=== PATIENT | male | born 1970 | race Hispanic/Latino ===

== ENCOUNTER 2017-03-04 19:57 | Emergency (ER) | payer BC ==
[~2017-03-04] VITALS: Ht 193 cm; Wt 176.9 kg
[~2017-03-04 19:57] MED LIST: ALBUTEROL SULF8.5 GM; ALBUTEROL SULF8.5 GM INH; AMLODIPINE BESY10 MG PO; AMLODIPINE-BEN1 EAC5 PO; ASPIR 8181 MG PO; ASPIRIN325 MG PO; ATORVASTATIN CA40 MG PO; BACLOFEN10 MG PO; BACTRIM DS TAB1 EACH PO; CARVEDILOL25 MG PO; CLOPIDOGREL75 MG PO; CLOTRIMAZOLE15 GM TOP; COREG3.125 MG PO; CYCLOBENZAPRINE10 MG PO; DICYCLOMINE HCL20 MG PO; DOXYCYCLINE HY100 MG PO; FENOFIBRATE160 MG PO; FIORINAL 50-321 EACH PO; GABAPENTIN300 MG PO; HUMALOG100 UNIT/3 SQ; HYDRALAZINE HCL50 MG PO; HYDROXYZINE HCL25 MG PO; IBUPROFEN400 MG PO; ISOSORBIDE MONO30 MG PO; Insulin Detemir SQ; LEVOFLOXACIN500 MG PO; LEVOTHYROXINE50 MCG PO; LISINOPRIL10 MG PO; MELOXICAM7.5 MG PO; METFORMIN HCL500 MG PO; METOCLOPRAMIDE10 MG PO; NITROSTAT0.4 MG SL; NORCO 10-325 T1 EACH; NOVOLOG MI100 UNITS/ SQ; PANTOPRAZOLE SO40 MG PO; PEPCID20 MG PO; PROAIR HFA INH8.5 GM; TUSSIONEX PENN480 ML PO; TYLENOL WITH C1 EACH PO; ULTRAM 50MG50 MG PO; URSO250 MG PO; ZOFRAN ODT4 MG; ZOLOFT50 MG PO; [UNRECOGNIZED DRUG - REMARK] PO
[2017-03-04] MEDS ORDERED: HYDROCODONE/APAP 10MG-325MG TAB PO ONE (21:15)
[2017-03-04] MEDS ORDERED: NIFEDIPINE 10 MG CAP PO ONE (21:15)
[2017-03-04 21:29] LABS: BILIRUBIN,URINE NEGATIVE (NEGATIVE); CLARITY,URINE CLEAR (CLEAR); COLOR,URINE YELLOW (YELLOW); KETONES,URINE NEGATIVE (NEGATIVE); LEUKOCYTE ESTERASE ,URINE NEGATIVE (NEGATIVE); NITRITE,URINE NEGATIVE (NEGATIVE); URINE UROBILINOGEN 0.2 mg/dL (0.2 - 1)
[2017-03-04 21:30] LABS: PROTEIN,URINE DIPSTICK 2+ (NEGATIVE)
[2017-03-04 21:36] LABS: MUCUS,URINE FEW (RARE); RBC,URINE 0-5 /HPF (0-5); WBC,URINE (MAN) 0-5 /HPF (0-5)
--- NOTE | 2017-03-04 22:24 | Diagnostic Imaging Report ---
Exam: US TESTICULAR DOPPLER [facility], US TESTICULAR Clinical History: \S\SWELLING PAIN L TESTICLE \S\N Technique: Sonographic evaluation of the testicles using grayscale and color Doppler. Findings. Both testes are normal in echogenicity and size without intratesticular mass. The right testes measures 5.0 x 2.7 x 3.5 cm and the left testes measures 4.7 x 3.1 x 4.2 cm. Arterial and venous flow is documented to bilateral testicles. There is asymmetrically increased flow to the left testicle when compared to the right. Small left hydrocele with minimal internal echoes suggesting some degree of complexity. No varicocele. Both epididymides are normal in appearance, the left slightly larger than the right but without increased vascularity visible. Impression: 1. Left orchitis. Associated small minimally complex hydrocele. 2. No evidence of torsion. Signed by: Dr Rosangela Maravilla MD on 03/04/2017 10:21 PM
--- NOTE | 2017-03-04 22:24 | Diagnostic Imaging Report ---
Exam: US TESTICULAR DOPPLER [facility], US TESTICULAR Clinical History: \S\SWELLING PAIN L TESTICLE \S\N Technique: Sonographic evaluation of the testicles using grayscale and color Doppler. Findings. Both testes are normal in echogenicity and size without intratesticular mass. The right testes measures 5.0 x 2.7 x 3.5 cm and the left testes measures 4.7 x 3.1 x 4.2 cm. Arterial and venous flow is documented to bilateral testicles. There is asymmetrically increased flow to the left testicle when compared to the right. Small left hydrocele with minimal internal echoes suggesting some degree of complexity. No varicocele. Both epididymides are normal in appearance, the left slightly larger than the right but without increased vascularity visible. Impression: 1. Left orchitis. Associated small minimally complex hydrocele. 2. No evidence of torsion. Signed by: Dr Rosangela Maravilla MD on 03/04/2017 10:21 PM
== END 2017-03-04 23:29 | disposition home or self-care (01) ==
LOC: ER 19:57
DX: R30.0 Dysuria (principal); N45.2 Orchitis; I10 Essential (primary) hypertension; E11.9 Type 2 diabetes mellitus without complications
CPT/HCPCS: 76870; 81001; 87086; 93976; 99283

== ENCOUNTER 2017-03-06 11:10 | Emergency (ER) | payer BC ==
[~2017-03-06] VITALS: Ht 193 cm; Wt 176.9 kg
== END 2017-03-06 12:28 | disposition home or self-care (01) ==
LOC: ER 11:10
DX: N45.1 Epididymitis (principal); I10 Essential (primary) hypertension; E11.9 Type 2 diabetes mellitus without complications; I51.9 Heart disease, unspecified; N28.9 Disorder of kidney and ureter, unspecified
CPT/HCPCS: 99282

== ENCOUNTER 2017-06-20 11:38 | Emergency (ER) | payer BC ==
[~2017-06-20] VITALS: Ht 195.6 cm; Wt 176.9 kg
--- OUTSIDE RECORDS SUMMARY | 2017-06-20 11:40 | XMS REPORT | Clinical Summary ---
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 ERCP Clinical History: abnormal imaging Impression: Intraoperative images are obtained. The radiologist is not present during the procedure. Images are presented for interpretation at the completion of the procedure. Please refer to the procedure report for more details. Number of images obtained: 2 Fluoroscopic time: Not provided Signed: Vu Longoria MD Report Verified Date/Time: 06/22/2016 19:49:39 Reading Location: [address] Consult Reading Room * Tissue Exam (06/21/2016 6:03 PM) Component Value Ref Range Case Report Surgical Pathology Report Case: [id number] Authorizing Provider: Madison Barnard MD Ordering Provider: Madison Barnard MD Ordering Location: [address] Collected: 06/21/2016 1803 Service Pathologist: Odilia Head, Received: [id number] Specimen: Biopsy, Gastric DIAGNOSIS STOMACH, ENDOSCOPIC BIOPSY: - ANTRAL TYPE GASTRIC MUCOSA WITH MILD CHRONIC INFLAMMATION AND REACTIVE GASTROPATHY - NO DEFINITE HELICOBACTER PYLORI-LIKE ORGANISMS SEEN ON WARTHIN-STARRY STAIN - NO INTESTINAL METAPLASIA, DYSPLASIA OR MALIGNANCY NOTED Signing Pathologist Direct Phone Line: [phone] CPT Code(s) 39983; 86125 CLINICAL HISTORY Abnormal imaging SPECIMEN SOURCE Gastric biopsy GROSS DESCRIPTION The specimen is received in a formalin-filled container labeled with the patient's information and labeled "gastric biopsy" and consists of two round fragments of brady-red soft tissue measuring 0.2 and 0.4 cm, submitted entirely in A1. CG/ew MICROSCOPIC DESCRIPTION PERFORMED SPECIAL STUDIES The following special studies were performed on this case and the interpretation is incorporated in the diagnostic report above: WARTHIN-STARRICARDO Specimen Performing Laboratory Tissue - Biopsy, Gastric [address] [address] * Prothrombin time/INR (06/21/2016 5:13 AM) Component Value Ref Range Protime 14.4 11.7 - 14.7 seconds INR 1.1 <=5.9 Specimen Performing Laboratory Blood - Arm, Left [address] [address] Narrative RECOMMENDED COUMADIN/WARFARIN INR THERAPY RANGES STANDARD DOSE: 2.0 - 3.0 Includes: PROPHYLAXIS for venous thrombosis, systemic embolization; TREATMENT for venous thrombosis and/or pulmonary embolus. HIGH RISK: Target INR is 2.5-3.5 for patients with mechanical heart valves. * Triglycerides (06/20/2016 5:15 AM) Component Value Ref Range Triglycerides 351 mg/dL Specimen Performing Laboratory Blood - Arm, Right [address] [address] Narrative TRIGLYCERIDE REFERENCE RANGE Low Risk<150 Borderline Risk 150-199 High [id number] Very High Risk >=500 after 06/19/2016
--- OUTSIDE RECORDS SUMMARY | 2017-06-20 11:41 | XMS REPORT ---
Author [facility] Address Unknown Phone Unavailable Care Team Providers Care Political Science Professor Name Role Phone NICO WISDOM Unavailable Unavailable HANSCALIXTO JASVIR Unavailable Unavailable GUZMANEFRAÍN BONILLA Unavailable Unavailable SABINE, ARIF Unavailable Unavailable SKEFOS, CHRYSTAN Unavailable Unavailable Problems This patient has no known problems. Allergies, Adverse Reactions, Alerts This patient has no known allergies or adverse reactions. Medications This patient has no known medications. Results Test Description Test Time Test Comments Text Results Atomic Results Result Comments RAD, CHEST, 1 VIEW, NON DEPT 2017-04-21 14:57:00 Reason for exam:->CHEST PAIN FINAL REPORT TECHNIQUE: Frontal chest radiograph dated 04/21/2017. CLINICAL HISTORY: Chest pain COMPARISON STUDY: Chest radiograph dated 04/28/2016 IMPRESSION:Lungs are clear. No pleural effusion or pneumothorax. Cardiomediastinal silhouette is normal in size. No pulmonary edema. No fracture. Degenerative changes are seen in the spine. Signed: Rex Maharaj Verified Date/Time: 04/21/2017 14:57:39 Reading Location: [facility] Radiology Reading Room TINE KINASE (CK), TOTAL AND MB 2017-04-21 11:57:00 CREATINE KINASE TOTAL (BEAKER) (test ctmi=526) 398 U/L 29-200 CREATINE KINASE-MB (BEAKER) (test mhdq=786) 3.9 ng/mL 0.0-6.6 CREATINE KINASE-MB INDEX (BEAKER) (test lobu=671) 1.0 % CK-MB Reference Range:<6.7 Normal6.7-10.0 Borderline>10.0 AbnormalTROPONIN [id number] 11:57:00* Test Item Value Reference Range Comments TROPONIN I (BEAKER) (test mbwt=402) 0.02 ng/mL 0.00-0.03 Troponin I (TnI) levels must be interpreted [...] failure, acidosis, acute neurological disease, and persistent tachyarrhythmia.B-TYPE NATRIURETIC FACTOR (BNP) 11:52:00* Test Item Value Reference Range Comments B-TYPE NATRIURETIC PEPTIDE (BEAKER) (test hgxr=644) 13 pg/mL 0-100 [id number] 11:49:00* Test Item Value Reference Range Comments MAGNESIUM (BEAKER) (test imrq=438) 1.5 mg/dL 1.6-2.6 BASIC METABOLIC [id number] 11:49:00* Test Item Value Reference Range Comments SODIUM (BEAKER) (test cnwl=247) 139 meq/L 136-145 POTASSIUM (BEAKER) (test vssi=575) 3.1 meq/L 3.5-5.1 CHLORIDE (BEAKER) (test msvj=355) 102 meq/L 98-107 CO2 (BEAKER) (test pbyi=073) 26 meq/L 22-29 BLOOD UREA NITROGEN (BEAKER) (test xnev=399) 22 mg/dL 7-21 CREATININE (BEAKER) (test zqpi=551) 1.15 mg/dL 0.57-1.25 GLUCOSE RANDOM (BEAKER) (test achg=194) 255 mg/dL 70-105 CALCIUM (BEAKER) (test pnow=724) 9.2 mg/dL 8.4-10.2 EGFR (BEAKER) (test volg=2045) 68 mL/min/1.73 sq m ESTIMATED GFR IS NOT ACCURATE CREATININE CLEARANCE IN PREDICTING GLOMERULAR FILTRATION RATE. ESTIMATED GFR IS NOT APPLICABLE FOR DIALYSIS PATIENTS. [id number] 11:43:00* Test Item Value Reference Range Comments PROTIME (BEAKER) (test byrw=532) 14.5 seconds 11.7-14.7 INR (BEAKER) (test wpmj=062) 1.1 <=5.9 PARTIAL THROMBOPLASTIN TIME (BEAKER) (test yqqg=143) 24.5 seconds 22.5-36.0 RECOMMENDED COUMADIN/WARFARIN INR THERAPY RANGESSTANDARD DOSE: 2.0 - 3.0 Includes: PROPHYLAXIS for venous thrombosis, systemic embolization; TREATMENT for venous thrombosis and/or pulmonary embolus.HIGH RISK: Target INR is 2.5-3.5 for patients with mechanical heart valves.CBC W/PLT COUNT & AUTO [id number] 11:34:00* Test Item Value Reference Range Comments WHITE BLOOD CELL COUNT (BEAKER) (test vazw=252) 6.5 K/ L 3.5-10.5 RED BLOOD CELL COUNT (BEAKER) (test prix=369) 5.01 M/ L 4.63-6.08 HEMOGLOBIN (BEAKER) (test ydpl=048) 15.5 GM/DL 13.7-17.5 HEMATOCRIT (BEAKER) (test arnf=115) 43.7 % 40.1-51.0 MEAN CORPUSCULAR VOLUME (BEAKER) (test jdem=001) 87.2 fL 79.0-92.2 MEAN CORPUSCULAR HEMOGLOBIN (BEAKER) (test lzja=260) 30.9 pg 25.7-32.2 MEAN CORPUSCULAR HEMOGLOBIN CONC (BEAKER) (test jbdx=507) 35.5 GM/DL 32.3- 36.5 RED CELL DISTRIBUTION WIDTH (BEAKER) (test lemd=718) 12.9 % 11.6-14.4 PLATELET COUNT (BEAKER) (test znxb=016) 157 K/CU MM 150-450 MEAN PLATELET VOLUME (BEAKER) (test csfm=569) 11.9 fL 9.4-12.4 NUCLEATED RED BLOOD CELLS (BEAKER) (test xlwa=984) 0 /100 WBC 0-0 NEUTROPHILS RELATIVE PERCENT (BEAKER) (test ojpj=556) 65 % LYMPHOCYTES RELATIVE PERCENT (BEAKER) (test snqb=629) 24 % MONOCYTES RELATIVE PERCENT (BEAKER) (test yfwc=689) 9 % EOSINOPHILS RELATIVE PERCENT (BEAKER) (test wlpm=336) 1 % BASOPHILS RELATIVE PERCENT (BEAKER) (test vbbz=224) 0 % NEUTROPHILS ABSOLUTE COUNT (BEAKER) (test omkx=737) 4.24 K/ L 1.78-5.38 LYMPHOCYTES ABSOLUTE COUNT (BEAKER) (test sxye=677) 1.56 K/ L 1.32-3.57 MONOCYTES ABSOLUTE COUNT (BEAKER) (test oaye=806) 0.57 K/ L 0.30-0.82 EOSINOPHILS ABSOLUTE COUNT (BEAKER) (test ybdp=359) 0.06 K/ L 0.04-0.54 BASOPHILS ABSOLUTE COUNT (BEAKER) (test ftrq=933) 0.02 K/ L 0.01-0.08 IMMATURE GRANULOCYTES-RELATIVE PERCENT (BEAKER) (test dles=8206) 1 % 0-1 PANCREATIC ELASTASE, [id number] 13:46:00* Test Item Value Reference Range Comments SCAN RESULT (test dhgi=[id number]) POCT-GLUCOSE [id number] 09:25:00* Test Item Value Reference Range Comments POC-GLUCOSE METER (BEAKER) (test yfno=1021) 146 mg/dL 70-[address] [facility] [address] [facility] [address] [id number] 05:58:00* Test Item Value Reference Range Comments MAGNESIUM (BEAKER) (test afhp=667) 1.4 mg/dL 1.6-2.6 BASIC METABOLIC [id number] 05:58:00* Test Item Value Reference Range Comments SODIUM (BEAKER) (test aqup=412) 143 meq/L 136-145 POTASSIUM (BEAKER) (test dajk=361) 3.3 meq/L 3.5-5.1 CHLORIDE (BEAKER) (test mora=048) 112 meq/L 98-107 CO2 (BEAKER) (test atso=023) 21 meq/L 22-29 BLOOD UREA NITROGEN (BEAKER) (test blow=706) 6 mg/dL 7-21 CREATININE (BEAKER) (test azox=855) 0.82 mg/dL 0.57-1.25 GLUCOSE RANDOM (BEAKER) (test qgjw=244) 135 mg/dL 70-105 CALCIUM (BEAKER) (test njzf=386) 8.5 mg/dL 8.4-10.2 EGFR (BEAKER) (test noep=0559) 102 mL/min/1.73 sq m ESTIMATED GFR IS NOT ACCURATE CREATININE CLEARANCE IN PREDICTING GLOMERULAR FILTRATION RATE. ESTIMATED GFR IS NOT APPLICABLE FOR DIALYSIS PATIENTS. POCT-GLUCOSE [id number] 21:22:00* Test Item Value Reference Range Comments POC-GLUCOSE METER (BEAKER) (test kzrq=5555) 219 mg/dL 70-110 TESTED AT [address] [address] POCT-GLUCOSE [id number] 16:32:00* Test Item Value Reference Range Comments POC-GLUCOSE METER (BEAKER) (test vbxt=2734) 184 mg/dL 70-110 TESTED AT [address] [address] POCT-GLUCOSE [id number] 14:08:00* Test Item Value Reference Range Comments POC-GLUCOSE METER (BEAKER) (test sqgw=8663) 168 mg/dL 70-110 TESTED AT [address] [address] BASIC METABOLIC [id number] 08:54:00* Test Item Value Reference Range Comments SODIUM (BEAKER) (test apkj=981) 142 meq/L 136-145 POTASSIUM (BEAKER) (test qkuc=769) 3.2 meq/L 3.5-5.1 CHLORIDE (BEAKER) (test lqab=173) 110 meq/L 98-107 CO2 (BEAKER) (test pnnu=701) 24 meq/L 22-29 BLOOD UREA NITROGEN (BEAKER) (test vgwl=263) 4 mg/dL 7-21 CREATININE (BEAKER) (test ueuu=279) 0.79 mg/dL 0.57-1.25 GLUCOSE RANDOM (BEAKER) (test ehfk=582) 146 mg/dL 70-105 CALCIUM (BEAKER) (test rrvj=801) 9.0 mg/dL 8.4-10.2 EGFR (BEAKER) (test cixw=7978) 106 mL/min/1.73 sq m ESTIMATED GFR IS NOT ACCURATE CREATININE CLEARANCE IN PREDICTING GLOMERULAR FILTRATION RATE. ESTIMATED GFR IS NOT APPLICABLE FOR DIALYSIS PATIENTS. POCT-GLUCOSE [id number] 08:29:00* Test Item Value Reference Range Comments POC-GLUCOSE METER (BEAKER) (test hxlh=6424) 142 mg/dL 70-110 [address]ED AT [address] [address] POCT-GLUCOSE [id number] 21:33:00* Test Item Value Reference Range Comments POC-GLUCOSE METER (BEAKER) (test ubtp=4906) 126 mg/dL 70-110 TESTED AT [address] [address] POCT-GLUCOSE [id number] 17:15:00* Test Item Value Reference Range Comments POC-GLUCOSE METER (BEAKER) (test jogb=0571) 147 mg/dL 70-[address] [facility] [address] [facility] [address] OCCULT BLOOD, [id number] 13:29:00* Test Item Value Reference Range Comments FECAL OCCULT BLOOD (BEAKER) (test lyzh=725) Negative Negative POCT-GLUCOSE [id number] 12:38:00* Test Item Value Reference Range Comments POC-GLUCOSE METER (BEAKER) (test gabu=2023) 173 mg/dL 70-[address] [facility] [address] [facility] [address] BASIC METABOLIC [id number] 11:11:00* Test Item Value Reference Range Comments SODIUM (BEAKER) (test urlr=287) 140 meq/L 136-145 POTASSIUM (BEAKER) (test mumm=608) 3.7 meq/L 3.5-5.1 CHLORIDE (BEAKER) (test hwse=077) 106 meq/L 98-107 CO2 (BEAKER) (test ntwe=704) 24 meq/L 22-29 BLOOD UREA NITROGEN (BEAKER) (test zxfv=676) 4 mg/dL 7-21 CREATININE (BEAKER) (test gvyy=720) 0.78 mg/dL 0.57-1.25 GLUCOSE RANDOM (BEAKER) (test uqbv=870) 178 mg/dL 70-105 CALCIUM (BEAKER) (test noyu=893) 9.0 mg/dL 8.4-10.2 EGFR (BEAKER) (test rrpn=1596) 108 mL/min/1.73 sq m ESTIMATED GFR IS NOT ACCURATE CREATININE CLEARANCE IN PREDICTING GLOMERULAR FILTRATION RATE. ESTIMATED GFR IS NOT APPLICABLE FOR DIALYSIS PATIENTS. CBC W/PLT COUNT & AUTO [id number] 11:03:00* Test Item Value Reference Range Comments WHITE BLOOD CELL COUNT (BEAKER) (test dtck=389) 4.5 K/ L 4.0-10.0 RED BLOOD CELL COUNT (BEAKER) (test hfwk=610) 3.95 M/ L 4.20-5.80 HEMOGLOBIN (BEAKER) (test njbd=487) 13.7 GM/DL 13.0-16.8 HEMATOCRIT (BEAKER) (test xgkb=184) 36.4 % 40.0-50.0 MEAN CORPUSCULAR VOLUME (BEAKER) (test mzth=022) 92.0 fL 82.0-98.0 MEAN CORPUSCULAR HEMOGLOBIN (BEAKER) (test pirw=053) 34.7 pg 27.0-33.0 MEAN CORPUSCULAR HEMOGLOBIN CONC (BEAKER) (test tpmz=394) 37.8 GM/DL 32.0- 36.0 RED CELL DISTRIBUTION WIDTH (BEAKER) (test qgmz=078) 12.2 % 10.3-14.2 PLATELET COUNT (BEAKER) (test qcjo=750) 102 K/CU MM 150-430 MEAN PLATELET VOLUME (BEAKER) (test pymn=839) 8.8 fL 6.5-10.5 NUCLEATED RED BLOOD CELLS (BEAKER) (test vpur=977) 0 /100 WBC 0-0 NEUTROPHILS RELATIVE PERCENT (BEAKER) (test asxf=349) 66 % LYMPHOCYTES RELATIVE PERCENT (BEAKER) (test kket=293) 25 % MONOCYTES RELATIVE PERCENT (BEAKER) (test aviy=644) 7 % EOSINOPHILS RELATIVE PERCENT (BEAKER) (test mmzj=594) 2 % BASOPHILS RELATIVE PERCENT (BEAKER) (test mmsb=202) 0 % NEUTROPHILS ABSOLUTE COUNT (BEAKER) (test qvtw=451) 2.98 K/ L 1.80-8.00 LYMPHOCYTES ABSOLUTE COUNT (BEAKER) (test lsqm=367) 1.12 K/ L 1.48-4.50 MONOCYTES ABSOLUTE COUNT (BEAKER) (test rdng=632) 0.31 K/ L 0.00-1.30 EOSINOPHILS ABSOLUTE COUNT (BEAKER) (test ouwx=551) 0.11 K/ L 0.00-0.50 BASOPHILS ABSOLUTE COUNT (BEAKER) (test nbwe=742) 0.01 K/ L 0.00-0.20 0.00POCT-GLUCOSE [id number] 09:07:00* Test Item Value Reference Range Comments POC-GLUCOSE METER (BEAKER) (test qghr=9865) 149 mg/dL 70-[address] [facility] [address] [facility] [address] POCT-GLUCOSE [id number] 22:09:00* Test Item Value Reference Range Comments POC-GLUCOSE METER (BEAKER) (test kwww=1993) 145 mg/dL 70-110 TESTED AT [place] [id number] POCT-GLUCOSE [id number] 17:19:00* Test Item Value Reference Range Comments POC-GLUCOSE METER (BEAKER) (test jmau=6894) 104 mg/dL 70-110 TESTED AT [place] [address] POCT-GLUCOSE [id number] 12:34:00* Test Item Value Reference Range Comments POC-GLUCOSE METER (BEAKER) (test sgvw=3155) 222 mg/dL 70-110 TESTED AT [place] [address] POCT-GLUCOSE [id number] 09:53:00* Test Item Value Reference Range Comments POC-GLUCOSE METER (BEAKER) (test fkoo=6404) 130 mg/dL 70-110 TESTED AT [place] [address] POCT-GLUCOSE [id number] 20:51:00* Test Item Value Reference Range Comments POC-GLUCOSE METER (BEAKER) (test lonx=3227) 157 mg/dL 70-110 TESTED AT [place] [address] POCT-GLUCOSE [id number] 18:45:00* Test Item Value Reference Range Comments POC-GLUCOSE METER (BEAKER) (test etja=1183) 136 mg/dL 70-110 TESTED AT [place] [address] CLOSTRIDIUM DIFFICILE TOXIN [id number] 16:25:00* Test Item Value Reference Range Comments CLOSTRIDIUM DIFFICILE TOXIN, PCR (BEAKER) (test sxah=3850) Not Detected Not Detected This qualitative real-time polymerase chain reaction assay detects the tcdB gene , encoded on the C.difficile pathogenicity locus (PaLoc). The product of tcdB, toxin B, is a cytotoxin essential for causing C.difficile-associated disease ( CDAD) and is found in virtually all toxigenic C.difficile.This assay is performed for patients suspected of having either community-acquired or nosocomial CDAD. Accordingly, only symptomatic patients should be tested and formed stools will be rejected unless ileus is present (i.e., specified when ordering). Patients may be colonized with toxigenic C.difficile strains not causing active disease; therefore, clinical correlation is needed when deciding how to manage patients with a positive test result.The assay has not been validated as a test of cure as amplifiable nucleic acid may persist after effective treatment; therefore, follow-up testing of a positive result is not recommended.[id number] 12:46:00* Test Item Value Reference Range Comments LIPASE (BEAKER) (test mhob=410) 33 U/L 8-78 [id number] 12:46:00* Test Item Value Reference Range Comments AMYLASE (BEAKER) (test lmke=694) 62 U/L 25-125 HEPATIC FUNCTION [id number] 12:46:00* Test Item Value Reference Range Comments TOTAL PROTEIN (BEAKER) (test huyp=448) 6.2 gm/dL 6.0-8.3 ALBUMIN (BEAKER) (test qybo=3360) 3.3 g/dL 3.5-5.0 BILIRUBIN TOTAL (BEAKER) (test vkjy=190) 0.6 mg/dL 0.2-1.2 BILIRUBIN DIRECT (BEAKER) (test fzxr=364) 0.3 mg/dL 0.1-0.5 ALKALINE PHOSPHATASE (BEAKER) (test stdz=530) 63 U/L 40-150 AST (SGOT) (BEAKER) (test itkh=155) 12 U/L 5-34 ALT (SGPT) (BEAKER) (test wizm=192) 19 U/L 6-55 POCT-GLUCOSE [id number] 11:54:00* Test Item Value Reference Range Comments POC-GLUCOSE METER (BEAKER) (test wjys=2474) 167 mg/dL 70-[address] [facility] [address] [facility] [address] CBC W/PLT COUNT & AUTO [id number] 06:09:00* Test Item Value Reference Range Comments WHITE BLOOD CELL COUNT (BEAKER) (test nius=867) 4.1 K/ L 4.0-10.0 RED BLOOD CELL COUNT (BEAKER) (test mtqy=924) 4.22 M/ L 4.20-5.80 HEMOGLOBIN (BEAKER) (test inhw=126) 13.9 GM/DL 13.0-16.8 HEMATOCRIT (BEAKER) (test hgmm=250) 39.5 % 40.0-50.0 MEAN CORPUSCULAR VOLUME (BEAKER) (test fqgx=856) 93.6 fL 82.0-98.0 MEAN CORPUSCULAR HEMOGLOBIN (BEAKER) (test hkwk=921) 32.9 pg 27.0-33.0 MEAN CORPUSCULAR HEMOGLOBIN CONC (BEAKER) (test mqak=477) 35.2 GM/DL 32.0- 36.0 RED CELL DISTRIBUTION WIDTH (BEAKER) (test ejqx=214) 12.5 % 10.3-14.2 PLATELET COUNT (BEAKER) (test hcdg=518) 95 K/CU MM 150-430 MEAN PLATELET VOLUME (BEAKER) (test zcrp=462) 8.9 fL 6.5-10.5 NUCLEATED RED BLOOD CELLS (BEAKER) (test uexn=790) 0 /100 WBC 0-0 NEUTROPHILS RELATIVE PERCENT (BEAKER) (test alck=074) 53 % LYMPHOCYTES RELATIVE PERCENT (BEAKER) (test ddrg=605) 32 % MONOCYTES RELATIVE PERCENT (BEAKER) (test lhzb=041) 10 % EOSINOPHILS RELATIVE PERCENT (BEAKER) (test cibq=823) 4 % BASOPHILS RELATIVE PERCENT (BEAKER) (test hvez=902) 0 % NEUTROPHILS ABSOLUTE COUNT (BEAKER) (test eilh=493) 2.19 K/ L 1.80-8.00 LYMPHOCYTES ABSOLUTE COUNT (BEAKER) (test yjwk=500) 1.33 K/ L 1.48-4.50 MONOCYTES ABSOLUTE COUNT (BEAKER) (test hyno=065) 0.41 K/ L 0.00-1.30 EOSINOPHILS ABSOLUTE COUNT (BEAKER) (test aumh=692) 0.17 K/ L 0.00-0.50 BASOPHILS ABSOLUTE COUNT (BEAKER) (test xpgi=018) 0.00 K/ L 0.00[facility] [id number] 05:43:00* Test Item Value Reference Range Comments SODIUM (BEAKER) (test cfot=095) 140 meq/L 136-145 POTASSIUM (BEAKER) (test qwjd=511) 3.3 meq/L 3.5-5.1 CHLORIDE (BEAKER) (test ekzs=717) 108 meq/L 98-107 CO2 (BEAKER) (test mijw=480) 23 meq/L 22-29 BLOOD UREA NITROGEN (BEAKER) (test eaey=738) 6 mg/dL 7-21 CREATININE (BEAKER) (test tvil=644) 0.74 mg/dL 0.57-1.25 GLUCOSE RANDOM (BEAKER) (test imhy=206) 119 mg/dL 70-105 CALCIUM (BEAKER) (test foxy=676) 8.7 mg/dL 8.4-10.2 EGFR (BEAKER) (test ifrn=8356) 114 mL/min/1.73 sq m ESTIMATED GFR IS NOT ACCURATE CREATININE CLEARANCE IN PREDICTING GLOMERULAR FILTRATION RATE. ESTIMATED GFR IS NOT APPLICABLE FOR DIALYSIS PATIENTS. POCT-GLUCOSE [id number] 21:25:00* Test Item Value Reference Range Comments POC-GLUCOSE METER (BEAKER) (test jjfy=2386) 147 mg/dL 70-[address] [facility] [address] [facility] [address] POCT-GLUCOSE [id number] 18:26:00* Test Item Value Reference Range Comments POC-GLUCOSE METER (BEAKER) (test ayxs=7404) 193 mg/dL 70-[address] [facility] [address] [facility] [address] [id number] 07:43:00* Test Item Value Reference Range Comments PHOSPHORUS (BEAKER) (test jgfr=110) 3.4 mg/dL 2.3-4.7 [id number] 07:43:00* Test Item Value Reference Range Comments MAGNESIUM (BEAKER) (test ttvm=351) 1.7 mg/dL 1.6-2.6 BASIC METABOLIC [id number] 07:43:00* Test Item Value Reference Range Comments SODIUM (BEAKER) (test xssh=273) 139 meq/L 136-145 POTASSIUM (BEAKER) (test zlyk=957) 3.6 meq/L 3.5-5.1 CHLORIDE (BEAKER) (test lwlw=591) 108 meq/L 98-107 CO2 (BEAKER) (test eihe=891) 23 meq/L 22-29 BLOOD UREA NITROGEN (BEAKER) (test awdu=474) 9 mg/dL 7-21 CREATININE (BEAKER) (test oxdp=785) 0.76 mg/dL 0.57-1.25 GLUCOSE RANDOM (BEAKER) (test hogz=348) 123 mg/dL 70-105 CALCIUM (BEAKER) (test aijt=168) 8.4 mg/dL 8.4-10.2 EGFR (BEAKER) (test giqk=9495) 111 mL/min/1.73 sq m ESTIMATED GFR IS NOT ACCURATE CREATININE CLEARANCE IN PREDICTING GLOMERULAR FILTRATION RATE. ESTIMATED GFR IS NOT APPLICABLE FOR DIALYSIS PATIENTS. [id number] 07:43:00* Test Item Value Reference Range Comments LIPASE (BEAKER) (test jknk=644) 56 U/L 8-78 POCT-GLUCOSE [id number] 07:06:00* Test Item Value Reference Range Comments POC-GLUCOSE METER (BEAKER) (test yhmp=6042) 127 mg/dL 70-110 TESTED AT [address] [address] POCT-GLUCOSE [id number] 21:31:00* Test Item Value Reference Range Comments POC-GLUCOSE METER (BEAKER) (test evmk=0322) 140 mg/dL 70-110 TESTED AT [address] [address] POCT-GLUCOSE [id number] 18:57:00* Test Item Value Reference Range Comments POC-GLUCOSE METER (BEAKER) (test zoha=2587) 139 mg/dL 70-110 TESTED AT [address] [address] POCT-GLUCOSE [id number] 12:25:00* Test Item Value Reference Range Comments POC-GLUCOSE METER (BEAKER) (test dvvi=6795) 138 mg/dL 70-110 TESTED AT [address] [address] POCT-GLUCOSE [id number] 08:48:00* Test Item Value Reference Range Comments POC-GLUCOSE METER (BEAKER) (test uabo=2895) 129 mg/dL 70-110 TESTED AT [address] [address] [id number] 05:24:00* Test Item Value Reference Range Comments MAGNESIUM (BEAKER) (test eijg=951) 1.6 mg/dL 1.6-2.6 BASIC METABOLIC [id number] 05:24:00* Test Item Value Reference Range Comments SODIUM (BEAKER) (test paym=786) 140 meq/L 136-145 POTASSIUM (BEAKER) (test fwrb=649) 3.6 meq/L 3.5-5.1 CHLORIDE (BEAKER) (test xfyq=285) 109 meq/L 98-107 CO2 (BEAKER) (test biqa=312) 24 meq/L 22-29 BLOOD UREA NITROGEN (BEAKER) (test nnju=057) 16 mg/dL 7-21 CREATININE (BEAKER) (test enlf=502) 0.95 mg/dL 0.57-1.25 GLUCOSE RANDOM (BEAKER) (test jqod=467) 134 mg/dL 70-105 CALCIUM (BEAKER) (test kvzg=493) 8.4 mg/dL 8.4-10.2 EGFR (BEAKER) (test vzxv=1852) 86 mL/min/1.73 sq m ESTIMATED GFR IS NOT ACCURATE CREATININE CLEARANCE IN PREDICTING GLOMERULAR FILTRATION RATE. ESTIMATED GFR IS NOT APPLICABLE FOR DIALYSIS PATIENTS. HEPATIC FUNCTION [id number] 05:24:00* Test Item Value Reference Range Comments TOTAL PROTEIN (BEAKER) (test ygzk=788) 5.6 gm/dL 6.0-8.3 ALBUMIN (BEAKER) (test fwhf=6635) 3.1 g/dL 3.5-5.0 BILIRUBIN TOTAL (BEAKER) (test wphk=214) 0.7 mg/dL 0.2-1.2 BILIRUBIN DIRECT (BEAKER) (test ymck=963) 0.3 mg/dL 0.1-0.5 ALKALINE PHOSPHATASE (BEAKER) (test zhhg=718) 53 U/L 40-150 AST (SGOT) (BEAKER) (test adro=923) 15 U/L 5-34 ALT (SGPT) (BEAKER) (test hywd=567) 32 U/L 6-55 [id number] 05:24:00* Test Item Value Reference Range Comments LIPASE (BEAKER) (test fhde=574) 480 U/L 8-78 POCT-GLUCOSE [id number] 22:11:00* Test Item Value Reference Range Comments POC-GLUCOSE METER (BEAKER) (test sszt=2712) 153 mg/dL 70-[address] [facility] [address] [facility] [address] POCT-GLUCOSE [id number] 17:42:00* Test Item Value Reference Range Comments POC-GLUCOSE METER (BEAKER) (test aorv=5456) 154 mg/dL 70-110 TESTED AT [address] [address] POCT-GLUCOSE [id number] 12:09:00* Test Item Value Reference Range Comments POC-GLUCOSE METER (BEAKER) (test ghcn=3973) 175 mg/dL 70-[address] [facility] [address] [facility] [address] CBC W/PLT COUNT & AUTO [id number] 10:11:00* Test Item Value Reference Range Comments WHITE BLOOD CELL COUNT (BEAKER) (test zvqm=557) 10.7 K/ L 4.0-10.0 RED BLOOD CELL COUNT (BEAKER) (test vqlf=881) 5.16 M/ L 4.20-5.80 HEMOGLOBIN (BEAKER) (test fkts=522) 15.9 GM/DL 13.0-16.8 HEMATOCRIT (BEAKER) (test nzoe=549) 47.7 % 40.0-50.0 MEAN CORPUSCULAR VOLUME (BEAKER) (test tlhp=743) 92.5 fL 82.0-98.0 MEAN CORPUSCULAR HEMOGLOBIN (BEAKER) (test slld=017) 30.9 pg 27.0-33.0 MEAN CORPUSCULAR HEMOGLOBIN CONC (BEAKER) (test dfcv=729) 33.4 GM/DL 32.0- 36.0 RED CELL DISTRIBUTION WIDTH (BEAKER) (test pcup=316) 12.7 % 10.3-14.2 PLATELET COUNT (BEAKER) (test vowx=601) 129 K/CU MM 150-430 MEAN PLATELET VOLUME (BEAKER) (test daqp=933) 8.6 fL 6.5-10.5 NUCLEATED RED BLOOD CELLS (BEAKER) (test xxhm=796) 0 /100 WBC 0-0 NEUTROPHILS RELATIVE PERCENT (BEAKER) (test mslc=255) 84 % LYMPHOCYTES RELATIVE PERCENT (BEAKER) (test nsok=597) 11 % MONOCYTES RELATIVE PERCENT (BEAKER) (test dpkl=171) 5 % EOSINOPHILS RELATIVE PERCENT (BEAKER) (test dcbd=965) 0 % BASOPHILS RELATIVE PERCENT (BEAKER) (test mgbc=488) 0 % NEUTROPHILS ABSOLUTE COUNT (BEAKER) (test kgxo=575) 8.93 K/ L 1.80-8.00 LYMPHOCYTES ABSOLUTE COUNT (BEAKER) (test fbbd=103) 1.12 K/ L 1.48-4.50 MONOCYTES ABSOLUTE COUNT (BEAKER) (test wbii=229) 0.58 K/ L 0.00-1.30 EOSINOPHILS ABSOLUTE COUNT (BEAKER) (test mxst=572) 0.04 K/ L 0.00-0.50 BASOPHILS ABSOLUTE COUNT (BEAKER) (test qkpn=117) 0.02 K/ L 0.00-0.20 0.00POCT-GLUCOSE [id number] 08:17:00* Test Item Value Reference Range Comments POC-GLUCOSE METER (BEAKER) (test lxtf=5027) 203 mg/dL 70-[address] [facility] [address] [facility] [address] [id number] 07:11:00* Test Item Value Reference Range Comments LIPASE (BEAKER) (test swfh=168) > U/L 8-78 [id number] 07:02:00* Test Item Value Reference Range Comments MAGNESIUM (BEAKER) (test xbma=080) 1.9 mg/dL 1.6-2.6 BASIC METABOLIC [id number] 07:02:00* Test Item Value Reference Range Comments SODIUM (BEAKER) (test rbkv=488) 138 meq/L 136-145 POTASSIUM (BEAKER) (test goqx=379) 4.3 meq/L 3.5-5.1 CHLORIDE (BEAKER) (test znfi=533) 107 meq/L 98-107 CO2 (BEAKER) (test aeem=810) 20 meq/L 22-29 BLOOD UREA NITROGEN (BEAKER) (test ubnw=597) 12 mg/dL 7-21 CREATININE (BEAKER) (test bhxq=276) 1.01 mg/dL 0.57-1.25 GLUCOSE RANDOM (BEAKER) (test tdql=071) 207 mg/dL 70-105 CALCIUM (BEAKER) (test uoub=666) 9.3 mg/dL 8.4-10.2 EGFR (BEAKER) (test pstt=7724) 80 mL/min/1.73 sq m ESTIMATED GFR IS NOT ACCURATE CREATININE CLEARANCE IN PREDICTING GLOMERULAR FILTRATION RATE. ESTIMATED GFR IS NOT APPLICABLE FOR DIALYSIS PATIENTS. HEPATIC FUNCTION [id number] 07:02:00* Test Item Value Reference Range Comments TOTAL PROTEIN (BEAKER) (test ktho=871) 7.2 gm/dL 6.0-8.3 ALBUMIN (BEAKER) (test uebo=4187) 4.0 g/dL 3.5-5.0 BILIRUBIN TOTAL (BEAKER) (test hzzv=192) 1.3 mg/dL 0.2-1.2 BILIRUBIN DIRECT (BEAKER) (test iupy=739) 0.5 mg/dL 0.1-0.5 ALKALINE PHOSPHATASE (BEAKER) (test wsfo=084) 83 U/L 40-150 AST (SGOT) (BEAKER) (test znhs=603) 43 U/L 5-34 ALT (SGPT) (BEAKER) (test idsj=753) 63 U/L 6-55 POCT-GLUCOSE [id number] 22:05:00* Test Item Value Reference Range Comments POC-GLUCOSE METER (BEAKER) (test uvab=3844) 156 mg/dL 70-[address] [facility] [address] [facility] [address] POCT-GLUCOSE [id number] 22:05:00* Test Item Value Reference Range Comments POC-GLUCOSE METER (BEAKER) (test ebfc=5514) 150 mg/dL 70-110 TESTED AT [address] [address] TISSUE [id number] 17:38:00Surgical Pathology Report Case: [id number] Authorizing Provider: Madison Guzman MD Ordering Provider: Madison Guzman MD Ordering Location: [address] Collected: 1803 Service Pathologist: Odilia Head, Received: 06/22/2016 0747 Specimen: Biopsy, Gastric STOMACH, ENDOSCOPIC BIOPSY: - ANTRAL TYPE GASTRIC MUCOSA WITH MILD CHRONIC INFLAMMATION AND REACTIVE GASTROPATHY - NO DEFINITE HELICOBACTER PYLORI-LIKE ORGANISMS SEEN ON WARTHIN- STARRY STAIN - NO INTESTINAL METAPLASIA, DYSPLASIA OR MALIGNANCY NOTED Signing Pathologist Direct Phone Line: [phone]; [id number] imagingGastric biopsyThe specimen is received in a formalin-filled container labeled with the patient's information and labeled "gastric biopsy" and consists of two round fragments of brady-red soft tissue measuring 0.2 and 0.4 cm, submitted entirely in A1. CG/ewPERFORMEDThe following special studies were performed on this case and the interpretation is incorporated in the diagnostic report above:WARTHIN- STARRYPOCT-GLUCOSE [id number] 17:05:00* Test Item Value Reference Range Comments POC-GLUCOSE METER (BEAKER) (test noni=4111) 218 mg/dL 70-[address] [facility] [address] [facility] [address] POCT-GLUCOSE [id number] 12:56:00* Test Item Value Reference Range Comments POC-GLUCOSE METER (BEAKER) (test xcek=3928) 149 mg/dL 70-[address] [facility] [address] [facility] [address] CBC W/PLT COUNT & AUTO [id number] 09:05:00* Test Item Value Reference Range Comments WHITE BLOOD CELL COUNT (BEAKER) (test bvny=982) 3.6 K/ L 4.0-10.0 RED BLOOD CELL COUNT (BEAKER) (test ahhn=632) 4.29 M/ L 4.20-5.80 HEMOGLOBIN (BEAKER) (test gdms=756) 13.8 GM/DL 13.0-16.8 HEMATOCRIT (BEAKER) (test kjnt=208) 39.6 % 40.0-50.0 MEAN CORPUSCULAR VOLUME (BEAKER) (test dwpi=254) 92.4 fL 82.0-98.0 MEAN CORPUSCULAR HEMOGLOBIN (BEAKER) (test ndez=840) 32.3 pg 27.0-33.0 MEAN CORPUSCULAR HEMOGLOBIN CONC (BEAKER) (test iyri=765) 35.0 GM/DL 32.0- 36.0 RED CELL DISTRIBUTION WIDTH (BEAKER) (test uabm=121) 13.8 % 10.3-14.2 PLATELET COUNT (BEAKER) (test mppo=312) 119 K/CU MM 150-430 MEAN PLATELET VOLUME (BEAKER) (test seda=928) 8.6 fL 6.5-10.5 NUCLEATED RED BLOOD CELLS (BEAKER) (test vgsf=652) 0 /100 WBC 0-0 NEUTROPHILS RELATIVE PERCENT (BEAKER) (test qbmi=037) 48 % LYMPHOCYTES RELATIVE PERCENT (BEAKER) (test pkux=546) 40 % MONOCYTES RELATIVE PERCENT (BEAKER) (test earp=433) 8 % EOSINOPHILS RELATIVE PERCENT (BEAKER) (test bsnr=904) 3 % BASOPHILS RELATIVE PERCENT (BEAKER) (test cavo=500) 1 % NEUTROPHILS ABSOLUTE COUNT (BEAKER) (test qwbh=856) 1.71 K/ L 1.80-8.00 LYMPHOCYTES ABSOLUTE COUNT (BEAKER) (test qvxt=625) 1.45 K/ L 1.48-4.50 MONOCYTES ABSOLUTE COUNT (BEAKER) (test delc=552) 0.30 K/ L 0.00-1.30 EOSINOPHILS ABSOLUTE COUNT (BEAKER) (test ypep=509) 0.10 K/ L 0.00-0.50 BASOPHILS ABSOLUTE COUNT (BEAKER) (test mtyl=802) 0.04 K/ L 0.00-0.20 0.00POCT-GLUCOSE [id number] 07:54:00* Test Item Value Reference Range Comments POC-GLUCOSE METER (BEAKER) (test bgwg=5588) 139 mg/dL 70-[address] [facility] [address] [facility] [address] [id number] 06:50:00* Test Item Value Reference Range Comments MAGNESIUM (BEAKER) (test xdfe=217) 2.0 mg/dL 1.6-2.6 BASIC METABOLIC [id number] 06:50:00* Test Item Value Reference Range Comments SODIUM (BEAKER) (test oidz=865) 139 meq/L 136-145 POTASSIUM (BEAKER) (test qesm=288) 3.6 meq/L 3.5-5.1 CHLORIDE (BEAKER) (test cdge=992) 106 meq/L 98-107 CO2 (BEAKER) (test mzgs=370) 21 meq/L 22-29 BLOOD UREA NITROGEN (BEAKER) (test rtkx=864) 7 mg/dL 7-21 CREATININE (BEAKER) (test xbvx=673) 0.81 mg/dL 0.57-1.25 GLUCOSE RANDOM (BEAKER) (test qwhs=760) 146 mg/dL 70-105 CALCIUM (BEAKER) (test crpm=761) 9.0 mg/dL 8.4-10.2 EGFR (BEAKER) (test prld=9668) 103 mL/min/1.73 sq m ESTIMATED GFR IS NOT ACCURATE CREATININE CLEARANCE IN PREDICTING GLOMERULAR FILTRATION RATE. ESTIMATED GFR IS NOT APPLICABLE FOR DIALYSIS PATIENTS. POCT-GLUCOSE [id number] 21:24:00* Test Item Value Reference Range Comments POC-GLUCOSE METER (BEAKER) (test uvlg=9555) 164 mg/dL 70-110 TESTED AT [address] [address] POCT-GLUCOSE [id number] 18:31:00* Test Item Value Reference Range Comments POC-GLUCOSE METER (BEAKER) (test ezxv=0368) 158 mg/dL 70-110 TESTED AT [address] [address] POCT-GLUCOSE [id number] 13:16:00* Test Item Value Reference Range Comments POC-GLUCOSE METER (BEAKER) (test nljo=5674) 160 mg/dL 70-110 TESTED AT [address] [address] POCT-GLUCOSE [id number] 09:06:00* Test Item Value Reference Range Comments POC-GLUCOSE METER (BEAKER) (test srfc=7683) 150 mg/dL 70-110 TESTED AT [address] [address] CBC W/PLT COUNT & AUTO [id number] 06:13:00* Test Item Value Reference Range Comments WHITE BLOOD CELL COUNT (BEAKER) (test vkbg=714) 3.8 K/ L 4.0-10.0 RED BLOOD CELL COUNT (BEAKER) (test zdif=566) 4.21 M/ L 4.20-5.80 HEMOGLOBIN (BEAKER) (test sadi=897) 13.7 GM/DL 13.0-16.8 HEMATOCRIT (BEAKER) (test xtih=472) 38.9 % 40.0-50.0 MEAN CORPUSCULAR VOLUME (BEAKER) (test zuvt=651) 92.4 fL 82.0-98.0 MEAN CORPUSCULAR HEMOGLOBIN (BEAKER) (test tccm=507) 32.6 pg 27.0-33.0 MEAN CORPUSCULAR HEMOGLOBIN CONC (BEAKER) (test qvaa=188) 35.3 GM/DL 32.0- 36.0 RED CELL DISTRIBUTION WIDTH (BEAKER) (test idxy=780) 12.7 % 10.3-14.2 PLATELET COUNT (BEAKER) (test zucw=024) 122 K/CU MM 150-430 MEAN PLATELET VOLUME (BEAKER) (test dlob=517) 8.6 fL 6.5-10.5 NUCLEATED RED BLOOD CELLS (BEAKER) (test otlm=644) 0 /100 WBC 0-0 NEUTROPHILS RELATIVE PERCENT (BEAKER) (test wddm=757) 47 % LYMPHOCYTES RELATIVE PERCENT (BEAKER) (test ljdx=070) 41 % MONOCYTES RELATIVE PERCENT (BEAKER) (test idpi=682) 8 % EOSINOPHILS RELATIVE PERCENT (BEAKER) (test hruw=612) 4 % BASOPHILS RELATIVE PERCENT (BEAKER) (test wkkq=373) 0 % NEUTROPHILS ABSOLUTE COUNT (BEAKER) (test tnlk=990) 1.78 K/ L 1.80-8.00 LYMPHOCYTES ABSOLUTE COUNT (BEAKER) (test wirj=046) 1.56 K/ L 1.48-4.50 MONOCYTES ABSOLUTE COUNT (BEAKER) (test zwhd=917) 0.30 K/ L 0.00-1.30 EOSINOPHILS ABSOLUTE COUNT (BEAKER) (test btki=863) 0.14 K/ L 0.00-0.50 BASOPHILS ABSOLUTE COUNT (BEAKER) (test rkpc=843) 0.01 K/ L 0.00-0.20 0.00BASI METABOLIC [id number] 06:12:00* Test Item Value Reference Range Comments SODIUM (BEAKER) (test odee=805) 140 meq/L 136-145 POTASSIUM (BEAKER) (test pbrh=222) 3.6 meq/L 3.5-5.1 CHLORIDE (BEAKER) (test ybzi=800) 107 meq/L 98-107 CO2 (BEAKER) (test skrh=678) 23 meq/L 22-29 BLOOD UREA NITROGEN (BEAKER) (test dsoz=654) 5 mg/dL 7-21 CREATININE (BEAKER) (test kbzg=906) 0.84 mg/dL 0.57-1.25 GLUCOSE RANDOM (BEAKER) (test itkd=865) 144 mg/dL 70-105 CALCIUM (BEAKER) (test bolk=624) 8.7 mg/dL 8.4-10.2 EGFR (BEAKER) (test qpnc=5972) 99 mL/min/1.73 sq m ESTIMATED GFR IS NOT ACCURATE CREATININE CLEARANCE IN PREDICTING GLOMERULAR FILTRATION RATE. ESTIMATED GFR IS NOT APPLICABLE FOR DIALYSIS PATIENTS. PROTHROMBIN TIME/[id number] 05:50:00* Test Item Value Reference Range Comments PROTIME (BEAKER) (test mwsb=393) 14.4 seconds 11.7-14.7 INR (BEAKER) (test ijpm=245) 1.1 <=5.9 RECOMMENDED COUMADIN/WARFARIN INR THERAPY RANGESSTANDARD DOSE: 2.0 - 3.0 Includes: PROPHYLAXIS for venous thrombosis, systemic embolization; TREATMENT for venous thrombosis and/or pulmonary embolus.HIGH RISK: Target INR is 2.5-3.5 for patients with mechanical heart valves.POCT-GLUCOSE [id number] 22:08:00 * Test Item Value Reference Range Comments POC-GLUCOSE METER (BEAKER) (test xwfr=0482) 164 mg/dL 70-110 TESTED AT [address] [address] POCT-GLUCOSE [id number] 17:46:00* Test Item Value Reference Range Comments POC-GLUCOSE METER (BEAKER) (test mmtr=7605) 158 mg/dL 70-110 TESTED AT [place] [id number] [facility] [address] POCT-GLUCOSE [id number] 12:03:00* Test Item Value Reference Range Comments POC-GLUCOSE METER (BEAKER) (test vmmp=8125) 231 mg/dL 70-110 TESTED AT [place] [id number] [facility] [address] POCT-GLUCOSE [id number] 09:50:00* Test Item Value Reference Range Comments POC-GLUCOSE METER (BEAKER) (test icrq=3207) 169 mg/dL 70-110 TESTED AT [address] [address] [id number] 07:16:00* Test Item Value Reference Range Comments TRIGLYCERIDES (BEAKER) (test swfa=341) 351 mg/dL TRIGLYCERIDE REFERENCE RANGELow Risk <150Borderline Risk 150-199High Risk 200- 499Very High Risk >=500BASIC METABOLIC [id number] 07:16:00* Test Item Value Reference Range Comments SODIUM (BEAKER) (test cnpg=327) 140 meq/L 136-145 POTASSIUM (BEAKER) (test pwyq=588) 3.6 meq/L 3.5-5.1 CHLORIDE (BEAKER) (test cbsd=512) 107 meq/L 98-107 CO2 (BEAKER) (test ahbm=856) 24 meq/L 22-29 BLOOD UREA NITROGEN (BEAKER) (test kdyg=112) 5 mg/dL 7-21 CREATININE (BEAKER) (test kmlx=767) 0.78 mg/dL 0.57-1.25 GLUCOSE RANDOM (BEAKER) (test vgsf=823) 135 mg/dL 70-105 CALCIUM (BEAKER) (test ixej=663) 8.7 mg/dL 8.4-10.2 EGFR (BEAKER) (test afmj=0546) 108 mL/min/1.73 sq m ESTIMATED GFR IS NOT ACCURATE CREATININE CLEARANCE IN PREDICTING GLOMERULAR FILTRATION RATE. ESTIMATED GFR IS NOT APPLICABLE FOR DIALYSIS PATIENTS. POCT-GLUCOSE [id number] 21:42:00* Test Item Value Reference Range Comments POC-GLUCOSE METER (BEAKER) (test cfla=5469) 189 mg/dL 70-110 TESTED AT [place] [address] POCT-GLUCOSE [id number] 18:31:00* Test Item Value Reference Range Comments POC-GLUCOSE METER (BEAKER) (test sash=9282) 171 mg/dL 70-110 TESTED AT [place] [address] POCT-GLUCOSE [id number] 12:38:00* Test Item Value Reference Range Comments POC-GLUCOSE METER (BEAKER) (test hctk=1802) 229 mg/dL 70-110 TESTED AT [place] [id number] POCT-GLUCOSE [id number] 07:47:00* Test Item Value Reference Range Comments POC-GLUCOSE METER (BEAKER) (test benn=5598) 153 mg/dL 70-110 TESTED AT [place] [address] B-TYPE NATRIURETIC FACTOR (BNP)2016-06-19 06:42:00* Test Item Value Reference Range Comments B-TYPE NATRIURETIC PEPTIDE (BEAKER) (test qlsu=039) 48 pg/mL 0-100 [id number] 06:37:00* Test Item Value Reference Range Comments MAGNESIUM (BEAKER) (test atlk=797) 1.7 mg/dL 1.6-2.6 BASIC METABOLIC [id number] 06:37:00* Test Item Value Reference Range Comments SODIUM (BEAKER) (test fxgi=195) 140 meq/L 136-145 POTASSIUM (BEAKER) (test vjsk=932) 3.4 meq/L 3.5-5.1 CHLORIDE (BEAKER) (test ukwf=122) 107 meq/L 98-107 CO2 (BEAKER) (test xrib=202) 24 meq/L 22-29 BLOOD UREA NITROGEN (BEAKER) (test yajm=368) 6 mg/dL 7-21 CREATININE (BEAKER) (test loor=650) 0.77 mg/dL 0.57-1.25 GLUCOSE RANDOM (BEAKER) (test oepr=165) 138 mg/dL 70-105 CALCIUM (BEAKER) (test omyo=405) 8.6 mg/dL 8.4-10.2 EGFR (BEAKER) (test qvcv=4757) 109 mL/min/1.73 sq m ESTIMATED GFR IS NOT ACCURATE CREATININE CLEARANCE IN PREDICTING GLOMERULAR FILTRATION RATE. ESTIMATED GFR IS NOT APPLICABLE FOR DIALYSIS PATIENTS. POCT-GLUCOSE [id number] 21:18:00* Test Item Value Reference Range Comments POC-GLUCOSE METER (BEAKER) (test yauf=5885) 191 mg/dL 70-110 [address]ED AT [address] [address] POCT-GLUCOSE [id number] 17:13:00* Test Item Value Reference Range Comments POC-GLUCOSE METER (BEAKER) (test qcaq=5485) 141 mg/dL 70-110 TESTED AT [address] [address] POCT-GLUCOSE [id number] 12:20:00* Test Item Value Reference Range Comments POC-GLUCOSE METER (BEAKER) (test djyh=7322) 290 mg/dL 70-110 TESTED AT [address] [address] SEDIMENTATION [id number] 08:28:00* Test Item Value Reference Range Comments SEDIMENTATION RATE, ERYTHROCYTE (BEAKER) (test hakg=833) 14 mm/HR 0-15 POCT-GLUCOSE [id number] 08:04:00* Test Item Value Reference Range Comments POC-GLUCOSE METER (BEAKER) (test dxbv=4813) 165 mg/dL 70-110 TESTED AT [address] [address] BASIC METABOLIC [id number] 04:53:00* Test Item Value Reference Range Comments SODIUM (BEAKER) (test vcor=880) 138 meq/L 136-145 POTASSIUM (BEAKER) (test yhpj=097) 3.5 meq/L 3.5-5.1 CHLORIDE (BEAKER) (test itfx=730) 105 meq/L 98-107 CO2 (BEAKER) (test wgbl=612) 25 meq/L 22-29 BLOOD UREA NITROGEN (BEAKER) (test cugh=271) 9 mg/dL 7-21 CREATININE (BEAKER) (test vvdv=489) 0.92 mg/dL 0.57-1.25 GLUCOSE RANDOM (BEAKER) (test hwaz=065) 134 mg/dL 70-105 CALCIUM (BEAKER) (test whyh=777) 8.5 mg/dL 8.4-10.2 EGFR (BEAKER) (test gqkb=9565) 89 mL/min/1.73 sq m ESTIMATED GFR IS NOT ACCURATE CREATININE CLEARANCE IN PREDICTING GLOMERULAR FILTRATION RATE. ESTIMATED GFR IS NOT APPLICABLE FOR DIALYSIS PATIENTS. POCT-GLUCOSE [id number] 22:43:00* Test Item Value Reference Range Comments POC-GLUCOSE METER (BEAKER) (test rmmd=4563) 160 mg/dL 70-110 [address]ED AT [address] [address] POCT-GLUCOSE [id number] 17:55:00* Test Item Value Reference Range Comments POC-GLUCOSE METER (BEAKER) (test vqgy=4322) 216 mg/dL 70-110 TESTED AT [address] [address] POCT-GLUCOSE [id number] 13:42:00* Test Item Value Reference Range Comments POC-GLUCOSE METER (BEAKER) (test htdr=0184) 148 mg/dL 70-110 TESTED AT [address] [address] POCT-GLUCOSE [id number] 08:01:00* Test Item Value Reference Range Comments POC-GLUCOSE METER (BEAKER) (test ljum=9461) 160 mg/dL 70-110 TESTED AT [address] [address] POCT-GLUCOSE [id number] 07:06:00* Test Item Value Reference Range Comments POC-GLUCOSE METER (BEAKER) (test jgiu=6439) 160 mg/dL 70-[address] [facility] [address] [facility] [address] CREATINE KINASE (CK)2016-06-17 05:13:00* Test Item Value Reference Range Comments CREATINE KINASE TOTAL (BEAKER) (test nphp=660) 90 U/L 29-200 BASIC METABOLIC [id number] 05:12:00* Test Item Value Reference Range Comments SODIUM (BEAKER) (test pcsb=171) 140 meq/L 136-145 POTASSIUM (BEAKER) (test emuh=875) 3.4 meq/L 3.5-5.1 CHLORIDE (BEAKER) (test jdjd=996) 105 meq/L 98-107 CO2 (BEAKER) (test cppu=065) 26 meq/L 22-29 BLOOD UREA NITROGEN (BEAKER) (test umwx=856) 9 mg/dL 7-21 CREATININE (BEAKER) (test gcxp=492) 0.86 mg/dL 0.57-1.25 GLUCOSE RANDOM (BEAKER) (test owuk=815) 127 mg/dL 70-105 CALCIUM (BEAKER) (test ehqi=842) 8.8 mg/dL 8.4-10.2 EGFR (BEAKER) (test qcat=7301) 96 mL/min/1.73 sq m ESTIMATED GFR IS NOT ACCURATE CREATININE CLEARANCE IN PREDICTING GLOMERULAR FILTRATION RATE. ESTIMATED GFR IS NOT APPLICABLE FOR DIALYSIS PATIENTS. CBC W/PLT COUNT & AUTO [id number] 05:07:00* Test Item Value Reference Range Comments WHITE BLOOD CELL COUNT (BEAKER) (test eokh=870) 3.6 K/ L 4.0-10.0 RED BLOOD CELL COUNT (BEAKER) (test vngg=320) 4.44 M/ L 4.20-5.80 HEMOGLOBIN (BEAKER) (test rzdc=039) 13.9 GM/DL 13.0-16.8 HEMATOCRIT (BEAKER) (test dczt=119) 41.5 % 40.0-50.0 MEAN CORPUSCULAR VOLUME (BEAKER) (test xekn=473) 93.3 fL 82.0-98.0 MEAN CORPUSCULAR HEMOGLOBIN (BEAKER) (test eply=114) 31.2 pg 27.0-33.0 MEAN CORPUSCULAR HEMOGLOBIN CONC (BEAKER) (test ucpn=743) 33.4 GM/DL 32.0- 36.0 RED CELL DISTRIBUTION WIDTH (BEAKER) (test tour=831) 12.7 % 10.3-14.2 PLATELET COUNT (BEAKER) (test kdzk=338) 114 K/CU MM 150-430 MEAN PLATELET VOLUME (BEAKER) (test esne=715) 8.9 fL 6.5-10.5 NUCLEATED RED BLOOD CELLS (BEAKER) (test iscv=887) 0 /100 WBC 0-0 NEUTROPHILS RELATIVE PERCENT (BEAKER) (test bery=265) 48 % LYMPHOCYTES RELATIVE PERCENT (BEAKER) (test mvgv=615) 34 % MONOCYTES RELATIVE PERCENT (BEAKER) (test gjye=207) 13 % EOSINOPHILS RELATIVE PERCENT (BEAKER) (test jrei=957) 5 % BASOPHILS RELATIVE PERCENT (BEAKER) (test xepv=740) 1 % NEUTROPHILS ABSOLUTE COUNT (BEAKER) (test azhx=747) 1.74 K/ L 1.80-8.00 LYMPHOCYTES ABSOLUTE COUNT (BEAKER) (test gbrq=695) 1.22 K/ L 1.48-4.50 MONOCYTES ABSOLUTE COUNT (BEAKER) (test hiwb=983) 0.45 K/ L 0.00-1.30 EOSINOPHILS ABSOLUTE COUNT (BEAKER) (test owwf=949) 0.17 K/ L 0.00-0.50 BASOPHILS ABSOLUTE COUNT (BEAKER) (test xqlu=869) 0.02 K/ L 0.00-0.20 0.00POCT-GLUCOSE [id number] 00:20:00* Test Item Value Reference Range Comments POC-GLUCOSE METER (BEAKER) (test bdkc=6319) 154 mg/dL 70-110 TESTED AT [address] [address] POCT-GLUCOSE [id number] 20:49:00* Test Item Value Reference Range Comments POC-GLUCOSE METER (BEAKER) (test cdlz=7187) 243 mg/dL 70-110 TESTED AT [address] [address] POCT-GLUCOSE [id number] 16:38:00* Test Item Value Reference Range Comments POC-GLUCOSE METER (BEAKER) (test xfil=5140) 151 mg/dL 70-110 TESTED AT [address] [address] ANTI-NUCLEAR ANTIBODY (MARIAELENA)2016-06-16 13:39:00* Test Item Value Reference Range Comments ANTI-NUCLEAR ANTIBODY (MARIAELENA) (BEAKER) (test bcdp=937) Negative Negative POCT-GLUCOSE [id number] 12:00:00* Test Item Value Reference Range Comments POC-GLUCOSE METER (BEAKER) (test vzen=3068) 163 mg/dL 70-110 TESTED AT [address] [address] HEMOGLOBIN [id number] 11:16:00* Test Item Value Reference Range Comments HEMOGLOBIN A1C (BEAKER) (test isao=339) 9.5 % 4.3-6.1 POCT-GLUCOSE [id number] 06:06:00* Test Item Value Reference Range Comments POC-GLUCOSE METER (BEAKER) (test bufx=9069) 151 mg/dL 70-110 TESTED AT [address] [address] CBC W/PLT COUNT & AUTO [id number] 06:06:00* Test Item Value Reference Range Comments WHITE BLOOD CELL COUNT (BEAKER) (test awmu=195) 3.1 K/ L 4.0-10.0 RED BLOOD CELL COUNT (BEAKER) (test yprf=456) 4.12 M/ L 4.20-5.80 HEMOGLOBIN (BEAKER) (test ysbl=295) 13.3 GM/DL 13.0-16.8 HEMATOCRIT (BEAKER) (test vwyr=984) 39.2 % 40.0-50.0 MEAN CORPUSCULAR VOLUME (BEAKER) (test ojuq=120) 95.2 fL 82.0-98.0 MEAN CORPUSCULAR HEMOGLOBIN (BEAKER) (test iqkb=353) 32.2 pg 27.0-33.0 MEAN CORPUSCULAR HEMOGLOBIN CONC (BEAKER) (test mose=750) 33.8 GM/DL 32.0- 36.0 RED CELL DISTRIBUTION WIDTH (BEAKER) (test opyz=497) 12.8 % 10.3-14.2 PLATELET COUNT (BEAKER) (test xrlv=832) 106 K/CU MM 150-430 MEAN PLATELET VOLUME (BEAKER) (test nzmm=066) 9.1 fL 6.5-10.5 NUCLEATED RED BLOOD CELLS (BEAKER) (test mgcc=311) 0 /100 WBC 0-0 NEUTROPHILS RELATIVE PERCENT (BEAKER) (test fhlt=802) 43 % LYMPHOCYTES RELATIVE PERCENT (BEAKER) (test byww=597) 39 % MONOCYTES RELATIVE PERCENT (BEAKER) (test jdqj=643) 14 % EOSINOPHILS RELATIVE PERCENT (BEAKER) (test dtqv=810) 4 % BASOPHILS RELATIVE PERCENT (BEAKER) (test ewsx=955) 1 % NEUTROPHILS ABSOLUTE COUNT (BEAKER) (test ukrt=315) 1.31 K/ L 1.80-8.00 LYMPHOCYTES ABSOLUTE COUNT (BEAKER) (test usqx=851) 1.19 K/ L 1.48-4.50 MONOCYTES ABSOLUTE COUNT (BEAKER) (test yrna=418) 0.41 K/ L 0.00-1.30 EOSINOPHILS ABSOLUTE COUNT (BEAKER) (test pwok=725) 0.12 K/ L 0.00-0.50 BASOPHILS ABSOLUTE COUNT (BEAKER) (test rhum=653) 0.02 K/ L 0.00-0.20 0.00CARCINOEMBRYONIC ANTIGEN (CEA)2016-06-16 05:40:00* Test Item Value Reference Range Comments CARCINOEMBRYONIC ANTIGEN (BEAKER) (test bybs=454) 1.5 ng/mL 0.0-5.0 [id number] 05:27:00* Test Item Value Reference Range Comments MAGNESIUM (BEAKER) (test pejh=531) 1.9 mg/dL 1.6-2.6 BASIC METABOLIC [id number] 05:27:00* Test Item Value Reference Range Comments SODIUM (BEAKER) (test gsnn=279) 140 meq/L 136-145 POTASSIUM (BEAKER) (test iiwn=452) 4.6 meq/L 3.5-5.1 CHLORIDE (BEAKER) (test vzjy=736) 106 meq/L 98-107 CO2 (BEAKER) (test qauv=345) 26 meq/L 22-29 BLOOD UREA NITROGEN (BEAKER) (test iimn=209) 16 mg/dL 7-21 CREATININE (BEAKER) (test hked=553) 1.01 mg/dL 0.57-1.25 GLUCOSE RANDOM (BEAKER) (test kazs=185) 148 mg/dL 70-105 CALCIUM (BEAKER) (test ypnq=244) 8.6 mg/dL 8.4-10.2 EGFR (BEAKER) (test lvmy=6865) 80 mL/min/1.73 sq m ESTIMATED GFR IS NOT ACCURATE CREATININE CLEARANCE IN PREDICTING GLOMERULAR FILTRATION RATE. ESTIMATED GFR IS NOT APPLICABLE FOR DIALYSIS PATIENTS. LIPID [id number] 05:27:00* Test Item Value Reference Range Comments TRIGLYCERIDES (BEAKER) (test nwyx=894) 372 mg/dL CHOLESTEROL (BEAKER) (test luho=772) 138 mg/dL HDL CHOLESTEROL (BEAKER) (test yhaj=999) 25 mg/dL LDL CHOLESTEROL CALCULATED (BEAKER) (test srxk=120) 39 mg/dL Triglyceride Reference Range: Low Risk <150 Borderline 150-199 High Risk 200-499 Very High Risk >=500Cholesterol Reference Range: Low Risk <200 Borderline 200-239 High Risk >240HDL Cholesterol Reference Range: Low Risk >=60 High Risk <40LDL Cholesterol Reference Range: Optimal <100 Near Optimal 100-129 Borderline 130-159 High 160-189 Very High >=190 HEPATIC FUNCTION [id number] 05:27:00* Test Item Value Reference Range Comments TOTAL PROTEIN (BEAKER) (test vkbg=682) 6.4 gm/dL 6.0-8.3 ALBUMIN (BEAKER) (test hfrh=7599) 3.6 g/dL 3.5-5.0 BILIRUBIN TOTAL (BEAKER) (test erge=234) 0.6 mg/dL 0.2-1.2 BILIRUBIN DIRECT (BEAKER) (test atal=970) 0.3 mg/dL 0.1-0.5 ALKALINE PHOSPHATASE (BEAKER) (test ipnc=218) 56 U/L 40-150 AST (SGOT) (BEAKER) (test zfaf=461) 24 U/L 5-34 ALT (SGPT) (BEAKER) (test edek=857) 28 U/L 6-55 [id number] 05:27:00* Test Item Value Reference Range Comments AMYLASE (BEAKER) (test mgwv=833) 46 U/L 25-125 [id number] 05:27:00* Test Item Value Reference Range Comments LIPASE (BEAKER) (test lxqb=031) 14 U/L 8-78 KETONE, [id number] 05:10:00* Test Item Value Reference Range Comments KETONES, BLOOD (BEAKER) (test ajjz=4652) 0.3 mmol/L <0.4 POCT-GLUCOSE [id number] 23:58:00* Test Item Value Reference Range Comments POC-GLUCOSE METER (BEAKER) (test ozgx=5004) 153 mg/dL 70-[address] [facility] [address] [facility] [address] POCT-GLUCOSE [id number] 19:53:00* Test Item Value Reference Range Comments POC-GLUCOSE METER (BEAKER) (test cpcn=8683) 167 mg/dL 70-[address] [facility] [address] [facility] [address] URINALYSIS W/ [id number] 15:33:00* Test Item Value Reference Range Comments COLOR (BEAKER) (test imlw=053) Yellow CLARITY (BEAKER) (test cwdn=500) Hazy SPECIFIC GRAVITY UA (BEAKER) (test fzay=320) 1.026 1.001-1.035 PH UA (BEAKER) (test pmud=881) 5.5 5.0-8.0 PROTEIN UA (BEAKER) (test xmrw=637) 200 mg/dL Negative GLUCOSE UA (BEAKER) (test agpl=042) 200 mg/dL Negative KETONES UA (BEAKER) (test yzxs=843) Negative Negative BILIRUBIN UA (BEAKER) (test allb=288) Positive Negative BLOOD UA (BEAKER) (test szyv=607) Negative Negative NITRITE UA (BEAKER) (test nzcx=485) Negative Negative LEUKOCYTE ESTERASE UA (BEAKER) (test huku=870) Negative Negative UROBILINOGEN UA (BEAKER) (test wjcr=453) 2.0 mg/dL 0.2-1.0 RBC UA (BEAKER) (test wpfg=079) 1 /HPF WBC UA (BEAKER) (test nzza=699) 5 /HPF MUCUS (BEAKER) (test cvrl=0716) Moderate SQUAMOUS EPITHELIAL (BEAKER) (test xwoo=583) 1 /HPF HYALINE CASTS (BEAKER) (test lyls=997) 15 /LPF SOURCE(BEAKER) (test znkg=0251) Urine, Voided POCT-GLUCOSE [id number] 13:08:00* Test Item Value Reference Range Comments POC-GLUCOSE METER (BEAKER) (test hkzr=9614) 156 mg/dL 70-[address] [facility] [address] [facility] [address] CBC W/PLT COUNT & AUTO [id number] 06:43:00* Test Item Value Reference Range Comments WHITE BLOOD CELL COUNT (BEAKER) (test tckm=057) 6.4 K/ L 4.0-10.0 RED BLOOD CELL COUNT (BEAKER) (test bgpl=489) 4.33 M/ L 4.20-5.80 HEMOGLOBIN (BEAKER) (test yxqx=032) 14.7 GM/DL 13.0-16.8 HEMATOCRIT (BEAKER) (test klnz=100) 40.8 % 40.0-50.0 MEAN CORPUSCULAR VOLUME (BEAKER) (test uqam=048) 94.4 fL 82.0-98.0 MEAN CORPUSCULAR HEMOGLOBIN (BEAKER) (test sjeb=325) 34.0 pg 27.0-33.0 MEAN CORPUSCULAR HEMOGLOBIN CONC (BEAKER) (test tkcm=620) 36.0 GM/DL 32.0- 36.0 RED CELL DISTRIBUTION WIDTH (BEAKER) (test zvxd=160) 13.0 % 10.3-14.2 PLATELET COUNT (BEAKER) (test ganr=967) 113 K/CU MM 150-430 MEAN PLATELET VOLUME (BEAKER) (test lxzc=497) 9.8 fL 6.5-10.5 NUCLEATED RED BLOOD CELLS (BEAKER) (test enpf=220) 0 /100 WBC 0-0 NEUTROPHILS RELATIVE PERCENT (BEAKER) (test fscr=875) 78 % LYMPHOCYTES RELATIVE PERCENT (BEAKER) (test bazt=091) 13 % MONOCYTES RELATIVE PERCENT (BEAKER) (test hlfn=755) 7 % EOSINOPHILS RELATIVE PERCENT (BEAKER) (test hwef=226) 2 % BASOPHILS RELATIVE PERCENT (BEAKER) (test gmag=563) 0 % NEUTROPHILS ABSOLUTE COUNT (BEAKER) (test vbwf=366) 5.00 K/ L 1.80-8.00 LYMPHOCYTES ABSOLUTE COUNT (BEAKER) (test wddh=012) 0.82 K/ L 1.48-4.50 MONOCYTES ABSOLUTE COUNT (BEAKER) (test pfxl=569) 0.46 K/ L 0.00-1.30 EOSINOPHILS ABSOLUTE COUNT (BEAKER) (test khfe=258) 0.12 K/ L 0.00-0.50 BASOPHILS ABSOLUTE COUNT (BEAKER) (test gmyp=111) 0.02 K/ L 0.00-0.20 [id number] 06:40:00* Test Item Value Reference Range Comments LIPASE (BEAKER) (test zqor=738) 11 U/L 8-78 BASIC METABOLIC [id number] 06:40:00* Test Item Value Reference Range Comments SODIUM (BEAKER) (test mbza=684) 139 meq/L 136-145 POTASSIUM (BEAKER) (test ujlz=037) 3.5 meq/L 3.5-5.1 Specimen slightly hemolyzed CHLORIDE (BEAKER) (test tacp=477) 104 meq/L 98-107 CO2 (BEAKER) (test hfht=057) 21 meq/L 22-29 BLOOD UREA NITROGEN (BEAKER) (test uzer=479) 19 mg/dL 7-21 CREATININE (BEAKER) (test ljwv=291) 1.21 mg/dL 0.57-1.25 Specimen slightly hemolyzed GLUCOSE RANDOM (BEAKER) (test ducv=128) 174 mg/dL 70-105 CALCIUM (BEAKER) (test uakn=858) 8.7 mg/dL 8.4-10.2 EGFR (BEAKER) (test qeob=2144) 65 mL/min/1.73 sq m ESTIMATED GFR IS NOT ACCURATE CREATININE CLEARANCE IN PREDICTING GLOMERULAR FILTRATION RATE. ESTIMATED GFR IS NOT APPLICABLE FOR DIALYSIS PATIENTS. HEPATIC FUNCTION [id number] 06:40:00* Test Item Value Reference Range Comments TOTAL PROTEIN (BEAKER) (test uzjx=783) 6.6 gm/dL 6.0-8.3 Specimen slightly hemolyzed ALBUMIN (BEAKER) (test zbsn=2585) 3.7 g/dL 3.5-5.0 Specimen slightly hemolyzed BILIRUBIN TOTAL (BEAKER) (test qzlo=565) 0.7 mg/dL 0.2-1.2 Specimen slightly hemolyzed BILIRUBIN DIRECT (BEAKER) (test itut=190) 0.2 mg/dL 0.1-0.5 Specimen slightly hemolyzed ALKALINE PHOSPHATASE (BEAKER) (test fpdr=824) 61 U/L 40-150 AST (SGOT) (BEAKER) (test mrpw=585) 17 U/L 5-34 Specimen slightly hemolyzed ALT (SGPT) (BEAKER) (test mlhv=758) 23 U/L 6-55 Specimen slightly hemolyzed POCT-GLUCOSE [id number] 06:03:00* Test Item Value Reference Range Comments POC-GLUCOSE METER (BEAKER) (test lhub=8059) 186 mg/dL 70-[address] [facility] [address] [facility] [address] TROPONIN [id number] 23:26:00* Test Item Value Reference Range Comments TROPONIN I (BEAKER) (test nosg=201) 0.02 ng/mL 0.00-0.03 Effective 02/05/2014: Reference Range ChangeNew: 0.00-0.03 Previous 0.00- 0.15Troponin I (TnI) levels must be interpreted in [...] failure, acidosis, acute neurological disease, and persistent tachyarrhythmia.[id number] 18: 34:00* Test Item Value Reference Range Comments LIPASE (BEAKER) (test kffs=937) 10 U/L 8-78 [id number] 18:34:00* Test Item Value Reference Range Comments AMYLASE (BEAKER) (test kqdr=590) 61 U/L 25-125 BASIC METABOLIC [id number] 18:34:00* Test Item Value Reference Range Comments SODIUM (BEAKER) (test ejhu=577) 141 meq/L 136-145 POTASSIUM (BEAKER) (test cmmd=182) 3.7 meq/L 3.5-5.1 CHLORIDE (BEAKER) (test xhyp=294) 103 meq/L 98-107 CO2 (BEAKER) (test azwv=077) 25 meq/L 22-29 BLOOD UREA NITROGEN (BEAKER) (test dnrp=591) 15 mg/dL 7-21 CREATININE (BEAKER) (test qehx=272) 1.20 mg/dL 0.57-1.25 GLUCOSE RANDOM (BEAKER) (test skag=672) 138 mg/dL 70-105 CALCIUM (BEAKER) (test yofe=492) 9.6 mg/dL 8.4-10.2 EGFR (BEAKER) (test dnrt=7046) 65 mL/min/1.73 sq m ESTIMATED GFR IS NOT ACCURATE CREATININE CLEARANCE IN PREDICTING GLOMERULAR FILTRATION RATE. ESTIMATED GFR IS NOT APPLICABLE FOR DIALYSIS PATIENTS. HEPATIC FUNCTION [id number] 18:34:00* Test Item Value Reference Range Comments TOTAL PROTEIN (BEAKER) (test lagf=456) 7.4 gm/dL 6.0-8.3 ALBUMIN (BEAKER) (test rqoo=0912) 4.2 g/dL 3.5-5.0 BILIRUBIN TOTAL (BEAKER) (test ebbh=560) 0.7 mg/dL 0.2-1.2 BILIRUBIN DIRECT (BEAKER) (test fxpc=807) 0.3 mg/dL 0.1-0.5 ALKALINE PHOSPHATASE (BEAKER) (test naqt=613) 75 U/L 40-150 AST (SGOT) (BEAKER) (test sunl=379) 19 U/L 5-34 ALT (SGPT) (BEAKER) (test wdaa=281) 27 U/L 6-55 CBC W/PLT COUNT & AUTO [id number] 18:22:00* Test Item Value Reference Range Comments WHITE BLOOD CELL COUNT (BEAKER) (test vufm=034) 10.5 K/ L 4.0-10.0 RED BLOOD CELL COUNT (BEAKER) (test tlcu=395) 4.92 M/ L 4.20-5.80 HEMOGLOBIN (BEAKER) (test hbtu=314) 16.0 GM/DL 13.0-16.8 HEMATOCRIT (BEAKER) (test esvs=655) 45.7 % 40.0-50.0 MEAN CORPUSCULAR VOLUME (BEAKER) (test nrgy=776) 93.0 fL 82.0-98.0 MEAN CORPUSCULAR HEMOGLOBIN (BEAKER) (test wlrw=903) 32.5 pg 27.0-33.0 MEAN CORPUSCULAR HEMOGLOBIN CONC (BEAKER) (test jsax=535) 35.0 GM/DL 32.0- 36.0 RED CELL DISTRIBUTION WIDTH (BEAKER) (test madl=762) 12.9 % 10.3-14.2 PLATELET COUNT (BEAKER) (test tlkc=810) 143 K/CU MM 150-430 MEAN PLATELET VOLUME (BEAKER) (test bncq=617) 9.3 fL 6.5-10.5 NUCLEATED RED BLOOD CELLS (BEAKER) (test lguj=295) 0 /100 WBC 0-0 NEUTROPHILS RELATIVE PERCENT (BEAKER) (test nzgn=293) 84 % LYMPHOCYTES RELATIVE PERCENT (BEAKER) (test sjlq=593) 9 % MONOCYTES RELATIVE PERCENT (BEAKER) (test duyw=129) 5 % EOSINOPHILS RELATIVE PERCENT (BEAKER) (test pwup=172) 1 % BASOPHILS RELATIVE PERCENT (BEAKER) (test ecee=136) 0 % NEUTROPHILS ABSOLUTE COUNT (BEAKER) (test lzvp=501) 8.86 K/ L 1.80-8.00 LYMPHOCYTES ABSOLUTE COUNT (BEAKER) (test sqyz=484) 0.97 K/ L 1.48-4.50 MONOCYTES ABSOLUTE COUNT (BEAKER) (test ajzq=779) 0.55 K/ L 0.00-1.30 EOSINOPHILS ABSOLUTE COUNT (BEAKER) (test wxmx=162) 0.15 K/ L 0.00-0.50 BASOPHILS ABSOLUTE COUNT (BEAKER) (test dgts=325) 0.00 K/ L 0.00-0.20 0.00POCT-GLUCOSE [id number] 13:39:00* Test Item Value Reference Range Comments POC-GLUCOSE METER (BEAKER) (test yltd=9130) 143 mg/dL 70-[address] [facility] [address] [facility] [address] POCT-GLUCOSE [id number] 08:01:00* Test Item Value Reference Range Comments POC-GLUCOSE METER (BEAKER) (test jyfd=5335) 168 mg/dL 70-110 TESTED AT [place] [id number] [facility] [address] BASIC METABOLIC [id number] 05:05:00* Test Item Value Reference Range Comments SODIUM (BEAKER) (test yrgz=153) 138 meq/L 136-145 POTASSIUM (BEAKER) (test brmi=482) 3.9 meq/L 3.5-5.1 CHLORIDE (BEAKER) (test bogs=930) 102 meq/L 98-107 CO2 (BEAKER) (test sluc=037) 26 meq/L 22-29 BLOOD UREA NITROGEN (BEAKER) (test wcre=877) 11 mg/dL 7-21 CREATININE (BEAKER) (test falg=506) 0.91 mg/dL 0.57-1.25 GLUCOSE RANDOM (BEAKER) (test fkds=636) 142 mg/dL 70-105 CALCIUM (BEAKER) (test ljfz=458) 8.6 mg/dL 8.4-10.2 EGFR (BEAKER) (test izjt=5284) 90 mL/min/1.73 sq m ESTIMATED GFR IS NOT ACCURATE CREATININE CLEARANCE IN PREDICTING GLOMERULAR FILTRATION RATE. ESTIMATED GFR IS NOT APPLICABLE FOR DIALYSIS PATIENTS. POCT-GLUCOSE [id number] 22:35:00* Test Item Value Reference Range Comments POC-GLUCOSE METER (BEAKER) (test knuy=0356) 132 mg/dL 70-110 TESTED AT [address] [address] POCT-GLUCOSE [id number] 15:02:00* Test Item Value Reference Range Comments POC-GLUCOSE METER (BEINDIA) (test rtwj=8032) 188 mg/dL 70-110 TESTED AT [address] [address] POCT-GLUCOSE [id number] 11:16:00* Test Item Value Reference Range Comments POC-GLUCOSE METER (BEINDIA) (test gkjt=6704) 233 mg/dL 70-110 TESTED AT [address] [address] (MANUAL DIFFERENTIAL)2016-06-03 09:01:00* Test Item Value Reference Range Comments NEUTROPHILS - REL (DIFF) (BEAKER) (test swez=5203) 60 % LYMPHOCYTES - REL (DIFF) (BEAKER) (test sqch=2161) 30 % MONOCYTES - REL (DIFF) (BEAKER) (test nqgk=7922) 7 % EOSINOPHILS - REL (DIFF) (BEAKER) (test tgvj=3763) 3 % NEUTROPHILS - ABS (DIFF) (BEAKER) (test dsid=0121) 3.00 K/ L 1.80-8.00 LYMPHOCYTES - ABS (DIFF) (BEAKER) (test ojkw=9702) 1.50 K/ L 1.48-4.50 MONOCYTES - ABS (DIFF) (BEAKER) (test wonq=0761) 0.35 K/ L 0.00-1.30 EOSINOPHILS - ABS (DIFF) (BEAKER) (test cany=3188) 0.15 K/ L 0.00-0.50 TOTAL COUNTED (BEAKER) (test xtfz=1693) 100 PLT MORPHOLOGY (BEAKER) (test bsal=912) Normal RBC MORPHOLOGY (BEAKER) (test goex=391) Normal ATYPICAL LYMPHS(BEAKER) (test iyfo=0066) Present POCT-GLUCOSE [id number] 08:40:00* Test Item Value Reference Range Comments POC-GLUCOSE METER (BEAKER) (test otvu=8652) 228 mg/dL 70-[address] [facility] [address] [facility] [address] [id number] 05:48:00* Test Item Value Reference Range Comments LIPASE (BEAKER) (test sfxv=785) 19 U/L 8-78 [id number] 05:48:00* Test Item Value Reference Range Comments AMYLASE (BEAKER) (test xbug=995) 52 U/L 25-125 COMPREHENSIVE METABOLIC [id number] 05:48:00* Test Item Value Reference Range Comments TOTAL PROTEIN (BEAKER) (test ezvn=236) 6.4 gm/dL 6.0-8.3 ALBUMIN (BEAKER) (test ahkw=1545) 3.6 g/dL 3.5-5.0 ALKALINE PHOSPHATASE (BEAKER) (test bcxw=906) 86 U/L 40-150 BILIRUBIN TOTAL (BEAKER) (test cftz=363) 0.5 mg/dL 0.2-1.2 SODIUM (BEAKER) (test brvo=444) 140 meq/L 136-145 POTASSIUM (BEAKER) (test yfjy=097) 3.4 meq/L 3.5-5.1 CHLORIDE (BEAKER) (test cmui=515) 104 meq/L 98-107 CO2 (BEAKER) (test cctg=056) 24 meq/L 22-29 BLOOD UREA NITROGEN (BEAKER) (test erpy=224) 16 mg/dL 7-21 CREATININE (BEAKER) (test jnqe=251) 0.94 mg/dL 0.57-1.25 GLUCOSE RANDOM (BEAKER) (test xkfz=903) 231 mg/dL 70-105 CALCIUM (BEAKER) (test nqnv=753) 8.4 mg/dL 8.4-10.2 AST (SGOT) (BEAKER) (test wjmi=702) 14 U/L 5-34 ALT (SGPT) (BEAKER) (test wiua=088) 18 U/L 6-55 EGFR (BEAKER) (test kyyv=7346) 87 mL/min/1.73 sq m ESTIMATED GFR IS NOT ACCURATE CREATININE CLEARANCE IN PREDICTING GLOMERULAR FILTRATION RATE. ESTIMATED GFR IS NOT APPLICABLE FOR DIALYSIS PATIENTS. CBC W/PLT COUNT & AUTO [id number] 05:46:00* Test Item Value Reference Range Comments WHITE BLOOD CELL COUNT (BEAKER) (test hfau=710) 5.0 K/ L 4.0-10.0 RED BLOOD CELL COUNT (BEAKER) (test dwwi=174) 4.39 M/ L 4.20-5.80 HEMOGLOBIN (BEAKER) (test ojig=981) 13.0 GM/DL 13.0-16.8 HEMATOCRIT (BEAKER) (test nujp=720) 40.0 % 40.0-50.0 MEAN CORPUSCULAR VOLUME (BEAKER) (test wwig=050) 91.2 fL 82.0-98.0 MEAN CORPUSCULAR HEMOGLOBIN (BEAKER) (test egmj=777) 29.6 pg 27.0-33.0 MEAN CORPUSCULAR HEMOGLOBIN CONC (BEAKER) (test iiyx=639) 32.4 GM/DL 32.0- 36.0 RED CELL DISTRIBUTION WIDTH (BEAKER) (test kuyy=092) 12.8 % 10.3-14.2 PLATELET COUNT (BEAKER) (test jzij=357) 128 K/CU MM 150-430 MEAN PLATELET VOLUME (BEAKER) (test gcwj=013) 9.6 fL 6.5-10.5 NUCLEATED RED BLOOD CELLS (BEAKER) (test lgrw=983) 0 /100 WBC 0-0 0.00POCT-GLUCOSE [id number] 00:09:00* Test Item Value Reference Range Comments POC-GLUCOSE METER (BEAKER) (test envn=0996) 266 mg/dL 70-[address] [facility] [address] [facility] [address] URINALYSIS W/ [id number] 20:24:00* Test Item Value Reference Range Comments COLOR (BEAKER) (test asmo=354) Light Yellow CLARITY (BEAKER) (test cpcv=872) Clear SPECIFIC GRAVITY UA (BEAKER) (test cwqm=194) 1.027 1.001-1.035 PH UA (BEAKER) (test modc=108) 6.0 5.0-8.0 PROTEIN UA (BEAKER) (test arou=485) 20 mg/dL Negative GLUCOSE UA (BEAKER) (test fugk=751) >1000 mg/dL Negative KETONES UA (BEAKER) (test rsxi=789) Negative Negative BILIRUBIN UA (BEAKER) (test yemv=489) Negative Negative BLOOD UA (BEAKER) (test qopm=939) Negative Negative NITRITE UA (BEAKER) (test aeln=804) Negative Negative LEUKOCYTE ESTERASE UA (BEAKER) (test zabg=879) Negative Negative UROBILINOGEN UA (BEAKER) (test bvfd=177) 0.2 mg/dL 0.2-1.0 RBC UA (BEAKER) (test dbkd=184) < /HPF WBC UA (BEAKER) (test jvsa=026) 1 /HPF SQUAMOUS EPITHELIAL (BEAKER) (test nppx=112) < /HPF SOURCE(BEAKER) (test zrrv=1151) Urine, Clean Catch BASIC METABOLIC [id number] 18:51:00* Test Item Value Reference Range Comments SODIUM (BEAKER) (test oaor=986) 134 meq/L 136-145 POTASSIUM (BEAKER) (test nung=967) 3.4 meq/L 3.5-5.1 Specimen slightly hemolyzed CHLORIDE (BEAKER) (test sinh=245) 98 meq/L 98-107 CO2 (BEAKER) (test glrr=798) 21 meq/L 22-29 BLOOD UREA NITROGEN (BEAKER) (test kzmb=227) 20 mg/dL 7-21 CREATININE (BEAKER) (test dasb=176) 1.25 mg/dL 0.57-1.25 Specimen slightly hemolyzed GLUCOSE RANDOM (BEAKER) (test baky=724) 501 mg/dL 70-105 CALCIUM (BEAKER) (test qjml=389) 9.3 mg/dL 8.4-10.2 EGFR (BEAKER) (test vvaw=6021) 62 mL/min/1.73 sq m ESTIMATED GFR IS NOT ACCURATE CREATININE CLEARANCE IN PREDICTING GLOMERULAR FILTRATION RATE. ESTIMATED GFR IS NOT APPLICABLE FOR DIALYSIS PATIENTS. HEPATIC FUNCTION [id number] 18:49:00* Test Item Value Reference Range Comments TOTAL PROTEIN (BEAKER) (test lgmy=328) 7.4 gm/dL 6.0-8.3 Specimen slightly hemolyzed ALBUMIN (BEAKER) (test sdno=5020) 3.9 g/dL 3.5-5.0 Specimen slightly hemolyzed BILIRUBIN TOTAL (BEAKER) (test djso=986) 0.3 mg/dL 0.2-1.2 Specimen slightly hemolyzed BILIRUBIN DIRECT (BEAKER) (test evsw=369) < mg/dL 0.1-0.5 Specimen slightly hemolyzed ALKALINE PHOSPHATASE (BEAKER) (test tcpa=293) 140 U/L 40-150 AST (SGOT) (BEAKER) (test muyd=427) 14 U/L 5-34 Specimen slightly hemolyzed ALT (SGPT) (BEAKER) (test orkp=962) 19 U/L 6-55 Specimen slightly hemolyzed Specimen markedly [id number] 18:39:00* Test Item Value Reference Range Comments LIPASE (BEAKER) (test siwt=414) 38 U/L 8-78 [id number] 18:39:00* Test Item Value Reference Range Comments AMYLASE (BEAKER) (test abyp=717) 57 U/L 25-125 Specimen slightly hemolyzed CBC W/PLT COUNT & AUTO [id number] 18:20:00* Test Item Value Reference Range Comments WHITE BLOOD CELL COUNT (BEAKER) (test tijq=311) 4.8 K/ L 4.0-10.0 RED BLOOD CELL COUNT (BEAKER) (test afvh=932) 4.19 M/ L 4.20-5.80 HEMOGLOBIN (BEAKER) (test wmdn=360) 14.0 GM/DL 13.0-16.8 HEMATOCRIT (BEAKER) (test etfv=514) 37.8 % 40.0-50.0 MEAN CORPUSCULAR VOLUME (BEAKER) (test exti=447) 90.2 fL 82.0-98.0 MEAN CORPUSCULAR HEMOGLOBIN (BEAKER) (test khif=166) 33.3 pg 27.0-33.0 MEAN CORPUSCULAR HEMOGLOBIN CONC (BEAKER) (test nsgf=798) 36.9 GM/DL 32.0- 36.0 RED CELL DISTRIBUTION WIDTH (BEAKER) (test imok=959) 12.7 % 10.3-14.2 PLATELET COUNT (BEAKER) (test ouau=758) 131 K/CU MM 150-430 MEAN PLATELET VOLUME (BEAKER) (test nebh=818) 9.7 fL 6.5-10.5 NUCLEATED RED BLOOD CELLS (BEAKER) (test nrdq=291) 0 /100 WBC 0-0 NEUTROPHILS RELATIVE PERCENT (BEAKER) (test svva=684) 55 % LYMPHOCYTES RELATIVE PERCENT (BEAKER) (test niic=758) 36 % MONOCYTES RELATIVE PERCENT (BEAKER) (test yjwg=793) 7 % EOSINOPHILS RELATIVE PERCENT (BEAKER) (test nrxy=584) 2 % BASOPHILS RELATIVE PERCENT (BEAKER) (test egoy=212) 1 % NEUTROPHILS ABSOLUTE COUNT (BEAKER) (test baqi=459) 2.65 K/ L 1.80-8.00 LYMPHOCYTES ABSOLUTE COUNT (BEAKER) (test sphi=087) 1.73 K/ L 1.48-4.50 MONOCYTES ABSOLUTE COUNT (BEAKER) (test vhxp=027) 0.33 K/ L 0.00-1.30 EOSINOPHILS ABSOLUTE COUNT (BEAKER) (test bfqj=662) 0.11 K/ L 0.00-0.50 BASOPHILS ABSOLUTE COUNT (BEAKER) (test qldr=857) 0.03 K/ L 0.00-0.20 0.00POCT-GLUCOSE [id number] 18:02:00* Test Item Value Reference Range Comments POC-GLUCOSE METER (BEAKER) (test rsvb=4581) 442 mg/dL 70-110 Notified JENNY RESENDEZ/ TESTED AT [address] [address] HEPATIC FUNCTION [id number] 17:17:00* Test Item Value Reference Range Comments TOTAL PROTEIN (BEAKER) (test csyf=863) 7.8 gm/dL 6.0-8.3 Specimen moderately hemolyzed ALBUMIN (BEAKER) (test ihua=3695) 4.0 g/dL 3.5-5.0 Specimen moderately hemolyzed BILIRUBIN TOTAL (BEAKER) (test yftd=871) 0.4 mg/dL 0.2-1.2 Specimen moderately hemolyzed BILIRUBIN DIRECT (BEAKER) (test yxox=463) < mg/dL 0.1-0.5 Specimen moderately hemolyzed ALKALINE PHOSPHATASE (BEAKER) (test ifov=476) 84 U/L 40-150 AST (SGOT) (BEAKER) (test ecju=763) 25 U/L 5-34 Specimen moderately hemolyzed ALT (SGPT) (BEAKER) (test ffqu=040) 35 U/L 6-55 Specimen moderately hemolyzed Specimen markedly [id number] 17:12:00* Test Item Value Reference Range Comments LIPASE (BEAKER) (test nycw=801) 38 U/L 8-78 [id number] 17:12:00* Test Item Value Reference Range Comments AMYLASE (BEAKER) (test krjm=930) 59 U/L 25-125 Specimen moderately hemolyzed BASIC METABOLIC [id number] 17:12:00* Test Item Value Reference Range Comments SODIUM (BEAKER) (test oeuf=277) 134 meq/L 136-145 POTASSIUM (BEAKER) (test fpdf=483) 3.6 meq/L 3.5-5.1 Specimen moderately hemolyzed CHLORIDE (BEAKER) (test riqm=069) 100 meq/L 98-107 CO2 (BEAKER) (test edkd=189) 16 meq/L 22-29 BLOOD UREA NITROGEN (BEAKER) (test feth=530) 17 mg/dL 7-21 CREATININE (BEAKER) (test cdgv=603) 1.37 mg/dL 0.57-1.25 Specimen moderately hemolyzed GLUCOSE RANDOM (BEAKER) (test iwph=308) 358 mg/dL 70-105 CALCIUM (BEAKER) (test lkoy=684) 9.4 mg/dL 8.4-10.2 EGFR (BEAKER) (test rvig=0497) 56 mL/min/1.73 sq m ESTIMATED GFR IS NOT ACCURATE CREATININE CLEARANCE IN PREDICTING GLOMERULAR FILTRATION RATE. ESTIMATED GFR IS NOT APPLICABLE FOR DIALYSIS PATIENTS. CBC W/PLT COUNT & AUTO [id number] 16:47:00* Test Item Value Reference Range Comments WHITE BLOOD CELL COUNT (BEAKER) (test ybtg=470) 5.9 K/ L 4.0-10.0 RED BLOOD CELL COUNT (BEAKER) (test ptql=142) 4.46 M/ L 4.20-5.80 HEMOGLOBIN (BEAKER) (test etfs=796) 15.0 GM/DL 13.0-16.8 HEMATOCRIT (BEAKER) (test ajav=573) 39.6 % 40.0-50.0 MEAN CORPUSCULAR VOLUME (BEAKER) (test ivtj=902) 88.7 fL 82.0-98.0 MEAN CORPUSCULAR HEMOGLOBIN (BEAKER) (test bgxr=420) 33.7 pg 27.0-33.0 MEAN CORPUSCULAR HEMOGLOBIN CONC (BEAKER) (test jhwo=099) 38.0 GM/DL 32.0- 36.0 RED CELL DISTRIBUTION WIDTH (BEAKER) (test mobm=159) 12.4 % 10.3-14.2 PLATELET COUNT (BEAKER) (test izzm=127) 158 K/CU MM 150-430 MEAN PLATELET VOLUME (BEAKER) (test jwly=223) 9.3 fL 6.5-10.5 NUCLEATED RED BLOOD CELLS (BEAKER) (test uarq=029) 0 /100 WBC 0-0 NEUTROPHILS RELATIVE PERCENT (BEAKER) (test nvrn=445) 59 % LYMPHOCYTES RELATIVE PERCENT (BEAKER) (test bith=381) 30 % MONOCYTES RELATIVE PERCENT (BEAKER) (test iwol=967) 8 % EOSINOPHILS RELATIVE PERCENT (BEAKER) (test ckwg=829) 3 % BASOPHILS RELATIVE PERCENT (BEAKER) (test slsn=400) 1 % NEUTROPHILS ABSOLUTE COUNT (BEAKER) (test vtwa=050) 3.45 K/ L 1.80-8.00 LYMPHOCYTES ABSOLUTE COUNT (BEAKER) (test umlz=038) 1.74 K/ L 1.48-4.50 MONOCYTES ABSOLUTE COUNT (BEAKER) (test wqmh=445) 0.46 K/ L 0.00-1.30 EOSINOPHILS ABSOLUTE COUNT (BEAKER) (test qmwr=613) 0.19 K/ L 0.00-0.50 BASOPHILS ABSOLUTE COUNT (BEAKER) (test nfwx=449) 0.03 K/ L 0.00-0.20 0.00US TESTICULAR [place] [address] Patient Name: DC BARNHART MR #: [id number] : 1970 Age/Sex: 46/M Req #: [id number] Adm Physician: Ordered by: JASVIR BUENO MD Report #: [id number] Location: Room/Bed: Procedure: [id number] US/US TESTICULAR Exam Date: 03/04/17 Exam Time: 2132 REPORT STATUS: Signed Exam: US TESTICULAR DOPPLER LTD, US TESTICULAR Clinical History: S SWELLING PAIN L TESTICLE S N Technique: Sonographic evaluation of the testicles using grayscale and color Doppler. Findings. Both testes are normal in echogenicity and size without intratesticular mass. The right testes measures 5.0 x 2.7 x 3.5 cm and the left testes measures 4.7 x 3.1 x 4.2 cm. Arterial and venous flow is documented to bilateral testicles. There is asymmetrically increased flow to the left testicle when compared to the right. Small left hydrocele with minimal internal echoes suggesting some degree of complexity. No varicocele. Both epididymides are normal in appearance, the left slightly larger than the right but without increased vascularity visible. Impression: 1. Left orchitis. Associated small minimally complex hydrocele. 2. No evidence of torsion. Signed by: Dr Bruce Maravilla MD on 2016 10:21 PM Dictated By: BRUCE MARAVILLA MD 20 Transcribed By: SOSA on 03/04/172220 COPY TO: JASVIR BUENO MD US TESTICULAR DOPPLER LTD [place] [address] Patient Name: DC BARNHART MR #: [id number] : 1970 Age/Sex: 46/M Req #: [id number] Adm Physician: Ordered by: JASVIR BUENO MD Report #: [id number] Location: ER Room/Bed: Procedure: [id number] US/US TESTICULAR DOPPLER LTD Exam Date: 03/04/17 Exam Time: 2132 REPORT STATUS: Signed Exam: US TESTICULAR DOPPLER LTD, US TESTICULAR Clinical History: S SWELLING PAIN L TESTICLE S N Technique: Sonographic evaluation of the testicles using grayscale and color Doppler. Findings. Both testes are normal in echogenicity and size without intratesticular mass. The right testes measures 5.0 x 2.7 x 3.5 cm and the left testes measures 4.7 x 3.1 x 4.2 cm. Arterial and venous flow is documented to bilateral testicles. There is asymmetrically increased flow to the left testicle when compared to the right. Small left hydrocele with minimal internal echoes suggesting some degree of complexity. No varicocele. Both epididymides are normal in appearance, the left slightly larger than the right but without increased vascularity visible. Impression: 1. Left orchitis. Associated small minimally complex hydrocele. 2. No evidence of torsion. Signed by: Dr Bruce Maravilla MD on 03/04/2017 10:21 PM Dictated By: BRUCE MARAVILLA MD 20 Transcribed By: SOSA on 03/04/172220 COPY TO: JASVIR BUENO MD CHEST [facility] (PORTABLE) [place] [id number] Patient Name: DC BARNHART MR #: [id number] : 1970 Age/Sex: 46/M Req #: [id number] Adm Physician: Ordered by: RONI MALONE [employer] Report #: [id number] Location: ER Room/Bed: ___ Procedure: [id number] DX/CHEST SINGLE (PORTABLE) Exam Date: 12/02/16 Exam Time: 1145 REPORT STATUS: Signed PROCEDURE : A single AP view of the chest. COMPARISON: None. INDICATIONS: CHEST PAIN FINDINGS: Lines/tubes: None. Lungs: Limited evaluation of the lungs due to AP portable technique. Lung volumes are low. No focal consolidation. No pulmonary edema. Pleura: There is no pleural effusion or pneumothorax. Heart and mediastinum: The heart and the mediastinum are unremarkable. Bones: No acute bony abnormality. IMPRESSION: No evidence of infection or edema. Dictated by: Satinder Alaniz M.D. on 12/02/2016 at 12:17 Electronically approved by: Satinder Alaniz M.D. on 12/02/2016 at 12:17 Dictated By: SATINDER ALANIZ MD [id number] Transcribed By: NICOLE on 12/02/167 COPY TO: RONI MALONE NP
[2017-06-20] MEDS ORDERED: KETOROLAC TROMETHAMINE 30 MG/ML VIAL IV STA (11:56)
[2017-06-20] MEDS ORDERED: ASPIRIN 81 MG CHEW TAB PO ONE (12:00)
--- NOTE | 2017-06-20 12:43 | Diagnostic Imaging Report ---
PROCEDURE: A single AP view of the chest. COMPARISON: Patients [facility], , CHEST SINGLE (PORTABLE), 12/02/2016, 11:55. INDICATIONS: CHEST PAIN-MID TO RIGHT SIDE. COUGH FINDINGS: Lines/tubes: None. Lungs: The lungs are well inflated and clear. There is no evidence of pneumonia or pulmonary edema. Pleura: There is no pleural effusion or pneumothorax. Heart and mediastinum: The cardiac silhouette is borderline enlarged. Bones: No acute bony abnormality. IMPRESSION: 1. Borderline cardiomegaly. No acute decompensation. Analia Veronica M.D. Dictated by: Analia Veronica M.D. on 06/20/2017 at 12:44 Electronically approved by: Analia Veronica M.D. on 06/20/2017 at 12:44
[2017-06-20] MEDS ORDERED: HYDROCODONE/APAP 10MG-325MG TAB PO STA (14:40)
[2017-06-20 14:41] LABS: BASOPHILS % 0.5 % (0.0-1.0); EOSINOPHILS # (AUTO) 0.1 (0.0-0.4); EOSINOPHILS % 1.9 % (0.0-6.0); HEMATOCRIT 43.2 % (38.2-49.6); HEMOGLOBIN 15.6 g/dL (14.0-18.0); LYMPHOCYTES # (AUTO) 1.5 (1.0-3.2); LYMPHOCYTES % 34.4 % (18.0-39.1); MEAN CORPUSCULAR HEMOGLOBIN 31.3 pg (28-32); MEAN CORPUSCULAR HGB CONC 36.1 g/dL (31-35); MEAN CORPUSCULAR VOLUME 86.7 fL (81-99); MONOCYTES # (AUTO) 0.4 (0.2-0.8); MONOCYTES % 8.7 % (4.4-11.3); NEUTROPHILS # (AUTO) 2.3 (2.1-6.9); PLATELET COUNT 138 x10e3/uL (140-360); RED BLOOD COUNT 4.98 x10e6/uL (4.3-5.7); RED CELL DISTRIBUTION WIDTH 13.2 % (11.7-14.4)
[2017-06-20 14:50] LABS: CLARITY,URINE SL CLOUDY (CLEAR); COLOR,URINE YELLOW (YELLOW)
[2017-06-20 14:51] LABS: BILIRUBIN,URINE NEGATIVE (NEGATIVE); KETONES,URINE NEGATIVE (NEGATIVE); LEUKOCYTE ESTERASE ,URINE NEGATIVE (NEGATIVE); NITRITE,URINE NEGATIVE (NEGATIVE); PROTEIN,URINE DIPSTICK 1+ (NEGATIVE); URINE UROBILINOGEN 1 mg/dL (0.2 - 1)
[2017-06-20 14:54] LABS: INR 1.22; PROTHROMBIN TIME 14.5 seconds (11.9-14.5)
[2017-06-20 14:55] LABS: PARTIAL THROMBOPLASTIN TIME 24.2 seconds (23.8-35.5)
[2017-06-20 14:59] LABS: ALBUMIN 3.6 g/dL (3.5-5.0); ANION GAP 14.8 mmol/L (8-16); CALCIUM 9.4 mg/dL (8.4-10.2); CREATININE, SERUM 1.31 mg/dL (0.72-1.25); POTASSIUM 3.8 mmol/L (3.5-5.1)
[2017-06-20 15:00] LABS: MUCUS,URINE MODERATE (RARE)
[2017-06-20] MEDS ORDERED: MORPHINE SULFATE 2 MG/ML SYR IM STA (15:12)
[2017-06-20 15:19] LABS: CREATINE KINASE MB 2.3 ng/mL (0-5.0); THYROID STIMULATING HORMONE 2.03 uIU/mL (0.350-4.940)
[2017-06-20 16:06] VITALS: BP 123/81
== END 2017-06-20 16:31 | disposition home or self-care (01) ==
LOC: ER 11:38
DX: R07.89 Other chest pain (principal); E66.9 Obesity, unspecified; F32.9 Major depressive disorder, single episode, unspecified; L30.9 Dermatitis, unspecified; Z85.72 Personal history of non-Hodgkin lymphomas
CPT/HCPCS: 36415; 71045; 80053; 81001; 82550; 82553; 83880; 84443; 84484; 85025; 85610; 85730; 93005; 99284; J1885; J2270

== ENCOUNTER 2017-08-22 14:00 | Observation (INO) | payer BC ==
[~2017-08-22] VITALS: Ht 196.8 cm; Wt 177.4 kg
--- OUTSIDE RECORDS SUMMARY | 2017-08-22 14:03 | XMS REPORT | Clinical Summary ---
Author Author CATALINA [facility] Address Unknown Phone Unavailable Care Team Providers Care Records Supervisor Name Role Phone PCP Unavailable Allergies Active Allergy Reactions Severity Noted Date Comments Sulfamethoxazole-Trimetho Itching High 10/16/2012 prim Current Medications Prescription Sig. Disp. Refills Start End Date Status Date clotrimazole-betamethason Apply to affected area 05/27/19 Active e (LOTRISONE) 1-0.05 % daily PRN rash. 16 cream pantoprazole (PROTONIX) Take 40 mg by mouth 12/23/19 Active 40 MG tablet daily. 16 albuterol HFA (VENTOLIN Inhale 2 puffs by mouth 06/12/19 Active HFA) 90 mcg/actuation via inhaler. 15 inhaler levothyroxine (SYNTHROID, TAKE 1 TABLET BY MOUTH 02/24/20 Active LEVOTHROID) 100 MCG DAILY. 16 tablet sertraline (ZOLOFT) 25 MG TAKE 1 TABLET [...] 100 each 0 04/23/19 Active Insulin Pen [place] 4 mm as written, do not 17 x 32 G substitute. Brand medically necessary.. baclofen (LIORESAL) 10 MG Take 10 mg by mouth every Active tablet night as needed. spironolactone Take 25 mg by mouth Active (ALDACTONE) 25 MG tablet daily. valsartan-hydrochlorothia Take 1 tablet by mouth Active zide (DIOVAN-HCT) 320-25 daily. mg per tablet carvedilol (COREG) 25 MG Take 25 mg by mouth 2 Active tablet (two) times daily with breakfast and dinner. ketoconazole (NIZORAL) 2 Apply topically 2 (two) 30 g 0 07/03/19 Active % cream times daily as needed. 18 meloxicam (MOBIC) 15 MG Take 15 mg by mouth daily 05/28/19 Active tablet as needed for Pain . 18 INSULIN LISPRO Inject 80 Units 05/27/19 Active PROTAMIN/LISPRO (HUMALOG subcutaneously 3 (three) 18 MIX 75-25 KWIKPEN SUBQ) times daily before meals . fenofibrate Take 160 mg by mouth 07/05/19 Active (TRIGLIDE,LOFIBRA) 160 MG daily . 18 tablet JARDIANCE 25 mg tablet Take 25 mg by mouth daily 07/05/19 Active . 18 amLODIPine (NORVASC) 10 Take 10 mg by mouth 3 07/30/19 Active MG tablet daily. 18 fexofenadine (JUANA) TAKE 1 TABLET BY MOUTH 08/16/19 Active 180 MG tablet DAILY 15 nitroglycerin (NITROSTAT) PLACE 1 PILL UNDER TONGUE 06/06/19 Active 0.3 MG SL tablet EVERY 5 MINUTES NEEDED 18 IF PAIN PERSISTS GREATER THAN 15 MINS., CALL 911 HYDROcodone-acetaminophen Take 1 tablet by mouth 04/29/19 Active (NORCO 10-325) 10-325 mg every 6 (six) hours as 18 per tablet needed for Pain . cyclobenzaprine Take 1 tablet (10 mg 20 tablet 0 08/18/19 08/28/19 Active (FLEXERIL) 10 MG tablet total) by mouth 2 (two) 18 18 times daily as needed for Muscle spasms for up to 10 days. acetaminophen-codeine Take 1-2 tablets by mouth 20 tablet 0 08/18/19 08/28/19 Active (TYLENOL #3) 300-30 mg every 6 (six) hours as 18 18 per tablet needed for up to 10 days. Max Daily Amount: 8 tablets atorvastatin (LIPITOR) 40 Take 40 mg by mouth daily 07/18/19 08/18/19 Discontin MG tablet . 16 18 ued clopidogrel (PLAVIX) 75 Take 75 mg by mouth daily 12/11/19 08/18/19 Discontin mg tablet . 15 18 ued methocarbamol Take 500 mg by mouth. 07/01/19 Discontin (ROBAXIN-750) 750 MG 18 ued tablet butalbital-acetaminophen- Take 1 tablet by mouth. 01/12/20 08/18/19 Discontin caffeine (FIORICET, 16 18 ued ESGIC) 50-325-40 mg per tablet mometasone (NASONEX) 50 Inhale 2 sprays by mouth 12/29/19 08/18/19 Discontin mcg/actuation nasal spray via inhaler. 16 18 ued HYDROmorphone (DILAUDID) Take 2 mg by mouth every 07/01/19 Discontin 2 MG tablet 6 (six) hours as needed 18 ued for Pain. amLODIPine (NORVASC) 10 Take 1 tablet (10 mg 30 tablet 11 07/01/19 07/02/19 Discontin MG tablet total) by mouth daily. 17 18 ued carvedilol (COREG) 6.25 Take 1 tablet (6.25 mg 60 tablet 07/01/19 07/02/19 Discontin MG tablet total) by mouth 2 (two) 17 18 ued times daily with breakfast and dinner. insulin lispro Inject 0.8 mLs (80 Units 0 07/01/19 07/03/19 Discontin protamin-lispro (HUMALOG total) subcutaneously 3 17 18 ued 75-25) 100 unit/mL (three) times daily (75-25) InPn injection before meals Start at 5 units then increase as you eat better at home. amitriptyline (ELAVIL) 10 Take 1 tablet (10 mg 30 tablet 07/01/19 07/01/19 Discontin MG tablet total) by mouth nightly. 17 18 ued fenofibrate (TRICOR) 48 Take 1 tablet (48 mg 30 tablet 07/01/19 07/02/19 Discontin MG tablet total) by mouth daily. 17 18 ued lisinopril Take 1 tablet (40 mg 30 tablet 07/01/19 07/01/19 Discontin (PRINIVIL,ZESTRIL) 40 MG total) by mouth daily. 17 18 ued tablet ondansetron (ZOFRAN) 4 MG Take 1 tablet (4 mg 30 tablet 3 07/01/19 07/01/19 Discontin tablet total) by mouth 3 (three) 17 18 ued times daily as needed for Nausea. predniSONE (DELTASONE) 20 Take 1 tablet (20 mg 10 tablet 0 08/26/19 08/31/19 MG tablet total) by mouth 2 (two) 17 17 times daily for 5 days. ibuprofen (ADVIL,MOTRIN) Take 1 tablet (600 mg 20 tablet 0 08/25/19 07/01/19 Discontin 600 MG tablet total) by mouth every 6 17 18 ued (six) hours as needed for Pain for up to 20 doses. cloNIDine HCl (CATAPRES) Take 1 tablet (0.2 mg 15 tablet 0 08/25/19 07/01/19 Discontin 0.2 MG tablet total) by mouth 3 (three) 17 18 ued times daily as needed (TAKE IF SYSTOLIC>180 OR IF DIASTOLIC>100) for up to 15 doses. carisoprodol (SOMA) 350 Take 1 tablet (350 mg 15 tablet 0 09/07/19 09/17/19 MG tablet total) by mouth 3 (three) 17 17 times daily for 10 days. Max Daily Amount: 1,050 mg methylPREDNISolone Take the steroid pack as 1 Package 0 09/07/1903/09 Discontin (MEDROL DOSEPACK) 4 mg package instructs. 17 18 ued tablet traMADol (ULTRAM) 50 mg Take 1 tablet (50 mg 20 tablet 0 09/12/19 tablet total) by mouth 2 (two) 17 17 times daily as needed for Pain for up to 10 days. Max Daily Amount: 100 mg acetaminophen-codeine Take 1 tablet by mouth 3 15 tablet 0 10/21/19 07/01/19 Discontin (TYLENOL #3) 300-30 mg (three) times daily as 17 18 ued per tablet needed for Pain. Max Daily Amount: 3 tablets amoxicillin-clavulanate Take 1 tablet by mouth 14 tablet 0 10/21/19 10/28/19 (AUGMENTIN) 875-125 mg every 12 (twelve) hours 17 17 per tablet for 7 days. bacitracin 500 unit/gram Apply topically 2 (two) 120 g 0 10/21/19 Discontin ointment times daily. 17 18 ued metFORMIN (GLUCOPHAGE) Take 1,000 mg by mouth 2 0530/20 Discontin 1000 MG tablet (two) times daily with 18 ued breakfast and dinner. carvedilol (COREG) 6.25 Take 6.25 mg by mouth 2 07/02/19 Discontin MG tablet (two) times daily with 18 ued breakfast and dinner. fenofibrate (TRICOR) 48 Take 48 mg by mouth 08/18/19 Discontin MG tablet daily. 18 ued insulin lispro Inject 0.45 mLs (45 Units 0 07/03/19 08/18/19 Discontin protamin-lispro (HUMALOG total) subcutaneously 3 18 18 ued 75-25) 100 unit/mL (three) times daily (75-25) InPn injection before meals Start at 5 units then increase as you eat better at home. PROTONIX 40 mg tablet 06/29/19 08/18/19 Discontin 18 18 ued spironolactone 06/28/19 08/18/19 Discontin (ALDACTONE) 25 MG tablet 18 18 ued COREG 25 mg tablet 06/25/19 08/18/19 Discontin 18 18 ued lisinopril 06/24/19 08/18/19 Discontin (PRINIVIL,ZESTRIL) 40 MG 18 18 ued tablet levothyroxine (SYNTHROID, 05/26/19 08/18/19 Discontin LEVOTHROID) 100 MCG 18 18 ued tablet lisinopril Take 40 mg by mouth daily 05/26/19 08/18/19 Discontin (PRINIVIL,ZESTRIL) 40 MG . 18 18 ued tablet fenofibrate (TRICOR) 48 05/26/19 08/18/19 Discontin MG tablet 18 18 ued valsartan-hydrochlorothia 05/20/19 08/18/19 Discontin zide (DIOVAN-HCT) 320-25 18 18 ued mg per tablet ZOLOFT 25 mg tablet 07/18/19 08/18/19 Discontin 18 18 ued ketoconazole (NIZORAL) 2 07/03/19 08/18/19 Discontin % cream 18 18 ued cyclobenzaprine Take 10 mg by mouth 3 0 06/21/19 08/18/19 Discontin (FLEXERIL) 10 MG tablet (three) times daily as 18 18 ued needed. Active Problems Problem Noted Date Acute kidney injury (HCC) 07/02/2017 Tinea versicolor 07/02/2017 Acute recurrent pancreatitis 07/01/2017 Acute on chronic pancreatitis (HCC) 06/30/2017 Hyperglycemia 06/29/2017 Intractable abdominal pain 06/02/2016 Pain of left lower extremity 04/13/2016 Unstable angina (HCC) 02/03/2016 Left leg cellulitis 09/10/2015 Morbid obesity (HCC) 12/03/2014 CAD (coronary artery disease)- CAD -- non-occlusive by heart cath - 2006 - 12/03/2014 [facility] - Dr. 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 Hypertriglyceridemia 12/15/2012 HTN (hypertension) 10/18/2012 Diabetes mellitus 10/18/2012 Encounters Date Type Specialty Care Team Description 08/17/2017 Emergency Emergency Medicine Chino Almendarez, Chest pain, unspecified - MD type (Primary Dx);Neck 08/18/2017 pain on left side;Morbid obesity ([facility]);Essential hypertension;Hyperglycemi a 08/17/2017 Orders Only General Internal Medicine 06/29/2017 [facility] General Internal Medicine Arthur Pinzon MD Hyperglycemia (Primary - Encounter Lm Edge MD Dx);Sepsis, due to 07/02/2017 Solo Acharya, unspecified organism MD ([facility]);Acute diarrhea;Acute nonintractable headache, unspecified headache type 06/29/2017 Orders Only General Internal Medicine 04/21/2017 Emergency Emergency Medicine Nico Alegria MD Chest pain, unspecified type (Primary [...] laterality (Primary Dx) 09/06/2016 Emergency Emergency Medicine Nico Alegria MD Acute midline low back pain without sciatica (Primary Dx) 08/24/2016 Emergency Emergency Medicine Panchito Lewis MD Sciatica , left side (Primary Dx);Lumbar radiculopathy;Hypertensio n, uncontrolled after 08/21/2016 Immunizations Name Dates Previously Given Next Due [...] Vital Sign Reading Time Taken Blood Pressure 163/75 08/17/2017 5:55 PM CDT Pulse 70 08/17/2017 5:55 PM CDT Temperature 36.7 C (98 F) 08/17/2017 5:55 PM CDT Respiratory Rate 18 08/17/2017 5:55 PM CDT Oxygen Saturation 96% 08/17/2017 3:40 PM CDT Inhaled Oxygen - - Concentration Weight 174.6 kg (385 lb) 08/17/2017 12:42 PM CDT Height 195.6 cm (6' 5") 08/17/2017 12:42 PM CDT Body Mass Index 45.65 08/17/2017 12:42 PM CDT Plan of Treatment Health Maintenance Due Date Last Done Comments INFLUENZA VACCINE 12/19/2017 Implants Implanted Type Area [employer] Device Expiration Model / Identifier Date Serial / Lot Stent Panc Advanix [id number] Str 3752 Stents-Per N/A: [employer] 12/18/2016 3752 / - [id number] ipheral Pancreas / Implanted: Qty: 1 on 06/22/2016 by [id number] Madison Barnard MD Procedures Procedure Name Priority Date/Time Associated Diagnosis Comments CRITICAL CARE Routine 06/29/2017 Results for this 5:23 PM CDT procedure are in the results section. after 08/21/2016 Results * ED ECG Interpretation (08/17/2017 5:55 PM) Only the most recent of 2 results within the time period is included. Narrative Chino Almendarez MD 08/17/20175:55 PM ECG/EKG Interpretation Date/Time: 08/17/2017 12:37 PM Performed by: CHINO ALMENDAREZ Authorized by: CHINO ALMENDAREZ The ECG was interpreted by ED physician. This ECG was not compared with previous ECG(s).The ECG is interpreted as sinus rhythm. Rate is normal rate. Heart rate is 69 BPM. Conduction: conduction normal. ST segments normal. [place] is left. Clinical Impression: non-specific ECGECG reviewed and does not meet STEMI criteria. Patient tolerance: Patient tolerated the procedure well with no immediate complications * XR chest 1 view portable / bedside (08/17/2017 2:20 PM) Only the most recent of 3 results within the time period is included. Specimen Performing Laboratory GE RIS Narrative FINAL REPORT Two frontal chest images compared to June 29, 2017 Discussion: Heart, lungs, bones, soft tissues unremarkable. No effusion or pneumothorax. Signed: Nico Bernard MD Report Verified Date/Time:08/17/2017 15:21:35 Reading Location: [facility] C013 Consult Reading Room Procedure Note Interface, External Ris In - 08/17/2017 6:18 PM CDT FINAL REPORT Two frontal chest images compared to June 29, 2017 Discussion: Heart, lungs, bones, soft tissues unremarkable. No effusion or pneumothorax. Signed: Nico Bernard MD Report Verified Date/Time: 08/17/2017 15:21:35 Reading Location: [facility] B1 [id number] Consult Reading Room * CBC with platelet count + automated diff (08/17/2017 1:00 PM) Only the most recent of 5 results within the time period is included. Component Value Ref Range WBC 5.6 3.5 - 10.5 K/ L RBC 4.76 4.63 - 6.08 M/ L Hemoglobin 15.5 13.7 - 17.5 GM/DL Hematocrit 44.2 40.1 - 51.0 % MCV 92.9 (H) 79.0 - 92.2 fL MCH 32.6 (H) 25.7 - 32.2 pg MCHC 35.1 32.3 - 36.5 GM/DL RDW 13.4 11.6 - 14.4 % Platelets 160 150 - 450 K/CU MM MPV 11.6 9.4 - 12.4 fL nRBC 0 0 - 0 /100 WBC % Neutros 55 % % Lymphs 32 % % Monos 10 % % Eos 2 % % Baso 1 % # Neutros 3.07 1.78 - 5.38 K/ L # Lymphs 1.78 1.32 - 3.57 K/ L # Monos 0.53 0.30 - 0.82 K/ L # Eos 0.13 0.04 - 0.54 K/ L # Baso 0.03 0.01 - 0.08 K/ L Immature 1 0 - 1 % Granulocytes-Relative Specimen [place] [address] * Troponin I (08/17/2017 1:00 PM) Only the most recent of 3 results within the time period is included. Component Value Ref Range Troponin I 0.01 0.00 - 0.03 ng/mL Specimen [place] [address] Narrative Troponin I (TnI) levels must be [...] CBC with platelet count + automated diff (08/17/2017 1:00 PM) Only the most recent of 5 results within the time period is included. Specimen Performing Laboratory Blood Narrative The following orders were created for panel order CBC with platelet count + automated diff. Procedure Abnormality Status --------- - ------ CBC with platelet count ...[[id number]]AbnormalFinal result Please view results for these tests on the individual orders. * B-type Natriuretic Factor (BNP) (08/17/2017 1:00 PM) Only the most recent of 3 results within the time period is included. Component Value Ref Range BNP 12 0 - 100 pg/mL Specimen Performing Laboratory Blood [address] [address] * Creatine Kinase (CK), Total and MB (08/17/2017 1:00 PM) Only the most recent of 3 results within the time period is included. Component Value Ref Range Total CK 223 (H) 29 - 200 U/L CK-MB 3.0 0.0 - 6.6 ng/mL MB Relative Index 1.3 % Specimen Performing Laboratory Blood [address] [address] Narrative CK-MB Reference Range: <6.7Normal 6.7-10.0Borderline >10.0 Abnormal * Basic Metabolic Panel (08/17/2017 1:00 PM) Only the most recent of 6 results within the time period is included. Component Value Ref Range Sodium 139 136 - 145 meq/L Potassium 4.0Comment: Specimen slightly hemolyzed 3.5 - 5.1 meq/L Chloride 105 98 - 107 meq/L CO2 22 22 - 29 meq/L BUN 22 (H) 7 - 21 mg/dL Creatinine 1.48 (H)Comment: Specimen slightly hemolyzed 0.57 - 1.25 mg/dL Glucose 188 (H) 70 - 105 mg/dL Calcium 9.8 8.4 - 10.2 mg/dL EGFR 51Comment: ESTIMATED GFR IS NOT ACCURATE mL/min/1.73 sq m CREATININE CLEARANCE IN PREDICTING GLOMERULAR FILTRATION RATE. ESTIMATED GFR IS NOT APPLICABLE FOR DIALYSIS PATIENTS. Specimen Performing Laboratory Blood [address] [address] * ECG 12 lead (08/17/2017 12:37 PM) Only the most recent of 3 results within the time period is included. Specimen Performing Laboratory GE MUSE Narrative Ventricular Rate 69 BPM Atrial Rate 69 BPM P-R Interval 186 ms QRS Duration 96 ms Q-T Interval 406 ms QTC Calculation(Bazett) 435 ms P [place] 60 degrees R [place] -42 degrees T [place] 24 degrees Normal sinus rhythm Left axis deviation Poor R wave progression Abnormal ECG When compared with ECG of 29-JUN-2017 14:53, No significant change was found Confirmed by MD Gambino Roberto ([id number]) on 08/18/2017 9:22:27 AM Procedure Note Interface, External Ris In - 08/18/2017 9:22 AM CDT Ventricular Rate 69 BPM Atrial Rate 69 BPM P-R Interval 186 ms QRS Duration 96 ms Q-T Interval 406 ms QTC Calculation(Bazett) 435 ms P [place] 60 degrees R [place] -42 degrees T [place] 24 degrees Normal sinus rhythm Left axis deviation Poor R wave progression Abnormal ECG When compared with ECG of 29-JUN-2017 14:53, No significant change was found Confirmed by MD Gambino Roberto ([id number]) on 08/18/2017 9:22:27 AM * RHYTHM STRIP - SCAN (07/05/2017 8:42 AM) * POC-Glucose meter (07/02/2017 1:40 PM) Only the most recent of 16 results within the time period is included. Component Value Ref Range POC-Glucose Meter 214 (H)Comment: TESTED AT [address] 70 - 110 mg /dL [facility] [id number] Specimen Performing Laboratory Blood [address] [address] * Magnesium (07/02/2017 9:35 AM) Only the most recent of 5 results within the time period is included. Component Value Ref Range Magnesium 2.4Comment: Specimen slightly hemolyzed 1.6 - 2.6 mg/dL Specimen Performing Laboratory Blood - Arm, Left [address] [address] * Blood gas, arterial (07/02/2017 5:37 AM) Component Value Ref Range pH, Arterial 7.39 7.35 - 7.45 pCO2, Arterial 44 35 - 45 mmHg pO2, Arterial 66 (L) 80 - 90 mmHg O2 Sat, Arterial 93.3 (L) 96.0 - 97.0 % HCO3, Arterial 26 21 - 29 mmol/L Base Excess, Arterial 0.8 -2.0 - 3.0 mmol/L Patient Temperature 36.7 C FIO2 21.0 % Specimen Performing Laboratory Blood, Arterial [address] [address] * Blood gas, venous (07/01/2017 6:42 PM) Only the most recent of 2 results within the time period is included. Component Value Ref Range pH, Rahat 7.37 7.32 - 7.42 pCO2, Rahat 51 41 - 51 mmHg pO2, Rahat 17 (L) 25 - 40 mmHg O2 Sat, Rahat 22.3 (L) 40.0 - 70.0 % HCO3, Rahat 29 21 - 29 mmol/L Base Excess, Rahat 2.7 -2.0 - 3.0 mmol/L Patient Temperature 37.0 C Specimen Performing Laboratory Blood [address] [address] * Lactic acid, venous, whole blood (07/01/2017 6:27 PM) Only the most recent of 5 results within the time period is included. Component Value Ref Range Lactate, Venous 2.2Comment: Specimen markedly hemolyzed 0.5 - 2.2 mmol/L Specimen Performing Laboratory Blood [address] [address] Narrative Effective 07/23/2015: Units/Reference Range Change New: 0.5-2.2 mmol/LPrevious: 5-20 mg/dL Specimen markedly lipemic * Ketone, blood (07/01/2017 6:27 PM) Only the most recent of 2 results within the time period is included. Component Value Ref Range Ketones, Blood 0.3 <0.4 mmol/L Specimen Performing Laboratory Blood [address] [address] * Lipase (07/01/2017 4:02 PM) Only the most recent of 3 results within the time period is included. Component Value Ref Range Lipase 35 8 - 78 U/L Specimen Performing Laboratory Blood - Arm, Right [address] [address] * Hepatic function panel (07/01/2017 4:02 PM) Only the most recent of 2 results within the time period is included. Component Value Ref Range Protein, Total 7.6Comment: Specimen markedly hemolyzed 6.0 - 8.3 gm/dL Albumin 3.7Comment: Specimen markedly hemolyzed 3.5 - 5.0 g/dL Total Bilirubin 0.6Comment: Specimen markedly hemolyzed 0.2 - 1.2 mg/dL Bilirubin, Direct 0.1Comment: Specimen markedly hemolyzed 0.1 - 0.5 mg/dL Alkaline Phosphatase 55 40 - 150 U/L AST 47 (H)Comment: Specimen markedly hemolyzed 5 - 34 U/L ALT 32Comment: Specimen markedly hemolyzed 6 - 55 U/L Specimen Performing Laboratory Blood - Arm, [place] [address] Narrative Specimen moderately lipemic * Manual Differential (07/01/2017 4:38 AM) Only the most recent of 2 results within the time period is included. Component Value Ref Range Total Counted WBC Morphology Normal Platelet Morphology Normal RBC Morphology Normal Specimen Performing Laboratory Blood - Arm, [place] [address] * Clostridium difficile GDH Toxin (06/30/2017 9:04 PM) Component Value Ref Range C. Difficle Toxin Negative Negative C. Difficile GDH Antigen NegativeComment: No indication of Clostridium Negative difficile infection and no colonization. Discontinue enteric isolation and therapy. Specimen [place] [address] Narrative Testing performed by [employer] Rapid Cassette Assay.For GDH, published sensitivity of the assay is 98.7% compared to cytotoxicity testing.For Toxin AB, published sensitivity is 87.8% and specificity 99.4% compared to cytotoxicity testing. Verification of kit performance was done by the [facility] Microbiology Lab prior to clinical use. Testing performed by [employer] Rapid Cassette Assay.For GDH, published sensitivity of the assay is 98.7% compared to cytotoxicity testing.For Toxin AB, published sensitivity is 87.8% and specificity 99.4% compared to cytotoxicity testing. Verification of kit performance was done by the [facility] Microbiology Lab prior to clinical use. * STOOL PATH CHARGE (06/30/2017 9:04 PM) Component Value Ref Range Pathogen exam charged Done Specimen [place]forming [place] [address] * Stool culture + Shiga toxin (06/30/2017 9:04 PM) Component Value Ref Range Result No Salmonella, Shigella or Campylobacter isolated Specimen [place]forming [place] [address] Narrative * Phosphorus (06/30/2017 1:04 AM) Only the most recent of 2 results within the time period is included. Component Value Ref Range Phosphorus 2.2 (L)Comment: Specimen markedly hemolyzed 2.3 - 4.7 mg/dL Specimen Performing Laboratory Blood [address] [address] * Hemoglobin A1c (06/30/2017 1:04 AM) Component Value Ref Range Hemoglobin A1C 13.7 (H) 4.3 - 6.1 % Specimen [place] [address] * Lipid panel (06/30/2017 1:04 AM) Component Value Ref Range Triglycerides 5383Comment: Specimen markedly hemolyzed mg/dL Cholesterol 451Comment: Specimen markedly hemolyzed mg/dL HDL 12 mg/dL Specimen [place] [address] Narrative Calculated LDL not valid if triglyceride >400 mg/dL Triglyceride Reference Range: Low Risk <150 [id number] High Risk 200-499 Very High Risk>=500 Cholesterol Reference Range: Low Risk <200 [id number] High Risk>240 HDL Cholesterol Reference Range: Low Risk >=60 High Risk <40 LDL Cholesterol Reference Range: Optimal<100 Near Gsvpyca290-681 [id number] Belz627-854 Very High >=190 Specimen markedly lipemic * CT abdomen/pelvis with IV contrast (06/29/2017 9:46 PM) Specimen Performing Laboratory [employer] Narrative FINAL REPORT CT, ABDOMEN \\T\\ PELVIS, WITH IV CONTRAST INDICATION: "Abd pain, gastroenteritis or colitis suspected pancreatitis" COMPARISON: CT abdomen and pelvis 06/02/2016 TECHNIQUE:Post contrast axially oriented images were obtained from the diaphragms through the pelvis. Coronal and sagittal reformats were provided. DOSE REDUCTION: Dose modulation, iterative reconstruction, and/or weight-based adjustment of the mA/kV was utilized to reduce the radiation dose to as low as reasonably achievable. FINDINGS: Lung bases are grossly clear. No acute abnormality of the solid abdominal viscera. Fatty liver. No acute abnormality of the hollow abdominal viscera. Normal appendix. No focal lytic or destructive bony process. IMPRESSION: No acute abnormality in the abdomen or pelvis. Signed: Sharona Interiano MD Report Verified Date/Time:06/29/2017 21:51:53 Reading Location: [address] Transitional Reading Room Procedure Note Interface, External Ris In - 06/29/2017 9:54 PM CDT FINAL REPORT CT, ABDOMEN \\T\\ PELVIS, WITH IV CONTRAST INDICATION: "Abd pain, gastroenteritis or colitis suspected pancreatitis" COMPARISON: CT abdomen and pelvis 06/02/2016 TECHNIQUE: Post contrast axially oriented images were obtained from the diaphragms through the pelvis. Coronal and sagittal reformats were provided. DOSE REDUCTION: Dose modulation, iterative reconstruction, and/or weight-based adjustment of the mA/kV was utilized to reduce the radiation dose to as low as reasonably achievable. FINDINGS: Lung bases are grossly clear. No acute abnormality of the solid abdominal viscera. Fatty liver. No acute abnormality of the hollow abdominal viscera. Normal appendix. No focal lytic or destructive bony process. IMPRESSION: No acute abnormality in the abdomen or pelvis. Signed: Sharona Interiano MD Report Verified Date/Time: 06/29/2017 21:51:53 Reading Location: [address] Transitional Reading Room * CT brain without IV contrast (06/29/2017 7:34 PM) Specimen Performing Laboratory RIS Narrative FINAL REPORT CT head without contrast 06/29/2017 7:34 PM CLINICAL HISTORY: Headache, acute, norm neuro exam BLOOD SUGAR PROBLEM TECHNIQUE: Axial noncontrast CT images through the head were obtained. This examination was performed according to our departmental dose optimization program, which includes automated exposure control, adjustment of the mA and/or kV according to patient size, and/or use of iterated reconstruction technique. COMPARISON: 06/10/2015 FINDINGS: There is no hemorrhage, extra-axial collection, mass, hydrocephalus, or midline shift. There is no CT evidence for cerebral infarction. The visualized paranasal sinuses and mastoid air cells are well aerated. The skull is intact. IMPRESSION: No intracranial hemorrhage or mass effect. If concern for acute pathology persists, further evaluation with MRI is recommended. Signed: Vernon Juarez MD Report Verified Date/Time:06/29/2017 19:36:58 Reading Location: [facility] Radiology Reading Room Procedure Note Interface, External Ris In - 06/29/2017 7:39 PM CDT FINAL REPORT CT head without contrast 06/29/2017 7:34 PM CLINICAL HISTORY: Headache, acute, norm neuro exam BLOOD SUGAR PROBLEM TECHNIQUE: Axial noncontrast CT images through the head were obtained. This examination was performed according to our departmental dose optimization program, which includes automated exposure control, adjustment of the mA and/or kV according to patient size, and/or use of iterated reconstruction technique. COMPARISON: 06/10/2015 FINDINGS: There is no hemorrhage, extra-axial collection, mass, hydrocephalus, or midline shift. There is no CT evidence for cerebral infarction. The visualized paranasal sinuses and mastoid air cells are well aerated. The skull is intact. IMPRESSION: No intracranial hemorrhage or mass effect. If concern for acute pathology persists, further evaluation with MRI is recommended. Signed: Vernon Juarez MD Report Verified Date/Time: 06/29/2017 19:36:58 Reading Location: [facility] Radiology Reading Room * Critical Care (06/29/2017 5:23 PM) Narrative Arthur Pinzon MD 06/29/20175:23 PM Critical Care Performed by: ARTHUR PINZON Authorized by: ARTHUR PINZON Total critical care time: 50 minutes Critical care was necessary to treat or prevent imminent or life-threatening deterioration of the following conditions: endocrine crisis. Critical care was time spent personally by me on the following activities: discussions with consultants, evaluation of patient's response to treatment, examination of patient, obtaining history from patient or surrogate, ordering and performing treatments and interventions, ordering and review of laboratory studies, ordering and review of radiographic studies, pulse oximetry and re-evaluation of patient's condition. * Blood culture #2 (06/29/2017 4:30 PM) Only the most recent of 2 results within the time period is included. Component Value Ref Range Result No growth in 5 days Specimen Performing Laboratory Blood - Arm, [place] [address] * POC-Lactic Acid, Venous (06/29/2017 3:43 PM) Component Value Ref Range POC-Lactic Acid, Venous 2.4 (H)Comment: TESTED AT [address] 0.9 - 1.7 mmol/L [place] [address] Specimen [place] [address] * Urinalysis w/Microscopic + Reflex to Culture - Cath (06/29/2017 2:54 PM) Component Value Ref Range Color, UA Light Yellow Clarity, UA Clear Specific [place], UA 1.019 1.001 - 1.035 pH, UA 6.0 5.0 - 8.0 Protein, UA 10 mg/dL (A) Negative Glucose, UA >1000 mg/dL (A) Negative Ketones, UA Negative Negative Bilirubin, UA Negative Negative Blood, UA Negative Negative Nitrite, UA Negative Negative Leukocytes, UA Negative Negative Urobilinogen, UA 0.2 0.2 - 1.0 mg/dL RBC, UA 0 /HPF WBC, UA <1 /HPF Squam Epithel, UA <1 /HPF Specimen Source Specimen Performing Laboratory Urine - Urine, [place] [address] * Urine culture (06/29/2017 2:54 PM) Component Value Ref Range Result >100,000 col/mL skin omar Specimen Performing [place] [address] * Comprehensive metabolic panel (06/29/2017 2:54 PM) Component Value Ref Range Protein, Total 12.8 (H)Comment: Specimen markedly hemolyzed 6.0 - 8.3 gm/ dL Albumin 4.0Comment: Specimen markedly hemolyzed 3.5 - 5.0 g/dL Alkaline Phosphatase 102 40 - 150 U/L Total Bilirubin 0.3Comment: Specimen markedly hemolyzed 0.2 - 1.2 mg/dL Sodium 121 (L) 136 - 145 meq/L Potassium 5.5 (H)Comment: Specimen markedly hemolyzed 3.5 - 5.1 meq/L Chloride 93 (L) 98 - 107 meq/L CO2 19 (L) 22 - 29 meq/L BUN 24 (H) 7 - 21 mg/dL Creatinine 1.56 (H)Comment: Specimen markedly hemolyzed 0.57 - 1.25 mg/dL Glucose 728 (HH) 70 - 105 mg/dL Calcium 9.3 8.4 - 10.2 mg/dL AST 47 (H)Comment: Specimen markedly hemolyzed 5 - 34 U/L ALT 28Comment: Specimen markedly hemolyzed 6 - 55 U/L EGFR 48Comment: ESTIMATED GFR IS NOT ACCURATE mL/min/1.73 sq m CREATININE CLEARANCE IN PREDICTING GLOMERULAR FILTRATION RATE. ESTIMATED GFR IS NOT APPLICABLE FOR DIALYSIS PATIENTS. Specimen Performing Laboratory Blood [address] [address] Narrative Specimen markedly lipemic * PT/PTT (04/21/2017 11:23 AM) Component Value Ref Range Protime 14.5 11.7 - 14.7 seconds INR 1.1 <=5.9 PTT 24.5 22.5 - 36.0 seconds Specimen Performing Laboratory Blood [address] [address] Narrative RECOMMENDED COUMADIN/WARFARIN INR THERAPY RANGES STANDARD DOSE: 2.0 - 3.0 Includes: PROPHYLAXIS for venous thrombosis, systemic embolization; TREATMENT for venous thrombosis and/or pulmonary embolus. HIGH RISK: Target INR is 2.5-3.5 for patients with mechanical heart valves. * MR spine lumbar without IV contrast (09/15/2016 2:37 PM) Specimen Performing Laboratory [facility] Narrative FINAL REPORT MRI lumbar spine without [...] MD Report Verified Date/Time:09/15/2016 14:45:18 Reading Location: [address] Neuro Reading Room Procedure Note Interface, [...] Report Verified Date/Time: 09/15/2016 14:45:18 Reading Location: [facility] B1 C013V Neuro Reading Room after 08/21/2016
--- OUTSIDE RECORDS SUMMARY | 2017-08-22 14:04 | XMS REPORT | Continuity of Care Document ---
Author Author [facility] Organization [facility] Address [address] [place] [address] Phone Unavailable Care Team Providers Care Mower Sharpener Name Role Phone NONSTAFF PCP Unavailable Insurance Providers Guarantor Pedro Luis Barnhart Address [address] [place] [address] Email NONE Payer [facility] Policy Number [id number] Subscriber's Name Pedro Luis Barnhart Relationship 18 Self / Same As Patient Group Number [id number] Group Name [facility] Effective Date 16 Advance Directives Directive Response Recorded Date/Time Does the patient have an advance directive? No 10/01/16 9:42am If yes, is advance directive on file with [facility]? No 10/01/16 9:42am If not on file with [facility] will patient provide a copy? No 03/04/17 11:31pm Problems Medical Problem Onset Date Status Abdominal pain Unknown Chest pain Unknown Diabetes Unknown Acute Hyperglycemia Unknown Hypertension Unknown Acute Obesity Unknown Acute Poorly controlled diabetes mellitus Unknown UTI (urinary tract infection) Unknown Unstable angina Unknown Vomiting and diarrhea Unknown Medications Current Home Medications Medication Dose Units Route Directions Days Qty Instructions Start Date Albuterol Sulfate (Proair Hfa Inhaler*) 8.5 Gm Inh Amlodipine Besylate 10 Mg Tablet 10 Mg Oral Daily 30 Tab Atorvastatin Calcium 40 Mg Tablet 40 Mg Oral Daily Baclofen 10 Mg Tablet 10 Mg Oral Bedtime 90 Tab Carvedilol (Coreg) 3.125 Mg Tab 12.5 Mg Oral Every 12 Hours 30 Days 10/03/16 Cetirizine Hcl/Pseudoephedrine ([facility] Allergy Relief-D Tablet) 1 Each Tab.er.12h 150 Mg Oral As Needed Clopidogrel Bisulfate (Clopidogrel) 75 Mg Tablet 75 Mg Oral Daily 30 Tab Clotrimazole 15 Gm Cream..g. 1 % Topically for Rash Fenofibrate 160 Mg Tablet 48 Mg Oral Daily Gabapentin 300 Mg Capsule 600 Mg Oral Bedtime 60 Cap Hydrocodone Bit/Acetaminophen ([place] 10-325 Tablet) 1 Each Tablet Every 6 Hours as needed for Pain Hydroxyzine Hcl 25 Mg Tablet 50 Mg Oral Every 8 Hours as needed for Itching 14 Days 10/03/16 Insulin Detemir 100 Unit/Ml Pen 20 Unit Sub-Q Every 12 Hours 30 Days 10/03/16 Levothyroxine Sodium 50 Mcg Tablet 100 Mcg Oral Daily 30 Tab Lisinopril 10 Mg Tablet 40 Mg Oral Daily 30 Tab Metoclopramide Hcl 10 Mg Tablet 10 Mg Oral Before Meals And At Bedtime 30 Days 10/03/16 Pantoprazole Sodium (Protonix) 40 Mg Tablet.dr 40 Mg Oral Daily Sertraline Hcl (Zoloft) 50 Mg Tablet 25 Mg Oral Daily 30 Tab Ursodiol (Parker) 250 Mg Tablet 250 Mg Oral Every Morning Past Home Medications Medication Directions Ordered Status Acetaminophen With Codeine (Tylenol With Codeine #3 Tablet) 1 Each Tablet, 1 Tab Oral Every 4 Hours Discontinued Acetaminophen With Codeine (Tylenol With Codeine #3 Tablet) 1 Each Tablet, 300 Mg Oral Every 4 Hours as needed for Pain 01/31/16 Discontinued Acetaminophen With Codeine (Tylenol With Codeine #3 Tablet) 1 Each Tablet, 300 Mg Oral Every 4 Hours as needed for Pain 01/31/16 Discontinued Albuterol Sulfate (Albuterol Sulfate Hfa) 8.5 Gm Hfa.aer.ad, 2 Dose Inhalation Every 6 Hours as needed for Shortness Of Breath Discontinued Amlodipine Besylate/Benazepril (Amlodipine-Benazepril 10-40 Mg) 1 Each Capsule , 1 Tab Oral Daily Discontinued Aspirin (Aspir 81) 81 Mg Tablet.dr, 81 Mg Oral Daily Discontinued Butalbital/Aspirin/Caffeine (Fiorinal 50-325-40 Mg Capsule) 1 Each Capsule, 1 Cap Oral Every 4 Hours as needed for Ain Discontinued Carvedilol 25 Mg Tablet, 6.25 Mg Oral Every Morning Discontinued Cyclobenzaprine Hcl 10 Mg Tablet, 10 Mg Oral Three Times A Day as needed for Pain Discontinued Dicyclomine Hcl 20 Mg Tablet, 20 Mg Oral Every 6 Hours Discontinued Doxycycline Hyclate 100 Mg Capsule, 100 Mg Oral Daily Discontinued Famotidine (Pepcid) 20 Mg Tablet, 20 Mg Oral Twice A Day Discontinued Hydralazine Hcl 50 Mg Tablet, 10 Mg Oral Three Times A Day Discontinued Hydrocodone/Chlorphen Polis (Tussionex Pennkinetic Susp) 480 Ml Julia.er.12h, 5 Ml Oral Q12hrs Discontinued Hydroxyzine Hcl 25 Mg Tablet, 25 Mg Oral Twice A Day Discontinued Ibuprofen 400 Mg Tablet, 800 Mg Oral Every 4 Hours Discontinued Insulin Aspart (Novolog Mix 70-30 Vial) 100 Units/Ml Ml, 60 Units Sub-Q Three Times A Day Discontinued Insulin Lispro (Humalog) 100 Unit/1 Ml Insuln.pen, 80 Units Sub-Q Before Meals Discontinued Isosorbide Mononitrate (Isosorbide Mononitrate Er) 30 Mg Tab.er.24h, 30 Mg Oral Daily Discontinued Levofloxacin 500 Mg Tablet, 500 Mg Oral Daily Discontinued Meloxicam 7.5 Mg Tablet, 15 Mg Oral Daily Discontinued Metformin Hcl 500 Mg Tablet, 500 Mg Oral Twice A Day Discontinued Nitroglycerin (Nitrostat) 0.4 Mg Tab.subl, 0.4 Mg Sublingual As Needed Discontinued Ondansetron (Zofran Odt) 4 Mg Tab.rapdis, 4 Mg Every 6 Hours as needed for Nausea And Vomiting Discontinued Sulfamethoxazole/Trimethoprim (Bactrim Ds Tablet) 1 Each Tablet, 1 Each Oral Twice A Day 11/11/15 Discontinued Tramadol Hcl (Ultram 50MG*) 50 Mg Tab, 50 Mg Oral Every 6 Hours as needed for Pain Discontinued Tramadol Hcl (Ultram 50MG*) 50 Mg Tab, 50 Mg Oral Q4-6HRS Discontinued Social History Social History Problem Response Recorded Date/Time Onset Date Status Hx Psychiatric Problems No 10/01/2016 9:42am Not Applicable Not Applicable Hx Eating Disorder No 10/01/2016 9:42am Not Applicable Not Applicable Hx Substance Use Disorder No 10/01/2016 9:42am Not Applicable Not Applicable Hx Depression No 10/01/2016 9:42am Not Applicable Not Applicable Hx Alcohol Use N - social 10/01/2016 9:42am Not Applicable Not Applicable Hx Substance Use Treatment No 10/01/2016 9:42am Not Applicable Not Applicable Hx Physical Abuse No 10/01/2016 9:42am Not Applicable Not Applicable Smoking Status Start Date Stop Date Current some day smoker Hospital Discharge Instructions No hospital discharge instruction information available. Plan of Care Discharge Date 06/20/17 4:31pm Disposition HOME, SELF-CARE Condition at Discharge Stable Instructions/Education Provided Chest Pain - Noncardiac Chest Pain - Chest Wall Forms Provided Work/School Excuse Prescriptions See Medication Section Referrals Fili Bentley MD, AHMAD M MD Address: [address] [place] [id number] Additional Instructions/Education 1. follow up with your doctor and transit authority police officer in 1-2 days without fail 2. return to ed as needed 3. rest no heavy lifting Functional Status No functional status information available. Allergies, Adverse Reactions, Alerts Allergen Type Severity Reaction Status Last Updated Sulfamethoxazole Allergy Unknown Active 01/07/16 Trimethoprim Allergy Unknown Active 01/07/16 Immunizations No immunization information available. Vital Signs Acute Vital Signs Vital Response Date/Time Temperature (Fahrenheit) 98.2 degrees F (97.6 - 99.5) 11/23/2016 12:41am Pulse Pulse Rate (adult) 67 bpm (60 - 90) 06/20/2017 4:06pm Respiratory Rate 18 bpm (12 - 24) 06/20/2017 4:06pm Blood Pressure 123/81 mm Hg 06/20/2017 4:06pm Height 6 ft 5 in 06/20/2017 11:46am Weight 390 lb 06/20/2017 11:46am Body Mass Index 46.2 kg/m^2 06/20/2017 11:46am Results Laboratory Results Test Name Result Units Flags Reference Collection Date/Time Result Date/ Time Comments Bedside Glucose 242 mg/dL H 70-120 10/03/2016 7:58pm 10/03/2016 8:07pm Meter ID: [id number] Hemoglobin A1c Percent 11.3 % H 4.0-7.0 10/03/2016 7:00am 10/03/2016 8: 17am Lactic Acid Level 9.3 MG/DL 4.5-19.8 10/01/2016 7:05am 10/01/2016 7: 40am Magnesium Level 2.7 MG/DL H 1.3-2.1 10/01/2016 7:05am 10/01/2016 7:35am Triglycerides Level 1629 MG/DL H 0-149 10/02/2016 6:35am 10/02/2016 8: 16am DILUTED ON ANALYZER Cholesterol Level 399 MD/DL H 0-199 10/02/2016 6:35am 10/02/2016 8:16am Less than 200 mg/dL Low Risk 201 - 239 mg/dL Borderline Risk 240 mg/dl and greater High Risk HDL Cholesterol 27 MG/DL L 40-60 10/02/2016 6:35am 10/02/2016 8:16am Cholesterol/HDL Ratio 14.8 H 3.9-4.7 10/02/2016 6:35am 10/02/2016 8: 16am Amylase Level 51 U/L 25-125 10/01/2016 1:00am 10/01/2016 2:03am Arterial Blood pH 7.36 7.31-7.41 10/01/2016 8:21am 10/01/2016 8:39am Arterial Blood Partial Pressure CO2 45 mmHg 41-51 10/01/2016 8:21am 8:39am Arterial Blood Partial Pressure O2 69 mmHg L 80-105 10/01/2016 8:21am 8:39am Arterial Blood HCO3 26 mmol/L 23-28 10/01/2016 8:21am 10/01/2016 8: 39am Arterial Blood Base Excess 0.0 mmol/L -2 - 3 10/01/2016 8:21am 2016 8:39am Arterial Blood Oxygen Saturation 93.0 % L 95-98 10/01/2016 8:21am 2016 8:39am ROOM AIR Lipase 16 U/L 8-78 12/02/2016 11:20am 12/02/2016 11:50am White Blood Count 4.24 x10e3/uL L 4.8-10.8 06/20/2017 1:38pm 06/20/2017 2:42pm Red Blood Count 4.98 x10e6/uL 4.3-5.7 06/20/2017 1:38pm 06/20/2017 2: 42pm Hemoglobin 15.6 g/dL 14.0-18.0 06/20/2017 1:38pm 06/20/2017 2:42pm Hematocrit 43.2 % 38.2-49.6 06/20/2017 1:38pm 06/20/2017 2:42pm Mean Corpuscular Volume 86.7 fL 81-99 06/20/2017 1:38pm 06/20/2017 2: 42pm Mean Corpuscular Hemoglobin 31.3 pg 28-32 06/20/2017 1:38pm 06/20/2017 2:42pm Mean Corpuscular Hemoglobin Concent 36.1 g/dL H 31-35 06/20/2017 1:38pm 06/20/2017 2:42pm Red Cell Distribution Width 13.2 % 11.7-14.4 06/20/2017 1:38pm 2017 2:42pm Platelet Count 138 x10e3/uL L 140-360 06/20/2017 1:38pm 06/20/2017 2: 42pm Neutrophils (%) (Auto) 54.0 % 38.7-80.0 06/20/2017 1:38pm 06/20/2017 2: 42pm Lymphocytes (%) (Auto) 34.4 % 18.0-39.1 06/20/2017 1:38pm 06/20/2017 2: 42pm Monocytes (%) (Auto) 8.7 % 4.4-11.3 06/20/2017 1:38pm 06/20/2017 2: 42pm Eosinophils (%) (Auto) 1.9 % 0.0-6.0 06/20/2017 1:38pm 06/20/2017 2: 42pm Basophils (%) (Auto) 0.5 % 0.0-1.0 06/20/2017 1:38pm 06/20/2017 2:42pm IM GRANULOCYTES % 0.5 % 0.0-1.0 06/20/2017 1:38pm 06/20/2017 2:42pm Neutrophils # (Auto) 2.3 2.1-6.9 06/20/2017 1:38pm 06/20/2017 2:42pm Lymphocytes # (Auto) 1.5 1.0-3.2 06/20/2017 1:38pm 06/20/2017 2:42pm Monocytes # (Auto) 0.4 0.2-0.8 06/20/2017 1:38pm 06/20/2017 2:42pm Eosinophils # (Auto) 0.1 0.0-0.4 06/20/2017 1:38pm 06/20/2017 2:42pm Basophils # (Auto) 0.0 0.0-0.1 06/20/2017 1:38pm 06/20/2017 2:42pm Absolute Immature Granulocyte (auto 0.02 x10e3/uL 0-0.1 06/20/2017 1: 38pm 06/20/2017 2:42pm Prothrombin Time 14.5 seconds 11.9-14.5 06/20/2017 1:38pm 06/20/2017 2: 56pm Prothromb Time International Ratio 1.22 06/20/2017 1:38pm 2017 2:56pm Oral Anticoagulant Therapy INR Values: 1. Low Intensity Therapy 1.5 - 2.0 2. Moderate Intensity Therapy 2.0 - 3.0 3. High Intensity Therapy(1) 2.5 - 3.5 4. High Intensity Therapy(2) 3.0 - 4.0 5. Panic Value INR > 5.0 Activated Partial Thromboplast Time 24.2 seconds 23.8-35.5 06/20/2017 1: 38pm 06/20/2017 2:56pm Urine Color YELLOW YELLOW 06/20/2017 1:38pm 06/20/2017 2:51pm Urine Clarity SL CLOUDY H CLEAR 06/20/2017 1:38pm 06/20/2017 2:51pm Urine Specific [place] 1.010 1.010-1.025 06/20/2017 1:38pm 2017 2:51pm Urine pH 5 5 - 7 06/20/2017 1:38pm 06/20/2017 2:51pm Urine Leukocyte Esterase NEGATIVE NEGATIVE 06/20/2017 1:38pm 2017 2:51pm Urine Nitrite NEGATIVE NEGATIVE 06/20/2017 1:38pm 06/20/2017 2:51pm Urine Protein 1+ H NEGATIVE 06/20/2017 1:38pm 06/20/2017 2:51pm Urine Glucose (UA) NEGATIVE NEGATIVE 06/20/2017 1:38pm 06/20/2017 2: 51pm Urine Ketones NEGATIVE NEGATIVE 06/20/2017 1:38pm 06/20/2017 2:51pm Urine Urobilinogen 1 mg/dL 0.2 - 1 06/20/2017 1:38pm 06/20/2017 2:51pm Urine Bilirubin NEGATIVE NEGATIVE 06/20/2017 1:38pm 06/20/2017 2: 51pm Urine Blood TRACE H NEGATIVE 06/20/2017 1:38pm 06/20/2017 2:51pm Urine WBC 6-10 /HPF H 0-5 06/20/2017 1:38pm 06/20/2017 3:00pm Urine RBC 6-10 /HPF H 0-5 06/20/2017 1:38pm 06/20/2017 3:00pm Urine Bacteria NONE /HPF NONE 06/20/2017 1:38pm 06/20/2017 3:00pm Urine Epithelial Cells NONE /LPF NONE 06/20/2017 1:38pm 06/20/2017 3: 00pm Urine Mucus MODERATE H RARE 06/20/2017 1:38pm 06/20/2017 3:00pm Sodium Level 136 mmol/L 136-145 06/20/2017 1:38pm 06/20/2017 3:00pm Potassium Level 3.8 mmol/L 3.5-5.1 06/20/2017 1:38pm 06/20/2017 3:00pm Chloride Level 101 mmol/L 98-107 06/20/2017 1:38pm 06/20/2017 3:00pm Carbon Dioxide Level 24 mmol/L 22-29 06/20/2017 1:38pm 06/20/2017 3: 00pm Anion Gap 14.8 mmol/L 8-16 06/20/2017 1:38pm 06/20/2017 3:00pm Blood Urea Nitrogen 26 mg/dL 7-26 06/20/2017 1:38pm 06/20/2017 3:00pm Creatinine 1.31 mg/dL H 0.72-1.25 06/20/2017 1:38pm 06/20/2017 3:00pm BUN/Creatinine Ratio 20 6-25 06/20/2017 1:38pm 06/20/2017 3:00pm Estimat Glomerular Filtration Rate 59 ML/MIN L 60- 06/20/2017 1:38pm 04/2017 3:00pm Ranges were taken from the National Kidney Disease Education Program and the National [employer] literature. Reference ranges: 60 or greater: Normal 16-59 (for 3 consecutive months): Chronic kidney disease 15 or less: Kidney failure Glucose Level 317 mg/dL H 74-118 06/20/2017 1:38pm 06/20/2017 3:00pm Calcium Level 9.4 mg/dL 8.4-10.2 06/20/2017 1:38pm 06/20/2017 3:00pm Total Bilirubin 0.6 mg/dL 0.2-1.2 06/20/2017 1:38pm 06/20/2017 3:00pm Aspartate Amino Transf (AST/SGOT) 17 IU/L 5-34 06/20/2017 1:38pm 2017 3:00pm Alanine Aminotransferase (ALT/SGPT) 29 IU/L 0-55 06/20/2017 1:38pm 04/2017 3:00pm Total Protein 7.1 g/dL 6.5-8.1 06/20/2017 1:38pm 06/20/2017 3:00pm Albumin 3.6 g/dL 3.5-5.0 06/20/2017 1:38pm 06/20/2017 3:00pm Globulin 3.5 g/dL 2.3-3.5 06/20/2017 1:38pm 06/20/2017 3:00pm Albumin/Globulin Ratio 1.0 0.8-2.0 06/20/2017 1:38pm 06/20/2017 3: 00pm Alkaline Phosphatase 83 IU/L 40-150 06/20/2017 1:38pm 06/20/2017 3: 00pm B-Type Natriuretic Peptide 14.2 pg/mL 0-100 06/20/2017 1:38pm 2017 3:10pm Creatine Kinase 135 IU/L 30-200 06/20/2017 1:38pm 06/20/2017 3:00pm Creatine Kinase MB 2.30 ng/mL 0-5.0 06/20/2017 1:38pm 06/20/2017 3: 21pm Troponin I 0.014 ng/mL 0-0.300 06/20/2017 1:38pm 06/20/2017 3:21pm Thyroid Stimulating Hormone (TSH) 2.030 uIU/mL 0.350-4.940 06/20/2017 1: 38pm 06/20/2017 3:21pm Procedures Procedure Status Date Provider(s) CT of abdomen and pelvis without contrast Active 10/01/16 YINKA POWERS MD Testicular ultrasound Active 03/04/17 JASVIR BUENO MD Dup-scan artl casi abdl/pel/scrot&/RPR orgn lmt Active 03/04/17 JASVIR BUENO MD Encounters Encounter Location Arrival/Admit Date Discharge/Depart Date Attending Provider Departed Emergency Room [facility] 06/20/17 11:38am 06/20 4:31pm VALERIE GAINES MD Departed Emergency Room [facility] 03/06/17 11:10am 03/06 12:28pm EFRAÍN GUZMAN MD Departed Emergency Room [facility] 03/04/17 7:57pm 11:29pm JASVIR BUENO MD Departed Emergency Room [facility] 12/02/16 10:59am 12/02 1:15pm EFRAÍN GUZMAN MD Departed Emergency Room [facility] 11/23/16 12:04am 11/23 1:45am PEDRO LUIS VENCES MD Discharged Inpatient [facility] 10/01/16 5:16am 10/04/16 12:25pm KATHE FRENCH MD
[2017-08-22] MEDS ORDERED: ASPIRIN 81 MG CHEW TAB PO ONE ×3 (14:30→15:09)
[2017-08-22 14:35] LABS: BASOPHILS % 0.3 % (0.0-1.0); EOSINOPHILS # (AUTO) 0.1 (0.0-0.4); EOSINOPHILS % 1.8 % (0.0-6.0); HEMATOCRIT 44.2 % (38.2-49.6); HEMOGLOBIN 15.7 g/dL (14.0-18.0); LYMPHOCYTES # (AUTO) 1.5 (1.0-3.2); LYMPHOCYTES % 21.6 % (18.0-39.1); MEAN CORPUSCULAR HEMOGLOBIN 32.4 pg (28-32); MEAN CORPUSCULAR HGB CONC 35.5 g/dL (31-35); MEAN CORPUSCULAR VOLUME 91.1 fL (81-99); MONOCYTES # (AUTO) 0.8 (0.2-0.8); MONOCYTES % 11.4 % (4.4-11.3); NEUTROPHILS # (AUTO) 4.3 (2.1-6.9); NEUTROPHILS % 64.2 % (38.7-80.0); PLATELET COUNT 151 x10e3/uL (140-360); RED BLOOD COUNT 4.85 x10e6/uL (4.3-5.7); RED CELL DISTRIBUTION WIDTH 13.2 % (11.7-14.4)
[2017-08-22 14:47] LABS: ALANINE AMINOTRANSFERASE 29 IU/L (0-55); ALBUMIN 3.8 g/dL (3.5-5.0); ALBUMIN/GLOBULIN RATIO 1.1 (0.8-2.0); ALKALINE PHOSPHATASE 43 IU/L (40-150); ANION GAP 14.4 mmol/L (8-16); BLOOD UREA NITROGEN 23 mg/dL (7-26); BUN/CREATININE RATIO 14 (6-25); CALCIUM 9.8 mg/dL (8.4-10.2); CARBON DIOXIDE 28 mmol/L (22-29); CHLORIDE 101 mmol/L (98-107); CREATINE KINASE 276 IU/L (30-200); CREATININE, SERUM 1.69 mg/dL (0.72-1.25); EST GLOMERULAR FILTRATION RATE 44 ML/MIN (60-); GLUCOSE 171 mg/dL (74-118); POTASSIUM 4.4 mmol/L (3.5-5.1); SODIUM 139 mmol/L (136-145)
[2017-08-22] MEDS ORDERED: MORPHINE SULFATE 2 MG/ML SYR IV ONE ×2 (15:04→17:15)
[2017-08-22] MEDS ORDERED: NITROGLYCERIN 0.4 MG SUBL SL PRN ×2 (15:15→18:30)
[2017-08-22] MEDS ORDERED: ONDANSETRON HCL INJ 2 MG/ML VIAL IV PRN (18:30)
--- OUTSIDE RECORDS SUMMARY | 2017-08-22 18:37 | XMS REPORT | Clinical Summary ---
Author Author [facility] Address Unknown Phone Unavailable Care Team Providers Care Hand Salter Name Role Phone PCP Unavailable Allergies Active [...] 100 each 0 04/23/19 Active Insulin Pen [place] 4 mm as written, do not 17 [...] by heart cath - 2006 - 12/03/2014 [facility] - Dr. 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 Hypertriglyceridemia 12/15/2012 HTN (hypertension) 10/18/2012 Diabetes mellitus 10/18/2012 Encounters Date Type Specialty Care Team Description 08/17/2017 Emergency Emergency Medicine Chino Almendarez, Chest pain, unspecified - MD type (Primary Dx);Neck 08/18/2017 pain on left side;Morbid obesity ([facility]);Essential hypertension;Hyperglycemi a 08/17/2017 Orders Only General Internal Medicine 06/29/2017 [facility] General Internal Medicine Arthur Pinzon MD Hyperglycemia (Primary - Encounter Lm Edge MD Dx);Sepsis, due to 07/02/2017 Solo Acharya, unspecified organism MD ([facility]);Acute diarrhea;Acute nonintractable headache, unspecified headache type 06/29/2017 [...] INFLUENZA VACCINE 12/19/2017 Implants Implanted Type Area Wood Casket Assembler Device Expiration Model / Identifier Date Serial / Lot Stent Panc Advanix [id number] Str 3752 Stents-Per N/A: [employer] 12/18/2016 3752 / - [id number] ipheral Pancreas / Implanted: Qty: 1 on 06/22/2016 by [id number] Madison Barnard MD Procedures Procedure Name Priority [...] BPM. Conduction: conduction normal. ST segments normal. Hawks is left. Clinical Impression: non-specific ECGECG reviewed [...] MD Report Verified Date/Time:08/17/2017 15:21:35 Reading Location: [facility] C013 Consult Reading Room Procedure Note Interface, External Ris In - 08/17/2017 6:18 PM CDT FINAL REPORT Two frontal chest images compared to June 29, 2017 Discussion: Heart, lungs, bones, soft tissues unremarkable. No effusion or pneumothorax. Signed: Nico Bernard MD Report Verified Date/Time: 08/17/2017 15:21:35 Reading Location: [facility] B1 C013W Consult Reading Room * CBC [...] 1 % Granulocytes-Relative Specimen [place]forming [place] [address] * Troponin I (08/17/2017 1:00 PM) Only the most recent of 3 results within the time period is included. Component Value Ref Range Troponin I 0.01 0.00 - 0.03 ng/mL Specimen Performing [place] [address] Narrative Troponin I (TnI) levels must be [...] --------- - ------ CBC with platelet count ...[[id number]]AbnormalFinal result Please view results for these tests on the individual orders. * B-type Natriuretic Factor (BNP) (08/17/2017 1:00 PM) Only the most recent of 3 results within the time period is included. Component Value Ref Range BNP 12 0 - 100 pg/mL Specimen Performing Laboratory Blood [address] [address] * Creatine Kinase (CK), Total and MB (08/17/2017 1:00 PM) Only the most recent of 3 results within the time period is included. Component Value Ref Range Total CK 223 (H) 29 - 200 U/L CK-MB 3.0 0.0 - 6.6 ng/mL MB Relative Index 1.3 % Specimen Performing Laboratory Blood [address] [address] Narrative CK-MB Reference Range: <6.7Normal 6.7-10.0Borderline >10.0 [...] FOR DIALYSIS PATIENTS. Specimen Performing Laboratory Blood [address] [address] * ECG 12 lead (08/17/2017 12:37 PM) Only the most recent of 3 results within the time period is included. Specimen Performing Laboratory GE [facility]USE Narrative Ventricular Rate 69 BPM Atrial Rate 69 BPM P-R Interval 186 ms QRS Duration 96 ms Q-T Interval 406 ms QTC Calculation(Bazett) 435 ms P Hawks 60 degrees R Hawks -42 degrees T Hawks 24 degrees Normal sinus rhythm Left axis [...] 406 ms QTC Calculation(Bazett) 435 ms P Hawks 60 degrees R Hawks -42 degrees T Hawks 24 degrees Normal sinus rhythm Left axis [...] Range POC-Glucose Meter 214 (H)Comment: TESTED AT [address] 70 - 110 mg /dL [facility] [id number] Specimen Performing Laboratory Blood [address] [address] * Magnesium (07/02/2017 9:35 AM) Only the most recent of 5 results within the time period is included. Component Value Ref Range Magnesium 2.4Comment: Specimen slightly hemolyzed 1.6 - 2.6 mg/dL Specimen Performing Laboratory Blood - Arm, Left [address] [address] * Blood gas, arterial (07/02/2017 5:37 AM) [...] 21.0 % Specimen Performing Laboratory Blood, Arterial [address] [address] * Blood gas, venous (07/01/2017 6:42 PM) [...] Temperature 37.0 C Specimen Performing Laboratory Blood [address] [address] * Lactic acid, venous, whole blood (07/01/2017 6:27 PM) Only the most recent of 5 results within the time period is included. Component Value Ref Range Lactate, Venous 2.2Comment: Specimen markedly hemolyzed 0.5 - 2.2 mmol/L Specimen Performing Laboratory Blood [address] [address] Narrative Effective 07/23/2015: Units/Reference Range Change New: 0.5-2.2 mmol/LPrevious: 5-20 mg/dL Specimen markedly lipemic * Ketone, blood (07/01/2017 6:27 PM) Only the most recent of 2 results within the time period is included. Component Value Ref Range Ketones, Blood 0.3 <0.4 mmol/L Specimen Performing Laboratory Blood [address] [address] * Lipase (07/01/2017 4:02 PM) Only the most recent of 3 results within the time period is included. Component Value Ref Range Lipase 35 8 - 78 U/L Specimen Performing Laboratory Blood - Arm, Right [address] [address] * Hepatic function panel (07/01/2017 4:02 PM) [...] Specimen Performing Laboratory Blood - Arm, [place] [address] Narrative Specimen moderately lipemic * Manual Differential (07/01/2017 4:38 AM) Only the most recent of 2 results within the time period is included. Component Value Ref Range Total Counted WBC Morphology Normal Platelet Morphology Normal RBC Morphology Normal Specimen Performing Laboratory Blood - Arm, [place] [address] * Clostridium difficile GDH Toxin (06/30/2017 9:04 PM) Component Value Ref Range C. Difficle Toxin Negative Negative C. Difficile GDH Antigen NegativeComment: No indication of Clostridium Negative difficile infection and no colonization. Discontinue enteric isolation and therapy. Specimen [place] [address] Narrative Testing performed by Alere Rapid Cassette Assay.For GDH, published sensitivity of the assay is 98.7% compared to cytotoxicity testing.For Toxin AB, published sensitivity is 87.8% and specificity 99.4% compared to cytotoxicity testing. Verification of kit performance was done by the [facility] Microbiology Lab prior to clinical use. Testing performed by Alere Rapid Cassette Assay.For GDH, published sensitivity of the assay is 98.7% compared to cytotoxicity testing.For Toxin AB, published sensitivity is 87.8% and specificity 99.4% compared to cytotoxicity testing. Verification of kit performance was done by the [facility] Microbiology Lab prior to clinical use. * STOOL PATH CHARGE (06/30/2017 9:04 PM) Component Value Ref Range Pathogen exam charged Done Specimen [place]forming [place] [address] * Stool culture + Shiga toxin (06/30/2017 9:04 PM) Component Value Ref Range Result No Salmonella, Shigella or Campylobacter isolated Specimen Performing [place] [address] Narrative * Phosphorus (06/30/2017 1:04 AM) Only the most recent of 2 results within the time period is included. Component Value Ref Range Phosphorus 2.2 (L)Comment: Specimen markedly hemolyzed 2.3 - 4.7 mg/dL Specimen Performing Laboratory Blood [address] [address] * Hemoglobin A1c (06/30/2017 1:04 AM) Component Value Ref Range Hemoglobin A1C 13.7 (H) 4.3 - 6.1 % Specimen Performing [place] [address] * Lipid panel (06/30/2017 1:04 AM) Component Value Ref Range Triglycerides 5383Comment: Specimen markedly hemolyzed mg/dL Cholesterol 451Comment: Specimen markedly hemolyzed mg/dL HDL 12 mg/dL Specimen Performing [place] [address] Narrative Calculated LDL not valid if triglyceride >400 mg/dL Triglyceride Reference Range: Low Risk <150 [id number] High Risk 200-499 Very High Risk>=500 Cholesterol Reference Range: Low Risk <200 [id number] High Risk>240 HDL Cholesterol Reference Range: Low Risk >=60 High Risk <40 LDL Cholesterol Reference Range: Optimal<100 Near Fjamymu777-116 [id number] Aebd135-184 Very High >=190 Specimen markedly lipemic * CT abdomen/pelvis with IV contrast (06/29/2017 9:46 PM) Specimen Performing Laboratory [place] Narrative FINAL REPORT CT, ABDOMEN \\T\\ PELVIS, [...] MD Report Verified Date/Time:06/29/2017 21:51:53 Reading Location: [address] Transitional Reading Room Procedure Note Interface, [...] Report Verified Date/Time: 06/29/2017 21:51:53 Reading Location: [address] Transitional Reading Room * CT brain [...] MD Report Verified Date/Time:06/29/2017 19:36:58 Reading Location: [facility] Radiology Reading Room Procedure Note Interface, External [...] Report Verified Date/Time: 06/29/2017 19:36:58 Reading Location: [facility] Radiology Reading Room * Critical Care (06/29/2017 [...] Specimen Performing Laboratory Blood - Arm, [place] [address] * POC-Lactic Acid, Venous (06/29/2017 3:43 PM) Component Value Ref Range POC-Lactic Acid, Venous 2.4 (H)Comment: TESTED AT [address] 0.9 - 1.7 mmol/L [place] [address] Specimen Performing [place] [address] * Urinalysis w/Microscopic + Reflex to Culture - Cath (06/29/2017 2:54 PM) Component Value Ref Range Color, UA Light Yellow Clarity, UA Clear Specific [place], UA 1.019 1.001 - 1.035 pH, UA [...] Specimen Performing Laboratory Urine - Urine, [place] [address] * Urine culture (06/29/2017 2:54 PM) Component Value Ref Range Result >100,000 col/mL skin omar Specimen Performing [place] [address] * Comprehensive metabolic panel (06/29/2017 2:54 PM) [...] FOR DIALYSIS PATIENTS. Specimen Performing Laboratory Blood [address] [address] Narrative Specimen markedly lipemic * PT/PTT (04/21/2017 11:23 AM) Component Value Ref Range Protime 14.5 11.7 - 14.7 seconds INR 1.1 <=5.9 PTT 24.5 22.5 - 36.0 seconds Specimen Performing Laboratory Blood [address] [address] Narrative RECOMMENDED COUMADIN/WARFARIN INR THERAPY RANGES STANDARD DOSE: 2.0 - 3.0 Includes: PROPHYLAXIS for venous thrombosis, systemic embolization; TREATMENT for venous thrombosis and/or pulmonary embolus. HIGH RISK: Target INR is 2.5-3.5 for patients with mechanical heart valves. * MR spine lumbar without IV contrast (09/15/2016 2:37 PM) Specimen Performing Laboratory [place] Narrative FINAL REPORT MRI lumbar spine without [...] MD Report Verified Date/Time:09/15/2016 14:45:18 Reading Location: [address] Neuro Reading Room Procedure Note Interface, [...] Report Verified Date/Time: 09/15/2016 14:45:18 Reading Location: [facility] B1 C013V Neuro Reading Room after 08/21/2016
--- OUTSIDE RECORDS SUMMARY | 2017-08-22 18:38 | XMS REPORT | Continuity of Care Document ---
Author Author [facility] Organization [facility] Address [address] [place] [address] Phone Unavailable Care Team Providers Care Multimedia Programmer Name Role Phone NONSTAFF PCP Unavailable Insurance Providers Guarantor Pedro Luis Barnhart Address [address] [place] [address] [facility] Policy Number [id number] Subscriber's Name Pedro Luis Barnhart Relationship 18 Self / Same As Patient Group Number [id number] Group Name [facility] Effective Date 16 Advance Directives Directive Response Recorded Date/Time Does the patient have an advance directive? No 10/01/16 9:42am If yes, is advance directive on file with [facility]? No 10/01/16 9:42am If not on file with [facility] will patient provide a copy? No 03/04/17 11:31pm Do you have a Directive to Physician? No 08/22/17 1:58pm Do you have a Medical Power of Fitness Manager? No 08/22/17 1:58pm Do you have an out of hospital Do Not Resuscitate Order? No 08/22/17 1:58pm Do you have any special needs we should be aware of? No 08/22/17 1:58pm Do you have a support person here with you today? No 08/22/17 1:58pm Did patient receive Notice of Privacy Practices? Yes 08/22/17 1:58pm Did patient receive patient rights and responsibilities? Yes 08/22/17 1:58pm Problems Medical Problem Onset Date Status Abdominal [...] Mg Oral Bedtime 60 Cap Hydrocodone Bit/Acetaminophen (Nisula 10-325 Tablet) 1 Each Tablet Every 6 [...] Applicable Smoking Status Start Date Stop Date Never Smoker Hospital Discharge Instructions No hospital discharge instruction information available. Plan of Care Discharge Date 08/22/17 2:21pm Disposition HOME, SELF-CARE Condition at Discharge Stable Forms Provided Work/School Excuse Prescriptions See Medication Section Functional Status No functional status information available. Allergies, Adverse Reactions, Alerts Allergen Type Severity Reaction Status Last Updated Sulfamethoxazole Allergy Unknown Active 01/07/16 Trimethoprim Allergy Unknown Active 01/07/16 Immunizations No immunization information available. Vital Signs Acute Vital Signs Vital Response Date/Time Temperature (Fahrenheit) 98.2 degrees F (97.6 - 99.5) 11/23/2016 12:41am Pulse Pulse Rate (adult) 73 bpm (60 - 90) 08/22/2017 2:26pm Respiratory Rate 16 bpm (12 - 24) 08/22/2017 2:26pm Blood Pressure 118/62 mm Hg 08/22/2017 2:26pm Height 6 ft 5 in 08/22/2017 2:16pm Weight 390 lb 08/22/2017 2:16pm Body Mass Index 46.2 kg/m^2 08/22/2017 2:16pm Results Laboratory Results Test Name Result Units Flags Reference Collection Date/Time Result Date/ Time Comments Lipase 16 U/L 8-78 12/02/2016 11:20am 12/02/2016 [...] CLEAR 06/20/2017 1:38pm 06/20/2017 2:51pm Urine Specific [place] 1.010 1.010-1.025 06/20/2017 1:38pm 2017 2:51pm Urine [...] 06/20/2017 3:21pm Procedures Procedure Status Date Provider(s) Testicular ultrasound Active 03/04/17 JASVIR BUENO MD Dup-scan artl casi abdl/pel/scrot&/RPR orgn lmt Active 03/04/17 JASVIR BUENO MD Encounters Encounter Location Arrival/Admit Date Discharge/Depart Date Attending Provider Registered Emergency Room [facility] 08/22/17 2:00pm NETO MAAT MD Departed Emergency Room [facility] 06/20/17 11:38am 06/20 4:31pm VALERIE GAINES MD Departed Emergency Room [facility] 03/06/17 11:10am 03/06 12:28pm EFRAÍN GUZMAN MD Departed Emergency Room [facility] 03/04/17 7:57pm 11:29pm JASVIR BUENO MD Departed Emergency Room [facility] 12/02/16 10:59am 12/02 1:15pm EFRAÍN GUZMAN MD Departed Emergency Room [facility] 11/23/16 12:04am 11/23 1:45am PEDRO LUIS VENCES MD
[2017-08-22 21:30] VITALS: BP 119/75
[2017-08-22 21:47] VITALS: BP 119/75
[2017-08-22] MEDS: MORPHINE SULFATE 2 MG/ML SYR IV PRN (22:26)
[2017-08-23] VITALS (7 sets, daily range): BP systolic 100–142; BP diastolic 64–75
[2017-08-23 01:27] LABS: CREATINE KINASE 174 IU/L (30-200)
[2017-08-23] MEDS: MORPHINE SULFATE 2 MG/ML SYR IV PRN ×6 (02:04→22:24)
[2017-08-23] MEDS ORDERED: ALBUTEROL SULFATE HFA 8GM INHALATION AEROSOL INH SCH (06:45)
[2017-08-23] MEDS ORDERED: HYDROCODONE/APAP 10MG-325MG TAB PO PRN ×2 (06:45→07:00)
[2017-08-23] MEDS ORDERED: HYDROXYZINE HCL 25 MG TAB PO PRN (06:45)
[2017-08-23] MEDS: SODIUM CHLORIDE 0.9% 1000ML 1,000 ML IV SCH ×2 (07:00→19:30)
--- NOTE | 2017-08-23 07:06 | History and Physical ---
A 47-year-old gentleman comes in with chest pain. HISTORY OF PRESENT ILLNESS: This is Pedro Luis Sandoval with a history of diabetes mellitus, hypertension, hypothyroidism, was in his usual state of health until the day prior to admission. The patient started with chest pain noted as retrosternal and radiating to the neck and also the left axilla. The patient's chest pain was escalating in nature, and then it was addressed. The patient started to have 3/10 intensity and then went all the way to 10. The patient came into the emergency room and was admitted for rule out acute coronary syndrome. PAST MEDICAL HISTORY: Hypertension, history of hyperlipidemia, history of chronic low back pain, history of coronary disease in the past, history of neuropathy, diabetes with neuropathy, history of hypothyroidism, history of reflux esophagitis, and also history of depression and kidney stones. MEDICATIONS 1. ProAir. 2. Amlodipine 10 mg. 3. Atorvastatin 40 mg. 4. Baclofen 10 mg. 5. Carvedilol 3.125 mg. 6. Clopidogrel 75 mg. 7. Clotrimazole 15 g. 8. Fenofibrate 160 mg. 9. Gabapentin 300 mg. 10. Hydrocodone 10 per 325 mg. 11. Hydralazine 25 mg q.8 h. as needed. 12. Levothyroxine 50 mg. 13. Lisinopril 10 mg. 14. 10 mg. 15. Pantoprazole 40 mg. 16. Sertraline 50 mg. 17. Ursodiol 250 mg q.a.m. 18. Levemir 70 units subcutaneous q.12 h. SURGICAL HISTORY: Includes history of recent pancreatic tumor removal, reattachment of the sphincter, resection with reconstruction, bilateral knee arthroscopic surgeries. The patient also has a history of follicular non-Hodgkin's lymphoma, which has done chemotherapy too. FAMILY HISTORY: Father with hypertension and diabetes. SOCIAL HISTORY: Occasional ETOH. No IV drug abuse. The patient is in a high stress job. 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 REVIEW OF SYSTEMS: Positive for chest pain. Positive for some shortness of breath. No nausea, vomiting or diarrhea. No constipation or rectal bleeding. No hematochezia. No hematemesis. No diplopia. No blurry vision. No headaches. PHYSICAL EXAM GENERAL: The patient is alert, alert and oriented times 3. VITAL SIGNS: Temperature is 96.5, pulse 75, respirations 20, blood pressure 119/75. HEENT: Normocephalic and atraumatic. Pupils reactive to light and accommodation. The patient has a bullous neck. CV: S1 and S2 distant. Regular rate and rhythm. ABDOMEN: Nontender and nondistended. LUNGS: Decreased air entry into the lung bases. Otherwise, normal. ABDOMEN: Nontender and nondistended. EXTREMITIES: No clubbing. Trace edema present. LABORATORY VALUES: Initial white count was 6.76 with no left shift. Chemistry: Creatinine was 1.62. EGFR of 44. Creatinine kinase was 276. Troponin was less than 0.01. ASSESSMENT 1. Chest pain: Rule out acute coronary syndrome. 2. Hyperlipidemia. 3. Hypertension. 4. Diabetes mellitus. PLAN: Continue with home medications. Since the creatinine is elevated, we are able to bolus a liter of fluid right now. Suggest cardiac cath with Dr. Gallagher. Further recommendations per clinical course. Will monitor his thyroid too, and also add a lipid panel to his panel. Further recommendations per clinical course. Will continue monitoring the patient. Job#: [id number] FRANKI
[2017-08-23 07:12] LABS: CHOL/HDL RATIO 8.4 (3.9-4.7); CHOLESTEROL 159 MD/DL (0-199); CREATINE KINASE 156 IU/L (30-200); HDL CHOLESTEROL 19 MG/DL (40-60); TRIGLYCERIDES 609 MG/DL (0-149)
[2017-08-23] MEDS ORDERED: SODIUM CHLORIDE 0.9% 1000ML 500 ML IV SCH ×2 (07:15→10:00)
[2017-08-23] MEDS: ASPIRIN 325 MG TAB EC PO SCH (08:30)
[2017-08-23] MEDS: CARVEDILOL 12.5 MG TAB PO SCH ×2 (08:30→20:30)
[2017-08-23] MEDS: ACETYLCYSTEINE 20% INHAL SOLN 30 ML VIAL PO SCH ×2 (08:31→17:38)
[2017-08-23] MEDS: FENOFIBRATE 48 MG TAB PO SCH (08:31)
[2017-08-23] MEDS: PANTOPRAZOLE SOD 40 MG TABEC PO SCH (08:31)
[2017-08-23] MEDS: LISINOPRIL 20 MG TAB PO SCH (08:31)
[2017-08-23] MEDS: CLOPIDOGREL BISULFATE 75 MG TAB PO SCH (08:31)
[2017-08-23] MEDS: SERTRALINE HCL 50 MG TAB PO SCH (08:31)
[2017-08-23] MEDS: AMLODIPINE BESYLATE 10 MG TAB PO SCH (08:31)
[2017-08-23] MEDS: INSULIN DETEMIR 100 UNIT/ML PEN SQ SCH ×2 (08:31→20:31)
[2017-08-23] MEDS ORDERED: FENOFIBRATE 48 MG PO SCH (09:00)
[2017-08-23] MEDS ORDERED: LEVOTHYROXINE SODIUM 50 MCG TAB PO SCH (09:00)
[2017-08-23] MEDS ORDERED: NON-FORMULARY MEDICATION (Atorvastatin Calcium 40 MG) PO SCH (09:00)
[2017-08-23] MEDS ORDERED: CARVEDILOL 3.125 MG TAB PO SCH (09:00)
[2017-08-23] MEDS ORDERED: LISINOPRIL 10 MG TAB PO SCH (09:00)
[2017-08-23] MEDS ORDERED: INSULIN DETEMIR LEVEMIR SQ SCH (09:00)
--- NOTE | 2017-08-23 09:30 | Consultation ---
DATE OF CONSULTATION: August 23, 2017 CARDIOLOGY CONSULTATION REASON FOR CONSULTATION: Chest pain. HPI: This is a morbidly obese 47-year-old male that presented with chest pain. According to the patient, yesterday he started having a sharp tight pressure on the left side of the chest that felt like an elephant was sitting on his chest. He could not breathe on a scale of 10/10 radiating to his left jaw and left axilla. He stated that the pain started increasing that he decided to come into the emergency room for evaluation. He has a history of CAD with cardiac catheterization in 2013 with no intervention. He also has a history of diabetes and hypertension, and follows up with doctors at [facility]. He denied any palpitations, any nausea, vomiting, any diaphoresis, or headache. His troponin was negative times 3. EKG showed normal sinus rhythm with no S/T abnormalities. PAST MEDICAL HISTORY: Hypertension, hyperlipidemia, CAD, lymphoma, cellulitis infection that resulted in necrotizing fasciitis and compartment syndrome on the left leg, history of pancreatitis, obese, hypothyroidism, chronic back pain, GERD kidney stone, pancreatic tumor, and depression. PAST SURGICAL HISTORY: Cardiac catheterization in 2013 with no intervention, hand surgery, tonsillectomy, pancreatic tumor removal, bilateral knee surgery, right elbow reconstructive surgery, status post fasciotomy due to compartment syndrome and necrotizing fasciitis, chemotherapy for lymphoma. FAMILY HISTORY: Positive for hypertension and CAD. SOCIAL HISTORY: He quit smoking and drinking. He lives at home with the . MEDICATION: See med list. ALLERGIES: SEE CHART. REVIEW OF SYSTEMS: Negative except those mentioned above. PHYSICAL EXAMINATION VITALS: Temperature 98, heart rate 79, blood pressure 109/64, respirations 16, oxygen saturation 96% on 2 L nasal cannula. GENERAL: He is awake, alert and morbidly obese. HEENT: Mucous membrane moist. NECK: Supple. LUNGS: Bilateral clear to auscultation. CARDIOVASCULAR: S1 and S2 present. ABDOMEN: Soft. NEUROLOGICAL: Intact. EXTREMITIES: No edema. LABS: Sodium 139, potassium 4.4, chloride 101, CO2 28, BUN 23, creatinine 1.69, glucose 171. White blood cells 6.76, hemoglobin 15.7, hematocrit 44.2, and platelets 151,000. IMPRESSION 1. Chest pain. 2. Coronary artery disease. 3. Obesity. 4. Renal insufficiency. 5. Diabetes. 6. Hypertension. 7. Hypothyroidism. 8. History of chronic back pain. ASSESSMENT AND PLAN: Cardiac enzymes times 3 were negative. Due to his presenting symptoms, medical history and comorbidities, will go ahead and schedule him for cardiac catheterization to rule out any blockage or ischemia. Procedure explained to him and he agreed. Will get an echocardiogram to reassess the LV and valve function. Will continue home medications. Keep him n.p.o. after midnight. Get a consent for cardiac catheterization. Will put him on Mucomyst for renal protection and some IV fluids. Cardiac workup pending clinical course. Thank you for this consultation. DICTATED BY REJI PEREZ NP Job#: [id number] FRANKI CONTRERAS
--- NOTE | 2017-08-23 12:31 | Diagnostic Imaging Report ---
PROCEDURE: A single AP view of the chest. COMPARISON: None. INDICATIONS: CHEST PAIN FINDINGS: Lines/tubes: None. Lungs: Hypoinflated lungs.. There is no evidence of pneumonia or pulmonary edema. Pleura: There is no pleural effusion or pneumothorax. Heart and mediastinum: The heart and the mediastinum are unremarkable. Bones: No acute bony abnormality. IMPRESSION: 1. Hypoinflated lungs, without acute cardiopulmonary disease. Omero Weinberg M.D. Dictated by: Omero Weinberg M.D. on 08/23/2017 at 12:34 Electronically approved by: Omero Weinberg M.D. on 08/23/2017 at 12:34
[2017-08-23 16:12] LABS: CREATINE KINASE MB 1.9 ng/mL (0-5.0)
[2017-08-23] MEDS ORDERED: BACLOFEN 10 MG TAB PO SCH (21:00)
[2017-08-23] MEDS ORDERED: GABAPENTIN 300 MG CAP PO SCH (21:00)
[2017-08-23] MEDS ORDERED: ATORVASTATIN 40 MG TAB PO SCH (21:00)
[2017-08-24] VITALS (11 sets, daily range): BP systolic 112–164; BP diastolic 60–93
[2017-08-24] MEDS ORDERED: LEVOTHYROXINE SODIUM 100 MCG TAB PO SCH (06:00)
[2017-08-24 06:03] LABS: BASOPHILS % 0.7 % (0.0-1.0); EOSINOPHILS # (AUTO) 0.1 (0.0-0.4); EOSINOPHILS % 2.7 % (0.0-6.0); HEMATOCRIT 44.7 % (38.2-49.6); HEMOGLOBIN 14.9 g/dL (14.0-18.0); LYMPHOCYTES # (AUTO) 1.6 (1.0-3.2); MEAN CORPUSCULAR HEMOGLOBIN 31.5 pg (28-32); MEAN CORPUSCULAR HGB CONC 33.3 g/dL (31-35); MEAN CORPUSCULAR VOLUME 94.5 fL (81-99); MONOCYTES # (AUTO) 0.6 (0.2-0.8); MONOCYTES % 14.3 % (4.4-11.3); NEUTROPHILS # (AUTO) 2.1 (2.1-6.9); NEUTROPHILS % 46.4 % (38.7-80.0); PLATELET COUNT 162 x10e3/uL (140-360); RED BLOOD COUNT 4.73 x10e6/uL (4.3-5.7); RED CELL DISTRIBUTION WIDTH 13.2 % (11.7-14.4)
[2017-08-24] MEDS ORDERED: MIDAZOLAM HCL 2 MG/2 ML VIAL ONE (06:26)
[2017-08-24] MEDS ORDERED: LIDOCAINE HCL 2% LOCAL 20 ML VIAL ONE (06:26)
[2017-08-24] MEDS ORDERED: FENTANYL CITRATE/PF 100MCG/2 ML INJ ONE (06:26)
[2017-08-24] MEDS ORDERED: HEPARIN SOD/SOD CHLORIDE 2,000 ML ONE (06:27)
[2017-08-24] MEDS ORDERED: SODIUM CHLORIDE 0.9% 1000ML 1,000 ML ONE (06:27)
[2017-08-24] MEDS ORDERED: IOPAMIDOL 370 MG/ML 200 ML INFUS..BTL INJ ONE (06:27)
[2017-08-24 06:29] LABS: INR 1.21; PROTHROMBIN TIME 14.4 seconds (11.9-14.5)
[2017-08-24 06:38] LABS: ANION GAP 12.1 mmol/L (8-16); BLOOD UREA NITROGEN 26 mg/dL (7-26); BUN/CREATININE RATIO 17 (6-25); CALCIUM 9.4 mg/dL (8.4-10.2); CARBON DIOXIDE 29 mmol/L (22-29); CHLORIDE 106 mmol/L (98-107); CHOL/HDL RATIO 7.4 (3.9-4.7); CHOLESTEROL 170 MD/DL (0-199); EST GLOMERULAR FILTRATION RATE 50 ML/MIN (60-); GLUCOSE 171 mg/dL (74-118); HDL CHOLESTEROL 23 MG/DL (40-60); POTASSIUM 4.1 mmol/L (3.5-5.1); SODIUM 143 mmol/L (136-145); TRIGLYCERIDES 479 MG/DL (0-149)
[2017-08-24] MEDS ORDERED: VERAPAMIL HCL 2.5 MG/ML 2 ML VIAL ONE (07:18)
[2017-08-24] MEDS: MORPHINE SULFATE 2 MG/ML SYR IV PRN ×2 (09:50→15:36)
[2017-08-24] MEDS: SODIUM CHLORIDE 0.9% 1000ML 1,000 ML IV SCH (10:26)
[2017-08-24] MEDS: AMLODIPINE BESYLATE 10 MG TAB PO SCH (10:26)
[2017-08-24] MEDS: LISINOPRIL 20 MG TAB PO SCH (10:26)
[2017-08-24] MEDS: SERTRALINE HCL 50 MG TAB PO SCH (10:26)
[2017-08-24] MEDS: CARVEDILOL 12.5 MG TAB PO SCH (10:26)
[2017-08-24] MEDS: PANTOPRAZOLE SOD 40 MG TABEC PO SCH (10:26)
[2017-08-24] MEDS: CLOPIDOGREL BISULFATE 75 MG TAB PO SCH (10:26)
[2017-08-24] MEDS: ASPIRIN 325 MG TAB EC PO SCH (10:26)
[2017-08-24] MEDS: ACETYLCYSTEINE 20% INHAL SOLN 30 ML VIAL PO SCH ×2 (10:26→16:53)
[2017-08-24] MEDS: FENOFIBRATE 48 MG TAB PO SCH (10:26)
[2017-08-24] MEDS: INSULIN DETEMIR 100 UNIT/ML PEN SQ SCH (10:28)
--- NOTE | 2017-08-24 14:01 | Operative Report ---
DATE OF PROCEDURE: August 24, 2017 PROCEDURES PERFORMED 1. Left heart catheterization. 2. Selective coronary angiogram. 3. Left ventriculogram. INDICATIONS: Unstable angina. DESCRIPTION OF PROCEDURE: After informed consent, patient was brought to the cardiac catheterization laboratory and placed on the table. His right wrist was painted and draped in a sterile fashion. Lidocaine was injected for local anesthesia. The right radial artery was accessed by Seldinger technique, and a 6-Luxembourgish sheath was placed in the right radial artery. The patient was given a radial cocktail prior to the start of procedure. Left main was cannulated using a 5-Luxembourgish [place] catheter. Coronary angiogram was performed and images obtained in multiple views. Right coronary artery was cannulated using the same [place] catheter. Coronary angiogram was performed and images obtained in multiple views. LV-gram was performed using a pigtail catheter. The catheter was exchanged over a Wooly wire. The patient tolerated the procedure without any complications. REPORT LEFT MAIN: Normal caliber with no significant stenosis. LEFT ANTERIOR DESCENDING: Normal caliber with luminal irregularities. First diagonal branch has about a 20% proximal lesion. LEFT CIRCUMFLEX: A nondominant vessel and is normal caliber with luminal irregularities. RIGHT CORONARY ARTERY: Large dominant vessel that is tortuous. Has about 30% mid-lesion. LV-GRAM: Normal LV function. Overall ejection fraction 60%. HEMODYNAMICS: Aortic pressure is 144/75. LV pressure is 144/4. LVEDP is 14. PLAN: Medical management. Job#: [id number] RI
== END 2017-08-24 19:45 | disposition home or self-care (01) ==
LOC: ER 14:00 → ERHOLD 18:34 → IMCU 20:37
PROVIDERS: ADMIT Family Medicine; ATTEND Family Medicine
DX: R07.9 Chest pain, unspecified (principal); I25.10 Atherosclerotic heart disease of native coronary artery without angina pectoris; I10 Essential (primary) hypertension; E03.9 Hypothyroidism, unspecified; E11.42 Type 2 diabetes mellitus with diabetic polyneuropathy; E78.5 Hyperlipidemia, unspecified; G89.29 Other chronic pain; Z83.3 Family history of diabetes mellitus; Z82.49 Family history of ischemic heart disease and other diseases of the circulatory system; E66.9 Obesity, unspecified; N28.9 Disorder of kidney and ureter, unspecified; Z68.42 Body mass index [BMI] 45.0-49.9, adult; E66.01 Morbid (severe) obesity due to excess calories; G47.30 Sleep apnea, unspecified
CPT/HCPCS: 36415 ×3; 71045; 77002; 80048; 80053; 80061 ×2; 82550 ×2; 82553 ×2; 82948 ×2; 83880; 84443; 84484 ×2; 85025 ×2; 85610; 93005 ×2; 93306; 93458; 96372; 99284; C1769; G0378 ×3; J2001; J2250; J2270 ×3; J7030 ×2; Q9967; S0164 ×2; 36140; 93452

== ENCOUNTER 2017-10-30 19:55 | Emergency (ER) | payer BC ==
[~2017-10-30] VITALS: Ht 196.8 cm; Wt 177.4 kg
[2017-10-30] MEDS ORDERED: HYDROCODONE/APAP 10MG-325MG TAB PO STA (20:12)
[2017-10-30] MEDS ORDERED: KETOROLAC TROMETHAMINE 60 MG/2 ML VIAL IM ONE (20:15)
--- NOTE | 2017-10-30 22:07 | Diagnostic Imaging Report ---
Exam: AP view of the chest and right rib series Indication: Fall in bathroom, right rib, right chest and clavicle pain Comparison: AP chest June 20, 2017 Findings: Normal appearance of the chest. No evidence of a fracture. Impression: No acute findings Signed by: Dr. Laura Donahue M.D. on 10/30/2017 10:04 PM
[2017-10-30] MEDS ORDERED: ACETAMINOPHEN/CODEINE 300MG - 30MG TAB PO STA (22:50)
== END 2017-10-30 23:14 | disposition home or self-care (01) ==
LOC: ER 19:55
DX: S20.211A Contusion of right front wall of thorax, initial encounter (principal); W01.0XXA Fall on same level from slipping, tripping and stumbling without subsequent striking against object, initial encounter; Y92.511 Restaurant or cafe as the place of occurrence of the external cause
CPT/HCPCS: 71101; 93005; 99283; J1885

== ENCOUNTER 2017-11-03 03:44 | Emergency (ER) | payer BC ==
[~2017-11-03] VITALS: Ht 196.8 cm; Wt 177.4 kg
[2017-11-03] MEDS ORDERED: ONDANSETRON HCL INJ 2 MG/ML VIAL IV STA (03:48)
[2017-11-03] MEDS ORDERED: PANTOPRAZOLE 40 MG 10ML VIAL IV STA (03:48)
[2017-11-03 03:59] LABS: BASOPHILS % 0.5 % (0.0-1.0); EOSINOPHILS # (AUTO) 0.1 (0.0-0.4); EOSINOPHILS % 1.7 % (0.0-6.0); HEMATOCRIT 48.3 % (38.2-49.6); HEMOGLOBIN 16.8 g/dL (14.0-18.0); LYMPHOCYTES # (AUTO) 1.1 (1.0-3.2); MEAN CORPUSCULAR HEMOGLOBIN 30.9 pg (28-32); MEAN CORPUSCULAR HGB CONC 34.8 g/dL (31-35); MEAN CORPUSCULAR VOLUME 88.8 fL (81-99); MONOCYTES # (AUTO) 0.4 (0.2-0.8); MONOCYTES % 5.6 % (4.4-11.3); NEUTROPHILS # (AUTO) 4.8 (2.1-6.9); NEUTROPHILS % 74.6 % (38.7-80.0); PLATELET COUNT 141 x10e3/uL (140-360); RED BLOOD COUNT 5.44 x10e6/uL (4.3-5.7); RED CELL DISTRIBUTION WIDTH 13.2 % (11.7-14.4)
[2017-11-03] MEDS ORDERED: SODIUM CHLORIDE 0.9% 500ML 500 ML IV ONE (04:00)
[2017-11-03 04:16] LABS: BILIRUBIN,URINE NEGATIVE (NEGATIVE); CLARITY,URINE CLEAR (CLEAR); COLOR,URINE YELLOW (YELLOW); KETONES,URINE NEGATIVE (NEGATIVE); LEUKOCYTE ESTERASE ,URINE NEGATIVE (NEGATIVE); NITRITE,URINE NEGATIVE (NEGATIVE); PROTEIN,URINE DIPSTICK 1+ (NEGATIVE); URINE UROBILINOGEN 0.2 mg/dL (0.2 - 1)
[2017-11-03 04:18] LABS: ALBUMIN 4.1 g/dL (3.5-5.0); CALCIUM 9.7 mg/dL (8.4-10.2); CREATININE, SERUM 1.6 mg/dL (0.72-1.25)
[2017-11-03 04:29] LABS: BACTERIA,URINE RARE /HPF; EPITHELIAL CELLS,URINE RARE /LPF; WBC,URINE (MAN) 0-5 /HPF (0-5)
--- NOTE | 2017-11-03 04:36 | Diagnostic Imaging Report ---
EXAM: ABDOMEN ACUTE SERIES W/PA CXR DATE: 11/03/2017 3:48 AM Time stamp on exam: [id number] hours INDICATION: Vomiting, diarrhea COMPARISON: None FINDINGS: LINES/TUBES: None BOWEL PATTERN: No evidence for obstruction. There is evidence of small bowel wall thickening noted in the left hemiabdomen SOFT TISSUES: No abnormal calcifications. No mass effect. LUNGS: The lungs are clear. BONES: No acute findings. IMPRESSION: 1. Nonobstructed bowel gas pattern. 2. However, there is thickening of the small bowel folds suggestive of enteritis 3. No acute intrathoracic abnormality. Signed by: Dr. Catrachito Wright M.D. on 11/03/2017 4:32 AM
[2017-11-03 04:40] VITALS: BP 134/76
== END 2017-11-03 04:45 | disposition home or self-care (01) ==
LOC: ER 03:44
DX: R11.2 Nausea with vomiting, unspecified (principal); R19.7 Diarrhea, unspecified; I10 Essential (primary) hypertension; E11.9 Type 2 diabetes mellitus without complications; I25.10 Atherosclerotic heart disease of native coronary artery without angina pectoris; E78.5 Hyperlipidemia, unspecified; Z85.72 Personal history of non-Hodgkin lymphomas
CPT/HCPCS: 36415; 74022; 80053; 81001; 82150; 83690; 85025; 99284; J2405; J7040

== ENCOUNTER 2018-02-10 14:00 | Observation (INO) | payer BC ==
[~2018-02-10] VITALS: Ht 170.2 cm; Wt 174.7 kg
--- OUTSIDE RECORDS SUMMARY | 2018-02-10 14:04 | XMS REPORT | Clinical Summary ---
Author Author [facility] Address Unknown Phone Unavailable Care Team Providers Care Icd 9 Coder Name Role Phone Chuck Barker Unavailable Fili Bentley MD PCP Unavailable Allergies Comments Active Allergy Reactions Severity Noted Date Sulfamethoxazole-Trimetho Itching High 10/16/2012 prim Medications End Date Status Medication Sig Dispensed Refills Start Date Active clotrimazole-betamethason Apply to 0 e (LOTRISONE) 1-0.05 % affected area 6 cream daily PRN rash. Active pantoprazole (PROTONIX) Take 40 mg by 0 40 MG tablet mouth daily. 6 Active albuterol HFA (VENTOLIN Inhale 2 0 HFA) 90 mcg/actuation puffs by 5 inhaler mouth via inhaler every 6 (six) hours as needed for Wheezing or Shortness of Breath . Active levothyroxine (SYNTHROID, TAKE 1 TABLET 0 LEVOTHROID) 100 MCG BY MOUTH 6 tablet DAILY. Active ursodiol (ACTIGALL) 250 TAKE 1 TABLET 0 mg tablet BY MOUTH 3 6 TIMES A DAY. Active BD Ultra-Fine [place] Use as 100 each 0 Insulin Pen [place] 4 mm directed. 7 x 32 G Dispense as written, do not substitute. Brand medically necessary.. Active baclofen (LIORESAL) 10 MG Take 10 mg by 0 tablet mouth every night as needed. Active spironolactone Take 25 mg by 0 (ALDACTONE) 25 MG tablet mouth daily. Active valsartan-hydrochlorothia Take 1 tablet 0 zide (DIOVAN-HCT) 320-25 by mouth mg per tablet daily. Active carvedilol (COREG) 25 MG Take 25 mg by 0 tablet mouth 2 (two) times daily with breakfast and dinner. Active ketoconazole (NIZORAL) 2 Apply 30 g 0 % cream topically 2 8 (two) times daily as needed. Active INSULIN LISPRO Inject 80 0 PROTAMIN/LISPRO (HUMALOG Units 8 MIX 75-25 KWIKPEN SUBQ) subcutaneousl y 3 (three) times daily before meals . Active fenofibrate Take 160 mg 0 (TRIGLIDE,LOFIBRA) 160 MG by mouth 8 tablet daily . Active JARDIANCE 25 mg tablet Take 25 mg by 0 mouth daily . 8 Active amLODIPine (NORVASC) 10 Take 10 mg by 3 MG tablet mouth daily. 8 Active nitroglycerin (NITROSTAT) PLACE 1 PILL 0 0.3 MG SL tablet UNDER TONGUE 8 EVERY 5 MINUTES NEEDED IF PAIN PERSISTS GREATER THAN 15 MINS., CALL [address] 0 (AMLACTIN) 12 % cream rectally 8 daily. Active LYRICA 75 mg capsule Take 1-2 0 tablets by 8 mouth every night as needed. Active LIPITOR 40 mg tablet Take 1 tablet 0 by mouth 8 daily. Active acetaminophen-codeine Take 1 tablet 0 (TYLENOL #3) 300-30 mg by mouth 8 per tablet every 4 (four) hours as needed for Pain. Active clopidogrel (PLAVIX) 75 Take 1 tablet 3 mg tablet by mouth 8 daily. Active sertraline (ZOLOFT) 100 Take 1 tablet 0 MG tablet by mouth 8 daily. Active lisinopril Take 1 tablet 0 (PRINIVIL,ZESTRIL) 10 MG by mouth tablet daily. Active testosterone cypionate Inject 1 mL 0 (DEPOTESTOTERONE intramuscular 8 CYPIONATE) 200 mg/mL ly once every injection 2 weeks. Active cetirizine Take 1 tablet 0 HCl/pseudoephedrine by mouth (ZYRTEC-D ORAL) daily. 08/17/2017 Discontinued atorvastatin (LIPITOR) 40 Take 40 mg by 0 MG tablet mouth daily . 6 08/17/2017 Discontinued clopidogrel (PLAVIX) 75 Take 75 mg by 0 mg tablet mouth daily . 5 06/30/2017 Discontinued methocarbamol Take 500 mg 0 (ROBAXIN-750) 750 MG by mouth. tablet 08/17/2017 Discontinued butalbital-acetaminophen- Take 1 tablet 0 caffeine (FIORICET, by mouth. 6 ESGIC) 50-325-40 mg per tablet 08/17/2017 Discontinued mometasone (NASONEX) 50 Inhale 2 0 mcg/actuation nasal spray sprays by 6 mouth via inhaler. 01/31/2018 Discontinued sertraline (ZOLOFT) 25 MG TAKE 1 TABLET 0 tablet BY MOUTH 7 DAILY. 01/31/2018 Discontinued hydrOXYzine (ATARAX) 25 Take 1 tablet 30 tablet 0 MG tablet (25 mg total) 7 by mouth 3 (three) times daily as needed for Anxiety. 06/30/2017 Discontinued HYDROmorphone (DILAUDID) Take 2 mg by 0 2 MG tablet mouth every 6 (six) hours as needed for Pain. 07/01/2017 Discontinued amLODIPine (NORVASC) 10 Take 1 tablet 30 tablet 11 MG tablet (10 mg total) 7 by mouth daily. 07/01/2017 Discontinued carvedilol (COREG) 6.25 Take 1 tablet 60 tablet 11 MG tablet (6.25 mg 7 total) by mouth 2 (two) times daily with breakfast and dinner. 07/02/2017 Discontinued insulin lispro Inject 0.8 0 protamin-lispro (HUMALOG mLs (80 Units 7 75-25) 100 unit/mL total) (75-25) InPn injection subcutaneousl y 3 (three) times daily before meals Start at 5 units then increase as you eat better at home. 06/30/2017 Discontinued amitriptyline (ELAVIL) 10 Take 1 tablet 30 tablet 11 MG tablet (10 mg total) 7 by mouth nightly. 07/01/2017 Discontinued fenofibrate (TRICOR) 48 Take 1 tablet 30 tablet 11 MG tablet (48 mg total) 7 by mouth daily. 06/30/2017 Discontinued lisinopril Take 1 tablet 30 tablet 11 (PRINIVIL,ZESTRIL) 40 MG (40 mg total) 7 tablet by mouth daily. 06/30/2017 Discontinued ondansetron (ZOFRAN) 4 MG Take 1 tablet 30 tablet 3 tablet (4 mg total) 7 by mouth 3 (three) times daily as needed for Nausea. 06/30/2017 Discontinued ibuprofen (ADVIL,MOTRIN) Take 1 tablet 20 tablet 0 600 MG tablet (600 mg 7 total) by mouth every 6 (six) hours as needed for Pain for up to 20 doses. 06/30/2017 Discontinued cloNIDine HCl (CATAPRES) Take 1 tablet 15 tablet 0 0.2 MG tablet (0.2 mg 7 total) by mouth 3 (three) times daily as needed (TAKE IF SYSTOLIC>180 OR IF DIASTOLIC>100 ) for up to 15 doses. 06/30/2017 Discontinued methylPREDNISolone Take the 1 Package 0 (MEDROL DOSEPACK) 4 mg steroid pack 7 tablet as package instructs. 06/30/2017 Discontinued acetaminophen-codeine Take 1 tablet 15 tablet 0 (TYLENOL #3) 300-30 mg by mouth 3 7 per tablet (three) times daily as needed for Pain. Max Daily Amount: 3 tablets 08/17/2017 Discontinued bacitracin 500 unit/gram Apply 120 g 0 ointment topically 2 7 (two) times daily. 08/17/2017 Discontinued metFORMIN (GLUCOPHAGE) Take 1,000 mg 0 1000 MG tablet by mouth 2 (two) times daily with breakfast and dinner. 07/01/2017 Discontinued carvedilol (COREG) 6.25 Take 6.25 mg 0 MG tablet by mouth 2 (two) times daily with breakfast and dinner. 08/17/2017 Discontinued fenofibrate (TRICOR) 48 Take 48 mg by 0 MG tablet mouth daily. 08/17/2017 Discontinued insulin lispro Inject 0.45 0 protamin-lispro (HUMALOG mLs (45 Units 8 75-25) 100 unit/mL total) (75-25) InPn injection subcutaneousl y 3 (three) times daily before meals Start at 5 units then increase as you eat better at home. 08/17/2017 Discontinued PROTONIX 40 mg tablet 0 8 08/17/2017 Discontinued spironolactone 0 (ALDACTONE) 25 MG tablet 8 08/17/2017 Discontinued COREG 25 mg tablet 0 8 08/17/2017 Discontinued lisinopril 0 (PRINIVIL,ZESTRIL) 40 MG 8 tablet 01/31/2018 Discontinued meloxicam (MOBIC) 15 MG Take 15 mg by 0 tablet mouth daily 8 as needed for Pain . 08/17/2017 Discontinued levothyroxine (SYNTHROID, 0 LEVOTHROID) 100 MCG 8 tablet 08/17/2017 Discontinued lisinopril Take 40 mg by 0 (PRINIVIL,ZESTRIL) 40 MG mouth daily . 8 tablet 08/17/2017 Discontinued fenofibrate (TRICOR) 48 0 MG tablet 8 08/17/2017 Discontinued valsartan-hydrochlorothia 0 zide (DIOVAN-HCT) 320-25 8 mg per tablet 08/17/2017 Discontinued ZOLOFT 25 mg tablet 0 8 08/17/2017 Discontinued ketoconazole (NIZORAL) 2 0 % cream 8 01/31/2018 Discontinued fexofenadine (JUANA) TAKE 1 TABLET 0 180 MG tablet BY MOUTH 5 DAILY 08/17/2017 Discontinued cyclobenzaprine Take 10 mg by 0 (FLEXERIL) 10 MG tablet mouth 3 8 (three) times daily as needed. 01/31/2018 Discontinued HYDROcodone-acetaminophen Take 1 tablet 0 (NORCO 10-325) 10-325 mg by mouth 8 per tablet every 6 (six) hours as needed for Pain . 08/27/2017 cyclobenzaprine Take 1 tablet 20 tablet 0 (FLEXERIL) 10 MG tablet (10 mg total) 8 by mouth 2 (two) times daily as needed for Muscle spasms for up to 10 days. 08/27/2017 acetaminophen-codeine Take 1-2 20 tablet 0 (TYLENOL #3) 300-30 mg tablets by 8 per tablet mouth every 6 (six) hours as needed for up to 10 days. Max Daily Amount: 8 tablets 10/23/2017 acetaminophen-codeine Take 1-2 15 tablet 0 (TYLENOL #3) 300-30 mg tablets by 8 per tablet mouth every 6 (six) hours as needed for Pain for up to 10 days. Max Daily Amount: 8 tablets 10/23/2017 cyclobenzaprine Take 1 tablet 20 tablet 0 (FLEXERIL) 10 MG tablet (10 mg total) 8 by mouth 2 (two) times daily as needed for Muscle spasms for up to 10 days. 11/09/2017 acetaminophen-codeine Take 1 tablet 19 tablet 0 (TYLENOL #4) 300-60 mg by mouth 8 per tablet every 6 (six) hours as needed for up to 5 days. Max Daily Amount: 4 tablets 01/31/2018 Discontinued PROTONIX 40 mg tablet Take 1 tablet 0 by mouth 8 daily. Active Problems Problem Noted Date Dehydration, moderate 12/06/2017 Uncontrolled hypertension 12/06/2017 Gastroesophageal reflux disease without esophagitis 12/06/2017 Acute kidney injury 07/02/2017 Tinea versicolor 07/02/2017 Acute recurrent pancreatitis 07/01/2017 Acute on chronic pancreatitis 06/30/2017 Hyperglycemia 06/29/2017 Intractable abdominal pain 06/02/2016 Pain of left lower extremity 04/13/2016 Unstable angina 02/03/2016 Left leg cellulitis 09/10/2015 Morbid obesity 12/03/2014 CAD (coronary artery disease)- CAD -- non-occlusive by heart cath - 2006 - 12/03/2014 [facility] - Dr. 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 [employer] Guide Hypertriglyceridemia 12/15/2012 HTN (hypertension) 10/18/2012 Diabetes mellitus 10/18/2012 Encounters Care Team Description Date Type Specialty Kurt Alegria MD Hyperglycemia (Primary Dx); Hyperglycemia without ketosis; Essential hypertension; Uncontrolled type 1 diabetes mellitus with hyperglycemia (HCC) 01/31/2018 Emergency Emergency Medicine 01/31/2018 Orders Only General Internal Medicine Dangelo Rizvi DO Type 2 diabetes mellitus with hyperglycemia, with long-term current use of insulin (HCC) (Primary Dx); Dehydration, moderate; Gastroesophageal reflux disease without esophagitis; Uncontrolled hypertension 12/06/2017 Emergency Emergency Medicine 12/06/2017 Orders Only General Internal Medicine Sumit Barnard MD Right-sided chest pain (Primary Dx); Hypertriglyceridemia; Chronic kidney disease, unspecified CKD stage; Hyperglycemia; Type 1 diabetes mellitus without complication (HCC); Essential hypertension 11/04/2017 Emergency Emergency Medicine - 11/05/2017 Kurt Alegria MD Acute kidney injury (HCC) (Primary Dx); Heat exhaustion, initial encounter; Hypertension, uncontrolled; Uncontrolled type 2 diabetes mellitus without complication, with long-term current use of insulin (HCC); Coronary artery disease involving [place] heart without angina pectoris, unspecified vessel or lesion type 10/13/2017 Emergency Emergency Medicine 10/13/2017 Orders Only General Internal Medicine Chino Almendarez MD Chest pain, unspecified type (Primary Dx); Neck pain on left side; Morbid obesity (HCC); Essential hypertension; Hyperglycemia 08/17/2017 Emergency Emergency Medicine - 08/18/2017 08/17/2017 Orders Only General Internal Medicine Arthur Pinzon MD Vincent, Toicha Ann, MD Alagugurusamy, Rajkumar, MD Hyperglycemia (Primary Dx); Sepsis, due to unspecified organism (HCC); Acute diarrhea; Acute nonintractable headache, unspecified headache type 06/29/2017 [facility] General Internal Medicine - Encounter 07/02/2017 06/29/2017 Orders Only General Internal Medicine Kurt Alegria MD Chest pain, unspecified type (Primary Dx) 04/21/2017 Emergency Emergency Medicine 04/21/2017 Orders Only General Internal Medicine after 02/09/2017 Immunizations Name Dates Previously Given Next Due Pneumococcal 06/13/2015 Polysaccharide (Pneumovax) Family History Medical History Relation Name Comments Mental illness Brother Unremarkable Daughter Unremarkable Father Unremarkable Mother Relation Name Status Comments Brother Daughter Father Mother Social History Date Tobacco Use Types Packs/Day Years Used Quit: 06/15/2014 Former Smoker 0.5 Smokeless Tobacco: Never Used Alcohol Use Drinks/Week oz/Week Comments No socially Sex Assigned at Date Recorded Not on file Industry Job Start Date Occupation Not on file Not on file Not on file Travel End Travel History Travel Start No recent travel history available. Last Filed Vital Signs Time Taken Vital Sign Reading 01/31/2018 3:40 PM [employer] Blood Pressure 112/69 01/31/2018 3:40 PM [employer] Pulse 70 01/31/2018 11:57 AM [employer] Temperature 36.1 C (97 F) 01/31/2018 11:57 AM [employer] Respiratory Rate 20 01/31/2018 3:40 PM [employer] Oxygen Saturation 97% 07/02/2017 5:38 AM CDT Inhaled Oxygen 21% Concentration 01/31/2018 11:57 AM [employer] Weight 173.7 kg (383 lb) 01/31/2018 11:57 AM [employer] Height 195.6 cm (6' 5") 01/31/2018 11:57 AM [employer] Body Mass Index 45.42 Plan of Treatment Health Maintenance Due Date Last Done Comments INFLUENZA VACCINE 12/19/2017 Implants Device Identifier Shelf Expiration Date Model / Serial / Lot Implanted Type Area Manufactur er 12/18/2016 3752 / / [id number] Stent Panc Advanix [id number] Str 3752 Stents-Per N/A: Pancreas [place] - [id number] ipheral SCI:ENDO Implanted: Qty: 1 on 06/22/2016 by Madison Barnard MD Procedures Comments Procedure Name Priority Date/Time Associated Diagnosis CBC W/PLT COUNT & AUTO STAT 01/31/2018 DIFFERENTIAL 1:05 PM [employer] LIPASE STAT 01/31/2018 1:05 PM [employer] HEPATIC FUNCTION PANEL STAT 01/31/2018 1:05 PM [employer] KETONE, BLOOD STAT 01/31/2018 1:05 PM [employer] PHOSPHORUS STAT 01/31/2018 1:05 PM [employer] MAGNESIUM STAT 01/31/2018 1:05 PM [employer] TROPONIN I STAT 01/31/2018 1:05 PM [employer] CBC W/PLT COUNT & AUTO STAT 01/31/2018 DIFFERENTIAL 1:05 PM [employer] BASIC METABOLIC PANEL (7) STAT 01/31/2018 1:05 PM [employer] ECG 12-LEAD Routine 01/31/2018 1:01 PM [employer] Procedure Note - Interface, External Ris In - 01/31/2018 6:57 PM [employer] Ventricula r Rate 68 BPM Atrial Rate 68 BPM P-R Interval 212 ms QRS Duration 118 ms Q-T Interval 402 ms QTC Calculatio n(Bazett) 427 ms P Beauty 31 degrees R Beauty -13 degrees T Beauty 21 degrees Sinus rhythm with 1st degree A-V block Inferior infarct (cited on or before 8) Cannot rule out Anterior infarct (cited on or before 8) Abnormal ECG When compared with ECG of 12:51, [place] interval has increased QRS duration has increased ECG 12-LEAD STAT 01/31/2018 1:01 PM [employer] POCT-GLUCOSE METER Routine 01/31/2018 12:20 PM [employer] ED ECG INTERPRETATION Routine 12/11/2017 10:24 PM CDT BASIC METABOLIC PANEL (7) STAT 12/06/2017 2:51 PM CDT ECG 12-LEAD Routine 12/06/2017 12:51 PM CDT Procedure Note - Interface, External Ris In - 12/06/2017 6:21 PM CDT Ventricula r Rate 67 BPM Atrial Rate 67 BPM P-R Interval 168 ms QRS Duration 96 ms Q-T Interval 428 ms QTC Calculatio n(Bazett) 452 ms P Beauty 102 degrees R Beauty -29 degrees T Beauty 3 degrees Normal sinus rhythm Inferior infarct , age undetermin ed Cannot rule out Anterior infarct , age undetermin ed Abnormal ECG When compared with ECG of 12:33, Inferior infarct is now Present ECG 12-LEAD STAT 12/06/2017 12:51 PM CDT URINALYSIS W/ MICROSCOPIC STAT 12/06/2017 12:47 PM CDT BLOOD GAS, VENOUS STAT 12/06/2017 12:40 PM CDT KETONE, BLOOD STAT 12/06/2017 12:40 PM CDT CBC W/PLT COUNT & AUTO STAT 12/06/2017 DIFFERENTIAL 12:37 PM CDT CREATINE KINASE (CK), STAT 12/06/2017 TOTAL AND MB 12:37 PM CDT TROPONIN I STAT 12/06/2017 12:37 PM CDT BASIC METABOLIC PANEL (7) STAT 12/06/2017 12:37 PM CDT CBC W/PLT COUNT & AUTO STAT 12/06/2017 DIFFERENTIAL 12:37 PM CDT ED ECG INTERPRETATION Routine 11/04/2017 7:[address] CHEST WITHOUT IV STAT 11/04/2017 CONTRAST 2:07 PM CDT XR CHEST 1 VIEW STAT 11/04/2017 PORTABLE/BEDSIDE 1:24 PM CDT CBC W/PLT COUNT & AUTO STAT 11/04/2017 DIFFERENTIAL 12:57 PM CDT AMYLASE STAT 11/04/2017 12:57 PM CDT LIPASE STAT 11/04/2017 12:57 PM CDT PT/APTT STAT 11/04/2017 12:57 PM CDT CBC W/PLT COUNT & AUTO STAT 11/04/2017 DIFFERENTIAL 12:57 PM CDT TROPONIN I STAT 11/04/2017 12:57 PM CDT MAGNESIUM STAT 11/04/2017 12:57 PM CDT BASIC METABOLIC PANEL (7) STAT 11/04/2017 12:57 PM CDT ECG 12-LEAD Routine 11/04/2017 12:33 PM CDT Procedure Note - Interface, External Ris In - 11/04/2017 7:01 PM CDT Ventricula r Rate 59 BPM Atrial Rate 59 BPM P-R Interval 182 ms QRS Duration 102 ms Q-T Interval 422 ms QTC Calculatio n(Bazett) 417 ms P Beauty 29 degrees R Beauty -22 degrees T Beauty 26 degrees Sinus bradycardi a Otherwise normal ECG When compared with ECG of 8 13:40, No significan t change was found ECG 12-LEAD STAT 11/04/2017 12:33 PM CDT URINALYSIS W/ MICROSCOPIC STAT 10/13/2017 2:22 PM CDT ECG 12-LEAD Routine 10/13/2017 1:40 PM CDT Procedure Note - Interface, External Ris In - 10/13/2017 7:35 PM CDT Ventricula r Rate 79 BPM Atrial Rate 79 BPM P-R Interval 192 ms QRS Duration 108 ms Q-T Interval 394 ms QTC Calculatio n(Bazett) 451 ms P Beauty 37 degrees R Beauty -42 degrees T Beauty 23 degrees Normal sinus rhythm Left axis deviation Pulmonary disease pattern Abnormal ECG When compared with ECG of 8 12:37, No significan t change was found ECG 12-LEAD STAT 10/13/2017 1:40 PM CDT CBC W/PLT COUNT & AUTO STAT 10/13/2017 DIFFERENTIAL 1:16 PM CDT CREATINE KINASE (CK) STAT 10/13/2017 1:16 PM CDT CBC W/PLT COUNT & AUTO STAT 10/13/2017 DIFFERENTIAL 1:16 PM CDT TROPONIN I STAT 10/13/2017 1:16 PM CDT B-TYPE NATRIURETIC FACTOR STAT 10/13/2017 (BNP) 1:16 PM CDT MAGNESIUM STAT 10/13/2017 1:16 PM CDT BASIC METABOLIC PANEL (7) STAT 10/13/2017 1:16 PM CDT XR CHEST 1 VIEW STAT 10/13/2017 PORTABLE/BEDSIDE 1:13 PM CDT ED ECG INTERPRETATION Routine 08/17/2017 5:55 PM CDT XR CHEST 1 VIEW STAT 08/17/2017 PORTABLE/BEDSIDE 2:20 PM CDT CBC W/PLT COUNT & AUTO STAT 08/17/2017 DIFFERENTIAL 1:00 PM CDT B-TYPE NATRIURETIC FACTOR STAT 08/17/2017 (BNP) 1:00 PM CDT CREATINE KINASE (CK), STAT 08/17/2017 TOTAL AND MB 1:00 PM CDT TROPONIN I STAT 08/17/2017 1:00 PM CDT BASIC METABOLIC PANEL (7) STAT 08/17/2017 1:00 PM CDT CBC W/PLT COUNT & AUTO STAT 08/17/2017 DIFFERENTIAL 1:00 PM CDT ECG 12-LEAD Routine 08/17/2017 12:37 PM CDT Procedure Note - Interface, External Ris In - 08/17/2017 7:06 PM CDT Ventricula r Rate 69 BPM Atrial Rate 69 BPM P-R Interval 186 ms QRS Duration 96 ms Q-T Interval 406 ms QTC Calculatio n(Bazett) 435 ms P Beauty 60 degrees R Beauty -42 degrees T Beauty 24 degrees Normal sinus rhythm Left axis deviation Possible Anterior infarct , age undetermin ed Abnormal ECG When compared with ECG of 8 14:53, No significan t change was found ECG 12-LEAD STAT 08/17/2017 12:37 PM CDT RHYTHM STRIP - SCAN 07/05/2017 8:42 AM CDT POCT-GLUCOSE METER Routine 07/02/2017 1:40 PM CDT MAGNESIUM STAT 07/02/2017 9:35 AM CDT BASIC METABOLIC PANEL (7) STAT 07/02/2017 9:35 AM CDT POCT-GLUCOSE METER Routine 07/02/2017 8:42 AM CDT BLOOD GAS, ARTERIAL Routine 07/02/2017 5:37 AM CDT CBC W/PLT COUNT & AUTO Routine 07/02/2017 DIFFERENTIAL 3:52 AM CDT CBC W/PLT COUNT & AUTO Routine 07/02/2017 DIFFERENTIAL 3:52 AM CDT POCT-GLUCOSE METER Routine 07/01/2017 10:00 PM CDT BLOOD GAS, VENOUS Routine 07/01/2017 6:42 PM CDT KETONE, BLOOD Routine 07/01/2017 6:27 PM CDT LACTIC ACID, VENOUS, Routine 07/01/2017 WHOLE BLOOD 6:27 PM CDT POCT-GLUCOSE METER Routine 07/01/2017 5:03 PM CDT LIPASE STAT 07/01/2017 4:02 PM CDT HEPATIC FUNCTION PANEL STAT 07/01/2017 4:02 PM CDT MAGNESIUM STAT 07/01/2017 4:02 PM CDT BASIC METABOLIC PANEL (7) STAT 07/01/2017 4:02 PM CDT POCT-GLUCOSE METER Routine 07/01/2017 2:01 PM CDT POCT-GLUCOSE METER Routine 07/01/2017 7:55 AM CDT (MANUAL DIFFERENTIAL) Routine 07/01/2017 4:38 AM CDT CBC W/PLT COUNT & AUTO Routine 07/01/2017 DIFFERENTIAL 4:38 AM CDT CBC W/PLT COUNT & AUTO Routine 07/01/2017 DIFFERENTIAL 4:38 AM CDT LACTIC ACID, VENOUS, STAT 07/01/2017 WHOLE BLOOD 4:38 AM CDT POCT-GLUCOSE METER Routine 06/30/2017 9:43 PM CDT STOOL PATH CHARGE Routine 06/30/2017 9:04 PM CDT STOOL CULTURE + SHIGA Routine 06/30/2017 TOXIN 9:04 PM CDT C. DIFFICILE GDH TOXIN Routine 06/30/2017 9:04 PM CDT POCT-GLUCOSE METER Routine 06/30/2017 5:27 PM CDT POCT-GLUCOSE METER Routine 06/30/2017 1:38 PM CDT POCT-GLUCOSE METER Routine 06/30/2017 12:18 PM CDT POCT-GLUCOSE METER Routine 06/30/2017 9:25 AM CDT POCT-GLUCOSE METER Routine 06/30/2017 7:21 AM CDT LIPID PANEL Routine 06/30/2017 1:04 AM CDT LIPASE Routine 06/30/2017 1:04 AM CDT PHOSPHORUS Routine 06/30/2017 1:04 AM CDT MAGNESIUM Routine 06/30/2017 1:04 AM CDT HEMOGLOBIN A1C AP Routine 06/30/2017 1:04 AM CDT HEPATIC FUNCTION PANEL Routine 06/30/2017 1:04 AM CDT BASIC METABOLIC PANEL (7) Routine 06/30/2017 1:04 AM CDT LACTIC ACID, VENOUS, STAT 06/30/2017 WHOLE BLOOD 1:04 AM CDT POCT-GLUCOSE METER Routine 06/29/2017 11:[address] ABDOMEN/PELVIS WITH IV STAT 06/29/2017 CONTRAST 9:46 PM CDT LACTIC ACID, VENOUS, STAT 06/29/2017 WHOLE BLOOD 9:[address] BRAIN WITHOUT IV STAT 06/29/2017 CONTRAST 7:34 PM CDT PHOSPHORUS Routine 06/29/2017 6:35 PM CDT MAGNESIUM Routine 06/29/2017 6:35 PM CDT BASIC METABOLIC PANEL (7) Routine 06/29/2017 6:35 PM CDT LACTIC ACID, VENOUS, STAT 06/29/2017 WHOLE BLOOD 6:35 PM CDT POCT-GLUCOSE METER Routine 06/29/2017 6:08 PM CDT ED ECG INTERPRETATION Routine 06/29/2017 5:23 PM CDT CRITICAL CARE Routine 06/29/2017 5:23 PM CDT POCT-GLUCOSE METER Routine 06/29/2017 4:53 PM CDT BLOOD CULTURE STAT 06/29/2017 4:30 PM CDT BLOOD CULTURE STAT 06/29/2017 4:30 PM CDT XR CHEST 1 VIEW STAT 06/29/2017 PORTABLE/BEDSIDE 4:16 PM CDT POCT-LACTIC ACID, VENOUS Routine 06/29/2017 3:43 PM CDT B-TYPE NATRIURETIC FACTOR STAT 06/29/2017 (BNP) 3:28 PM CDT BLOOD GAS, VENOUS STAT 06/29/2017 3:28 PM CDT (MANUAL DIFFERENTIAL) STAT 06/29/2017 2:54 PM CDT CBC W/PLT COUNT & AUTO STAT 06/29/2017 DIFFERENTIAL 2:54 PM CDT LIPASE STAT 06/29/2017 2:54 PM CDT CREATINE KINASE (CK), STAT 06/29/2017 TOTAL AND MB 2:54 PM CDT TROPONIN I STAT 06/29/2017 2:54 PM CDT URINALYSIS W/ REFLEX STAT 06/29/2017 URINE CULTURE 2:54 PM CDT KETONE, BLOOD STAT 06/29/2017 2:54 PM CDT CBC W/PLT COUNT & AUTO STAT 06/29/2017 DIFFERENTIAL 2:54 PM CDT COMPREHENSIVE METABOLIC STAT 06/29/2017 PANEL 2:54 PM CDT URINE CULTURE STAT 06/29/2017 2:54 PM CDT ECG 12-LEAD Routine 06/29/2017 2:53 PM CDT Procedure Note - Interface, External Ris In - 06/29/2017 4:37 PM CDT Ventricula r Rate 92 BPM Atrial Rate 92 BPM P-R Interval 190 ms QRS Duration 110 ms Q-T Interval 378 ms QTC Calculatio n(Bazett) 467 ms P Beauty 38 degrees R Beauty -35 degrees T Beauty 39 degrees Normal sinus rhythm Left axis deviation Abnormal ECG When compared with ECG of 8 11:00, Incomplete right bundle branch block is no longer Present ECG 12-LEAD Routine 06/29/2017 2:53 PM CDT POCT-GLUCOSE METER Routine 06/29/2017 2:50 PM CDT XR CHEST 1 VIEW STAT 04/21/2017 PORTABLE/BEDSIDE 2:15 PM [employer] CBC W/PLT COUNT & AUTO STAT 04/21/2017 DIFFERENTIAL 11:23 AM [employer] TROPONIN I STAT 04/21/2017 11:23 AM [employer] B-TYPE NATRIURETIC FACTOR STAT 04/21/2017 (BNP) 11:23 AM [employer] PT/APTT STAT 04/21/2017 11:23 AM [employer] CBC W/PLT COUNT & AUTO STAT 04/21/2017 DIFFERENTIAL 11:23 AM [employer] CREATINE KINASE (CK), STAT 04/21/2017 TOTAL AND MB 11:23 AM [employer] MAGNESIUM STAT 04/21/2017 11:23 AM [employer] BASIC METABOLIC PANEL (7) STAT 04/21/2017 11:23 AM [employer] ECG 12-LEAD Routine 04/21/2017 11:00 AM [employer] Procedure Note - Interface, External Ris In - 04/21/2017 7:01 PM [employer] Ventricula r Rate 102 BPM Atrial Rate 102 BPM P-R Interval 178 ms QRS Duration 114 ms Q-T Interval 374 ms QTC Calculatio n(Bazett) 487 ms P Beauty 37 degrees R Beauty -42 degrees T Beauty 40 degrees Sinus tachycardi a Left axis deviation Incomplete right bundle branch block Minimal voltage criteria for LVH, may be normal variant Cannot rule out Anterior infarct , age undetermin ed Abnormal ECG When compared with ECG of 7 20:00, QRS axis Shifted left ECG 12-LEAD STAT 04/21/2017 11:00 AM [employer] 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 WBC 5.4 3.5 - 10.5 K/L [facility] RBC 5.07 4.63 - 6.08 M/L [facility] Hemoglobin 16.4 13.7 - 17.5 GM/DL [facility] Hematocrit 45.3 40.1 - 51.0 % [facility] MCV 89.3 79.0 - 92.2 fL [facility] MCH 32.3 (H) 25.7 - 32.2 pg [facility] MCHC 36.2 32.3 - 36.5 GM/DL [facility] RDW 13.5 11.6 - 14.4 % [facility] Platelets 153 150 - 450 K/CU MM [facility] MPV 12.0 9.4 - 12.4 fL [facility] nRBC 0 0 - 0 /100 WBC [facility] % Neutros 60 % [facility] % Lymphs 30 % [facility] % Monos 7 % [facility] % Eos 2 % [facility] % Baso 1 % [facility] # Neutros 3.25 1.78 - 5.38 K/L [facility] # Lymphs 1.60 1.32 - 3.57 K/L [facility] # Monos 0.38 0.30 - 0.82 K/L [facility] # Eos 0.11 0.04 - 0.54 K/L [facility] # Baso 0.03 0.01 - 0.08 K/L [facility] Immature 1 0 - 1 % [facility] Granulocytes-Relative [facility] Specimen Blood - Arm, Left Performing Organization Address City/[facility] Phone Number [address] * Troponin I (01/31/2018 1:05 PM [employer] MACHINE KNOTTER) Only the most recent of 7 results within the time period is included. Troponin I <0.01 0.00 - 0.03 ng/mL [facility] Specimen Blood - Arm, Left Performing Organization Address City/[facility] [place] [address] [phone] * Phosphorus (01/31/2018 1:05 PM [employer] MACHINE KNOTTER) Only the most recent of 3 results within the time period is included. Phosphorus 2.3Comment: Specimen markedly 2.3 - 4.7 mg/dL [facility] hemolyzed [facility] Specimen Blood - Arm, Left Performing Organization Address City/State/[facility] Phone Number [address] * Magnesium (01/31/2018 1:05 PM [employer]YING MACHINE KNOTTER) Only the most recent of 8 results within the time period is included. Magnesium 3.5 (H)Comment: Specimen 1.6 - 2.6 mg/dL [facility] Specimen Blood - Arm, Left Performing Organization Address [facility] Phone Number [address] * Lipase (01/31/2018 1:05 PM [employer]YING MACHINE KNOTTER) Only the most recent of 5 results within the time period is included. Lipase 46 8 - 78 U/L [facility] Specimen Blood - Arm, Left Performing Organization Address [facility] Phone Number [address] * Ketones, blood (01/31/2018 1:05 PM [employer] MACHINE KNOTTER) Only the most recent of 4 results within the time period is included. Ketones, Blood 0.2 <0.4 mmol/L [facility] Specimen Blood - Arm, Left Performing Organization Address [facility] Phone Number [address] * Hepatic function panel (01/31/2018 1:05 PM [employer]YING MACHINE KNOTTER) Only the most recent of 3 results within the time period is included. Protein, Total 9.0 (H)Comment: Specimen 6.0 - 8.3 gm/dL [facility] Albumin 4.0Comment: Specimen markedly 3.5 - 5.0 g/dL [facility] Total Bilirubin 0.5Comment: Specimen markedly 0.2 - 1.2 mg/dL [facility] hemolyzed [facility] Bilirubin, Direct <0.1 (L)Comment: Specimen 0.1 - 0.5 mg/dL [facility] markedly hemolyzed [facility] Alkaline Phosphatase 96 40 - 150 U/L [facility] AST 38 (H)Comment: Specimen 5 - 34 U/L [facility] markedly hemolyzed [facility] ALT 25Comment: Specimen markedly 6 - 55 U/L [facility] Specimen Blood - Arm, Left Narrative Performed At Specimen markedly lipemic [facility] Performing Organization Address [facility] Phone Number [facility] [address] [place] [address] [facility] * Basic Metabolic Panel (01/31/2018 1:05 PM [employer]YING MACHINE KNOTTER) Only the most recent of 11 results within the time period is included. Sodium 131 (L) 136 - 145 meq/L [facility] Potassium 4.0Comment: Specimen markedly 3.5 - 5.1 meq/L [facility] Chloride 101 98 - 107 meq/L [facility] CO2 14 (L) 22 - 29 meq/L [facility] BUN 19 7 - 21 mg/dL [facility] Creatinine 1.21Comment: Specimen markedly 0.57 - 1.25 mg/dL [facility] Glucose 299 (H) 70 - 105 mg/dL [facility] Calcium 9.7 8.4 - 10.2 mg/dL [facility] EGFR 64Comment: ESTIMATED GFR IS mL/min/1.73 sq m [facility] NOT ACCURATE CREATININE [facility] CLEARANCE IN PREDICTING GLOMERULAR FILTRATION RATE. ESTIMATED GFR IS NOT APPLICABLE FOR DIALYSIS PATIENTS. Specimen Blood - Arm, Left Performing Organization Address [facility] Phone Number [facility] [address] [place] [address] [phone] [place] [address] * ECG 12 lead (01/31/2018 1:01 PM W[employer]YING MACHINE KNOTTER) Only the most recent of 7 results within the time period is included. Narrative Performed At Ventricular Rate 68 BPM [facility] Atrial Rate 68 BPM P-R Interval 212 ms QRS Duration 118 ms Q-T Interval 402 ms QTC Calculation(Bazett) 427 ms P Beauty 31 degrees R Beauty -13 degrees T Beauty 21 degrees Sinus rhythm with 1st degree A-V block Inferior infarct (cited on or before 06-DEC-2017) Poor R wave progression Cannot rule out Anterior infarct (cited on or before 06-DEC-2017) Abnormal ECG When compared with ECG of 06-DEC-2017 12:51, [place] interval has increased QRS duration has increased Confirmed by Kati SMITH BASANT ([id number]) on 02/01/2018 10:40:10 AM Procedure Note Interface, External Ris In - 02/01/2018 10:40 AM [employer]YING MACHINE KNOTTER Ventricular Rate 68 BPM Atrial Rate 68 BPM P-R Interval 212 ms QRS Duration 118 ms Q-T Interval 402 ms QTC Calculation(Bazett) 427 ms P Beauty 31 degrees R Beauty -13 degrees T Beauty 21 degrees Sinus rhythm with 1st degree A-V block Inferior infarct (cited on or before 06-DEC-2017) Poor R wave progression Cannot rule out Anterior infarct (cited on or before 06-DEC-2017) Abnormal ECG When compared with ECG of 06-DEC-2017 12:51, [place] interval has increased QRS duration has increased Confirmed by Kati SMITH BASANT ([id number]) on 02/01/2018 10:40:10 AM Performing Organization Address City/State/Zipcode Phone Number [facility] * POC-Glucose meter (01/31/2018 12:20 PM W[employer] TYING MACHINE KNOTTER) Only the most recent of 17 results within the time period is included. POC-Glucose Meter 287 (H)Comment: TESTED AT 70 - 110 mg/dL [facility] [address] [facility] [id number] Specimen Blood Performing Organization Address City/[facility]/Zipcode Phone Number [facility] [address] [place] [address] [phone] * ED ECG Interpretation (12/11/2017 10:24 PM CDT) Only the most recent of 4 results within the time period is included. Narrative Performed At Dangelo Rizvi DO 12/11/2017 10:24 PM ECG/EKG Interpretation Date/Time: 12/06/2017 12:53 PM Performed by: DANGELO RIZVI Authorized by: DANGELO RIZVI The ECG was interpreted by ED physician. This ECG was not compared with previous ECG(s).The ECG is interpreted as sinus rhythm. Rate is normal rate. Heart rate is 67 BPM. Conduction: conduction normal. Abnormal conduction noted: non-specific intraventricular conduction delay. ST segments abnormal. T waves abnormal. Beauty is normal. Other findings: no other findings. Right sided lead use: right-sided leads not used. Left sided lead use: Posterior leads were not used. Clinical Impression: abnormal ECGECG reviewed and does not meet STEMI criteria. * Urinalysis w/Microscopic (12/06/2017 12:47 PM CDT) Only the most recent of 2 results within the time period is included. Color, UA Light Yellow [facility] Clarity, UA Clear [facility] Specific [place], UA 1.015 1.001 - 1.035 [facility] pH, UA 5.5 5.0 - 8.0 [facility] Protein, UA 20 mg/dL (A) Negative [facility] Glucose, UA >1000 mg/dL (A) Negative [facility] Ketones, UA Negative Negative [facility] Bilirubin, UA Negative Negative [facility] Blood, UA Negative Negative [facility] Nitrite, UA Negative Negative [facility] Leukocytes, UA Negative Negative [facility] Urobilinogen, UA 0.2 0.2 - 1.0 mg/dL [facility] RBC, UA <1 /HPF [facility] WBC, UA <1 /HPF [facility] Mucus Rare [facility] Squam Epithel, UA <1 /HPF [facility] Specimen Source Urine, Voided [facility] Specimen Urine - Urine, Voided Performing Organization Address City/[facility]/Zipcode Phone Number [facility] [address] [place] [address] [phone] [place] [address] * Blood gas, venous (12/06/2017 12:40 PM CDT) Only the most recent of 3 results within the time period is included. pH, Rahat 7.41 7.32 - 7.42 [facility] pCO2, Rahat 44 41 - 51 mmHg [facility] pO2, Rahat 33 25 - 40 mmHg [facility] O2 Sat, Rahat 67.3 40.0 - 70.0 % [facility] HCO3, Rahat 27 21 - 29 mmol/L [facility] Base Excess, Rahat 1.6 -2.0 - 3.0 mmol/L [facility] Patient Temperature 36.0 C [facility] FIO2 21.0 % [facility] Specimen Blood - Arm, Left Performing Organization Address [facility] Phone Number [facility] [address] [place] [address] [phone] [place] [address] * Creatine Kinase (CK), Total and MB (not available at [facility] [place]) (12/06/2017 12:37 PM CDT) Only the most recent of 4 results within the time period is included. Total CK 188 29 - 200 U/L [facility] CK-MB 3.1 0.0 - 6.6 ng/mL [facility] MB Relative Index 1.6 % [facility] Specimen Blood - Arm, Left Narrative Performed At CK-MB Reference Range: [facility] <6.7Normal [facility] 6.7-10.0Borderline >10.0 Abnormal Performing Organization Address City/[facility] Phone Number [facility] [address] [place] [address] [facility] * CT chest without contrast (11/04/2017 2:07 PM CDT) Narrative Performed At FINAL REPORT [facility] DOSE REDUCTION: The examination was performed according to departmental dose-optimization program which includes automated exposure control, adjustment of the mA and/or kV according to patient size and/or use of iterative reconstruction technique. TECHNIQUE: CT of the chest without intravenous contrast. COMPARISON: CT of the chest, 02/04/2016, CT of the chest, 12/16/2009 Discussion: Lungs are clear without suspicious nodule or mass. No pleural effusions or consolidation. Heart is borderline prominent in size. Noncontrast appearance of the aorta and great vessels is unremarkable. Coronary artery calcifications are seen. No pericardial effusion. No significant mediastinal or hilar lymphadenopathy. There is bilateral gynecomastia. In the upper abdomen an exophytic cystic structure arising from the spleen is again noted. No acute skeletal abnormality. IMPRESSION: 1. No acute CT abnormality in the chest. Signed: Miguel Fleming MD Report Verified Date/Time:11/04/2017 14:32:02 Reading Location: [facility] Radiology Reading Room Procedure Note Interface, External Ris In - 11/04/2017 2:34 PM CDT FINAL REPORT DOSE REDUCTION: The examination was performed according to departmental dose-optimization program which includes automated exposure control, adjustment of the mA and/or kV according to patient size and/or use of iterative reconstruction technique. TECHNIQUE: CT of the chest without intravenous contrast. COMPARISON: CT of the chest, 02/04/2016, CT of the chest, 12/16/2009 Discussion: Lungs are clear without suspicious nodule or mass. No pleural effusions or consolidation. Heart is borderline prominent in size. Noncontrast appearance of the aorta and great vessels is unremarkable. Coronary artery calcifications are seen. No pericardial effusion. No significant mediastinal or hilar lymphadenopathy. There is bilateral gynecomastia. In the upper abdomen an exophytic cystic structure arising from the spleen is again noted. No acute skeletal abnormality. IMPRESSION: 1. No acute CT abnormality in the chest. Signed: Miguel Fleming MD Report Verified Date/Time: 11/04/2017 14:32:02 Reading Location: [facility] Radiology Reading Room Performing Organization Address City/[facility] Phone Number [facility] * XR chest 1 view portable / bedside (11/04/2017 1:24 PM CDT) Only the most recent of 5 results within the time period is included. Narrative Performed At FINAL REPORT [facility] TECHNIQUE: Frontal chest radiographs dated 11/04/2017. CLINICAL HISTORY: Chest pain COMPARISON STUDY: Chest radiograph dated 10/13/2017 IMPRESSION: Lungs are clear. No pleural effusion or pneumothorax. Cardiomediastinal silhouette is normal in size. No pulmonary edema. No fracture. Degenerative changes are seen in the spine. Signed: Rex Fontenot MD Report Verified Date/Time:11/04/2017 14:18:53 Reading Location: [facility] Radiology Reading Room Procedure Note Interface, External Ris In - 11/04/2017 2:21 PM CDT FINAL REPORT TECHNIQUE: Frontal chest radiographs dated 11/04/2017. CLINICAL HISTORY: Chest pain COMPARISON STUDY: Chest radiograph dated 10/13/2017 IMPRESSION: Lungs are clear. No pleural effusion or pneumothorax. Cardiomediastinal silhouette is normal in size. No pulmonary edema. No fracture. Degenerative changes are seen in the spine. Signed: Rex Fontenot MD Report Verified Date/Time: 11/04/2017 14:18:53 Reading Location: [facility] Radiology Reading Room Performing Organization Address City/State/Zipcode Phone Number [facility] * PT/PTT (11/04/2017 12:57 PM CDT) Only the most recent of 2 results within the time period is included. Protime 15.9 (H) 11.7 - 14.7 seconds [facility] INR 1.3 <=5.9 [facility] PTT 28.7 22.5 - 36.0 seconds [facility] Specimen Blood - Arm, Right Narrative Performed At RECOMMENDED COUMADIN/WARFARIN INR THERAPY RANGES [facility] STANDARD DOSE: 2.0 - 3.0 Includes: PROPHYLAXIS for venous thrombosis, [facility] systemic embolization; TREATMENT for venous thrombosis and/or pulmonary embolus. HIGH RISK: Target INR is 2.5-3.5 for patients with mechanical heart valves. Performing Organization Address City/[facility] Phone Number [address] * Amylase (11/04/2017 12:57 PM CDT) Amylase 41 25 - 125 U/L [facility] Specimen Blood - Arm, Right Performing Organization Address [facility] Phone Number [address] * B-type Natriuretic Factor (BNP) (10/13/2017 1:16 PM CDT) Only the most recent of 4 results within the time period is included. BNP 27 0 - 100 pg/mL [facility] Specimen Blood Performing Organization Address [facility] Phone Number [address] * Cardiac Enzymes - CPK (10/13/2017 1:16 PM CDT) Total CK 148 29 - 200 U/L [facility] Specimen Blood Performing Organization Address [facility] [place] [address] [phone] [place] [address] * RHYTHM STRIP - SCAN (07/05/2017 8:42 AM CDT) Narrative Performed At * Blood gas, arterial (07/02/2017 5:37 AM CDT) pH, Arterial 7.39 7.35 - 7.45 [facility] pCO2, Arterial 44 35 - 45 mmHg [facility] pO2, Arterial 66 (L) 80 - 90 mmHg [facility] O2 Sat, Arterial 93.3 (L) 96.0 - 97.0 % [facility] HCO3, Arterial 26 21 - 29 mmol/L [facility] Base Excess, Arterial 0.8 -2.0 - 3.0 mmol/L [facility] Patient Temperature 36.7 C [facility] FIO2 21.0 % [facility] Specimen Blood, Arterial Performing Organization Address City/[facility] Phone Number [address] [facility] * Lactic acid, venous, whole blood (07/01/2017 6:27 PM CDT) Only the most recent of 5 results within the time period is included. Lactate, Venous 2.2Comment: Specimen markedly 0.5 - 2.2 mmol/L [facility] hemolyzed [facility] Specimen Blood Narrative Performed At Effective 07/23/2015: Units/Reference Range Change [facility] New: 0.5-2.2 mmol/LPrevious: 5-20 mg/dL [facility] Specimen markedly lipemic Performing Organization Address City/[facility] Phone Number [facility] [address] [place] [address] [facility] * Manual Differential (07/01/2017 4:38 AM CDT) Only the most recent of 2 results within the time period is included. Total Counted [facility] WBC Morphology Normal [facility] Platelet Morphology Normal [facility] RBC Morphology Normal [facility] Specimen Blood - Arm, Left Performing Organization Address City/[facility] Phone Number [facility] [address] [place] [address] [facility] * Clostridium difficile [facility] Toxin (06/30/2017 9:04 PM CDT) C. Difficle Toxin Negative Negative [facility] C. Difficile [facility] Antigen NegativeComment: No indication Negative [facility] of Clostridium difficile [facility] infection and no colonization. Discontinue enteric isolation and therapy. Specimen Stool - Stool Narrative Performed At Testing performed by [employer] Rapid Cassette Assay.For GDH, published [facility] sensitivity of the assay is 98.7% compared to cytotoxicity testing.For Toxin [facility] AB, published sensitivity is 87.8% and specificity 99.4% compared to cytotoxicity testing. Verification of kit performance was done by the [facility] Microbiology Lab prior to clinical use. Testing performed by [employer] Rapid Cassette Assay.For [facility], published sensitivity of the assay is 98.7% compared to cytotoxicity testing.For Toxin AB, published sensitivity is 87.8% and specificity 99.4% compared to cytotoxicity testing. Verification of kit performance was done by the [facility] Microbiology Lab prior to clinical use. Performing Organization Address City/[facility]/Zipcode Phone Number [address] * STOOL PATH CHARGE (06/30/2017 9:04 PM CDT) Pathogen exam charged Done [facility] Specimen Stool - Stool Performing Organization Address City/[facility] Phone Number [address] * Stool culture + Shiga toxin (06/30/2017 9:04 PM CDT) Result No Salmonella, Shigella or [facility] Campylobacter isolated [facility] Specimen Stool - Stool Narrative Performed At [facility] Performing Organization Address City/[facility]/Zipcode Phone Number [address] * Hemoglobin A1c (06/30/2017 1:04 AM CDT) Hemoglobin A1C 13.7 (H) 4.3 - 6.1 % [facility] Specimen Blood Performing Organization Address City/[facility] Phone Number [facility] [address] [place], [place] [phone] [facility] * Lipid panel (06/30/2017 1:04 AM CDT) Triglycerides 5,383Comment: Specimen mg/dL [facility] markedly hemolyzed [facility] Cholesterol 451Comment: Specimen markedly mg/dL [facility] hemolyzed [facility] HDL 12 mg/dL [facility] Specimen Blood Narrative Performed At Calculated LDL not valid if triglyceride >400 mg/dL [facility] Triglyceride Reference Range: [facility] Low Risk <150 [id number] High Risk 200-499 Very High Risk>=500 Cholesterol Reference Range: Low Risk <200 [id number] High Risk>240 HDL Cholesterol Reference Range: Low Risk >=60 High Risk <40 LDL Cholesterol Reference Range: Optimal<100 Near [id number] Very High >=190 Specimen markedly lipemic Performing Organization Address City/State/Zipcode Phone Number [facility] [address] [place] [address] [facility] * CT abdomen/pelvis with IV contrast (06/29/2017 9:46 PM CDT) Narrative Performed At FINAL REPORT Whole Optics CT, ABDOMEN \\T\\ PELVIS, WITH IV CONTRAST [...] MD Report Verified Date/Time:06/29/2017 21:51:53 Reading Location: [address] Reading Room Procedure Note Interface, External Ris [...] Report Verified Date/Time: 06/29/2017 21:51:53 Reading Location: [address] Transitional Reading Room Performing Organization Address City/State/Zipcode Phone Number [facility] * CT brain without IV contrast (06/29/2017 7:34 PM CDT) Narrative Performed At FINAL REPORT [employer] CT head without contrast 06/29/2017 7:34 PM [...] MD Report Verified Date/Time:06/29/2017 19:36:58 Reading Location: [facility] Radiology Reading Room Procedure Note Interface, External [...] Report Verified Date/Time: 06/29/2017 19:36:58 Reading Location: [facility] Radiology Reading Room Performing Organization Address City/[facility]/Zipcode Phone Number [facility] * CRITICAL CARE (06/29/2017 5:23 PM CDT) Narrative Performed At Arthur Pinzon MD 06/29/20175:23 PM Critical Care [...] condition. * Blood culture #2 (06/29/2017 4:30 PM CDT) Only the most recent of 2 results within the time period is included. Result No growth in [address] [facility] Specimen Blood - Arm, Left Performing Organization Address City/State/[facility] Phone Number [facility] [address] [place], [place] [phone] [facility] * POC-Lactic Acid, Venous (06/29/2017 3:43 PM CDT) POC-Lactic Acid, Venous 2.4 (H)Comment: TESTED AT 0.9 - 1.7 mmol/L [facility] [address] [place] [id number] Specimen Blood Performing Organization Address [facility] Phone Number [facility] [address] [place] [address] [facility] * Urinalysis w/Microscopic + Reflex to Culture - Cath (06/29/2017 2:54 PM CDT) Color, UA Light Yellow [facility] Clarity, UA Clear [facility] Specific [place], UA 1.019 1.001 - 1.035 [facility] pH, UA 6.0 5.0 - 8.0 [facility] Protein, UA 10 mg/dL (A) Negative [facility] Glucose, UA >1000 mg/dL (A) Negative [facility] Ketones, UA Negative Negative [facility] Bilirubin, UA Negative Negative [facility] Blood, UA Negative Negative [facility] Nitrite, UA Negative Negative [facility] Leukocytes, UA Negative Negative [facility] Urobilinogen, UA 0.2 0.2 - 1.0 mg/dL [facility] RBC, UA 0 /HPF [facility] WBC, UA <1 /HPF [facility] Squam Epithel, UA <1 /HPF [facility] Specimen Source [facility] Specimen Urine - Urine, Voided Performing Organization Address City/State/Zipcode Phone Number [facility] [address] [place], [place] [phone] [facility] * Urine culture (06/29/2017 2:54 PM CDT) Result >100,000 col/mL skin omar [facility] Specimen Urine Performing Organization Address City/[facility]/Zipcode Phone Number [facility] [address] [place] [address] [facility] * Comprehensive metabolic panel (06/29/2017 2:54 PM CDT) Protein, Total 12.8 (H)Comment: Specimen 6.0 - 8.3 gm/dL [facility] Albumin 4.0Comment: Specimen markedly 3.5 - 5.0 g/dL [facility] Alkaline Phosphatase 102 40 - 150 U/L [facility] Total Bilirubin 0.3Comment: Specimen markedly 0.2 - 1.2 mg/dL [facility] Sodium 121 (L) 136 - 145 meq/L [facility] Potassium 5.5 (H)Comment: Specimen 3.5 - 5.1 meq/L [facility] markedly hemolyzed [facility] Chloride 93 (L) 98 - 107 meq/L [facility] CO2 19 (L) 22 - 29 meq/L [facility] BUN 24 (H) 7 - 21 mg/dL [facility] Creatinine 1.56 (H)Comment: Specimen 0.57 - 1.25 mg/dL [facility] markedly hemolyzed [facility] Glucose 728 (HH) 70 - 105 mg/dL [facility] Calcium 9.3 8.4 - 10.2 mg/dL [facility] AST 47 (H)Comment: Specimen 5 - 34 U/L [facility] markedly hemolyzed [facility] ALT 28Comment: Specimen markedly 6 - 55 U/L [facility] hemolyzed [facility] EGFR 48Comment: ESTIMATED GFR IS mL/min/1.73 sq m [facility] NOT ACCURATE CREATININE [facility] CLEARANCE IN PREDICTING GLOMERULAR FILTRATION RATE. ESTIMATED GFR IS NOT APPLICABLE FOR DIALYSIS PATIENTS. Specimen Blood Narrative Performed At Specimen markedly lipemic [facility] Performing Organization Address City/State/Zipcode Phone Number [facility] [address] [place], [place] [phone] [facility] after 02/09/2017 Insurance Payer Benefit Subscriber ID Type Phone Address Plan / Group [employer]UE [employer]OSS/[employer] BCBS HMO xxxxxxxxxxxx HMO/POS [phone] [address] [place] [address] [employer] OTHER-COMMERCIAL GENERIC xxxxxxxxxxxxx COMMERCIAL Advance Directives For more information, please contact: [facility] [address] [place] [address] Date Inactivated Comments Code Status Date Activated 07/02/2017 4:32 PM Full Code 06/29/2017 4:03 PM This code status was determined by: Patient 06/30/2016 3:02 PM Full Code 06/15/2016 1:26 AM This code status was determined by: Patient 06/04/2016 4:08 PM Full Code 06/03/2016 2:07 AM This code status was determined by: Patient 04/23/2016 8:07 PM Full Code 04/13/2016 4:57 AM This code status was determined by: Patient 02/04/2016 8:12 PM Full Code 02/03/2016 10:11 AM This code status was determined by: Patient
--- OUTSIDE RECORDS SUMMARY | 2018-02-10 14:04 | XMS REPORT | Continuity of Care Document ---
Author Author [facility] Interface Address Unknown Phone Unavailable Problems Problem Status Onset Date Classification Date Reported Comments Source Discharge Diagnosis: Acute left-sided low back pain 08/19/2016 08/22/2016 [facility] BACK PAIN Active 08/19/2016 [facility] RECURRENT PANCREATITIS R/O BILIARY STONE Active 05/19/2016 [facility] R10.33 - PERIUMBILICAL PAIN Active 05/14/2016 [facility] Medications Medication Details Route Status Patient Instructions Ordering Provider Order Date Source Cyclobenzaprine hydrochloride 10 MG Oral Tablet [Flexeril] 10 mg=1 tab, PO, TID, PRN for spasm, # 18 tab, 0 Refill(s) No Longer Active 08/20/2016 [facility] Diazepam 2 MG Oral Tablet [Valium] 1-2 tab, PO, BID, PRN Pain, # 18 tab, 0 Refill(s) No Longer Active 08/20/2016 [facility] Ketorolac 60 mg, 2 mL, Route: IM, Drug form: INJ, ONCE, Dosing Weight 168.182, kg, Priority: STAT, Start date: 08/19/16 20:30:00 CDT, Stop date: 08/19/16 20:30:00 CDTNotes: (Same as:Toradol) IV bolus must be given >15 seconds. Give IM administration slowly and deeply into the muscle. Not for use > 4 days MEDICATION WASTE Product Size: 60 mg Product Wasted: ___ mg Inactive 08/20/2016 [facility] Morphine 4 mg, 1 mL, Route: IM, Drug form: INJ, ONCE, Dosing Weight 168.182, kg, Priority: STAT, Start date: 08/19/16 20:30:00 CDT, Stop date: 08/19/16 20:30:00 CDTNotes: (Same as:MORPhine Sulfate) Inactive 08/20/2016 [facility] Allergies, Adverse Reactions, Alerts Substance Category Reaction Severity Reaction type Status Date Reported Comments Source Bactrim Assertion Itching Drug allergy Active [facility] Immunizations Immunization Date Given Site Status Last Updated Comments Source Results Order Name Results Value Reference Range Date Interpretation Comments Source Abdomen wo contrast MRI Abdomen wo contrast MRI EXAM: MR ABDOMEN WITHOUT CONTRAST DATE: 05/22/2016 10:51 AM HAZ TECH INDICATION: Recurrent pancreatitis r/o biliary stone ADDITIONAL INFORMATION: None. COMPARISON: None. TECHNIQUE: Multiplanar, multisequence acquisition of the abdomen without intravenous contrast, per MRCP protocol. IV contrast: None. Enteric contrast: None. FINDINGS: Exam is limited by patient respiratory motion. Lines, tubes and hardware: None. Lower thorax: Clear. Hepatobiliary: Liver: Normal. Gallbladder and cystic duct: Normal. Intrahepatic bile ducts: Normal. Extrahepatic bile duct: Normal. No filling defects. Pancreatic duct: Normal caliber. Portal vein: Normal. Pancreas: A 1 x 1.4 x 1.7 cm cystic lesion is seen in the pancreatic head. MRCP images are limited by patient respiratory motion. No definite connection with the duodenum or main pancreatic duct is seen. Spleen: A 2.3 x 2 x 1.9 cm T2 hyperintense lesion is seen along the splenic capsule (series 501 image 34). Adrenals: Normal. Kidneys and ureters: Subcentimeter T2 hyperintense cysts are scattered in both kidneys. No hydronephrosis. Gastrointestinal tract: Normal caliber. Peritoneum, mesentery and retroperitoneum: Normal. No free air, ascites or loculated fluid. Lymph nodes: Normal. Vasculature: The aorta and IVC are normal in caliber. Bones: A 1.6 cm T2 hyperintense lesion in the L3 vertebral body likely represents a hemangioma. Multilevel degenerative changes with disc space narrowing are seen in the lower thoracic spine. A remote compression deformity of the superior endplate at L2 is seen with minimal height loss. Soft tissues: Normal. IMPRESSION: 1. No intra or extrahepatic biliary ductal dilatation. No common bile duct filling defects. 2. A 1.7 cm cystic lesion in the pancreatic head. MRCP is limited by patient respiratory motion. Differential considerations include duodenal diverticulum, pancreatic cyst, or sidebranch IPMN. Follow-up MRCP in one year is recommended. 3. A 2.3 cm lesion along the splenic capsule. Further evaluation with contrast enhanced CT of the abdomen is recommended. 05/22/2016 - - This report was dictated by a [employer] Operator/Fellow. I have personally reviewed the images as well as the Resident's interpretation and agree with the findings. Read by: Kristy Mcintyre Resident: Kristy Mcintyre Dictated Date/time: 05/24/16 09:26 Electronically Signed by: Mikhail Dong MD 05/24/16 09:35 FINAL REPORT [facility] Vital Signs Vital Sign Value Date Comments Source Systolic (mm Hg) 169 08/20/2016 [facility] Diastolic (mm Hg) 104 08/20/2016 [facility] Heart Rate 91 08/20/2016 [facility] Respitory Rate 16 08/20/2016 [facility] Heart Rate 92 08/20/2016 [facility] Temperature Oral (F) 98.3 F 08/20/2016 [facility] Respitory Rate 18 08/20/2016 [facility] Weight 168.182 08/20/2016 [facility] BMI Calculated 46.34 08/20/2016 [facility] Systolic (mm Hg) 179 08/20/2016 [facility] Diastolic (mm Hg) 108 08/20/2016 [facility] Height 190.5 cm 08/20/2016 [facility] Encounters Location Location Details Encounter Type Encounter Number Reason For Visit Attending Provider ADM Date DC Date Status Source [facility] Emergency [id number] Douglas Weathers 08/20/2016 08/20/2016 [facility] Procedures Procedure Code Date Perfomer Comments Source
[2018-02-10] MEDS ORDERED: NITROGLYCERIN 0.4 MG SUBL SL ONE (14:45)
[2018-02-10] MEDS ORDERED: ASPIRIN 81 MG CHEW TAB PO ONE ×2 (14:47→15:45)
--- NOTE | 2018-02-10 15:39 | Diagnostic Imaging Report ---
EXAM: CXR 2 VIEW - HOPD, PA and lateral DATE: 02/10/2018 Time stamp on exam: 3:08 PM INDICATION: Chest pain with shortness of breath COMPARISON: 01/29/2016 FINDINGS: LINES/TUBES: None LUNGS: Mild pulmonary vascular congestion. PLEURA: No effusions or pneumothorax. HEART AND MEDIASTINUM: Normal size and contour. Tortuous thoracic aorta. BONES AND SOFT TISSUES: Degenerative spurring of the spine. IMPRESSION: Mild pulmonary vascular congestion. Signed by: Dr. Vik Veronica DO on 02/10/2018 3:36 PM
[2018-02-10] MEDS ORDERED: SODIUM CHLORIDE FLUSH 10 ML SYR INJ PRN (15:45)
[2018-02-10] MEDS ORDERED: MORPHINE SULFATE 2 MG/ML SYR IV STA (15:59)
--- OUTSIDE RECORDS SUMMARY | 2018-02-10 16:05 | XMS REPORT | Clinical Summary ---
Author Author [facility] Address Unknown Phone Unavailable Care Team Providers Care Pin Sorter And Bagger Name Role Phone Chuck Barker Unavailable Fili [...] Use as 100 each 0 Insulin Pen [place] 4 mm directed. 7 x 32 G [...] by heart cath - 2006 - 12/03/2014 [facility] - Dr. 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 Budget Manager Hypertriglyceridemia 12/15/2012 HTN (hypertension) 10/18/2012 Diabetes [...] of insulin (HCC); Coronary artery disease involving shoalwater heart without angina pectoris, unspecified vessel or lesion type 10/13/2017 Emergency Emergency Medicine 10/13/2017 Orders Only General Internal Medicine Chnio Almendarez MD Chest pain, unspecified type (Primary Dx); Neck pain on left side; Morbid obesity (HCC); Essential hypertension; Hyperglycemia 08/17/2017 Emergency Emergency Medicine - 08/18/2017 08/17/2017 Orders Only General Internal Medicine Arthur Pinzon MD Vincent, Toicha Ann, MD Alagugurusamy, Rajkumar, MD Hyperglycemia (Primary Dx); Sepsis, due to unspecified organism (HCC); Acute diarrhea; Acute nonintractable headache, unspecified headache type 06/29/2017 [facility] General Internal Medicine - Encounter 07/02/2017 06/29/2017 [...] Taken Vital Sign Reading 01/31/2018 3:40 PM BLISTER RUST ERADICATOR Blood Pressure 112/69 01/31/2018 3:40 PM BLISTER RUST ERADICATOR Pulse 70 01/31/2018 11:57 AM BLISTER RUST ERADICATOR Temperature 36.1 C (97 F) 01/31/2018 11:57 AM BLISTER RUST ERADICATOR Respiratory Rate 20 01/31/2018 3:40 PM BLISTER RUST ERADICATOR Oxygen Saturation 97% 07/02/2017 5:38 AM CDT Inhaled Oxygen 21% Concentration 01/31/2018 11:57 AM BLISTER RUST ERADICATOR Weight 173.7 kg (383 lb) 01/31/2018 11:57 AM BLISTER RUST ERADICATOR Height 195.6 cm (6' 5") 01/31/2018 11:57 AM BLISTER RUST ERADICATOR Body Mass Index 45.42 Plan of Treatment Health Maintenance Due Date Last Done Comments INFLUENZA VACCINE 12/19/2017 Implants Device Identifier Shelf Expiration Date Model / Serial / Lot Implanted Type Area Manufactur er 12/18/2016 3752 / / [id number] Stent Panc Advanix [id number] Str 3752 Stents-Per N/A: Pancreas [place] - [id number] ipheral SCI:ENDO Implanted: Qty: 1 on 06/22/2016 by Madison Barnard MD Procedures Comments Procedure Name Priority Date/Time Associated Diagnosis CBC W/PLT COUNT & AUTO STAT 01/31/2018 DIFFERENTIAL 1:05 PM BLISTER RUST ERADICATOR LIPASE STAT 01/31/2018 1:05 PM BLISTER RUST ERADICATOR HEPATIC FUNCTION PANEL STAT 01/31/2018 1:05 PM BLISTER RUST ERADICATOR KETONE, BLOOD STAT 01/31/2018 1:05 PM BLISTER RUST ERADICATOR PHOSPHORUS STAT 01/31/2018 1:05 PM BLISTER RUST ERADICATOR MAGNESIUM STAT 01/31/2018 1:05 PM BLISTER RUST ERADICATOR TROPONIN I STAT 01/31/2018 1:05 PM BLISTER RUST ERADICATOR CBC W/PLT COUNT & AUTO STAT 01/31/2018 DIFFERENTIAL 1:05 PM BLISTER RUST ERADICATOR BASIC METABOLIC PANEL (7) STAT 01/31/2018 1:05 PM BLISTER RUST ERADICATOR ECG 12-LEAD Routine 01/31/2018 1:01 PM BLISTER RUST ERADICATOR Procedure Note - Interface, External Ris In - 01/31/2018 6:57 PM BLISTER RUST ERADICATOR Ventricula r Rate 68 BPM Atrial Rate 68 BPM P-R Interval 212 ms QRS Duration 118 ms Q-T Interval 402 ms QTC Calculatio n(Bazett) 427 ms P Erie 31 degrees R Erie -13 degrees T Erie 21 degrees Sinus rhythm with 1st degree A-V block Inferior infarct (cited on or before 8) Cannot rule out Anterior infarct (cited on or before 8) Abnormal ECG When compared with ECG of 12:51, TN interval has increased QRS duration has increased ECG 12-LEAD STAT 01/31/2018 1:01 PM BLISTER RUST ERADICATOR POCT-GLUCOSE METER Routine 01/31/2018 12:20 PM BLISTER RUST ERADICATOR ED ECG INTERPRETATION Routine 12/11/2017 10:24 PM CDT BASIC METABOLIC PANEL (7) STAT 12/06/2017 2:51 PM CDT ECG 12-LEAD Routine 12/06/2017 12:51 PM CDT Procedure Note - Interface, External Ris In - 12/06/2017 6:21 PM CDT Ventricula r Rate 67 BPM Atrial Rate 67 BPM P-R Interval 168 ms QRS Duration 96 ms Q-T Interval 428 ms QTC Calculatio n(Bazett) 452 ms P Erie 102 degrees R Erie -29 degrees T Erie 3 degrees Normal sinus rhythm Inferior infarct [...] ms QTC Calculatio n(Bazett) 417 ms P Erie 29 degrees R Erie -22 degrees T [place] 26 degrees Sinus bradycardi a Otherwise normal [...] ms QTC Calculatio n(Bazett) 451 ms P Erie 37 degrees R Erie -42 degrees T Erie 23 degrees Normal sinus rhythm Left axis [...] ms QTC Calculatio n(Bazett) 435 ms P Erie 60 degrees R Erie -42 degrees T Erie 24 degrees Normal sinus rhythm Left axis [...] ms QTC Calculatio n(Bazett) 467 ms P Erie 38 degrees R Erie -35 degrees T Erie 39 degrees Normal sinus rhythm Left axis deviation Abnormal ECG When compared with ECG of 8 11:00, Incomplete right bundle branch block is no longer Present ECG 12-LEAD Routine 06/29/2017 2:53 PM CDT POCT-GLUCOSE METER Routine 06/29/2017 2:50 PM CDT XR CHEST 1 VIEW STAT 04/21/2017 PORTABLE/BEDSIDE 2:15 PM BLISTER RUST ERADICATOR CBC W/PLT COUNT & AUTO STAT 04/21/2017 DIFFERENTIAL 11:23 AM BLISTER RUST ERADICATOR TROPONIN I STAT 04/21/2017 11:23 AM BLISTER RUST ERADICATOR B-TYPE NATRIURETIC FACTOR STAT 04/21/2017 (BNP) 11:23 AM BLISTER RUST ERADICATOR PT/APTT STAT 04/21/2017 11:23 AM BLISTER RUST ERADICATOR CBC W/PLT COUNT & AUTO STAT 04/21/2017 DIFFERENTIAL 11:23 AM BLISTER RUST ERADICATOR CREATINE KINASE (CK), STAT 04/21/2017 TOTAL AND MB 11:23 AM BLISTER RUST ERADICATOR MAGNESIUM STAT 04/21/2017 11:23 AM BLISTER RUST ERADICATOR BASIC METABOLIC PANEL (7) STAT 04/21/2017 11:23 AM BLISTER RUST ERADICATOR ECG 12-LEAD Routine 04/21/2017 11:00 AM BLISTER RUST ERADICATOR Procedure Note - Interface, External Ris In - 04/21/2017 7:01 PM BLISTER RUST ERADICATOR Ventricula r Rate 102 BPM Atrial Rate 102 BPM P-R Interval 178 ms QRS Duration 114 ms Q-T Interval 374 ms QTC Calculatio n(Bazett) 487 ms P Erie 37 degrees R Erie -42 degrees T Erie 40 degrees Sinus tachycardi a Left axis deviation Incomplete right bundle branch block Minimal voltage criteria for LVH, may be normal variant Cannot rule out Anterior infarct , age undetermin ed Abnormal ECG When compared with ECG of 7 20:00, QRS axis Shifted left ECG 12-LEAD STAT 04/21/2017 11:00 AM BLISTER RUST ERADICATOR after 02/09/2017 Results * CBC with platelet count + automated diff (01/31/2018 1:05 PM BLISTER RUST ERADICATOR) Only the most recent of 9 results within the time period is included. WBC 5.4 3.5 - 10.5 K/L [facility] RBC 5.07 4.63 - 6.08 M/L [facility] Hemoglobin 16.4 13.7 - 17.5 GM/DL [facility] Hematocrit 45.3 40.1 - 51.0 % [facility] MCV 89.3 79.0 - 92.2 fL [facility] MCH 32.3 (H) 25.7 - 32.2 pg [facility] MCHC 36.2 32.3 - 36.5 GM/DL [facility] RDW 13.5 11.6 - 14.4 % [facility] Platelets 153 150 - 450 K/CU MM [facility] MPV 12.0 9.4 - 12.4 fL [facility] nRBC 0 0 - 0 /100 WBC [facility] % Neutros 60 % [facility] % Lymphs 30 % [facility] % Monos 7 % [facility] % Eos 2 % [facility] % Baso 1 % [facility] # Neutros 3.25 1.78 - 5.38 K/L [facility] # Lymphs 1.60 1.32 - 3.57 K/L [facility] # Monos 0.38 0.30 - 0.82 K/L [facility] # Eos 0.11 0.04 - 0.54 K/L [facility] # Baso 0.03 0.01 - 0.08 K/L [facility] Immature 1 0 - 1 % [facility] Granulocytes-Relative [facility] Specimen Blood - Arm, Left Performing Organization Address City/[facility] Facility[facility] Phone Number [address] * Troponin I (01/31/2018 1:05 PM BLISTER RUST ERADICATOR) Only the most recent of 7 results within the time period is included. Troponin I <0.01 0.00 - 0.03 ng/mL [facility] Specimen Blood - Arm, Left Performing Organization Address City/[facility] [place] [address] [phone] * Phosphorus (01/31/2018 1:05 PM BLISTER RUST ERADICATOR) Only the most recent of 3 results within the time period is included. Phosphorus 2.3Comment: Specimen markedly 2.3 - 4.7 mg/dL [facility] hemolyzed [facility] Specimen Blood - Arm, Left Performing Organization Address City/State/[facility] Phone Number [address] * Magnesium (01/31/2018 1:05 PM BLISTER RUST ERADICATOR) Only the most recent of 8 results within the time period is included. Magnesium 3.5 (H)Comment: Specimen 1.6 - 2.6 mg/dL [facility] Specimen Blood - Arm, Left Performing Organization Address [facility] Phone Number [address] * Lipase (01/31/2018 1:05 PM BLISTER RUST ERADICATOR) Only the most recent of 5 results within the time period is included. Lipase 46 8 - 78 U/L [facility] Specimen Blood - Arm, Left Performing Organization Address [facility] Phone Number [address] * Ketones, blood (01/31/2018 1:05 PM BLISTER RUST ERADICATOR) Only the most recent of 4 results within the time period is included. Ketones, Blood 0.2 <0.4 mmol/L [facility] Specimen Blood - Arm, Left Performing Organization Address [facility] Phone Number [address] * Hepatic function panel (01/31/2018 1:05 PM BLISTER RUST ERADICATOR) Only the most recent of 3 results within the time period is included. Protein, Total 9.0 (H)Comment: Specimen 6.0 - 8.3 gm/dL [facility] Albumin 4.0Comment: Specimen markedly 3.5 - 5.0 g/dL [facility] Total Bilirubin 0.5Comment: Specimen markedly 0.2 - 1.2 mg/dL [facility] hemolyzed [facility] Bilirubin, Direct <0.1 (L)Comment: Specimen 0.1 - 0.5 mg/dL [facility] markedly hemolyzed [facility] Alkaline Phosphatase 96 40 - 150 U/L [facility] AST 38 (H)Comment: Specimen 5 - 34 U/L [facility] markedly hemolyzed [facility] ALT 25Comment: Specimen markedly 6 - 55 U/L [facility] Specimen Blood - Arm, Left Narrative Performed At Specimen markedly lipemic [facility] Performing Organization Address [facility] Facilitycout Phone Number [facility] [address] [place] [address] [facility] * Basic Metabolic Panel (01/31/2018 1:05 PM BLISTER RUST ERADICATOR) Only the most recent of 11 results within the time period is included. Sodium 131 (L) 136 - 145 meq/L [facility] Potassium 4.0Comment: Specimen markedly 3.5 - 5.1 meq/L [facility] Chloride 101 98 - 107 meq/L [facility] CO2 14 (L) 22 - 29 meq/L [facility] BUN 19 7 - 21 mg/dL [facility] Creatinine 1.21Comment: Specimen markedly 0.57 - 1.25 mg/dL [facility] Glucose 299 (H) 70 - 105 mg/dL [facility] Calcium 9.7 8.4 - 10.2 mg/dL [facility] EGFR 64Comment: ESTIMATED GFR IS mL/min/1.73 sq m [facility] NOT ACCURATE CREATININE [facility] CLEARANCE IN PREDICTING GLOMERULAR FILTRATION RATE. ESTIMATED GFR IS NOT APPLICABLE FOR DIALYSIS PATIENTS. Specimen Blood - Arm, Left Performing Organization Address [facility] Facilitycode Phone Number [facility] [address] [place] [address] [phone] [place] [address] * ECG 12 lead (01/31/2018 1:01 PM BLISTER RUST ERADICATOR) Only the most recent of 7 results within the time period is included. Narrative Performed At Ventricular Rate 68 BPM [facility] Atrial Rate 68 BPM P-R Interval 212 ms QRS Duration 118 ms Q-T Interval 402 ms QTC Calculation(Bazett) 427 ms P Erie 31 degrees R Erie -13 degrees T Erie 21 degrees Sinus rhythm with 1st degree A-V block Inferior infarct (cited on or before 06-DEC-2017) Poor R wave progression Cannot rule out Anterior infarct (cited on or before 06-DEC-2017) Abnormal ECG When compared with ECG of 06-DEC-2017 12:51, TN interval has increased QRS duration has increased Confirmed by Kati SMITH BASANT ([id number]) on 02/01/2018 10:40:10 AM Procedure Note Interface, External Ris In - 02/01/2018 10:40 AM BLISTER RUST ERADICATOR Ventricular Rate 68 BPM Atrial Rate 68 BPM P-R Interval 212 ms QRS Duration 118 ms Q-T Interval 402 ms QTC Calculation(Bazett) 427 ms P Erie 31 degrees R Erie -13 degrees T [place] 21 degrees Sinus rhythm with 1st degree A-V block Inferior infarct (cited on or before 06-DEC-2017) Poor R wave progression Cannot rule out Anterior infarct (cited on or before 06-DEC-2017) Abnormal ECG When compared with ECG of 06-DEC-2017 12:51, TN interval has increased QRS duration has increased Confirmed by Kati SMITH BASANT ([id number]) on 02/01/2018 10:40:10 AM Performing Organization Address City/State/Zipcode Phone Number GE MUSE * POC-Glucose meter (01/31/2018 12:20 PM BLISTER RUST ERADICATOR) Only the most recent of 17 results within the time period is included. POC-Glucose Meter 287 (H)Comment: TESTED AT 70 - 110 mg/dL [facility] [address] [facility] [address] Specimen Blood Performing Organization Address City/[facility]/Zipcode Phone Number [facility] [address] [place] [address] [phone] [address] * ED ECG Interpretation (12/11/2017 10:24 [...] delay. ST segments abnormal. T waves abnormal. Erie is normal. Other findings: no other findings. Right sided lead use: right-sided leads not used. Left sided lead use: Posterior leads were not used. Clinical Impression: abnormal ECGECG reviewed and does not meet STEMI criteria. * Urinalysis w/Microscopic (12/06/2017 12:47 PM CDT) Only the most recent of 2 results within the time period is included. Color, UA Light Yellow [facility] Clarity, UA Clear [facility] Specific [place], UA 1.015 1.001 - 1.035 [facility] pH, UA 5.5 5.0 - 8.0 [facility] Protein, UA 20 mg/dL (A) Negative [facility] Glucose, UA >1000 mg/dL (A) Negative [facility] Ketones, UA Negative Negative [facility] Bilirubin, UA Negative Negative [facility] Blood, UA Negative Negative [facility] Nitrite, UA Negative Negative [facility] Leukocytes, UA Negative Negative [facility] Urobilinogen, UA 0.2 0.2 - 1.0 mg/dL [facility] RBC, UA <1 /HPF [facility] WBC, UA <1 /HPF [facility] Mucus Rare [facility] Squam Epithel, UA <1 /HPF [facility] Specimen Source Urine, Voided [facility] Specimen Urine - Urine, Voided Performing Organization Address City/[facility]/Zipcode Phone Number [facility] [address] [place] [address] [phone] [place] [address] * Blood gas, venous (12/06/2017 12:40 PM CDT) Only the most recent of 3 results within the time period is included. pH, Rahat 7.41 7.32 - 7.42 [facility] pCO2, Rahat 44 41 - 51 mmHg [facility] pO2, Rahat 33 25 - 40 mmHg [facility] O2 Sat, Rahat 67.3 40.0 - 70.0 % [facility] HCO3, Rahat 27 21 - 29 mmol/L [facility] Base Excess, Rahat 1.6 -2.0 - 3.0 mmol/L [facility] Patient Temperature 36.0 C [facility] FIO2 21.0 % [facility] Specimen Blood - Arm, Left Performing Organization Address [facility] Facilitycout Phone Number [facility] [address] [place] [address] [phone] [place] [address] * Creatine Kinase (CK), Total and MB (not available at [facility]) (12/06/2017 12:37 PM CDT) Only the most recent of 4 results within the time period is included. Total CK 188 29 - 200 U/L [facility] CK-MB 3.1 0.0 - 6.6 ng/mL [facility] MB Relative Index 1.6 % [facility] Specimen Blood - Arm, Left Narrative Performed At CK-MB Reference Range: [facility] <6.7Normal [facility] 6.7-10.0Borderline >10.0 Abnormal Performing Organization Address City/[facility] Facilitycode Phone Number [facility] [address] [place] [address] [facility] * CT chest without contrast (11/04/2017 [...] MD Report Verified Date/Time:11/04/2017 14:32:02 Reading Location: [facility] Radiology Reading Room Procedure Note Interface, External [...] Report Verified Date/Time: 11/04/2017 14:32:02 Reading Location: [facility] Radiology Reading Room Performing Organization Address City/[facility] Facility[facility] Phone Number [facility] * XR [...] MD Report Verified Date/Time:11/04/2017 14:18:53 Reading Location: [facility] Radiology Reading Room Procedure Note Interface, External [...] Report Verified Date/Time: 11/04/2017 14:18:53 Reading Location: [facility] Radiology Reading Room Performing Organization Address City/State/Zipcode Phone Number [facility] * PT/PTT (11/04/2017 12:57 PM CDT) Only the most recent of 2 results within the time period is included. Protime 15.9 (H) 11.7 - 14.7 seconds [facility] INR 1.3 <=5.9 [facility] PTT 28.7 22.5 - 36.0 seconds [facility] Specimen Blood - Arm, Right Narrative Performed At RECOMMENDED COUMADIN/WARFARIN INR THERAPY RANGES [facility] STANDARD DOSE: 2.0 - 3.0 Includes: PROPHYLAXIS for venous thrombosis, [facility] systemic embolization; TREATMENT for venous thrombosis and/or pulmonary embolus. HIGH RISK: Target INR is 2.5-3.5 for patients with mechanical heart valves. Performing Organization Address City/[facility] Facility[facility] Phone Number [address] * Amylase (11/04/2017 12:57 PM CDT) Amylase 41 25 - 125 U/L [facility] Specimen Blood - Arm, Right Performing Organization Address [facility] Phone Number [address] * B-type Natriuretic Factor (BNP) (10/13/2017 1:16 PM CDT) Only the most recent of 4 results within the time period is included. BNP 27 0 - 100 pg/mL [facility] Specimen Blood Performing Organization Address [facility] Phone Number [address] * Cardiac Enzymes - CPK (10/13/2017 1:16 PM CDT) Total CK 148 29 - 200 U/L [facility] Specimen Blood Performing Organization Address [facility] [place] [address] [phone] [place] [address] * RHYTHM STRIP - SCAN (07/05/2017 8:42 AM CDT) Narrative Performed At * Blood gas, arterial (07/02/2017 5:37 AM CDT) pH, Arterial 7.39 7.35 - 7.45 [facility] pCO2, Arterial 44 35 - 45 mmHg [facility] pO2, Arterial 66 (L) 80 - 90 mmHg [facility] O2 Sat, Arterial 93.3 (L) 96.0 - 97.0 % [facility] HCO3, Arterial 26 21 - 29 mmol/L [facility] Base Excess, Arterial 0.8 -2.0 - 3.0 mmol/L [facility] Patient Temperature 36.7 C [facility] FIO2 21.0 % [facility] Specimen Blood, Arterial Performing Organization Address City/[facility] Facility[facility] Phone Number [address] [address] [facility] * Lactic acid, venous, whole blood (07/01/2017 6:27 PM CDT) Only the most recent of 5 results within the time period is included. Lactate, Venous 2.2Comment: Specimen markedly 0.5 - 2.2 mmol/L [facility] hemolyzed [facility] Specimen Blood Narrative Performed At Effective 07/23/2015: Units/Reference Range Change [facility] New: 0.5-2.2 mmol/LPrevious: 5-20 mg/dL [facility] Specimen markedly lipemic Performing Organization Address City/[facility] Facility[facility] Phone Number [facility] [address] [place] [address] [facility] * Manual Differential (07/01/2017 4:38 AM CDT) Only the most recent of 2 results within the time period is included. Total Counted [facility] WBC Morphology Normal [facility] Platelet Morphology Normal [facility] RBC Morphology Normal [facility] Specimen Blood - Arm, Left Performing Organization Address City/[facility] Phone Number [facility] [address] [place] [address] [facility] * Clostridium difficile [facility] Toxin (06/30/2017 9:04 PM CDT) C. Difficle Toxin Negative Negative [facility] C. Difficile [facility] Antigen NegativeComment: No indication Negative [facility] of Clostridium difficile [facility] infection and no colonization. Discontinue enteric isolation and therapy. Specimen Stool - Stool Narrative Performed At Testing performed by [employer] Rapid Cassette Assay.For [facility], published [facility] sensitivity of the assay is 98.7% compared to cytotoxicity testing.For Toxin [facility] AB, published sensitivity is 87.8% and specificity [...] HOSPITAL Microbiology Lab prior to clinical use. Performing Organization Address City/[facility]/Zipcode Phone Number [address] * STOOL PATH CHARGE (06/30/2017 9:04 PM CDT) Pathogen exam charged Done [facility] Specimen Stool - Stool Performing Organization Address City/[facility] Phone Number [address] * Stool culture + Shiga toxin (06/30/2017 9:04 PM CDT) Result No Salmonella, Shigella or [facility] Campylobacter isolated [facility] Specimen Stool - Stool Narrative Performed At [facility] Performing Organization Address City/[facility]/Zipcode Phone Number [address] * Hemoglobin A1c (06/30/2017 1:04 AM CDT) Hemoglobin A1C 13.7 (H) 4.3 - 6.1 % [facility] Specimen Blood Performing Organization Address City/[facility] Phone Number [facility] [facility] [address] [place], [place] [id number] [facility] * Lipid panel (06/30/2017 1:04 AM CDT) Triglycerides 5,383Comment: Specimen mg/dL [facility] markedly hemolyzed [facility] Cholesterol 451Comment: Specimen markedly mg/dL [facility] hemolyzed [facility] HDL 12 mg/dL [facility] Specimen Blood Narrative Performed At Calculated LDL not valid if triglyceride >400 mg/dL [facility] Triglyceride Reference Range: [facility] Low Risk <150 [id number] High Risk 200-499 Very High Risk>=500 Cholesterol Reference Range: Low Risk <200 [id number] High Risk>240 HDL Cholesterol Reference Range: Low Risk >=60 High Risk <40 LDL Cholesterol Reference Range: Optimal<100 Near [id number] Very High >=190 Specimen markedly lipemic Performing Organization Address City/State/Zipcode Phone Number [facility] [address] [place] [address] [facility] * CT abdomen/pelvis with IV contrast (06/29/2017 9:46 PM CDT) Narrative Performed At FINAL REPORT [facility] CT, ABDOMEN \\T\\ PELVIS, WITH IV CONTRAST [...] MD Report Verified Date/Time:06/29/2017 21:51:53 Reading Location: [address] Reading Room Procedure Note Interface, External [...] Report Verified Date/Time: 06/29/2017 21:51:53 Reading Location: [address] Transitional Reading Room Performing Organization Address City/State/Zipcode Phone Number [facility] * CT brain without IV contrast (06/29/2017 7:34 PM CDT) Narrative Performed At FINAL REPORT [facility] CT head without contrast 06/29/2017 7:34 PM [...] MD Report Verified Date/Time:06/29/2017 19:36:58 Reading Location: [facility] Radiology Reading Room Procedure Note Interface, External [...] Report Verified Date/Time: 06/29/2017 19:36:58 Reading Location: [facility] Radiology Reading Room Performing Organization Address City/[facility]/Zipcode Phone Number [facility] * CRITICAL CARE [...] Result No growth in 5 days [facility] Specimen Blood - Arm, Left Performing Organization Address City/State/[facility] Phone Number [facility] [address] [place], [place] [phone] [facility] * POC-Lactic Acid, Venous (06/29/2017 3:43 PM CDT) POC-Lactic Acid, Venous 2.4 (H)Comment: TESTED AT 0.9 - 1.7 mmol/L [facility] [address] [place] [id number] Specimen Blood Performing Organization Address [facility] Phone Number [facility] [address] [place] [address] [facility] * Urinalysis w/Microscopic + Reflex to Culture - Cath (06/29/2017 2:54 PM CDT) Color, UA Light Yellow [facility] Clarity, UA Clear [facility] Specific [place], UA 1.019 1.001 - 1.035 [facility] pH, UA 6.0 5.0 - 8.0 [facility] Protein, UA 10 mg/dL (A) Negative [facility] Glucose, UA >1000 mg/dL (A) Negative [facility] Ketones, UA Negative Negative [facility] Bilirubin, UA Negative Negative [facility] Blood, UA Negative Negative [facility] Nitrite, UA Negative Negative [facility] Leukocytes, UA Negative Negative [facility] Urobilinogen, UA 0.2 0.2 - 1.0 mg/dL [facility] RBC, UA 0 /HPF [facility] WBC, UA <1 /HPF [facility] Squam Epithel, UA <1 /HPF [facility] Specimen Source [facility] Specimen Urine - Urine, Voided Performing Organization Address City/State/Zipcode Phone Number [facility] [address] [place], [place] [phone] [facility] * Urine culture (06/29/2017 2:54 PM CDT) Result >100,000 col/mL skin omar [facility] Specimen Urine Performing Organization Address City/[facility]/Zipcode Phone Number [facility] [address] [place] [address] [facility] * Comprehensive metabolic panel (06/29/2017 2:54 PM CDT) Protein, Total 12.8 (H)Comment: Specimen 6.0 - 8.3 gm/dL [facility] Albumin 4.0Comment: Specimen markedly 3.5 - 5.0 g/dL [facility] Alkaline Phosphatase 102 40 - 150 U/L [facility] Total Bilirubin 0.3Comment: Specimen markedly 0.2 - 1.2 mg/dL [facility] Sodium 121 (L) 136 - 145 meq/L [facility] Potassium 5.5 (H)Comment: Specimen 3.5 - 5.1 meq/L [facility] markedly hemolyzed [facility] Chloride 93 (L) 98 - 107 meq/L [facility] CO2 19 (L) 22 - 29 meq/L [facility] BUN 24 (H) 7 - 21 mg/dL [facility] Creatinine 1.56 (H)Comment: Specimen 0.57 - 1.25 mg/dL [facility] markedly hemolyzed [facility] Glucose 728 (HH) 70 - 105 mg/dL [facility] Calcium 9.3 8.4 - 10.2 mg/dL [facility] AST 47 (H)Comment: Specimen 5 - 34 U/L [facility] markedly hemolyzed [facility] ALT 28Comment: Specimen markedly 6 - 55 U/L [facility] hemolyzed [facility] EGFR 48Comment: ESTIMATED GFR IS mL/min/1.73 sq m [facility] NOT ACCURATE CREATININE [facility] CLEARANCE IN PREDICTING GLOMERULAR FILTRATION RATE. ESTIMATED GFR IS NOT APPLICABLE FOR DIALYSIS PATIENTS. Specimen Blood Narrative Performed At Specimen markedly lipemic [facility] Performing Organization Address City/State/Zipcode Phone Number [facility] [address] [place], [place] [phone] [facility] after 02/09/2017 Insurance Payer Benefit Subscriber ID Type Phone Address Plan / Group [employer] HMO xxxxxxxxxxxx HMO/POS [phone] [address] [place] [address] TIALS OTHER-COMMERCIAL GENERIC xxxxxxxxxxxxx COMMERCIAL Advance Directives For more information, please contact: [facility] [address] [place] [address] Date Inactivated Comments Code Status [...]
[2018-02-10] MEDS: MORPHINE SULFATE 2 MG/ML SYR IV PRN ×3 (17:02→23:00)
[2018-02-10 17:52] VITALS: BP 126/83
[2018-02-10 18:05] VITALS: BP 126/83
[2018-02-10 18:21] LABS: INR 0.99
[2018-02-10 18:37] LABS: CREATINE KINASE MB 3.2 ng/mL (0-5.0)
[2018-02-10 19:50] VITALS: BP 107/64
[2018-02-10 20:00] VITALS: BP 107/64
[2018-02-10] MEDS ORDERED: ALBUTEROL SULFATE HFA 8GM INHALATION AEROSOL INH PRN (21:15)
[2018-02-10] MEDS ORDERED: HYDROCODONE/APAP 10MG-325MG TAB PO PRN (21:15)
[2018-02-10] MEDS ORDERED: [UNRECOGNIZED DRUG - REMARK] PO PRN (21:15)
[2018-02-10] MEDS ORDERED: ATORVASTATIN 40 MG TAB PO SCH (22:00)
[2018-02-10] MEDS ORDERED: DEXTROSE 50% SYRINGE 50 ML IV PRN (22:00)
[2018-02-10] MEDS ORDERED: NON-FORMULARY MEDICATION (Atorvastatin Calcium 40 MG) PO SCH (22:00)
[2018-02-11 00:45] VITALS: BP 125/79
[2018-02-11] MEDS: MORPHINE SULFATE 2 MG/ML SYR IV PRN ×2 (02:23→05:43)
[2018-02-11 05:30] VITALS: BP 136/80
[2018-02-11 05:57] LABS: CREATINE KINASE MB 2.5 ng/mL (0-5.0)
[2018-02-11] MEDS ORDERED: LEVOTHYROXINE SODIUM 100 MCG TAB PO SCH (06:00)
[2018-02-11 06:12] LABS: CHOL/HDL RATIO 9.4 (3.9-4.7); CHOLESTEROL 254 MD/DL (0-199); HDL CHOLESTEROL 27 MG/DL (40-60)
[2018-02-11 06:13] LABS: TRIGLYCERIDES 1098 MG/DL (0-149)
[2018-02-11] MEDS ORDERED: TYLENOL # 31 EA PO (07:05)
[2018-02-11] MEDS ORDERED: INSULIN LISPRO 100 UNIT/1 ML 3ML VIAL SQ SCH (07:30)
[2018-02-11 08:07] VITALS: BP 122/58
[2018-02-11] MEDS: INSULIN LISPRO 100 UNIT/1 ML 3ML VIAL SQ SCH ×3 (09:00→16:50)
[2018-02-11] MEDS ORDERED: LEVEMIR 20 UNIT SQ SCH (09:00)
[2018-02-11] MEDS ORDERED: PANTOPRAZOLE SOD 40 MG TABEC PO SCH (09:00)
[2018-02-11] MEDS ORDERED: FENOFIBRATE 48 MG TAB PO SCH (09:00)
[2018-02-11] MEDS: METOCLOPRAMIDE HCL 10 MG TAB PO SCH ×3 (09:00→17:16)
[2018-02-11] MEDS ORDERED: FENOFIBRATE 48 MG PO SCH (09:00)
[2018-02-11] MEDS ORDERED: LEVOTHYROXINE SODIUM 50 MCG TAB PO SCH (09:00)
[2018-02-11] MEDS ORDERED: SERTRALINE HCL 50 MG TAB PO SCH (09:00)
[2018-02-11] MEDS: ACETAMINOPHEN/CODEINE 300MG - 30MG TAB PO PRN ×2 (09:00→17:30)
[2018-02-11] MEDS: CARVEDILOL 3.125 MG TAB PO SCH ×2 (09:00→17:16)
[2018-02-11] MEDS ORDERED: CLOPIDOGREL BISULFATE 75 MG TAB PO SCH (09:00)
[2018-02-11] MEDS ORDERED: INSULIN DETEMIR 100 UNIT/ML PEN SQ SCH (09:00)
[2018-02-11 12:09] VITALS: BP 135/71
[2018-02-11 16:27] VITALS: BP 131/88
--- NOTE | 2018-02-11 17:42 | Diagnostic Imaging Report ---
EXAMINATION: CT of the chest with contrast, PE protocol. TECHNIQUE: Spiral CT images of the chest were performed from the lung apices through the level of the adrenal glands after the IV administration of 150 cc of Isovue 370. Thin section reconstructions were obtained with special concentration on the pulmonary arteries. Coronal and sagittal reformatted images were performed. COMPARISON: <none> CLINICAL HISTORY:Chest pain, hypertension DISCUSSION: Limited exam due to suboptimal contrast bolus timing. Lungs: No filling defects are identified in the main, right or left pulmonary arteries to their first order branches. Segmental and subsegmental branches cannot be evaluated. Linear opacity in the left upper lobe (3, image 45), likely representing subsegmental atelectasis or scarring. No consolidation, nodules or masses. Airways are clear, without endobronchial lesions. Pleura: <There is no evidence of pleural effusion or pneumothorax.> Heart and mediastinum: Thyroid is unremarkable. Heart size is normal. No pericardial effusion. Extensive atherosclerotic calcification of the coronary arteries. Aorta is nonaneurysmal. Main pulmonary artery is enlarged, measuring 3.8 cm. Lymph nodes: No mediastinal, hilar or axillary adenopathy. Abdomen: The visualized portions of the abdomen show unremarkable pancreas, left kidney and adrenal glands. Diffuse hepatic steatosis. 2.4 cm partially exophytic hypodense lesion in the posterior spleen (series 2, image 108), which may represent a cyst or less likely a hemangioma. Bones and soft tissues: No aggressive lytic lesions. Degenerative disc changes in the thoracic spine. IMPRESSION: 1. Exam is limited by suboptimal contrast bolus timing. Segmental and subsegmental branches cannot be evaluated. 2. No filling defects identified in the main, right or left pulmonary arteries to the first order branches. 3. No consolidation, nodules or masses. 4. Main pulmonary artery is enlarged, suggesting pulmonary hypertension. 5. Diffuse hepatic steatosis. Signed by: Dr. Omero Weinberg M.D. on 02/11/2018 5:39 PM
[2018-02-11] MEDS ORDERED: SODIUM CHLORIDE 0.9% 100 ML 200 ML ONE (20:14)
[2018-02-11] MEDS ORDERED: IOPAMIDOL 370 MG/ML 200 ML INFUS..BTL INJ ONE (20:14)
[2018-02-11] MEDS ORDERED: BACLOFEN 10 MG TAB PO SCH (21:00)
[2018-02-11] MEDS ORDERED: GABAPENTIN 300 MG CAP PO SCH (21:00)
== END 2018-02-11 19:30 | disposition home or self-care (01) ==
LOC: FSED 14:00 → ERHOLD 15:44 → IMCU 17:36
PROVIDERS: ADMIT Internal Medicine; ATTEND Internal Medicine
DX: R07.89 Other chest pain (principal); E11.65 Type 2 diabetes mellitus with hyperglycemia; E66.01 Morbid (severe) obesity due to excess calories; D69.6 Thrombocytopenia, unspecified; I10 Essential (primary) hypertension; Z87.442 Personal history of urinary calculi; Z87.891 Personal history of nicotine dependence; Z68.44 Body mass index [BMI] 60.0-69.9, adult
CPT/HCPCS: 36415 ×2; 71046; 71275; 80053; 80061; 82550 ×2; 82553 ×2; 82948 ×2; 83880; 84484 ×2; 85610; 85730; 93306; 96376; 99284; G0378 ×2; J2270 ×2; Q9967; S0164; 96374

== ENCOUNTER 2018-12-07 00:12 | Inpatient (IN) | payer BC ==
[2018-12-07] VITALS (7 sets, daily range): BP systolic 159–179; BP diastolic 90–106
[~2018-12-07] VITALS: Ht 195.6 cm; Wt 166.2 kg
[~2018-12-07 00:12] MED LIST changes: +TYLENOL # 31 EA PO
--- OUTSIDE RECORDS SUMMARY | 2018-12-07 00:16 | XMS REPORT | Continuity of Care Document ---
Author Author [place] Address Unknown Phone Unavailable Care Team Providers Care Director [facility] Name Role Phone [email or web address] Information Exchange Unavailable Unavailable Problems Problem Status Onset Date Classification Date Reported Comments Source Abdominal pain Active Problem 02/12/2018 [facility] Chest pain Active Problem 02/12/2018 [facility] Diabetes mellitus Active Problem 02/12/2018 [facility] Hyperglycemia Active Problem 02/12/2018 [facility] Hypertension Active Problem 02/12/2018 [facility] Obesity Active Problem 02/12/2018 [facility] Poorly controlled diabetes mellitus Active Problem 02/12/2018 [facility] Thrombocytopenia Active Problem 02/12/2018 [facility] Urinary tract infection Active Problem 02/12/2018 [facility] Unstable angina pectoris Active Problem 02/12/2018 [facility] Vomiting and diarrhea Active Problem 02/12/2018 [facility] Medications Medication Details Route Status Patient Instructions Ordering Provider Order Date Source Hydrocodone Bit/Acetaminophen (Kersey 10-325 Tablet) 1 Each Tablet, Every 6 Hours as needed for Pain Active 02/11/2018 [facility] Carvedilol (Coreg) 3.125 Mg Tab Every 12 Hours Active [place] 10/03/2016 [facility] Hydroxyzine Hcl 25 Mg Tablet Every 8 Hours as needed for Itching Active [place] 10/03/2016 [facility] Insulin Detemir 100 Unit/Ml Pen Every 12 Hours Active [place] 10/03/2016 [facility] Metoclopramide Hcl 10 Mg Tablet Before Meals And At Bedtime Active [place] 10/03/2016 [facility] Carvedilol 25 Mg Tablet, 6.25 Mg Oral Every Morning Active 10/03/2016 [facility] Insulin Lispro (Humalog) 100 Unit/1 Ml Insuln.pen, 80 Units Sub-Q Before Meals Active 10/03/2016 [facility] Acetaminophen With Codeine (Tylenol With Codeine #3 Tablet) 1 Each Tablet, 1 Tab Oral Every 4 Hours Active 10/01/2016 [facility] Albuterol Sulfate (Albuterol Sulfate Hfa) 8.5 Gm Hfa.aer.ad, 2 Dose Inhalation Every 6 Hours as needed for Shortness Of Breath Active 10/01/2016 [facility] Amlodipine Besylate/Benazepril (Amlodipine-Benazepril 10-40 Mg) 1 Each Capsule, 1 Tab Oral Daily Active 10/01/2016 [facility] Aspirin (Aspir 81) 81 Mg Tablet.dr, 81 Mg Oral Daily Active 10/01/2016 [facility] Butalbital/Aspirin/Caffeine (Fiorinal 50-325-40 Mg Capsule) 1 Each Capsule, 1 Cap Oral Every 4 Hours as needed for Ain Active 10/01/2016 [facility] Cyclobenzaprine Hcl 10 Mg Tablet, 10 Mg Oral Three Times A Day as needed for Pain Active 10/01/2016 [facility] Famotidine (Pepcid) 20 Mg Tablet, 20 Mg Oral Twice A Day Active 10/01/2016 [facility] Hydralazine Hcl 50 Mg Tablet, 10 Mg Oral Three Times A Day Active 10/01/2016 [facility] Hydroxyzine Hcl 25 Mg Tablet, 25 Mg Oral Twice A Day Active 10/01/2016 [facility] Insulin Aspart (Novolog Mix 70-30 Vial) 100 Units/Ml Ml, 60 Units Sub-Q Three Times A Day Active 10/01/2016 [facility] Isosorbide Mononitrate (Isosorbide Mononitrate Er) 30 Mg Tab.er.24h, 30 Mg Oral Daily Active 10/01/2016 [facility] Meloxicam 7.5 Mg Tablet, 15 Mg Oral Daily Active 10/01/2016 [facility] Metformin Hcl 500 Mg Tablet, 500 Mg Oral Twice A Day Active 10/01/2016 [facility] Ondansetron (Zofran Odt) 4 Mg Tab.rapdis, 4 Mg Every 6 Hours as needed for Nausea And Vomiting Active 10/01/2016 [facility] Tramadol Hcl (Ultram 50MG*) 50 Mg Tab, 50 Mg Oral Every 6 Hours as needed for Pain Active 10/01/2016 [facility] Acetaminophen With Codeine (Tylenol With Codeine #3 Tablet) 1 Each Tablet, 300 Mg Oral Every 4 Hours as needed for Pain Active Obi-Ofodile 01/31/2016 [facility] Ibuprofen 400 Mg Tablet, 800 Mg Oral Every 4 Hours Active 01/14/2016 [facility] Dicyclomine Hcl 20 Mg Tablet, 20 Mg Oral Every 6 Hours Active 01/07/2016 [facility] Doxycycline Hyclate 100 Mg Capsule, 100 Mg Oral Daily Active 01/07/2016 [facility] Hydrocodone/Chlorphen Polis (Tussionex Pennkinetic Susp) 480 Ml Julia.er.12h, 5 Ml Oral Q12hrs Active 01/07/2016 [facility] Levofloxacin 500 Mg Tablet, 500 Mg Oral Daily Active 01/07/2016 [facility] Tramadol Hcl (Ultram 50MG*) 50 Mg Tab, 50 Mg Oral Q4-6HRS Active 01/07/2016 [facility] Sulfamethoxazole/Trimethoprim (Bactrim Ds Tablet) 1 Each Tablet, 1 Each Oral Twice A Day Active [place] 11/11/2015 [facility] Nitroglycerin (Nitrostat) 0.4 Mg Tab.subl, 0.4 Mg Sublingual As Needed Active 11/07/2015 [facility] Acetaminophen/Codeine Phosphate (Tylenol # 3*) 1 Ea Tab Every 6 Hours as needed for Pain Active [facility] Albuterol Sulfate (Proair Hfa Inhaler*) 8.5 Gm Inh Active [facility] Amlodipine Besylate 10 Mg Tablet Daily Active [facility] Atorvastatin Calcium 40 Mg Tablet Daily Active [facility] Baclofen 10 Mg Tablet Bedtime Active [facility] Cetirizine Hcl/Pseudoephedrine (Cvs Allergy Relief-D Tablet) 1 Each Tab.er.12h As Needed Active [facility] Clopidogrel Bisulfate (Clopidogrel) 75 Mg Tablet Daily Active [facility] Clotrimazole 15 Gm Cream..g. for Rash Active [facility] Fenofibrate 160 Mg Tablet Daily Active [facility] Gabapentin 300 Mg Capsule Bedtime Active [facility] Levothyroxine Sodium 50 Mcg Tablet Daily Active [facility] Lisinopril 10 Mg Tablet Daily Active [facility] Pantoprazole Sodium (Protonix) 40 Mg Tablet.dr Daily Active [facility] Sertraline Hcl (Zoloft) 50 Mg Tablet Daily Active [facility] Ursodiol (Parker) 250 Mg Tablet Every Morning Active [facility] Allergies, Adverse Reactions, Alerts Substance Category Reaction Severity Reaction type Status Date Reported Comments Source Sulfamethoxazole Unknown Allergy to Substance Active 01/07/2016 [facility] Trimethoprim Unknown Allergy to Substance Active 01/07/2016 [facility] Hydrocodone PALPITATIONS, TACHYCARDIA Unknown Propensity to adverse reactions Active 10/30/2017 [facility] Immunizations No Data Provided for This Section Results Order Name Results Value Reference Range Date Interpretation Comments Source Capillary blood glucose measurement by glucometer (mass/volume) 253 70 - 120 02/11/2018 [facility] Serum or plasma triglyceride measurement (mass/volume) 1098 0 - 149 02/11/2018 [facility] Serum or plasma cholesterol measurement (mass/volume) 254 0 - 199 02/11/2018 [facility] Serum or plasma cholesterol in HDL measurement (mass/volume) 27 40 - 60 02/11/2018 [facility] Serum or plasma total cholesterol/cholesterol in HDL mass ratio 9.4 3.9 - 4.7 02/11/2018 [facility] Serum or plasma creatine kinase measurement (enzymatic activity/volume) 147 30 - 200 02/11/2018 [facility] Serum or plasma creatine kinase MB measurement (mass/volume) 2.50 0 - 5.0 02/11/2018 [facility] Troponin I measurement by highly sensitive enzyme immunoassay 0.019 0 - 0.300 02/11/2018 [facility] Prothrombin time (PT) in platelet poor plasma by coagulation assay 14.0 11.9 - 14.5 02/10/2018 [facility] INR in Platelet poor plasma by Coagulation assay 0.99 02/10/2018 [facility] Activated partial thromboplastin time (aPTT) in platelet poor plasma bycoagulation assay 25.0 23.8 - 35.5 02/10/2018 [facility] Urine color determination YELLOW YELLOW 11/03/2017 [facility] Urine clarity CLEAR CLEAR 11/03/2017 [facility] Specific gravity of Urine by Test strip 1.025 1.010 - 1.025 11/03/2017 [facility] Urine pH measurement by automated test strip 5 5 - 7 11/03/2017 [facility] Urine leukocyte esterase detection by dipstick NEGATIVE NEGATIVE 11/03/2017 [facility] Urine nitrite detection NEGATIVE NEGATIVE 11/03/2017 [facility] Urine protein measurement by test strip (mass/volume) 1+ NEGATIVE 11/03/2017 [facility] Urine glucose detection 3+ NEGATIVE 11/03/2017 [facility] Urine ketones detection by automated test strip NEGATIVE NEGATIVE 11/03/2017 [facility] Urine urobilinogen measurement by test strip (mass/volume) 0.2 0.2 - 1 11/03/2017 [facility] Urine total bilirubin measurement (mass/volume) NEGATIVE NEGATIVE 11/03/2017 [facility] Urine erythrocytes detection NEGATIVE NEGATIVE 11/03/2017 [facility] Automated urine sediment leukocyte count by microscopy (number/high power field) 0-5 0 - 5 11/03/2017 [facility] Erythrocytes detection in urine sediment by light microscopy NONE 0 - 5 11/03/2017 [facility] Bacteria detection in urine sediment by light microscopy RARE NONE 11/03/2017 [facility] Epithelial cells detection in urine sediment by light microscopy RARE NONE 11/03/2017 [facility] Blood leukocytes automated count (number/volume) 6.46 4.8 - 10.8 11/03/2017 [facility] Blood erythrocytes automated count (number/volume) 5.44 4.3 - 5.7 11/03/2017 [facility] Blood hemoglobin measurement (moles/volume) 16.8 14.0 - 18.0 11/03/2017 [facility] Automated blood hematocrit (volume fraction) 48.3 38.2 - 49.6 11/03/2017 [facility] Automated erythrocyte mean corpuscular volume 88.8 81 - 99 11/03/2017 [facility] Automated erythrocyte mean corpuscular hemoglobin (mass per erythrocyte) 30.9 28 - 32 11/03/2017 [facility] Automated erythrocyte mean corpuscular hemoglobin concentration measurement (mass/volume) 34.8 31 - 35 11/03/2017 [facility] RDW BldCo-Rto 13.2 11.7 - 14.4 11/03/2017 [facility] Automated blood platelet count (count/volume) 141 140 - 360 11/03/2017 [facility] Automated blood segmented neutrophil count as percentage of total leukocytes 74.6 38.7 - 80.0 11/03/2017 [facility] Automated blood lymphocyte count as percentage ot total leukocytes 17.0 18.0 - 39.1 11/03/2017 [facility] Automated blood monocyte count as percentage of total leukocytes 5.6 4.4 - 11.3 11/03/2017 [facility] Automated blood eosinophil count as percentage of total leukocytes 1.7 0.0 - 6.0 11/03/2017 [facility] Automated blood basophil count as percentage of total leukocytes 0.5 0.0 - 1.0 11/03/2017 [facility] IM GRANULOCYTES % 0.6 0.0 - 1.0 11/03/2017 [facility] Automated blood neutrophil count 4.8 2.1 - 6.9 11/03/2017 [facility] Blood lymphocytes count (number/volume) 1.1 1.0 - 3.2 11/03/2017 [facility] Blood monocytes automated count (number/volume) 0.4 0.2 - 0.8 11/03/2017 [facility] Automated blood eosinophil count 0.1 0.0 - 0.4 11/03/2017 [facility] Automated blood basophil count (count/volume) 0.0 0.0 - 0.1 11/03/2017 [facility] Absolute Immature Granulocyte (auto 0.04 0 - 0.1 11/03/2017 [facility] Serum or plasma sodium measurement (moles/volume) 141 136 - 145 11/03/2017 [facility] Serum or plasma potassium measurement (moles/volume) 4.0 3.5 - 5.1 11/03/2017 [facility] Serum or plasma chloride measurement (moles/volume) 104 98 - 107 11/03/2017 [facility] Serum or plasma carbon dioxide, total measurement (moles/volume) 21 22 - 29 11/03/2017 [facility] Serum or plasma anion gap 20.0 8 - 16 11/03/2017 [facility] Serum or plasma urea nitrogen measurement (mass/volume) 25 7 - 26 11/03/2017 [facility] Serum or plasma creatinine measurement (mass/volume) 1.60 0.72 - 1.25 11/03/2017 [facility] Serum or plasma urea nitrogen/creatinine mass ratio 16 6 - 25 11/03/2017 [facility] Estimated glomerular filtration rate (GFR) determination 47 60 11/03/2017 [facility] Glucose measurement 145 74 - 118 11/03/2017 [facility] Serum or plasma calcium measurement (mass/volume) 9.7 8.4 - 10.2 11/03/2017 [facility] Serum or plasma total bilirubin measurement (mass/volume) 0.5 0.2 - 1.2 11/03/2017 [facility] Aspartate Amino Transf (AST/SGOT) 26 5 - 34 11/03/2017 [facility] Serum or plasma alanine aminotransferase measurement (enzymatic activity/volume) 38 0 - 55 11/03/2017 [facility] Serum or plasma protein measurement (mass/volume) 8.1 6.5 - 8.1 11/03/2017 [facility] Serum or plasma albumin measurement (mass/volume) 4.1 3.5 - 5.0 11/03/2017 [facility] Plasma globulin measurement (mass/volume) 4.0 2.3 - 3.5 11/03/2017 [facility] Serum or plasma albumin/globulin mass ratio 1.0 0.8 - 2.0 11/03/2017 [facility] Serum or plasma alkaline phosphatase measurement (enzymatic activity/volume) 80 40 - 150 11/03/2017 [facility] Serum or plasma amylase measurement (enzymatic activity/volume) 102 25 - 125 11/03/2017 [facility] Serum or plasma lipase measurement (enzymatic activity/volume) 39 8 - 78 11/03/2017 [facility] Serum or plasma thyrotropin measurement by detection limit <=0.005 miu/l (units/volume) 2.346 0.350 - 4.940 08/23/2017 [facility] BNP Bld-mCnc 18.8 0 - 100 08/22/2017 [facility] Mucus detection in urine sediment by light microscopy MODERATE RARE 06/20/2017 [facility] Pathology Reports No Data Provided for This Section Diagnostic Reports No Data Provided for This Section Consultation Notes No Data Provided for This Section Discharge Summaries No Data Provided for This Section History and Physicals No Data Provided for This Section Vital Signs No Data Provided for This Section Encounters Location Location Details Encounter Type Encounter Number Reason For Visit Attending Provider ADM Date DC Date Status Source Departed Emergency Room [id number] VALERIE GAINES MD 06/20/2017 06/20/2017 [facility] Discharged Inpatient (obs) [id number] MINOO WALSH MD 08/22/2017 08/24/2017 [facility] Departed Emergency Room [id number] YINKA POWERS MD 10/30/2017 10/30/2017 [facility] Departed Emergency Room [id number] DC VENCES MD 11/03/2017 11/03/2017 [facility] Admitted Inpatient (obs) [id number] KAREN MCGOWAN MD 02/10/2018 [facility] Procedures Procedure Code Date Perfomer Comments Source CT angiography of chest [id number] 02/11/2018 [facility] L HRT ARTERY/VENTRICLE ANGIO [id number] 08/22/2017 [facility] Assessment and Plan No Data Provided for This Section Plan of Care Plan of Care Date Source Discharge Date 02/11/18 7:30pm Disposition HOME, SELF-CARE Instructions/Education Provided Chest Pain - Noncardiac Chest Pain - Chest Wall Diabetes and Diet Prescriptions See Medication Section Additional Instructions/Education Follow-up with Dr. Bentley (primary care provider) in 1 week. 02/11/2018 [facility] Social History Social History Date Source Social History Problem Response Recorded Date/Time Onset Date Status Hx Psychiatric Problems No 08/22/2017 8:30pm Not Applicable Not Applicable Hx Eating Disorder No 08/22/2017 8:30pm Not Applicable Not Applicable Hx Substance Use Disorder No 08/22/2017 8:30pm Not Applicable Not Applicable Hx Depression No 08/22/2017 8:30pm Not Applicable Not Applicable Hx Alcohol Use N - social 08/22/2017 8:30pm Not Applicable Not Applicable Hx Substance Use Treatment No 08/22/2017 8:30pm Not Applicable Not Applicable Hx Physical Abuse No 08/22/2017 8:30pm Not Applicable Not Applicable 02/11/2018 [facility] Family History No Data Provided for This Section Advance Directives Order Name Results Value Date Source Advance Directives Advance Directives Directive Response Recorded Date/Time Does the patient have an advance directive? No 02/10/18 5:25pm If yes, is advance directive on file with [facility]? No 08/22/17 8:30pm If not on file with [facility] will patient provide a copy? No 02/10/18 3:02pm Do you have a Directive to Physician? No 02/10/18 3:02pm Do you have a Medical Power of Chief Executive Officer? No 02/10/18 3:02pm Do you have an out of hospital Do Not Resuscitate Order? No 02/10/18 3:02pm Do you have any special needs we should be aware of? No 02/10/18 3:02pm Do you have a support person here with you today? No 02/10/18 3:02pm Did patient receive Notice of Privacy Practices? Yes 02/10/18 3:02pm Did patient receive patient rights and responsibilities? Yes 02/10/18 3:02pm 02/11/2018 [facility] Functional Status No Data Provided for This Section
--- OUTSIDE RECORDS SUMMARY | 2018-12-07 00:16 | XMS REPORT | Clinical Summary ---
Author Author [facility] Address Unknown Phone Unavailable Care Team Providers Care Refrigeration Technician Name Role Phone Chuck Barker 31 Unavailable Fili Bentley MD PCP Unavailable Allergies Comments Active Allergy Reactions Severity Noted Date Sulfamethoxazole-Trimetho Itching High 10/16/2012 prim Hydrocodone-Acetaminophen 02/19/2018 Medications End Date Status Medication Sig Dispensed Refills Start Date Active clotrimazole-betamethason Apply to 0 e (LOTRISONE) 1-0.05 % affected area 6 cream daily PRN rash. Active ursodiol (ACTIGALL) 250 TAKE 1 TABLET 0 mg tablet BY MOUTH 3 6 TIMES A DAY. Active INSULIN LISPRO Inject 80 0 PROTAMIN/LISPRO (HUMALOG Units 8 MIX 75-25 KWIKPEN SUBQ) subcutaneousl y 3 (three) times daily before meals . Active ammonium lactate Apply 0 (AMLACTIN) 12 % cream topically 8 daily . Active LYRICA 75 mg capsule Take 1-2 0 tablets by 8 mouth every night as needed. Active testosterone cypionate Inject 1 mL 0 (DEPOTESTOTERONE intramuscular 8 CYPIONATE) 200 mg/mL ly once every injection 2 weeks. 02/24/2019 Active albuterol HFA (VENTOLIN Inhale 2 0 HFA) 90 mcg/actuation puffs by 8 inhaler mouth via inhaler every 6 (six) hours as needed for Wheezing or Shortness of Breath. 02/24/2019 Active amLODIPine (NORVASC) 10 Take 1 tablet 3 MG tablet (10 mg total) 8 by mouth daily. 02/24/2019 Active clopidogrel (PLAVIX) 75 Take 1 tablet 3 mg tablet (75 mg total) 8 by mouth daily. 02/24/2019 Active fenofibrate Take 1 tablet 0 (TRIGLIDE,LOFIBRA) 160 MG (160 mg 8 tablet total) by mouth daily. 02/24/2019 Active JARDIANCE 25 mg tablet Take 1 tablet 0 (25 mg total) 8 by mouth daily. 02/24/2019 Active levothyroxine (SYNTHROID, Take 1 tablet 0 LEVOTHROID) 100 MCG (100 mcg 8 tablet total) by mouth Every morning on an empty stomach TAKE 1 TABLET BY MOUTH DAILY. 02/24/2019 Active LIPITOR 40 mg tablet Take 1 tablet 0 (40 mg total) 8 by mouth daily. 02/24/2019 Active pantoprazole (PROTONIX) Take 1 tablet 0 40 MG tablet (40 mg total) 8 by mouth daily. 02/24/2019 Active spironolactone Take 1 tablet 0 (ALDACTONE) 25 MG tablet (25 mg total) 8 by mouth daily. 02/24/2019 Active sertraline (ZOLOFT) 100 Take 1 tablet 0 MG tablet (100 mg 8 total) by mouth daily. 02/24/2019 Active valsartan-hydrochlorothia Take 1 tablet 0 zide (DIOVAN-HCT) 320-25 by mouth 8 mg per tablet daily. Active carvedilol (COREG) 25 MG Take 25 mg by 0 tablet mouth 2 (two) times daily with breakfast and dinner. 10/04/2019 Active pantoprazole (PROTONIX) Take 1 tablet 20 tablet 0 20 MG tablet (20 mg total) 9 by mouth daily. 02/24/2018 Discontinued pantoprazole (PROTONIX) Take 40 mg by 0 40 MG tablet mouth daily. 6 02/24/2018 Discontinued albuterol HFA (VENTOLIN Inhale 2 0 HFA) 90 mcg/actuation puffs by 5 inhaler mouth via inhaler every 6 (six) hours as needed for Wheezing or Shortness of Breath . 02/24/2018 Discontinued levothyroxine (SYNTHROID, TAKE 1 TABLET 0 LEVOTHROID) 100 MCG BY MOUTH 6 tablet DAILY. 01/31/2018 Discontinued sertraline (ZOLOFT) 25 MG TAKE 1 TABLET 0 tablet BY MOUTH 7 DAILY. 01/31/2018 Discontinued hydrOXYzine (ATARAX) 25 Take 1 tablet 30 tablet 0 MG tablet (25 mg total) 7 by mouth 3 (three) times daily as needed for Anxiety. 02/21/2018 Discontinued BD Ultra-Fine Samina Use as 100 each 0 Insulin Pen [place] 4 mm directed. 7 x 32 G Dispense as written, do not substitute. Brand medically necessary.. 02/24/2018 Discontinued baclofen (LIORESAL) 10 MG Take 10 mg by 0 tablet mouth every night as needed. 02/24/2018 Discontinued spironolactone Take 25 mg by 0 (ALDACTONE) 25 MG tablet mouth daily. 02/24/2018 Discontinued valsartan-hydrochlorothia Take 1 tablet 0 zide (DIOVAN-HCT) 320-25 by mouth mg per tablet daily. 02/24/2018 Discontinued carvedilol (COREG) 25 MG Take 25 mg by 0 tablet mouth 2 (two) times daily with breakfast and dinner. 02/21/2018 Discontinued ketoconazole (NIZORAL) 2 Apply 30 g 0 % cream topically 2 8 (two) times daily as needed. 01/31/2018 Discontinued meloxicam (MOBIC) 15 MG Take 15 mg by 0 tablet mouth daily 8 as needed for Pain . 02/24/2018 Discontinued fenofibrate Take 160 mg 0 (TRIGLIDE,LOFIBRA) 160 MG by mouth 8 tablet daily . 02/24/2018 Discontinued JARDIANCE 25 mg tablet Take 25 mg by 0 mouth daily . 8 02/24/2018 Discontinued amLODIPine (NORVASC) 10 Take 10 mg by 3 MG tablet mouth daily. 8 01/31/2018 Discontinued fexofenadine (JUANA) TAKE 1 TABLET 0 180 MG tablet BY MOUTH 5 DAILY 06/04/2018 Discontinued nitroglycerin (NITROSTAT) PLACE 1 PILL 0 0.3 MG SL tablet UNDER TONGUE 8 EVERY 5 MINUTES NEEDED IF PAIN PERSISTS GREATER THAN 15 MINS., CALL 911 01/31/2018 Discontinued HYDROcodone-acetaminophen Take 1 tablet 0 (NORCO 10-325) 10-325 mg by mouth 8 per tablet every 6 (six) hours as needed for Pain . 02/24/2018 Discontinued LIPITOR 40 mg tablet Take 1 tablet 0 by mouth 8 daily. 02/20/2018 Discontinued acetaminophen-codeine Take 1 tablet 0 (TYLENOL #3) 300-30 mg by mouth 8 per tablet every 4 (four) hours as needed for Pain. 02/24/2018 Discontinued clopidogrel (PLAVIX) 75 Take 1 tablet 3 mg tablet by mouth 8 daily. 02/24/2018 Discontinued sertraline (ZOLOFT) 100 Take 1 tablet 0 MG tablet by mouth 8 daily. 01/31/2018 Discontinued PROTONIX 40 mg tablet Take 1 tablet 0 by mouth 8 daily. 02/21/2018 Discontinued lisinopril Take 1 tablet 0 (PRINIVIL,ZESTRIL) 10 MG by mouth tablet daily. 02/21/2018 Discontinued cetirizine Take 1 tablet 0 HCl/pseudoephedrine by mouth (ZYRTEC-D ORAL) daily. 02/24/2018 Discontinued ciprofloxacin HCl (CIPRO) Take 1 tablet 14 tablet 0 500 MG tablet (500 mg 8 total) by mouth 2 (two) times daily for 7 days. 02/24/2018 Discontinued metroNIDAZOLE (FLAGYL) Take 1 tablet 14 tablet 0 500 MG tablet (500 mg 8 total) by mouth 2 (two) times daily for 7 days. 02/24/2018 Discontinued ondansetron (ZOFRAN) 4 MG Take 1 tablet 12 tablet 0 tablet (4 mg total) 8 by mouth 3 (three) times daily as needed for Nausea for up to 7 days. 02/24/2018 Discontinued acetaminophen-codeine Take 1 tablet 20 tablet 0 (TYLENOL #3) 300-30 mg by mouth 8 per tablet every 6 (six) hours as needed for up to 10 days. Max Daily Amount: 4 tablets 02/25/2018 Discontinued acetaminophen-codeine Take 1 tablet 30 tablet 0 (TYLENOL #4) 300-60 mg by mouth 8 per tablet every 6 (six) hours as needed for Pain for up to 10 days. Max Daily Amount: 4 tablets 02/24/2018 Discontinued carvedilol (COREG) 25 MG Take 1 tablet 0 tablet (25 mg total) 8 by mouth 2 (two) times daily with breakfast and dinner Hold for SBP <100 or DBP <50 or HR <50.. 03/03/2018 ondansetron (ZOFRAN) 4 MG Take 1 tablet 14 tablet 0 tablet (4 mg total) 8 by mouth 3 (three) times daily as needed (before meals if nauseated) for up to 7 days. 03/04/2018 ondansetron (ZOFRAN) 4 MG Take 1 tablet 30 tablet 0 tablet (4 mg total) 8 by mouth 3 (three) times daily before meals for 7 days. 03/07/2018 acetaminophen-codeine Take 1 tablet 30 tablet 0 (TYLENOL #4) 300-60 mg by mouth 8 per tablet every 6 (six) hours as needed for Pain for up to 10 days. Max Daily Amount: 4 tablets 04/01/2018 traMADol (ULTRAM) 50 mg Take 1 tablet 20 tablet 0 tablet (50 mg total) 9 by mouth every 8 (eight) hours as needed for Pain for up to 10 days. Max Daily Amount: 150 mg 03/24/2018 ondansetron (ZOFRAN-ODT) Take 1 tablet 4 tablet 0 4 MG disintegrating (4 mg total) 9 tablet by mouth every 8 (eight) hours as needed for up to 2 days. 06/11/2018 mINOCYCLine Take 1 14 capsule 0 (MINOCIN,DYNACIN) 100 MG capsule (100 9 capsule mg total) by mouth 2 (two) times daily for 7 days. 06/11/2018 HYDROmorphone (DILAUDID) Take 1 tablet 28 tablet 0 4 MG tablet (4 mg total) 9 by mouth every 6 (six) hours as needed for Pain for up to 7 days. Max Daily Amount: 16 mg Active Problems Problem Noted Date Leg pain, anterior, left 06/02/2018 Traumatic leg injury, left, initial encounter 06/02/2018 CKD stage 2 due to type 2 diabetes mellitus 02/24/2018 Colitis 02/23/2018 Mild dehydration 02/22/2018 Type 2 diabetes mellitus with hyperlipidemia 02/22/2018 Hypertensive urgency 02/22/2018 Hypothyroid 02/22/2018 Intractable cyclical vomiting with nausea 02/21/2018 Right upper quadrant abdominal pain 02/21/2018 Dehydration, moderate 12/06/2017 Uncontrolled hypertension 12/06/2017 Gastroesophageal reflux disease without esophagitis 12/06/2017 Tinea versicolor 07/02/2017 Acute recurrent pancreatitis 07/01/2017 Acute on chronic pancreatitis 06/30/2017 Hyperglycemia 06/29/2017 Intractable abdominal pain 06/02/2016 Pain of left lower extremity 04/13/2016 Unstable angina 02/03/2016 Left leg cellulitis 09/10/2015 Morbid obesity 12/03/2014 CAD (coronary artery disease)- CAD -- non-occlusive by heart cath - 2006 - 12/03/2014 [facility] - Dr. 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 Hypertriglyceridemia 12/15/2012 HTN (hypertension) 10/18/2012 Diabetes mellitus 10/18/2012 Encounters Care Team Description Date Type Specialty Dameon Gautam MD Acute superficial gastritis without hemorrhage (Primary Dx) 10/04/2018 Emergency Emergency Medicine 10/03/2018 Orders Only General Internal Medicine Finn Mackey MD Atypical chest pain (Primary Dx); Right-sided chest wall pain 08/30/2018 Emergency Emergency Medicine 08/30/2018 Orders Only General Internal Medicine 08/30/2018 Travel Dameon Gautam MD Gonzalez, Adriana, MD Ali, Joni Harper MD Leg pain, anterior, left (Primary Dx) 06/02/2018 [facility] General Internal Medicine - Encounter 06/04/2018 06/02/2018 Travel 06/01/2018 Travel Kashif Matamoros MD RUQ abdominal pain (Primary Dx); Nausea; Vomiting and diarrhea; Hypokalemia 03/22/2018 Emergency Emergency Medicine 03/22/2018 Orders Only General Internal Medicine 03/22/2018 Travel Keven Cherry MD [place], MD Marlene Guidry Tuyen V., MD Intractable cyclical vomiting with nausea (Primary Dx); Malignant hypertension; Hx of diabetes mellitus; Pancreatic cyst 02/21/2018 Hospital Cardiology - Encounter 02/25/2018 Chino Almendarez MD Colitis (Primary Dx); Non-intractable vomiting with nausea, unspecified vomiting type; Diarrhea, unspecified type; Hyperglycemia; Epigastric pain; Hypertensive urgency 02/19/2018 Emergency Emergency Medicine - 02/20/2018 02/19/2018 Travel Kurt Alegria Jr., MD Hyperglycemia (Primary Dx); Hyperglycemia without ketosis; Essential hypertension; Uncontrolled type 1 diabetes mellitus with hyperglycemia (HCC) 01/31/2018 Emergency Emergency Medicine 01/31/2018 Orders Only General Internal Medicine Julia Rizvi, Type 2 diabetes mellitus with hyperglycemia, with long-term current use of insulin (HCC) (Primary Dx); Dehydration, moderate; Gastroesophageal reflux disease without esophagitis; Uncontrolled hypertension 12/06/2017 Emergency Emergency Medicine 12/06/2017 Orders Only General Internal Medicine after 12/06/2017 Immunizations Name Dates Previously Given Next Due Influenza Four-QIV Non-PF 02/23/2018 5+ YR Pneumococcal 06/13/2015 Polysaccharide (Pneumovax) Tdap 06/02/2018 Family History Medical History Relation Name Comments [...] Vital Signs Time Taken Vital Sign Reading 10/04/2018 5:00 AM CDT Blood Pressure 172/100 10/04/2018 5:00 AM CDT Pulse 84 10/04/2018 5:00 AM CDT Temperature 37.1 C (98.7 F) 10/04/2018 5:00 AM CDT Respiratory Rate 18 10/04/2018 5:00 AM CDT Oxygen Saturation 98% 06/04/2018 3:21 AM CDT Inhaled Oxygen 21% Concentration 10/04/2018 12:02 AM CDT Weight 176.4 kg (389 lb) 10/04/2018 12:02 AM CDT Height 195.6 cm (6' 5") 10/04/2018 12:02 AM CDT Body Mass Index 46.13 Plan of Treatment Health Maintenance Due Date Last Done Comments HEMOGLOBIN A1C 09/29/2017 06/30/2017, 06/16/2016, 04/14/2016, Additional history exists Implants Device Identifier Shelf Expiration Date Model / Serial / Lot Implanted Type Area Manufactur er 12/18/2016 3752 / / [id number] Stent Panc Advanix 5fx5cm Str 3752 Stents-Per N/A: Pancreas [place] - [id number] ipheral SCI:ENDO Implanted: Qty: 1 on 06/22/2016 by Madison Barnard MD Procedures Comments Procedure Name Priority Date/Time Associated Diagnosis REPORT OF PROCEDURE - 10/09/2018 ENDOSCOPY SCAN 11:40 AM CDT ED ECG INTERPRETATION Routine 10/04/2018 4:47 AM CDT CBC W/PLT COUNT & AUTO STAT 10/04/2018 DIFFERENTIAL 3:03 AM CDT CBC W/PLT COUNT & AUTO STAT 10/04/2018 DIFFERENTIAL 3:03 AM CDT LIPASE STAT 10/04/2018 3:03 AM CDT AMYLASE STAT 10/04/2018 3:03 AM CDT HEPATIC FUNCTION PANEL STAT 10/04/2018 3:03 AM CDT BASIC METABOLIC PANEL (7) STAT 10/04/2018 3:03 AM CDT ECG 12-LEAD STAT 10/03/2018 11:55 PM CDT REPORT OF PROCEDURE - 08/31/2018 ENDOSCOPY SCAN 10:22 AM CDT CBC W/PLT COUNT & AUTO STAT 08/30/2018 DIFFERENTIAL 3:52 PM CDT LIPASE STAT 08/30/2018 3:52 PM CDT MAGNESIUM STAT 08/30/2018 3:52 PM CDT PT/APTT STAT 08/30/2018 3:52 PM CDT TROPONIN I STAT 08/30/2018 3:52 PM CDT COMPREHENSIVE METABOLIC STAT 08/30/2018 PANEL 3:52 PM CDT CBC W/PLT COUNT & AUTO STAT 08/30/2018 DIFFERENTIAL 3:52 PM CDT XR CHEST 1 VIEW STAT 08/30/2018 PORTABLE/BEDSIDE 3:45 PM CDT ECG 12-LEAD Routine 08/30/2018 2:51 PM CDT Procedure Note - Interface, External Ris In - 08/30/2018 7:51 PM CDT Ventricula r Rate 94 BPM Atrial Rate 94 BPM P-R Interval 192 ms QRS Duration 108 ms Q-T Interval 374 ms QTC Calculatio n(Bazett) 467 ms P [place] 44 degrees R [place] -33 degrees T [place] 49 degrees Normal sinus rhythm Possible Left atrial enlargemen t Left axis deviation Incomplete right bundle branch block Inferior infarct (cited on or before 8) Cannot rule out Anterior infarct , age undetermin ed Abnormal ECG When compared with ECG of 9 15:26, No significan t change was found ECG 12-LEAD STAT 08/30/2018 2:51 PM CDT HEPARIN ANTIBODY AP Routine 06/04/2018 3:18 PM CDT CBC W/PLT COUNT & AUTO Routine 06/04/2018 DIFFERENTIAL 1:25 PM CDT CBC W/PLT COUNT & AUTO Routine 06/04/2018 DIFFERENTIAL 1:25 PM CDT POCT-GLUCOSE METER Routine 06/04/2018 12:15 PM CDT POCT-GLUCOSE METER Routine 06/04/2018 8:28 AM CDT BASIC METABOLIC PANEL (7) Routine 06/04/2018 6:07 AM CDT PERIPHERAL VASCULAR 06/03/2018 REPORT - SCAN 9:11 PM CDT POCT-GLUCOSE METER Routine 06/03/2018 8:57 PM CDT POCT-GLUCOSE METER Routine 06/03/2018 6:08 PM CDT POCT-GLUCOSE METER Routine 06/03/2018 11:32 AM CDT BASIC METABOLIC PANEL (7) Routine 06/03/2018 7:22 AM CDT MR LOWER EXTREMITY Routine 06/03/2018 WITHOUT IV CONTRAST LEFT 6:50 AM CDT POCT-GLUCOSE METER Routine 06/02/2018 9:13 PM CDT POCT-GLUCOSE METER Routine 06/02/2018 6:15 PM CDT URINALYSIS W/ REFLEX Routine 06/02/2018 URINE CULTURE 2:49 PM CDT POCT-GLUCOSE METER Routine 06/02/2018 12:56 PM CDT VENOUS DOPPLER LEG, LEFT Routine 06/02/2018 12:17 PM CDT BLOOD CULTURE STAT 06/02/2018 5:13 AM CDT CBC W/PLT COUNT & AUTO STAT 06/02/2018 DIFFERENTIAL 4:14 AM CDT CREATINE KINASE (CK) STAT 06/02/2018 4:14 AM CDT CBC W/PLT COUNT & AUTO STAT 06/02/2018 DIFFERENTIAL 4:14 AM CDT BASIC METABOLIC PANEL (7) STAT 06/02/2018 4:14 AM CDT BLOOD CULTURE STAT 06/02/2018 4:13 AM CDT XR LEG/TIBIA & FIBULA STAT 06/02/2018 LEFT 2 VIEWS 1:10 AM CDT REPORT OF PROCEDURE - 05/19/2018 ENDOSCOPY SCAN 3:50 PM [employer] CT ABDOMEN/PELVIS WITH IV STAT 03/22/2018 CONTRAST 4:45 PM HARNESS AND BAG INSPECTOR ECG 12-LEAD Routine 03/22/2018 3:26 PM HARNESS AND BAG INSPECTOR Procedure Note - Interface, External Ris In - 03/22/2018 9:48 PM HARNESS AND BAG INSPECTOR Ventricula r Rate 83 BPM Atrial Rate 83 BPM P-R Interval 196 ms QRS Duration 104 ms Q-T Interval 414 ms QTC Calculatio n(Bazett) 486 ms P [place] 30 degrees R [place] -35 degrees T [place] 8 degrees Normal sinus rhythm Possible Left atrial enlargemen t Left axis deviation Inferior infarct (cited on or before 8) Abnormal ECG When compared with ECG of 8 13:01, Minimal criteria for Anterior infarct are no longer Present QT has lengthened ECG 12-LEAD STAT 03/22/2018 3:26 PM HARNESS AND BAG INSPECTOR CBC W/PLT COUNT & AUTO STAT 03/22/2018 DIFFERENTIAL 3:21 PM HARNESS AND BAG INSPECTOR TROPONIN I STAT 03/22/2018 3:21 PM HARNESS AND BAG INSPECTOR HEPATIC FUNCTION PANEL STAT 03/22/2018 3:21 PM HARNESS AND BAG INSPECTOR BASIC METABOLIC PANEL (7) STAT 03/22/2018 3:21 PM HARNESS AND BAG INSPECTOR LIPASE STAT 03/22/2018 3:21 PM HARNESS AND BAG INSPECTOR CBC W/PLT COUNT & AUTO STAT 03/22/2018 DIFFERENTIAL 3:21 PM HARNESS AND BAG INSPECTOR ED ECG INTERPRETATION Routine 03/22/2018 2:48 PM HARN[employer] AND BAG INSPECTOR RHYTHM STRIP - SCAN 03/03/2018 2:20 PM H[employer] AND BAG INSPECTOR POCT-GLUCOSE METER Routine 02/25/2018 9:52 AM H[employer] AND BAG INSPECTOR POCT-GLUCOSE METER Routine 02/24/2018 9:05 PM HARNESS AND BAG INSPECTOR POCT-GLUCOSE METER Routine 02/24/2018 5:44 PM HARNESS AND BAG INSPECTOR POCT-GLUCOSE METER Routine 02/24/2018 12:30 PM HARNESS AND BAG INSPECTOR PANCREATIC ELASTASE, Routine 02/24/2018 FECAL 11:16 AM HARNESS AND BAG INSPECTOR C. DIFFICILE GDH TOXIN Routine 02/24/2018 11:16 AM HARNESS AND BAG INSPECTOR STOOL PATH CHARGE Routine 02/24/2018 11:00 AM HARN[employer] AND BAG INSPECTOR STOOL CULTURE + SHIGA Routine 02/24/2018 TOXIN 11:00 AM HARN[employer] AND BAG INSPECTOR POCT-GLUCOSE METER Routine 02/24/2018 9:25 AM HARNESS AND BAG INSPECTOR TISSUE TRANSGLUTAMINASE Routine 02/24/2018 ABS,IGG AND IGA 6:40 AM H[employer] AND [employer]AG INSPECTOR POCT-GLUCOSE METER Routine 02/23/2018 7:24 PM HARN[employer] AND BAG INSPECTOR POCT-GLUCOSE METER Routine 02/23/2018 11:54 AM [employer] AND BAG INSPECTOR POCT-GLUCOSE METER Routine 02/23/2018 7:56 AM HARN[employer] AND BAG INSPECTOR T4, FREE Routine 02/23/2018 6:00 AM HARN[employer] AND BAG INSPECTOR TSH/FREE T4 IF INDICATED Routine 02/23/2018 6:00 AM HARNESS AND BAG INSPECTOR MAGNESIUM Routine 02/23/2018 6:00 AM HARNESS AND BAG INSPECTOR BASIC METABOLIC PANEL (7) Routine 02/23/2018 6:00 AM HARN[employer] AND BAG INSPECTOR POCT-GLUCOSE METER Routine 02/22/2018 11:15 PM [employer] AND BAG INSPECTOR POCT-GLUCOSE METER Routine 02/22/2018 5:55 PM H[employer] AND BAG INSPECTOR C-REACTIVE PROTEIN Routine 02/22/2018 3:34 PM HARN[employer] AND BAG INSPECTOR OVA AND PARASITE Routine 02/22/2018 EXAMINATION 2:45 PM [employer] BAG INSPECTOR POCT-GLUCOSE METER Routine 02/22/2018 12:22 PM HARNESS AND BAG INSPECTOR NM HEPATOBILIARY (HIDA) OLYA 02/22/2018 SCAN 9:52 AM HARNESS AND BAG INSPECTOR URINALYSIS W/ MICROSCOPIC STAT 02/22/2018 5:46 AM HARN[employer] AND BAG INSPECTOR CBC W/PLT COUNT & AUTO Routine 02/22/2018 DIFFERENTIAL 4:56 AM HARN[employer] AND BAG INSPECTOR LIPASE Routine 02/22/2018 4:56 AM HARN[employer] AND BAG INSPECTOR AMYLASE Routine 02/22/2018 4:56 AM HARN[employer] AND BAG INSPECTOR CBC W/PLT COUNT & AUTO Routine 02/22/2018 DIFFERENTIAL 4:56 AM HARN[employer] AND BAG INSPECTOR MAGNESIUM Routine 02/22/2018 4:56 AM HARN[employer] AND BAG INSPECTOR HEPATIC FUNCTION PANEL Routine 02/22/2018 4:56 AM HARN[employer] AND BAG INSPECTOR BASIC METABOLIC PANEL (7) Routine 02/22/2018 4:56 AM HARN[employer] AND BAG INSPECTOR BLOOD CULTURE STAT 02/22/2018 4:56 AM HARNESS AND BAG INSPECTOR POCT-GLUCOSE METER Routine 02/22/2018 1:33 AM HARN[employer] AND BAG INSPECTOR GAMMA GLUTAMYL STAT 02/22/2018 TRANSFERASE (GGT) 12:24 AM HARNESS AND BAG INSPECTOR KETONE, BLOOD STAT 02/22/2018 12:24 AM HARNESS AND BAG INSPECTOR US ABDOMEN LIMITED STAT 02/21/2018 8:58 PM HARNESS AND BAG INSPECTOR BLOOD CULTURE STAT 02/21/2018 7:41 PM HARN[employer] AND [employer]AG INSPECTOR BASIC METABOLIC PANEL (7) STAT 02/21/2018 7:40 PM HARNESS AND BAG INSPECTOR XR CHEST 1 VIEW STAT 02/21/2018 PORTABLE/BEDSIDE 6:43 PM H[employer] AND BAG INSPECTOR POCT-LACTIC ACID, VENOUS Routine 02/21/2018 6:31 PM HARN[employer] AND BAG INSPECTOR CBC W/PLT COUNT & AUTO STAT 02/21/2018 DIFFERENTIAL 6:30 PM HARN[employer] AND BAG INSPECTOR CBC W/PLT COUNT & AUTO STAT 02/21/2018 DIFFERENTIAL 6:30 PM HARN[employer] AND BAG INSPECTOR BLOOD CULTURE STAT 02/21/2018 6:29 PM H[employer] AND BAG INSPECTOR ALKALINE PHOSPHATASE STAT 02/21/2018 6:25 PM HARN[employer] AND BAG INSPECTOR BILIRUBIN, ADULT TOTAL STAT 02/21/2018 6:25 PM HARN[employer] AND BAG INSPECTOR LIPASE STAT 02/21/2018 6:25 PM HARN[employer] AND BAG INSPECTOR AST (SGOT) STAT 02/21/2018 6:25 PM HARN[employer] AND BAG INSPECTOR ALT (SGPT) STAT 02/21/2018 6:25 PM HARN[employer] AND BAG INSPECTOR POCT-GLUCOSE METER Routine 02/20/2018 12:16 AM [employer] CT ABDOMEN/PELVIS WITH IV STAT 02/20/2018 CONTRAST 12:06 AM H[employer] AND BAG INSPECTOR CBC W/PLT COUNT & AUTO STAT 02/19/2018 DIFFERENTIAL 10:29 PM [employer] BAG INSPECTOR CBC W/PLT COUNT & AUTO STAT 02/19/2018 DIFFERENTIAL 10:29 PM [employer]AG INSPECTOR KETONE, BLOOD STAT 02/19/2018 9:40 PM H[employer] AND BAG INSPECTOR LIPASE STAT 02/19/2018 9:40 PM H[employer] BAG INSPECTOR HEPATIC FUNCTION PANEL STAT 02/19/2018 9:40 PM [employer]AG INSPECTOR BASIC METABOLIC PANEL (7) STAT 02/19/2018 9:40 PM [employer] BAG INSPECTOR CBC W/PLT COUNT & AUTO STAT 01/31/2018 DIFFERENTIAL 1:05 PM [employer]AG INSPECTOR LIPASE STAT 01/31/2018 1:05 PM [employer]AG INSPECTOR HEPATIC FUNCTION PANEL STAT 01/31/2018 1:05 PM [employer] AND BAG INSPECTOR KETONE, BLOOD STAT 01/31/2018 1:05 PM HARN[employer] AND BAG INSPECTOR PHOSPHORUS STAT 01/31/2018 1:05 PM HARN[employer] AND BAG INSPECTOR MAGNESIUM STAT 01/31/2018 1:05 PM HARN[employer] AND BAG INSPECTOR TROPONIN I STAT 01/31/2018 1:05 PM HARN[employer] AND BAG INSPECTOR CBC W/PLT COUNT & AUTO STAT 01/31/2018 DIFFERENTIAL 1:05 PM [employer] BAG INSPECTOR BASIC METABOLIC PANEL (7) STAT 01/31/2018 1:05 PM H[employer] AND BAG INSPECTOR ECG 12-LEAD Routine 01/31/2018 1:01 PM [employer]AG INSPECTOR Procedure Note - Interface, External Ris In - 01/31/2018 6:57 PM H[employer] BAG INSPECTOR Ventricula r Rate 68 BPM Atrial Rate 68 BPM P-R Interval 212 ms QRS Duration 118 ms Q-T Interval 402 ms QTC Calculatio n(Bazett) 427 ms P [place] 31 degrees R [place] -13 degrees T [place] 21 degrees Sinus rhythm with 1st degree A-V block Inferior infarct (cited on or before 8) Cannot rule out Anterior infarct (cited on or before 8) Abnormal ECG When compared with ECG of 12:51, [place] interval has increased QRS duration has increased ECG 12-LEAD STAT 01/31/2018 1:01 PM [employer] INSPECTOR POCT-GLUCOSE METER Routine 01/31/2018 12:20 PM HARN[employer] BAG INSPECTOR ED ECG INTERPRETATION Routine 12/11/2017 10:24 PM CDT BASIC METABOLIC PANEL (7) STAT 12/06/2017 2:51 PM CDT ECG 12-LEAD Routine 12/06/2017 12:51 PM CDT Procedure Note - Interface, External Ris In - 12/06/2017 6:21 PM CDT Ventricula r Rate 67 BPM Atrial Rate 67 BPM P-R Interval 168 ms QRS Duration 96 ms Q-T Interval 428 ms QTC Calculatio n(Bazett) 452 ms P [place] 102 degrees R [place] -29 degrees T [place] 3 degrees Normal sinus rhythm Inferior infarct , age undetermin ed Cannot rule out Anterior infarct , age undetermin ed Abnormal ECG When compared with ECG of 8 12:33, Inferior infarct is now Present ECG [...] AUTO STAT 12/06/2017 DIFFERENTIAL 12:37 PM CDT after 12/06/2017 Results * EKG-SCANNED (10/09/2018 11:40 AM CDT) Only the most recent of 3 results within the time period is included. Narrative Performed At * ECG/EKG Interpretation (10/04/2018 4:47 AM CDT) Only the most recent of 3 results within the time period is included. Narrative Performed At Dameon Gautam MD 10/04/20184:48 AM ECG/EKG Interpretation Date/Time: 10/04/2018 4:47 AM Performed by: Dameon Gautam MD Authorized by: Dameon Gautam MD The ECG was interpreted by ED physician. This ECG was not compared with previous ECG(s).The ECG is interpreted as sinus rhythm. Rate is normal rate. [place] is normal. Clinical Impression: non-specific ECGECG reviewed and does not meet STEMI criteria. Patient tolerance: Patient tolerated the procedure well with no immediate complications * CBC with platelet count + automated diff (10/04/2018 3:03 AM CDT) Only the most recent of 10 results within the time period is included. WBC 3.8 3.5 - 10.5 K/L [facility] RBC 5.26 4.63 - 6.08 M/L [facility] Hemoglobin 16.2 13.7 - 17.5 GM/DL [facility] Hematocrit 48.0 40.1 - 51.0 % [facility] MCV 91.3 79.0 - 92.2 fL [facility] MCH 30.8 25.7 - 32.2 pg [facility] MCHC 33.8 32.3 - 36.5 GM/DL [facility] RDW 13.7 11.6 - 14.4 % [facility] Platelets 95 (L) 150 - 450 K/CU MM [facility] MPV 11.0 9.4 - 12.4 fL [facility] nRBC 0 0 - 0 /100 WBC [facility] [facility] % Neutros 49 % [facility] % Lymphs 36 % [facility] % Monos 11 % [facility] % Eos 3 % [facility] % Baso 0 % [facility] # Neutros 1.87 1.78 - 5.38 K/L [facility] # Lymphs 1.39 1.32 - 3.57 K/L [facility] # Monos 0.41 0.30 - 0.82 K/L [facility] # Eos 0.13 0.04 - 0.54 K/L [facility] # Baso 0.01 0.01 - 0.08 K/L [facility] Immature 1 0 - 1 % [facility] Granulocytes-Relative [facility] Specimen Blood Performing Organization Address City/State/Zipcode Phone Number [facility] [address] [place] [address] [facility]ENTER * Lipase (10/04/2018 3:03 AM CDT) Only the most recent of 7 results within the time period is included. Lipase 38 8 - 78 U/L [facility] Specimen Blood Performing Organization Address City/[facility]/Zipcode Phone Number [address] [address] [facility] * Amylase (10/04/2018 3:03 AM CDT) Only the most recent of 2 results within the time period is included. Amylase 71 25 - 125 U/L [facility] Specimen Blood Performing Organization Address City/[facility] Phone Number [address] [address] [facility] * Hepatic function panel (10/04/2018 3:03 AM CDT) Only the most recent of 5 results within the time period is included. Protein, Total 6.8 6.0 - 8.3 gm/dL [facility] Albumin 3.7 3.5 - 5.0 g/dL [facility] Total Bilirubin 0.4 0.2 - 1.2 mg/dL [facility] Bilirubin, Direct 0.2 0.1 - 0.5 mg/dL [facility] Alkaline Phosphatase 78 40 - 150 U/L [facility] AST 14 5 - 34 U/L [facility] ALT 21 6 - 55 U/L [facility] Specimen Blood Performing Organization Address City/[facility] Phone Number [address] [address] [facility] * Basic Metabolic Panel (10/04/2018 3:03 AM CDT) Only the most recent of 12 results within the time period is included. Sodium 135 (L) 136 - 145 meq/L [facility] Potassium 3.7 3.5 - 5.1 meq/L [facility] Chloride 106 98 - 107 meq/L [facility] CO2 19 (L) 22 - 29 meq/L [facility] BUN 21 7 - 21 mg/dL [facility] Creatinine 1.21 0.57 - 1.25 mg/dL [facility] Glucose 249 (H) 70 - 105 mg/dL [facility] Calcium 8.9 8.4 - 10.2 mg/dL [facility] EGFR 64Comment: ESTIMATED GFR IS mL/min/1.[address] [facility] NOT ACCURATE CREATININE [facility] CLEARANCE IN PREDICTING GLOMERULAR FILTRATION RATE. ESTIMATED GFR IS NOT APPLICABLE FOR DIALYSIS PATIENTS. Specimen Blood Performing Organization Address City/State/Zipcode Phone Number [facility] [address] [place] [address] [facility] * ECG 12 lead (10/03/2018 11:55 PM CDT) Only the most recent of 5 results within the time period is included. Specimen Narrative Performed At Ventricular Rate 87 BPM GE MUSE Atrial Rate 87 BPM P-R Interval 202 ms QRS Duration 112 ms Q-T Interval 380 ms QTC Calculation(Bazett) 457 ms P [place] 17 degrees R [place] -23 degrees T [place] 21 degrees Normal sinus rhythm Possible Left atrial enlargement Left ventricular hypertrophy Cannot rule out Inferior infarct (cited on or before 06-DEC-2017) Abnormal ECG When compared with ECG of 30-AUG-2018 14:51, No significant change was found Confirmed by MD Dozier Mahboob ([id number]) on 10/04/2018 4:31:25 PM Procedure Note Interface, External Ris In - 10/04/2018 4:31 PM CDT Ventricular Rate 87 BPM Atrial Rate 87 BPM P-R Interval 202 ms QRS Duration 112 ms Q-T Interval 380 ms QTC Calculation(Bazett) 457 ms P [place] 17 degrees R [place] -23 degrees T [place] 21 degrees Normal sinus rhythm Possible Left atrial enlargement Left ventricular hypertrophy Cannot rule out Inferior infarct (cited on or before 06-DEC-2017) Abnormal ECG When compared with ECG of 30-AUG-2018 14:51, No significant change was found Confirmed by MD Dozier Mahboob ([id number]) on 10/04/2018 4:31:25 PM Performing Organization Address [facility] Phone Number GE MUSE * PT/aPTT (08/30/2018 3:52 PM CDT) Protime 14.5 (H) 11.9 - 14.2 seconds [facility] INR 1.2 <=5.9 [facility] PTT 26.2 22.5 - 36.0 seconds [facility] Specimen Blood Narrative Performed At Effective 08/16/2018: PT Reference Range Change [facility] New: 11.9-14.2Previous: 11.7-14.7 [facility] RECOMMENDED COUMADIN/WARFARIN INR THERAPY RANGES STANDARD DOSE: 2.0-3.0Includes: PROPHYLAXIS for venous thrombosis, systemic embolization; TREATMENT for venous thrombosis and/or pulmonary embolus. HIGH RISK: Target INR is 2.5-3.5 for patients wiht mechanical heart valves. Performing Organization Address [facility] Phone Number [place] [phone] [place] [address] * Troponin I (08/30/2018 3:52 PM CDT) Only the most recent of 4 results within the time period is included. Troponin I 0.03 0.00 - 0.03 ng/mL [facility] Specimen Blood Narrative Performed At Troponin I (TnI) levels must be interpreted in the context of the presenting [facility] symptoms and the clinical findings. Elevated TnI levels indicate myocardial [facility] damage, but are not specific for ischemic heart disease. Elevated TnI levels are seen in patients with other cardiac conditions (including myocarditis and congestive heart failure), and slight TnI elevations occur in patients with other conditions, including sepsis, renal failure, acidosis, acute neurological disease, and persistent tachyarrhythmia. Performing Organization Address [facility] [place] [address] [facility] * Magnesium (08/30/2018 3:52 PM CDT) Only the most recent of 4 results within the time period is included. Magnesium 2.2Comment: Specimen slightly 1.6 - 2.6 mg/dL [facility] Specimen Blood Performing Organization Address City/State/Zipcode Phone Number [facility] [address] [place] [address] [facility] * Comprehensive metabolic panel (08/30/2018 3:52 PM CDT) Protein, Total 7.6Comment: Specimen slightly 6.0 - 8.3 gm/dL [facility] Albumin 4.0Comment: Specimen slightly 3.5 - 5.0 g/dL [facility] Alkaline Phosphatase 76 40 - 150 U/L [facility] Total Bilirubin 0.6Comment: Specimen slightly 0.2 - 1.2 mg/dL [facility] Sodium 139 136 - 145 meq/L [facility] Potassium 3.5Comment: Specimen slightly 3.5 - 5.1 meq/L [facility] Chloride 105 98 - 107 meq/L [facility] CO2 24 22 - 29 meq/L [facility] BUN 26 (H) 7 - 21 mg/dL [facility] Creatinine 1.57 (H)Comment: Specimen 0.57 - 1.25 mg/dL [facility] Glucose 167 (H) 70 - 105 mg/dL [facility] Calcium 9.7 8.4 - 10.2 mg/dL [facility] AST 27Comment: Specimen slightly 5 - 34 U/L [facility] ALT 32Comment: Specimen slightly 6 - 55 U/L [facility] EGFR 47Comment: ESTIMATED GFR IS mL/min/1.[address] [facility] NOT ACCURATE CREATININE [facility] CLEARANCE IN PREDICTING GLOMERULAR FILTRATION RATE. ESTIMATED GFR IS NOT APPLICABLE FOR DIALYSIS PATIENTS. Specimen Blood Narrative Performed At Specimen slightly lipemic [facility] Performing Organization Address City/State/Zipcode Phone Number [facility] [address] [place] [address] MEDICAL CENTER * XR chest 1 view portable / bedside (08/30/2018 3:45 PM CDT) Only the most recent of 2 results within the time period is included. Specimen Narrative Performed At FINAL REPORT [employer] Chest, AP view, two images. History: Chest pain. Comparison: 02/21/2018. Discussion:The cardiomediastinal silhouette and pulmonary vasculature are within normal limits. The lungs are clear without evidence of consolidation or effusion.There are no acute osseous abnormalities. The soft tissues are unremarkable. IMPRESSION: No acute cardiopulmonary abnormality. Signed: Maryann Andrews MD Report Verified Date/Time:08/30/2018 16:00:00 Reading Location: [facility] Reading Room Procedure Note Interface, External Ris In - 08/30/2018 4:02 PM CDT FINAL REPORT Chest, AP view, two images. History: Chest pain. Comparison: 02/21/2018. Discussion: The cardiomediastinal silhouette and pulmonary vasculature are within normal limits. The lungs are clear without evidence of consolidation or effusion. There are no acute osseous abnormalities. The soft tissues are unremarkable. IMPRESSION: No acute cardiopulmonary abnormality. Signed: Maryann Andrews MD Report Verified Date/Time: 08/30/2018 16:00:00 Reading Location: [facility] Mammo Reading Room Performing Organization Address City/State/Zipcode Phone Number [employer] * Heparin antibody (06/04/2018 3:18 PM CDT) Heparin Ab Negative Negative [facility] Heparin Antibody Optical 0.078 <0.400 [facility] 4T Total Score 2 [facility] Specimen Blood Narrative Performed At Probability of HIT based on scoring system: [facility] 6-8=High probability; 4-5=intermediate probability; 0-3=low probability [facility] Performing Organization Address City/[facility] Phone Number [facility] [address] [place] [address] [facility] * POC-Glucose meter (06/04/2018 12:15 PM CDT) Only the most recent of 22 results within the time period is included. POC-Glucose Meter 101Comment: TESTED AT [facility] 70 - 110 mg/dL [address] Specimen Blood Performing Organization Address [facility] Phone Number [facility] [address] [place] [address] [facility] * PERIPHERAL VASCULAR REPORT - SCAN (06/03/2018 9:11 PM CDT) Narrative Performed At * MR lower extremity without IV contrast left side (06/03/2018 6:50 AM CDT) Specimen Narrative Performed At FINAL REPORT [facility] Indication: traumatic injury TECHNIQUE: Multiplanar multisequence MRI examination of the left tibia and fibula was performed without intravenous contrast. COMPARISON: Radiographs from 06/02/2018 FINDINGS: There is no fracture or traumatic malalignment. There is mild heterogeneous marrow signal. There is no fluid collection or hematoma. There is a wound or ulcer in the anterolateral aspect of the left lower leg. There is subcutaneous edema anteriorly suggestive of nonspecific cellulitis. The tendons and muscles are intact. There is no evidence of fasciitis, myositis or osteomyelitis. There is no muscle atrophy. IMPRESSION: 1. Nonspecific subcutaneous edema with wound or ulcer in the anterolateral aspect of the left lower leg. No fluid collection or hematoma. Signed: Chuckie Nelson MD Report Verified Date/Time:06/03/2018 08:29:15 Reading Location: [facility] B1 C013X Ortho Consult Reading Room Procedure Note Interface, External Ris In - 06/03/2018 8:31 AM CDT FINAL REPORT Indication: traumatic injury TECHNIQUE: Multiplanar multisequence MRI examination of the left tibia and fibula was performed without intravenous contrast. COMPARISON: Radiographs from 06/02/2018 FINDINGS: There is no fracture or traumatic malalignment. There is mild heterogeneous marrow signal. There is no fluid collection or hematoma. There is a wound or ulcer in the anterolateral aspect of the left lower leg. There is subcutaneous edema anteriorly suggestive of nonspecific cellulitis. The tendons and muscles are intact. There is no evidence of fasciitis, myositis or osteomyelitis. There is no muscle atrophy. IMPRESSION: 1. Nonspecific subcutaneous edema with wound or ulcer in the anterolateral aspect of the left lower leg. No fluid collection or hematoma. Signed: Chuckie Nelson MD Report Verified Date/Time: 06/03/2018 08:29:15 Reading Location: [facility] C013X Ortho Consult Reading Room Performing Organization Address City/State/Zipcode Phone Number [facility] * Urinalysis w/Microscopic + Reflex to Culture (06/02/2018 2:49 PM CDT) Color, UA Light Yellow [facility] Clarity, UA Clear [facility] Specific [place], UA 1.019 1.001 - 1.035 [facility] pH, UA 5.5 5.0 - 8.0 [facility] Protein, UA 50 mg/dL (A) Negative [facility] Glucose, UA >1000 mg/dL (A) Negative [facility] Ketones, UA Negative Negative [facility] Bilirubin, UA Negative Negative [facility] Blood, UA Negative Negative [facility] Nitrite, UA Negative Negative [facility] Leukocytes, UA Negative Negative [facility] Urobilinogen, UA 0.2 0.2 - 1.0 mg/dL [facility] RBC, UA 0 /HPF [facility] WBC, UA 1 /HPF [facility] Specimen Source [facility] Specimen Urine Performing Organization Address City/State/Zipcode Phone Number [facility] [address] [place] [address] [facility] * Venous doppler leg, left (06/02/2018 12:17 PM CDT) Ejection Fraction [facility] Specimen Impressions Performed At Right Impression [facility] Not ordered. [facility] Left Impression 1. There is no deep venous obstruction in the common femoral, profunda femoral, femoral, popliteal, posterior tibial or peroneal veins. 2. There is no superficial venous obstruction in the great saphenous vein. Conclusions Summary Venous duplex imaging and compression of the left lower extremity were performed. The veins were adequately visualized. The left venous system was patent and compressible with no evidence of thrombus. The venous Doppler waveforms were phasic with respiration. *Study compared to 04/13/2018. No change Signature Velocities are measured in cm/s ; Diameters are measured in cm Narrative Performed At [facility] - Lower Extremities DVT Study [facility] Demographics [facility] Patient Name DC BARNHART Date of Study 06/02/2018 YOHANNES [id number] Age 47 Visit Number [id number] GenderMale Accession Number [id number] Date of 1970 Wing Kruse Room Number [address] SonographPercy Interiano.InterpretingYandy Starks RVT, DANIEL Physician Procedure Type of Study: Veins: Lower Extremities DVT Study, VENOUS DOPPLER LEG, LEFT. Indications for Study:Evaluate for DVT. Patient Status:Routine. Study Location:Vascular Lab. Technical Quality:Technically Difficult. Risk Factors History of Disease + +----+ + !Diagnosis!Date!Comments ! + +----+ + !History/Risk !!Hypetension, diabetes, hyperlipidemia, CAD, recurrent! !Factors: !!left leg cellulitis since 2008, Lymphoma, smoker and ! ! !!morbid obesity. ! + +----+ + Procedure Note Interface, External Ris In - 06/02/2018 11:03 PM CDT [facility] - Lower Extremities DVT Study Demographics Patient Name DC BARNHART Date of Study 06/02/2018 YOHANNES Age 47 Visit Number [id number] Gender Male Accession Number [id number] Date of 1970 Referring Angela Kruse Room Number 7427 Physician Jeremiah NP [employer]iller Horacio Interiano. Interpreting Yandy Starks RVT, ARDMS Physician MD Procedure Type of Study: Veins: Lower Extremities DVT Study, VENOUS DOPPLER LEG, LEFT. Indications for Study:Evaluate for DVT. Patient Status:Routine. Study Location:Vascular Lab. Technical Quality:Technically Difficult. Risk Factors History of Disease + +----+ + !Diagnosis !Date!Comments ! + +----+ + !History/Risk ! !Hypetension, diabetes, hyperlipidemia, CAD, recurrent! !Factors: ! !left leg cellulitis since 2008, Lymphoma, smoker and ! ! ! !morbid obesity. ! + +----+ + Impressions Right Impression Not ordered. Left Impression 1. There is no deep venous obstruction in the common femoral, profunda femoral, femoral, popliteal, posterior tibial or peroneal veins. 2. There is no superficial venous obstruction in the great saphenous vein. Conclusions Summary Venous duplex imaging and compression of the left lower extremity were performed. The veins were adequately visualized. The left venous system was patent and compressible with no evidence of thrombus. The venous Doppler waveforms were phasic with respiration. *Study compared to 04/13/2018. No change Signature Velocities are measured in cm/s ; Diameters are measured in cm Performing Organization Address City/[facility] Phone Number [facility] * Blood Culture - Routine (Right Venipuncture) (06/02/2018 5:13 AM CDT) Only the most recent of 5 results within the time period is included. Result No growth in 5 days [facility] Specimen Blood Performing Organization Address [facility] [place] [address] [facility] * Creatine Kinase (CK) (06/02/2018 4:14 AM CDT) Total CK 302 (H) 29 - 200 U/L [facility] Specimen Blood Performing Organization Address [facility] [place] [address] [phone] [place] [address] * XR leg / tibia and fibula 2 views left (06/02/2018 1:10 AM CDT) Specimen Narrative Performed At FINAL REPORT RIS CLINICAL HISTORY: LEG PAIN FALL TECHNIQUE: AP and lateral views of the left tibia and fibula COMPARISON: Plain radiograph the left tibia and fibula dated 04/09/2011. IMPRESSION: The tibia and fibula are intact without evidence of fracture or dislocation. Vascular calcifications. No significant soft tissue abnormality. No ankle joint effusion. Osteopenia. No radiopaque foreign body. Signed: Marco Antonio Chavira MD Report Verified Date/Time:06/02/2018 01:32:15 Reading Location: [address] Transitional Reading Room Procedure Note Interface, External Ris In - 06/02/2018 1:34 AM CDT FINAL REPORT CLINICAL HISTORY: LEG PAIN FALL TECHNIQUE: AP and lateral views of the left tibia and fibula COMPARISON: Plain radiograph the left tibia and fibula dated 04/09/2011. IMPRESSION: The tibia and fibula are intact without evidence of fracture or dislocation. Vascular calcifications. No significant soft tissue abnormality. No ankle joint effusion. Osteopenia. No radiopaque foreign body. Signed: Marco Antonio Chavira MD Report Verified Date/Time: 06/02/2018 01:32:15 Reading Location: [facility] C013T Transitional Reading Room Performing Organization Address City/State/Zipcode Phone Number [employer] * CT abdomen/pelvis with IV contrast (03/22/2018 4:45 PM [employer]) Only the most recent of 2 results within the time period is included. Specimen Narrative Performed At FINAL REPORT [employer] TECHNIQUE: CT of the abdomen and pelvis WITH intravenous contrast and WITHOUT oral contrast. Dose modulation, iterative reconstruction, and/or weight-based adjustment of the mA/kV was utilized to reduce the radiation dose to as low as reasonably achievable. INDICATION: 47-year-old man with abdominal pain. COMPARISON: Abdomen and pelvis CT 02/19/2018. FINDINGS: LOWER THORAX: Unremarkable. HEPATOBILIARY: No focal hepatic lesions. Gallbladder is unremarkable. No biliary ductal dilatation. SPLEEN: No splenomegaly. Unchanged benign 4 x 1.9 cm cystic structure along the medial aspect of the spleen. PANCREAS: No focal masses or ductal dilatation. ADRENALS: No adrenal nodules. KIDNEYS/URETERS: No hydronephrosis, stones, or solid mass lesions. PELVIC ORGANS/BLADDER: The bladder is underdistended, limiting its evaluation. Prostate and seminal vesicles are grossly unremarkable. PERITONEUM/RETROPERITONEUM: No free air or fluid. LYMPH NODES: No lymphadenopathy. VESSELS: Unchanged perigastric/perisplenic collateral vessels. GI TRACT: No distention or wall thickening. Normal appendix. BONES AND SOFT TISSUES: Degenerative changes of the visualized spine. Soft tissues are unremarkable. IMPRESSION: No acute abnormalities in the abdomen or pelvis. Signed: Jasmyn Marquis MD Report Verified Date/Time:03/22/2018 17:05:44 Reading Location: [facility] B1 C013Y CT Body Reading Room Procedure Note Interface, External Ris In - 03/22/2018 5:07 PM [employer] FINAL REPORT TECHNIQUE: CT of the abdomen and pelvis WITH intravenous contrast and WITHOUT oral contrast. Dose modulation, iterative reconstruction, and/or weight-based adjustment of the mA/kV was utilized to reduce the radiation dose to as low as reasonably achievable. INDICATION: 47-year-old man with abdominal pain. COMPARISON: Abdomen and pelvis CT 02/19/2018. FINDINGS: LOWER THORAX: Unremarkable. HEPATOBILIARY: No focal hepatic lesions. Gallbladder is unremarkable. No biliary ductal dilatation. SPLEEN: No splenomegaly. Unchanged benign 4 x 1.9 cm cystic structure along the medial aspect of the spleen. PANCREAS: No focal masses or ductal dilatation. ADRENALS: No adrenal nodules. KIDNEYS/URETERS: No hydronephrosis, stones, or solid mass lesions. PELVIC ORGANS/BLADDER: The bladder is underdistended, limiting its evaluation. Prostate and seminal vesicles are grossly unremarkable. PERITONEUM/RETROPERITONEUM: No free air or fluid. LYMPH NODES: No lymphadenopathy. VESSELS: Unchanged perigastric/perisplenic collateral vessels. GI TRACT: No distention or wall thickening. Normal appendix. BONES AND SOFT TISSUES: Degenerative changes of the visualized spine. Soft tissues are unremarkable. IMPRESSION: No acute abnormalities in the abdomen or pelvis. Signed: Jasmyn Marquis MD Report Verified Date/Time: 03/22/2018 17:05:44 Reading Location: [address] Body Reading Room Performing Organization Address City/State/Zipcode Phone Number [facility] * RHYTHM STRIP - SCAN (03/03/2018 2:20 PM [employer]) Narrative Performed At * Clostridium difficile [facility] Toxin (02/24/2018 11:16 AM [employer]) C. Difficle Toxin Negative Negative [facility] C. Difficile [facility] Antigen NegativeComment: No indication Negative [facility] of Clostridium difficile [facility] infection and no colonization. Discontinue enteric isolation and therapy. Specimen Stool Narrative Performed At Testing performed by Proteopure Rapid Cassette Assay.For [facility], published [facility] sensitivity of the assay is 98.7% compared to cytotoxicity testing.For Toxin [facility] AB, published sensitivity is 87.8% and specificity 99.4% compared to cytotoxicity testing. Verification of kit performance was done by the [facility] Microbiology Lab prior to clinical use. Performing Organization Address City/[facility]/Zipcode Phone Number [facility] [address] [place] [address] [facility] * Pancreatic elastase, fecal (02/24/2018 11:16 AM [employer]) Pancreatic Elastase >500 mcg/g [facility] Comment: INCORPORATED Adult and Pediatric Reference Ranges for Pancreatic Elastase-1: Normal:>200 mcg/g Moderate Pancreatic Insufficiency: 100-200 mcg/g Severe Pancreatic Insufficiency: <100 mcg/g Elastase-1 (E-1) assay results are expressed in mcg/g, which represent mcg E1/g feces. It is not necessary to interrupt enzyme substitution therapy. Specimen Stool Narrative Performed At Performing Lab [facility] [place] [address] [place] [id number] Jd Jeter MD, PhD, ELIU Performing Organization Address [facility] Phone Number [facility] [place], [address] [place], [place] [facility] [address] * STOOL PATH CHARGE (02/24/2018 11:00 AM HARNESS AND BAG INSPECTOR) Pathogen exam charged Done [facility] Specimen Stool Performing Organization Address City/[facility] Phone Number [address] [address] [facility] * Stool culture + Shiga toxin (02/24/2018 11:00 AM HARNESS AND BAG INSPECTOR) Result No Salmonella, Shigella or [facility] Campylobacter isolated [facility] Specimen Stool Narrative Performed At Unable to test for Shiga Toxin 1 due to insufficient growth of specimen. [facility] Unable to test for Shiga Toxin 2 due to insufficient growth of specimen. [facility] Resubmit new specimen if clinically indicated. Insufficient growth in GN broth02/25/20183:01 PMDavid Villanueva Performing Organization Address City/[facility]/Zipcode Phone Number [address] * Tissue Transglutaminase Abs,IgG and IgA (02/24/2018 6:40 AM HARNESS AND BAG INSPECTOR) (tTG) Ab, IgG 1 U/mL [facility] Comment: INCORPORATED <6 No Antibody Detected > OR=6 Antibody Detected (tTG) Ab, IgA <1 U/mL [facility] Comment: INCORPORATED <4 No Antibody Detected > OR=4 Antibody Detected Specimen Blood Narrative Performed At Performing Lab [facility] [place] [facility] [address] [address] Jd Jeter MD, PhD, ELIU Performing Organization Address City/[facility] Phone Number [facility], [address] [place] [address] [email or web address] [address] * TSH/Free T4 If Indicated (02/23/2018 6:00 AM HARNESS AND BAG INSPECTOR) TSH 6.66 (H) 0.35 - 4.94 uIU/mL [facility] Specimen Blood Performing Organization Address City/[facility] Phone Number [address] * T4, free (02/23/2018 6:00 AM HARNESS AND BAG INSPECTOR) Free T4 0.78 0.70 - 1.48 ng/dL [facility] Specimen Blood Performing Organization Address City/[facility] Phone Number [address] * C-Reactive Protein (02/22/2018 3:34 PM HARNESS AND BAG INSPECTOR) CRP 0.47 0.00 - 0.50 mg/dL [facility] Specimen Blood Performing Organization Address [facility] Phone Number [address] * Ova and Parasite Examination (02/22/2018 2:45 PM HARNESS AND BAG INSPECTOR) O&P Concentrate Smear No ova or parasites seen No ova or parasites seen [facility] O&P Trichrome Smear No ova or parasites seen No ova or parasites seen [facility] Specimen Stool Narrative Performed At Performing Organization Address City/State/Zipcode Phone Number [facility] [address] [place] [address] [facility] * NM hepatobiliary (HIDA) scan (02/22/2018 9:52 AM HARNESS AND BAG INSPECTOR) Specimen Narrative Performed At FINAL REPORT [facility] [employer] PROCEDURE: HEPATOBILIARY SCAN CPT CODE: [id number] INDICATION: Right upper quadrant pain cholecystitis suspected, equivocal ultrasound PROTOCOL: 5.3 mCi of Tc-99m mebrofenin was injected intravenously. Images of the upper abdomen were obtained for approximately 60 minutes after tracer injection. FINDINGS:Initial tracer uptake into the liver is physiological. Subsequent tracer clearance from the liver proceeds normally. There is good visualization of the extrahepatic biliary duct and the gallbladder, and the tracer appears appropriately in the small bowel. IMPRESSION:Normal hepatobiliary scan. Signed: Mendel Colunga MD Report Verified Date/Time:02/22/2018 11:28:21 Reading Location: [address] [employer] Reading Room Procedure Note Interface, External Ris In - 02/22/2018 11:30 AM HARNESS AND BAG INSPECTOR FINAL REPORT PROCEDURE: HEPATOBILIARY SCAN CPT CODE: [id number] INDICATION: Right upper quadrant pain cholecystitis suspected, equivocal ultrasound PROTOCOL: 5.3 mCi of Tc-99m mebrofenin was injected intravenously. Images of the upper abdomen were obtained for approximately 60 minutes after tracer injection. FINDINGS: Initial tracer uptake into the liver is physiological. Subsequent tracer clearance from the liver proceeds normally. There is good visualization of the extrahepatic biliary duct and the gallbladder, and the tracer appears appropriately in the small bowel. IMPRESSION: Normal hepatobiliary scan. Signed: Mendel Colunga MD Report Verified Date/Time: 02/22/2018 11:28:21 Reading Location: [address] [employer] Reading Room Performing Organization Address City/State/Zipcode Phone Number [employer] * Urinalysis w/Microscopic (02/22/2018 5:46 AM HARNESS AND BAG INSPECTOR) Only the most recent of 2 results within the time period is included. Color, UA Yellow [facility] Clarity, UA Clear [facility] Specific [place], UA 1.020 1.001 - 1.035 [facility] pH, UA 6.0 5.0 - 8.0 [facility] Protein, UA 300 mg/dL (A) Negative [facility] Glucose, UA 1000 mg/dL (A) Negative [facility] Ketones, UA Negative Negative [facility] Bilirubin, UA Negative Negative [facility] Blood, UA Negative Negative [facility] Nitrite, UA Negative Negative [facility] Leukocytes, UA Negative Negative [facility] Urobilinogen, UA 0.2 0.2 - 1.0 mg/dL [facility] RBC, UA 2 /HPF [facility] WBC, UA 1 /HPF [facility] Bacteria, UA Few [facility] Mucus Occasional [facility] Specimen Source Urine, Voided [facility] Specimen Urine Performing Organization Address City/[facility] Phone Number [facility] [address] [place] [address] [facility] * Gamma Glutamyl Transferase (GGT) (02/22/2018 12:24 AM HARNESS AND BAG INSPECTOR) GGT 23 9 - 64 U/L [facility] Specimen Blood Performing Organization Address City/[facility] Phone Number [facility] [address] [place] [address] [facility] * Ketone, blood (02/22/2018 12:24 AM HARNESS AND BAG INSPECTOR) Only the most recent of 4 results within the time period is included. Ketones, Blood 0.1 <0.4 mmol/L [facility] Specimen Blood Performing Organization Address City/State/Zipcode Phone Number [facility] [address] [place] [address] [facility] * US abdomen limited (02/21/2018 8:58 PM HARNESS AND BAG INSPECTOR) Specimen Narrative Performed At FINAL REPORT [employer] Right Upper Quadrant Ultrasound Clinical Diagnosis: Abdominal pain Comparison: Multiple prior exams Technique: Multiple transaxial and longitudinal images were obtained through the right upper quadrant with real time ultrasonography. Five mHz transducer was utilized.48 images were submitted for interpretation. Report: Liver: The liver measures 18.8 cm in the right midaxillary line. There are no focal masses.The echogenicity is increased. Gallbladder: The gallbladder was not visualized on this exam. Biliary tree: The filipe hepatis was not adequately seen. Portal vein: The portal vein was not adequately visualized. Ascites: Negative Pleural Effusion: Negative Right kidney: The right kidney measures 11.9 cm. in length without evidence of hydronephrosis. Aorta and IVC: Midline abdominal structures and not well visualized. Not adequately visualized secondary to overlying bowel gas and the patient's body habitus. Impression: Hepatomegaly with fatty infiltration. Inadequate visualization of the midline abdominal structures and filipe hepatis secondary to overlying bowel gas increased echogenicity through the liver and the patient's body habitus Signed: Liana Jauregui MD Report Verified Date/Time:02/21/2018 21:23:48 Reading Location: [facility] C0[facility] Consult Reading Room Procedure Note Interface, External Ris In - 02/21/2018 9:25 PM HARNESS AND BAG INSPECTOR FINAL REPORT Right Upper Quadrant Ultrasound Clinical Diagnosis: Abdominal pain Comparison: Multiple prior exams Technique: Multiple transaxial and longitudinal images were obtained through the right upper quadrant with real time ultrasonography. Five mHz transducer was utilized. 48 images were submitted for interpretation. Report: Liver: The liver measures 18.8 cm in the right midaxillary line. There are no focal masses. The echogenicity is increased. Gallbladder: The gallbladder was not visualized on this exam. Biliary tree: The filipe hepatis was not adequately seen. Portal vein: The portal vein was not adequately visualized. Ascites: Negative Pleural Effusion: Negative Right kidney: The right kidney measures 11.9 cm. in length without evidence of hydronephrosis. Aorta and IVC: Midline abdominal structures and not well visualized. Not adequately visualized secondary to overlying bowel gas and the patient's body habitus. Impression: Hepatomegaly with fatty infiltration. Inadequate visualization of the midline abdominal structures and filipe hepatis secondary to overlying bowel gas increased echogenicity through the liver and the patient's body habitus Signed: Liana Jauregui MD Report Verified Date/Time: 02/21/2018 21:23:48 Reading Location: [facility] C013 Consult Reading Room Performing Organization Address City/[facility] Phone Number [facility] * POC-Lactic Acid, Venous (02/21/2018 6:31 PM HARNESS AND BAG INSPECTOR) POC-Lactic Acid, Venous 1.4Comment: TESTED AT [facility] 0.9 - 1.7 mmol/L [address] Specimen Blood Performing Organization Address [facility] Phone Number [address] * ALT (SGPT) (02/21/2018 6:25 PM HARNESS AND BAG INSPECTOR) ALT 34Comment: Specimen slightly 6 - 55 U/L [facility] Specimen Blood Performing Organization Address [facility] Phone Number [address] * AST (SGOT) (02/21/2018 6:25 PM HARNESS AND BAG INSPECTOR) AST 24Comment: Specimen slightly 5 - 34 U/L [facility] Specimen Blood Performing Organization Address [facility] Phone Number [address] * Alkaline phosphatase (02/21/2018 6:25 PM HARNESS AND BAG INSPECTOR) Alkaline Phosphatase 79 40 - 150 U/L [facility] Specimen Blood Performing Organization Address City/[facility] Phone Number [id number] [place] [address] * Bilirubin, adult total (02/21/2018 6:25 PM HARNESS AND BAG INSPECTOR) Total Bilirubin 0.5Comment: Specimen slightly 0.2 - 1.2 mg/dL [facility] Specimen Blood Performing Organization Address City/[facility] Phone Number [address] * Phosphorus (01/31/2018 1:05 PM HARNESS AND BAG INSPECTOR) Phosphorus 2.3Comment: Specimen markedly 2.3 - 4.7 mg/dL [facility] Specimen Blood Performing Organization Address [facility] Phone Number [address] * Blood gas, venous (12/06/2017 12:40 PM CDT) pH, Rahat 7.41 7.32 - 7.42 [facility] pCO2, Rahat 44 41 - 51 mmHg [facility] pO2, Rahat 33 25 - 40 mmHg [facility] O2 Sat, Rahat 67.3 40.0 - 70.0 % [facility] HCO3, Rahat 27 21 - 29 mmol/L [facility] Base Excess, Rahat 1.6 -2.0 - 3.0 mmol/L [facility] Patient Temperature 36.0 C [facility] FIO2 21.0 % [facility] Specimen Blood Performing Organization Address City/[facility] Phone Number [address] [address] [phone] * Creatine Kinase (CK), Total and MB (not available at [facility] [place]) (12/06/2017 12:37 PM CDT) Total CK 188 29 - 200 U/L [facility] CK-MB 3.1 0.0 - 6.6 ng/mL [facility] MB Relative Index 1.6 % [facility] Specimen Blood Narrative Performed At CK-MB Reference Range: [facility] <6.7Normal [facility] 6.7-10.0Borderline >10.0 Abnormal Performing Organization Address City/State/Zipcode Phone Number [facility] [address] [place] [address] [facility] after 12/06/2017 Insurance Payer Benefit Subscriber ID Type Phone Address Plan / Group [employer] HMO xxxxxxxxxxxx HMO/POS [phone] [address] [place] [address] TIALS OTHER-COMMERCIAL GENERIC xxxxxxxxxxxxx COMMERCIAL Advance Directives For more information, please contact: [facility] [address] [place], [place] [id number] Date Inactivated Comments Code Status Date Activated 03/22/2018 2:45 PM Full Code 02/21/2018 9:07 PM This code status was determined by: Patient 07/02/2017 4:32 PM Full Code 06/29/2017 4:03 [...]
--- OUTSIDE RECORDS SUMMARY | 2018-12-07 00:19 | XMS REPORT ---
Author Author [facility] Address Unknown Phone Unavailable Care Team Providers Care Clay Pigeon Setter Name Role Phone PARMINDER PEDRO Unavailable Unavailable WHITNEY ALCANTARA Unavailable Unavailable WHITNEY PINZON Unavailable Unavailable TORRES BETTS Unavailable Unavailable LUZMARIA ROOT Unavailable Unavailable Katina MCGOWAN Unavailable Unavailable KULDIP WISDOM Unavailable Unavailable VANDANA GUTHRIE Unavailable Unavailable GUZMANWON BONILLA Unavailable Unavailable Shekhar VENCES Unavailable Unavailable Katina POWERS Unavailable Unavailable Dereck WALSH Unavailable Unavailable EDER, Lg PADILLA Unavailable Unavailable XIMENA, Buddy TAY Unavailable Unavailable GUZMAN, Aubree TUE Unavailable Unavailable SABINE, ARIF Unavailable Unavailable SKEFOSRUTH CHRYSTAN Unavailable Unavailable Problems This patient has no known problems. Allergies, Adverse Reactions, Alerts This patient has no known allergies or adverse reactions. Medications This patient has no known medications. Results Test Description Test Time Test Comments Text Results Atomic Results Result Comments LIPASE 2018-10-04 04:09:00 LIPASE (BEAKER) (test eaxl=049) 38 U/L 8-78 [id number] 04:09:00* Test Item Value Reference Range Comments AMYLASE (BEAKER) (test vflx=928) 71 U/L 25-125 BASIC METABOLIC [id number] 04:09:00* Test Item Value Reference Range Comments SODIUM (BEAKER) (test iyda=195) 135 meq/L 136-145 POTASSIUM (BEAKER) (test kvtl=777) 3.7 meq/L 3.5-5.1 CHLORIDE (BEAKER) (test owqg=425) 106 meq/L 98-107 CO2 (BEAKER) (test cncb=120) 19 meq/L 22-29 BLOOD UREA NITROGEN (BEAKER) (test amav=072) 21 mg/dL 7-21 CREATININE (BEAKER) (test kjgb=259) 1.21 mg/dL 0.57-1.25 GLUCOSE RANDOM (BEAKER) (test vssn=473) 249 mg/dL 70-105 CALCIUM (BEAKER) (test gwfv=549) 8.9 mg/dL 8.4-10.2 EGFR (BEAKER) (test ydlc=2887) 64 mL/min/1.73 sq m ESTIMATED GFR IS NOT ACCURATE CREATININE CLEARANCE IN PREDICTING GLOMERULAR FILTRATION RATE. ESTIMATED GFR IS NOT APPLICABLE FOR DIALYSIS PATIENTS. HEPATIC FUNCTION [id number] 04:09:00* Test Item Value Reference Range Comments TOTAL PROTEIN (BEAKER) (test tmhk=739) 6.8 gm/dL 6.0-8.3 ALBUMIN (BEAKER) (test daag=1099) 3.7 g/dL 3.5-5.0 BILIRUBIN TOTAL (BEAKER) (test kdxk=888) 0.4 mg/dL 0.2-1.2 BILIRUBIN DIRECT (BEAKER) (test ypmb=305) 0.2 mg/dL 0.1-0.5 ALKALINE PHOSPHATASE (BEAKER) (test osne=015) 78 U/L 40-150 AST (SGOT) (BEAKER) (test zdhw=852) 14 U/L 5-34 ALT (SGPT) (BEAKER) (test ahft=354) 21 U/L 6-55 CBC W/PLT COUNT & AUTO [id number] 03:13:00* Test Item Value Reference Range Comments WHITE BLOOD CELL COUNT (BEAKER) (test uciu=427) 3.8 K/ L 3.5-10.5 RED BLOOD CELL COUNT (BEAKER) (test wecc=107) 5.26 M/ L 4.63-6.08 HEMOGLOBIN (BEAKER) (test jfwe=746) 16.2 GM/DL 13.7-17.5 HEMATOCRIT (BEAKER) (test ckjx=845) 48.0 % 40.1-51.0 MEAN CORPUSCULAR VOLUME (BEAKER) (test scmq=750) 91.3 fL 79.0-92.2 MEAN CORPUSCULAR HEMOGLOBIN (BEAKER) (test bmtc=561) 30.8 pg 25.7-32.2 MEAN CORPUSCULAR HEMOGLOBIN CONC (BEAKER) (test dkao=902) 33.8 GM/DL 32.3-36.5 RED CELL DISTRIBUTION WIDTH (BEAKER) (test retz=200) 13.7 % 11.6-14.4 PLATELET COUNT (BEAKER) (test qrac=628) 95 K/CU MM 150-450 MEAN PLATELET VOLUME (BEAKER) (test jfgf=619) 11.0 fL 9.4-12.4 NUCLEATED RED BLOOD CELLS (BEAKER) (test xzbz=355) 0 /100 WBC 0-0 NEUTROPHILS RELATIVE PERCENT (BEAKER) (test mpnc=448) 49 % LYMPHOCYTES RELATIVE PERCENT (BEAKER) (test pmhp=028) 36 % MONOCYTES RELATIVE PERCENT (BEAKER) (test ninx=552) 11 % EOSINOPHILS RELATIVE PERCENT (BEAKER) (test mvzc=902) 3 % BASOPHILS RELATIVE PERCENT (BEAKER) (test kgeq=551) 0 % NEUTROPHILS ABSOLUTE COUNT (BEAKER) (test brxq=467) 1.87 K/ L 1.78-5.38 LYMPHOCYTES ABSOLUTE COUNT (BEAKER) (test xwrb=169) 1.39 K/ L 1.32-3.57 MONOCYTES ABSOLUTE COUNT (BEAKER) (test qmxw=403) 0.41 K/ L 0.30-0.82 EOSINOPHILS ABSOLUTE COUNT (BEAKER) (test kuwf=572) 0.13 K/ L 0.04-0.54 BASOPHILS ABSOLUTE COUNT (BEAKER) (test cjhi=729) 0.01 K/ L 0.01-0.08 IMMATURE GRANULOCYTES-RELATIVE PERCENT (BEAKER) (test lkmq=8174) 1 % 0-1 [id number] 17:09:00* Test Item Value Reference Range Comments LIPASE (BEAKER) (test aylg=741) 25 U/L 8-78 TROPONIN [id number] 16:30:00* Test Item Value Reference Range Comments TROPONIN I (BEAKER) (test etxj=947) 0.03 ng/mL 0.00-0.03 Troponin I (TnI) levels must be interpreted in the context of the presenting sym ptoms and the clinical findings. Elevated TnI levels indicate myocardial damage, but are not specific for ischemic heart disease. Elevated TnI levels are seen in patients with other cardiac conditions (including myocarditis and congestive h eart failure), and slight TnI elevations occur in patients with other conditions , including sepsis, renal failure, acidosis, acute neurological disease, and per sistent tachyarrhythmia.[id number] 16:23:00* Test Item Value Reference Range Comments MAGNESIUM (BEAKER) (test cudg=539) 2.2 mg/dL 1.6-2.6 Specimen slightly hemolyzed COMPREHENSIVE METABOLIC [id number] 16:23:00* Test Item Value Reference Range Comments TOTAL PROTEIN (BEAKER) (test rnsy=280) 7.6 gm/dL 6.0-8.3 Specimen slightly hemolyzed ALBUMIN (BEAKER) (test dhqg=8936) 4.0 g/dL 3.5-5.0 Specimen slightly hemolyzed ALKALINE PHOSPHATASE (BEAKER) (test ebjt=197) 76 U/L 40-150 BILIRUBIN TOTAL (BEAKER) (test bndv=693) 0.6 mg/dL 0.2-1.2 Specimen slightly hemolyzed SODIUM (BEAKER) (test knjf=789) 139 meq/L 136-145 POTASSIUM (BEAKER) (test tqqe=426) 3.5 meq/L 3.5-5.1 Specimen slightly hemolyzed CHLORIDE (BEAKER) (test chmn=132) 105 meq/L 98-107 CO2 (BEAKER) (test twyf=582) 24 meq/L 22-29 BLOOD UREA NITROGEN (BEAKER) (test ktgx=452) 26 mg/dL 7-21 CREATININE (BEAKER) (test luag=153) 1.57 mg/dL 0.57-1.25 Specimen slightly hemolyzed GLUCOSE RANDOM (BEAKER) (test zsda=820) 167 mg/dL 70-105 CALCIUM (BEAKER) (test ppfy=672) 9.7 mg/dL 8.4-10.2 AST (SGOT) (BEAKER) (test guvs=041) 27 U/L 5-34 Specimen slightly hemolyzed ALT (SGPT) (BEAKER) (test tlbx=622) 32 U/L 6-55 Specimen slightly hemolyzed EGFR (BEAKER) (test tlof=2664) 47 mL/min/1.73 sq m ESTIMATED GFR IS NOT ACCURATE CREATININE CLEARANCE IN PREDICTING GLOMERULAR FILTRATION RATE. ESTIMATED GFR IS NOT APPLICABLE FOR DIALYSIS PATIENTS. Specimen slightly lipemicPT/[id number] 16:12:00* Test Item Value Reference Range Comments PROTIME (BEAKER) (test ugeu=551) 14.5 seconds 11.9-14.2 INR (BEAKER) (test taum=654) 1.2 <=5.9 PARTIAL THROMBOPLASTIN TIME (BEAKER) (test kslv=207) 26.2 seconds 22.5-36.0 Effective 08/16/2018: PT Reference Range ChangeNew: 11.9-14.2 Previous: 11.7-14. 7RECOMMENDED COUMADIN/WARFARIN INR THERAPY RANGESSTANDARD DOSE: 2.0-3.0 Include s: PROPHYLAXIS for venous thrombosis, systemic embolization; TREATMENT for venou s thrombosis and/or pulmonary embolus.HIGH RISK: Target INR is 2.5-3.5 for patie nts wiht mechanical heart valves.CBC W/PLT COUNT & AUTO [id number] 16:04:00* Test Item Value Reference Range Comments WHITE BLOOD CELL COUNT (BEAKER) (test cjlf=876) 5.7 K/ L 3.5-10.5 RED BLOOD CELL COUNT (BEAKER) (test vyvp=900) 5.53 M/ L 4.63-6.08 HEMOGLOBIN (BEAKER) (test uooh=484) 16.8 GM/DL 13.7-17.5 HEMATOCRIT (BEAKER) (test amtz=580) 48.7 % 40.1-51.0 MEAN CORPUSCULAR VOLUME (BEAKER) (test yrqt=364) 88.1 fL 79.0-92.2 MEAN CORPUSCULAR HEMOGLOBIN (BEAKER) (test oupo=539) 30.4 pg 25.7-32.2 MEAN CORPUSCULAR HEMOGLOBIN CONC (BEAKER) (test dxyn=704) 34.5 GM/DL 32.3-36.5 RED CELL DISTRIBUTION WIDTH (BEAKER) (test gasc=885) 14.2 % 11.6-14.4 PLATELET COUNT (BEAKER) (test mlbf=283) 124 K/CU MM 150-450 MEAN PLATELET VOLUME (BEAKER) (test acho=235) 11.8 fL 9.4-12.4 NUCLEATED RED BLOOD CELLS (BEAKER) (test exry=726) 0 /100 WBC 0-0 NEUTROPHILS RELATIVE PERCENT (BEAKER) (test rlvy=640) 65 % LYMPHOCYTES RELATIVE PERCENT (BEAKER) (test fikc=158) 23 % MONOCYTES RELATIVE PERCENT (BEAKER) (test ghrm=569) 10 % EOSINOPHILS RELATIVE PERCENT (BEAKER) (test nrjg=430) 2 % BASOPHILS RELATIVE PERCENT (BEAKER) (test ztam=187) 1 % NEUTROPHILS ABSOLUTE COUNT (BEAKER) (test iooz=646) 3.71 K/ L 1.78-5.38 LYMPHOCYTES ABSOLUTE COUNT (BEAKER) (test jrzq=004) 1.29 K/ L 1.32-3.57 MONOCYTES ABSOLUTE COUNT (BEAKER) (test gqxg=352) 0.55 K/ L 0.30-0.82 EOSINOPHILS ABSOLUTE COUNT (BEAKER) (test eicq=344) 0.10 K/ L 0.04-0.54 BASOPHILS ABSOLUTE COUNT (BEAKER) (test faqd=727) 0.03 K/ L 0.01-0.08 IMMATURE GRANULOCYTES-RELATIVE PERCENT (BEAKER) (test sqvq=8108) 1 % 0-1 RAD, CHEST, 1 VIEW, NON [id number] 16:00:00Reason for exam:->chest painShould this be performed at the bedside?->YesFINAL REPORT Chest, AP view, two images. History: Chest pain. Comparison: 02/21/2018. Discussion: The cardiomediastinal silhouette and pulmonary vasculature are within normal limits. The lungs are clear without evidence of consolidation or effusion. There are no acute osseous abnormalities. The soft tissues are unremarkable. IMPRESSION: No acute cardiopulmonary abnormality. Signed: Maryann Andrews MDReport Verified Date/Time: 08/30/2018 16:00:00 Re ading Location: [facility] Mammo Reading Room D [id number] 12:01:00* Test Item Value Reference Range Comments CULTURE (BEAKER) (test umuy=6050) No growth in 5 days BLOOD [id number] 12:01:00* Test Item Value Reference Range Comments CULTURE (BEAKER) (test fhrh=5634) No growth in 5 days HEPARIN [id number] 13:27:00* Test Item Value Reference Range Comments HEPARIN ANTIBODY (BEAKER) (test nlnp=161) Negative Negative HEPARIN ANTIBODY OD (BEAKER) (test ieny=8186) 0.078 <0.400 4T TOTAL SCORE (BEAKER) (test dlfb=2729) 2 Probability of HIT based on scoring system: 6-8=High probability; 4-5=intermedi ate probability; 0-3=low probabilityCBC W/PLT COUNT & AUTO DIFFERENTIAL 2018-06-04 13:49:00* Test Item Value Reference Range Comments WHITE BLOOD CELL COUNT (BEAKER) (test yavh=547) 3.7 K/ L 3.5-10.5 RED BLOOD CELL COUNT (BEAKER) (test zvaa=741) 4.76 M/ L 4.63-6.08 HEMOGLOBIN (BEAKER) (test znxk=047) 14.2 GM/DL 13.7-17.5 HEMATOCRIT (BEAKER) (test fshc=778) 43.4 % 40.1-51.0 MEAN CORPUSCULAR VOLUME (BEAKER) (test ezgo=881) 91.2 fL 79.0-92.2 MEAN CORPUSCULAR HEMOGLOBIN (BEAKER) (test vllu=778) 29.8 pg 25.7-32.2 MEAN CORPUSCULAR HEMOGLOBIN CONC (BEAKER) (test lsfv=239) 32.7 GM/DL 32.3-36.5 RED CELL DISTRIBUTION WIDTH (BEAKER) (test thbj=327) 15.3 % 11.6-14.4 PLATELET COUNT (BEAKER) (test ozui=217) 93 K/CU MM 150-450 MEAN PLATELET VOLUME (BEAKER) (test walc=311) 11.5 fL 9.4-12.4 NUCLEATED RED BLOOD CELLS (BEAKER) (test vdlo=535) 0 /100 WBC 0-0 NEUTROPHILS RELATIVE PERCENT (BEAKER) (test ymhb=505) 51 % LYMPHOCYTES RELATIVE PERCENT (BEAKER) (test gqyc=564) 30 % MONOCYTES RELATIVE PERCENT (BEAKER) (test sadr=418) 15 % EOSINOPHILS RELATIVE PERCENT (BEAKER) (test hfag=799) 4 % BASOPHILS RELATIVE PERCENT (BEAKER) (test gwpj=697) 1 % NEUTROPHILS ABSOLUTE COUNT (BEAKER) (test kbcl=319) 1.88 K/ L 1.78-5.38 LYMPHOCYTES ABSOLUTE COUNT (BEAKER) (test hoju=796) 1.11 K/ L 1.32-3.57 MONOCYTES ABSOLUTE COUNT (BEAKER) (test fmvb=931) 0.54 K/ L 0.30-0.82 EOSINOPHILS ABSOLUTE COUNT (BEAKER) (test adns=504) 0.14 K/ L 0.04-0.54 BASOPHILS ABSOLUTE COUNT (BEAKER) (test pfwk=940) 0.02 K/ L 0.01-0.08 IMMATURE GRANULOCYTES-RELATIVE PERCENT (BEAKER) (test wfkw=5229) 1 % 0-1 POCT-GLUCOSE [id number] 12:45:00* Test Item Value Reference Range Comments POC-GLUCOSE METER (BEAKER) (test yvtn=9984) 101 mg/dL 70-110 TESTED AT [address] [address] POCT-GLUCOSE [id number] 09:16:00* Test Item Value Reference Range Comments POC-GLUCOSE METER (BEAKER) (test ujdf=2594) 106 mg/dL 70-110 TESTED AT [address] [address] BASIC METABOLIC [id number] 06:49:00* Test Item Value Reference Range Comments SODIUM (BEAKER) (test mfgy=361) 137 meq/L 136-145 POTASSIUM (BEAKER) (test qiou=849) 3.7 meq/L 3.5-5.1 CHLORIDE (BEAKER) (test ybbh=801) 103 meq/L 98-107 CO2 (BEAKER) (test xcgb=033) 25 meq/L 22-29 BLOOD UREA NITROGEN (BEAKER) (test odfc=997) 16 mg/dL 7-21 CREATININE (BEAKER) (test wswn=948) 1.16 mg/dL 0.57-1.25 GLUCOSE RANDOM (BEAKER) (test cwfv=719) 134 mg/dL 70-105 CALCIUM (BEAKER) (test zxps=175) 8.7 mg/dL 8.4-10.2 EGFR (BEAKER) (test lrzb=3268) 67 mL/min/1.73 sq m ESTIMATED GFR IS NOT ACCURATE CREATININE CLEARANCE IN PREDICTING GLOMERULAR FILTRATION RATE. ESTIMATED GFR IS NOT APPLICABLE FOR DIALYSIS PATIENTS. POCT-GLUCOSE [id number] 21:07:00* Test Item Value Reference Range Comments POC-GLUCOSE METER (BEAKER) (test ciha=6669) 174 mg/dL 70-110 TESTED AT [address] [address] POCT-GLUCOSE [id number] 18:18:00* Test Item Value Reference Range Comments POC-GLUCOSE METER (BEAKER) (test yxhb=8088) 167 mg/dL 70-110 TESTED AT [facility] [address] [facility] [address] POCT-GLUCOSE [id number] 12:34:00* Test Item Value Reference Range Comments POC-GLUCOSE METER (BEAKER) (test ipyw=3782) 129 mg/dL 70-110 TESTED AT [facility] [address] [address] MR, EXTREMITY, LOWER, WITHOUT CONTRAST, [id number] 08:29:00Reason for exam:- >traumatic injuryFINAL REPORT Indication: traumatic injury TECHNIQUE: Multiplanar multisequence [...] or osteomyelitis. There is no muscle atrophy. IMPRESSION:1. Nonspecific subcutaneous edema with wound or ulcer in the anterolateral aspect of the left lower leg. No fluid collection or hematoma. Signed: Chuckie Nelson MDRort Verified Date/Time: 06/03/2018 08:29:15 Reading Location: [facility] C013X Ortho Consult Reading Room C METABOLIC [id number] 07:51:00* Test Item Value Reference Range Comments SODIUM (BEAKER) (test isut=963) 138 meq/L 136-145 POTASSIUM (BEAKER) (test xnxb=545) 4.5 meq/L 3.5-5.1 Specimen slightly hemolyzed CHLORIDE (BEAKER) (test zenv=834) 104 meq/L 98-107 CO2 (BEAKER) (test fynq=216) 26 meq/L 22-29 BLOOD UREA NITROGEN (BEAKER) (test pfrq=832) 20 mg/dL 7-21 CREATININE (BEAKER) (test lwsi=530) 1.39 mg/dL 0.57-1.25 Specimen slightly hemolyzed GLUCOSE RANDOM (BEAKER) (test htec=634) 124 mg/dL 70-105 CALCIUM (BEAKER) (test vmgc=967) 9.3 mg/dL 8.4-10.2 EGFR (BEAKER) (test lnlq=0369) 55 mL/min/1.73 sq m ESTIMATED GFR IS NOT ACCURATE CREATININE CLEARANCE IN PREDICTING GLOMERULAR FILTRATION RATE. ESTIMATED GFR IS NOT APPLICABLE FOR DIALYSIS PATIENTS. POCT-GLUCOSE [id number] 21:19:00* Test Item Value Reference Range Comments POC-GLUCOSE METER (BEAKER) (test oxzy=0915) 120 mg/dL 70-110 TESTED AT [facility] [address] [address] POCT-GLUCOSE [id number] 18:25:00* Test Item Value Reference Range Comments POC-GLUCOSE METER (BEAKER) (test rsva=7759) 180 mg/dL 70-110 TESTED AT [address] [address] URINALYSIS W/ REFLEX URINE [id number] 15:52:00* Test Item Value Reference Range Comments COLOR (BEAKER) (test tagg=513) Light Yellow CLARITY (BEAKER) (test gpyg=367) Clear SPECIFIC GRAVITY UA (BEAKER) (test tayg=353) 1.019 1.001-1.035 PH UA (BEAKER) (test kqqc=769) 5.5 5.0-8.0 PROTEIN UA (BEAKER) (test mkew=833) 50 mg/dL Negative GLUCOSE UA (BEAKER) (test hzeg=892) >1000 mg/dL Negative KETONES UA (BEAKER) (test urix=551) Negative Negative BILIRUBIN UA (BEAKER) (test zisy=229) Negative Negative BLOOD UA (BEAKER) (test nwmh=703) Negative Negative NITRITE UA (BEAKER) (test ehgn=843) Negative Negative LEUKOCYTE ESTERASE UA (BEAKER) (test dayf=789) Negative Negative UROBILINOGEN UA (BEAKER) (test obou=802) 0.2 mg/dL 0.2-1.0 RBC UA (BEAKER) (test kzbu=224) 0 /HPF WBC UA (BEAKER) (test okef=908) 1 /HPF SOURCE(BEAKER) (test udwj=1739) POCT-GLUCOSE [id number] 13:09:00* Test Item Value Reference Range Comments POC-GLUCOSE METER (BEAKER) (test eose=5244) 131 mg/dL 70-110 TESTED AT [facility] [address] [address] BASIC METABOLIC [id number] 04:53:00* Test Item Value Reference Range Comments SODIUM (BEAKER) (test jfsw=423) 139 meq/L 136-145 POTASSIUM (BEAKER) (test nlcv=734) 3.4 meq/L 3.5-5.1 Specimen slightly hemolyzed CHLORIDE (BEAKER) (test ordd=206) 103 meq/L 98-107 CO2 (BEAKER) (test vnie=870) 22 meq/L 22-29 BLOOD UREA NITROGEN (BEAKER) (test ocup=115) 31 mg/dL 7-21 CREATININE (BEAKER) (test iuyp=284) 1.49 mg/dL 0.57-1.25 Specimen slightly hemolyzed GLUCOSE RANDOM (BEAKER) (test rfoo=566) 111 mg/dL 70-105 CALCIUM (BEAKER) (test tqgj=627) 9.6 mg/dL 8.4-10.2 EGFR (BEAKER) (test fbfo=5263) 51 mL/min/1.73 sq m ESTIMATED GFR IS NOT ACCURATE CREATININE CLEARANCE IN PREDICTING GLOMERULAR FILTRATION RATE. ESTIMATED GFR IS NOT APPLICABLE FOR DIALYSIS PATIENTS. CREATINE KINASE (CK)2018-06-02 04:53:00* Test Item Value Reference Range Comments CREATINE KINASE TOTAL (BEAKER) (test hcej=729) 302 U/L 29-200 CBC W/PLT COUNT & AUTO [id number] 04:31:00* Test Item Value Reference Range Comments WHITE BLOOD CELL COUNT (BEAKER) (test sdcj=872) 6.2 K/ L 3.5-10.5 RED BLOOD CELL COUNT (BEAKER) (test wydg=880) 5.36 M/ L 4.63-6.08 HEMOGLOBIN (BEAKER) (test jpxr=459) 16.0 GM/DL 13.7-17.5 HEMATOCRIT (BEAKER) (test zogd=421) 48.4 % 40.1-51.0 MEAN CORPUSCULAR VOLUME (BEAKER) (test qexr=177) 90.3 fL 79.0-92.2 MEAN CORPUSCULAR HEMOGLOBIN (BEAKER) (test dqvv=756) 29.9 pg 25.7-32.2 MEAN CORPUSCULAR HEMOGLOBIN CONC (BEAKER) (test cjsm=745) 33.1 GM/DL 32.3-36.5 RED CELL DISTRIBUTION WIDTH (BEAKER) (test iznt=397) 15.1 % 11.6-14.4 PLATELET COUNT (BEAKER) (test zfhm=161) 125 K/CU MM 150-450 MEAN PLATELET VOLUME (BEAKER) (test yxty=297) 11.4 fL 9.4-12.4 NUCLEATED RED BLOOD CELLS (BEAKER) (test xmgw=175) 0 /100 WBC 0-0 NEUTROPHILS RELATIVE PERCENT (BEAKER) (test sezc=846) 59 % LYMPHOCYTES RELATIVE PERCENT (BEAKER) (test vjkn=178) 27 % MONOCYTES RELATIVE PERCENT (BEAKER) (test qmxd=129) 11 % EOSINOPHILS RELATIVE PERCENT (BEAKER) (test sivi=267) 3 % BASOPHILS RELATIVE PERCENT (BEAKER) (test rjyb=945) 1 % NEUTROPHILS ABSOLUTE COUNT (BEAKER) (test apzd=896) 3.64 K/ L 1.78-5.38 LYMPHOCYTES ABSOLUTE COUNT (BEAKER) (test fejy=322) 1.64 K/ L 1.32-3.57 MONOCYTES ABSOLUTE COUNT (BEAKER) (test gijt=567) 0.67 K/ L 0.30-0.82 EOSINOPHILS ABSOLUTE COUNT (BEAKER) (test bohg=387) 0.17 K/ L 0.04-0.54 BASOPHILS ABSOLUTE COUNT (BEAKER) (test rkrm=031) 0.03 K/ L 0.01-0.08 IMMATURE GRANULOCYTES-RELATIVE PERCENT (BEAKER) (test zdgq=9947) 1 % 0-1 RAD, LEG, [id number] 01:32:00Reason for exam:->LEG PAINReason for exam:-> FALLFINAL REPORT CLINICAL HISTORY: LEG PAINFALL TECHNIQUE: AP and lateral views of the left tibia and fibula COMPARISON: Plain radiograph the left tibia and fibula dated 04/09/2011. IMPRESSION: The tibia and fibula are intact without evidence of fracture or dislocation. Vascular calcifications. No significant soft tissue abnormality. No ankle joint effusion. Osteopenia. No radiopaque foreign body. Signed: Rosa Maria Chavira MDReport Verified Date/Time: 06/02/2018 01:32:15 Reading Location: [facility] C013T Transitional Reading Room , [id number] 17:05:00FINAL REPORT TECHNIQUE: CT of the abdomen and pelvis WITH intravenous contrast and WITHOUT oral contrast. Dose modulation, iterative reconstruction, and/or weight- based adjustment of the mA/kV was utilized to reduce the radiation dose to as low as reasonably achievable. INDICATION: 47-year-old man with abdominal pain. COMPARISON: Abdomen and pelvis CT 02/19/2018. FINDINGS: LOWER THORAX: Unremarkable. HEPATOBILIARY: No focal hepatic lesions. Gallbladder is unremarkable. No biliary ductal dilatation.SPLEEN: No splenomegaly. Unchanged benign 4 x 1.9 cm cystic structure along the medial aspect of the spleen.PANCRE : No focal masses or ductal dilatation. ADRENALS: No adrenal nodules.KIDNEYS/U RETERS: No hydronephrosis, stones, or solid mass lesions.PELVIC ORGANS/BLADDER: The bladder is underdistended, limiting its evaluation. Prostate and seminal ves icles are grossly unremarkable. PERITONEUM/RETROPERITONEUM: No free air or fluid .LYMPH NODES: No lymphadenopathy.VESSELS: Unchanged perigastric/perisplenic [place] ateral vessels. GI TRACT: No distention or wall thickening. Normal appendix. BON ES AND SOFT TISSUES: Degenerative changes of the visualized spine. Soft tissues are unremarkable. IMPRESSION:No acute abnormalities in the abdomen or pelvis. S igned: Jasmyn Marquis MDReport Verified Date/Time: 03/22/2018 17:05:44 Reading Location: [facility] B1 C013Y CT Body Reading Room ONIN [id number] 15:53:00* Test Item Value Reference Range Comments TROPONIN I (BEAKER) (test qagx=445) 0.01 ng/mL 0.00-0.03 Troponin I (TnI) levels must be interpreted in the context of the presenting sym ptoms and the clinical findings. Elevated TnI levels indicate myocardial damage, but are not specific for ischemic heart disease. Elevated TnI levels are seen in patients with other cardiac conditions (including myocarditis and congestive h eart failure), and slight TnI elevations occur in patients with other conditions , including sepsis, renal failure, acidosis, acute neurological disease, and per sistent tachyarrhythmia.[id number] 15:47:00* Test Item Value Reference Range Comments LIPASE (BEAKER) (test ygqy=066) 20 U/L 8-78 BASIC METABOLIC [id number] 15:47:00* Test Item Value Reference Range Comments SODIUM (BEAKER) (test nsqc=363) 137 meq/L 136-145 POTASSIUM (BEAKER) (test svfj=695) 3.4 meq/L 3.5-5.1 CHLORIDE (BEAKER) (test rmqb=630) 107 meq/L 98-107 CO2 (BEAKER) (test uwut=215) 22 meq/L 22-29 BLOOD UREA NITROGEN (BEAKER) (test lykf=177) 14 mg/dL 7-21 CREATININE (BEAKER) (test wpsw=894) 0.97 mg/dL 0.57-1.25 GLUCOSE RANDOM (BEAKER) (test mcdk=309) 86 mg/dL 70-105 CALCIUM (BEAKER) (test gmfc=493) 9.0 mg/dL 8.4-10.2 EGFR (BEAKER) (test jasv=9227) 83 mL/min/1.73 sq m ESTIMATED GFR IS NOT ACCURATE CREATININE CLEARANCE IN PREDICTING GLOMERULAR FILTRATION RATE. ESTIMATED GFR IS NOT APPLICABLE FOR DIALYSIS PATIENTS. HEPATIC FUNCTION [id number] 15:47:00* Test Item Value Reference Range Comments TOTAL PROTEIN (BEAKER) (test kknc=536) 7.0 gm/dL 6.0-8.3 ALBUMIN (BEAKER) (test liez=3668) 3.8 g/dL 3.5-5.0 BILIRUBIN TOTAL (BEAKER) (test qokg=042) 0.6 mg/dL 0.2-1.2 BILIRUBIN DIRECT (BEAKER) (test eunn=687) 0.2 mg/dL 0.1-0.5 ALKALINE PHOSPHATASE (BEAKER) (test rdck=547) 57 U/L 40-150 AST (SGOT) (BEAKER) (test ugut=003) 21 U/L 5-34 ALT (SGPT) (BEAKER) (test olpa=536) 26 U/L 6-55 CBC W/PLT COUNT & AUTO [id number] 15:30:00* Test Item Value Reference Range Comments WHITE BLOOD CELL COUNT (BEAKER) (test tdnu=159) 5.9 K/ L 3.5-10.5 RED BLOOD CELL COUNT (BEAKER) (test ftwl=542) 5.63 M/ L 4.63-6.08 HEMOGLOBIN (BEAKER) (test nkdk=530) 16.9 GM/DL 13.7-17.5 HEMATOCRIT (BEAKER) (test vpfd=955) 49.8 % 40.1-51.0 MEAN CORPUSCULAR VOLUME (BEAKER) (test kkxl=660) 88.5 fL 79.0-92.2 MEAN CORPUSCULAR HEMOGLOBIN (BEAKER) (test rvzo=774) 30.0 pg 25.7-32.2 MEAN CORPUSCULAR HEMOGLOBIN CONC (BEAKER) (test zxqt=128) 33.9 GM/DL 32.3-36.5 RED CELL DISTRIBUTION WIDTH (BEAKER) (test vcxv=017) 13.3 % 11.6-14.4 PLATELET COUNT (BEAKER) (test wvdp=937) 123 K/CU MM 150-450 MEAN PLATELET VOLUME (BEAKER) (test qgam=660) 11.5 fL 9.4-12.4 NUCLEATED RED BLOOD CELLS (BEAKER) (test jkhv=285) 0 /100 WBC 0-0 NEUTROPHILS RELATIVE PERCENT (BEAKER) (test fnth=751) 67 % LYMPHOCYTES RELATIVE PERCENT (BEAKER) (test biwt=096) 22 % MONOCYTES RELATIVE PERCENT (BEAKER) (test xybq=511) 8 % EOSINOPHILS RELATIVE PERCENT (BEAKER) (test glzh=722) 2 % BASOPHILS RELATIVE PERCENT (BEAKER) (test mdvo=846) 0 % NEUTROPHILS ABSOLUTE COUNT (BEAKER) (test kicx=455) 3.96 K/ L 1.78-5.38 LYMPHOCYTES ABSOLUTE COUNT (BEAKER) (test ozhr=917) 1.31 K/ L 1.32-3.57 MONOCYTES ABSOLUTE COUNT (BEAKER) (test weqk=385) 0.45 K/ L 0.30-0.82 EOSINOPHILS ABSOLUTE COUNT (BEAKER) (test alwa=853) 0.12 K/ L 0.04-0.54 BASOPHILS ABSOLUTE COUNT (BEAKER) (test twli=724) 0.02 K/ L 0.01-0.08 IMMATURE GRANULOCYTES-RELATIVE PERCENT (BEAKER) (test dxmj=1515) 0 % 0-1 OVA AND PARASITE [id number] 07:53:00* Test Item Value Reference Range Comments CONCENTRATE SMEAR - O\\T\\P (BEAKER) (test rfuz=917) No ova or parasites seen No ova or parasites seen TRICHROME SMEAR - O\\T\\P (BEAKER) (test izlz=863) No ova or parasites seen No ova or parasites seen BLOOD [id number] 10:00:00* Test Item Value Reference Range Comments CULTURE (BEAKER) (test zrvy=7004) No growth in 5 days BLOOD [id number] 05:01:00* Test Item Value Reference Range Comments CULTURE (BEAKER) (test dvxh=1754) No growth in 5 days BLOOD [id number] 23:01:00* Test Item Value Reference Range Comments CULTURE (BEAKER) (test rwuw=3444) No growth in 5 days STOOL CULTURE + SHIGA [id number] 17:27:00* Test Item Value Reference Range Comments CULTURE (BEAKER) (test jzsk=6648) No Salmonella, Shigella or Campylobacter isolated Unable to test for Shiga Toxin 1 due to insufficient growth of specimen.Unable t o test for Shiga Toxin 2 due to insufficient growth of specimen.[facility] if clinically indicated.Insufficient growth in GN broth02/25/20183:01 Sabiha Pugh PATH [id number] 19:19:00* Test Item Value Reference Range Comments PATHOGEN EXAM CHARGED (BEAKER) (test pyuk=6226) Done POCT-GLUCOSE [id number] 09:53:00* Test Item Value Reference Range Comments POC-GLUCOSE METER (BEAKER) (test wcpy=8651) 138 mg/dL 70-110 TESTED AT [facility] [address] [address] POCT-GLUCOSE [id number] 21:06:00* Test Item Value Reference Range Comments POC-GLUCOSE METER (BEAKER) (test cqkp=9840) 155 mg/dL 70-110 TESTED AT [facility] [address] [address] POCT-GLUCOSE [id number] 18:03:00* Test Item Value Reference Range Comments POC-GLUCOSE METER (BEAKER) (test hdkk=7933) 158 mg/dL 70-110 TESTED AT [address] [address] C. DIFFICILE GDH [id number] 16:26:00* Test Item Value Reference Range Comments CDT TOXIN (test qekz=[id number]) Negative Negative CDT GDH ANTIGEN (test fyun=[id number]) Negative Negative No indication of Clostridium difficile infection and no colonization. Discontinue enteric isolation and therapy. Testing performed by [employer] Rapid Cassette Assay. For GDH, published sensitivity of the assay is 98.7% compared to cytotoxicity testing. For Toxin AB, published sensitivity is 87.8% and specificity 99.4% compared to cytotoxicity testing.Ve rification of kit performance was done by the [facility] Microbiology Lab prior to cl inical use.POCT-GLUCOSE [id number] 13:00:00* Test Item Value Reference Range Comments POC-GLUCOSE METER (BEAKER) (test wbwx=3193) 197 mg/dL 70-110 TESTED AT [address] [address] POCT-GLUCOSE [id number] 09:45:00* Test Item Value Reference Range Comments POC-GLUCOSE METER (BEAKER) (test zxrh=3700) 298 mg/dL 70-110 TESTED AT [address] [address] POCT-GLUCOSE [id number] 19:26:00* Test Item Value Reference Range Comments POC-GLUCOSE METER (BEAKER) (test ktrj=0902) 176 mg/dL 70-110 TESTED AT [address] [address] POCT-GLUCOSE [id number] 12:06:00* Test Item Value Reference Range Comments POC-GLUCOSE METER (BEAKER) (test nccv=4783) 183 mg/dL 70-110 TESTED AT [address] [address] POCT-GLUCOSE [id number] 08:02:00* Test Item Value Reference Range Comments POC-GLUCOSE METER (BEAKER) (test gzqf=8314) 202 mg/dL 70-110 TESTED AT [address] [address] T4, [id number] 07:51:00* Test Item Value Reference Range Comments FREE T4 (BEAKER) (test cpdg=979) 0.78 ng/dL 0.70-1.48 TSH/FREE T4 IF [id number] 07:02:00* Test Item Value Reference Range Comments THYROID STIMULATING HORMONE (BEAKER) (test pkyk=372) 6.66 uIU/mL 0.35-4.94 [id number] 06:59:00* Test Item Value Reference Range Comments MAGNESIUM (BEAKER) (test nevh=849) 2.1 mg/dL 1.6-2.6 BASIC METABOLIC [id number] 06:59:00* Test Item Value Reference Range Comments SODIUM (BEAKER) (test yppx=631) 136 meq/L 136-145 POTASSIUM (BEAKER) (test yvvp=283) 4.0 meq/L 3.5-5.1 CHLORIDE (BEAKER) (test yqlh=487) 106 meq/L 98-107 CO2 (BEAKER) (test oyyf=831) 24 meq/L 22-29 BLOOD UREA NITROGEN (BEAKER) (test vtll=077) 13 mg/dL 7-21 CREATININE (BEAKER) (test crgp=252) 0.96 mg/dL 0.57-1.25 GLUCOSE RANDOM (BEAKER) (test vvwu=708) 202 mg/dL 70-105 CALCIUM (BEAKER) (test tsma=892) 8.6 mg/dL 8.4-10.2 EGFR (BEAKER) (test esgo=6141) 84 mL/min/1.73 sq m ESTIMATED GFR IS NOT ACCURATE CREATININE CLEARANCE IN PREDICTING GLOMERULAR FILTRATION RATE. ESTIMATED GFR IS NOT APPLICABLE FOR DIALYSIS PATIENTS. POCT-GLUCOSE [id number] 23:38:00* Test Item Value Reference Range Comments POC-GLUCOSE METER (BEAKER) (test uoya=5342) 205 mg/dL 70-110 TESTED AT [facility] [address] [address] POCT-GLUCOSE [id number] 17:57:00* Test Item Value Reference Range Comments POC-GLUCOSE METER (BEAKER) (test dvoa=7754) 185 mg/dL 70-110 TESTED AT [place] [id number] [facility] [address] C-REACTIVE [id number] 16:30:00* Test Item Value Reference Range Comments C-REACTIVE PROTEIN (BEAKER) (test ylij=238) 0.47 mg/dL 0.00-0.50 POCT-GLUCOSE [id number] 12:23:00* Test Item Value Reference Range Comments POC-GLUCOSE METER (BEAKER) (test zmgx=4206) 167 mg/dL 70-110 TESTED AT [facility] [address] [address] HEPATOBILIARY [id number] 11:28:00FINAL REPORT PROCEDURE: HEPATOBILIARY SCAN CPT CODE: 86731 INDICATION: Right upper quadrant pain cholecystitis suspected, equivocal ultrasound PROTOCOL: 5.3 mCi of Tc-99m mebrofenin was injected intravenously. Images of the upper abdomen were obtained for approximately 60 minutes after tracer injection. FINDINGS: Initial tracer uptake into the liver is physiological. Subsequent tracer clearance from the liver proceeds normally. There is good visualization of the extrahepatic biliary duct and the gal lbladder, and the tracer appears appropriately in the small bowel. IMPRESSION: Normal hepatobiliary scan. Signed: Archie Colungaort Verified Date/Thierno e: 02/22/2018 11:28:21 Reading Location: [address] ALYSIS W/ [id number] 10:47:00* Test Item Value Reference Range Comments COLOR (BEAKER) (test ceni=314) Yellow CLARITY (BEAKER) (test enco=906) Clear SPECIFIC GRAVITY UA (BEAKER) (test xojp=711) 1.020 1.001-1.035 PH UA (BEAKER) (test ixsj=915) 6.0 5.0-8.0 PROTEIN UA (BEAKER) (test bxkn=199) 300 mg/dL Negative GLUCOSE UA (BEAKER) (test dtlv=122) 1000 mg/dL Negative KETONES UA (BEAKER) (test gdjy=987) Negative Negative BILIRUBIN UA (BEAKER) (test xwkd=493) Negative Negative BLOOD UA (BEAKER) (test wquc=349) Negative Negative NITRITE UA (BEAKER) (test davr=879) Negative Negative LEUKOCYTE ESTERASE UA (BEAKER) (test asjj=043) Negative Negative UROBILINOGEN UA (BEAKER) (test xwkf=838) 0.2 mg/dL 0.2-1.0 RBC UA (BEAKER) (test fsag=615) 2 /HPF WBC UA (BEAKER) (test gyjg=254) 1 /HPF BACTERIA (BEAKER) (test pvyi=589) Few MUCUS (BEAKER) (test tzdt=9169) Occasional SOURCE(BEAKER) (test apbk=2653) Urine, Voided [id number] 06:25:00* Test Item Value Reference Range Comments MAGNESIUM (BEAKER) (test upxv=916) 1.8 mg/dL 1.6-2.6 Specimen slightly hemolyzed BASIC METABOLIC [id number] 06:25:00* Test Item Value Reference Range Comments SODIUM (BEAKER) (test wngl=227) 137 meq/L 136-145 POTASSIUM (BEAKER) (test uozu=210) 3.4 meq/L 3.5-5.1 Specimen slightly hemolyzed CHLORIDE (BEAKER) (test muwm=650) 107 meq/L 98-107 CO2 (BEAKER) (test ggbs=078) 21 meq/L 22-29 BLOOD UREA NITROGEN (BEAKER) (test jfke=676) 15 mg/dL 7-21 CREATININE (BEAKER) (test hkac=272) 0.86 mg/dL 0.57-1.25 Specimen slightly hemolyzed GLUCOSE RANDOM (BEAKER) (test pmab=643) 177 mg/dL 70-105 CALCIUM (BEAKER) (test xqdk=565) 8.6 mg/dL 8.4-10.2 EGFR (BEAKER) (test mkiv=9005) 95 mL/min/1.73 sq m ESTIMATED GFR IS NOT ACCURATE CREATININE CLEARANCE IN PREDICTING GLOMERULAR FILTRATION RATE. ESTIMATED GFR IS NOT APPLICABLE FOR DIALYSIS PATIENTS. HEPATIC FUNCTION [id number] 06:25:00* Test Item Value Reference Range Comments TOTAL PROTEIN (BEAKER) (test unlu=414) 6.5 gm/dL 6.0-8.3 Specimen slightly hemolyzed ALBUMIN (BEAKER) (test nckn=7439) 3.5 g/dL 3.5-5.0 Specimen slightly hemolyzed BILIRUBIN TOTAL (BEAKER) (test vfyr=236) 0.6 mg/dL 0.2-1.2 Specimen slightly hemolyzed BILIRUBIN DIRECT (BEAKER) (test ichn=546) 0.2 mg/dL 0.1-0.5 Specimen slightly hemolyzed ALKALINE PHOSPHATASE (BEAKER) (test viay=211) 61 U/L 40-150 AST (SGOT) (BEAKER) (test egee=252) 22 U/L 5-34 Specimen slightly hemolyzed ALT (SGPT) (BEAKER) (test rusn=365) 28 U/L 6-55 Specimen slightly hemolyzed [id number] 06:25:00* Test Item Value Reference Range Comments AMYLASE (BEAKER) (test ppuv=166) 64 U/L 25-125 Specimen slightly hemolyzed [id number] 06:25:00* Test Item Value Reference Range Comments LIPASE (BEAKER) (test xfov=816) 10 U/L 8-78 CBC W/PLT COUNT & AUTO [id number] 05:29:00* Test Item Value Reference Range Comments WHITE BLOOD CELL COUNT (BEAKER) (test jjhz=099) 4.7 K/ L 3.5-10.5 RED BLOOD CELL COUNT (BEAKER) (test yzov=756) 5.31 M/ L 4.63-6.08 HEMOGLOBIN (BEAKER) (test mhys=496) 15.9 GM/DL 13.7-17.5 HEMATOCRIT (BEAKER) (test osea=643) 47.9 % 40.1-51.0 MEAN CORPUSCULAR VOLUME (BEAKER) (test ozbo=282) 90.2 fL 79.0-92.2 MEAN CORPUSCULAR HEMOGLOBIN (BEAKER) (test poyy=664) 29.9 pg 25.7-32.2 MEAN CORPUSCULAR HEMOGLOBIN CONC (BEAKER) (test ttvf=496) 33.2 GM/DL 32.3-36.5 RED CELL DISTRIBUTION WIDTH (BEAKER) (test ehhr=691) 14.2 % 11.6-14.4 PLATELET COUNT (BEAKER) (test jaxk=357) 129 K/CU MM 150-450 MEAN PLATELET VOLUME (BEAKER) (test vkjc=626) 11.3 fL 9.4-12.4 NUCLEATED RED BLOOD CELLS (BEAKER) (test dfrf=284) 0 /100 WBC 0-0 NEUTROPHILS RELATIVE PERCENT (BEAKER) (test vnwt=427) 60 % LYMPHOCYTES RELATIVE PERCENT (BEAKER) (test lzys=877) 27 % MONOCYTES RELATIVE PERCENT (BEAKER) (test xnww=309) 9 % EOSINOPHILS RELATIVE PERCENT (BEAKER) (test lbka=776) 3 % BASOPHILS RELATIVE PERCENT (BEAKER) (test hfjw=054) 1 % NEUTROPHILS ABSOLUTE COUNT (BEAKER) (test pdka=530) 2.82 K/ L 1.78-5.38 LYMPHOCYTES ABSOLUTE COUNT (BEAKER) (test slbt=617) 1.28 K/ L 1.32-3.57 MONOCYTES ABSOLUTE COUNT (BEAKER) (test elgw=623) 0.44 K/ L 0.30-0.82 EOSINOPHILS ABSOLUTE COUNT (BEAKER) (test jwpu=682) 0.14 K/ L 0.04-0.54 BASOPHILS ABSOLUTE COUNT (BEAKER) (test ntyx=121) 0.03 K/ L 0.01-0.08 IMMATURE GRANULOCYTES-RELATIVE PERCENT (BEAKER) (test nbpq=9869) 1 % 0-1 POCT-GLUCOSE [id number] 01:35:00* Test Item Value Reference Range Comments POC-GLUCOSE METER (BEAKER) (test lqlq=7329) 154 mg/dL 70-110 TESTED AT [facility] [address] [address] GAMMA GLUTAMYL TRANSFERASE (GGT)2018-02-22 00:59:00* Test Item Value Reference Range Comments GAMMA GLUTAMYL TRANSFERASE (BEAKER) (test ltxl=443) 23 U/L 9-64 KETONE, [id number] 00:42:00* Test Item Value Reference Range Comments KETONES, BLOOD (BEAKER) (test qcon=7280) 0.1 mmol/L <0.4 U/S, ABDOMINAL, [id number] 21:23:00Abdomen limited area? Add comment if clarification is needed.->Right upper quadrantReason for exam:->ABDOMINAL PAIN FINAL REPORT Right Upper Quadrant Ultrasound Clinical Di agnosis: Abdominal pain Comparison: Multiple prior exams Technique: Multiple tra nsaxial and longitudinal images were obtained through the right upper quadrant w [facility] real time ultrasonography. Five mHz transducer was utilized. 48 images wer e submitted for interpretation. Report:Liver: The liver measures 18.8 cm in the right midaxillary line. There are no focal masses. The echogenicity is increas ed.Gallbladder: The gallbladder was not visualized on this exam.Biliary tree: Th e filipe hepatis was not adequately seen.Portal vein: The portal vein was not kem quately visualized. Ascites: NegativePleural Effusion: NegativeRight kidney: The right kidney measures 11.9 cm. in length without evidence of hydronephrosis.Aor ta and IVC: Midline abdominal structures and not well visualized. Not adequatel y visualized secondary to overlying bowel gas and the patient's body habitus. Im pression:Hepatomegaly with fatty infiltration.Inadequate visualization of the mi dline abdominal structures and filipe hepatis secondary to overlying bowel gas in creased echogenicity through the liver and the patient's body habitus Signed: Liana Carlos MDReport Verified Date/Time: 02/21/2018 21:23:48 Reading Location: [place] [address] [id number] Consult Reading Room C METABOLIC [id number] 20:12:00* Test Item Value Reference Range Comments SODIUM (BEAKER) (test suhf=334) 138 meq/L 136-145 POTASSIUM (BEAKER) (test qydp=331) 3.7 meq/L 3.5-5.1 Specimen slightly hemolyzed CHLORIDE (BEAKER) (test ktmk=002) 107 meq/L 98-107 CO2 (BEAKER) (test jpjt=608) 22 meq/L 22-29 BLOOD UREA NITROGEN (BEAKER) (test mkay=125) 18 mg/dL 7-21 CREATININE (BEAKER) (test cflu=778) 1.11 mg/dL 0.57-1.25 Specimen slightly hemolyzed GLUCOSE RANDOM (BEAKER) (test uypi=655) 189 mg/dL 70-105 CALCIUM (BEAKER) (test tyxd=577) 9.3 mg/dL 8.4-10.2 EGFR (BEAKER) (test wxzu=6834) 71 mL/min/1.73 sq m ESTIMATED GFR IS NOT ACCURATE CREATININE CLEARANCE IN PREDICTING GLOMERULAR FILTRATION RATE. ESTIMATED GFR IS NOT APPLICABLE FOR DIALYSIS PATIENTS. ALKALINE [id number] 18:52:00* Test Item Value Reference Range Comments ALKALINE PHOSPHATASE (BEAKER) (test hisr=151) 79 U/L 40-150 [id number] 18:52:00* Test Item Value Reference Range Comments LIPASE (BEAKER) (test ulcp=837) 18 U/L 8-78 ALT (SGPT)2018-02-21 18:52:00* Test Item Value Reference Range Comments ALT (SGPT) (BEAKER) (test nesr=964) 34 U/L 6-55 Specimen slightly hemolyzed AST (SGOT)2018-02-21 18:52:00* Test Item Value Reference Range Comments AST (SGOT) (BEAKER) (test hzhw=682) 24 U/L 5-34 Specimen slightly hemolyzed BILIRUBIN, ADULT [id number] 18:52:00* Test Item Value Reference Range Comments BILIRUBIN TOTAL (BEAKER) (test jkxu=883) 0.5 mg/dL 0.2-1.2 Specimen slightly hemolyzed RAD, CHEST, 1 VIEW, NON [id number] 18:48:00Reason for exam:->CHEST PAINShould this be performed at the bedside?->YesFINAL REPORT Chest x-ray Clinical History: CHEST PAIN Comparison: November 04, 2017 Views: One AP lordotic Chest x-ray:The cardiac and mediastinal silhouettes are prominent. There is no evidence of a pneumothorax. There is no evidence of a pleural effusion. There is no evidence of overt cardiac failure. The visible regional skeleton is intact. There is no evidence of a focal parenchymal opacity. Impression: No active cardiopulmonary disease and no interval change Signed: Liana Jauregui Verified Date/Time: 02/21/2018 18:48:31 Reading Location: [facility] C013W Consult Reading Room W/PLT COUNT & AUTO DIFFERENTIAL 2018-02-21 18:39:00* Test Item Value Reference Range Comments WHITE BLOOD CELL COUNT (BEAKER) (test ymwu=265) 5.4 K/ L 3.5-10.5 RED BLOOD CELL COUNT (BEAKER) (test gafl=643) 5.44 M/ L 4.63-6.08 HEMOGLOBIN (BEAKER) (test umtl=667) 16.3 GM/DL 13.7-17.5 HEMATOCRIT (BEAKER) (test baqs=260) 49.2 % 40.1-51.0 MEAN CORPUSCULAR VOLUME (BEAKER) (test erww=063) 90.4 fL 79.0-92.2 MEAN CORPUSCULAR HEMOGLOBIN (BEAKER) (test uonw=064) 30.0 pg 25.7-32.2 MEAN CORPUSCULAR HEMOGLOBIN CONC (BEAKER) (test khex=442) 33.1 GM/DL 32.3-36.5 RED CELL DISTRIBUTION WIDTH (BEAKER) (test ctzg=699) 14.0 % 11.6-14.4 PLATELET COUNT (BEAKER) (test aysp=176) 139 K/CU MM 150-450 MEAN PLATELET VOLUME (BEAKER) (test wdsa=344) 11.2 fL 9.4-12.4 NUCLEATED RED BLOOD CELLS (BEAKER) (test bxuz=497) 0 /100 WBC 0-0 NEUTROPHILS RELATIVE PERCENT (BEAKER) (test kkwo=794) 61 % LYMPHOCYTES RELATIVE PERCENT (BEAKER) (test koiq=885) 27 % MONOCYTES RELATIVE PERCENT (BEAKER) (test vssu=561) 8 % EOSINOPHILS RELATIVE PERCENT (BEAKER) (test liyb=472) 3 % BASOPHILS RELATIVE PERCENT (BEAKER) (test dmmy=021) 1 % NEUTROPHILS ABSOLUTE COUNT (BEAKER) (test egxq=473) 3.26 K/ L 1.78-5.38 LYMPHOCYTES ABSOLUTE COUNT (BEAKER) (test ldyw=014) 1.44 K/ L 1.32-3.57 MONOCYTES ABSOLUTE COUNT (BEAKER) (test wzeg=070) 0.45 K/ L 0.30-0.82 EOSINOPHILS ABSOLUTE COUNT (BEAKER) (test aywa=368) 0.14 K/ L 0.04-0.54 BASOPHILS ABSOLUTE COUNT (BEAKER) (test whgj=698) 0.04 K/ L 0.01-0.08 IMMATURE GRANULOCYTES-RELATIVE PERCENT (BEAKER) (test ohfu=3966) 1 % 0-1 POCT-LACTIC ACID, [id number] 18:34:00* Test Item Value Reference Range Comments POC-LACTIC ACID, VENOUS (BEAKER) (test jgre=5670) 1.4 mmol/L 0.9-1.7 TESTED AT [address] [address] POCT-GLUCOSE [id number] 04:18:00* Test Item Value Reference Range Comments POC-GLUCOSE METER (BEAKER) (test oxzh=9472) 254 mg/dL 70-110 TESTED AT [address] [address] [address], [id number] 01:04:00Reason for exam:->abdominal painFINAL REPORT EXAMINATION: CT SCAN OF THE ABDOMEN AND PELVIS CLINICAL HISTORY:Acute severe abdominal pain. Elevated lipase COMPARISON EXAM: Chest CT 11/04/2017, abdominal CT 06/29/2017 TECHNIQUE: Following the administration of IV contrast, axial tomographic images were acquired through the abdomen and pelvis. The exam was performed according to our departmental dose optimization program which includes automated exposure control, adjustment of the mA and/or kV according to patient's size and/or use of iterative reconstructive technique. FINDINGS: The heart is borderline enlarged. No evidence of a pericardial or pleural effusion. Minimal atelectasis or scarring is noted at the lung bases. The liver demonstrates relatively homogeneous contrast-enhancement. The gallblad lisa and bile ducts are decompressed. The head of the pancreas is mildly heterog eneous, similar to previous. No definite evidence of new peripancreatic inflamma tion or organized fluid collection/pseudocyst. The pancreatic duct is decompress ed. The spleen is enlarged as before measuring 14 cm. There is a small stable 2. 5 cm exophytic cystic focus which extends off the dorsal aspect of the spleen. A s before, there are also multiple varices in the left upper abdomen which are mo st conspicuous along the splenic hilum and near the stomach. 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 The adrenal glands are normal in size and shape. No evidence of renal obstructi on, nephrolithiasis or perinephric edema. The ureters and bladder are decompress ed. The stomach is grossly unremarkable. The loops of small bowel are normal in caliber. There are no findings to suggest acute appendicitis. Segments of the c olon demonstrate mild wall thickening but are relatively decompressed. No signif icant mesenteric inflammatory changes along the colon. There is mild dilatation of the infrarenal abdominal aorta measuring 2.9 cm, stable. No evidence of aorti c rupture, dissection or penetrating ulcer. Scattered calcific atherosclerotic p laques are noted involving the aorta, renal, mesenteric and iliac arteries. Alth ough contrast is noted within the portal venous system, via splenic vein is not well-visualized and may be chronically thrombosed as detailed above. Contrast al so opacifies the mesenteric arteries, superior mesenteric vein, iliac arteries a nd visualized femoral arteries. Evaluation of the IVC, iliac veins and visualize d femoral veins is limited by the early timing of the contrast bolus. No signifi cant prostate enlargement. The bladder is decompressed. No evidence of intra-abd ominal or pelvic free fluid. There are numerous small nonspecific inguinal, mese nteric and retroperitoneal-periaortic lymph nodes without evidence of pathologic enlargement. Several chronic mild wedge compression deformities are again noted in the lower thoracic spine. No evidence of an acute osseous abnormality. IMPRE SSION: Mild heterogeneity of the pancreatic head of uncertain etiology or signi ficance. Correlation with patient's pancreatic function studies recommended. 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 Imaging surveilla nce recommended every 3 years. Stable splenomegaly, left upper quadrant varices and small splenic exophytic cystic splenic nodule. Mild colonic wall thickening. Incomplete distention favored. An early-mild colitis cannot be excluded. Results discussed with Dr. Lewis. Signed: Titus Goss MDReport Verified Date/Time: 04/23/2017 01:04:07 Reading Location: [address] Reading Room E lectronically signed by: TITUS GOSS M.D. on 02/20/2018 01:04 AM HEPATIC FUNCTION [id number] 23:01:00* Test Item Value Reference Range Comments TOTAL PROTEIN (BEAKER) (test ovpm=975) 8.3 gm/dL 6.0-8.3 Specimen moderately hemolyzed ALBUMIN (BEAKER) (test unvc=4447) 4.0 g/dL 3.5-5.0 Specimen moderately hemolyzed BILIRUBIN TOTAL (BEAKER) (test scve=723) 0.4 mg/dL 0.2-1.2 Specimen moderately hemolyzed BILIRUBIN DIRECT (BEAKER) (test gohx=578) < mg/dL 0.1-0.5 Specimen moderately hemolyzed ALKALINE PHOSPHATASE (BEAKER) (test xvzo=920) 94 U/L 40-150 AST (SGOT) (BEAKER) (test pvgt=600) 28 U/L 5-34 Specimen moderately hemolyzed ALT (SGPT) (BEAKER) (test glny=146) 29 U/L 6-55 Specimen moderately hemolyzed Specimen markedly [id number] 22:58:00* Test Item Value Reference Range Comments LIPASE (BEAKER) (test ndgy=996) 38 U/L 8-78 BASIC METABOLIC [id number] 22:58:00* Test Item Value Reference Range Comments SODIUM (BEAKER) (test rfna=969) 133 meq/L 136-145 POTASSIUM (BEAKER) (test iueb=280) 3.8 meq/L 3.5-5.1 Specimen moderately hemolyzed CHLORIDE (BEAKER) (test mtzb=391) 103 meq/L 98-107 CO2 (BEAKER) (test qxnv=955) 15 meq/L 22-29 BLOOD UREA NITROGEN (BEAKER) (test xvtc=376) 21 mg/dL 7-21 CREATININE (BEAKER) (test mqoo=524) 1.19 mg/dL 0.57-1.25 Specimen moderately hemolyzed GLUCOSE RANDOM (BEAKER) (test hmqm=721) 336 mg/dL 70-105 CALCIUM (BEAKER) (test snal=447) 9.5 mg/dL 8.4-10.2 EGFR (BEAKER) (test zekj=4320) 66 mL/min/1.73 sq m ESTIMATED GFR IS NOT ACCURATE CREATININE CLEARANCE IN PREDICTING GLOMERULAR FILTRATION RATE. ESTIMATED GFR IS NOT APPLICABLE FOR DIALYSIS PATIENTS. CBC W/PLT COUNT & AUTO [id number] 22:57:00* Test Item Value Reference Range Comments WHITE BLOOD CELL COUNT (BEAKER) (test ejdj=862) 5.0 K/ L 3.5-10.5 RED BLOOD CELL COUNT (BEAKER) (test wvwe=340) 5.07 M/ L 4.63-6.08 HEMOGLOBIN (BEAKER) (test wmqf=491) 15.4 GM/DL 13.7-17.5 HEMATOCRIT (BEAKER) (test rqrx=234) 46.2 % 40.1-51.0 MEAN CORPUSCULAR VOLUME (BEAKER) (test zqwh=866) 91.1 fL 79.0-92.2 MEAN CORPUSCULAR HEMOGLOBIN (BEAKER) (test xpmq=569) 30.4 pg 25.7-32.2 MEAN CORPUSCULAR HEMOGLOBIN CONC (BEAKER) (test oeeu=571) 33.3 GM/DL 32.3-36.5 RED CELL DISTRIBUTION WIDTH (BEAKER) (test tgic=869) 14.0 % 11.6-14.4 PLATELET COUNT (BEAKER) (test hlfc=109) 131 K/CU MM 150-450 MEAN PLATELET VOLUME (BEAKER) (test odnt=471) 11.7 fL 9.4-12.4 NUCLEATED RED BLOOD CELLS (BEAKER) (test ybab=065) 0 /100 WBC 0-0 NEUTROPHILS RELATIVE PERCENT (BEAKER) (test kyko=862) 57 % LYMPHOCYTES RELATIVE PERCENT (BEAKER) (test qbqc=133) 29 % MONOCYTES RELATIVE PERCENT (BEAKER) (test ohbj=870) 10 % EOSINOPHILS RELATIVE PERCENT (BEAKER) (test yxab=921) 2 % BASOPHILS RELATIVE PERCENT (BEAKER) (test dcvj=151) 1 % NEUTROPHILS ABSOLUTE COUNT (BEAKER) (test hjzk=017) 2.85 K/ L 1.78-5.38 LYMPHOCYTES ABSOLUTE COUNT (BEAKER) (test zpmv=281) 1.44 K/ L 1.32-3.57 MONOCYTES ABSOLUTE COUNT (BEAKER) (test tsrn=316) 0.50 K/ L 0.30-0.82 EOSINOPHILS ABSOLUTE COUNT (BEAKER) (test yjrf=031) 0.11 K/ L 0.04-0.54 BASOPHILS ABSOLUTE COUNT (BEAKER) (test izkd=936) 0.03 K/ L 0.01-0.08 IMMATURE GRANULOCYTES-RELATIVE PERCENT (BEAKER) (test ecem=2475) 1 % 0-1 KETONE, [id number] 22:14:00* Test Item Value Reference Range Comments KETONES, BLOOD (BEAKER) (test ewgv=7885) 0.1 mmol/L <0.4 CTA [id number] 17:31:00 [place] [address] Patient Name: DC BARNHART MR #: [id number] : 1970 Age/Sex: 47/M Req #: [id number] [facility] Physician: KAREN MCGOWAN MD Ordered by: KAREN MCGOWAN MD Report #: [id number] Location: [facility] Room/Bed: [place] [address] Procedure: [id number] CT /CTA CHEST Exam Date: 02/11/18 Exam Time: 1430 REPORT STATUS: Signed EXAMINATION: CT of the chest with contrast, PE protocol. TECHNIQUE: Spiral CT images of t he chest were performed from the lung apices through the level of the adrenal glands after the IV administration of 150 cc of Isovue 370. Thin section brooke nstructions were obtained with special concentration on the pulmonary arteries . Coronal and sagittal reformatted images were performed. COMPARISON: < none> CLINICAL HISTORY:Chest pain, hypertension DISCUSSION: Limited exam due to suboptimal contrast bolus timing. Lungs: No filling defects are identified in the main, right or left pulmonary arteries to their first order branches. Segmental and subsegmental branches cannot be evaluated. Linear opacity in the left upper lobe (3, image 45), likely representing subsegmental atelectasis or scarring. No consolidation, nodules or masses. Airways are clear, without endobronchial lesions. Pleura: <There is no evidence of pleural effusion or pneumothorax.> Heart and mediastinum: Thyroid is unremarkable. Heart size is normal. No pericardial effusion. Extensive atherosclerotic calcification of the coronary arteries. Aorta is nonaneurysmal. Main pulmonary artery is enlarged, measuring 3.8 cm. Lymph nodes: No mediastinal, hilar or axillary adenopathy. Abdomen: The visualized portions of the abdomen show unremarkable pancreas, left kidney and adrenal glands. Diffuse hepatic steatosis. 2.4 cm partially exophytic hypodense lesion in the posterior spleen (series 2, image 108), which may represent a cyst or less likely a hemangioma. Bones and soft tissues: No aggressive lytic lesions. Degenerative disc changes in the thoracic spine. IMPRESSION: 1. Exam is limited by suboptimal contrast bolus timing. Se gmental and subsegmental branches cannot be evaluated. 2. No filling defe cts identified in the main, right or left pulmonary arteries to the first orde r branches. 3. No consolidation, nodules or masses. 4. Main pulmona ry artery is enlarged, suggesting pulmonary hypertension. 5. Diffuse hepati c steatosis. Signed by: Dr. Omero Woodall M.D. on 02/11/2018 5:39 PM Dictated By: OMERO WOODALL MD 38 Transcribed By: SOSA on 02/11/181738 COPY TO: KAREN MCGOWAN MD CTA [id number] 17:31:00 [place] [address] Patient Name: DC BARNHART MR #: [id number] : 1970 Age/Sex: 47/M Req #: [id number] Adm Physician: KAREN MCGOWAN MD Ordered by: KAREN MCGOWAN MD Report #: [id number] Location: [facility] Room/Bed: [place] [address] Procedure: [id number] CT /CTA CHEST Exam Date: 02/11/18 Exam Time: 1233 REPORT STATUS: Signed EXAMINATION: CT of the chest with contrast, PE protocol. TECHNIQUE: Spiral CT images of t chest were performed from the lung apices through the level of the adrenal glands after the IV administration of 150 cc of Isovue 370. Thin section brooke nstructions were obtained with special concentration on the pulmonary arteries . Coronal and sagittal reformatted images were performed. COMPARISON: < none> CLINICAL HISTORY:Chest pain, hypertension DISCUSSION: Limited exam due to suboptimal contrast bolus timing. Lungs: No filling defects are identified in the main, right or left pulmonary arteries to their first order branches. Segmental and subsegmental branches cannot be evaluated. Linear opacity in the left upper lobe (3, image 45), likely representing subsegmental atelectasis or scarring. No consolidation, nodules or masses. Airways are clear, without endobronchial lesions. Pleura: <There is no evidence of pleural effusion or pneumothorax.> Heart and mediastinum: Thyroid is unremarkable. Heart size is normal. No pericardial effusion. Extensive atherosclerotic calcification of the coronary arteries. Aorta is nonaneurysmal. Main pulmonary artery is enlarged, measuring 3.8 cm. Lymph nodes: No mediastinal, hilar or axillary adenopathy. Abdomen: The visualized portions of the abdomen show unremarkable pancreas, left kidney and adrenal glands. Diffuse hepatic steatosis. 2.4 cm partially exophytic hypodense lesion in the posterior spleen (series 2, image 108), which may represent a cyst or less likely a hemangioma. Bones and soft tissues: No aggressive lytic lesions. Degenerative disc changes in the thoracic spine. IMPRESSION: 1. Exam is limited by suboptimal contrast bolus timing. Se gmental and subsegmental branches cannot be evaluated. 2. No filling defe cts identified in the main, right or left pulmonary arteries to the first orde r branches. 3. No consolidation, nodules or masses. 4. Main pulmona ry artery is enlarged, suggesting pulmonary hypertension. 5. Diffuse hepati c steatosis. Signed by: Dr. Omero Woodall M.D. on 02/11/2018 5:39 PM Dictated By: OMERO WOODALL MD 38 Transcribed By: SOSA on 02/11/181738 COPY TO: KAREN MCGOWAN MD CXR 2 VIEW - [id number] 15:33:00 [place] [address] Patient Name: DC BARNHART MR #: [id number] : 1970 Age/Sex: 47/M Req #: [id number] Adm Physician: Ordered by: NAKIA ALEJANDRO MD Report #: [id number] Location: [facility] Room/Bed: Procedure: [id number] HO PD/CXR 2 VIEW - HOPD Exam Date: 02/10/18 Exam Time: 1516 REPORT STATUS: Signed EXAM: CXR 2 VIEW - HOPD, PA and lateral DATE: 02/10/2018 Time stamp on exam: 3:08 PM INDICATION: Chest pain with shortness of breath COMPARISON: 01/29/2016 FINDINGS: LINES/TUBES: None LUNGS: Mild pulmonary vascular congestion. PLEURA: No effusions or pneumothorax. HEART AND MEDIASTINUM: Normal size and contour. Tortuous thoracic aorta. BONES AND SOFT TISSUES: Degenerative spurring of the spine. IMPRESSION: Mild pulmonary vascular congestion. Signed by: Dr. Adrienne Huston DO on 02/10/2018 3:36 PM Dictated By: ADRIENNE HUSTON DO 1536 COPY TO: DALY ALEJANDRO MD HEPATIC FUNCTION [id number] 15:12:00* Test Item Value Reference Range Comments TOTAL PROTEIN (BEAKER) (test vrmr=455) 9.0 gm/dL 6.0-8.3 Specimen markedly hemolyzed ALBUMIN (BEAKER) (test odiz=9156) 4.0 g/dL 3.5-5.0 Specimen markedly hemolyzed BILIRUBIN TOTAL (BEAKER) (test ejqb=848) 0.5 mg/dL 0.2-1.2 Specimen markedly hemolyzed BILIRUBIN DIRECT (BEAKER) (test atqc=873) < mg/dL 0.1-0.5 Specimen markedly hemolyzed ALKALINE PHOSPHATASE (BEAKER) (test zjqr=890) 96 U/L 40-150 AST (SGOT) (BEAKER) (test nslq=546) 38 U/L 5-34 Specimen markedly hemolyzed ALT (SGPT) (BEAKER) (test obpe=807) 25 U/L 6-55 Specimen markedly hemolyzed Specimen markedly [id number] 15:07:00* Test Item Value Reference Range Comments LIPASE (BEAKER) (test izhe=696) 46 U/L 8-78 TROPONIN [id number] 13:43:00* Test Item Value Reference Range Comments TROPONIN I (BEAKER) (test yafc=142) < ng/mL 0.00-0.03 [id number] 13:38:00* Test Item Value Reference Range Comments MAGNESIUM (BEAKER) (test vvet=422) 3.5 mg/dL 1.6-2.6 Specimen markedly hemolyzed [id number] 13:38:00* Test Item Value Reference Range Comments PHOSPHORUS (BEAKER) (test vepi=259) 2.3 mg/dL 2.3-4.7 Specimen markedly hemolyzed BASIC METABOLIC [id number] 13:38:00* Test Item Value Reference Range Comments SODIUM (BEAKER) (test bfci=892) 131 meq/L 136-145 POTASSIUM (BEAKER) (test ehww=308) 4.0 meq/L 3.5-5.1 Specimen markedly hemolyzed CHLORIDE (BEAKER) (test vozv=552) 101 meq/L 98-107 CO2 (BEAKER) (test iiry=702) 14 meq/L 22-29 BLOOD UREA NITROGEN (BEAKER) (test pwmb=679) 19 mg/dL 7-21 CREATININE (BEAKER) (test ozpa=663) 1.21 mg/dL 0.57-1.25 Specimen markedly hemolyzed GLUCOSE RANDOM (BEAKER) (test tvfk=569) 299 mg/dL 70-105 CALCIUM (BEAKER) (test tpzv=117) 9.7 mg/dL 8.4-10.2 EGFR (BEAKER) (test uthz=7233) 64 mL/min/1.73 sq m ESTIMATED GFR IS NOT ACCURATE CREATININE CLEARANCE IN PREDICTING GLOMERULAR FILTRATION RATE. ESTIMATED GFR IS NOT APPLICABLE FOR DIALYSIS PATIENTS. CBC W/PLT COUNT & AUTO [id number] 13:23:00* Test Item Value Reference Range Comments WHITE BLOOD CELL COUNT (BEAKER) (test aocf=465) 5.4 K/ L 3.5-10.5 RED BLOOD CELL COUNT (BEAKER) (test icek=200) 5.07 M/ L 4.63-6.08 HEMOGLOBIN (BEAKER) (test yook=295) 16.4 GM/DL 13.7-17.5 HEMATOCRIT (BEAKER) (test flrf=548) 45.3 % 40.1-51.0 MEAN CORPUSCULAR VOLUME (BEAKER) (test zete=143) 89.3 fL 79.0-92.2 MEAN CORPUSCULAR HEMOGLOBIN (BEAKER) (test wbtp=036) 32.3 pg 25.7-32.2 MEAN CORPUSCULAR HEMOGLOBIN CONC (BEAKER) (test cyfz=871) 36.2 GM/DL 32.3-36.5 RED CELL DISTRIBUTION WIDTH (BEAKER) (test ymyb=247) 13.5 % 11.6-14.4 PLATELET COUNT (BEAKER) (test egnl=645) 153 K/CU MM 150-450 MEAN PLATELET VOLUME (BEAKER) (test niit=292) 12.0 fL 9.4-12.4 NUCLEATED RED BLOOD CELLS (BEAKER) (test ajeg=170) 0 /100 WBC 0-0 NEUTROPHILS RELATIVE PERCENT (BEAKER) (test sxrq=454) 60 % LYMPHOCYTES RELATIVE PERCENT (BEAKER) (test sepm=208) 30 % MONOCYTES RELATIVE PERCENT (BEAKER) (test btms=284) 7 % EOSINOPHILS RELATIVE PERCENT (BEAKER) (test ibui=976) 2 % BASOPHILS RELATIVE PERCENT (BEAKER) (test idhm=225) 1 % NEUTROPHILS ABSOLUTE COUNT (BEAKER) (test thti=327) 3.25 K/ L 1.78-5.38 LYMPHOCYTES ABSOLUTE COUNT (BEAKER) (test jrcs=834) 1.60 K/ L 1.32-3.57 MONOCYTES ABSOLUTE COUNT (BEAKER) (test pzdr=522) 0.38 K/ L 0.30-0.82 EOSINOPHILS ABSOLUTE COUNT (BEAKER) (test snwb=235) 0.11 K/ L 0.04-0.54 BASOPHILS ABSOLUTE COUNT (BEAKER) (test cqyy=712) 0.03 K/ L 0.01-0.08 IMMATURE GRANULOCYTES-RELATIVE PERCENT (BEAKER) (test vmta=1659) 1 % 0-1 KETONE, [id number] 13:22:00* Test Item Value Reference Range Comments KETONES, BLOOD (BEAKER) (test hsek=3722) 0.2 mmol/L <0.4 POCT-GLUCOSE [id number] 12:22:00* Test Item Value Reference Range Comments POC-GLUCOSE METER (BEAKER) (test alfx=6036) 287 mg/dL 70-110 TESTED AT [facility] [address] [address] BASIC METABOLIC [id number] 15:14:00* Test Item Value Reference Range Comments SODIUM (BEAKER) (test ctjg=069) 130 meq/L 136-145 POTASSIUM (BEAKER) (test iokn=183) 3.8 meq/L 3.5-5.1 Specimen moderately hemolyzed CHLORIDE (BEAKER) (test eprd=901) 98 meq/L 98-107 CO2 (BEAKER) (test wvyx=064) 16 meq/L 22-29 BLOOD UREA NITROGEN (BEAKER) (test npzj=058) 24 mg/dL 7-21 CREATININE (BEAKER) (test dgua=947) 1.26 mg/dL 0.57-1.25 Specimen moderately hemolyzed GLUCOSE RANDOM (BEAKER) (test tlto=466) 247 mg/dL 70-105 CALCIUM (BEAKER) (test rrny=381) 9.0 mg/dL 8.4-10.2 EGFR (BEAKER) (test gwub=3138) 61 mL/min/1.73 sq m ESTIMATED GFR IS NOT ACCURATE CREATININE CLEARANCE IN PREDICTING GLOMERULAR FILTRATION RATE. ESTIMATED GFR IS NOT APPLICABLE FOR DIALYSIS PATIENTS. URINALYSIS W/ [id number] 13:35:00* Test Item Value Reference Range Comments COLOR (BEAKER) (test ryex=049) Light Yellow CLARITY (BEAKER) (test vrdd=968) Clear SPECIFIC GRAVITY UA (BEAKER) (test ofbf=058) 1.015 1.001-1.035 PH UA (BEAKER) (test ivcz=731) 5.5 5.0-8.0 PROTEIN UA (BEAKER) (test bcew=099) 20 mg/dL Negative GLUCOSE UA (BEAKER) (test dqbp=130) >1000 mg/dL Negative KETONES UA (BEAKER) (test zwhk=901) Negative Negative BILIRUBIN UA (BEAKER) (test kfzf=919) Negative Negative BLOOD UA (BEAKER) (test umcs=027) Negative Negative NITRITE UA (BEAKER) (test qxyd=022) Negative Negative LEUKOCYTE ESTERASE UA (BEAKER) (test dmhv=277) Negative Negative UROBILINOGEN UA (BEAKER) (test zhbq=583) 0.2 mg/dL 0.2-1.0 RBC UA (BEAKER) (test yiiw=269) < /HPF WBC UA (BEAKER) (test oeeh=709) < /HPF MUCUS (BEAKER) (test mxgh=6653) Rare SQUAMOUS EPITHELIAL (BEAKER) (test dtpn=839) < /HPF SOURCE(BEAKER) (test wune=4349) Urine, Voided CREATINE KINASE (CK), TOTAL AND [id number] 13:18:00* Test Item Value Reference Range Comments CREATINE KINASE TOTAL (BEAKER) (test lfmn=183) 188 U/L 29-200 CREATINE KINASE-MB (BEAKER) (test wbwm=832) 3.1 ng/mL 0.0-6.6 CREATINE KINASE-MB INDEX (BEAKER) (test jjrb=222) 1.6 % CK-MB Reference Range:<6.7 Normal6.7-10.0 Borderline>10.0 Abnormal TROPONIN [id number] 13:18:00* Test Item Value Reference Range Comments TROPONIN I (BEAKER) (test xffr=841) < ng/mL 0.00-0.03 Troponin I (TnI) levels must be interpreted in the context of the presenting sym ptoms and the clinical findings. Elevated TnI levels indicate myocardial damage, but are not specific for ischemic heart disease. Elevated TnI levels are seen in patients with other cardiac conditions (including myocarditis and congestive h eart failure), and slight TnI elevations occur in patients with other conditions , including sepsis, renal failure, acidosis, acute neurological disease, and per sistent tachyarrhythmia.KETONE, [id number] 13:15:00* Test Item Value Reference Range Comments KETONES, BLOOD (BEAKER) (test jmjp=2160) 0.2 mmol/L <0.4 BASIC METABOLIC [id number] 13:11:00* Test Item Value Reference Range Comments SODIUM (BEAKER) (test vqol=037) 127 meq/L 136-145 POTASSIUM (BEAKER) (test rulh=622) 3.8 meq/L 3.5-5.1 Specimen moderately hemolyzed CHLORIDE (BEAKER) (test hfba=262) 94 meq/L 98-107 CO2 (BEAKER) (test tooc=807) 16 meq/L 22-29 BLOOD UREA NITROGEN (BEAKER) (test udmk=988) 25 mg/dL 7-21 CREATININE (BEAKER) (test rrdk=586) 1.40 mg/dL 0.57-1.25 Specimen moderately hemolyzed GLUCOSE RANDOM (BEAKER) (test lvrd=033) 320 mg/dL 70-105 CALCIUM (BEAKER) (test lvvz=652) 9.3 mg/dL 8.4-10.2 EGFR (BEAKER) (test levu=0286) 54 mL/min/1.73 sq m ESTIMATED GFR IS NOT ACCURATE CREATININE CLEARANCE IN PREDICTING GLOMERULAR FILTRATION RATE. ESTIMATED GFR IS NOT APPLICABLE FOR DIALYSIS PATIENTS. BLOOD GAS, [id number] 12:57:00* Test Item Value Reference Range Comments PH VENOUS (BEAKER) (test bcmg=326) 7.41 7.32-7.42 PCO2 VENOUS (BEAKER) (test hmgi=860) 44 mmHg 41-51 PO2 VENOUS (BEAKER) (test rofw=607) 33 mmHg 25-40 O2 SATURATION VENOUS (BEAKER) (test erof=063) 67.3 % 40.0-70.0 HCO3 VENOUS (BEAKER) (test drfs=739) 27 mmol/L 21-29 BASE EXCESS VENOUS (BEAKER) (test kfem=109) 1.6 mmol/L -2.0-3.0 PATIENT TEMPERATURE (BEAKER) (test bwsb=7690) 36.0 C FIO2 (BEAKER) (test ukex=6608) 21.0 % CBC W/PLT COUNT & AUTO [id number] 12:49:00* Test Item Value Reference Range Comments WHITE BLOOD CELL COUNT (BEAKER) (test yzvp=494) 5.6 K/ L 3.5-10.5 RED BLOOD CELL COUNT (BEAKER) (test yqql=554) 4.99 M/ L 4.63-6.08 HEMOGLOBIN (BEAKER) (test fvhs=080) 15.6 GM/DL 13.7-17.5 HEMATOCRIT (BEAKER) (test qxda=220) 44.4 % 40.1-51.0 MEAN CORPUSCULAR VOLUME (BEAKER) (test jkas=384) 89.0 fL 79.0-92.2 MEAN CORPUSCULAR HEMOGLOBIN (BEAKER) (test wzsh=739) 31.3 pg 25.7-32.2 MEAN CORPUSCULAR HEMOGLOBIN CONC (BEAKER) (test rzaj=640) 35.1 GM/DL 32.3-36.5 RED CELL DISTRIBUTION WIDTH (BEAKER) (test ndlg=759) 13.7 % 11.6-14.4 PLATELET COUNT (BEAKER) (test wcxe=038) 113 K/CU MM 150-450 MEAN PLATELET VOLUME (BEAKER) (test olpm=078) 12.2 fL 9.4-12.4 NUCLEATED RED BLOOD CELLS (BEAKER) (test jszo=314) 0 /100 WBC 0-0 NEUTROPHILS RELATIVE PERCENT (BEAKER) (test rbme=801) 58 % LYMPHOCYTES RELATIVE PERCENT (BEAKER) (test kmcd=663) 32 % MONOCYTES RELATIVE PERCENT (BEAKER) (test oeic=106) 7 % EOSINOPHILS RELATIVE PERCENT (BEAKER) (test kmsy=100) 2 % BASOPHILS RELATIVE PERCENT (BEAKER) (test zyxd=564) 1 % NEUTROPHILS ABSOLUTE COUNT (BEAKER) (test krue=182) 3.25 K/ L 1.78-5.38 LYMPHOCYTES ABSOLUTE COUNT (BEAKER) (test umby=785) 1.81 K/ L 1.32-3.57 MONOCYTES ABSOLUTE COUNT (BEAKER) (test lsrw=878) 0.40 K/ L 0.30-0.82 EOSINOPHILS ABSOLUTE COUNT (BEAKER) (test uxgm=093) 0.11 K/ L 0.04-0.54 BASOPHILS ABSOLUTE COUNT (BEAKER) (test mcwh=711) 0.03 K/ L 0.01-0.08 IMMATURE GRANULOCYTES-RELATIVE PERCENT (BEAKER) (test nhkb=9683) 1 % 0-1 CT, CHEST, WITHOUT [id number] 14:32:00Reason for exam:->CHEST PAINWhat is the patient's sedation requirement?->No SedationFINAL REPORT DOSE REDUCTION: The examination was performed [...] and great vessels is unremarkable. Coronary artery joe cifications are seen. No pericardial effusion. No significant mediastinal or hil ar lymphadenopathy. There is bilateral gynecomastia. In the upper abdomen an exo phytic cystic structure arising from the spleen is again noted. No acute skeleta l abnormality. IMPRESSION: 1. No acute CT abnormality in the chest. Signed: Miguel Sahniort Verified Date/Time: 11/04/2017 14:32:02 Reading Location: [facility] Radiology Reading Room Electronically signed by: MIGUEL SAHNI M.D. on 02:32 PM RAD, CHEST, 1 VIEW, NON [id number] 14:18:00Reason for exam:->CHEST PAINShould this be performed at the bedside?->YesFINAL REPORT TECHNIQUE: Frontal chest radiographs dated 11/04/2017. CLINICAL HISTORY: Chest pain COMPARISON STUDY: Chest radiograph dated 10/13/2017 IMPRESSION: Lungs are clear. No pleural effusion or pneumothorax. Car diomediastinal silhouette is normal in size. No pulmonary edema. No fracture. De generative changes are seen in the spine. Signed: Rex Fontenot Ve rified Date/Time: 11/04/2017 14:18:53 Reading Location: [facility] Radiology Reading Room P M TROPONIN [id number] 13:35:00* Test Item Value Reference Range Comments TROPONIN I (EDGAR) (test kjmm=070) 0.01 ng/mL 0.00-0.03 Troponin I (TnI) levels must be interpreted in the context of the presenting sym ptoms and the clinical findings. Elevated TnI levels indicate myocardial damage, but are not specific for ischemic heart disease. Elevated TnI levels are seen in patients with other cardiac conditions (including myocarditis and congestive h eart failure), and slight TnI elevations occur in patients with other conditions , including sepsis, renal failure, acidosis, acute neurological disease, and per sistent tachyarrhythmia.[id number] 13:29:00* Test Item Value Reference Range Comments AMYLASE (EDGAR) (test eqep=431) 41 U/L 25-125 BASIC METABOLIC [id number] 13:29:00* Test Item Value Reference Range Comments SODIUM (BEAKER) (test hdai=689) 134 meq/L 136-145 POTASSIUM (BEAKER) (test gipq=971) 3.7 meq/L 3.5-5.1 CHLORIDE (BEAKER) (test bwal=515) 102 meq/L 98-107 CO2 (BEAKER) (test puyi=142) 24 meq/L 22-29 BLOOD UREA NITROGEN (BEAKER) (test giht=027) 25 mg/dL 7-21 CREATININE (BEAKER) (test pkmn=878) 1.68 mg/dL 0.57-1.25 GLUCOSE RANDOM (BEAKER) (test fwou=207) 298 mg/dL 70-105 CALCIUM (BEAKER) (test wdjy=770) 9.1 mg/dL 8.4-10.2 EGFR (BEAKER) (test kydb=5399) 44 mL/min/1.73 sq m ESTIMATED GFR IS NOT ACCURATE CREATININE CLEARANCE IN PREDICTING GLOMERULAR FILTRATION RATE. ESTIMATED GFR IS NOT APPLICABLE FOR DIALYSIS PATIENTS. [id number] 13:29:00* Test Item Value Reference Range Comments MAGNESIUM (BEAKER) (test vmlc=891) 2.0 mg/dL 1.6-2.6 [id number] 13:29:00* Test Item Value Reference Range Comments LIPASE (BEAKER) (test hdvc=923) 14 U/L 8-78 PT/[id number] 13:24:00* Test Item Value Reference Range Comments PROTIME (BEAKER) (test sgou=462) 15.9 seconds 11.7-14.7 INR (BEAKER) (test lygy=018) 1.3 <=5.9 PARTIAL THROMBOPLASTIN TIME (BEAKER) (test exab=035) 28.7 seconds 22.5-36.0 RECOMMENDED COUMADIN/WARFARIN INR THERAPY RANGESSTANDARD DOSE: 2.0 - 3.0 Inclu josé: PROPHYLAXIS for venous thrombosis, systemic embolization; TREATMENT for angelika ous thrombosis and/or pulmonary embolus.HIGH RISK: Target INR is 2.5-3.5 for pat ients with mechanical heart valves.CBC W/PLT COUNT & AUTO [id number] 13:07:00* Test Item Value Reference Range Comments WHITE BLOOD CELL COUNT (BEAKER) (test uzeo=452) 6.0 K/ L 3.5-10.5 RED BLOOD CELL COUNT (BEAKER) (test erzv=157) 4.65 M/ L 4.63-6.08 HEMOGLOBIN (BEAKER) (test pxjg=466) 14.2 GM/DL 13.7-17.5 HEMATOCRIT (BEAKER) (test ezpn=760) 42.6 % 40.1-51.0 MEAN CORPUSCULAR VOLUME (BEAKER) (test ovdg=908) 91.6 fL 79.0-92.2 MEAN CORPUSCULAR HEMOGLOBIN (BEAKER) (test rjam=137) 30.5 pg 25.7-32.2 MEAN CORPUSCULAR HEMOGLOBIN CONC (BEAKER) (test rznb=413) 33.3 GM/DL 32.3-36.5 RED CELL DISTRIBUTION WIDTH (BEAKER) (test nzvy=877) 13.8 % 11.6-14.4 PLATELET COUNT (BEAKER) (test yiex=880) 115 K/CU MM 150-450 MEAN PLATELET VOLUME (BEAKER) (test bpgq=301) 12.0 fL 9.4-12.4 NUCLEATED RED BLOOD CELLS (BEAKER) (test lrzw=803) 0 /100 WBC 0-0 NEUTROPHILS RELATIVE PERCENT (BEAKER) (test lkmm=251) 68 % LYMPHOCYTES RELATIVE PERCENT (BEAKER) (test unfa=773) 19 % MONOCYTES RELATIVE PERCENT (BEAKER) (test xjli=247) 10 % EOSINOPHILS RELATIVE PERCENT (BEAKER) (test fvkv=837) 2 % BASOPHILS RELATIVE PERCENT (BEAKER) (test tcbv=582) 0 % NEUTROPHILS ABSOLUTE COUNT (BEAKER) (test dzbf=687) 4.04 K/ L 1.78-5.38 LYMPHOCYTES ABSOLUTE COUNT (BEAKER) (test cuee=131) 1.10 K/ L 1.32-3.57 MONOCYTES ABSOLUTE COUNT (BEAKER) (test bmdm=027) 0.62 K/ L 0.30-0.82 EOSINOPHILS ABSOLUTE COUNT (BEAKER) (test pksg=919) 0.14 K/ L 0.04-0.54 BASOPHILS ABSOLUTE COUNT (BEAKER) (test ochm=869) 0.01 K/ L 0.01-0.08 IMMATURE GRANULOCYTES-RELATIVE PERCENT (BEAKER) (test jeds=8932) 1 % 0-1 ABDOMEN ACUTE SERIES W/PA [id number] 04:30:00 [place] [address] Patient Name: DC BARNHART MR #: [id number] : 1970 Age/Sex: 47/M Req #: [id number] Adm Physician: Ordered by: DC VENCES MD Report #: [id number] Location: ER Room/Bed: Procedure: [id number] DX/ABDOMEN ACUTE SERIES W/PA CXR Exam Date: 11/03/17 Exam Time: 0405 REPORT STATUS: Signed EXAM: ABDOMEN ACUTE SERIES W/PA CXR DATE: 11/03/2017 3:48 AM Time stamp on exam: 0359 hours INDICATION: Vomiting, diarrhea C OMPARISON: None FINDINGS: LINES/TUBES: None BOWEL PATTERN: No james dence for obstruction. There is evidence of small bowel wall thickening noted in the left hemiabdomen SOFT TISSUES: No abnormal calcifications. No mass e ffect. LUNGS: The lungs are clear. BONES: No acute findings. IMPR ESSION: 1. Nonobstructed bowel gas pattern. 2. However, there is thickenin g of the small bowel folds suggestive of enteritis 3. No acute intrathoraci c abnormality. Signed by: Dr. Catrachito Wright M.D. on 11/03/2017 4:32 AM Dictated By: CATRACHITO RUIZ MD 1 Transcribed By: SOSA on 11/03/17431 REVENUE LIAISON Y TO: DC VENCES MD [facility] W/[id number] 21:59:00 [place] [address] Patient Name: DC BARNHART MR #: [id number] : 1970 Age/Sex: 47/M Req #: [id number] Adm Physician: Ordered by: YINKA POWERS MD Report #: [id number] Location: ER Room/Bed: Procedure: [id number] DX/RIBS UNILAT W/CXR Exam Charanjit e: 10/30/17 Exam Time: 2131 REPORT STATUS: Sign ed Exam: AP view of the chest and right rib series Indication: Fall in bath room, right rib, right chest and clavicle pain Comparison: AP chest June 20 Findings: Normal appearance of the chest. No evidence of a fracture. Impression: No acute findings Signed by: Dr. Vu Donahue M.D. on 10/30/2017 10:04 PM Dictated By: VU DONAHUE MD Electronically Sig jose angel By: VU DONAHUE MD on 10/30/172203 Transcribed By: SOSA on 10/30/17 204 COPY TO: YINKA POWERS MD URINALYSIS W/ [id number] 14:51:00* Test Item Value Reference Range Comments COLOR (BEAKER) (test bauz=415) Yellow CLARITY (BEAKER) (test hhxh=291) Clear SPECIFIC GRAVITY UA (BEAKER) (test rcze=480) 1.029 1.001-1.035 PH UA (BEAKER) (test leig=960) 5.5 5.0-8.0 PROTEIN UA (BEAKER) (test detx=700) 100 mg/dL Negative GLUCOSE UA (BEAKER) (test khmo=015) >1000 mg/dL Negative KETONES UA (BEAKER) (test bvvs=878) Negative Negative BILIRUBIN UA (BEAKER) (test gbgw=410) Negative Negative BLOOD UA (BEAKER) (test bmwa=642) Negative Negative NITRITE UA (BEAKER) (test tvcp=364) Negative Negative LEUKOCYTE ESTERASE UA (BEAKER) (test zvca=535) Negative Negative UROBILINOGEN UA (BEAKER) (test diyw=300) 0.2 mg/dL 0.2-1.0 RBC UA (BEAKER) (test qncu=629) < /HPF WBC UA (BEAKER) (test rwky=706) 3 /HPF MUCUS (BEAKER) (test yfcm=9916) Rare SQUAMOUS EPITHELIAL (BEAKER) (test sybp=263) 1 /HPF SOURCE(BEAKER) (test swly=2234) Urine, Clean Catch TROPONIN [id number] 14:01:00* Test Item Value Reference Range Comments TROPONIN I (BEAKER) (test ihbo=969) < ng/mL 0.00-0.03 Troponin I (TnI) levels must be interpreted in the context of the presenting sym ptoms and the clinical findings. Elevated TnI levels indicate myocardial damage, but are not specific for ischemic heart disease. Elevated TnI levels are seen in patients with other cardiac conditions (including myocarditis and congestive h eart failure), and slight TnI elevations occur in patients with other conditions , including sepsis, renal failure, acidosis, acute neurological disease, and per sistent tachyarrhythmia.B-TYPE NATRIURETIC FACTOR (BNP)2017-10-13 14:01:00* Test Item Value Reference Range Comments B-TYPE NATRIURETIC PEPTIDE (BEAKER) (test jemy=958) 27 pg/mL 0-100 [id number] 13:55:00* Test Item Value Reference Range Comments MAGNESIUM (BEAKER) (test vyvr=692) 2.4 mg/dL 1.6-2.6 Specimen slightly hemolyzed BASIC METABOLIC [id number] 13:55:00* Test Item Value Reference Range Comments SODIUM (BEAKER) (test vujh=721) 137 meq/L 136-145 POTASSIUM (BEAKER) (test jzbp=145) 3.9 meq/L 3.5-5.1 Specimen slightly hemolyzed CHLORIDE (BEAKER) (test fcau=602) 101 meq/L 98-107 CO2 (BEAKER) (test iofx=930) 23 meq/L 22-29 BLOOD UREA NITROGEN (BEAKER) (test tnic=872) 24 mg/dL 7-21 CREATININE (BEAKER) (test kzap=454) 1.61 mg/dL 0.57-1.25 Specimen slightly hemolyzed GLUCOSE RANDOM (BEAKER) (test fhdw=713) 223 mg/dL 70-105 CALCIUM (BEAKER) (test ofuf=007) 10.1 mg/dL 8.4-10.2 EGFR (BEAKER) (test eiqx=9809) 46 mL/min/1.73 sq m ESTIMATED GFR IS NOT ACCURATE CREATININE CLEARANCE IN PREDICTING GLOMERULAR FILTRATION RATE. ESTIMATED GFR IS NOT APPLICABLE FOR DIALYSIS PATIENTS. CREATINE KINASE (CK)2017-10-13 13:55:00* Test Item Value Reference Range Comments CREATINE KINASE TOTAL (BEAKER) (test umwy=092) 148 U/L 29-200 RAD, CHEST, 1 VIEW, NON [id number] 13:38:00Reason for exam:->chest painFINAL REPORT TECHNIQUE: Frontal chest radiograph dated . CLINICAL HISTORY: Chest pain COMPARISON STUDY: Chest radiograph dated 08/17/2017 FINDINGS: Lungs are clear. No pleural effusion or pneumothorax. Cardi omediastinal silhouette is normal in size. No pulmonary edema. Bones are osteope ellyn. Degenerative changes are seen in the spine. IMPRESSION: Clear lungs. Signed : Rex Fontenoteport Verified Date/Time: 10/13/2017 13:38:47 Reading L ocation: [facility] Radiology Reading Room W/PLT COUNT & AUTO [id number] 13:37:00* Test Item Value Reference Range Comments WHITE BLOOD CELL COUNT (BEAKER) (test qiwb=533) 5.1 K/ L 3.5-10.5 RED BLOOD CELL COUNT (BEAKER) (test tvuc=463) 5.38 M/ L 4.63-6.08 HEMOGLOBIN (BEAKER) (test plhx=984) 16.6 GM/DL 13.7-17.5 HEMATOCRIT (BEAKER) (test syfg=312) 48.1 % 40.1-51.0 MEAN CORPUSCULAR VOLUME (BEAKER) (test nlds=013) 89.4 fL 79.0-92.2 MEAN CORPUSCULAR HEMOGLOBIN (BEAKER) (test sumv=147) 30.9 pg 25.7-32.2 MEAN CORPUSCULAR HEMOGLOBIN CONC (BEAKER) (test kmws=991) 34.5 GM/DL 32.3-36.5 RED CELL DISTRIBUTION WIDTH (BEAKER) (test hkfd=757) 12.8 % 11.6-14.4 PLATELET COUNT (BEAKER) (test yeww=380) 132 K/CU MM 150-450 MEAN PLATELET VOLUME (BEAKER) (test qmvc=067) 12.0 fL 9.4-12.4 NUCLEATED RED BLOOD CELLS (BEAKER) (test qjuh=350) 0 /100 WBC 0-0 NEUTROPHILS RELATIVE PERCENT (BEAKER) (test xoai=903) 63 % LYMPHOCYTES RELATIVE PERCENT (BEAKER) (test sync=723) 25 % MONOCYTES RELATIVE PERCENT (BEAKER) (test ontq=027) 9 % EOSINOPHILS RELATIVE PERCENT (BEAKER) (test dbeq=997) 2 % BASOPHILS RELATIVE PERCENT (BEAKER) (test kpuu=530) 0 % NEUTROPHILS ABSOLUTE COUNT (BEAKER) (test bvta=434) 3.25 K/ L 1.78-5.38 LYMPHOCYTES ABSOLUTE COUNT (BEAKER) (test bwbg=734) 1.27 K/ L 1.32-3.57 MONOCYTES ABSOLUTE COUNT (BEAKER) (test pgkc=033) 0.46 K/ L 0.30-0.82 EOSINOPHILS ABSOLUTE COUNT (BEAKER) (test rjof=161) 0.09 K/ L 0.04-0.54 BASOPHILS ABSOLUTE COUNT (BEAKER) (test orku=634) 0.02 K/ L 0.01-0.08 IMMATURE GRANULOCYTES-RELATIVE PERCENT (BEAKER) (test ecvb=2551) 1 % 0-1 RAD, CHEST, 1 VIEW, NON [id number] 15:21:00Reason for exam:->sobShould this be performed at the bedside?->NoFINAL REPORT Two frontal chest images compared to June 29, 2017 Discussion: Heart, lungs, bones, soft tissues unremarkable. No effusion or pneumothorax. Signed: Nico Bernard Verified Date/Time: 08/17/2017 15:21:35 Reading Location: [facility] [id number] Consult Reading Room TINE KINASE (CK), TOTAL AND [id number] 13:38:00* Test Item Value Reference Range Comments CREATINE KINASE TOTAL (BEAKER) (test oiaw=347) 223 U/L 29-200 CREATINE KINASE-MB (BEAKER) (test edwk=580) 3.0 ng/mL 0.0-6.6 CREATINE KINASE-MB INDEX (BEAKER) (test izhi=021) 1.3 % CK-MB Reference Range:<6.7 Normal6.7-10.0 Borderline>10.0 Abnormal TROPONIN [id number] 13:38:00* Test Item Value Reference Range Comments TROPONIN I (BEAKER) (test mrzq=037) 0.01 ng/mL 0.00-0.03 Troponin I (TnI) levels must be interpreted in the context of the presenting sym ptoms and the clinical findings. Elevated TnI levels indicate myocardial damage, but are not specific for ischemic heart disease. Elevated TnI levels are seen in patients with other cardiac conditions (including myocarditis and congestive h eart failure), and slight TnI elevations occur in patients with other conditions , including sepsis, renal failure, acidosis, acute neurological disease, and per sistent tachyarrhythmia.B-TYPE NATRIURETIC FACTOR (BNP)2017-08-17 13:34:00* Test Item Value Reference Range Comments B-TYPE NATRIURETIC PEPTIDE (BEAKER) (test zsjr=223) 12 pg/mL 0-100 BASIC METABOLIC [id number] 13:31:00* Test Item Value Reference Range Comments SODIUM (BEAKER) (test zwnj=288) 139 meq/L 136-145 POTASSIUM (BEAKER) (test kidx=347) 4.0 meq/L 3.5-5.1 Specimen slightly hemolyzed CHLORIDE (BEAKER) (test eyqy=207) 105 meq/L 98-107 CO2 (BEAKER) (test jovy=146) 22 meq/L 22-29 BLOOD UREA NITROGEN (BEAKER) (test pdyi=222) 22 mg/dL 7-21 CREATININE (BEAKER) (test eoea=945) 1.48 mg/dL 0.57-1.25 Specimen slightly hemolyzed GLUCOSE RANDOM (BEAKER) (test hfmy=424) 188 mg/dL 70-105 CALCIUM (BEAKER) (test usor=725) 9.8 mg/dL 8.4-10.2 EGFR (BEAKER) (test vlen=5325) 51 mL/min/1.73 sq m ESTIMATED GFR IS NOT ACCURATE CREATININE CLEARANCE IN PREDICTING GLOMERULAR FILTRATION RATE. ESTIMATED GFR IS NOT APPLICABLE FOR DIALYSIS PATIENTS. CBC W/PLT COUNT & AUTO [id number] 13:10:00* Test Item Value Reference Range Comments WHITE BLOOD CELL COUNT (BEAKER) (test sopy=295) 5.6 K/ L 3.5-10.5 RED BLOOD CELL COUNT (BEAKER) (test iqvt=321) 4.76 M/ L 4.63-6.08 HEMOGLOBIN (BEAKER) (test jlzv=606) 15.5 GM/DL 13.7-17.5 HEMATOCRIT (BEAKER) (test nbzo=258) 44.2 % 40.1-51.0 MEAN CORPUSCULAR VOLUME (BEAKER) (test xrkq=611) 92.9 fL 79.0-92.2 MEAN CORPUSCULAR HEMOGLOBIN (BEAKER) (test hfkn=250) 32.6 pg 25.7-32.2 MEAN CORPUSCULAR HEMOGLOBIN CONC (BEAKER) (test munz=428) 35.1 GM/DL 32.3-36.5 RED CELL DISTRIBUTION WIDTH (BEAKER) (test wzyz=279) 13.4 % 11.6-14.4 PLATELET COUNT (BEAKER) (test mvpi=859) 160 K/CU MM 150-450 MEAN PLATELET VOLUME (BEAKER) (test uxfq=216) 11.6 fL 9.4-12.4 NUCLEATED RED BLOOD CELLS (BEAKER) (test lepr=908) 0 /100 WBC 0-0 NEUTROPHILS RELATIVE PERCENT (BEAKER) (test xvog=396) 55 % LYMPHOCYTES RELATIVE PERCENT (BEAKER) (test kwcj=558) 32 % MONOCYTES RELATIVE PERCENT (BEAKER) (test ckai=403) 10 % EOSINOPHILS RELATIVE PERCENT (BEAKER) (test yihi=008) 2 % BASOPHILS RELATIVE PERCENT (BEAKER) (test zjcx=310) 1 % NEUTROPHILS ABSOLUTE COUNT (BEAKER) (test hpek=070) 3.07 K/ L 1.78-5.38 LYMPHOCYTES ABSOLUTE COUNT (BEAKER) (test kwrf=642) 1.78 K/ L 1.32-3.57 MONOCYTES ABSOLUTE COUNT (BEAKER) (test jzvn=265) 0.53 K/ L 0.30-0.82 EOSINOPHILS ABSOLUTE COUNT (BEAKER) (test mpvc=789) 0.13 K/ L 0.04-0.54 BASOPHILS ABSOLUTE COUNT (BEAKER) (test zshb=385) 0.03 K/ L 0.01-0.08 IMMATURE GRANULOCYTES-RELATIVE PERCENT (BEAKER) (test mkwt=3395) 1 % 0-1 BLOOD [id number] 00:00:00* Test Item Value Reference Range Comments CULTURE (BEAKER) (test ooad=8348) No growth in 5 days BLOOD [id number] 00:00:00* Test Item Value Reference Range Comments CULTURE (BEAKER) (test qejl=1523) No growth in 5 days STOOL CULTURE + SHIGA [id number] 09:52:00* Test Item Value Reference Range Comments CULTURE (BEAKER) (test ffqp=7576) No Salmonella, Shigella or Campylobacter isolated POCT-GLUCOSE [id number] 13:41:00* Test Item Value Reference Range Comments POC-GLUCOSE METER (BEAKER) (test yzxv=3604) 214 mg/dL 70-110 TESTED AT [facility] [address] [address] [id number] 10:17:00* Test Item Value Reference Range Comments MAGNESIUM (BEAKER) (test vcnl=621) 2.4 mg/dL 1.6-2.6 Specimen slightly hemolyzed BASIC METABOLIC [id number] 10:17:00* Test Item Value Reference Range Comments SODIUM (BEAKER) (test aypb=671) 128 meq/L 136-145 POTASSIUM (BEAKER) (test rtel=053) 3.8 meq/L 3.5-5.1 Specimen slightly hemolyzed CHLORIDE (BEAKER) (test zgvt=669) 95 meq/L 98-107 CO2 (BEAKER) (test ftkr=876) 17 meq/L 22-29 BLOOD UREA NITROGEN (BEAKER) (test cmzq=192) 13 mg/dL 7-21 CREATININE (BEAKER) (test bmlg=804) 0.99 mg/dL 0.57-1.25 Specimen slightly hemolyzed GLUCOSE RANDOM (BEAKER) (test itmq=517) 327 mg/dL 70-105 CALCIUM (BEAKER) (test lmjw=563) 8.9 mg/dL 8.4-10.2 EGFR (BEAKER) (test rvmc=3032) 81 mL/min/1.73 sq m ESTIMATED GFR IS NOT ACCURATE CREATININE CLEARANCE IN PREDICTING GLOMERULAR FILTRATION RATE. ESTIMATED GFR IS NOT APPLICABLE FOR DIALYSIS PATIENTS. Specimen slightly ictericSTOOL PATH [id number] 09:35:00* Test Item Value Reference Range Comments PATHOGEN EXAM CHARGED (BEAKER) (test pqna=2601) Done POCT-GLUCOSE [id number] 08:53:00* Test Item Value Reference Range Comments POC-GLUCOSE METER (BEAKER) (test ebuz=1336) 210 mg/dL 70-110 TESTED AT [facility] [address] [address] BLOOD GAS, [id number] 06:11:00* Test Item Value Reference Range Comments PH ARTERIAL (BEAKER) (test qtod=616) 7.39 7.35-7.45 PCO2 ARTERIAL (BEAKER) (test edyb=075) 44 mmHg 35-45 PO2 ARTERIAL (BEAKER) (test bjex=579) 66 mmHg 80-90 O2 SATURATION ARTERIAL (BEAKER) (test jfft=466) 93.3 % 96.0-97.0 HCO3 ARTERIAL (BEAKER) (test ndow=551) 26 mmol/L 21-29 BASE EXCESS ARTERIAL (BEAKER) (test jrav=186) 0.8 mmol/L -2.0-3.0 PATIENT TEMPERATURE (BEAKER) (test svxz=5421) 36.7 C FIO2 (BEAKER) (test cysy=9375) 21.0 % CBC W/PLT COUNT & AUTO [id number] 06:07:00* Test Item Value Reference Range Comments WHITE BLOOD CELL COUNT (BEAKER) (test zgsb=562) 3.6 K/ L 3.5-10.5 RED BLOOD CELL COUNT (BEAKER) (test mexb=341) 4.47 M/ L 4.63-6.08 HEMOGLOBIN (BEAKER) (test lbyy=258) 15.1 GM/DL 13.7-17.5 HEMATOCRIT (BEAKER) (test mjsn=209) 39.4 % 40.1-51.0 MEAN CORPUSCULAR VOLUME (BEAKER) (test vfls=705) 88.1 fL 79.0-92.2 MEAN CORPUSCULAR HEMOGLOBIN (BEAKER) (test jqog=718) 33.8 pg 25.7-32.2 MEAN CORPUSCULAR HEMOGLOBIN CONC (BEAKER) (test vzfz=589) 38.3 GM/DL 32.3-36.5 RED CELL DISTRIBUTION WIDTH (BEAKER) (test scwc=733) 14.1 % 11.6-14.4 PLATELET COUNT (BEAKER) (test xqhd=415) 195 K/CU MM 150-450 MEAN PLATELET VOLUME (BEAKER) (test drow=172) 13.7 fL 9.4-12.4 NUCLEATED RED BLOOD CELLS (BEAKER) (test pkry=304) 0 /100 WBC 0-0 NEUTROPHILS RELATIVE PERCENT (BEAKER) (test czti=906) 50 % LYMPHOCYTES RELATIVE PERCENT (BEAKER) (test kfba=131) 37 % MONOCYTES RELATIVE PERCENT (BEAKER) (test fyeu=095) 9 % EOSINOPHILS RELATIVE PERCENT (BEAKER) (test lyvl=021) 4 % BASOPHILS RELATIVE PERCENT (BEAKER) (test zlth=403) 1 % NEUTROPHILS ABSOLUTE COUNT (BEAKER) (test fjlk=089) 1.80 K/ L 1.78-5.38 LYMPHOCYTES ABSOLUTE COUNT (BEAKER) (test xmrv=552) 1.34 K/ L 1.32-3.57 MONOCYTES ABSOLUTE COUNT (BEAKER) (test asgq=126) 0.31 K/ L 0.30-0.82 EOSINOPHILS ABSOLUTE COUNT (BEAKER) (test gonq=016) 0.13 K/ L 0.04-0.54 BASOPHILS ABSOLUTE COUNT (BEAKER) (test ufal=496) 0.02 K/ L 0.01-0.08 IMMATURE GRANULOCYTES-RELATIVE PERCENT (BEAKER) (test cidv=1505) 1 % 0-1 POCT-GLUCOSE [id number] 22:14:00* Test Item Value Reference Range Comments POC-GLUCOSE METER (BEAKER) (test figh=4612) 243 mg/dL 70-110 TESTED AT [facility] [address] [address] LACTIC ACID, VENOUS, WHOLE [id number] 18:54:00* Test Item Value Reference Range Comments LACTATE BLOOD VENOUS (2) (BEAKER) (test jedv=1862) 2.2 mmol/L 0.5-2.2 Specimen markedly hemolyzed Effective 07/23/2015: Units/Reference Range ChangeNew: 0.5-2.2 mmol/L Previous: 5 -20 mg/dLSpecimen markedly lipemicBLOOD GAS, [id number] 18:51:00* Test Item Value Reference Range Comments PH VENOUS (BEAKER) (test ubpi=857) 7.37 7.32-7.42 PCO2 VENOUS (BEAKER) (test goxf=923) 51 mmHg 41-51 PO2 VENOUS (BEAKER) (test enxl=504) 17 mmHg 25-40 O2 SATURATION VENOUS (BEAKER) (test pnur=651) 22.3 % 40.0-70.0 HCO3 VENOUS (BEAKER) (test yvur=116) 29 mmol/L 21-29 BASE EXCESS VENOUS (BEAKER) (test awkh=626) 2.7 mmol/L -2.0-3.0 PATIENT TEMPERATURE (BEAKER) (test klcv=4864) 37.0 C KETONE, [id number] 18:42:00* Test Item Value Reference Range Comments KETONES, BLOOD (BEAKER) (test etkg=5850) 0.3 mmol/L <0.4 BASIC METABOLIC [id number] 17:31:00* Test Item Value Reference Range Comments SODIUM (BEAKER) (test mjhd=027) 129 meq/L 136-145 POTASSIUM (BEAKER) (test atqi=705) 4.6 meq/L 3.5-5.1 Specimen markedly hemolyzed CHLORIDE (BEAKER) (test plhd=222) 98 meq/L 98-107 CO2 (BEAKER) (test mbjn=450) 9 meq/L 22-29 BLOOD UREA NITROGEN (BEAKER) (test qvha=853) 11 mg/dL 7-21 CREATININE (BEAKER) (test qtgh=187) 0.96 mg/dL 0.57-1.25 Specimen markedly hemolyzed GLUCOSE RANDOM (BEAKER) (test tfwg=419) 250 mg/dL 70-105 CALCIUM (BEAKER) (test atjr=444) 8.9 mg/dL 8.4-10.2 EGFR (BEAKER) (test chsf=6937) 84 mL/min/1.73 sq m ESTIMATED GFR IS NOT ACCURATE CREATININE CLEARANCE IN PREDICTING GLOMERULAR FILTRATION RATE. ESTIMATED GFR IS NOT APPLICABLE FOR DIALYSIS PATIENTS. 5th sample drawn for this patient today.[id number] 17:20:00* Test Item Value Reference Range Comments MAGNESIUM (BEAKER) (test oyzm=058) 2.8 mg/dL 1.6-2.6 Specimen markedly hemolyzed HEPATIC FUNCTION [id number] 17:20:00* Test Item Value Reference Range Comments TOTAL PROTEIN (BEAKER) (test rfgi=012) 7.6 gm/dL 6.0-8.3 Specimen markedly hemolyzed ALBUMIN (BEAKER) (test bzvg=0967) 3.7 g/dL 3.5-5.0 Specimen markedly hemolyzed BILIRUBIN TOTAL (BEAKER) (test oaxy=150) 0.6 mg/dL 0.2-1.2 Specimen markedly hemolyzed BILIRUBIN DIRECT (BEAKER) (test xvhb=695) 0.1 mg/dL 0.1-0.5 Specimen markedly hemolyzed ALKALINE PHOSPHATASE (BEAKER) (test ewpb=822) 55 U/L 40-150 AST (SGOT) (BEAKER) (test wded=569) 47 U/L 5-34 Specimen markedly hemolyzed ALT (SGPT) (BEAKER) (test xruq=519) 32 U/L 6-55 Specimen markedly hemolyzed Specimen moderately [id number] 17:20:00* Test Item Value Reference Range Comments LIPASE (BEAKER) (test uapq=833) 35 U/L 8-78 POCT-GLUCOSE [id number] 17:14:00* Test Item Value Reference Range Comments POC-GLUCOSE METER (BEAKER) (test lwbe=5289) 224 mg/dL 70-110 TESTED AT [facility] [address] [address] POCT-GLUCOSE [id number] 14:03:00* Test Item Value Reference Range Comments POC-GLUCOSE METER (BEAKER) (test rvpx=6563) 227 mg/dL 70-110 TESTED AT [facility] [address] [address] URINE [id number] 11:05:00* Test Item Value Reference Range Comments CULTURE (BEAKER) (test dckg=1752) >100,000 col/mL skin omar CBC W/PLT COUNT & AUTO [id number] 10:22:00* Test Item Value Reference Range Comments WHITE BLOOD CELL COUNT (BEAKER) (test aarr=774) 3.5 K/ L 3.5-10.5 RED BLOOD CELL COUNT (BEAKER) (test stfd=615) 4.27 M/ L 4.63-6.08 HEMOGLOBIN (BEAKER) (test kvfa=605) 15.0 GM/DL 13.7-17.5 HEMATOCRIT (BEAKER) (test wfpo=365) 38.3 % 40.1-51.0 MEAN CORPUSCULAR VOLUME (BEAKER) (test imap=723) 89.7 fL 79.0-92.2 MEAN CORPUSCULAR HEMOGLOBIN (BEAKER) (test odhq=123) 35.1 pg 25.7-32.2 MEAN CORPUSCULAR HEMOGLOBIN CONC (BEAKER) (test zgbz=110) 39.2 GM/DL 32.3-36.5 RED CELL DISTRIBUTION WIDTH (BEAKER) (test hdqw=247) 13.3 % 11.6-14.4 PLATELET COUNT (BEAKER) (test krce=193) 124 K/CU MM 150-450 MEAN PLATELET VOLUME (BEAKER) (test rmjn=821) 12.4 fL 9.4-12.4 NUCLEATED RED BLOOD CELLS (BEAKER) (test menc=425) 0 /100 WBC 0-0 NEUTROPHILS RELATIVE PERCENT (BEAKER) (test ocdk=154) 51 % LYMPHOCYTES RELATIVE PERCENT (BEAKER) (test uhiq=718) 37 % MONOCYTES RELATIVE PERCENT (BEAKER) (test ygbs=876) 8 % EOSINOPHILS RELATIVE PERCENT (BEAKER) (test toti=145) 4 % BASOPHILS RELATIVE PERCENT (BEAKER) (test iilp=719) 1 % NEUTROPHILS ABSOLUTE COUNT (BEAKER) (test xupt=089) 1.76 K/ L 1.78-5.38 LYMPHOCYTES ABSOLUTE COUNT (BEAKER) (test xpxc=340) 1.29 K/ L 1.32-3.57 MONOCYTES ABSOLUTE COUNT (BEAKER) (test iwaz=227) 0.26 K/ L 0.30-0.82 EOSINOPHILS ABSOLUTE COUNT (BEAKER) (test jwuf=450) 0.14 K/ L 0.04-0.54 BASOPHILS ABSOLUTE COUNT (BEAKER) (test pfmz=947) 0.02 K/ L 0.01-0.08 IMMATURE GRANULOCYTES-RELATIVE PERCENT (BEAKER) (test nngm=4739) 0 % 0-1 (MANUAL DIFFERENTIAL)2017-07-01 10:22:00* Test Item Value Reference Range Comments TOTAL COUNTED (BEAKER) (test dajv=9052) WBC MORPHOLOGY (BEAKER) (test zusi=613) Normal PLT MORPHOLOGY (BEAKER) (test oemb=410) Normal RBC MORPHOLOGY (BEAKER) (test sieb=830) Normal POCT-GLUCOSE [id number] 08:09:00* Test Item Value Reference Range Comments POC-GLUCOSE METER (BEAKER) (test cudr=3910) 249 mg/dL 70-110 TESTED AT [address] [address] LACTIC ACID, VENOUS, WHOLE [id number] 06:03:00* Test Item Value Reference Range Comments LACTATE BLOOD VENOUS (2) (BEAKER) (test pwnk=9482) 1.5 mmol/L 0.5-2.2 Specimen moderately hemolyzed Effective 07/23/2015: Units/Reference Range ChangeNew: 0.5-2.2 mmol/L Previous: 5 -20 mg/dLSpecimen slightly ictericSpecimen markedly lipemicC. DIFFICILE GDH [id number] 00:40:00* Test Item Value Reference Range Comments CDT TOXIN (test njzj=[id number]) Negative Negative CDT GDH ANTIGEN (test rdzf=[id number]) Negative Negative No indication of Clostridium difficile infection and no colonization. Discontinue enteric isolation and therapy. Testing performed by [employer] Rapid Cassette Assay. For GDH, published sensitivity of the assay is 98.7% compared to cytotoxicity testing. For Toxin AB, published sensitivity is 87.8% and specificity 99.4% compared to cytotoxicity testing.Ve rification of kit performance was done by the [facility] Microbiology Lab prior to cl inical use.Testing performed by [employer] Rapid Cassette Assay. For GDH, published sensitivity of the assay is 98.7% compared to cytotoxicity testing. For Toxin A B, published sensitivity is 87.8% and specificity 99.4% compared to cytotoxicity testing.Verification of kit performance was done by the [facility] Microbiology Lab prior to clinical use.POCT-GLUCOSE [id number] 22:02:00* Test Item Value Reference Range Comments POC-GLUCOSE METER (BEAKER) (test pagb=7213) 298 mg/dL 70-110 TESTED AT [address] [address] HEMOGLOBIN [id number] 17:59:00* Test Item Value Reference Range Comments HEMOGLOBIN A1C (BEAKER) (test etbq=281) 13.7 % 4.3-6.1 POCT-GLUCOSE [id number] 17:37:00* Test Item Value Reference Range Comments POC-GLUCOSE METER (BEAKER) (test hadd=6387) 258 mg/dL 70-110 TESTED AT [address] [address] POCT-GLUCOSE [id number] 13:39:00* Test Item Value Reference Range Comments POC-GLUCOSE METER (BEAKER) (test qynz=2890) 247 mg/dL 70-110 TESTED AT [address] [address] LIPID [id number] 13:27:00* Test Item Value Reference Range Comments TRIGLYCERIDES (BEAKER) (test ydyf=208) 5383 mg/dL Specimen markedly hemolyzed CHOLESTEROL (BEAKER) (test xmas=709) 451 mg/dL Specimen markedly hemolyzed HDL CHOLESTEROL (BEAKER) (test zopb=495) 12 mg/dL Calculated LDL not valid if triglyceride >400 mg/dLTriglyceride Reference Range: Low Risk <150 Borderline 150-199 High Risk 200-499 Very High Risk >=500Cholesterol Reference Range: Low Risk <200 Borderline 200-239 High Risk >240HDL Cholesterol Reference Range: Low Risk >=60 High Risk <40LDL Cholesterol Reference Range: Optimal <100 Near Optimal 100-129 Borderline 130-159 High 160-189 Very High >=190 Specimen markedly lipemicPOCT-GLUCOSE [id number] 12:26:00* Test Item Value Reference Range Comments POC-GLUCOSE METER (BEAKER) (test njvs=6219) 266 mg/dL 70-110 TESTED AT [address] [address] POCT-GLUCOSE [id number] 09:26:00* Test Item Value Reference Range Comments POC-GLUCOSE METER (BEAKER) (test xzav=8719) 290 mg/dL 70-110 TESTED AT [address] [place] [address] POCT-GLUCOSE [id number] 08:13:00* Test Item Value Reference Range Comments POC-GLUCOSE METER (BEAKER) (test ppbc=6340) 285 mg/dL 70-110 TESTED AT [facility] [address] [address] BASIC METABOLIC [id number] 03:41:00* Test Item Value Reference Range Comments SODIUM (BEAKER) (test xxnm=961) 128 meq/L 136-145 POTASSIUM (BEAKER) (test elyv=109) 4.2 meq/L 3.5-5.1 Specimen markedly hemolyzed CHLORIDE (BEAKER) (test fsfi=723) 98 meq/L 98-107 CO2 (BEAKER) (test pduk=322) < meq/L 22-29 BLOOD UREA NITROGEN (BEAKER) (test rzju=878) 20 mg/dL 7-21 CREATININE (BEAKER) (test ampe=724) 1.08 mg/dL 0.57-1.25 Specimen markedly hemolyzed GLUCOSE RANDOM (BEAKER) (test uvvr=116) 295 mg/dL 70-105 CALCIUM (BEAKER) (test gkte=783) 8.7 mg/dL 8.4-10.2 EGFR (BEAKER) (test wefc=8873) 74 mL/min/1.73 sq m ESTIMATED GFR IS NOT ACCURATE CREATININE CLEARANCE IN PREDICTING GLOMERULAR FILTRATION RATE. ESTIMATED GFR IS NOT APPLICABLE FOR DIALYSIS PATIENTS. HEPATIC FUNCTION [id number] 03:38:00* Test Item Value Reference Range Comments TOTAL PROTEIN (BEAKER) (test vkwo=755) 11.6 gm/dL 6.0-8.3 Specimen markedly hemolyzed ALBUMIN (BEAKER) (test ivjt=0676) 3.7 g/dL 3.5-5.0 Specimen markedly hemolyzed BILIRUBIN TOTAL (BEAKER) (test iylu=740) 0.4 mg/dL 0.2-1.2 Specimen markedly hemolyzed BILIRUBIN DIRECT (BEAKER) (test yzek=746) < mg/dL 0.1-0.5 Specimen markedly hemolyzed ALKALINE PHOSPHATASE (BEAKER) (test qpwh=725) 70 U/L 40-150 AST (SGOT) (BEAKER) (test wkef=631) 37 U/L 5-34 Specimen markedly hemolyzed ALT (SGPT) (BEAKER) (test tzwv=873) 20 U/L 6-55 Specimen markedly hemolyzed Specimen markedly lipemicLACTIC ACID, VENOUS, WHOLE [id number] 02:33:00* Test Item Value Reference Range Comments LACTATE BLOOD VENOUS (2) (BEAKER) (test wsny=8107) 1.2 mmol/L 0.5-2.2 Specimen slightly hemolyzed Effective 07/23/2015: Units/Reference Range ChangeNew: 0.5-2.2 mmol/L Previous: 5 -20 mg/dLSpecimen markedly [id number] 01:37:00* Test Item Value Reference Range Comments MAGNESIUM (BEAKER) (test qxbn=212) 4.4 mg/dL 1.6-2.6 Specimen markedly hemolyzed [id number] 01:37:00* Test Item Value Reference Range Comments PHOSPHORUS (BEAKER) (test inue=220) 2.2 mg/dL 2.3-4.7 Specimen markedly hemolyzed [id number] 01:37:00* Test Item Value Reference Range Comments LIPASE (BEAKER) (test gvch=306) 73 U/L 8-78 POCT-GLUCOSE [id number] 23:27:00* Test Item Value Reference Range Comments POC-GLUCOSE METER (BEAKER) (test ssvz=1979) 329 mg/dL 70-110 Notified JENNY RESENDEZ/TESTED AT [facility] [address] [address] LACTIC ACID, VENOUS, WHOLE [id number] 22:03:00* Test Item Value Reference Range Comments LACTATE BLOOD VENOUS (2) (BEAKER) (test alcd=6607) 1.5 mmol/L 0.5-2.2 Specimen slightly hemolyzed Effective 07/23/2015: Units/Reference Range ChangeNew: 0.5-2.2 mmol/L Previous: 5 -20 mg/dLSpecimen markedly lipemicCT, [id number] 21:51:00FINAL REPORT CT, ABDOMEN \\T\\ PELVIS, WITH IV CONTRAST INDICATION: "Abd pain, gastroenteritis or colitis suspectedpancreatitis" COMPARISON: CT abdomen and pelvis 06/02/2016 TECHNIQUE: [...] No acute abnormality of the solid abdominal viscera.Fatty liver. No acute abnormality of the hollow abdominal viscera.Normal appendix. No focal lytic or destructive bony process. IMPRESSION:No acute abnormality in the abdomen or pel vis. Signed: Sharona Interianoeport Verified Date/Time: 06/29/2017 21:51:53 R eading Location: [address] Transitional Reading Room Electronically sign ed by: SHARONA INTERIANO MD on 06/29/2017 09:[address], BRAIN, WITHOUT CONTRAST 2017-06-29 19:36:00Reason for exam:->BLOOD SUGAR PROBLEMWhat is the patient's sedation requirement?->No SedationFINAL REPORT CT head without contrast 06/29/2017 7:34 PM CLINICAL HISTORY: Headache, acute, norm neuro examBLOOD SUGAR PROBLEM TECHNIQUE: Axial noncontrast CT images [...] further evaluation with MRI is recommended. Signed: Donnell Juarez Verified Date/Time: 06/29/2017 19:36:58 Reading Location: [facility] Radiology Reading Room [id number] 19:35:00* Test Item Value Reference Range Comments MAGNESIUM (BEAKER) (test aaaw=849) 5.7 mg/dL 1.6-2.6 Specimen markedly hemolyzed BASIC METABOLIC [id number] 19:34:00* Test Item Value Reference Range Comments SODIUM (BEAKER) (test rrdu=263) 129 meq/L 136-145 POTASSIUM (BEAKER) (test suoy=345) 4.3 meq/L 3.5-5.1 Specimen markedly hemolyzed CHLORIDE (BEAKER) (test yvqv=580) 95 meq/L 98-107 CO2 (BEAKER) (test qmtt=350) < meq/L 22-29 BLOOD UREA NITROGEN (BEAKER) (test ralx=242) 21 mg/dL 7-21 CREATININE (BEAKER) (test kjeh=044) 1.12 mg/dL 0.57-1.25 Specimen markedly hemolyzed GLUCOSE RANDOM (BEAKER) (test rssy=002) 381 mg/dL 70-105 CALCIUM (BEAKER) (test vjut=348) 9.6 mg/dL 8.4-10.2 EGFR (BEAKER) (test mjjn=5875) 71 mL/min/1.73 sq m ESTIMATED GFR IS NOT ACCURATE CREATININE CLEARANCE IN PREDICTING GLOMERULAR FILTRATION RATE. ESTIMATED GFR IS NOT APPLICABLE FOR DIALYSIS PATIENTS. [id number] 19:33:00* Test Item Value Reference Range Comments PHOSPHORUS (BEAKER) (test sqjw=367) < mg/dL 2.3-4.7 Specimen markedly hemolyzed LACTIC ACID, VENOUS, WHOLE [id number] 19:30:00* Test Item Value Reference Range Comments LACTATE BLOOD VENOUS (2) (BEAKER) (test ryjn=0395) 2.6 mmol/L 0.5-2.2 Specimen slightly hemolyzed Effective 07/23/2015: Units/Reference Range ChangeNew: 0.5-2.2 mmol/L Previous: 5 -20 mg/dLSpecimen markedly lipemicPOCT-GLUCOSE [id number] 18:10:00* Test Item Value Reference Range Comments POC-GLUCOSE METER (BEAKER) (test dobz=6231) 439 mg/dL 70-110 TESTED AT [facility] [address] [address] [id number] 18:03:00* Test Item Value Reference Range Comments LIPASE (BEAKER) (test ghvi=598) > U/L 8-78 CREATINE KINASE (CK), TOTAL AND [id number] 17:42:00* Test Item Value Reference Range Comments CREATINE KINASE TOTAL (BEAKER) (test edwc=165) 140 U/L 29-200 CREATINE KINASE-MB (BEAKER) (test akkb=148) 2.2 ng/mL 0.0-6.6 CREATINE KINASE-MB INDEX (BEAKER) (test llcr=362) 1.6 % CK-MB Reference Range:<6.7 Normal6.7-10.0 Borderline>10.0 Abnormal TROPONIN [id number] 17:36:00* Test Item Value Reference Range Comments TROPONIN I (BEAKER) (test tmtm=059) 0.02 ng/mL 0.00-0.03 Troponin I (TnI) levels must be interpreted in the context of the presenting sym ptoms and the clinical findings. Elevated TnI levels indicate myocardial damage, but are not specific for ischemic heart disease. Elevated TnI levels are seen in patients with other cardiac conditions (including myocarditis and congestive h eart failure), and slight TnI elevations occur in patients with other conditions , including sepsis, renal failure, acidosis, acute neurological disease, and per sistent tachyarrhythmia.POCT-GLUCOSE [id number] 16:55:00* Test Item Value Reference Range Comments POC-GLUCOSE METER (BEAKER) (test ulsa=7704) > mg/dL 70-110 OUTSIDE MEASURING RANGETESTED AT [facility] [address] [address] CBC W/PLT COUNT & AUTO [id number] 16:52:00* Test Item Value Reference Range Comments WHITE BLOOD CELL COUNT (BEAKER) (test dldi=176) 4.8 K/ L 3.5-10.5 RED BLOOD CELL COUNT (BEAKER) (test soey=763) 4.29 M/ L 4.63-6.08 HEMOGLOBIN (BEAKER) (test odph=977) 13.8 GM/DL 13.7-17.5 HEMATOCRIT (BEAKER) (test wmey=020) 40.5 % 40.1-51.0 MEAN CORPUSCULAR VOLUME (BEAKER) (test yhkh=721) 94.4 fL 79.0-92.2 MEAN CORPUSCULAR HEMOGLOBIN (BEAKER) (test pavy=783) 32.2 pg 25.7-32.2 MEAN CORPUSCULAR HEMOGLOBIN CONC (BEAKER) (test qsws=973) 34.1 GM/DL 32.3-36.5 RED CELL DISTRIBUTION WIDTH (BEAKER) (test meil=165) 13.6 % 11.6-14.4 PLATELET COUNT (BEAKER) (test cxjk=659) 146 K/CU MM 150-450 MEAN PLATELET VOLUME (BEAKER) (test dfzt=279) 12.1 fL 9.4-12.4 NUCLEATED RED BLOOD CELLS (BEAKER) (test sijw=700) 1 /100 WBC 0-0 IMMATURE GRANULOCYTES-RELATIVE PERCENT (BEAKER) (test jafe=7749) 1 % 0-1 Washed RBC was done due to lipemia (High MCHC).(MANUAL DIFFERENTIAL)2017-06-29 16:52:00* Test Item Value Reference Range Comments NEUTROPHILS - REL (DIFF) (BEAKER) (test inqn=4061) 56 % LYMPHOCYTES - REL (DIFF) (BEAKER) (test hubk=8822) 31 % MONOCYTES - REL (DIFF) (BEAKER) (test glkn=8321) 6 % EOSINOPHILS - REL (DIFF) (BEAKER) (test gogp=3830) 2 % BASOPHILS - REL (DIFF) (BEAKER) (test meph=7956) 3 % PROMYELOCYTES-REL (DIFF) (BEAKER) (test qoaf=893) 1 % 0-0 ATYPICAL LYMPHOCYTE - REL (DIFF) (BEAKER) (test mzlk=931) 1 % 0-0 NEUTROPHILS - ABS (DIFF) (BEAKER) (test ixis=5805) 2.69 K/ L 1.80-8.00 LYMPHOCYTES - ABS (DIFF) (BEAKER) (test whus=3588) 1.49 K/ L 1.48-4.50 MONOCYTES - ABS (DIFF) (BEAKER) (test etrw=8380) 0.29 K/ L 0.00-1.30 EOSINOPHILS - ABS (DIFF) (BEAKER) (test ugop=5766) 0.10 K/ L 0.00-0.50 BASOPHILS - ABS (DIFF) (BEAKER) (test nsrc=8727) 0.14 K/ L 0.00-0.20 PROMYELOCYTES - ABS (DIFF) (BEAKER) (test nmwm=589) 0.05 K/ L 0.00-0.00 ATYPICAL LYMPHOCYTES - ABS (DIFF) (BEAKER) (test ydss=061) 0.05 K/ L 0.00-0.00 TOTAL COUNTED (BEAKER) (test cfyl=4168) 100 WBC MORPHOLOGY (BEAKER) (test klrz=867) Normal PLT MORPHOLOGY (BEAKER) (test riiy=299) Normal SPHEROCYTES (BEAKER) (test mhkt=064) 1+ few COMPREHENSIVE METABOLIC [id number] 16:41:00* Test Item Value Reference Range Comments TOTAL PROTEIN (BEAKER) (test nsgt=999) 12.8 gm/dL 6.0-8.3 Specimen markedly hemolyzed ALBUMIN (BEAKER) (test tjdg=8078) 4.0 g/dL 3.5-5.0 Specimen markedly hemolyzed ALKALINE PHOSPHATASE (BEAKER) (test sqme=618) 102 U/L 40-150 BILIRUBIN TOTAL (BEAKER) (test wast=395) 0.3 mg/dL 0.2-1.2 Specimen markedly hemolyzed SODIUM (BEAKER) (test bpgr=131) 121 meq/L 136-145 POTASSIUM (BEAKER) (test wpts=364) 5.5 meq/L 3.5-5.1 Specimen markedly hemolyzed CHLORIDE (BEAKER) (test nwte=425) 93 meq/L 98-107 CO2 (BEAKER) (test kmus=791) 19 meq/L 22-29 BLOOD UREA NITROGEN (BEAKER) (test twsr=706) 24 mg/dL 7-21 CREATININE (BEAKER) (test ouiy=916) 1.56 mg/dL 0.57-1.25 Specimen markedly hemolyzed GLUCOSE RANDOM (BEAKER) (test rtwv=709) 728 mg/dL 70-105 CALCIUM (BEAKER) (test rjjx=579) 9.3 mg/dL 8.4-10.2 AST (SGOT) (BEAKER) (test awsl=706) 47 U/L 5-34 Specimen markedly hemolyzed ALT (SGPT) (BEAKER) (test eqvk=940) 28 U/L 6-55 Specimen markedly hemolyzed EGFR (BEAKER) (test ieck=4488) 48 mL/min/1.73 sq m ESTIMATED GFR IS NOT ACCURATE CREATININE CLEARANCE IN PREDICTING GLOMERULAR FILTRATION RATE. ESTIMATED GFR IS NOT APPLICABLE FOR DIALYSIS PATIENTS. Specimen markedly lipemicRAD, CHEST, 1 VIEW, NON [id number] 16:35:00Reason for exam:->FEVERReason for exam:->EMESISReason for exam:->DIARRHEAShould this be performed at the bedside?->YesFINAL REPORT Comparison: 04/21/2017 TECHNIQUE: Single view of the chest FINDINGS: Lung volumes are low, grossly clear. Cardiac silhouette is within normal limits. Aortic calcifications are seen. No acute skeletal abnormality. Signed: Miguel Sahni MDReport Verified Date/Time: 06/29/2017 16:35:46 Reading Location: [facility] Reading Room B-TYPE NATRIURETIC FACTOR (BNP)2017-06-29 16:32:00* Test Item Value Reference Range Comments B-TYPE NATRIURETIC PEPTIDE (BEAKER) (test dfxb=233) < pg/mL 0-100 POCT-LACTIC ACID, [id number] 15:48:00* Test Item Value Reference Range Comments POC-LACTIC ACID, VENOUS (BEAKER) (test vlog=6950) 2.4 mmol/L 0.9-1.7 TESTED AT [facility] [address] [address] BLOOD GAS, [id number] 15:43:00* Test Item Value Reference Range Comments PH VENOUS (BEAKER) (test cyom=879) 7.38 7.32-7.42 PCO2 VENOUS (BEAKER) (test eyec=811) 46 mmHg 41-51 PO2 VENOUS (BEAKER) (test xtju=300) 34 mmHg 25-40 O2 SATURATION VENOUS (BEAKER) (test rnwq=219) 63.2 % 40.0-70.0 HCO3 VENOUS (BEAKER) (test wxmf=556) 26 mmol/L 21-29 BASE EXCESS VENOUS (BEAKER) (test esbl=306) 0.8 mmol/L -2.0-3.0 PATIENT TEMPERATURE (BEAKER) (test saev=2742) 37.0 C FIO2 (BEAKER) (test unsl=3825) 21.0 % URINALYSIS W/ REFLEX URINE [id number] 15:28:00* Test Item Value Reference Range Comments COLOR (BEAKER) (test vaqy=515) Light Yellow CLARITY (BEAKER) (test ltuq=330) Clear SPECIFIC GRAVITY UA (BEAKER) (test ilxo=383) 1.019 1.001-1.035 PH UA (BEAKER) (test yoat=093) 6.0 5.0-8.0 PROTEIN UA (BEAKER) (test skml=911) 10 mg/dL Negative GLUCOSE UA (BEAKER) (test rrlv=358) >1000 mg/dL Negative KETONES UA (BEAKER) (test frzx=086) Negative Negative BILIRUBIN UA (BEAKER) (test iybb=341) Negative Negative BLOOD UA (BEAKER) (test kccx=492) Negative Negative NITRITE UA (BEAKER) (test lfji=895) Negative Negative LEUKOCYTE ESTERASE UA (BEAKER) (test bifc=603) Negative Negative UROBILINOGEN UA (BEAKER) (test adqh=633) 0.2 mg/dL 0.2-1.0 RBC UA (BEAKER) (test wycw=436) 0 /HPF WBC UA (BEAKER) (test xwdv=908) < /HPF SQUAMOUS EPITHELIAL (BEAKER) (test lplc=577) < /HPF SOURCE(BEAKER) (test pcrn=2876) KETONE, [id number] 15:16:00* Test Item Value Reference Range Comments KETONES, BLOOD (BEAKER) (test khut=3471) 0.1 mmol/L <0.4 POCT-GLUCOSE [id number] 14:56:00* Test Item Value Reference Range Comments POC-GLUCOSE METER (BEAKER) (test ddtu=6098) > mg/dL 70-110 OUTSIDE MEASURING RANGETESTED AT [facility] [address] [address] RAD, CHEST, 1 VIEW, NON [id number] 14:57:00Reason for exam:->CHEST PAINFINAL REPORT TECHNIQUE: Frontal chest radiograph dated . CLINICAL HISTORY: Chest pain COMPARISON STUDY: Chest radiograph dated IMPRESSION:Lungs are clear. No pleural effusion or pneumothorax. Cardiom ediastinal silhouette is normal in size. No pulmonary edema. No fracture. Degene rative changes are seen in the spine. Signed: Rex Fontenot [facility] ed Date/Time: 04/21/2017 14:57:39 Reading Location: [facility] Radiology Reading Room TINE KINASE (CK), TOTAL AND [id number] 11:57:00* Test Item Value Reference Range Comments CREATINE KINASE TOTAL (BEAKER) (test fcag=381) 398 U/L 29-200 CREATINE KINASE-MB (BEAKER) (test euwd=865) 3.9 ng/mL 0.0-6.6 CREATINE KINASE-MB INDEX (BEAKER) (test wktj=648) 1.0 % CK-MB Reference Range:<6.7 Normal6.7-10.0 Borderline>10.0 Abnormal TROPONIN [id number] 11:57:00* Test Item Value Reference Range Comments TROPONIN I (BEAKER) (test hgrw=886) 0.02 ng/mL 0.00-0.03 Troponin I (TnI) levels must be interpreted in the context of the presenting sym ptoms and the clinical findings. Elevated TnI levels indicate myocardial damage, but are not specific for ischemic heart disease. Elevated TnI levels are seen in patients with other cardiac conditions (including myocarditis and congestive h eart failure), and slight TnI elevations occur in patients with other conditions , including sepsis, renal failure, acidosis, acute neurological disease, and per sistent tachyarrhythmia.B-TYPE NATRIURETIC FACTOR (BNP)2017-04-21 11:52:00* Test Item Value Reference Range Comments B-TYPE NATRIURETIC PEPTIDE (BEAKER) (test wjqz=309) 13 pg/mL 0-100 [id number] 11:49:00* Test Item Value Reference Range Comments MAGNESIUM (BEAKER) (test ryhf=101) 1.5 mg/dL 1.6-2.6 BASIC METABOLIC [id number] 11:49:00* Test Item Value Reference Range Comments SODIUM (BEAKER) (test fudo=702) 139 meq/L 136-145 POTASSIUM (BEAKER) (test cwzq=462) 3.1 meq/L 3.5-5.1 CHLORIDE (BEAKER) (test fkgd=840) 102 meq/L 98-107 CO2 (BEAKER) (test jnba=050) 26 meq/L 22-29 BLOOD UREA NITROGEN (BEAKER) (test frcl=778) 22 mg/dL 7-21 CREATININE (BEAKER) (test fzxb=945) 1.15 mg/dL 0.57-1.25 GLUCOSE RANDOM (BEAKER) (test ikbu=361) 255 mg/dL 70-105 CALCIUM (BEAKER) (test tmqs=129) 9.2 mg/dL 8.4-10.2 EGFR (BEAKER) (test akcj=2649) 68 mL/min/1.73 sq m ESTIMATED GFR IS NOT ACCURATE CREATININE CLEARANCE IN PREDICTING GLOMERULAR FILTRATION RATE. ESTIMATED GFR IS NOT APPLICABLE FOR DIALYSIS PATIENTS. PT/[id number] 11:43:00* Test Item Value Reference Range Comments PROTIME (BEAKER) (test uvdc=555) 14.5 seconds 11.7-14.7 INR (BEAKER) (test ziqd=533) 1.1 <=5.9 PARTIAL THROMBOPLASTIN TIME (BEAKER) (test ywda=123) 24.5 seconds 22.5-36.0 RECOMMENDED COUMADIN/WARFARIN INR THERAPY RANGESSTANDARD DOSE: 2.0 - 3.0 Inclu josé: PROPHYLAXIS for venous thrombosis, systemic embolization; TREATMENT for angelika ous thrombosis and/or pulmonary embolus.HIGH RISK: Target INR is 2.5-3.5 for pat ients with mechanical heart valves.CBC W/PLT COUNT & AUTO [id number] 11:34:00* Test Item Value Reference Range Comments WHITE BLOOD CELL COUNT (BEAKER) (test heti=288) 6.5 K/ L 3.5-10.5 RED BLOOD CELL COUNT (BEAKER) (test ynei=379) 5.01 M/ L 4.63-6.08 HEMOGLOBIN (BEAKER) (test iaxg=852) 15.5 GM/DL 13.7-17.5 HEMATOCRIT (BEAKER) (test tglj=883) 43.7 % 40.1-51.0 MEAN CORPUSCULAR VOLUME (BEAKER) (test tpwj=713) 87.2 fL 79.0-92.2 MEAN CORPUSCULAR HEMOGLOBIN (BEAKER) (test ezfe=181) 30.9 pg 25.7-32.2 MEAN CORPUSCULAR HEMOGLOBIN CONC (BEAKER) (test elrn=127) 35.5 GM/DL 32.3-36.5 RED CELL DISTRIBUTION WIDTH (BEAKER) (test gwnn=558) 12.9 % 11.6-14.4 PLATELET COUNT (BEAKER) (test frzv=761) 157 K/CU MM 150-450 MEAN PLATELET VOLUME (BEAKER) (test hbcs=548) 11.9 fL 9.4-12.4 NUCLEATED RED BLOOD CELLS (BEAKER) (test dbgn=722) 0 /100 WBC 0-0 NEUTROPHILS RELATIVE PERCENT (BEAKER) (test fzvq=879) 65 % LYMPHOCYTES RELATIVE PERCENT (BEAKER) (test mext=344) 24 % MONOCYTES RELATIVE PERCENT (BEAKER) (test vtfb=652) 9 % EOSINOPHILS RELATIVE PERCENT (BEAKER) (test ybiy=319) 1 % BASOPHILS RELATIVE PERCENT (BEAKER) (test ebfl=786) 0 % NEUTROPHILS ABSOLUTE COUNT (BEAKER) (test lllr=607) 4.24 K/ L 1.78-5.38 LYMPHOCYTES ABSOLUTE COUNT (BEAKER) (test ggbn=432) 1.56 K/ L 1.32-3.57 MONOCYTES ABSOLUTE COUNT (BEAKER) (test oqto=563) 0.57 K/ L 0.30-0.82 EOSINOPHILS ABSOLUTE COUNT (BEAKER) (test vhvl=421) 0.06 K/ L 0.04-0.54 BASOPHILS ABSOLUTE COUNT (BEAKER) (test ugbb=628) 0.02 K/ L 0.01-0.08 IMMATURE GRANULOCYTES-RELATIVE PERCENT (BEAKER) (test aixc=0796) 1 % 0-1 PANCREATIC ELASTASE, [id number] 13:46:00* Test Item Value Reference Range Comments SCAN RESULT (test jkxe=[id number]) POCT-GLUCOSE [id number] 09:25:00* Test Item Value Reference Range Comments POC-GLUCOSE METER (BEAKER) (test qikl=9145) 146 mg/dL 70-110 TESTED AT [facility] [address] [address] [id number] 05:58:00* Test Item Value Reference Range Comments MAGNESIUM (BEAKER) (test mutn=804) 1.4 mg/dL 1.6-2.6 BASIC METABOLIC [id number] 05:58:00* Test Item Value Reference Range Comments SODIUM (BEAKER) (test drnp=635) 143 meq/L 136-145 POTASSIUM (BEAKER) (test rbgj=630) 3.3 meq/L 3.5-5.1 CHLORIDE (BEAKER) (test zjen=075) 112 meq/L 98-107 CO2 (BEAKER) (test vysv=332) 21 meq/L 22-29 BLOOD UREA NITROGEN (BEAKER) (test nolg=848) 6 mg/dL 7-21 CREATININE (BEAKER) (test ufam=820) 0.82 mg/dL 0.57-1.25 GLUCOSE RANDOM (BEAKER) (test gpjk=391) 135 mg/dL 70-105 CALCIUM (BEAKER) (test dhnb=721) 8.5 mg/dL 8.4-10.2 EGFR (BEAKER) (test yerb=4307) 102 mL/min/1.73 sq m ESTIMATED GFR IS NOT ACCURATE CREATININE CLEARANCE IN PREDICTING GLOMERULAR FILTRATION RATE. ESTIMATED GFR IS NOT APPLICABLE FOR DIALYSIS PATIENTS. POCT-GLUCOSE [id number] 21:22:00* Test Item Value Reference Range Comments POC-GLUCOSE METER (BEAKER) (test rbeo=9691) 219 mg/dL 70-110 TESTED AT [place] [id number] POCT-GLUCOSE [id number] 16:32:00* Test Item Value Reference Range Comments POC-GLUCOSE METER (BEAKER) (test ufgx=8742) 184 mg/dL 70-110 TESTED AT [address] [address] POCT-GLUCOSE [id number] 14:08:00* Test Item Value Reference Range Comments POC-GLUCOSE METER (BEAKER) (test zlqr=1597) 168 mg/dL 70-110 TESTED AT [address] [address] BASIC METABOLIC [id number] 08:54:00* Test Item Value Reference Range Comments SODIUM (BEAKER) (test ylcj=236) 142 meq/L 136-145 POTASSIUM (BEAKER) (test grlh=598) 3.2 meq/L 3.5-5.1 CHLORIDE (BEAKER) (test vyog=299) 110 meq/L 98-107 CO2 (BEAKER) (test xdso=457) 24 meq/L 22-29 BLOOD UREA NITROGEN (BEAKER) (test pyxh=478) 4 mg/dL 7-21 CREATININE (BEAKER) (test gfkf=171) 0.79 mg/dL 0.57-1.25 GLUCOSE RANDOM (BEAKER) (test gwzj=778) 146 mg/dL 70-105 CALCIUM (BEAKER) (test tiru=643) 9.0 mg/dL 8.4-10.2 EGFR (BEAKER) (test ourz=8702) 106 mL/min/1.73 sq m ESTIMATED GFR IS NOT ACCURATE CREATININE CLEARANCE IN PREDICTING GLOMERULAR FILTRATION RATE. ESTIMATED GFR IS NOT APPLICABLE FOR DIALYSIS PATIENTS. POCT-GLUCOSE [id number] 08:29:00* Test Item Value Reference Range Comments POC-GLUCOSE METER (BEAKER) (test ejbq=5199) 142 mg/dL 70-110 TESTED AT [place] [id number] POCT-GLUCOSE [id number] 21:33:00* Test Item Value Reference Range Comments POC-GLUCOSE METER (BEAKER) (test idyn=3370) 126 mg/dL 70-110 TESTED AT [address] [address] POCT-GLUCOSE [id number] 17:15:00* Test Item Value Reference Range Comments POC-GLUCOSE METER (BEAKER) (test zvgm=0370) 147 mg/dL 70-110 TESTED AT [address] [address] OCCULT BLOOD, [id number] 13:29:00* Test Item Value Reference Range Comments FECAL OCCULT BLOOD (BEAKER) (test gtfu=620) Negative Negative POCT-GLUCOSE [id number] 12:38:00* Test Item Value Reference Range Comments POC-GLUCOSE METER (BEAKER) (test sgdx=2198) 173 mg/dL 70-110 TESTED AT [address] [address] BASIC METABOLIC [id number] 11:11:00* Test Item Value Reference Range Comments SODIUM (BEAKER) (test wynp=643) 140 meq/L 136-145 POTASSIUM (BEAKER) (test celu=386) 3.7 meq/L 3.5-5.1 CHLORIDE (BEAKER) (test weih=516) 106 meq/L 98-107 CO2 (BEAKER) (test qfde=163) 24 meq/L 22-29 BLOOD UREA NITROGEN (BEAKER) (test wcye=390) 4 mg/dL 7-21 CREATININE (BEAKER) (test zpxj=090) 0.78 mg/dL 0.57-1.25 GLUCOSE RANDOM (BEAKER) (test oikn=466) 178 mg/dL 70-105 CALCIUM (BEAKER) (test duqr=860) 9.0 mg/dL 8.4-10.2 EGFR (BEAKER) (test bkaa=7623) 108 mL/min/1.73 sq m ESTIMATED GFR IS NOT ACCURATE CREATININE CLEARANCE IN PREDICTING GLOMERULAR FILTRATION RATE. ESTIMATED GFR IS NOT APPLICABLE FOR DIALYSIS PATIENTS. CBC W/PLT COUNT & AUTO [id number] 11:03:00* Test Item Value Reference Range Comments WHITE BLOOD CELL COUNT (BEAKER) (test aaoc=459) 4.5 K/ L 4.0-10.0 RED BLOOD CELL COUNT (BEAKER) (test cxxv=300) 3.95 M/ L 4.20-5.80 HEMOGLOBIN (BEAKER) (test kgxx=281) 13.7 GM/DL 13.0-16.8 HEMATOCRIT (BEAKER) (test niid=582) 36.4 % 40.0-50.0 MEAN CORPUSCULAR VOLUME (BEAKER) (test oipa=814) 92.0 fL 82.0-98.0 MEAN CORPUSCULAR HEMOGLOBIN (BEAKER) (test bntc=175) 34.7 pg 27.0-33.0 MEAN CORPUSCULAR HEMOGLOBIN CONC (BEAKER) (test wutb=221) 37.8 GM/DL 32.0-36.0 RED CELL DISTRIBUTION WIDTH (BEAKER) (test kjqa=557) 12.2 % 10.3-14.2 PLATELET COUNT (BEAKER) (test qjly=503) 102 K/CU MM 150-430 MEAN PLATELET VOLUME (BEAKER) (test zoed=324) 8.8 fL 6.5-10.5 NUCLEATED RED BLOOD CELLS (BEAKER) (test zixf=285) 0 /100 WBC 0-0 NEUTROPHILS RELATIVE PERCENT (BEAKER) (test vvls=170) 66 % LYMPHOCYTES RELATIVE PERCENT (BEAKER) (test sety=500) 25 % MONOCYTES RELATIVE PERCENT (BEAKER) (test tadq=089) 7 % EOSINOPHILS RELATIVE PERCENT (BEAKER) (test efvf=468) 2 % BASOPHILS RELATIVE PERCENT (BEAKER) (test zwqd=299) 0 % NEUTROPHILS ABSOLUTE COUNT (BEAKER) (test axfa=446) 2.98 K/ L 1.80-8.00 LYMPHOCYTES ABSOLUTE COUNT (BEAKER) (test gwlk=741) 1.12 K/ L 1.48-4.50 MONOCYTES ABSOLUTE COUNT (BEAKER) (test wgvm=737) 0.31 K/ L 0.00-1.30 EOSINOPHILS ABSOLUTE COUNT (BEAKER) (test vrhj=600) 0.11 K/ L 0.00-0.50 BASOPHILS ABSOLUTE COUNT (BEAKER) (test nvgo=426) 0.01 K/ L 0.00-0.20 0.00POCT-GLUCOSE [id number] 09:07:00* Test Item Value Reference Range Comments POC-GLUCOSE METER (BEAKER) (test inyq=6012) 149 mg/dL 70-110 TESTED AT [address] [address] POCT-GLUCOSE [id number] 22:09:00* Test Item Value Reference Range Comments POC-GLUCOSE METER (BEAKER) (test sglj=9382) 145 mg/dL 70-110 TESTED AT [address] [address] POCT-GLUCOSE [id number] 17:19:00* Test Item Value Reference Range Comments POC-GLUCOSE METER (BEAKER) (test quob=5145) 104 mg/dL 70-110 TESTED AT [address] [address] POCT-GLUCOSE [id number] 12:34:00* Test Item Value Reference Range Comments POC-GLUCOSE METER (BEAKER) (test nwlq=4355) 222 mg/dL 70-110 TESTED AT [address] [address] POCT-GLUCOSE [id number] 09:53:00* Test Item Value Reference Range Comments POC-GLUCOSE METER (BEAKER) (test rdbh=9871) 130 mg/dL 70-110 TESTED AT [address] [address] POCT-GLUCOSE [id number] 20:51:00* Test Item Value Reference Range Comments POC-GLUCOSE METER (BEAKER) (test twhy=0850) 157 mg/dL 70-110 TESTED AT [address] [address] POCT-GLUCOSE [id number] 18:45:00* Test Item Value Reference Range Comments POC-GLUCOSE METER (BEAKER) (test wzdo=3165) 136 mg/dL 70-110 TESTED AT [address] [place] [address] CLOSTRIDIUM DIFFICILE TOXIN [id number] 16:25:00* Test Item Value Reference Range Comments CLOSTRIDIUM DIFFICILE TOXIN, PCR (BEAKER) (test yesa=0738) Not Detected Not Detected This qualitative real-time polymerase chain reaction assay detects the tcdB gene , encoded on the C.difficile pathogenicity locus (PaLoc). The product of tcdB, toxin B, is a cytotoxin essential for causing C.difficile-associated disease (CD AD) and is found in virtually all toxigenic C.difficile.This assay is performed for patients suspected of having either community-acquired or nosocomial CDAD. Accordingly, only symptomatic patients should be tested and formed stools will b e rejected unless ileus is present (i.e., specified when ordering). Patients ma y be colonized with toxigenic C.difficile strains not causing active disease; th erefore, clinical correlation is needed when deciding how to manage patients wit h a positive test result.The assay has not been validated as a test of cure as a mplifiable nucleic acid may persist after effective treatment; therefore, follow -up testing of a positive result is not recommended.[id number] 12:46:00* Test Item Value Reference Range Comments LIPASE (BEAKER) (test owrb=145) 33 U/L 8-78 [id number] 12:46:00* Test Item Value Reference Range Comments AMYLASE (BEAKER) (test qzxm=519) 62 U/L 25-125 HEPATIC FUNCTION [id number] 12:46:00* Test Item Value Reference Range Comments TOTAL PROTEIN (BEAKER) (test cbxd=009) 6.2 gm/dL 6.0-8.3 ALBUMIN (BEAKER) (test tqsv=1232) 3.3 g/dL 3.5-5.0 BILIRUBIN TOTAL (BEAKER) (test ehzr=687) 0.6 mg/dL 0.2-1.2 BILIRUBIN DIRECT (BEAKER) (test xxae=430) 0.3 mg/dL 0.1-0.5 ALKALINE PHOSPHATASE (BEAKER) (test sshw=438) 63 U/L 40-150 AST (SGOT) (BEAKER) (test venj=042) 12 U/L 5-34 ALT (SGPT) (BEAKER) (test vtbj=223) 19 U/L 6-55 POCT-GLUCOSE [id number] 11:54:00* Test Item Value Reference Range Comments POC-GLUCOSE METER (BEAKER) (test axya=3569) 167 mg/dL 70-110 TESTED AT [facility] [address] [facility] [address] CBC W/PLT COUNT & AUTO [id number] 06:09:00* Test Item Value Reference Range Comments WHITE BLOOD CELL COUNT (BEAKER) (test pkvv=988) 4.1 K/ L 4.0-10.0 RED BLOOD CELL COUNT (BEAKER) (test icsm=477) 4.22 M/ L 4.20-5.80 HEMOGLOBIN (BEAKER) (test olch=540) 13.9 GM/DL 13.0-16.8 HEMATOCRIT (BEAKER) (test yyov=350) 39.5 % 40.0-50.0 MEAN CORPUSCULAR VOLUME (BEAKER) (test vozv=461) 93.6 fL 82.0-98.0 MEAN CORPUSCULAR HEMOGLOBIN (BEAKER) (test kmzm=307) 32.9 pg 27.0-33.0 MEAN CORPUSCULAR HEMOGLOBIN CONC (BEAKER) (test nhor=851) 35.2 GM/DL 32.0-36.0 RED CELL DISTRIBUTION WIDTH (BEAKER) (test tnjq=183) 12.5 % 10.3-14.2 PLATELET COUNT (BEAKER) (test mcqx=428) 95 K/CU MM 150-430 MEAN PLATELET VOLUME (BEAKER) (test lhye=367) 8.9 fL 6.5-10.5 NUCLEATED RED BLOOD CELLS (BEAKER) (test yzug=423) 0 /100 WBC 0-0 NEUTROPHILS RELATIVE PERCENT (BEAKER) (test gxxe=883) 53 % LYMPHOCYTES RELATIVE PERCENT (BEAKER) (test xqqs=513) 32 % MONOCYTES RELATIVE PERCENT (BEAKER) (test pavn=333) 10 % EOSINOPHILS RELATIVE PERCENT (BEAKER) (test dqod=710) 4 % BASOPHILS RELATIVE PERCENT (BEAKER) (test zngv=274) 0 % NEUTROPHILS ABSOLUTE COUNT (BEAKER) (test rbgj=913) 2.19 K/ L 1.80-8.00 LYMPHOCYTES ABSOLUTE COUNT (BEAKER) (test zxsm=880) 1.33 K/ L 1.48-4.50 MONOCYTES ABSOLUTE COUNT (BEAKER) (test tldw=780) 0.41 K/ L 0.00-1.30 EOSINOPHILS ABSOLUTE COUNT (BEAKER) (test lcin=805) 0.17 K/ L 0.00-0.50 BASOPHILS ABSOLUTE COUNT (BEAKER) (test fdgs=350) 0.00 K/ L 0.00-0.20 0.00BASIC METABOLIC [id number] 05:43:00* Test Item Value Reference Range Comments SODIUM (BEAKER) (test pknh=913) 140 meq/L 136-145 POTASSIUM (BEAKER) (test ujmx=292) 3.3 meq/L 3.5-5.1 CHLORIDE (BEAKER) (test vlqf=761) 108 meq/L 98-107 CO2 (BEAKER) (test nxzs=238) 23 meq/L 22-29 BLOOD UREA NITROGEN (BEAKER) (test fafh=782) 6 mg/dL 7-21 CREATININE (BEAKER) (test xdnm=645) 0.74 mg/dL 0.57-1.25 GLUCOSE RANDOM (BEAKER) (test gfkr=237) 119 mg/dL 70-105 CALCIUM (BEAKER) (test hbom=854) 8.7 mg/dL 8.4-10.2 EGFR (BEAKER) (test nmvc=9671) 114 mL/min/1.73 sq m ESTIMATED GFR IS NOT ACCURATE CREATININE CLEARANCE IN PREDICTING GLOMERULAR FILTRATION RATE. ESTIMATED GFR IS NOT APPLICABLE FOR DIALYSIS PATIENTS. POCT-GLUCOSE [id number] 21:25:00* Test Item Value Reference Range Comments POC-GLUCOSE METER (BEAKER) (test uiph=4450) 147 mg/dL 70-110 TESTED AT [facility] [address] [facility] [address] POCT-GLUCOSE [id number] 18:26:00* Test Item Value Reference Range Comments POC-GLUCOSE METER (BEAKER) (test pzar=2681) 193 mg/dL 70-110 TESTED AT [place] [id number] [facility] [address] [id number] 07:43:00* Test Item Value Reference Range Comments PHOSPHORUS (BEAKER) (test crgr=024) 3.4 mg/dL 2.3-4.7 [id number] 07:43:00* Test Item Value Reference Range Comments MAGNESIUM (BEAKER) (test cxgi=084) 1.7 mg/dL 1.6-2.6 BASIC METABOLIC [id number] 07:43:00* Test Item Value Reference Range Comments SODIUM (BEAKER) (test vius=329) 139 meq/L 136-145 POTASSIUM (BEAKER) (test bznb=244) 3.6 meq/L 3.5-5.1 CHLORIDE (BEAKER) (test zmpn=043) 108 meq/L 98-107 CO2 (BEAKER) (test bfjt=549) 23 meq/L 22-29 BLOOD UREA NITROGEN (BEAKER) (test lopt=461) 9 mg/dL 7-21 CREATININE (BEAKER) (test qkek=015) 0.76 mg/dL 0.57-1.25 GLUCOSE RANDOM (BEAKER) (test hiqc=607) 123 mg/dL 70-105 CALCIUM (BEAKER) (test vdnv=123) 8.4 mg/dL 8.4-10.2 EGFR (BEAKER) (test jngm=2978) 111 mL/min/1.73 sq m ESTIMATED GFR IS NOT ACCURATE CREATININE CLEARANCE IN PREDICTING GLOMERULAR FILTRATION RATE. ESTIMATED GFR IS NOT APPLICABLE FOR DIALYSIS PATIENTS. [id number] 07:43:00* Test Item Value Reference Range Comments LIPASE (BEAKER) (test kiye=241) 56 U/L 8-78 POCT-GLUCOSE [id number] 07:06:00* Test Item Value Reference Range Comments POC-GLUCOSE METER (BEAKER) (test xpkh=4085) 127 mg/dL 70-110 TESTED AT [address] [address] POCT-GLUCOSE [id number] 21:31:00* Test Item Value Reference Range Comments POC-GLUCOSE METER (BEAKER) (test akuw=7865) 140 mg/dL 70-110 TESTED AT [place] [id number] [facility] [address] POCT-GLUCOSE [id number] 18:57:00* Test Item Value Reference Range Comments POC-GLUCOSE METER (BEAKER) (test bwzf=4250) 139 mg/dL 70-110 TESTED AT [address] [address] POCT-GLUCOSE [id number] 12:25:00* Test Item Value Reference Range Comments POC-GLUCOSE METER (BEAKER) (test ejhx=1079) 138 mg/dL 70-110 TESTED AT [facility] [address] [facility] [address] POCT-GLUCOSE [id number] 08:48:00* Test Item Value Reference Range Comments POC-GLUCOSE METER (BEAKER) (test wars=0253) 129 mg/dL 70-110 TESTED AT [facility] [address] [facility] [address] [id number] 05:24:00* Test Item Value Reference Range Comments MAGNESIUM (BEAKER) (test ekdd=011) 1.6 mg/dL 1.6-2.6 BASIC METABOLIC [id number] 05:24:00* Test Item Value Reference Range Comments SODIUM (BEAKER) (test zthh=038) 140 meq/L 136-145 POTASSIUM (BEAKER) (test ldzp=922) 3.6 meq/L 3.5-5.1 CHLORIDE (BEAKER) (test eruy=922) 109 meq/L 98-107 CO2 (BEAKER) (test ejbe=058) 24 meq/L 22-29 BLOOD UREA NITROGEN (BEAKER) (test zmio=326) 16 mg/dL 7-21 CREATININE (BEAKER) (test axad=409) 0.95 mg/dL 0.57-1.25 GLUCOSE RANDOM (BEAKER) (test ltrq=170) 134 mg/dL 70-105 CALCIUM (BEAKER) (test uclj=453) 8.4 mg/dL 8.4-10.2 EGFR (BEAKER) (test axys=2958) 86 mL/min/1.73 sq m ESTIMATED GFR IS NOT ACCURATE CREATININE CLEARANCE IN PREDICTING GLOMERULAR FILTRATION RATE. ESTIMATED GFR IS NOT APPLICABLE FOR DIALYSIS PATIENTS. HEPATIC FUNCTION [id number] 05:24:00* Test Item Value Reference Range Comments TOTAL PROTEIN (BEAKER) (test hyeg=890) 5.6 gm/dL 6.0-8.3 ALBUMIN (BEAKER) (test oqkb=2053) 3.1 g/dL 3.5-5.0 BILIRUBIN TOTAL (BEAKER) (test ntrr=340) 0.7 mg/dL 0.2-1.2 BILIRUBIN DIRECT (BEAKER) (test vboi=173) 0.3 mg/dL 0.1-0.5 ALKALINE PHOSPHATASE (BEAKER) (test ivbb=855) 53 U/L 40-150 AST (SGOT) (BEAKER) (test zogt=461) 15 U/L 5-34 ALT (SGPT) (BEAKER) (test nawo=081) 32 U/L 6-55 [id number] 05:24:00* Test Item Value Reference Range Comments LIPASE (BEAKER) (test osqh=281) 480 U/L 8-78 POCT-GLUCOSE [id number] 22:11:00* Test Item Value Reference Range Comments POC-GLUCOSE METER (BEAKER) (test ztod=7103) 153 mg/dL 70-110 TESTED AT [address] [address] POCT-GLUCOSE [id number] 17:42:00* Test Item Value Reference Range Comments POC-GLUCOSE METER (BEAKER) (test rdri=8571) 154 mg/dL 70-110 TESTED AT [address] [address] POCT-GLUCOSE [id number] 12:09:00* Test Item Value Reference Range Comments POC-GLUCOSE METER (BEAKER) (test aqlu=8813) 175 mg/dL 70-110 TESTED AT [address] [address] CBC W/PLT COUNT & AUTO [id number] 10:11:00* Test Item Value Reference Range Comments WHITE BLOOD CELL COUNT (BEAKER) (test kvtm=163) 10.7 K/ L 4.0-10.0 RED BLOOD CELL COUNT (BEAKER) (test vzzy=693) 5.16 M/ L 4.20-5.80 HEMOGLOBIN (BEAKER) (test gmwm=686) 15.9 GM/DL 13.0-16.8 HEMATOCRIT (BEAKER) (test eass=197) 47.7 % 40.0-50.0 MEAN CORPUSCULAR VOLUME (BEAKER) (test prls=045) 92.5 fL 82.0-98.0 MEAN CORPUSCULAR HEMOGLOBIN (BEAKER) (test mopc=004) 30.9 pg 27.0-33.0 MEAN CORPUSCULAR HEMOGLOBIN CONC (BEAKER) (test rdtb=549) 33.4 GM/DL 32.0-36.0 RED CELL DISTRIBUTION WIDTH (BEAKER) (test yobw=848) 12.7 % 10.3-14.2 PLATELET COUNT (BEAKER) (test hcuj=765) 129 K/CU MM 150-430 MEAN PLATELET VOLUME (BEAKER) (test tamo=033) 8.6 fL 6.5-10.5 NUCLEATED RED BLOOD CELLS (BEAKER) (test uqmy=182) 0 /100 WBC 0-0 NEUTROPHILS RELATIVE PERCENT (BEAKER) (test jowy=288) 84 % LYMPHOCYTES RELATIVE PERCENT (BEAKER) (test dkco=610) 11 % MONOCYTES RELATIVE PERCENT (BEAKER) (test hysn=533) 5 % EOSINOPHILS RELATIVE PERCENT (BEAKER) (test jbkb=355) 0 % BASOPHILS RELATIVE PERCENT (BEAKER) (test cipy=927) 0 % NEUTROPHILS ABSOLUTE COUNT (BEAKER) (test ztgd=433) 8.93 K/ L 1.80-8.00 LYMPHOCYTES ABSOLUTE COUNT (BEAKER) (test tefb=247) 1.12 K/ L 1.48-4.50 MONOCYTES ABSOLUTE COUNT (BEAKER) (test amvv=544) 0.58 K/ L 0.00-1.30 EOSINOPHILS ABSOLUTE COUNT (BEAKER) (test euik=949) 0.04 K/ L 0.00-0.50 BASOPHILS ABSOLUTE COUNT (BEAKER) (test fjce=220) 0.02 K/ L 0.00-0.20 0.00POCT-GLUCOSE [id number] 08:17:00* Test Item Value Reference Range Comments POC-GLUCOSE METER (BEAKER) (test maah=1376) 203 mg/dL 70-110 TESTED AT [facility] [address] [facility] [address] [id number] 07:11:00* Test Item Value Reference Range Comments LIPASE (BEAKER) (test clwj=268) > U/L 8-78 [id number] 07:02:00* Test Item Value Reference Range Comments MAGNESIUM (BEAKER) (test nkfi=061) 1.9 mg/dL 1.6-2.6 BASIC METABOLIC [id number] 07:02:00* Test Item Value Reference Range Comments SODIUM (BEAKER) (test bkus=031) 138 meq/L 136-145 POTASSIUM (BEAKER) (test tmkt=642) 4.3 meq/L 3.5-5.1 CHLORIDE (BEAKER) (test ulpk=228) 107 meq/L 98-107 CO2 (BEAKER) (test vehh=725) 20 meq/L 22-29 BLOOD UREA NITROGEN (BEAKER) (test pmrk=705) 12 mg/dL 7-21 CREATININE (BEAKER) (test hxgo=216) 1.01 mg/dL 0.57-1.25 GLUCOSE RANDOM (BEAKER) (test rqhy=852) 207 mg/dL 70-105 CALCIUM (BEAKER) (test ovaq=903) 9.3 mg/dL 8.4-10.2 EGFR (BEAKER) (test vdfq=8042) 80 mL/min/1.73 sq m ESTIMATED GFR IS NOT ACCURATE CREATININE CLEARANCE IN PREDICTING GLOMERULAR FILTRATION RATE. ESTIMATED GFR IS NOT APPLICABLE FOR DIALYSIS PATIENTS. HEPATIC FUNCTION [id number] 07:02:00* Test Item Value Reference Range Comments TOTAL PROTEIN (BEAKER) (test ckow=450) 7.2 gm/dL 6.0-8.3 ALBUMIN (BEAKER) (test pqqh=8541) 4.0 g/dL 3.5-5.0 BILIRUBIN TOTAL (BEAKER) (test lnry=959) 1.3 mg/dL 0.2-1.2 BILIRUBIN DIRECT (BEAKER) (test yamo=530) 0.5 mg/dL 0.1-0.5 ALKALINE PHOSPHATASE (BEAKER) (test osaz=650) 83 U/L 40-150 AST (SGOT) (BEAKER) (test wljo=568) 43 U/L 5-34 ALT (SGPT) (BEAKER) (test tjst=169) 63 U/L 6-55 POCT-GLUCOSE [id number] 22:05:00* Test Item Value Reference Range Comments POC-GLUCOSE METER (BEAKER) (test jdca=8324) 156 mg/dL 70-110 TESTED AT [facility] [address] [facility] [address] POCT-GLUCOSE [id number] 22:05:00* Test Item Value Reference Range Comments POC-GLUCOSE METER (BEAKER) (test wacl=7741) 150 mg/dL 70-110 TESTED AT [facility] [address] [facility] [address] TISSUE [id number] 17:38:00Surgical Pathology Report Case: [id number] Authorizing Provider: Madison Guzman MD Ordering Provider: Madison Guzman MD Ordering Location: [address] Collected: 06/21/2016 1803 Service Pathologist: Odilia Head, Received: 06/22/2016 0103 Specimen: Bio psy, Gastric STOMACH, ENDOSCOPIC BIOPSY: - 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 CG/ewPERFORMEDThe following special studies were perfor med on this case and the interpretation is incorporated in the diagnostic report above:[id number] 17:05:00* Test Item Value Reference Range Comments POC-GLUCOSE METER (BEAKER) (test hduw=2368) 218 mg/dL 70-110 TESTED AT [facility] [address] [facility] [address] POCT-GLUCOSE [id number] 12:56:00* Test Item Value Reference Range Comments POC-GLUCOSE METER (BEAKER) (test evbx=6955) 149 mg/dL 70-110 TESTED AT [place] [id number] [facility] [address] CBC W/PLT COUNT & AUTO [id number] 09:05:00* Test Item Value Reference Range Comments WHITE BLOOD CELL COUNT (BEAKER) (test xmaw=598) 3.6 K/ L 4.0-10.0 RED BLOOD CELL COUNT (BEAKER) (test dehx=557) 4.29 M/ L 4.20-5.80 HEMOGLOBIN (BEAKER) (test bnac=518) 13.8 GM/DL 13.0-16.8 HEMATOCRIT (BEAKER) (test jxbn=685) 39.6 % 40.0-50.0 MEAN CORPUSCULAR VOLUME (BEAKER) (test yksp=375) 92.4 fL 82.0-98.0 MEAN CORPUSCULAR HEMOGLOBIN (BEAKER) (test dgyx=882) 32.3 pg 27.0-33.0 MEAN CORPUSCULAR HEMOGLOBIN CONC (BEAKER) (test jvln=860) 35.0 GM/DL 32.0-36.0 RED CELL DISTRIBUTION WIDTH (BEAKER) (test psan=268) 13.8 % 10.3-14.2 PLATELET COUNT (BEAKER) (test ldsy=399) 119 K/CU MM 150-430 MEAN PLATELET VOLUME (BEAKER) (test lcis=758) 8.6 fL 6.5-10.5 NUCLEATED RED BLOOD CELLS (BEAKER) (test fbse=003) 0 /100 WBC 0-0 NEUTROPHILS RELATIVE PERCENT (BEAKER) (test dgzb=968) 48 % LYMPHOCYTES RELATIVE PERCENT (BEAKER) (test brkt=655) 40 % MONOCYTES RELATIVE PERCENT (BEAKER) (test jotm=870) 8 % EOSINOPHILS RELATIVE PERCENT (BEAKER) (test wddx=190) 3 % BASOPHILS RELATIVE PERCENT (BEAKER) (test flku=542) 1 % NEUTROPHILS ABSOLUTE COUNT (BEAKER) (test flse=791) 1.71 K/ L 1.80-8.00 LYMPHOCYTES ABSOLUTE COUNT (BEAKER) (test atra=253) 1.45 K/ L 1.48-4.50 MONOCYTES ABSOLUTE COUNT (BEAKER) (test deoj=760) 0.30 K/ L 0.00-1.30 EOSINOPHILS ABSOLUTE COUNT (BEAKER) (test ezfo=933) 0.10 K/ L 0.00-0.50 BASOPHILS ABSOLUTE COUNT (BEAKER) (test ynjz=052) 0.04 K/ L 0.00-0.20 0.00POCT-GLUCOSE [id number] 07:54:00* Test Item Value Reference Range Comments POC-GLUCOSE METER (BEAKER) (test gdap=2700) 139 mg/dL 70-110 TESTED AT [facility] [address] [facility] [address] [id number] 06:50:00* Test Item Value Reference Range Comments MAGNESIUM (BEAKER) (test ktfw=480) 2.0 mg/dL 1.6-2.6 BASIC METABOLIC [id number] 06:50:00* Test Item Value Reference Range Comments SODIUM (BEAKER) (test ajtb=648) 139 meq/L 136-145 POTASSIUM (BEAKER) (test ykcu=548) 3.6 meq/L 3.5-5.1 CHLORIDE (BEAKER) (test cvvw=228) 106 meq/L 98-107 CO2 (BEAKER) (test cbzm=820) 21 meq/L 22-29 BLOOD UREA NITROGEN (BEAKER) (test mxxh=531) 7 mg/dL 7-21 CREATININE (BEAKER) (test dcwp=691) 0.81 mg/dL 0.57-1.25 GLUCOSE RANDOM (BEAKER) (test zjyz=027) 146 mg/dL 70-105 CALCIUM (BEAKER) (test umax=771) 9.0 mg/dL 8.4-10.2 EGFR (BEAKER) (test gntw=5001) 103 mL/min/1.73 sq m ESTIMATED GFR IS NOT ACCURATE CREATININE CLEARANCE IN PREDICTING GLOMERULAR FILTRATION RATE. ESTIMATED GFR IS NOT APPLICABLE FOR DIALYSIS PATIENTS. POCT-GLUCOSE [id number] 21:24:00* Test Item Value Reference Range Comments POC-GLUCOSE METER (BEAKER) (test ahrp=6928) 164 mg/dL 70-110 TESTED AT [address] [address] POCT-GLUCOSE [id number] 18:31:00* Test Item Value Reference Range Comments POC-GLUCOSE METER (BEAKER) (test vcpo=9547) 158 mg/dL 70-110 TESTED AT [address] [address] POCT-GLUCOSE [id number] 13:16:00* Test Item Value Reference Range Comments POC-GLUCOSE METER (BEAKER) (test tghd=4785) 160 mg/dL 70-110 TESTED AT [address] [address] POCT-GLUCOSE [id number] 09:06:00* Test Item Value Reference Range Comments POC-GLUCOSE METER (BEAKER) (test nrlt=2958) 150 mg/dL 70-110 TESTED AT [address] [place] [address] CBC W/PLT COUNT & AUTO [id number] 06:13:00* Test Item Value Reference Range Comments WHITE BLOOD CELL COUNT (BEAKER) (test oece=818) 3.8 K/ L 4.0-10.0 RED BLOOD CELL COUNT (BEAKER) (test qhxt=016) 4.21 M/ L 4.20-5.80 HEMOGLOBIN (BEAKER) (test ptld=280) 13.7 GM/DL 13.0-16.8 HEMATOCRIT (BEAKER) (test vqrt=773) 38.9 % 40.0-50.0 MEAN CORPUSCULAR VOLUME (BEAKER) (test dbzv=187) 92.4 fL 82.0-98.0 MEAN CORPUSCULAR HEMOGLOBIN (BEAKER) (test pjrv=596) 32.6 pg 27.0-33.0 MEAN CORPUSCULAR HEMOGLOBIN CONC (BEAKER) (test iuza=960) 35.3 GM/DL 32.0-36.0 RED CELL DISTRIBUTION WIDTH (BEAKER) (test umcn=127) 12.7 % 10.3-14.2 PLATELET COUNT (BEAKER) (test hlgj=504) 122 K/CU MM 150-430 MEAN PLATELET VOLUME (BEAKER) (test klbw=326) 8.6 fL 6.5-10.5 NUCLEATED RED BLOOD CELLS (BEAKER) (test drgi=255) 0 /100 WBC 0-0 NEUTROPHILS RELATIVE PERCENT (BEAKER) (test zfgh=715) 47 % LYMPHOCYTES RELATIVE PERCENT (BEAKER) (test rypo=942) 41 % MONOCYTES RELATIVE PERCENT (BEAKER) (test mhbq=250) 8 % EOSINOPHILS RELATIVE PERCENT (BEAKER) (test hnai=438) 4 % BASOPHILS RELATIVE PERCENT (BEAKER) (test ytpk=452) 0 % NEUTROPHILS ABSOLUTE COUNT (BEAKER) (test urth=181) 1.78 K/ L 1.80-8.00 LYMPHOCYTES ABSOLUTE COUNT (BEAKER) (test rvmd=690) 1.56 K/ L 1.48-4.50 MONOCYTES ABSOLUTE COUNT (BEAKER) (test krcf=154) 0.30 K/ L 0.00-1.30 EOSINOPHILS ABSOLUTE COUNT (BEAKER) (test zugz=648) 0.14 K/ L 0.00-0.50 BASOPHILS ABSOLUTE COUNT (BEAKER) (test gtdz=293) 0.01 K/ L 0.00-0.20 0.00BASIC METABOLIC [id number] 06:12:00* Test Item Value Reference Range Comments SODIUM (BEAKER) (test adfw=556) 140 meq/L 136-145 POTASSIUM (BEAKER) (test kggp=541) 3.6 meq/L 3.5-5.1 CHLORIDE (BEAKER) (test nuqo=120) 107 meq/L 98-107 CO2 (BEAKER) (test sutc=476) 23 meq/L 22-29 BLOOD UREA NITROGEN (BEAKER) (test rcls=280) 5 mg/dL 7-21 CREATININE (BEAKER) (test kogu=364) 0.84 mg/dL 0.57-1.25 GLUCOSE RANDOM (BEAKER) (test ctyy=273) 144 mg/dL 70-105 CALCIUM (BEAKER) (test bcgy=263) 8.7 mg/dL 8.4-10.2 EGFR (BEAKER) (test yavc=1545) 99 mL/min/1.73 sq m ESTIMATED GFR IS NOT ACCURATE CREATININE CLEARANCE IN PREDICTING GLOMERULAR FILTRATION RATE. ESTIMATED GFR IS NOT APPLICABLE FOR DIALYSIS PATIENTS. PROTHROMBIN [id number] 05:50:00* Test Item Value Reference Range Comments PROTIME (BEAKER) (test qsyx=198) 14.4 seconds 11.7-14.7 INR (BEAKER) (test fhqf=595) 1.1 <=5.9 RECOMMENDED COUMADIN/WARFARIN INR THERAPY RANGESSTANDARD DOSE: 2.0 - 3.0 Inclu josé: PROPHYLAXIS for venous thrombosis, systemic embolization; TREATMENT for angelika ous thrombosis and/or pulmonary embolus.HIGH RISK: Target INR is 2.5-3.5 for pat ients with mechanical heart valves.POCT-GLUCOSE [id number] 22:08:00* Test Item Value Reference Range Comments POC-GLUCOSE METER (BEAKER) (test died=7836) 164 mg/dL 70-110 TESTED AT [facility] [address] [facility] [address] POCT-GLUCOSE [id number] 17:46:00* Test Item Value Reference Range Comments POC-GLUCOSE METER (BEAKER) (test mxgt=3372) 158 mg/dL 70-110 TESTED AT [address] [address] POCT-GLUCOSE [id number] 12:03:00* Test Item Value Reference Range Comments POC-GLUCOSE METER (BEAKER) (test ihty=9181) 231 mg/dL 70-110 TESTED AT [address] [address] POCT-GLUCOSE [id number] 09:50:00* Test Item Value Reference Range Comments POC-GLUCOSE METER (BEAKER) (test gjop=4384) 169 mg/dL 70-110 TESTED AT [address] [address] [id number] 07:16:00* Test Item Value Reference Range Comments TRIGLYCERIDES (BEAKER) (test buzf=907) 351 mg/dL TRIGLYCERIDE REFERENCE RANGELow Risk <150Borderline Risk 150-199High Risk 200- 499Very High Risk >=500BASIC METABOLIC [id number] 07:16:00* Test Item Value Reference Range Comments SODIUM (BEAKER) (test mnew=900) 140 meq/L 136-145 POTASSIUM (BEAKER) (test jlie=996) 3.6 meq/L 3.5-5.1 CHLORIDE (BEAKER) (test izix=217) 107 meq/L 98-107 CO2 (BEAKER) (test ffyh=249) 24 meq/L 22-29 BLOOD UREA NITROGEN (BEAKER) (test zoro=014) 5 mg/dL 7-21 CREATININE (BEAKER) (test suys=132) 0.78 mg/dL 0.57-1.25 GLUCOSE RANDOM (BEAKER) (test xhaz=331) 135 mg/dL 70-105 CALCIUM (BEAKER) (test anrk=614) 8.7 mg/dL 8.4-10.2 EGFR (BEAKER) (test ivzr=3619) 108 mL/min/1.73 sq m ESTIMATED GFR IS NOT ACCURATE CREATININE CLEARANCE IN PREDICTING GLOMERULAR FILTRATION RATE. ESTIMATED GFR IS NOT APPLICABLE FOR DIALYSIS PATIENTS. POCT-GLUCOSE [id number] 21:42:00* Test Item Value Reference Range Comments POC-GLUCOSE METER (BEAKER) (test lxpb=3448) 189 mg/dL 70-110 TESTED AT [address] [address] POCT-GLUCOSE [id number] 18:31:00* Test Item Value Reference Range Comments POC-GLUCOSE METER (BEAKER) (test ncbl=4233) 171 mg/dL 70-110 TESTED AT [facility] [address] [facility] [address] POCT-GLUCOSE [id number] 12:38:00* Test Item Value Reference Range Comments POC-GLUCOSE METER (BEAKER) (test lgyf=3074) 229 mg/dL 70-110 TESTED AT [facility] [address] [facility] [address] POCT-GLUCOSE [id number] 07:47:00* Test Item Value Reference Range Comments POC-GLUCOSE METER (BEAKER) (test mnwm=1986) 153 mg/dL 70-110 TESTED AT [facility] [address] [facility] [address] B-TYPE NATRIURETIC FACTOR (BNP)2016-06-19 06:42:00* Test Item Value Reference Range Comments B-TYPE NATRIURETIC PEPTIDE (BEAKER) (test sowq=476) 48 pg/mL 0-100 [id number] 06:37:00* Test Item Value Reference Range Comments MAGNESIUM (BEAKER) (test vzoo=442) 1.7 mg/dL 1.6-2.6 BASIC METABOLIC [id number] 06:37:00* Test Item Value Reference Range Comments SODIUM (BEAKER) (test ggxy=402) 140 meq/L 136-145 POTASSIUM (BEAKER) (test adkm=434) 3.4 meq/L 3.5-5.1 CHLORIDE (BEAKER) (test bqqj=951) 107 meq/L 98-107 CO2 (BEAKER) (test ikir=896) 24 meq/L 22-29 BLOOD UREA NITROGEN (BEAKER) (test oskh=255) 6 mg/dL 7-21 CREATININE (BEAKER) (test mqjy=335) 0.77 mg/dL 0.57-1.25 GLUCOSE RANDOM (BEAKER) (test apiw=134) 138 mg/dL 70-105 CALCIUM (BEAKER) (test frjg=424) 8.6 mg/dL 8.4-10.2 EGFR (BEAKER) (test uunt=4104) 109 mL/min/1.73 sq m ESTIMATED GFR IS NOT ACCURATE CREATININE CLEARANCE IN PREDICTING GLOMERULAR FILTRATION RATE. ESTIMATED GFR IS NOT APPLICABLE FOR DIALYSIS PATIENTS. POCT-GLUCOSE [id number] 21:18:00* Test Item Value Reference Range Comments POC-GLUCOSE METER (BEAKER) (test onoq=9092) 191 mg/dL 70-110 TESTED AT [place] [id number] [facility] [address] POCT-GLUCOSE [id number] 17:13:00* Test Item Value Reference Range Comments POC-GLUCOSE METER (BEAKER) (test zhir=5825) 141 mg/dL 70-110 TESTED AT [address] [address] POCT-GLUCOSE [id number] 12:20:00* Test Item Value Reference Range Comments POC-GLUCOSE METER (BEAKER) (test yrqo=9791) 290 mg/dL 70-110 TESTED AT [address] [address] SEDIMENTATION [id number] 08:28:00* Test Item Value Reference Range Comments SEDIMENTATION RATE, ERYTHROCYTE (BEAKER) (test vxbd=582) 14 mm/HR 0-15 POCT-GLUCOSE [id number] 08:04:00* Test Item Value Reference Range Comments POC-GLUCOSE METER (BEAKER) (test vxva=1424) 165 mg/dL 70-110 TESTED AT [address] [address] BASIC METABOLIC [id number] 04:53:00* Test Item Value Reference Range Comments SODIUM (BEAKER) (test ckfp=088) 138 meq/L 136-145 POTASSIUM (BEAKER) (test ricu=769) 3.5 meq/L 3.5-5.1 CHLORIDE (BEAKER) (test vxvk=973) 105 meq/L 98-107 CO2 (BEAKER) (test ayix=688) 25 meq/L 22-29 BLOOD UREA NITROGEN (BEAKER) (test hmda=270) 9 mg/dL 7-21 CREATININE (BEAKER) (test yvgv=885) 0.92 mg/dL 0.57-1.25 GLUCOSE RANDOM (BEAKER) (test yzkh=344) 134 mg/dL 70-105 CALCIUM (BEAKER) (test gpji=580) 8.5 mg/dL 8.4-10.2 EGFR (BEAKER) (test flwz=3020) 89 mL/min/1.73 sq m ESTIMATED GFR IS NOT ACCURATE CREATININE CLEARANCE IN PREDICTING GLOMERULAR FILTRATION RATE. ESTIMATED GFR IS NOT APPLICABLE FOR DIALYSIS PATIENTS. POCT-GLUCOSE [id number] 22:43:00* Test Item Value Reference Range Comments POC-GLUCOSE METER (BEAKER) (test hqyn=1921) 160 mg/dL 70-110 TESTED AT [address] [address] POCT-GLUCOSE [id number] 17:55:00* Test Item Value Reference Range Comments POC-GLUCOSE METER (BEAKER) (test siry=9208) 216 mg/dL 70-110 TESTED AT [address] [address] POCT-GLUCOSE [id number] 13:42:00* Test Item Value Reference Range Comments POC-GLUCOSE METER (BEAKER) (test xdss=4129) 148 mg/dL 70-110 TESTED AT [address] [address] POCT-GLUCOSE [id number] 08:01:00* Test Item Value Reference Range Comments POC-GLUCOSE METER (BEAKER) (test maru=0048) 160 mg/dL 70-110 TESTED AT [address] [address] POCT-GLUCOSE [id number] 07:06:00* Test Item Value Reference Range Comments POC-GLUCOSE METER (BEAKER) (test gkmk=9361) 160 mg/dL 70-110 TESTED AT [address] [address] CREATINE KINASE (CK)2016-06-17 05:13:00* Test Item Value Reference Range Comments CREATINE KINASE TOTAL (BEAKER) (test avvp=455) 90 U/L 29-200 BASIC METABOLIC [id number] 05:12:00* Test Item Value Reference Range Comments SODIUM (BEAKER) (test haoe=034) 140 meq/L 136-145 POTASSIUM (BEAKER) (test rnfr=617) 3.4 meq/L 3.5-5.1 CHLORIDE (BEAKER) (test jbhv=823) 105 meq/L 98-107 CO2 (BEAKER) (test aciu=807) 26 meq/L 22-29 BLOOD UREA NITROGEN (BEAKER) (test etee=753) 9 mg/dL 7-21 CREATININE (BEAKER) (test zbaw=208) 0.86 mg/dL 0.57-1.25 GLUCOSE RANDOM (BEAKER) (test czkb=451) 127 mg/dL 70-105 CALCIUM (BEAKER) (test phjq=349) 8.8 mg/dL 8.4-10.2 EGFR (BEAKER) (test mqpp=3227) 96 mL/min/1.73 sq m ESTIMATED GFR IS NOT ACCURATE CREATININE CLEARANCE IN PREDICTING GLOMERULAR FILTRATION RATE. ESTIMATED GFR IS NOT APPLICABLE FOR DIALYSIS PATIENTS. CBC W/PLT COUNT & AUTO [id number] 05:07:00* Test Item Value Reference Range Comments WHITE BLOOD CELL COUNT (BEAKER) (test cbba=051) 3.6 K/ L 4.0-10.0 RED BLOOD CELL COUNT (BEAKER) (test djgv=608) 4.44 M/ L 4.20-5.80 HEMOGLOBIN (BEAKER) (test rjcv=835) 13.9 GM/DL 13.0-16.8 HEMATOCRIT (BEAKER) (test eqwu=512) 41.5 % 40.0-50.0 MEAN CORPUSCULAR VOLUME (BEAKER) (test nato=878) 93.3 fL 82.0-98.0 MEAN CORPUSCULAR HEMOGLOBIN (BEAKER) (test llqe=008) 31.2 pg 27.0-33.0 MEAN CORPUSCULAR HEMOGLOBIN CONC (BEAKER) (test ntpi=167) 33.4 GM/DL 32.0-36.0 RED CELL DISTRIBUTION WIDTH (BEAKER) (test kzwp=287) 12.7 % 10.3-14.2 PLATELET COUNT (BEAKER) (test knvc=142) 114 K/CU MM 150-430 MEAN PLATELET VOLUME (BEAKER) (test izlz=864) 8.9 fL 6.5-10.5 NUCLEATED RED BLOOD CELLS (BEAKER) (test fclf=196) 0 /100 WBC 0-0 NEUTROPHILS RELATIVE PERCENT (BEAKER) (test xtth=771) 48 % LYMPHOCYTES RELATIVE PERCENT (BEAKER) (test pakh=413) 34 % MONOCYTES RELATIVE PERCENT (BEAKER) (test eurq=920) 13 % EOSINOPHILS RELATIVE PERCENT (BEAKER) (test nzax=363) 5 % BASOPHILS RELATIVE PERCENT (BEAKER) (test fsov=708) 1 % NEUTROPHILS ABSOLUTE COUNT (BEAKER) (test ddfu=840) 1.74 K/ L 1.80-8.00 LYMPHOCYTES ABSOLUTE COUNT (BEAKER) (test spar=872) 1.22 K/ L 1.48-4.50 MONOCYTES ABSOLUTE COUNT (BEAKER) (test xxae=517) 0.45 K/ L 0.00-1.30 EOSINOPHILS ABSOLUTE COUNT (BEAKER) (test nudx=507) 0.17 K/ L 0.00-0.50 BASOPHILS ABSOLUTE COUNT (BEAKER) (test tzgc=915) 0.02 K/ L 0.00-0.20 0.00POCT-GLUCOSE [id number] 00:20:00* Test Item Value Reference Range Comments POC-GLUCOSE METER (BEAKER) (test hxgv=4088) 154 mg/dL 70-110 TESTED AT [place] [id number] POCT-GLUCOSE [id number] 20:49:00* Test Item Value Reference Range Comments POC-GLUCOSE METER (BEAKER) (test djtj=5148) 243 mg/dL 70-110 TESTED AT [place] [address]30 POCT-GLUCOSE [id number] 16:38:00* Test Item Value Reference Range Comments POC-GLUCOSE METER (BEAKER) (test axfz=9023) 151 mg/dL 70-110 TESTED AT [place] [address] ANTI-NUCLEAR ANTIBODY (MARIAELENA)2016-06-16 13:39:00* Test Item Value Reference Range Comments ANTI-NUCLEAR ANTIBODY (MARIAELENA) (BEAKER) (test fpon=083) Negative Negative POCT-GLUCOSE [id number] 12:00:00* Test Item Value Reference Range Comments POC-GLUCOSE METER (BEAKER) (test zzsf=1090) 163 mg/dL 70-110 TESTED AT [place] [address] HEMOGLOBIN [id number] 11:16:00* Test Item Value Reference Range Comments HEMOGLOBIN A1C (BEAKER) (test udor=770) 9.5 % 4.3-6.1 POCT-GLUCOSE [id number] 06:06:00* Test Item Value Reference Range Comments POC-GLUCOSE METER (BEAKER) (test mkyf=8549) 151 mg/dL 70-110 TESTED AT [place] [address] CBC W/PLT COUNT & AUTO [id number] 06:06:00* Test Item Value Reference Range Comments WHITE BLOOD CELL COUNT (BEAKER) (test nine=632) 3.1 K/ L 4.0-10.0 RED BLOOD CELL COUNT (BEAKER) (test vdap=576) 4.12 M/ L 4.20-5.80 HEMOGLOBIN (BEAKER) (test gvyk=775) 13.3 GM/DL 13.0-16.8 HEMATOCRIT (BEAKER) (test szgg=261) 39.2 % 40.0-50.0 MEAN CORPUSCULAR VOLUME (BEAKER) (test rcfe=341) 95.2 fL 82.0-98.0 MEAN CORPUSCULAR HEMOGLOBIN (BEAKER) (test qeil=759) 32.2 pg 27.0-33.0 MEAN CORPUSCULAR HEMOGLOBIN CONC (BEAKER) (test lvwu=823) 33.8 GM/DL 32.0-36.0 RED CELL DISTRIBUTION WIDTH (BEAKER) (test ejtb=785) 12.8 % 10.3-14.2 PLATELET COUNT (BEAKER) (test upln=662) 106 K/CU MM 150-430 MEAN PLATELET VOLUME (BEAKER) (test ottw=677) 9.1 fL 6.5-10.5 NUCLEATED RED BLOOD CELLS (BEAKER) (test seba=870) 0 /100 WBC 0-0 NEUTROPHILS RELATIVE PERCENT (BEAKER) (test dyma=696) 43 % LYMPHOCYTES RELATIVE PERCENT (BEAKER) (test rlph=468) 39 % MONOCYTES RELATIVE PERCENT (BEAKER) (test wviz=118) 14 % EOSINOPHILS RELATIVE PERCENT (BEAKER) (test kyfr=075) 4 % BASOPHILS RELATIVE PERCENT (BEAKER) (test jldp=682) 1 % NEUTROPHILS ABSOLUTE COUNT (BEAKER) (test dyfs=280) 1.31 K/ L 1.80-8.00 LYMPHOCYTES ABSOLUTE COUNT (BEAKER) (test vpjl=339) 1.19 K/ L 1.48-4.50 MONOCYTES ABSOLUTE COUNT (BEAKER) (test lcmo=425) 0.41 K/ L 0.00-1.30 EOSINOPHILS ABSOLUTE COUNT (BEAKER) (test lqdy=159) 0.12 K/ L 0.00-0.50 BASOPHILS ABSOLUTE COUNT (BEAKER) (test kkzj=425) 0.02 K/ L 0.00-0.20 0.00CARCINOEMBRYONIC ANTIGEN (CEA)2016-06-16 05:40:00* Test Item Value Reference Range Comments CARCINOEMBRYONIC ANTIGEN (BEAKER) (test awfd=255) 1.5 ng/mL 0.0-5.0 [id number] 05:27:00* Test Item Value Reference Range Comments MAGNESIUM (BEAKER) (test edkb=475) 1.9 mg/dL 1.6-2.6 BASIC METABOLIC [id number] 05:27:00* Test Item Value Reference Range Comments SODIUM (BEAKER) (test fdli=987) 140 meq/L 136-145 POTASSIUM (BEAKER) (test gfzo=646) 4.6 meq/L 3.5-5.1 CHLORIDE (BEAKER) (test ezis=606) 106 meq/L 98-107 CO2 (BEAKER) (test fnpf=251) 26 meq/L 22-29 BLOOD UREA NITROGEN (BEAKER) (test kymb=608) 16 mg/dL 7-21 CREATININE (BEAKER) (test rxjr=574) 1.01 mg/dL 0.57-1.25 GLUCOSE RANDOM (BEAKER) (test kfvh=102) 148 mg/dL 70-105 CALCIUM (BEAKER) (test xipx=583) 8.6 mg/dL 8.4-10.2 EGFR (BEAKER) (test tyvf=2693) 80 mL/min/1.73 sq m ESTIMATED GFR IS NOT ACCURATE CREATININE CLEARANCE IN PREDICTING GLOMERULAR FILTRATION RATE. ESTIMATED GFR IS NOT APPLICABLE FOR DIALYSIS PATIENTS. LIPID [id number] 05:27:00* Test Item Value Reference Range Comments TRIGLYCERIDES (BEAKER) (test qdmr=510) 372 mg/dL CHOLESTEROL (BEAKER) (test zadk=605) 138 mg/dL HDL CHOLESTEROL (BEAKER) (test vnge=763) 25 mg/dL LDL CHOLESTEROL CALCULATED (BEAKER) (test mtst=124) 39 mg/dL Triglyceride Reference Range: Low Risk <150 Borderline 150-199 High Risk 200-499 Very High Risk >=500Cholesterol Reference Range: Low Risk <200 Borderline 200-239 High Risk >240HDL Cholesterol Reference Range: Low Risk >=60 High Risk <40LDL Cholesterol Reference Range: Optimal <100 Near Optimal 100-129 Borderline 130-159 High 160-189 Very High >=190 HEPATIC FUNCTION [id number] 05:27:00* Test Item Value Reference Range Comments TOTAL PROTEIN (BEAKER) (test vbnf=570) 6.4 gm/dL 6.0-8.3 ALBUMIN (BEAKER) (test uugs=8064) 3.6 g/dL 3.5-5.0 BILIRUBIN TOTAL (BEAKER) (test rkno=919) 0.6 mg/dL 0.2-1.2 BILIRUBIN DIRECT (BEAKER) (test vcmp=379) 0.3 mg/dL 0.1-0.5 ALKALINE PHOSPHATASE (BEAKER) (test wexa=272) 56 U/L 40-150 AST (SGOT) (BEAKER) (test oxsb=074) 24 U/L 5-34 ALT (SGPT) (BEAKER) (test ovxl=862) 28 U/L 6-55 [id number] 05:27:00* Test Item Value Reference Range Comments AMYLASE (BEAKER) (test hsdf=332) 46 U/L 25-125 [id number] 05:27:00* Test Item Value Reference Range Comments LIPASE (BEAKER) (test vgfa=613) 14 U/L 8-78 KETONE, [id number] 05:10:00* Test Item Value Reference Range Comments KETONES, BLOOD (BEAKER) (test nsuw=5585) 0.3 mmol/L <0.4 POCT-GLUCOSE [id number] 23:58:00* Test Item Value Reference Range Comments POC-GLUCOSE METER (BEAKER) (test oyro=5825) 153 mg/dL 70-110 TESTED AT [address] [address] POCT-GLUCOSE [id number] 19:53:00* Test Item Value Reference Range Comments POC-GLUCOSE METER (BEAKER) (test sxnp=8356) 167 mg/dL 70-110 TESTED AT [address] [address] URINALYSIS W/ [id number] 15:33:00* Test Item Value Reference Range Comments COLOR (BEAKER) (test xkxz=011) Yellow CLARITY (BEAKER) (test esqw=704) Hazy SPECIFIC GRAVITY UA (BEAKER) (test szeq=427) 1.026 1.001-1.035 PH UA (BEAKER) (test bdry=942) 5.5 5.0-8.0 PROTEIN UA (BEAKER) (test dwrk=791) 200 mg/dL Negative GLUCOSE UA (BEAKER) (test kpqf=300) 200 mg/dL Negative KETONES UA (BEAKER) (test iflq=568) Negative Negative BILIRUBIN UA (BEAKER) (test uwkh=788) Positive Negative BLOOD UA (BEAKER) (test zynv=675) Negative Negative NITRITE UA (BEAKER) (test zwej=711) Negative Negative LEUKOCYTE ESTERASE UA (BEAKER) (test efte=439) Negative Negative UROBILINOGEN UA (BEAKER) (test nygk=733) 2.0 mg/dL 0.2-1.0 RBC UA (BEAKER) (test dnys=995) 1 /HPF WBC UA (BEAKER) (test jowl=445) 5 /HPF MUCUS (BEAKER) (test qfcn=6041) Moderate SQUAMOUS EPITHELIAL (BEAKER) (test paml=781) 1 /HPF HYALINE CASTS (BEAKER) (test nuai=291) 15 /LPF SOURCE(BEAKER) (test iogy=9750) Urine, Voided POCT-GLUCOSE [id number] 13:08:00* Test Item Value Reference Range Comments POC-GLUCOSE METER (BEAKER) (test elef=0043) 156 mg/dL 70-110 TESTED AT [facility] [address] [facility] [address] CBC W/PLT COUNT & AUTO [id number] 06:43:00* Test Item Value Reference Range Comments WHITE BLOOD CELL COUNT (BEAKER) (test heca=642) 6.4 K/ L 4.0-10.0 RED BLOOD CELL COUNT (BEAKER) (test yfhc=475) 4.33 M/ L 4.20-5.80 HEMOGLOBIN (BEAKER) (test szzu=287) 14.7 GM/DL 13.0-16.8 HEMATOCRIT (BEAKER) (test ebnd=671) 40.8 % 40.0-50.0 MEAN CORPUSCULAR VOLUME (BEAKER) (test azbl=086) 94.4 fL 82.0-98.0 MEAN CORPUSCULAR HEMOGLOBIN (BEAKER) (test pxip=001) 34.0 pg 27.0-33.0 MEAN CORPUSCULAR HEMOGLOBIN CONC (BEAKER) (test dduw=115) 36.0 GM/DL 32.0-36.0 RED CELL DISTRIBUTION WIDTH (BEAKER) (test wrqa=704) 13.0 % 10.3-14.2 PLATELET COUNT (BEAKER) (test stvv=753) 113 K/CU MM 150-430 MEAN PLATELET VOLUME (BEAKER) (test krof=530) 9.8 fL 6.5-10.5 NUCLEATED RED BLOOD CELLS (BEAKER) (test kcsd=734) 0 /100 WBC 0-0 NEUTROPHILS RELATIVE PERCENT (BEAKER) (test dxcq=480) 78 % LYMPHOCYTES RELATIVE PERCENT (BEAKER) (test jdjp=385) 13 % MONOCYTES RELATIVE PERCENT (BEAKER) (test hhcd=626) 7 % EOSINOPHILS RELATIVE PERCENT (BEAKER) (test bsvr=694) 2 % BASOPHILS RELATIVE PERCENT (BEAKER) (test oqoj=418) 0 % NEUTROPHILS ABSOLUTE COUNT (BEAKER) (test mzlj=305) 5.00 K/ L 1.80-8.00 LYMPHOCYTES ABSOLUTE COUNT (BEAKER) (test lfnd=657) 0.82 K/ L 1.48-4.50 MONOCYTES ABSOLUTE COUNT (BEAKER) (test fiko=802) 0.46 K/ L 0.00-1.30 EOSINOPHILS ABSOLUTE COUNT (BEAKER) (test gify=331) 0.12 K/ L 0.00-0.50 BASOPHILS ABSOLUTE COUNT (BEAKER) (test aruq=519) 0.02 K/ L 0.00-0.20 [id number] 06:40:00* Test Item Value Reference Range Comments LIPASE (BEAKER) (test rbnf=453) 11 U/L 8-78 BASIC METABOLIC [id number] 06:40:00* Test Item Value Reference Range Comments SODIUM (BEAKER) (test xwpv=261) 139 meq/L 136-145 POTASSIUM (BEAKER) (test kpzk=814) 3.5 meq/L 3.5-5.1 Specimen slightly hemolyzed CHLORIDE (BEAKER) (test igte=547) 104 meq/L 98-107 CO2 (BEAKER) (test lotj=398) 21 meq/L 22-29 BLOOD UREA NITROGEN (BEAKER) (test poqb=472) 19 mg/dL 7-21 CREATININE (BEAKER) (test lkiw=001) 1.21 mg/dL 0.57-1.25 Specimen slightly hemolyzed GLUCOSE RANDOM (BEAKER) (test quws=885) 174 mg/dL 70-105 CALCIUM (BEAKER) (test wmjh=090) 8.7 mg/dL 8.4-10.2 EGFR (BEAKER) (test sobd=5745) 65 mL/min/1.73 sq m ESTIMATED GFR IS NOT ACCURATE CREATININE CLEARANCE IN PREDICTING GLOMERULAR FILTRATION RATE. ESTIMATED GFR IS NOT APPLICABLE FOR DIALYSIS PATIENTS. HEPATIC FUNCTION [id number] 06:40:00* Test Item Value Reference Range Comments TOTAL PROTEIN (BEAKER) (test moro=757) 6.6 gm/dL 6.0-8.3 Specimen slightly hemolyzed ALBUMIN (BEAKER) (test ebdp=9025) 3.7 g/dL 3.5-5.0 Specimen slightly hemolyzed BILIRUBIN TOTAL (BEAKER) (test cbst=434) 0.7 mg/dL 0.2-1.2 Specimen slightly hemolyzed BILIRUBIN DIRECT (BEAKER) (test stqo=345) 0.2 mg/dL 0.1-0.5 Specimen slightly hemolyzed ALKALINE PHOSPHATASE (BEAKER) (test uicy=208) 61 U/L 40-150 AST (SGOT) (BEAKER) (test wuoh=766) 17 U/L 5-34 Specimen slightly hemolyzed ALT (SGPT) (BEAKER) (test scdx=217) 23 U/L 6-55 Specimen slightly hemolyzed POCT-GLUCOSE [id number] 06:03:00* Test Item Value Reference Range Comments POC-GLUCOSE METER (BEAKER) (test rgrh=2576) 186 mg/dL 70-110 TESTED AT [facility] [address] [address] TROPONIN [id number] 23:26:00* Test Item Value Reference Range Comments TROPONIN I (BEAKER) (test uurf=599) 0.02 ng/mL 0.00-0.03 Effective 02/05/2014: Reference Range ChangeNew: 0.00-0.03 Previous 0.00-0.15T roponin I (TnI) levels must be interpreted in the context of the presenting symp toms and the clinical findings. Elevated TnI levels indicate myocardial damage, but are not specific for ischemic heart disease. Elevated TnI levels are seen in patients with other cardiac conditions (including myocarditis and congestive he art failure), and slight TnI elevations occur in patients with other conditions, including sepsis, renal failure, acidosis, acute neurological disease, and pers istent tachyarrhythmia.[id number] 18:34:00* Test Item Value Reference Range Comments LIPASE (BEAKER) (test myxm=859) 10 U/L 8-78 [id number] 18:34:00* Test Item Value Reference Range Comments AMYLASE (BEAKER) (test bupy=876) 61 U/L 25-125 BASIC METABOLIC [id number] 18:34:00* Test Item Value Reference Range Comments SODIUM (BEAKER) (test xytf=569) 141 meq/L 136-145 POTASSIUM (BEAKER) (test ppek=555) 3.7 meq/L 3.5-5.1 CHLORIDE (BEAKER) (test cxmo=521) 103 meq/L 98-107 CO2 (BEAKER) (test xjsa=931) 25 meq/L 22-29 BLOOD UREA NITROGEN (BEAKER) (test uyfn=310) 15 mg/dL 7-21 CREATININE (BEAKER) (test gxcf=653) 1.20 mg/dL 0.57-1.25 GLUCOSE RANDOM (BEAKER) (test ccin=273) 138 mg/dL 70-105 CALCIUM (BEAKER) (test fuha=304) 9.6 mg/dL 8.4-10.2 EGFR (BEAKER) (test amdv=1882) 65 mL/min/1.73 sq m ESTIMATED GFR IS NOT ACCURATE CREATININE CLEARANCE IN PREDICTING GLOMERULAR FILTRATION RATE. ESTIMATED GFR IS NOT APPLICABLE FOR DIALYSIS PATIENTS. HEPATIC FUNCTION [id number] 18:34:00* Test Item Value Reference Range Comments TOTAL PROTEIN (BEAKER) (test xnei=549) 7.4 gm/dL 6.0-8.3 ALBUMIN (BEAKER) (test vowm=0290) 4.2 g/dL 3.5-5.0 BILIRUBIN TOTAL (BEAKER) (test arep=134) 0.7 mg/dL 0.2-1.2 BILIRUBIN DIRECT (BEAKER) (test qbqu=601) 0.3 mg/dL 0.1-0.5 ALKALINE PHOSPHATASE (BEAKER) (test fbwr=834) 75 U/L 40-150 AST (SGOT) (BEAKER) (test mbfp=523) 19 U/L 5-34 ALT (SGPT) (BEAKER) (test atzg=309) 27 U/L 6-55 CBC W/PLT COUNT & AUTO [id number] 18:22:00* Test Item Value Reference Range Comments WHITE BLOOD CELL COUNT (BEAKER) (test cdfv=655) 10.5 K/ L 4.0-10.0 RED BLOOD CELL COUNT (BEAKER) (test qldq=328) 4.92 M/ L 4.20-5.80 HEMOGLOBIN (BEAKER) (test fhpd=274) 16.0 GM/DL 13.0-16.8 HEMATOCRIT (BEAKER) (test qilb=314) 45.7 % 40.0-50.0 MEAN CORPUSCULAR VOLUME (BEAKER) (test ncbx=606) 93.0 fL 82.0-98.0 MEAN CORPUSCULAR HEMOGLOBIN (BEAKER) (test bysg=205) 32.5 pg 27.0-33.0 MEAN CORPUSCULAR HEMOGLOBIN CONC (BEAKER) (test dqwe=103) 35.0 GM/DL 32.0-36.0 RED CELL DISTRIBUTION WIDTH (BEAKER) (test wcvy=024) 12.9 % 10.3-14.2 PLATELET COUNT (BEAKER) (test pgdz=380) 143 K/CU MM 150-430 MEAN PLATELET VOLUME (BEAKER) (test skzd=864) 9.3 fL 6.5-10.5 NUCLEATED RED BLOOD CELLS (BEAKER) (test yube=634) 0 /100 WBC 0-0 NEUTROPHILS RELATIVE PERCENT (BEAKER) (test zkvg=402) 84 % LYMPHOCYTES RELATIVE PERCENT (BEAKER) (test vezc=648) 9 % MONOCYTES RELATIVE PERCENT (BEAKER) (test dypv=907) 5 % EOSINOPHILS RELATIVE PERCENT (BEAKER) (test imnc=605) 1 % BASOPHILS RELATIVE PERCENT (BEAKER) (test kqtq=203) 0 % NEUTROPHILS ABSOLUTE COUNT (BEAKER) (test ilag=346) 8.86 K/ L 1.80-8.00 LYMPHOCYTES ABSOLUTE COUNT (BEAKER) (test royt=895) 0.97 K/ L 1.48-4.50 MONOCYTES ABSOLUTE COUNT (BEAKER) (test fmhk=383) 0.55 K/ L 0.00-1.30 EOSINOPHILS ABSOLUTE COUNT (BEAKER) (test xylp=584) 0.15 K/ L 0.00-0.50 BASOPHILS ABSOLUTE COUNT (BEAKER) (test ogjo=195) 0.00 K/ L 0.00-0.20 0.00POCT-GLUCOSE [id number] 13:39:00* Test Item Value Reference Range Comments POC-GLUCOSE METER (BEAKER) (test kqun=8435) 143 mg/dL 70-110 TESTED AT [address] [address] POCT-GLUCOSE [id number] 08:01:00* Test Item Value Reference Range Comments POC-GLUCOSE METER (BEAKER) (test pggj=5682) 168 mg/dL 70-110 TESTED AT [address] [address] BASIC METABOLIC [id number] 05:05:00* Test Item Value Reference Range Comments SODIUM (BEAKER) (test gjsv=151) 138 meq/L 136-145 POTASSIUM (BEAKER) (test ksld=359) 3.9 meq/L 3.5-5.1 CHLORIDE (BEAKER) (test tkxp=765) 102 meq/L 98-107 CO2 (BEAKER) (test wzed=365) 26 meq/L 22-29 BLOOD UREA NITROGEN (BEAKER) (test pamj=469) 11 mg/dL 7-21 CREATININE (BEAKER) (test kiri=265) 0.91 mg/dL 0.57-1.25 GLUCOSE RANDOM (BEAKER) (test dwgm=221) 142 mg/dL 70-105 CALCIUM (BEAKER) (test ksnu=916) 8.6 mg/dL 8.4-10.2 EGFR (BEAKER) (test dthk=7084) 90 mL/min/1.73 sq m ESTIMATED GFR IS NOT ACCURATE CREATININE CLEARANCE IN PREDICTING GLOMERULAR FILTRATION RATE. ESTIMATED GFR IS NOT APPLICABLE FOR DIALYSIS PATIENTS. POCT-GLUCOSE [id number] 22:35:00* Test Item Value Reference Range Comments POC-GLUCOSE METER (BEAKER) (test gnrx=1417) 132 mg/dL 70-110 TESTED AT [address] [address] POCT-GLUCOSE [id number] 15:02:00* Test Item Value Reference Range Comments POC-GLUCOSE METER (BEAKER) (test yyza=8818) 188 mg/dL 70-110 TESTED AT [address] [address] POCT-GLUCOSE [id number] 11:16:00* Test Item Value Reference Range Comments POC-GLUCOSE METER (BEAKER) (test dqdc=6233) 233 mg/dL 70-110 TESTED AT [address] [address] (MANUAL DIFFERENTIAL)2016-06-03 09:01:00* Test Item Value Reference Range Comments NEUTROPHILS - REL (DIFF) (BEAKER) (test lujy=3726) 60 % LYMPHOCYTES - REL (DIFF) (BEAKER) (test aini=2038) 30 % MONOCYTES - REL (DIFF) (BEAKER) (test gynk=1328) 7 % EOSINOPHILS - REL (DIFF) (BEAKER) (test fzjk=9324) 3 % NEUTROPHILS - ABS (DIFF) (BEAKER) (test gcqc=7056) 3.00 K/ L 1.80-8.00 LYMPHOCYTES - ABS (DIFF) (BEAKER) (test ptqf=7269) 1.50 K/ L 1.48-4.50 MONOCYTES - ABS (DIFF) (BEAKER) (test vxuq=1077) 0.35 K/ L 0.00-1.30 EOSINOPHILS - ABS (DIFF) (BEAKER) (test sfvg=0299) 0.15 K/ L 0.00-0.50 TOTAL COUNTED (BEAKER) (test cpti=8251) 100 PLT MORPHOLOGY (BEAKER) (test wich=131) Normal RBC MORPHOLOGY (BEAKER) (test owsw=529) Normal ATYPICAL LYMPHS(BEAKER) (test klgy=2287) Present POCT-GLUCOSE [id number] 08:40:00* Test Item Value Reference Range Comments POC-GLUCOSE METER (BEAKER) (test vglb=6611) 228 mg/dL 70-110 TESTED AT [facility] [address] [address] [id number] 05:48:00* Test Item Value Reference Range Comments LIPASE (BEAKER) (test nyua=907) 19 U/L 8-78 [id number] 05:48:00* Test Item Value Reference Range Comments AMYLASE (BEAKER) (test zoqs=127) 52 U/L 25-125 COMPREHENSIVE METABOLIC [id number] 05:48:00* Test Item Value Reference Range Comments TOTAL PROTEIN (BEAKER) (test xycp=155) 6.4 gm/dL 6.0-8.3 ALBUMIN (BEAKER) (test vlhh=8899) 3.6 g/dL 3.5-5.0 ALKALINE PHOSPHATASE (BEAKER) (test outs=221) 86 U/L 40-150 BILIRUBIN TOTAL (BEAKER) (test aqjb=804) 0.5 mg/dL 0.2-1.2 SODIUM (BEAKER) (test kavm=447) 140 meq/L 136-145 POTASSIUM (BEAKER) (test mxix=119) 3.4 meq/L 3.5-5.1 CHLORIDE (BEAKER) (test cvgw=918) 104 meq/L 98-107 CO2 (BEAKER) (test wxfo=178) 24 meq/L 22-29 BLOOD UREA NITROGEN (BEAKER) (test koyi=649) 16 mg/dL 7-21 CREATININE (BEAKER) (test pdpn=355) 0.94 mg/dL 0.57-1.25 GLUCOSE RANDOM (BEAKER) (test amuk=720) 231 mg/dL 70-105 CALCIUM (BEAKER) (test sgbi=066) 8.4 mg/dL 8.4-10.2 AST (SGOT) (BEAKER) (test xavm=431) 14 U/L 5-34 ALT (SGPT) (BEAKER) (test eljt=900) 18 U/L 6-55 EGFR (BEAKER) (test mqtj=3808) 87 mL/min/1.73 sq m ESTIMATED GFR IS NOT ACCURATE CREATININE CLEARANCE IN PREDICTING GLOMERULAR FILTRATION RATE. ESTIMATED GFR IS NOT APPLICABLE FOR DIALYSIS PATIENTS. CBC W/PLT COUNT & AUTO [id number] 05:46:00* Test Item Value Reference Range Comments WHITE BLOOD CELL COUNT (BEAKER) (test nann=324) 5.0 K/ L 4.0-10.0 RED BLOOD CELL COUNT (BEAKER) (test kbew=439) 4.39 M/ L 4.20-5.80 HEMOGLOBIN (BEAKER) (test hrap=963) 13.0 GM/DL 13.0-16.8 HEMATOCRIT (BEAKER) (test ichc=626) 40.0 % 40.0-50.0 MEAN CORPUSCULAR VOLUME (BEAKER) (test ihow=253) 91.2 fL 82.0-98.0 MEAN CORPUSCULAR HEMOGLOBIN (BEAKER) (test umvp=247) 29.6 pg 27.0-33.0 MEAN CORPUSCULAR HEMOGLOBIN CONC (BEAKER) (test mhil=050) 32.4 GM/DL 32.0-36.0 RED CELL DISTRIBUTION WIDTH (BEAKER) (test dksy=080) 12.8 % 10.3-14.2 PLATELET COUNT (BEAKER) (test lriw=068) 128 K/CU MM 150-430 MEAN PLATELET VOLUME (BEAKER) (test uvvm=298) 9.6 fL 6.5-10.5 NUCLEATED RED BLOOD CELLS (BEAKER) (test fsqu=144) 0 /100 WBC 0-0 0.00POCT-GLUCOSE [id number] 00:09:00* Test Item Value Reference Range Comments POC-GLUCOSE METER (BEAKER) (test hvfc=0083) 266 mg/dL 70-110 TESTED AT [facility] [address] [address] URINALYSIS W/ [id number] 20:24:00* Test Item Value Reference Range Comments COLOR (BEAKER) (test xxmy=365) Light Yellow CLARITY (BEAKER) (test vchu=902) Clear SPECIFIC GRAVITY UA (BEAKER) (test qrjc=418) 1.027 1.001-1.035 PH UA (BEAKER) (test dbdj=228) 6.0 5.0-8.0 PROTEIN UA (BEAKER) (test boxw=381) 20 mg/dL Negative GLUCOSE UA (BEAKER) (test jolo=113) >1000 mg/dL Negative KETONES UA (BEAKER) (test xdxm=080) Negative Negative BILIRUBIN UA (BEAKER) (test juua=840) Negative Negative BLOOD UA (BEAKER) (test njms=042) Negative Negative NITRITE UA (BEAKER) (test kvta=677) Negative Negative LEUKOCYTE ESTERASE UA (BEAKER) (test ivxd=892) Negative Negative UROBILINOGEN UA (BEAKER) (test uxdi=292) 0.2 mg/dL 0.2-1.0 RBC UA (BEAKER) (test gggc=443) < /HPF WBC UA (BEAKER) (test jbbr=372) 1 /HPF SQUAMOUS EPITHELIAL (BEAKER) (test kama=563) < /HPF SOURCE(BEAKER) (test rapy=2152) Urine, Clean Catch BASIC METABOLIC [id number] 18:51:00* Test Item Value Reference Range Comments SODIUM (BEAKER) (test izka=865) 134 meq/L 136-145 POTASSIUM (BEAKER) (test kfib=912) 3.4 meq/L 3.5-5.1 Specimen slightly hemolyzed CHLORIDE (BEAKER) (test cyej=568) 98 meq/L 98-107 CO2 (BEAKER) (test qsnf=841) 21 meq/L 22-29 BLOOD UREA NITROGEN (BEAKER) (test cxhk=138) 20 mg/dL 7-21 CREATININE (BEAKER) (test ngjr=718) 1.25 mg/dL 0.57-1.25 Specimen slightly hemolyzed GLUCOSE RANDOM (BEAKER) (test tllx=134) 501 mg/dL 70-105 CALCIUM (BEAKER) (test jqyw=815) 9.3 mg/dL 8.4-10.2 EGFR (BEAKER) (test fdih=2966) 62 mL/min/1.73 sq m ESTIMATED GFR IS NOT ACCURATE CREATININE CLEARANCE IN PREDICTING GLOMERULAR FILTRATION RATE. ESTIMATED GFR IS NOT APPLICABLE FOR DIALYSIS PATIENTS. HEPATIC FUNCTION [id number] 18:49:00* Test Item Value Reference Range Comments TOTAL PROTEIN (BEAKER) (test etla=816) 7.4 gm/dL 6.0-8.3 Specimen slightly hemolyzed ALBUMIN (BEAKER) (test coif=5262) 3.9 g/dL 3.5-5.0 Specimen slightly hemolyzed BILIRUBIN TOTAL (BEAKER) (test stch=164) 0.3 mg/dL 0.2-1.2 Specimen slightly hemolyzed BILIRUBIN DIRECT (BEAKER) (test gijj=577) < mg/dL 0.1-0.5 Specimen slightly hemolyzed ALKALINE PHOSPHATASE (BEAKER) (test ffwh=679) 140 U/L 40-150 AST (SGOT) (BEAKER) (test iezn=468) 14 U/L 5-34 Specimen slightly hemolyzed ALT (SGPT) (BEAKER) (test ylyu=648) 19 U/L 6-55 Specimen slightly hemolyzed Specimen markedly [id number] 18:39:00* Test Item Value Reference Range Comments LIPASE (BEAKER) (test dwhn=986) 38 U/L 8-78 [id number] 18:39:00* Test Item Value Reference Range Comments AMYLASE (BEAKER) (test zkco=822) 57 U/L 25-125 Specimen slightly hemolyzed CBC W/PLT COUNT & AUTO [id number] 18:20:00* Test Item Value Reference Range Comments WHITE BLOOD CELL COUNT (BEAKER) (test jghp=928) 4.8 K/ L 4.0-10.0 RED BLOOD CELL COUNT (BEAKER) (test pado=264) 4.19 M/ L 4.20-5.80 HEMOGLOBIN (BEAKER) (test hawk=618) 14.0 GM/DL 13.0-16.8 HEMATOCRIT (BEAKER) (test ccfy=423) 37.8 % 40.0-50.0 MEAN CORPUSCULAR VOLUME (BEAKER) (test exrj=372) 90.2 fL 82.0-98.0 MEAN CORPUSCULAR HEMOGLOBIN (BEAKER) (test axok=411) 33.3 pg 27.0-33.0 MEAN CORPUSCULAR HEMOGLOBIN CONC (BEAKER) (test wrlz=931) 36.9 GM/DL 32.0-36.0 RED CELL DISTRIBUTION WIDTH (BEAKER) (test mbux=907) 12.7 % 10.3-14.2 PLATELET COUNT (BEAKER) (test jbpm=736) 131 K/CU MM 150-430 MEAN PLATELET VOLUME (BEAKER) (test srbf=789) 9.7 fL 6.5-10.5 NUCLEATED RED BLOOD CELLS (BEAKER) (test brlk=526) 0 /100 WBC 0-0 NEUTROPHILS RELATIVE PERCENT (BEAKER) (test txer=858) 55 % LYMPHOCYTES RELATIVE PERCENT (BEAKER) (test vrjg=612) 36 % MONOCYTES RELATIVE PERCENT (BEAKER) (test mbdo=375) 7 % EOSINOPHILS RELATIVE PERCENT (BEAKER) (test vyye=145) 2 % BASOPHILS RELATIVE PERCENT (BEAKER) (test rrhq=443) 1 % NEUTROPHILS ABSOLUTE COUNT (BEAKER) (test gjkn=685) 2.65 K/ L 1.80-8.00 LYMPHOCYTES ABSOLUTE COUNT (BEAKER) (test mkrp=015) 1.73 K/ L 1.48-4.50 MONOCYTES ABSOLUTE COUNT (BEAKER) (test ysog=370) 0.33 K/ L 0.00-1.30 EOSINOPHILS ABSOLUTE COUNT (BEAKER) (test yece=348) 0.11 K/ L 0.00-0.50 BASOPHILS ABSOLUTE COUNT (BEAKER) (test bcqb=413) 0.03 K/ L 0.00-0.20 0.00POCT-GLUCOSE [id number] 18:02:00* Test Item Value Reference Range Comments POC-GLUCOSE METER (BEAKER) (test rdxb=3985) 442 mg/dL 70-110 Notified JENNY RESENDEZ/TESTED AT [facility] [place] [address] [id number] HEPATIC FUNCTION [id number] 17:17:00* Test Item Value Reference Range Comments TOTAL PROTEIN (BEAKER) (test bmum=454) 7.8 gm/dL 6.0-8.3 Specimen moderately hemolyzed ALBUMIN (BEAKER) (test edfy=8427) 4.0 g/dL 3.5-5.0 Specimen moderately hemolyzed BILIRUBIN TOTAL (BEAKER) (test svax=195) 0.4 mg/dL 0.2-1.2 Specimen moderately hemolyzed BILIRUBIN DIRECT (BEAKER) (test ibjq=648) < mg/dL 0.1-0.5 Specimen moderately hemolyzed ALKALINE PHOSPHATASE (BEAKER) (test zfiu=439) 84 U/L 40-150 AST (SGOT) (BEAKER) (test xomw=665) 25 U/L 5-34 Specimen moderately hemolyzed ALT (SGPT) (BEAKER) (test bzdi=376) 35 U/L 6-55 Specimen moderately hemolyzed Specimen markedly [id number] 17:12:00* Test Item Value Reference Range Comments LIPASE (BEAKER) (test efqa=371) 38 U/L 8-78 [id number] 17:12:00* Test Item Value Reference Range Comments AMYLASE (BEAKER) (test gybm=208) 59 U/L 25-125 Specimen moderately hemolyzed BASIC METABOLIC [id number] 17:12:00* Test Item Value Reference Range Comments SODIUM (BEAKER) (test eftg=513) 134 meq/L 136-145 POTASSIUM (BEAKER) (test jntz=827) 3.6 meq/L 3.5-5.1 Specimen moderately hemolyzed CHLORIDE (BEAKER) (test wqcv=624) 100 meq/L 98-107 CO2 (BEAKER) (test sdah=868) 16 meq/L 22-29 BLOOD UREA NITROGEN (BEAKER) (test jghg=130) 17 mg/dL 7-21 CREATININE (BEAKER) (test jaie=462) 1.37 mg/dL 0.57-1.25 Specimen moderately hemolyzed GLUCOSE RANDOM (BEAKER) (test mftm=142) 358 mg/dL 70-105 CALCIUM (BEAKER) (test svyx=576) 9.4 mg/dL 8.4-10.2 EGFR (BEAKER) (test vugs=5262) 56 mL/min/1.73 sq m ESTIMATED GFR IS NOT ACCURATE CREATININE CLEARANCE IN PREDICTING GLOMERULAR FILTRATION RATE. ESTIMATED GFR IS NOT APPLICABLE FOR DIALYSIS PATIENTS. CBC W/PLT COUNT & AUTO [id number] 16:47:00* Test Item Value Reference Range Comments WHITE BLOOD CELL COUNT (BEAKER) (test sxkc=263) 5.9 K/ L 4.0-10.0 RED BLOOD CELL COUNT (BEAKER) (test qlrr=002) 4.46 M/ L 4.20-5.80 HEMOGLOBIN (BEAKER) (test kvii=224) 15.0 GM/DL 13.0-16.8 HEMATOCRIT (BEAKER) (test zttg=957) 39.6 % 40.0-50.0 MEAN CORPUSCULAR VOLUME (BEAKER) (test dktk=005) 88.7 fL 82.0-98.0 MEAN CORPUSCULAR HEMOGLOBIN (BEAKER) (test kcrx=024) 33.7 pg 27.0-33.0 MEAN CORPUSCULAR HEMOGLOBIN CONC (BEAKER) (test wffn=162) 38.0 GM/DL 32.0-36.0 RED CELL DISTRIBUTION WIDTH (BEAKER) (test pcii=846) 12.4 % 10.3-14.2 PLATELET COUNT (BEAKER) (test rfeo=949) 158 K/CU MM 150-430 MEAN PLATELET VOLUME (BEAKER) (test mibt=365) 9.3 fL 6.5-10.5 NUCLEATED RED BLOOD CELLS (BEAKER) (test fnei=246) 0 /100 WBC 0-0 NEUTROPHILS RELATIVE PERCENT (BEAKER) (test epuz=274) 59 % LYMPHOCYTES RELATIVE PERCENT (BEAKER) (test zktn=015) 30 % MONOCYTES RELATIVE PERCENT (BEAKER) (test pacs=603) 8 % EOSINOPHILS RELATIVE PERCENT (BEAKER) (test dhvs=068) 3 % BASOPHILS RELATIVE PERCENT (BEAKER) (test bdjc=755) 1 % NEUTROPHILS ABSOLUTE COUNT (BEAKER) (test frgg=797) 3.45 K/ L 1.80-8.00 LYMPHOCYTES ABSOLUTE COUNT (BEAKER) (test mmvb=576) 1.74 K/ L 1.48-4.50 MONOCYTES ABSOLUTE COUNT (BEAKER) (test poxz=292) 0.46 K/ L 0.00-1.30 EOSINOPHILS ABSOLUTE COUNT (BEAKER) (test cbfn=668) 0.19 K/ L 0.00-0.50 BASOPHILS ABSOLUTE COUNT (BEAKER) (test qbmg=713) 0.03 K/ L 0.00-0.20 0.00CHEST SINGLE (PORTABLE) [place] [address] Patient Name: DC BARNHART MR #: [id number] : 1970 Age/Sex: 47/M Req #: [id number] Adm Physician: MINOO WALSH MD Ordered by: TITUS MATA MD Report #: [id number] Location: [facility] Room/Bed: [place] [address] Procedure: 97 DX/CHEST SINGLE (PORTABLE) Exam Date: 08/22/17 Ex am Time: 1510 REPORT STATUS: Signed PROCEDURE: A single AP view of th e chest. COMPARISON: None. INDICATIONS: CHEST PAIN FINDI NGS: Lines/tubes: None. Lungs: Hypoinflated lungs.. There is no evidenc e of pneumonia or pulmonary edema. Pleura: There is no pleural effusio n or pneumothorax. Heart and mediastinum: The heart and the mediastinum a re unremarkable. Bones: No acute bony abnormality. IMPRESSION: 1. Hypoinflated lungs, without acute cardiopulmonary disease. Sagar Woodall M.D. Dictated by: Omero Woodall M.D. on 08/23/2017 at 12 :34 Electronically approved by: Omero Woodall M.D. on 08/23/2017 at 12:34 Dictated By: OMERO WOODALL MD 1234 Transcribed By: NICOLE on 08/23/17 1234 COPY TO: TITUS MATA MD CHEST SINGLE (PORTABLE) [place] [address] Patient Name: DC BARNHART MR #: [id number] : 1970 Age/Sex: 46/M Req #: [id number] Adm Physician: Ordered by: RONI MALONE LICENSED MASSAGE THERAPIST Report #: [id number] Location: ER Room/Bed: Procedure: [id number] DX/CHEST SINGLE (PORTABLE) Exam Date: 06/20/17 Exam Time: 1215 REPORT STAT US: Signed PROCEDURE: A single AP view of the chest. COMPARISON: [facility] [employer] [facility], DX, CHEST SINGLE (PORTABLE), 12/02/2016, 11:55. IND ICATIONS: CHEST PAIN-MID TO RIGHT SIDE. COUGH FINDINGS: Lines/tube s: None. Lungs: The lungs are well inflated and clear. There is no evide nce of pneumonia or pulmonary edema. Pleura: There is no pleural effus ion or pneumothorax. Heart and mediastinum: The cardiac silhouette is bor derline enlarged. Bones: No acute bony abnormality. IMPRESSION: 1. Borderline cardiomegaly. No acute decompensation. Analia Roche M.D. Dictated by: Analia Roche M.D. on 06/20/2017 at 12:44 Electronically approved by: Analia Roche M.D. on 06/20/2017 at 12:44 Dictated By: EVELYN ROCHE MD, MD 1244 Transcribed By: NICOLE on 06/20/17 1 244 COPY TO: RONI MALONE LICENSED MASSAGE THERAPIST TESTICULAR [place] [address] Patient Name: DC BARNHART MR #: [id number] : 1970 Age/Sex: 46/M Req #: [id number] Adm Physician: Ordered by: JASVIR BUENO MD Report #: [id number] Location: ER Room/Bed: Procedure: [id number] US/US TESTICULAR Exam Date: 03/04/17 Exam Time: 2132 REPORT STATUS: Signed Exam: US TESTICULAR DOPPLER LTD, US TESTICULAR Clinical History: S SWELLING PAIN L TESTICLE S N Technique: Sonographic evaluation of the testicles using grayscale and color Doppler. Findings. Both testes are normal in echogenicity and size without intratesticular mass. The ri ght testes measures 5.0 x 2.7 x 3.5 cm and the left testes measures 4.7 x 3.1 x 4.2 cm. Arterial and venous flow is documented to bilateral testicles. Th ere is asymmetrically increased flow to the left testicle when compared to the right. Small left hydrocele with minimal internal echoes suggesting some d egree of complexity. No varicocele. Both epididymides are normal in appe arance, the left slightly larger than the right but without increased vascular ity visible. Impression: 1. Left orchitis. Associated small minimally co mplex hydrocele. 2. No evidence of torsion. Signed by: Dr Bruce anthony MD on 03/04/2017 10:21 PM Dictated By: BRUCE BLACKMON MD Electronica lly Signed By: BRUCE BLACKMON MD on 03/04/172220 Transcribed By: SOSA on 05/05/162220 COPY TO: JASVIR BUENO MD US TESTICULAR DOPPLER LTD [place] [address] Patient Name: DC BARNHART MR #: [id number] : 1970 Age/Sex: 46/M Req #: [id number] Adm Physician: Ordered by: JASVIR BUENO MD Report #: [id number] Location: ER Room/Bed: Procedure: [id number] US/US TESTICULAR DOPPLER LTD Exam Date: 03/04/17 Exam Time: 2132 ST ATUS: Signed Exam: US TESTICULAR DOPPLER LTD, US TESTICULAR Clinical History: S SWELLING PAIN L TESTICLE S N Technique: Sonographic e valuation of the testicles using grayscale and color Doppler. Findings. Both testes are normal in echogenicity and size without intratesticular mass. The right testes measures 5.0 x 2.7 x 3.5 cm and the left testes measures 4.7 x 3.1 x 4.2 cm. Arterial and venous flow is documented to bilateral t esticles. There is asymmetrically increased flow to the left testicle when com pared to the right. Small left hydrocele with minimal internal echoes sugge sting some degree of complexity. No varicocele. Both epididymides are no rmal in appearance, the left slightly larger than the right but without increa sed vascularity visible. Impression: 1. Left orchitis. Associated small minimally complex hydrocele. 2. No evidence of torsion. Signed by: Dr Bruce Blackmon MD on 03/04/2017 10:21 PM Dictated By: BRUCE BLACKMON MD 20 Transcribed By: SOSA on 03/04/172220 COPY TO: JASVIR BUENO MD CHEST SINGLE (PORTABLE) [place] [address] Patient Name: DC BARNHART MR #: [id number] : 1970 Age/Sex: 46/M Req #: [id number] Adm Physician: Ordered by: RONI MALONE LICENSED MASSAGE THERAPIST Report #: [id number] Location: ER Room/Bed: Procedure: [id number] DX/CHEST SINGLE (PORTABLE) Exam Date: 12/02/16 Exam Time: 1145 REPORT STAT US: Signed PROCEDURE: A single AP view of the chest. COMPARISON: None . INDICATIONS: CHEST PAIN FINDINGS: Lines/tubes: None. Lungs: Limited evaluation of the lungs due to AP portable technique. Lung volumes are low. No focal consolidation. No pulmonary edema. Pleura: Th ere is no pleural effusion or pneumothorax. Heart and mediastinum: The he art and the mediastinum are unremarkable. Bones: No acute bony abnormalit y. IMPRESSION: No evidence of infection or edema. Dictated by : Satinder Chilel M.D. on 12/02/2016 at 12:17 Electronically approved by: Satinder Chilel M.D. on 12/02/2016 at 12:17 Dictated By: SATINDER CHILEL MD 16 Transcribed By: NICOLE on 12/02/161216 COPY TO: RONI MALONE NP
[2018-12-07] MEDS ORDERED: SODIUM CHLORIDE 0.9% 1000ML 1,000 ML IV STA (00:28)
[2018-12-07] MEDS ORDERED: ONDANSETRON HCL INJ 2MG/ML 2ML 2 MG/ML VIAL IV STA (00:30)
[2018-12-07] MEDS ORDERED: MORPHINE SULFATE INJ 4 MG/ML INJ 1ML IV PRN (01:00)
[2018-12-07 01:29] LABS: BASOPHILS % 0.6 % (0.0-1.0); EOSINOPHILS # (AUTO) 0.1 (0.0-0.4); EOSINOPHILS % 2.4 % (0.0-6.0); HEMATOCRIT 43.7 % (38.2-49.6); HEMOGLOBIN 19.9 g/dL (14.0-18.0); LYMPHOCYTES # (AUTO) 1.6 (1.0-3.2); LYMPHOCYTES % 32.5 % (18.0-39.1); MEAN CORPUSCULAR HEMOGLOBIN 39.6 pg (28-32); MEAN CORPUSCULAR HGB CONC 45.5 g/dL (31-35); MEAN CORPUSCULAR VOLUME 87.1 fL (81-99); MONOCYTES # (AUTO) 0.3 (0.2-0.8); MONOCYTES % 6.7 % (4.4-11.3); NEUTROPHILS # (AUTO) 2.8 (2.1-6.9); PLATELET COUNT 219 x10e3/uL (140-360); RED BLOOD COUNT 5.02 x10e6/uL (4.3-5.7); RED CELL DISTRIBUTION WIDTH 13.4 % (11.7-14.4)
[2018-12-07 01:48] LABS: BILIRUBIN,URINE NEGATIVE (NEGATIVE); CLARITY,URINE CLEAR (CLEAR); COLOR,URINE YELLOW (YELLOW); KETONES,URINE NEGATIVE (NEGATIVE); LEUKOCYTE ESTERASE ,URINE NEGATIVE (NEGATIVE); NITRITE,URINE NEGATIVE (NEGATIVE); PROTEIN,URINE DIPSTICK 2+ (NEGATIVE); URINE UROBILINOGEN 0.2 mg/dL (0.2 - 1)
[2018-12-07 02:05] LABS: ALBUMIN 4.1 g/dL (3.5-5.0); ALBUMIN/GLOBULIN RATIO 0.3 (0.8-2.0); CALCIUM 11.1 mg/dL (8.4-10.2); POTASSIUM 3.4 mmol/L (3.5-5.1)
[2018-12-07 02:13] LABS: ANION GAP 9.4 mmol/L (8-16)
[2018-12-07 02:14] LABS: CREATININE, SERUM 1.3 mg/dL (0.72-1.25)
[2018-12-07 02:18] LABS: BACTERIA,URINE FEW /HPF; EPITHELIAL CELLS,URINE FEW /LPF
[2018-12-07] MEDS ORDERED: SODIUM CHLORIDE 0.9% 50ML 50 ML ONE (03:18)
[2018-12-07] MEDS ORDERED: IOPAMIDOL 370 MG/ML 200 ML INFUS..BTL INJ ONE (03:18)
--- NOTE | 2018-12-07 03:36 | Diagnostic Imaging Report ---
EXAMINATION: CT of the abdomen and pelvis with contrast. TECHNIQUE: Spiral CT images of the abdomen and pelvis were performed from the lung bases to the lesser trochanters after the intravenous administration of 100 cc of Isovue 370 and the oral administration of water. Coronal and sagittal reformatted images were obtained. COMPARISON: None. CLINICAL HISTORY:High blood pressure, vomiting and abdominal pain, elevated blood sugar DISCUSSION: ABDOMEN/PELVIS: LOWER THORAX:Unremarkable. HEPATOBILIARY: No focal hepatic lesions. No intra or extrahepatic biliary ductal dilation. GALLBLADDER: No radio-opaque stones or sludge. No wall thickening. SPLEEN: No splenomegaly. Stable partially exophytic 2.1 x 1.7 cm fluid density lesion in the posterior aspect of the spleen (series 2, image 20), likely representing a cyst or lymphangioma PANCREAS: No focal masses or ductal dilatation. ADRENALS: No adrenal nodules. KIDNEYS/URETERS: No hydronephrosis, stones, or solid mass lesions. PELVIC ORGANS/BLADDER: Bladder is grossly unremarkable. Prostate is unremarkable. PERITONEUM/RETROPERITONEUM: No free air or fluid. LYMPH NODES: No intra-abdominal, retroperitoneal, pelvic or inguinal lymphadenopathy. VESSELS: The celiac trunk,superior and inferior mesenteric and bilateral renal arteries are patent The portal, superior mesenteric and splenic veins are patent. GI TRACT: No bowel dilation or evidence of obstruction. No pericolonic inflammatory changes. Appendix is identified and normal in caliber. BONES AND SOFT TISSUE: No aggressive lytic lesions. Degenerative disc changes in the thoracic and lumbosacral spine, predominantly at L5-S1. No soft tissue abnormalities. IMPRESSION: 1. No acute abdominopelvic abnormalities. Signed by: Dr. Omero Weinberg M.D. on 12/07/2018 3:33 AM
--- OUTSIDE RECORDS SUMMARY | 2018-12-07 03:51 | XMS REPORT | Clinical Summary ---
Author Author CATALINA [facility] Address Unknown Phone Unavailable Care Team Providers Care Service Greeter Name Role Phone Chuck Barker 31 Unavailable [...] Use as 100 each 0 Insulin Pen [place] 4 mm directed. 7 x 32 G [...] by heart cath - 2006 - 12/03/2014 [facility] - Dr. 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 Gold Burnisher Hypertriglyceridemia 12/15/2012 HTN (hypertension) 10/18/2012 Diabetes mellitus [...] Leg pain, anterior, left (Primary Dx) 06/02/2018 [facility] General Internal Medicine - Encounter 06/04/2018 [...] Area Manufactur er 12/18/2016 [id number] / / [id number] Stent Panc Advanix 5fx5cm Str 3752 Stents-Per N/A: Pancreas [place] - [id number] ipheral SCI:ENDO Implanted: Qty: 1 on 06/22/2016 [...] ms QTC Calculatio n(Bazett) 467 ms P [place] 44 degrees R [place] -33 degrees T [place] 49 degrees Normal sinus rhythm Possible Left [...] PROCEDURE - 05/19/2018 ENDOSCOPY SCAN 3:50 PM MORTGAGE LOAN UNDERWRITER CT ABDOMEN/PELVIS WITH IV STAT 03/22/2018 CONTRAST 4:45 PM MORTGAGE LOAN UNDERWRITER ECG 12-LEAD Routine 03/22/2018 3:26 PM MORTGAGE LOAN UNDERWRITER Procedure Note - Interface, External Ris In - 03/22/2018 9:48 PM MORTGAGE LOAN UNDERWRITER Ventricula r Rate 83 BPM Atrial Rate 83 BPM P-R Interval 196 ms QRS Duration 104 ms Q-T Interval 414 ms QTC Calculatio n(Bazett) 486 ms [place] 30 degrees R [place] -35 degrees [place] 8 degrees Normal sinus rhythm Possible Left atrial enlargemen t Left axis deviation Inferior infarct (cited on or before 8) Abnormal ECG When compared with ECG of 8 13:01, Minimal criteria for Anterior infarct are no longer Present QT has lengthened ECG 12-LEAD STAT 03/22/2018 3:26 PM MORTGAGE LOAN UNDERWRITER CBC W/PLT COUNT & AUTO STAT 03/22/2018 DIFFERENTIAL 3:21 PM MORTGAGE LOAN UNDERWRITER TROPONIN I STAT 03/22/2018 3:21 PM MORTGAGE LOAN UNDERWRITER HEPATIC FUNCTION PANEL STAT 03/22/2018 3:21 PM MORTGAGE LOAN UNDERWRITER BASIC METABOLIC PANEL (7) STAT 03/22/2018 3:21 PM MORTGAGE LOAN UNDERWRITER LIPASE STAT 03/22/2018 3:21 PM MORTGAGE LOAN UNDERWRITER CBC W/PLT COUNT & AUTO STAT 03/22/2018 DIFFERENTIAL 3:21 PM MORTGAGE LOAN UNDERWRITER ED ECG INTERPRETATION Routine 03/22/2018 2:48 PM MORTGAGE LOAN UNDERWRITER RHYTHM STRIP - SCAN 03/03/2018 2:20 PM MORTGAGE LOAN UNDERWRITER POCT-GLUCOSE METER Routine 02/25/2018 9:52 AM MORTGAGE LOAN UNDERWRITER POCT-GLUCOSE METER Routine 02/24/2018 9:05 PM MORTGAGE LOAN UNDERWRITER POCT-GLUCOSE METER Routine 02/24/2018 5:44 PM MORTGAGE LOAN UNDERWRITER POCT-GLUCOSE METER Routine 02/24/2018 12:30 PM MORTGAGE LOAN UNDERWRITER PANCREATIC ELASTASE, Routine 02/24/2018 FECAL 11:16 AM MORTGAGE LOAN UNDERWRITER C. DIFFICILE GDH TOXIN Routine 02/24/2018 11:16 AM MORTGAGE LOAN UNDERWRITER STOOL PATH CHARGE Routine 02/24/2018 11:00 AM MORTGAGE LOAN UNDERWRITER STOOL CULTURE + SHIGA Routine 02/24/2018 TOXIN 11:00 AM MORTGAGE LOAN UNDERWRITER POCT-GLUCOSE METER Routine 02/24/2018 9:25 AM MORTGAGE LOAN UNDERWRITER TISSUE TRANSGLUTAMINASE Routine 02/24/2018 ABS,IGG AND IGA 6:40 AM MORTGAGE LOAN UNDERWRITER POCT-GLUCOSE METER Routine 02/23/2018 7:24 PM MORTGAGE LOAN UNDERWRITER POCT-GLUCOSE METER Routine 02/23/2018 11:54 AM MORTGAGE LOAN UNDERWRITER POCT-GLUCOSE METER Routine 02/23/2018 7:56 AM MORTGAGE LOAN UNDERWRITER T4, FREE Routine 02/23/2018 6:00 AM MORTGAGE LOAN UNDERWRITER TSH/FREE T4 IF INDICATED Routine 02/23/2018 6:00 AM MORTGAGE LOAN UNDERWRITER MAGNESIUM Routine 02/23/2018 6:00 AM MORTGAGE LOAN UNDERWRITER BASIC METABOLIC PANEL (7) Routine 02/23/2018 6:00 AM MORTGAGE LOAN UNDERWRITER POCT-GLUCOSE METER Routine 02/22/2018 11:15 PM MORTGAGE LOAN UNDERWRITER POCT-GLUCOSE METER Routine 02/22/2018 5:55 PM MORTGAGE LOAN UNDERWRITER C-REACTIVE PROTEIN Routine 02/22/2018 3:34 PM MORTGAGE LOAN UNDERWRITER OVA AND PARASITE Routine 02/22/2018 EXAMINATION 2:45 PM MORTGAGE LOAN UNDERWRITER POCT-GLUCOSE METER Routine 02/22/2018 12:22 PM MORTGAGE LOAN UNDERWRITER NM HEPATOBILIARY (HIDA) OLYA 02/22/2018 SCAN 9:52 AM MORTGAGE LOAN UNDERWRITER URINALYSIS W/ MICROSCOPIC STAT 02/22/2018 5:46 AM MORTGAGE LOAN UNDERWRITER CBC W/PLT COUNT & AUTO Routine 02/22/2018 DIFFERENTIAL 4:56 AM MORTGAGE LOAN UNDERWRITER LIPASE Routine 02/22/2018 4:56 AM MORTGAGE LOAN UNDERWRITER AMYLASE Routine 02/22/2018 4:56 AM MORTGAGE LOAN UNDERWRITER CBC W/PLT COUNT & AUTO Routine 02/22/2018 DIFFERENTIAL 4:56 AM MORTGAGE LOAN UNDERWRITER MAGNESIUM Routine 02/22/2018 4:56 AM MORTGAGE LOAN UNDERWRITER HEPATIC FUNCTION PANEL Routine 02/22/2018 4:56 AM MORTGAGE LOAN UNDERWRITER BASIC METABOLIC PANEL (7) Routine 02/22/2018 4:56 AM MORTGAGE LOAN UNDERWRITER BLOOD CULTURE STAT 02/22/2018 4:56 AM MORTGAGE LOAN UNDERWRITER POCT-GLUCOSE METER Routine 02/22/2018 1:33 AM MORTGAGE LOAN UNDERWRITER GAMMA GLUTAMYL STAT 02/22/2018 TRANSFERASE (GGT) 12:24 AM MORTGAGE LOAN UNDERWRITER KETONE, BLOOD STAT 02/22/2018 12:24 AM MORTGAGE LOAN UNDERWRITER US ABDOMEN LIMITED STAT 02/21/2018 8:58 PM MORTGAGE LOAN UNDERWRITER BLOOD CULTURE STAT 02/21/2018 7:41 PM MORTGAGE LOAN UNDERWRITER BASIC METABOLIC PANEL (7) STAT 02/21/2018 7:40 PM MORTGAGE LOAN UNDERWRITER XR CHEST 1 VIEW STAT 02/21/2018 PORTABLE/BEDSIDE 6:43 PM MORTGAGE LOAN UNDERWRITER POCT-LACTIC ACID, VENOUS Routine 02/21/2018 6:31 PM MORTGAGE LOAN UNDERWRITER CBC W/PLT COUNT & AUTO STAT 02/21/2018 DIFFERENTIAL 6:30 PM MORTGAGE LOAN UNDERWRITER CBC W/PLT COUNT & AUTO STAT 02/21/2018 DIFFERENTIAL 6:30 PM MORTGAGE LOAN UNDERWRITER BLOOD CULTURE STAT 02/21/2018 6:29 PM MORTGAGE LOAN UNDERWRITER ALKALINE PHOSPHATASE STAT 02/21/2018 6:25 PM MORTGAGE LOAN UNDERWRITER BILIRUBIN, ADULT TOTAL STAT 02/21/2018 6:25 PM MORTGAGE LOAN UNDERWRITER LIPASE STAT 02/21/2018 6:25 PM MORTGAGE LOAN UNDERWRITER AST (SGOT) STAT 02/21/2018 6:25 PM MORTGAGE LOAN UNDERWRITER ALT (SGPT) STAT 02/21/2018 6:25 PM MORTGAGE LOAN UNDERWRITER POCT-GLUCOSE METER Routine 02/20/2018 12:16 AM MORTGAGE LOAN UNDERWRITER CT ABDOMEN/PELVIS WITH IV STAT 02/20/2018 CONTRAST 12:06 AM MORTGAGE LOAN UNDERWRITER CBC W/PLT COUNT & AUTO STAT 02/19/2018 DIFFERENTIAL 10:29 PM MORTGAGE LOAN UNDERWRITER CBC W/PLT COUNT & AUTO STAT 02/19/2018 DIFFERENTIAL 10:29 PM MORTGAGE LOAN UNDERWRITER KETONE, BLOOD STAT 02/19/2018 9:40 PM MORTGAGE LOAN UNDERWRITER LIPASE STAT 02/19/2018 9:40 PM MORTGAGE LOAN UNDERWRITER HEPATIC FUNCTION PANEL STAT 02/19/2018 9:40 PM MORTGAGE LOAN UNDERWRITER BASIC METABOLIC PANEL (7) STAT 02/19/2018 9:40 PM MORTGAGE LOAN UNDERWRITER CBC W/PLT COUNT & AUTO STAT 01/31/2018 DIFFERENTIAL 1:05 PM MORTGAGE LOAN UNDERWRITER LIPASE STAT 01/31/2018 1:05 PM MORTGAGE LOAN UNDERWRITER HEPATIC FUNCTION PANEL STAT 01/31/2018 1:05 PM MORTGAGE LOAN UNDERWRITER KETONE, BLOOD STAT 01/31/2018 1:05 PM MORTGAGE LOAN UNDERWRITER PHOSPHORUS STAT 01/31/2018 1:05 PM MORTGAGE LOAN UNDERWRITER MAGNESIUM STAT 01/31/2018 1:05 PM MORTGAGE LOAN UNDERWRITER TROPONIN I STAT 01/31/2018 1:05 PM MORTGAGE LOAN UNDERWRITER CBC W/PLT COUNT & AUTO STAT 01/31/2018 DIFFERENTIAL 1:05 PM MORTGAGE LOAN UNDERWRITER BASIC METABOLIC PANEL (7) STAT 01/31/2018 1:05 PM MORTGAGE LOAN UNDERWRITER ECG 12-LEAD Routine 01/31/2018 1:01 PM MORTGAGE LOAN UNDERWRITER Procedure Note - Interface, External Ris In - 01/31/2018 6:57 PM MORTGAGE LOAN UNDERWRITER Ventricula r Rate 68 BPM Atrial Rate 68 BPM P-R Interval 212 ms QRS Duration 118 ms Q-T Interval 402 ms QTC Calculatio n(Bazett) 427 ms [place] 31 degrees R [place] -13 degrees T [place] 21 degrees Sinus rhythm with 1st degree A-V block Inferior infarct (cited on or before 8) Cannot rule out Anterior infarct (cited on or before 8) Abnormal ECG When compared with ECG of 12:51, [place] interval has increased QRS duration has increased ECG 12-LEAD STAT 01/31/2018 1:01 PM MORTGAGE LOAN UNDERWRITER POCT-GLUCOSE METER Routine 01/31/2018 12:20 PM MORTGAGE LOAN UNDERWRITER ED ECG INTERPRETATION Routine 12/11/2017 10:24 PM CDT BASIC METABOLIC PANEL (7) STAT 12/06/2017 2:51 PM CDT ECG 12-LEAD Routine 12/06/2017 12:51 PM CDT Procedure Note - Interface, External Ris In - 12/06/2017 6:21 PM CDT Ventricula r Rate 67 BPM Atrial Rate 67 BPM P-R Interval 168 ms QRS Duration 96 ms Q-T Interval 428 ms QTC Calculatio n(Bazett) 452 ms [place] 102 degrees [place] -29 degrees [place] 3 degrees Normal sinus rhythm Inferior infarct [...] as sinus rhythm. Rate is normal rate. [place] is normal. Clinical Impression: non-specific ECGECG reviewed [...] HOSPITAL Immature 1 0 - 1 % [facility] Granulocytes-Relative [facility] Specimen Blood Performing Organization Address City/State/Zipcode Phone Number [facility] [address] [place] [address] [facility] * Lipase (10/04/2018 3:03 AM CDT) Only the most recent of 7 results within the time period is included. Lipase 38 8 - 78 U/L [facility] Specimen Blood Performing Organization Address City/[facility]/Zipcode Phone Number [address] [address] [facility] * Amylase (10/04/2018 3:03 AM CDT) Only the most recent of 2 results within the time period is included. Amylase 71 25 - 125 U/L [facility] Specimen Blood Performing Organization Address City/[facility] Phone Number [address] [address] [facility] * Hepatic function panel (10/04/2018 3:03 [...] [facility] Specimen Blood Performing Organization Address City/[facility] Phone Number [address] [address] [facility] * Basic Metabolic Panel (10/04/2018 3:03 [...] 64Comment: ESTIMATED GFR IS mL/min/1.73 sq m [facility] NOT ACCURATE CREATININE [facility] CLEARANCE IN PREDICTING GLOMERULAR FILTRATION RATE. ESTIMATED GFR IS NOT APPLICABLE FOR DIALYSIS PATIENTS. Specimen Blood Performing Organization Address City/State/Zipcode Phone Number [facility] [address] [place] [address] [facility] * ECG 12 lead (10/03/2018 11:55 PM CDT) Only the most recent of 5 results within the time period is included. Specimen Narrative Performed At Ventricular Rate 87 BPM GE MUSE Atrial Rate 87 BPM P-R Interval 202 ms QRS Duration 112 ms Q-T Interval 380 ms QTC Calculation(Bazett) 457 ms [place] 17 degrees R [place] -23 degrees T [place] 21 degrees Normal sinus rhythm Possible Left [...] 380 ms QTC Calculation(Bazett) 457 ms [place] 17 degrees R [place] -23 degrees [place] 21 degrees Normal sinus rhythm Possible Left atrial enlargement Left ventricular hypertrophy Cannot rule out Inferior infarct (cited on or before 06-DEC-2017) Abnormal ECG When compared with ECG of 30-AUG-2018 14:51, No significant change was found Confirmed by MD Dozier Mahboob ([id number]) on 10/04/2018 4:31:25 PM Performing Organization Address [facility] Phone Number GE M[facility] * PT/aPTT (08/30/2018 3:52 PM CDT) Protime 14.5 (H) 11.9 - 14.2 seconds [facility] INR 1.2 <=5.9 [facility] PTT 26.2 22.5 - 36.0 seconds [facility] Specimen Blood Narrative Performed At Effective 08/16/2018: PT Reference Range Change [facility] New: 11.9-14.2Previous: 11.7-14.7 [facility] RECOMMENDED COUMADIN/WARFARIN INR THERAPY RANGES STANDARD DOSE: 2.0-3.0Includes: PROPHYLAXIS for venous thrombosis, systemic embolization; TREATMENT for venous thrombosis and/or pulmonary embolus. HIGH RISK: Target INR is 2.5-3.5 for patients wiht mechanical heart valves. Performing Organization Address [facility] Phone Number [place] [phone] [place] [address] * Troponin I (08/30/2018 3:52 PM CDT) Only the most recent of 4 results within the time period is included. Troponin I 0.03 0.00 - 0.03 ng/mL [facility] Specimen Blood Narrative Performed At Troponin I (TnI) levels must be interpreted in the context of the presenting [facility] symptoms and the clinical findings. Elevated TnI levels indicate myocardial [facility] damage, but are not specific for ischemic heart disease. Elevated TnI levels are seen in patients with other cardiac conditions (including myocarditis and congestive heart failure), and slight TnI elevations occur in patients with other conditions, including sepsis, renal failure, acidosis, acute neurological disease, and persistent tachyarrhythmia. Performing Organization Address [facility] [place] [address] [facility] * Magnesium (08/30/2018 3:52 PM CDT) Only the most recent of 4 results within the time period is included. Magnesium 2.2Comment: Specimen slightly 1.6 - 2.6 mg/dL [facility] Specimen Blood Performing Organization Address City/State/Zipcode Phone Number [facility] [address] [place] [address] [facility] * Comprehensive metabolic panel (08/30/2018 3:52 PM CDT) Protein, Total 7.6Comment: Specimen slightly 6.0 - 8.3 gm/dL [facility] Albumin 4.0Comment: Specimen slightly 3.5 - 5.0 g/dL [facility] Alkaline Phosphatase 76 40 - 150 U/L [facility] Total Bilirubin 0.6Comment: Specimen slightly 0.2 - 1.2 mg/dL [facility] Sodium 139 136 - 145 meq/L [facility] Potassium 3.5Comment: Specimen slightly 3.5 - 5.1 meq/L [facility] Chloride 105 98 - 107 meq/L [facility] CO2 24 22 - 29 meq/L [facility] BUN 26 (H) 7 - 21 mg/dL [facility] Creatinine 1.57 (H)Comment: Specimen 0.57 - 1.25 mg/dL [facility] Glucose 167 (H) 70 - 105 mg/dL [facility] Calcium 9.7 8.4 - 10.2 mg/dL [facility] AST 27Comment: Specimen slightly 5 - 34 U/L [facility] ALT 32Comment: Specimen slightly 6 - 55 U/L [facility] EGFR 47Comment: ESTIMATED GFR IS mL/min/1.73 sq m [facility] NOT ACCURATE CREATININE [facility] CLEARANCE IN PREDICTING GLOMERULAR FILTRATION RATE. ESTIMATED GFR IS NOT APPLICABLE FOR DIALYSIS PATIENTS. Specimen Blood Narrative Performed At Specimen slightly lipemic [facility] Performing Organization Address City/State/Zipcode Phone Number [facility] [address] [place] [address] MEDICAL CENTER * XR chest 1 view portable / bedside (08/30/2018 3:45 PM CDT) Only the most recent of 2 results within the time period is included. Specimen Narrative Performed At FINAL REPORT [employer] Chest, AP view, two images. History: Chest pain. Comparison: 02/21/2018. Discussion:The cardiomediastinal silhouette and pulmonary vasculature are within normal limits. The lungs are clear without evidence of consolidation or effusion.There are no acute osseous abnormalities. The soft tissues are unremarkable. IMPRESSION: No acute cardiopulmonary abnormality. Signed: Maryann Andrews MD Report Verified Date/Time:08/30/2018 16:00:00 Reading Location: [facility] Reading Room Procedure Note Interface, External Ris [...] Report Verified Date/Time: 08/30/2018 16:00:00 Reading Location: [facility] Mammo Reading Room Performing Organization Address City/State/Zipcode Phone Number [employer] * Heparin antibody (06/04/2018 3:18 PM CDT) Heparin Ab Negative Negative [facility] Heparin Antibody Optical 0.078 <0.400 [facility] 4T Total Score 2 [facility] Specimen Blood Narrative Performed At Probability of HIT based on scoring system: [facility] 6-8=High probability; 4-5=intermediate probability; 0-3=low probability [facility] Performing Organization Address City/[facility] Phone Number [facility] [address] [place] [address] [facility] * POC-Glucose meter (06/04/2018 12:15 PM CDT) Only the most recent of 22 results within the time period is included. POC-Glucose Meter 101Comment: TESTED AT [facility] 70 - 110 mg/dL [address] Specimen Blood Performing Organization Address [facility] Phone Number [facility] [address] [place] [address] [facility] * PERIPHERAL VASCULAR REPORT - SCAN (06/03/2018 9:11 PM CDT) Narrative Performed At * MR lower extremity without IV contrast left side (06/03/2018 6:50 AM CDT) Specimen Narrative Performed At FINAL REPORT [facility] Indication: traumatic injury TECHNIQUE: Multiplanar multisequence MRI [...] MD Report Verified Date/Time:06/03/2018 08:29:15 Reading Location: [facility] B1 C013X Ortho Consult Reading Room Procedure [...] Report Verified Date/Time: 06/03/2018 08:29:15 Reading Location: [facility] C013X Ortho Consult Reading Room Performing Organization Address City/State/Zipcode Phone Number [facility] * Urinalysis w/Microscopic + Reflex to Culture (06/02/2018 2:49 PM CDT) Color, UA Light Yellow [facility] Clarity, UA Clear [facility] Specific [place], UA 1.019 1.001 - 1.035 [facility] [...] Urine Performing Organization Address City/State/Zipcode Phone Number [facility] [address] [place] [address] [facility] * Venous doppler leg, left (06/02/2018 12:17 PM CDT) Ejection Fraction [facility] Specimen Impressions Performed At Right Impression [facility] Not ordered. [facility] Left Impression 1. There is [...] PV LAB - Lower Extremities DVT Study [facility] Demographics [facility] Patient Name DC BARNHART Date of Study 06/02/2018 YOHANNES [id number] Age 47 Visit Number [id number] GenderMale Accession Number [id number] Date of 1970 Wing Kruse Room Number [address] SonographPercy Interiano.InterpretingYandy Starks RVT, DANIEL [...] Extremities DVT Study Demographics Patient Name DC BARNAHRT Date of Study 06/02/2018 YOHANNES Age 47 Visit Number [id number] Gender Male Accession Number [id number] Date of 1970 Referring Angela Kruse Room Number 5214 Physician Jeremiah NP Bronzer Hroacio Interiano. Interpreting Yandy Starks RVT, ARDMS Physician [...] are measured in cm Performing Organization Address City/[facility] Phone Number [facility]CKESS[facility] * Blood Culture - Routine (Right Venipuncture) (06/02/2018 5:13 AM CDT) Only the most recent of 5 results within the time period is included. Result No growth in 5 days [facility] Specimen Blood Performing Organization Address [facility] [place] [address] [facility] * Creatine Kinase (CK) (06/02/2018 4:14 AM CDT) Total CK 302 (H) 29 - 200 U/L [facility] Specimen Blood Performing Organization Address [facility] [place] [address] [phone] [place] [address] * XR leg / tibia and fibula [...] MD Report Verified Date/Time:06/02/2018 01:32:15 Reading Location: [address] Transitional Reading Room Procedure Note Interface, [...] Report Verified Date/Time: 06/02/2018 01:32:15 Reading Location: [facility] C013T Transitional Reading Room Performing Organization Address City/State/Zipcode Phone Number [employer] * CT abdomen/pelvis with IV contrast (03/22/2018 4:45 PM MORTGAGE LOAN UNDERWRITER) Only the most recent of 2 results within the time period is included. Specimen Narrative Performed At FINAL REPORT [employer] TECHNIQUE: CT of the abdomen and pelvis [...] MD Report Verified Date/Time:03/22/2018 17:05:44 Reading Location: [facility] B1 C013Y CT Body Reading Room Procedure Note Interface, External Ris In - 03/22/2018 5:07 PM MORTGAGE LOAN UNDERWRITER FINAL REPORT TECHNIQUE: CT of the abdomen [...] Report Verified Date/Time: 03/22/2018 17:05:44 Reading Location: [address] Body Reading Room Performing Organization Address City/State/Zipcode Phone Number [facility] * RHYTHM STRIP - SCAN (03/03/2018 2:20 PM MORTGAGE LOAN UNDERWRITER) Narrative Performed At * Clostridium difficile [facility]DH Toxin (02/24/2018 11:16 AM MORTGAGE LOAN UNDERWRITER) C. Difficle Toxin Negative Negative [facility] C. Difficile GDH Antigen NegativeComment: No indication Negative [facility] of Clostridium difficile [facility] infection and no colonization. Discontinue enteric isolation and therapy. Specimen Stool Narrative Performed At Testing performed by [employer] Rapid Cassette Assay.For GDH, published [facility] sensitivity of the assay is 98.7% compared to cytotoxicity testing.For Toxin [facility] AB, published sensitivity is 87.8% and specificity 99.4% compared to cytotoxicity testing. Verification of kit performance was done by the [facility] Microbiology Lab prior to clinical use. Performing Organization Address City/[facility]/Zipcode Phone Number [facility] [address] [place] [address] [facility] * Pancreatic elastase, fecal (02/24/2018 11:16 AM MORTGAGE LOAN UNDERWRITER) Pancreatic Elastase >500 mcg/g [facility] Comment: INCORPORATED Adult and Pediatric Reference Ranges for Pancreatic Elastase-1: Normal:>200 mcg/g Moderate Pancreatic Insufficiency: 100-200 mcg/g Severe Pancreatic Insufficiency: <100 mcg/g Elastase-1 (E-1) assay results are expressed in mcg/g, which represent mcg E1/g feces. It is not necessary to interrupt enzyme substitution therapy. Specimen Stool Narrative Performed At Performing Lab [facility] [employer] [employer] [address] [place] [address] Jd Jeter MD, PhD, ELIU Performing Organization Address [facility] Phone Number [facility] [employer], [address] [place], [place] [facility] [phone] * STOOL PATH CHARGE (02/24/2018 11:00 AM MORTGAGE LOAN UNDERWRITER) Pathogen exam charged Done [facility] Specimen Stool Performing Organization Address City/[facility] Phone Number [address] [address] [facility] * Stool culture + Shiga toxin (02/24/2018 11:00 AM MORTGAGE LOAN UNDERWRITER) Result No Salmonella, Shigella or [facility] Campylobacter isolated [facility] Specimen Stool Narrative Performed At Unable to test for Shiga Toxin 1 due to insufficient growth of specimen. [facility] Unable to test for Shiga Toxin 2 due to insufficient growth of specimen. [facility] Resubmit new specimen if clinically indicated. Insufficient growth in GN broth02/25/20183:01 PMDavid Villanueva Performing Organization Address City/[facility]/Zipcode Phone Number [address] * Tissue Transglutaminase Abs,IgG and IgA (02/24/2018 6:40 AM MORTGAGE LOAN UNDERWRITER) (tTG) Ab, IgG 1 U/mL [facility] Comment: INCORPORATED <6 No Antibody Detected > OR=6 Antibody Detected (tTG) Ab, IgA <1 U/mL [facility] Comment: INCORPORATED <4 No Antibody Detected > OR=4 Antibody Detected Specimen Blood Narrative Performed At Performing Lab [facility] [address] [address] Jd Jeter MD, PhD, ELIU Performing Organization Address City/[facility] Phone Number [facility], [address] [place] [address] [facility] [address] * TSH/Free T4 If Indicated (02/23/2018 6:00 AM MORTGAGE LOAN UNDERWRITER) TSH 6.66 (H) 0.35 - 4.94 uIU/mL [facility] Specimen Blood Performing Organization Address City/[facility] Phone Number [address] * T4, free (02/23/2018 6:00 AM MORTGAGE LOAN UNDERWRITER) Free T4 0.78 0.70 - 1.48 ng/dL [facility] Specimen Blood Performing Organization Address City/[facility] Phone Number [address] * C-Reactive Protein (02/22/2018 3:34 PM MORTGAGE LOAN UNDERWRITER) CRP 0.47 0.00 - 0.50 mg/dL [facility] Specimen Blood Performing Organization Address [facility] Phone Number [address] * Ova and Parasite Examination (02/22/2018 2:45 PM MORTGAGE LOAN UNDERWRITER) O&P Concentrate Smear No ova or parasites seen No ova or parasites seen [facility] O&P Trichrome Smear No ova or parasites seen No ova or parasites seen [facility] Specimen Stool Narrative Performed At Performing Organization Address City/State/Zipcode Phone Number [facility] [address] [place] [address] [facility] * NM hepatobiliary (HIDA) scan (02/22/2018 9:52 AM MORTGAGE LOAN UNDERWRITER) Specimen Narrative Performed At FINAL REPORT [facility] [employer] PROCEDURE: HEPATOBILIARY SCAN CPT CODE: 45820 INDICATION: Right upper quadrant pain cholecystitis suspected, [...] MD Report Verified Date/Time:02/22/2018 11:28:21 Reading Location: [address] iPrint Reading Room Procedure Note Interface, External Ris In - 02/22/2018 11:30 AM MORTGAGE LOAN UNDERWRITER FINAL REPORT PROCEDURE: HEPATOBILIARY SCAN CPT CODE: 80592 INDICATION: Right upper quadrant pain cholecystitis suspected, [...] Report Verified Date/Time: 02/22/2018 11:28:21 Reading Location: [address] iPrint Reading Room Performing Organization Address City/State/Zipcode Phone Number [employer] * Urinalysis w/Microscopic (02/22/2018 5:46 AM MORTGAGE LOAN UNDERWRITER) Only the most recent of 2 results within the time period is included. Color, UA Yellow [facility] Clarity, UA Clear [facility] Specific [place], UA 1.020 1.001 - 1.035 [facility] Specimen Urine Performing Organization Address City/[facility] Phone Number [facility] [address] [place] [address] [facility] * Gamma Glutamyl Transferase (GGT) (02/22/2018 12:24 AM MORTGAGE LOAN UNDERWRITER) GGT 23 9 - 64 U/L [facility] Specimen Blood Performing Organization Address City/[facility] Phone Number [facility] [address] [place] [address] [facility] * Ketone, blood (02/22/2018 12:24 AM MORTGAGE LOAN UNDERWRITER) Only the most recent of 4 results within the time period is included. Ketones, Blood 0.1 <0.4 mmol/L [facility] Specimen Blood Performing Organization Address City/State/Zipcode Phone Number [facility] [address] [place] [address] MEDICAL [facility]ENTER * US abdomen limited (02/21/2018 8:58 PM MORTGAGE LOAN UNDERWRITER) Specimen Narrative Performed At FINAL REPORT [employer] Right Upper Quadrant Ultrasound Clinical Diagnosis: Abdominal [...] MD Report Verified Date/Time:02/21/2018 21:23:48 Reading Location: [facility] C0[facility] Consult Reading Room Procedure Note Interface, External Ris In - 02/21/2018 9:25 PM MORTGAGE LOAN UNDERWRITER FINAL REPORT Right Upper Quadrant Ultrasound Clinical [...] Report Verified Date/Time: 02/21/2018 21:23:48 Reading Location: [facility] C013 Consult Reading Room Performing Organization Address City/[facility] Phone Number [facility] * POC-Lactic Acid, Venous (02/21/2018 6:31 PM MORTGAGE LOAN UNDERWRITER) POC-Lactic Acid, Venous 1.4Comment: TESTED AT [facility] 0.9 - 1.7 mmol/L [address] Specimen Blood Performing Organization Address [facility] Phone Number [address] * ALT (SGPT) (02/21/2018 6:25 PM MORTGAGE LOAN UNDERWRITER) ALT 34Comment: Specimen slightly 6 - 55 U/L [facility] Specimen Blood Performing Organization Address [facility] Phone Number [address] * AST (SGOT) (02/21/2018 6:25 PM MORTGAGE LOAN UNDERWRITER) AST 24Comment: Specimen slightly 5 - 34 U/L [facility] Specimen Blood Performing Organization Address [facility] Phone Number [address] * Alkaline phosphatase (02/21/2018 6:25 PM MORTGAGE LOAN UNDERWRITER) Alkaline Phosphatase 79 40 - 150 U/L [facility] Specimen Blood Performing Organization Address City/[facility] Phone Number [id number] [place] [address] * Bilirubin, adult total (02/21/2018 6:25 PM MORTGAGE LOAN UNDERWRITER) Total Bilirubin 0.5Comment: Specimen slightly 0.2 - 1.2 mg/dL [facility] Specimen Blood Performing Organization Address City/[facility] Phone Number [address] * Phosphorus (01/31/2018 1:05 PM MORTGAGE LOAN UNDERWRITER) Phosphorus 2.3Comment: Specimen markedly 2.3 - 4.7 mg/dL [facility] Specimen Blood Performing Organization Address [facility] Phone Number [address] * Blood gas, venous (12/06/2017 12:40 [...] [facility] Specimen Blood Performing Organization Address City/[facility] Phone Number [address] [address] [phone] * Creatine Kinase (CK), Total and MB (not available at [facility] and [place]) (12/06/2017 12:37 PM CDT) Total CK 188 29 - 200 U/L [facility] CK-MB 3.1 0.0 - 6.6 ng/mL [facility] MB Relative Index 1.6 % [facility] Specimen Blood Narrative Performed At CK-MB Reference Range: [facility] <6.7Normal [facility] 6.7-10.0Borderline >10.0 Abnormal Performing Organization Address City/State/Zipcode Phone Number [facility] [address] [place] [address] [facility] after 12/06/2017 Insurance Payer Benefit Subscriber ID Type Phone Address Plan / Group BLUE CROSS/BLUE SHIELD BCBS HMO xxxxxxxxxxxx HMO/POS [phone] [address] [place] [address] TIALS OTHER-COMMERCIAL GENERIC xxxxxxxxxxxxx COMMERCIAL Advance Directives For more information, please contact: [facility] [address] [place], [place] [id number] Date Inactivated Comments Code Status Date Activated [...]
--- OUTSIDE RECORDS SUMMARY | 2018-12-07 03:52 | XMS REPORT | Continuity of Care Document ---
Author Author [place] Address Unknown Phone Unavailable Care Team Providers Care Biomedical Technician Name Role Phone [employer] Unavailable Unavailable Problems Problem Status Onset Date Classification Date Reported Comments Source Abdominal pain Active Problem 02/12/2018 [facility] Chest pain Active Problem 02/12/2018 [facility] Diabetes mellitus Active Problem 02/12/2018 [facility] Hyperglycemia Active Problem 02/12/2018 [facility] Hypertension Active Problem 02/12/2018 [facility] Obesity Active Problem 02/12/2018 [facility] Poorly controlled diabetes mellitus Active Problem 02/12/2018 [facility] Thrombocytopenia Active Problem 02/12/2018 [facility] Urinary tract infection Active Problem 02/12/2018 [facility] Unstable angina pectoris Active Problem 02/12/2018 [facility] Vomiting and diarrhea Active Problem 02/12/2018 [facility] Medications Medication Details Route Status Patient Instructions Ordering Provider Order Date Source Hydrocodone Bit/Acetaminophen ([place] 10-325 Tablet) 1 Each Tablet, Every 6 Hours as needed for Pain Active 02/11/2018 [facility] Carvedilol (Coreg) 3.125 Mg Tab Every 12 Hours Active [place] 10/03/2016 [facility] Hydroxyzine Hcl 25 Mg Tablet Every 8 Hours as needed for Itching Active [place] 10/03/2016 [facility] Insulin Detemir 100 Unit/Ml Pen Every 12 Hours Active [place] 10/03/2016 [facility] Metoclopramide Hcl 10 Mg Tablet Before Meals And At Bedtime Active [place] 10/03/2016 [facility] Carvedilol 25 Mg Tablet, 6.25 Mg Oral Every Morning Active 10/03/2016 [facility] Insulin Lispro (Humalog) 100 Unit/1 Ml Insuln.pen, 80 Units Sub-Q Before Meals Active 10/03/2016 [facility] Acetaminophen With Codeine (Tylenol With Codeine #3 Tablet) 1 Each Tablet, 1 Tab Oral Every 4 Hours Active 10/01/2016 [facility] Albuterol Sulfate (Albuterol Sulfate Hfa) 8.5 Gm Hfa.aer.ad, 2 Dose Inhalation Every 6 Hours as needed for Shortness Of Breath Active 10/01/2016 [facility] Amlodipine Besylate/Benazepril (Amlodipine-Benazepril 10-40 Mg) 1 Each Capsule, 1 Tab Oral Daily Active 10/01/2016 [facility] Aspirin (Aspir 81) 81 Mg Tablet.dr, 81 Mg Oral Daily Active 10/01/2016 [facility] Butalbital/Aspirin/Caffeine (Fiorinal 50-325-40 Mg Capsule) 1 Each Capsule, 1 Cap Oral Every 4 Hours as needed for Ain Active 10/01/2016 [facility] Cyclobenzaprine Hcl 10 Mg Tablet, 10 Mg Oral Three Times A Day as needed for Pain Active 10/01/2016 [facility] Famotidine (Pepcid) 20 Mg Tablet, 20 Mg Oral Twice A Day Active 10/01/2016 [facility] Hydralazine Hcl 50 Mg Tablet, 10 Mg Oral Three Times A Day Active 10/01/2016 [facility] Hydroxyzine Hcl 25 Mg Tablet, 25 Mg Oral Twice A Day Active 10/01/2016 [facility] Insulin Aspart (Novolog Mix 70-30 Vial) 100 Units/Ml Ml, 60 Units Sub-Q Three Times A Day Active 10/01/2016 [facility] Isosorbide Mononitrate (Isosorbide Mononitrate Er) 30 Mg Tab.er.24h, 30 Mg Oral Daily Active 10/01/2016 [facility] Meloxicam 7.5 Mg Tablet, 15 Mg Oral Daily Active 10/01/2016 [facility] Metformin Hcl 500 Mg Tablet, 500 Mg Oral Twice A Day Active 10/01/2016 [facility] Ondansetron (Zofran Odt) 4 Mg Tab.rapdis, 4 Mg Every 6 Hours as needed for Nausea And Vomiting Active 10/01/2016 [facility] Tramadol Hcl (Ultram 50MG*) 50 Mg Tab, 50 Mg Oral Every 6 Hours as needed for Pain Active 10/01/2016 [facility] Acetaminophen With Codeine (Tylenol With Codeine #3 Tablet) 1 Each Tablet, 300 Mg Oral Every 4 Hours as needed for Pain Active [facility] 01/31/2016 [facility] Ibuprofen 400 Mg Tablet, 800 Mg Oral Every 4 Hours Active 01/14/2016 [facility] Dicyclomine Hcl 20 Mg Tablet, 20 Mg Oral Every 6 Hours Active 01/07/2016 [facility] Doxycycline Hyclate 100 Mg Capsule, 100 Mg Oral Daily Active 01/07/2016 [facility] Hydrocodone/Chlorphen Polis (Tussionex Pennkinetic Susp) 480 Ml Julia.er.12h, 5 Ml Oral Q12hrs Active 01/07/2016 [facility] Levofloxacin 500 Mg Tablet, 500 Mg Oral Daily Active 01/07/2016 [facility] Tramadol Hcl (Ultram 50MG*) 50 Mg Tab, 50 Mg Oral Q4-6HRS Active 01/07/2016 [facility] Sulfamethoxazole/Trimethoprim (Bactrim Ds Tablet) 1 Each Tablet, 1 Each Oral Twice A Day Active [place] 11/11/2015 [facility] Nitroglycerin (Nitrostat) 0.4 Mg Tab.subl, 0.4 Mg Sublingual As Needed Active 11/07/2015 [facility] Acetaminophen/Codeine Phosphate (Tylenol # 3*) 1 Ea Tab Every 6 Hours as needed for Pain Active [facility] Albuterol Sulfate (Proair Hfa Inhaler*) 8.5 Gm Inh Active [facility] Amlodipine Besylate 10 Mg Tablet Daily Active [facility] Atorvastatin Calcium 40 Mg Tablet Daily Active [facility] Baclofen 10 Mg Tablet Bedtime Active [facility] Cetirizine Hcl/Pseudoephedrine ([facility] Allergy Relief-D Tablet) 1 Each Tab.er.12h As Needed Active [facility] Clopidogrel Bisulfate (Clopidogrel) 75 Mg Tablet Daily Active [facility] Clotrimazole 15 Gm Cream..g. for Rash Active [facility] Fenofibrate 160 Mg Tablet Daily Active [facility] Gabapentin 300 Mg Capsule Bedtime Active [facility] Levothyroxine Sodium 50 Mcg Tablet Daily Active [facility] Lisinopril 10 Mg Tablet Daily Active [facility] Pantoprazole Sodium (Protonix) 40 Mg Tablet.dr Daily Active [facility] Sertraline Hcl (Zoloft) 50 Mg Tablet Daily Active [facility] Ursodiol (Parker) 250 Mg Tablet Every Morning Active [facility] Allergies, Adverse Reactions, Alerts Substance Category Reaction Severity Reaction type Status Date Reported Comments Source Sulfamethoxazole Unknown Allergy to Substance Active 01/07/2016 [facility] Trimethoprim Unknown Allergy to Substance Active 01/07/2016 [facility] Hydrocodone PALPITATIONS, TACHYCARDIA Unknown Propensity to adverse reactions Active 10/30/2017 [facility] Immunizations No Data Provided for This Section Results Order Name Results Value Reference Range Date Interpretation Comments Source Capillary blood glucose measurement by glucometer (mass/volume) 253 70 - 120 02/11/2018 [facility] Serum or plasma triglyceride measurement (mass/volume) 1098 0 - 149 02/11/2018 [facility] Serum or plasma cholesterol measurement (mass/volume) 254 0 - 199 02/11/2018 [facility] Serum or plasma cholesterol in HDL measurement (mass/volume) 27 40 - 60 02/11/2018 [facility] Serum or plasma total cholesterol/cholesterol in HDL mass ratio 9.4 3.9 - 4.7 02/11/2018 [facility] Serum or plasma creatine kinase measurement (enzymatic activity/volume) 147 30 - 200 02/11/2018 [facility] Serum or plasma creatine kinase MB measurement (mass/volume) 2.50 0 - 5.0 02/11/2018 [facility] Troponin I measurement by highly sensitive enzyme immunoassay 0.019 0 - 0.300 02/11/2018 [facility] Prothrombin time (PT) in platelet poor plasma by coagulation assay 14.0 11.9 - 14.5 02/10/2018 [facility] INR in Platelet poor plasma by Coagulation assay 0.99 02/10/2018 [facility] Activated partial thromboplastin time (aPTT) in platelet poor plasma bycoagulation assay 25.0 23.8 - 35.5 02/10/2018 [facility] Urine color determination YELLOW YELLOW 11/03/2017 [facility] Urine clarity CLEAR CLEAR 11/03/2017 [facility] Specific gravity of Urine by Test strip 1.025 1.010 - 1.025 11/03/2017 [facility] Urine pH measurement by automated test strip 5 5 - 7 11/03/2017 [facility] Urine leukocyte esterase detection by dipstick NEGATIVE NEGATIVE 11/03/2017 [facility] Urine nitrite detection NEGATIVE NEGATIVE 11/03/2017 [facility] Urine protein measurement by test strip (mass/volume) 1+ NEGATIVE 11/03/2017 [facility] Urine glucose detection 3+ NEGATIVE 11/03/2017 [facility] Urine ketones detection by automated test strip NEGATIVE NEGATIVE 11/03/2017 [facility] Urine urobilinogen measurement by test strip (mass/volume) 0.2 0.2 - 1 11/03/2017 [facility] Urine total bilirubin measurement (mass/volume) NEGATIVE NEGATIVE 11/03/2017 [facility] Urine erythrocytes detection NEGATIVE NEGATIVE 11/03/2017 [facility] Automated urine sediment leukocyte count by microscopy (number/high power field) 0-5 0 - 5 11/03/2017 [facility] Erythrocytes detection in urine sediment by light microscopy NONE 0 - 5 11/03/2017 [facility] Bacteria detection in urine sediment by light microscopy RARE NONE 11/03/2017 [facility] Epithelial cells detection in urine sediment by light microscopy RARE NONE 11/03/2017 [facility] Blood leukocytes automated count (number/volume) 6.46 4.8 - 10.8 11/03/2017 [facility] Blood erythrocytes automated count (number/volume) 5.44 4.3 - 5.7 11/03/2017 [facility] Blood hemoglobin measurement (moles/volume) 16.8 14.0 - 18.0 11/03/2017 [facility] Automated blood hematocrit (volume fraction) 48.3 38.2 - 49.6 11/03/2017 [facility] Automated erythrocyte mean corpuscular volume 88.8 81 - 99 11/03/2017 [facility] Automated erythrocyte mean corpuscular hemoglobin (mass per erythrocyte) 30.9 28 - 32 11/03/2017 [facility] Automated erythrocyte mean corpuscular hemoglobin concentration measurement (mass/volume) 34.8 31 - 35 11/03/2017 [facility] RDW BldCo-Rto 13.2 11.7 - 14.4 11/03/2017 [facility] Automated blood platelet count (count/volume) 141 140 - 360 11/03/2017 [facility] Automated blood segmented neutrophil count as percentage of total leukocytes 74.6 38.7 - 80.0 11/03/2017 [facility] Automated blood lymphocyte count as percentage ot total leukocytes 17.0 18.0 - 39.1 11/03/2017 [facility] Automated blood monocyte count as percentage of total leukocytes 5.6 4.4 - 11.3 11/03/2017 [facility] Automated blood eosinophil count as percentage of total leukocytes 1.7 0.0 - 6.0 11/03/2017 [facility] Automated blood basophil count as percentage of total leukocytes 0.5 0.0 - 1.0 11/03/2017 [facility] IM GRANULOCYTES % 0.6 0.0 - 1.0 11/03/2017 [facility] Automated blood neutrophil count 4.8 2.1 - 6.9 11/03/2017 [facility] Blood lymphocytes count (number/volume) 1.1 1.0 - 3.2 11/03/2017 [facility] Blood monocytes automated count (number/volume) 0.4 0.2 - 0.8 11/03/2017 [facility] Automated blood eosinophil count 0.1 0.0 - 0.4 11/03/2017 [facility] Automated blood basophil count (count/volume) 0.0 0.0 - 0.1 11/03/2017 [facility] Absolute Immature Granulocyte (auto 0.04 0 - 0.1 11/03/2017 [facility] Serum or plasma sodium measurement (moles/volume) 141 136 - 145 11/03/2017 [facility] Serum or plasma potassium measurement (moles/volume) 4.0 3.5 - 5.1 11/03/2017 [facility] Serum or plasma chloride measurement (moles/volume) 104 98 - 107 11/03/2017 [facility] Serum or plasma carbon dioxide, total measurement (moles/volume) 21 22 - 29 11/03/2017 [facility] Serum or plasma anion gap 20.0 8 - 16 11/03/2017 [facility] Serum or plasma urea nitrogen measurement (mass/volume) 25 7 - 26 11/03/2017 [facility] Serum or plasma creatinine measurement (mass/volume) 1.60 0.72 - 1.25 11/03/2017 [facility] Serum or plasma urea nitrogen/creatinine mass ratio 16 6 - 25 11/03/2017 [facility] Estimated glomerular filtration rate (GFR) determination 47 60 11/03/2017 [facility] Glucose measurement 145 74 - 118 11/03/2017 [facility] Serum or plasma calcium measurement (mass/volume) 9.7 8.4 - 10.2 11/03/2017 [facility] Serum or plasma total bilirubin measurement (mass/volume) 0.5 0.2 - 1.2 11/03/2017 [facility] Aspartate Amino Transf (AST/SGOT) 26 5 - 34 11/03/2017 [facility] Serum or plasma alanine aminotransferase measurement (enzymatic activity/volume) 38 0 - 55 11/03/2017 [facility] Serum or plasma protein measurement (mass/volume) 8.1 6.5 - 8.1 11/03/2017 [facility] Serum or plasma albumin measurement (mass/volume) 4.1 3.5 - 5.0 11/03/2017 [facility] Plasma globulin measurement (mass/volume) 4.0 2.3 - 3.5 11/03/2017 [facility] Serum or plasma albumin/globulin mass ratio 1.0 0.8 - 2.0 11/03/2017 [facility] Serum or plasma alkaline phosphatase measurement (enzymatic activity/volume) 80 40 - 150 11/03/2017 [facility] Serum or plasma amylase measurement (enzymatic activity/volume) 102 25 - 125 11/03/2017 [facility] Serum or plasma lipase measurement (enzymatic activity/volume) 39 8 - 78 11/03/2017 [facility] Serum or plasma thyrotropin measurement by detection limit <=0.005 miu/l (units/volume) 2.346 0.350 - 4.940 08/23/2017 [facility] BNP Bld-mCnc 18.8 0 - 100 08/22/2017 [facility] Mucus detection in urine sediment by light microscopy MODERATE RARE 06/20/2017 [facility] Pathology Reports No Data Provided for This [...] DC Date Status Source Departed Emergency Room [id number] VALERIE GAINES MD 06/20/2017 06/20/2017 [facility] Discharged Inpatient (obs) [id number] MINOO WALSH MD 08/22/2017 08/24/2017 [facility] Departed Emergency Room [id number] YINKA POWERS MD 10/30/2017 10/30/2017 [facility] Departed Emergency Room [id number] DC VENCES MD 11/03/2017 11/03/2017 [facility] Admitted Inpatient (obs) [id number] KAREN MCGOWAN MD 02/10/2018 [facility] Procedures Procedure Code Date Perfomer Comments Source CT angiography of chest [id number] 02/11/2018 [facility] L HRT ARTERY/VENTRICLE ANGIO [id number] 08/22/2017 [facility] Assessment and Plan No Data Provided for This Section Plan of Care Plan of Care Date Source Discharge Date 02/11/18 7:30pm Disposition HOME, SELF-CARE Instructions/Education Provided Chest Pain - Noncardiac Chest Pain - Chest Wall Diabetes and Diet Prescriptions See Medication Section Additional Instructions/Education Follow-up with Dr. Bentley (primary care provider) in 1 week. 02/11/2018 [facility] Social History Social History Date Source Social [...] 08/22/2017 8:30pm Not Applicable Not Applicable 02/11/2018 [facility] Family History No Data Provided for This Section Advance Directives Order Name Results Value Date Source Advance Directives Advance Directives Directive Response Recorded Date/Time Does the patient have an advance directive? No 02/10/18 5:25pm If yes, is advance directive on file with [facility]? No 08/22/17 8:30pm If not on file with [facility] will patient provide a copy? No 02/10/18 3:02pm Do you have a Directive to Physician? No 02/10/18 3:02pm Do you have a Medical Power of Valet Manager? No 02/10/18 3:02pm Do you have an [...] rights and responsibilities? Yes 02/10/18 3:02pm 02/11/2018 [facility] Functional Status No Data Provided for This Section
[2018-12-07] MEDS ORDERED: DEXTROSE 50% SYRINGE 50 ML IV PRN (05:00)
--- NOTE | 2018-12-07 05:00 | NUR ---
Patient arrived from ER via stretcher. He is awake, alertx3, and able to make needs known. POC discussed. Patient c/o abdominal pain. Will review EMAR. IVF started to right AC IV as ordered. Bed in lowest position, locked and call amaya within reach.
[2018-12-07] MEDS: SODIUM CHLORIDE 0.9% 1000ML 1,000 ML IV SCH ×3 (05:17→19:41)
[2018-12-07] MEDS: MORPHINE SULFATE INJ 4 MG/ML INJ 1ML IV PRN ×3 (05:18→13:24)
[2018-12-07] MEDS: ONDANSETRON HCL INJ 2MG/ML 2ML 2 MG/ML VIAL IV PRN ×4 (05:18→22:55)
--- NOTE | 2018-12-07 07:07 | NUR ---
Walking rounds done and report given. Call amaya within reach.
--- NOTE | 2018-12-07 07:22 | NUR ---
Rcvd patient in report this am. Patient is asleep in bed at this time. no s/s of distress noted
[2018-12-07] MEDS: INSULIN REGULAR, HUMAN 100 UNIT/1 ML 3ML VIAL SQ SCH ×2 (08:33→11:41)
--- NOTE | 2018-12-07 09:04 | NUR ---
Blood pressure rechecked and noted at 179/98
[2018-12-07] MEDS ORDERED: CLONIDINE HCL 0.1 MG TAB PO ONE (11:40)
--- NOTE | 2018-12-07 15:19 | NUR ---
Patient is AAOx3. Patient lung moreno clear to auscultation. Bowel sounds present x4. No edema noted. patient c/o chronic back pain. PRN pain meds given. IV fluids infusing. No s/s of distress noted
[2018-12-07] MEDS: CARVEDILOL 12.5 MG TAB PO SCH ×2 (15:57→22:06)
[2018-12-07] MEDS: PANTOPRAZOLE SOD 40 MG TABEC PO SCH (15:58)
[2018-12-07] MEDS: AMLODIPINE BESYLATE 10 MG TAB PO SCH (15:58)
[2018-12-07] MEDS: CLOPIDOGREL BISULFATE 75 MG TAB PO SCH (15:58)
[2018-12-07 16:27] LABS: BASOPHILS % 0.5 % (0.0-1.0); EOSINOPHILS # (AUTO) 0.1 (0.0-0.4); EOSINOPHILS % 2.7 % (0.0-6.0); HEMATOCRIT 42.4 % (38.2-49.6); HEMOGLOBIN 17.2 g/dL (14.0-18.0); LYMPHOCYTES # (AUTO) 1.5 (1.0-3.2); LYMPHOCYTES % 36.7 % (18.0-39.1); MEAN CORPUSCULAR HEMOGLOBIN 35.8 pg (28-32); MEAN CORPUSCULAR HGB CONC 40.6 g/dL (31-35); MEAN CORPUSCULAR VOLUME 88.3 fL (81-99); MONOCYTES # (AUTO) 0.3 (0.2-0.8); NEUTROPHILS # (AUTO) 2.1 (2.1-6.9); NEUTROPHILS % 51.9 % (38.7-80.0); PLATELET COUNT 154 x10e3/uL (140-360); RED CELL DISTRIBUTION WIDTH 13.3 % (11.7-14.4)
[2018-12-07] MEDS: METOCLOPRAMIDE HCL 10 MG TAB PO SCH ×2 (16:35→22:06)
[2018-12-07] MEDS: HYDROMORPHONE 1MG/1ML INJ IV PRN ×2 (16:35→22:55)
[2018-12-07] MEDS: INSULIN LISPRO 100 UNIT/1 ML 3ML VIAL SQ SCH ×2 (16:35→22:06)
[2018-12-07 16:49] LABS: BLOOD UREA NITROGEN 12 mg/dL (7-26); BUN/CREATININE RATIO 12 (6-25); CALCIUM 9.3 mg/dL (8.4-10.2); CARBON DIOXIDE 38 mmol/L (22-29); CHLORIDE 95 mmol/L (98-107); CREATININE, SERUM 1.04 mg/dL (0.72-1.25); EST GLOMERULAR FILTRATION RATE > 60 ML/MIN (60-); GLUCOSE 197 mg/dL (74-118); POTASSIUM 3.3 mmol/L (3.5-5.1); SODIUM 130 mmol/L (136-145)
[2018-12-07 16:58] LABS: ANION GAP 0.3 mmol/L (8-16)
[2018-12-07] MEDS: PANCRELIPASE 6000 ER CAPSULE PO SCH (17:56)
[2018-12-07 18:46] LABS: EOSINOPHILS % (MANUAL) 2 % (0-7); LYMPHOCYTES % (MANUAL) 23 % (19-48); MONOCYTES % (MANUAL) 5 % (3.4-9.0); NEUTROPHILS % (MANUAL) 56 % (40-74); PLATELET ESTIMATE ADEQUATE; PLATELET MORPHOLOGY COMMENT FEW GIANT; RBC MORPHOLOGY COMMENT NORMAL
--- NOTE | 2018-12-07 19:12 | NUR ---
received report. pt aaox3, resting in bed with eyes closed. resp even and unlabored. stable condition. no needs voiced at this time. no distress observed. bed locked and in lowest position, call light within easy reach. will continue to monitor.
[2018-12-07 19:20] LABS: CHOL/HDL RATIO 25.7 (3.9-4.7); CHOLESTEROL 539 MD/DL (0-199); HDL CHOLESTEROL 21 MG/DL (40-60); LIPASE 57 U/L (8-78)
[2018-12-07 19:33] LABS: TRIGLYCERIDES 4721 MG/DL (0-149)
[2018-12-07] MEDS ORDERED: CARVEDILOL 3.125 MG TAB PO SCH (21:00)
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
--- NOTE | 2018-12-07 22:05 | NUR ---
consent for EGD signed by patient and placed to chart. pt denies further questions or explanations in regards to EGD planned for 12/08/18. updated patient on POC, updated patient on NPO status, agrees with plan. bed locked and in lowest position, call light within easy reach. will continue to monitor.
[2018-12-07] MEDS: BACLOFEN 10 MG TAB PO SCH (22:06)
[2018-12-07] MEDS: GABAPENTIN 300 MG CAP PO SCH (22:06)
[2018-12-08] VITALS (8 sets, daily range): BP systolic 146–183; BP diastolic 78–107
--- NOTE | 2018-12-08 00:36 | Consultation ---
DATE OF CONSULTATION: 12/07/2018 HISTORY OF PRESENT ILLNESS: This is a 48-year-old, who has a history of diabetes and apparently, history of pancreatitis in the past along with a pancreatic cyst, who presented to the hospital because of abdominal pain along with some nausea and vomiting. He denies any bleeding along this problem. His workup revealed that his CBC was okay, but his chemistry showed a BUN of 31 and creatinine of 1.3. His liver enzymes appear to be normal. His lipase is normal too. He did have a CAT scan of abdomen and pelvis on admission, which essentially was normal. PAST MEDICAL PROBLEMS: Significant for history of diabetes. The patient has a history of pancreatitis as mentioned before. MEDICATIONS: He is on Reglan, Protonix, Plavix, Norvasc, Coreg, Creon, Neurontin, Lioresal, Humalog, Synthroid, and Zoloft. ALLERGIES: NONE. SOCIAL HISTORY: Quit drinking long time ago according to him. FAMILY HISTORY: Noncontributory. REVIEW OF SYSTEMS: Denies any chest pain. No shortness of breath. Denies any dysphagia or odynophagia. Denies any dysuria, hematuria, or any kind of syncopal episode. PHYSICAL EXAMINATION: GENERAL: Awake and alert, appears to be stable, not in any acute distress at this point. VITAL SIGNS: Afebrile currently with stable vital signs. HEAD, EYES, EARS, NOSE, AND THROAT: Normocephalic and atraumatic. Sclera is anicteric. NECK: Supple. HEART: Exam is regular. ABDOMEN: Soft. There is significant tenderness in the epigastric area. There is no rebound or mass. EXTREMITIES: No cyanosis. No clubbing. LABORATORY DATA: As of earlier this morning or last night; BUN 31 and creatinine 1.3. AST of 3, ALT of 30, bilirubin 1.6. WBC 4.12 and hemoglobin 17.2. CAT scan as mentioned before. IMPRESSION: Abdominal pain, nausea and vomiting. Patient supposedly has history of chronic pancreatitis, which he states has required surgery in the past. History of diabetes. RECOMMENDATION: Continue current care at this point. We will proceed with EGD probably tomorrow. Follow labs and clinically. Wale Hameed MD DHAubree/SHALOM Mak: 12/07/2018 16:46:27 /[id number] cc: MD Fili Nunez MD
--- NOTE | 2018-12-08 02:30 | NUR ---
pt remains in stable condition. resting with eyes closed. resp even and unlabored. no distress observed. bed locked and in lowest position, call light within easy reach.
[2018-12-08] MEDS: SODIUM CHLORIDE 0.9% 1000ML 1,000 ML IV SCH ×3 (03:41→17:44)
[2018-12-08] MEDS: LEVOTHYROXINE SODIUM 100 MCG TAB PO SCH (06:00)
[2018-12-08 06:01] LABS: BASOPHILS % 0.5 % (0.0-1.0); EOSINOPHILS # (AUTO) 0.1 (0.0-0.4); HEMOGLOBIN 15.4 g/dL (14.0-18.0); LYMPHOCYTES # (AUTO) 1.1 (1.0-3.2); LYMPHOCYTES % 27.6 % (18.0-39.1); MEAN CORPUSCULAR HEMOGLOBIN 32.3 pg (28-32); MEAN CORPUSCULAR HGB CONC 36.7 g/dL (31-35); MEAN CORPUSCULAR VOLUME 88.1 fL (81-99); MONOCYTES # (AUTO) 0.3 (0.2-0.8); MONOCYTES % 7.8 % (4.4-11.3); NEUTROPHILS # (AUTO) 2.4 (2.1-6.9); NEUTROPHILS % 60.3 % (38.7-80.0); PLATELET COUNT 127 x10e3/uL (140-360); RED BLOOD COUNT 4.77 x10e6/uL (4.3-5.7); RED CELL DISTRIBUTION WIDTH 13.8 % (11.7-14.4)
[2018-12-08 06:24] LABS: ANION GAP 19.7 mmol/L (8-16); BLOOD UREA NITROGEN 6 mg/dL (7-26); BUN/CREATININE RATIO 7 (6-25); CALCIUM 8.5 mg/dL (8.4-10.2); CARBON DIOXIDE 18 mmol/L (22-29); CHLORIDE 99 mmol/L (98-107); EST GLOMERULAR FILTRATION RATE > 60 ML/MIN (60-); GLUCOSE 222 mg/dL (74-118); POTASSIUM 3.7 mmol/L (3.5-5.1); SODIUM 133 mmol/L (136-145)
[2018-12-08 06:53] LABS: PLATELET ESTIMATE SLIGHTLY DECREASED
[2018-12-08 06:54] LABS: PLATELET MORPHOLOGY COMMENT NORMAL
--- NOTE | 2018-12-08 07:00 | NUR ---
BEDSIDE SHIFT REPORT RECEIVED FROM NIGHT RN. PT DENIES NEEDS AT THIS TIME.
[2018-12-08] MEDS: INSULIN LISPRO 100 UNIT/1 ML 3ML VIAL SQ SCH ×4 (07:30→21:00)
[2018-12-08] MEDS: PANTOPRAZOLE SOD 40 MG TABEC PO SCH (07:30)
[2018-12-08] MEDS: METOCLOPRAMIDE HCL 10 MG TAB PO SCH ×4 (07:30→21:00)
[2018-12-08] MEDS: PANCRELIPASE 6000 ER CAPSULE PO SCH ×3 (08:00→17:05)
[2018-12-08] MEDS: SERTRALINE HCL 50 MG TAB PO SCH (08:21)
[2018-12-08] MEDS: CARVEDILOL 12.5 MG TAB PO SCH ×2 (08:24→21:00)
[2018-12-08] MEDS: AMLODIPINE BESYLATE 10 MG TAB PO SCH (08:30)
[2018-12-08] MEDS ORDERED: LEVOTHYROXINE SODIUM 50 MCG TAB PO SCH (09:00)
--- NOTE | 2018-12-08 13:06 | NUR ---
PT OFF THE UNIT TO ENDO.
[2018-12-08] MEDS ORDERED: INSULIN REGULAR, HUMAN 100 UNIT/1 ML 3ML VIAL ONE (13:20)
[2018-12-08] MEDS ORDERED: BENZOCAINE/TETRACAINE/BUTAMBEN AERO SPRAY 56 GM CAN ONE (13:22)
--- NOTE | 2018-12-08 13:48 | NUR ---
PATIENT RECIEVED 10 UNITS REGULAR INSULIN IV PUSH @ 1321.PER DR.S KEMP WRITTEN ORDER.
[2018-12-08] MEDS ORDERED: GLYCOPYRROLATE INJ 1MG/ 5 ML SYR ONE (14:16)
[2018-12-08] MEDS ORDERED: LABETALOL HCL 5 MG/ML 20ML VIAL ONE (14:16)
[2018-12-08] MEDS ORDERED: PROPOFOL IV EMULSION 10 MG/ML 20 ML VIAL ONE (14:16)
[2018-12-08] MEDS ORDERED: LISINOPRIL 10 MG TAB PO SCH (14:45)
[2018-12-08] MEDS ORDERED: MIDAZOLAM HCL 2 MG/2 ML VIAL ONE (15:11)
[2018-12-08] MEDS ORDERED: KETAMINE HCL INJ 50 MG/ML 10 ML VIAL ONE (15:11)
[2018-12-08] MEDS: LISINOPRIL 20 MG TAB PO SCH (17:05)
[2018-12-08] MEDS: ENOXAPARIN SOD INJ 40 MG/0.4 ML SYR SC SCH (17:09)
[2018-12-08] MEDS: ONDANSETRON HCL INJ 2MG/ML 2ML 2 MG/ML VIAL IV PRN ×2 (17:24→23:54)
--- NOTE | 2018-12-08 19:04 | Progress Note ---
DATE: CHIEF COMPLAINT: Nausea, vomiting, and abdominal pain. CONSULTING PHYSICIAN: Wale Hameed MD SUBJECTIVE: The patient is seen resting in bed status post EGD this morning. He complains of constant abdominal pain, but denies nausea and vomiting today. No fever, no chills, shortness of breath or chest pain. OBJECTIVE: VITAL SIGNS: Temperature is 97.2, pulse is 67, respirations 16, blood pressure 157/99, and pulse is 100 on 2 liters of oxygen. GENERAL: No acute distress. HEENT: Normocephalic and atraumatic. LUNGS: Clear to auscultation. CARDIOVASCULAR: Normal sinus rhythm, rate and rhythm. ABDOMEN: Soft and obese, mild tenderness on right upper quadrant and mid epigastric area. Active bowel sounds. NEUROLOGIC: Alert, awake, and oriented x3. MUSCULOSKELETAL: Active ROM. SKIN: Grossly intact. LABORATORY DATA: WBC is 3.95, hemoglobin is 15.4, hematocrit 42.0, and platelets 127. Sodium 133, potassium 3.7, carbon dioxide 18, creatinine 0.9, triglycerides as of yesterday was 4721, cholesterol 539, HDL 21, HDL cholesterol ratio 25.7, and lipase is 57. ASSESSMENT AND PLAN: 1. Abdominal pain with nausea and vomiting. He underwent EGD this morning. We will await on results. GI has been consulted and recommended ADA diet post EGD. 2. Acute kidney injury now improved with IV fluid hydration. We will continue to monitor. 3. Chronic pancreatitis. Likely current abdominal pain is due to pancreatitis. 4. Uncontrolled diabetes. We will continue with insulin before meals and at bedtime for now. 5. Hypertension. We will continue his home medication and add clonidine p.o. as needed. 6. Chronic pain. We will continue with Dilaudid and morphine for pain as needed. 7. Hypothyroidism. Resume levothyroxine. 8. History of lymphoma in remission. 9. Deep vein thrombosis prophylaxis with Lovenox daily. Further recommendations to follow. Dictated by CHANEL Strickland Shaniceching Alexandre Montero MD MY/MODL /[id number] The patient was seen and examined, discussed with Dr. Hameed, will try po challenge to see whether pancreatitis is the cause. Updated family at the beside in details. Agree with the findings and plan as documented per CHANEL Mccartney. MTDD
--- NOTE | 2018-12-08 20:00 | NUR ---
ROUNDS DONE, PATIENT RESTING ON THE SIDE OF THE BED, NO DISTRESS NOTED, CALL LIGHT REMAIN IN REACH. FAMILY AT THE BEDSIDE.
[2018-12-08] MEDS: BACLOFEN 10 MG TAB PO SCH (21:00)
[2018-12-08] MEDS: GABAPENTIN 300 MG CAP PO SCH (21:00)
[2018-12-08] MEDS: HYDROMORPHONE 1MG/1ML INJ IV PRN (23:54)
[2018-12-09] VITALS (10 sets, daily range): BP systolic 112–169; BP diastolic 63–96
[2018-12-09] MEDS: SODIUM CHLORIDE 0.9% 1000ML 1,000 ML IV SCH ×2 (00:35→11:04)
[2018-12-09 05:44] LABS: BASOPHILS % 0.4 % (0.0-1.0); EOSINOPHILS # (AUTO) 0.1 (0.0-0.4); EOSINOPHILS % 1.9 % (0.0-6.0); HEMATOCRIT 44.2 % (38.2-49.6); HEMOGLOBIN 15.8 g/dL (14.0-18.0); LYMPHOCYTES # (AUTO) 1.1 (1.0-3.2); LYMPHOCYTES % 24.1 % (18.0-39.1); MEAN CORPUSCULAR HEMOGLOBIN 32.3 pg (28-32); MEAN CORPUSCULAR HGB CONC 35.7 g/dL (31-35); MEAN CORPUSCULAR VOLUME 90.4 fL (81-99); MONOCYTES # (AUTO) 0.4 (0.2-0.8); PLATELET COUNT 122 x10e3/uL (140-360); RED BLOOD COUNT 4.89 x10e6/uL (4.3-5.7); RED CELL DISTRIBUTION WIDTH 14.3 % (11.7-14.4)
[2018-12-09] MEDS: LEVOTHYROXINE SODIUM 100 MCG TAB PO SCH (05:51)
[2018-12-09] MEDS: HYDROMORPHONE 1MG/1ML INJ IV PRN ×4 (05:54→21:17)
[2018-12-09] MEDS: ONDANSETRON HCL INJ 2MG/ML 2ML 2 MG/ML VIAL IV PRN ×4 (05:54→21:18)
[2018-12-09 05:58] LABS: ANION GAP 21.5 mmol/L (8-16); BLOOD UREA NITROGEN 10 mg/dL (7-26); BUN/CREATININE RATIO 11 (6-25); CARBON DIOXIDE 15 mmol/L (22-29); CHLORIDE 101 mmol/L (98-107); CREATININE, SERUM 0.93 mg/dL (0.72-1.25); EST GLOMERULAR FILTRATION RATE > 60 ML/MIN (60-); GLUCOSE 247 mg/dL (74-118); POTASSIUM 3.5 mmol/L (3.5-5.1); SODIUM 134 mmol/L (136-145)
[2018-12-09] MEDS: METOCLOPRAMIDE HCL 10 MG TAB PO SCH ×4 (07:52→20:50)
[2018-12-09] MEDS: PANTOPRAZOLE SOD 40 MG TABEC PO SCH (07:52)
[2018-12-09] MEDS: PANCRELIPASE 6000 ER CAPSULE PO SCH ×3 (07:56→16:01)
[2018-12-09] MEDS: INSULIN LISPRO 100 UNIT/1 ML 3ML VIAL SQ SCH ×4 (08:03→20:50)
[2018-12-09] MEDS: CARVEDILOL 12.5 MG TAB PO SCH ×2 (08:04→20:49)
[2018-12-09] MEDS: SERTRALINE HCL 50 MG TAB PO SCH (08:04)
[2018-12-09] MEDS: CLOPIDOGREL BISULFATE 75 MG TAB PO SCH (08:04)
[2018-12-09] MEDS: AMLODIPINE BESYLATE 10 MG TAB PO SCH (08:04)
[2018-12-09] MEDS: LISINOPRIL 20 MG TAB PO SCH (08:04)
[2018-12-09] MEDS: DEXTROSE 5%/0.9% SOD CHL 1,000 ML IV SCH ×2 (12:58→20:49)
--- NOTE | 2018-12-09 16:44 | Progress Note ---
DATE: 12/09/2018 CHIEF COMPLAINT: Abdominal pain. CONSULTING PHYSICIAN: Wale Hameed MD with GI. SUBJECTIVE: The patient complaining of abdominal pain, had severe pain after eating dinner and this morning breakfast. Denies nausea or vomiting. No fever, chills, diarrhea, melena reported. He was kept n.p.o. as he has failed p.o. Denies any chest pain or shortness of breath. OBJECTIVE: VITAL SIGNS: Temperature 96.1, pulse is 64, respirations 18, blood pressure 169/96, and O2 is 96%. GENERAL: In bed, in no acute distress. HEENT: Normocephalic and atraumatic. LUNGS: Clear to auscultation. CARDIOVASCULAR: Normal rate and rhythm. EXTREMITIES: No edema noted in the lower extremities. ABDOMEN: Soft and obese. Right upper quadrant pain with palpation. NEUROLOGICAL: Alert, awake, and oriented x3. MUSCULOSKELETAL: Active range of motion. SKIN: Dry and intact. No rash noted. LABORATORY DATA: WBC 4.65, hemoglobin 15.8, hematocrit is 44.2, and platelet is 122. Sodium is 134, CO2 of 15, BUN is 10, creatinine is 0.93. ASSESSMENT AND PLAN: 1. Abdominal pain, severe due to [id number]-stcabax pancreatitis. We will stop diet and keep n.p.o. with IV fluid for hydration. GI has been consulted. Appreciate input. 2. Acute kidney injury, now resolved with IV fluid hydration. 3. Uncontrolled diabetes. Accu-Chek before meals and at bedtime with sliding scale as needed. 4. Hypertension. We will continue home medication and treat as needed with IV hydralazine. 5. Hypothyroidism. Resume home levothyroxine. 6. Chronic pain. Continue with Dilaudid IV p.r.n. 7. Morbid obesity. Discussed lifestyle modification. 8. History of lymphoma in remission. 9. Deep vein thrombosis prophylaxis. Lovenox daily. 10. Further recommendations to follow. Dictated by CHANEL Strickland Shaniceching Alexandre Montero MD MY/MODL /[id number] The patient was seen and examined, discussed with Dr. Hameed, consider NJ tube feed on Tuesday if no improvement. Agree with the findings and plan as documented by CHANEL Mccartney. BEN
[2018-12-09] MEDS: ENOXAPARIN SOD INJ 40 MG/0.4 ML SYR SC SCH (17:10)
[2018-12-09] MEDS: GABAPENTIN 300 MG CAP PO SCH (20:49)
[2018-12-09] MEDS: BACLOFEN 10 MG TAB PO SCH (20:49)
--- NOTE | 2018-12-09 21:12 | NUR ---
Face to Face report given to Jose G ALVARADO. Patient is aware we are transferring him to room 209.
[2018-12-10] VITALS (8 sets, daily range): BP systolic 142–174; BP diastolic 86–108
[2018-12-10] MEDS: HYDROMORPHONE 1MG/1ML INJ IV PRN ×5 (01:45→19:30)
[2018-12-10] MEDS: CLONIDINE HCL 0.1 MG TAB PO PRN (06:15)
[2018-12-10] MEDS: LEVOTHYROXINE SODIUM 100 MCG TAB PO SCH (06:15)
[2018-12-10] MEDS: ONDANSETRON HCL INJ 2MG/ML 2ML 2 MG/ML VIAL IV PRN ×2 (06:21→17:12)
[2018-12-10] MEDS: DEXTROSE 5%/0.9% SOD CHL 1,000 ML IV SCH (06:21)
--- NOTE | 2018-12-10 07:38 | NUR ---
Report received from Chantell Hicks RN. Patient is awake and alert, no complaints.
[2018-12-10] MEDS: PANTOPRAZOLE SOD 40 MG TABEC PO SCH (08:07)
[2018-12-10] MEDS: METOCLOPRAMIDE HCL 10 MG TAB PO SCH ×4 (08:07→20:32)
[2018-12-10] MEDS: PANCRELIPASE 6000 ER CAPSULE PO SCH ×3 (08:07→16:56)
[2018-12-10] MEDS: CLOPIDOGREL BISULFATE 75 MG TAB PO SCH (08:08)
[2018-12-10] MEDS: CARVEDILOL 12.5 MG TAB PO SCH ×2 (08:08→20:31)
[2018-12-10] MEDS: AMLODIPINE BESYLATE 10 MG TAB PO SCH (08:08)
[2018-12-10] MEDS: SERTRALINE HCL 50 MG TAB PO SCH (08:08)
[2018-12-10] MEDS: LISINOPRIL 20 MG TAB PO SCH (08:08)
[2018-12-10] MEDS: INSULIN LISPRO 100 UNIT/1 ML 3ML VIAL SQ SCH ×4 (08:11→20:27)
--- NOTE | 2018-12-10 11:30 | NUR ---
Patient is having pain in the abdomen and is getting Dilaudid 0.5mg IV Q4hr. The pain is 8/10 and the meds do not hold for 4 hours.
[2018-12-10] MEDS: LACTATED RINGER'S 1,000 ML IV SCH ×2 (12:57→20:31)
--- NOTE | 2018-12-10 13:50 | NUR ---
The patient is not complaining of any discomfort and is continuing IV antibiotic, Zosyn, and will determine when he is going to be discharged tomorrow. Addendum: 12/10/18 at 1358 by Kane Raymundo RN This is a note written in error
--- NOTE | 2018-12-10 14:06 | NUR ---
Pain med has been increased to Q3 hours. The patient has received 2 doses so far this shift.
--- NOTE | 2018-12-10 15:40 | NUR ---
Visit made by the Spiritual Care Department Pastoral Visitor, Denilson Baca. PV provided pastoral presence, hospitality, and supportive listening. Pastoral Visitor informed pt/family of the scope of [facility] and availability. KADEEM POWELL Apprentice Cook Spiritual Care Department O: [phone] Pager: [phone] ([phone] number calling from)
--- NOTE | 2018-12-10 16:40 | Progress Note ---
DATE: 12/10/2018 CHIEF COMPLAINT: Severe abdominal pain. CONSULTING PHYSICIAN: Dr. Yoseph Echevarria with GI. SUBJECTIVE: The patient is seen, sitting in recliner chair with family at bedside. He reports constant abdominal pain. He is n.p.o., on IV fluid hydration. Dilaudid increased to every 3 hours as the pain is still severe. We will continue to keep the patient n.p.o. with IV fluid hydration and if the pain does not resolve, anticipate NJ tube placement for feeding. He denies any chest pain, shortness of breath, nausea, vomiting, fever, or chills. OBJECTIVE: VITAL SIGNS: Temperature 96.5, pulse is 59, blood pressure is 159/88, and pulse ox is 94% percent on room air. GENERAL: No acute distress. HEENT: Normocephalic and atraumatic. LUNGS: Clear to auscultation. CARDIOVASCULAR: Normal rate and rhythm. No murmurs. EXTREMITIES: Active ROM. No edema noted. ABDOMEN: Soft and obese. Diffuse abdominal pain, more prominent on the right upper quadrant. NEUROLOGIC: Alert, awake, and oriented x3. MUSCULOSKELETAL: No weakness. No dizziness. Active ROM. SKIN: Dry and intact. No rash or gross abnormality noted. LABORATORY DATA: None drawn today. ASSESSMENT AND PLAN: 1. Severe abdominal pain, likely due to pancreatitis. Lipase has remained normal as this is a chronic pancreatitis. Continue to keep him n.p.o. with IV fluid hydration. Increase frequency of Dilaudid to every 3 hours. If pain continues to worsen, we will insert nasojejunal tube to start tube feeding. GI on the case. Appreciate input. 2. Acute kidney injury, now resolved on IV fluid hydration. 3. Diabetes type 2. Continue sliding scale insulin as needed. 4. Hypertension. We will continue home medication and hydralazine IV p.r.n. 5. Chronic pain. Continue Dilaudid. 6. Hypothyroidism. Resume levothyroxine. 7. History of lymphoma in remission. 8. Morbid obesity. Lifestyle modification discussed. 9. Deep vein thrombosis prophylaxis, Lovenox. Dictated by CHANEL Strickland Rose Montero MD MY/MODL /[id number] Seen and examined, updated at the beside, discussed with Dr. Hameed. Agree with the findings and plan as documented by CHANEL Mccartney. BEN
[2018-12-10] MEDS: ENOXAPARIN SOD INJ 40 MG/0.4 ML SYR SC SCH (16:56)
--- NOTE | 2018-12-10 17:38 | NUR ---
The patient has complained of pain in the abdomen today and has rec'd Dilaudid 3 times with Zofran today. He has been cooperative and stated that the pain is under control.
[2018-12-10] MEDS: BACLOFEN 10 MG TAB PO SCH (20:31)
[2018-12-10] MEDS: GABAPENTIN 300 MG CAP PO SCH (20:31)
[2018-12-11] VITALS (8 sets, daily range): BP systolic 130–166; BP diastolic 80–100
[2018-12-11] MEDS: HYDROMORPHONE 1MG/1ML INJ IV PRN ×7 (04:01→23:30)
[2018-12-11] MEDS: ONDANSETRON HCL INJ 2MG/ML 2ML 2 MG/ML VIAL IV PRN ×5 (04:01→21:24)
[2018-12-11 05:42] LABS: BASOPHILS % 0.3 % (0.0-1.0); EOSINOPHILS # (AUTO) 0.1 (0.0-0.4); HEMOGLOBIN 15.6 g/dL (14.0-18.0); LYMPHOCYTES % 26.5 % (18.0-39.1); MEAN CORPUSCULAR HEMOGLOBIN 31.1 pg (28-32); MEAN CORPUSCULAR HGB CONC 34.7 g/dL (31-35); MEAN CORPUSCULAR VOLUME 89.6 fL (81-99); MONOCYTES # (AUTO) 0.4 (0.2-0.8); MONOCYTES % 10.4 % (4.4-11.3); NEUTROPHILS # (AUTO) 2.2 (2.1-6.9); PLATELET COUNT 109 x10e3/uL (140-360); RED BLOOD COUNT 5.02 x10e6/uL (4.3-5.7)
[2018-12-11 06:00] LABS: ANION GAP 13.3 mmol/L (8-16); BLOOD UREA NITROGEN 13 mg/dL (7-26); BUN/CREATININE RATIO 10 (6-25); CARBON DIOXIDE 24 mmol/L (22-29); CHLORIDE 102 mmol/L (98-107); CREATININE, SERUM 1.25 mg/dL (0.72-1.25); EST GLOMERULAR FILTRATION RATE > 60 ML/MIN (60-); GLUCOSE 199 mg/dL (74-118); POTASSIUM 3.3 mmol/L (3.5-5.1); SODIUM 136 mmol/L (136-145)
[2018-12-11] MEDS: LEVOTHYROXINE SODIUM 100 MCG TAB PO SCH (06:00)
[2018-12-11] MEDS: LACTATED RINGER'S 1,000 ML IV SCH ×3 (06:26→19:54)
[2018-12-11 07:08] LABS: PLATELET ESTIMATE SLIGHTLY DECREASED; PLATELET MORPHOLOGY COMMENT NORMAL
--- NOTE | 2018-12-11 07:35 | NUR ---
Patient endorsed to next shift for continuity of care.
[2018-12-11] MEDS: INSULIN LISPRO 100 UNIT/1 ML 3ML VIAL SQ SCH ×4 (08:00→21:00)
[2018-12-11] MEDS: METOCLOPRAMIDE HCL 10 MG TAB PO SCH ×4 (09:45→19:55)
[2018-12-11] MEDS: LISINOPRIL 20 MG TAB PO SCH (10:00)
[2018-12-11] MEDS: PANTOPRAZOLE SOD 40 MG TABEC PO SCH (10:00)
[2018-12-11] MEDS: SERTRALINE HCL 50 MG TAB PO SCH (10:00)
[2018-12-11] MEDS: AMLODIPINE BESYLATE 10 MG TAB PO SCH (10:00)
[2018-12-11] MEDS: PANCRELIPASE 6000 ER CAPSULE PO SCH ×3 (10:00→17:10)
[2018-12-11] MEDS: CLOPIDOGREL BISULFATE 75 MG TAB PO SCH (10:00)
[2018-12-11] MEDS: CARVEDILOL 12.5 MG TAB PO SCH ×2 (10:00→19:55)
--- NOTE | 2018-12-11 14:30 | NUR ---
Per Dr. Hameed, place order for NJ tube placement.
[2018-12-11] MEDS ORDERED: POTASSIUM CHLORIDE 10MEQ/100ML 100 ML IV ONE (14:45)
--- NOTE | 2018-12-11 17:08 | Progress Note ---
DATE: 12/11/2018 CONSULTING PHYSICIAN: Dr. Yoseph Echevarria with GI. CHIEF COMPLAINT: Abdominal pain. SUBJECTIVE: The patient is still complaining of abdominal pain, rating it 7/10. He remains n.p.o. with IV fluid hydration and Dilaudid for pain. He denies any chest pain, nausea, vomiting, fever, chills, or diarrhea. OBJECTIVE: VITAL SIGNS: Temperature 97.3, pulse is 58, respirations 12, blood pressure is 152/81, pulse ox is 94% on room air. GENERAL: No acute distress. HEENT: Normocephalic, atraumatic. LUNGS: Clear to auscultation. CARDIOVASCULAR: Normal rate and rhythm. No murmurs. EXTREMITIES: Active ROM. No edema. ABDOMEN: Soft with active bowel sounds. Severe right upper quadrant pain, radiating to the mid abdomen. NEUROLOGIC: Alert, awake, oriented x3. MUSCULOSKELETAL: Active ROM. SKIN: Dry and intact. LABORATORY DATA: Reviewed. ASSESSMENT AND PLAN: 1. Severe abdominal pain, due to pancreatitis. Keep n.p.o. with IV fluid hydration. We will start on NJ feeding per GI. 2. Acute kidney injury, now resolved. 3. Hypokalemia, replaced. 4. Diabetes type 2. Continue sliding scale as needed. 5. Hypertension. We will continue home medication and hydralazine as needed. 6. Chronic pain. Continue with Dilaudid. 7. Hypothyroidism. Resume levothyroxine. 8. History of lymphoma, in remission. 9. Morbid obesity. Lifestyle modification discussed. 10. Deep vein thrombosis prophylaxis, is on Lovenox. Dictated by CHANEL Strickland Rose Montero MD MY/MODL /[id number] Seen and examined, discussed with Dr. Hameed. Agree with the findings and plan as documented by CHANEL Mccartney. MTDD
[2018-12-11] MEDS: ENOXAPARIN SOD INJ 40 MG/0.4 ML SYR SC SCH (17:10)
[2018-12-11] MEDS ORDERED: IOPAMIDOL 300 MG/ML 15ML VIAL IT ONE (17:49)
[2018-12-11] MEDS ORDERED: DIATRIZOATE MEGL/DIATRIZOA SOD 30 ML BTL PO ONE (17:49)
--- NOTE | 2018-12-11 18:20 | NUR ---
Patient is back to the floor s/p Dub-lex tube placement.
[2018-12-11] MEDS: BACLOFEN 10 MG TAB PO SCH (19:55)
[2018-12-11] MEDS: GABAPENTIN 300 MG CAP PO SCH (19:55)
[2018-12-12] VITALS (8 sets, daily range): BP systolic 135–184; BP diastolic 71–101
[2018-12-12] MEDS: HYDROMORPHONE 1MG/1ML INJ IV PRN ×8 (02:54→23:45)
[2018-12-12] MEDS: ONDANSETRON HCL INJ 2MG/ML 2ML 2 MG/ML VIAL IV PRN ×4 (02:54→22:44)
[2018-12-12] MEDS: LEVOTHYROXINE SODIUM 100 MCG TAB PO SCH (05:54)
[2018-12-12] MEDS: LACTATED RINGER'S 1,000 ML IV SCH ×3 (05:54→22:44)
[2018-12-12] MEDS: INSULIN LISPRO 100 UNIT/1 ML 3ML VIAL SQ SCH ×4 (08:00→20:46)
[2018-12-12] MEDS: METOCLOPRAMIDE HCL 10 MG TAB PO SCH ×4 (09:00→20:45)
[2018-12-12] MEDS: PANCRELIPASE 6000 ER CAPSULE PO SCH ×3 (09:00→18:01)
[2018-12-12] MEDS: CARVEDILOL 12.5 MG TAB PO SCH ×2 (09:00→20:45)
[2018-12-12] MEDS: PANTOPRAZOLE SOD 40 MG TABEC PO SCH (09:00)
[2018-12-12] MEDS: SERTRALINE HCL 50 MG TAB PO SCH (09:10)
[2018-12-12] MEDS: LISINOPRIL 20 MG TAB PO SCH (09:10)
[2018-12-12] MEDS: CLOPIDOGREL BISULFATE 75 MG TAB PO SCH (09:10)
[2018-12-12] MEDS: AMLODIPINE BESYLATE 10 MG TAB PO SCH (09:10)
--- NOTE | 2018-12-12 09:27 | Diagnostic Imaging Report ---
PROCEDURE: Enteric (nasojejunal) feeding tube placement Procedural Personnel Attending physician(s): Cristian Mckenna MD Fellow physician(s): None Resident physician(s): None Advanced practice provider(s): None Pre-procedure diagnosis: Hyponatremia, abdominal pain Post-procedure diagnosis: Same Indication: Nutritional support Additional clinical history: None Complications: No immediate complications. IMPRESSION: Image guided placement of 12Fr nasojejunal feeding tube. Plan: Tube position is beyond the ligament of Treitz. Tube is ready for immediate use. PROCEDURE SUMMARY: - Enteric (nasojejunal) feeding tube placement under fluoroscopic guidance - Additional procedure(s): None PROCEDURE DETAILS: Pre-procedure Consent: Informed consent for the procedure including risks, benefits and alternatives was obtained and time-out was performed prior to the procedure. Preparation: The site was prepared and draped using maximal sterile barrier technique including cutaneous antisepsis. Anesthesia/sedation Level of anesthesia/sedation: No sedation Enteric tube placement Under fluoroscopic guidance, a 5Fr catheter and 0.035 inch wire were passed through the nose, into the stomach, and then into the jejunum. The catheter was removed over the wire and a 12Fr feeding tube advanced over the wire to the jejunum. Contrast injection confirms intraluminal position of the tip in the jejunum. The tube was secured and capped. Contrast Contrast agent: Gastrografin Contrast volume (mL): 5 Radiation Dose Fluoroscopy time (minutes): 6.1 Reference air kerma (mGy): 210 Additional Details Additional description of procedure: None Equipment details: None Specimens removed: None Estimated blood loss (mL): Less than 10 Attestation Signer name: Cristian Mckenna MD I attest that I was present for the entire procedure. I reviewed the stored images and agree with the report as written. Signed by: Cristian Mckenna MD on 12/12/2018 9:23 AM
--- NOTE | 2018-12-12 10:57 | NUR ---
Dubhoff tube flushed with 10cc of water with no complications, continuous tube feed diet was started at 20mL per hour per Dr. Barraza's orders. Will continue to monitor patient.
--- NOTE | 2018-12-12 15:40 | NUR ---
Nutrition Intervention Note RD Recommendation(s) for Physician: -Rec changing continuous EN formula to Vital AF 1.2, advance as tolerated to goal rate of 75mL/hr (2160kcal, 135g protein, 1460mL water) -Water flushes per MD -Check labs, gastric tolerance and weight daily Plan of Care: RD following, monitoring for tolerance and adequacy, TF rec Nutrition reason for involvement: New TF RD Assessment 12/12 48yo M, who was admitted for pancreatitis. EN was initiated with Glucerna 1.2 @20mL/hr through newly placed nasojejunal feeding tube. Pt was getting Dilaudid for pain q 3hr. Currently NPO with only EN. Visited pt in the room. Pt reported of some abdominal discomfort with nausea. No vomiting episode reported. The last time pt had alcohol was about a month ago. Pt has received prior diet education for pancreatitis. Pt has attempted to lose weight with lifestyle changes. Reported UBW ~370lb. Rec changing current TF order to Vital AF 1.2. With feeding into jejunum, I rec a lower osmolality formula for better tolerance and absorption when the rate increased. Vital AF 1.2 has osmolality of 425mOsm/kg H2O instead of 720mOsm/kg H2O for Glucerna. Will continue to monitor and follow. Principal Problems/Diagnoses: Severe abdominal pain, due to pancreatitis PMH: 1. Diabetes. 2. Hypertension. 3. Chronic pancreatitis. 4. Lymphoma. 5. Hypothyroidism. I/O: +1450mL/ -1300mL IVF: 125mL/hr GI: abdomen soft, round, tender Skin: no pressure wound noted Labs: (12/12) POC glucose 160 -170+ Meds: lactated ringer, insulin, dilaudid, lisinopril, plavix, creon, protonix, reglan, zofran Ht: 77in Wt: 380lb BMI: 45.1kg/m2 IBW: 208lb +/- 10% Malnutrition Evaluation (12/12/2018) The patient does not meet criteria for a specified degree of malnutrition at this time. Will re-evaluate at follow-up as appropriate. Nutrition Prescription (Diet Order): Glucerna 1.2 @20mL/hr Estimated Nutritional Needs: Calories: 2090 2375kcal(22-25kcal/kg/d) Weight used: IBW Protein: 143 237g(1.5-2.5g/kg/d) Weight used: IBW Diet Adequacy: Unable to determine TF was just initiated. Tolerance: Tolerance pending Diet Education Needs Assessment: Diet education indicated, but patient declined. Pt with chronic pancreatitis and has received prior diet education. Nutrition Care Level: moderate (TF) Nutrition Diagnosis: Inadequate oral intake related to chronic pancreatitis as evidenced by pt requiring EN as main source of nutrition. Goal: Patient will meet 75-100% of estimated needs by follow up Progress: Progressing Interventions: Composition, Rate, Route, IVF, Prescription medications Monitoring/Evaluation: Total energy intake, Total protein intake, Formula/Solution, IVF, Prescription medication, Weight change Signed: Genie Brasher MS, RD, LD
--- NOTE | 2018-12-12 17:06 | Progress Note ---
DATE: 12/12/2018 CONSULTING PHYSICIAN: Dr. Wale Hameed with GI. CHIEF COMPLAINT: Abdominal pain. SUBJECTIVE: Seen the patient walking in the room. NG tube in place. IV feedings started, pain controlled with Dilaudid, he denies any chest pain, shortness of breath, chills, fever, nausea, or vomiting. He reports abdominal pain is still consistent, but no spasm. OBJECTIVE: VITAL SIGNS: Temperature 96.1, pulse is 59, blood pressure is 135/83, pulse ox is 93% on room air. GENERAL: No acute distress. HEENT: Atraumatic and normocephalic. LUNGS: Clear to auscultation. CARDIOVASCULAR: Rate and rhythm normal. EXTREMITIES: Active ROM. No edema. Moves all extremities. ABDOMEN: Soft with active bowel sounds. Right upper quadrant pain. NEUROLOGIC: Alert, awake, oriented x3. MUSCULOSKELETAL: Active ROM. SKIN: Dry and intact. No rash noted. LABORATORY DATA: Reviewed. ASSESSMENT: 1. Abdominal pain due to pancreatitis. NG feeding started, continue with IV fluid hydration. We will continue with pain management as needed with Dilaudid. Further recommendation per GI. 2. Acute kidney injury, now resolved with IV fluid hydration. 3. Hypokalemia, replaced. 4. Diabetes type 2. We will continue Accu-Cheks q.6h. and treating with sliding scale. 5. Hypertension, stable. Continue home medications. 6. Chronic pain. Continue Dilaudid. 7. Hypothyroidism, on levothyroxine. 8. History of lymphoma, in remission. 9. Morbid obesity. Lifestyle modification. 10. Deep vein thrombosis prophylaxis, on Lovenox. PLAN: Continue NG feeding, IV fluid hydration, pain management. Dictated by CHANEL Strickland Rose Montero MD MY/MODL /[id number]
[2018-12-12] MEDS: ENOXAPARIN SOD INJ 40 MG/0.4 ML SYR SC SCH (18:01)
--- NOTE | 2018-12-12 19:45 | NUR ---
Dr. Hameed seen pt with orders, increased tube feeds to 40 ml/hr
[2018-12-12] MEDS: BACLOFEN 10 MG TAB PO SCH (20:45)
[2018-12-12] MEDS: GABAPENTIN 300 MG CAP PO SCH (20:45)
[2018-12-13] VITALS (8 sets, daily range): BP systolic 141–158; BP diastolic 74–99
[2018-12-13] MEDS: ONDANSETRON HCL INJ 2MG/ML 2ML 2 MG/ML VIAL IV PRN ×3 (03:35→17:26)
[2018-12-13] MEDS: HYDROMORPHONE 1MG/1ML INJ IV PRN ×6 (03:35→21:22)
[2018-12-13] MEDS: LACTATED RINGER'S 1,000 ML IV SCH ×3 (06:16→22:57)
[2018-12-13] MEDS: LEVOTHYROXINE SODIUM 100 MCG TAB PO SCH (06:16)
[2018-12-13] MEDS: AMLODIPINE BESYLATE 10 MG TAB PO SCH (08:30)
[2018-12-13] MEDS: METOCLOPRAMIDE HCL 10 MG TAB PO SCH ×4 (08:30→21:48)
[2018-12-13] MEDS: INSULIN LISPRO 100 UNIT/1 ML 3ML VIAL SQ SCH ×4 (08:30→21:48)
[2018-12-13] MEDS: CLOPIDOGREL BISULFATE 75 MG TAB PO SCH (08:30)
[2018-12-13] MEDS: SERTRALINE HCL 50 MG TAB PO SCH (08:30)
[2018-12-13] MEDS: PANTOPRAZOLE SOD 40 MG TABEC PO SCH (08:30)
[2018-12-13] MEDS: PANCRELIPASE 6000 ER CAPSULE PO SCH ×3 (08:30→17:00)
[2018-12-13] MEDS: CARVEDILOL 12.5 MG TAB PO SCH ×2 (08:30→21:48)
[2018-12-13] MEDS: LISINOPRIL 20 MG TAB PO SCH (08:30)
[2018-12-13] MEDS: ENOXAPARIN SOD INJ 40 MG/0.4 ML SYR SC SCH (17:00)
--- NOTE | 2018-12-13 17:18 | Progress Note ---
DATE: 12/13/2018 CONSULTING PHYSICIAN: Wale Hameed, GI specialist. CHIEF COMPLAINT: Abdominal pain. SUBJECTIVE: The patient is in bed with no acute distress. NJ tube in place with feeding at 40 mL/h. He reports abdominal pain is improving, rating at 5/10. He had an episode of nausea this morning, improved with Zofran. Had a bowel movement. No other complaints. OBJECTIVE: VITAL SIGNS: Temperature 95.9, pulse is 66, heart rate is 19, blood pressure 147/93, and pulse ox is 97%. GENERAL: No acute distress. Obese. HEENT: Normocephalic and atraumatic. PERRLA. LUNGS: Clear to auscultation. NECK: Supple. Midline. CARDIOVASCULAR: Heart rate and rhythm normal. EXTREMITIES: Active ROM. No edema. ABDOMEN: Soft with active bowel sounds. Mild tenderness in the right upper quadrant. NEUROLOGIC: Alert, awake, and oriented x3. SKIN: Dry and intact. No rash. LABORATORY DATA: Reviewed. ASSESSMENT AND PLAN: 1. Abdominal pain due to pancreatitis, NJ feeding increased to 40 mL/h. We will continue pain management with Dilaudid as needed. Further recommendations per GI. 2. Hypokalemia, replaced. 3. Acute kidney injury, improved. 4. Diabetes type 2. Continue with sliding scale insulin. 5. Hypertension, stable. Continue home medications. 6. Hypothyroidism. Continue home medications. 7. Chronic pain. Continue Dilaudid as needed. 8. History of lymphoma in remission. 9. Morbid obesity. Lifestyle modification discussed. 10. Deep vein thrombosis prophylaxis. He is on Lovenox. PLAN: Plan is to continue an NJ feeding increased to 40 mL/h per GI. Continue IV fluid hydration and pain management as needed. Further recommendations per GI. Dictated by CHANEL Strickland Rose Montero MD MY/MODL /[id number]
--- NOTE | 2018-12-13 19:00 | NUR ---
rounded with productivity engineer nurse, patient aware of change and in no distress. call amaya within reach and bed in lowest position.
[2018-12-13] MEDS: BACLOFEN 10 MG TAB PO SCH (21:48)
[2018-12-13] MEDS: GABAPENTIN 300 MG CAP PO SCH (21:48)
[2018-12-14] VITALS (8 sets, daily range): BP systolic 122–173; BP diastolic 53–95
[2018-12-14] MEDS: ONDANSETRON HCL INJ 2MG/ML 2ML 2 MG/ML VIAL IV PRN ×4 (00:28→20:14)
[2018-12-14] MEDS: HYDROMORPHONE 1MG/1ML INJ IV PRN ×6 (00:28→20:14)
[2018-12-14] MEDS: LACTATED RINGER'S 1,000 ML IV SCH ×3 (06:28→23:49)
[2018-12-14] MEDS: LEVOTHYROXINE SODIUM 100 MCG TAB PO SCH (06:29)
[2018-12-14] MEDS: PANTOPRAZOLE SOD 40 MG TABEC PO SCH (07:30)
[2018-12-14] MEDS: INSULIN LISPRO 100 UNIT/1 ML 3ML VIAL SQ SCH ×4 (07:30→21:00)
[2018-12-14] MEDS: PANCRELIPASE 6000 ER CAPSULE PO SCH ×3 (07:30→17:10)
[2018-12-14] MEDS: METOCLOPRAMIDE HCL 10 MG TAB PO SCH ×4 (07:30→21:48)
[2018-12-14] MEDS: AMLODIPINE BESYLATE 10 MG TAB PO SCH (09:00)
[2018-12-14] MEDS: SERTRALINE HCL 50 MG TAB PO SCH (09:00)
[2018-12-14] MEDS: CARVEDILOL 12.5 MG TAB PO SCH ×2 (09:00→21:47)
[2018-12-14] MEDS: CLOPIDOGREL BISULFATE 75 MG TAB PO SCH (09:00)
[2018-12-14] MEDS: LISINOPRIL 20 MG TAB PO SCH (09:00)
--- NOTE | 2018-12-14 16:41 | NUR ---
Nutrition Follow-up Note RD Recommendation(s) for Physician: -If unable to tolerate Glucerna 1.2, rec changing continuous EN formula to Vital AF 1.2, advance as tolerated to goal rate of 75mL/hr (2160kcal, 135g protein, 1460mL water) -Water flushes per MD -Check labs, tolerance and weight daily Plan of Care: RD following, monitoring for tolerance and adequacy, TF rec Nutrition reason for involvement: Follow up RD Assessment 12/14 - Pt was discussed during AM rounds. TF has been advanced to 40mL/hr. However, pt had a vomiting episode with the feeding. Still receiving Dilaudid for pain. TF has been on hold. Communicated TF rec with JENNY Oates. Will continue to monitor and follow. 12/12 48yo M, who was admitted for pancreatitis. EN was initiated with Glucerna 1.2 @20mL/hr through newly placed nasojejunal feeding tube. Pt was getting Dilaudid for pain q 3hr. Currently NPO with only EN. Visited pt in the room. Pt reported of some abdominal discomfort with nausea. No vomiting episode reported. The last time pt had alcohol was about a month ago. Pt has received prior diet education for pancreatitis. Pt has attempted to lose weight with lifestyle changes. Reported UBW ~370lb. Rec changing current TF order to Vital AF 1.2. With feeding into jejunum, I rec a lower osmolality formula for better tolerance and absorption when the rate increased. Vital AF 1.2 has osmolality of 425mOsm/kg H2O instead of 720mOsm/kg H2O for Glucerna. Will continue to monitor and follow. Principal Problems/Diagnoses: Severe abdominal pain, due to pancreatitis PMH: 1. Diabetes. 2. Hypertension. 3. Chronic pancreatitis. 4. Lymphoma. 5. Hypothyroidism. I/O: no intake recorded/ - 1800mL GI: abdomen soft, round, large, +BM Skin: no pressure wound noted Labs: No labs for 12/14 (12/12) POC glucose 160 -170+ Meds: dilaudid, lactated ringer, creon, insulin, reglan, lisinopril, plavix, zofran, protonix, synthroid Ht: 77in Wt: 380lb BMI: 45.1kg/m2 IBW: 208lb +/- 10% Malnutrition Evaluation (12/12/2018) The patient does not meet criteria for a specified degree of malnutrition at this time. Will re-evaluate at follow-up as appropriate. Nutrition Prescription (Diet Order): Glucerna 1.2 @20mL/hr Estimated Nutritional Needs: Calories: 2090 2375kcal (22-25kcal/kg/d) Weight used: IBW Protein: 143 237g (1.5-2.5g/kg/d) Weight used: IBW Diet Adequacy: Not meeting protein and calorie needs Tolerance: Not tolerating per RN Diet Education Needs Assessment: Diet education indicated, but patient declined. Pt with chronic pancreatitis and has received prior diet education. Nutrition Care Level: moderate (TF) Nutrition Diagnosis: Inadequate oral intake related to chronic pancreatitis as evidenced by pt requiring EN as main source of nutrition. Goal: Patient will meet 75-100% of estimated needs by follow up Progress: Not progressing Interventions: Composition, Rate, Route, IVF, Prescription medications Monitoring/Evaluation: Total energy intake, Total protein intake, Formula/Solution, IVF, Prescription medication, Weight change Signed: Genie Brasher MS, RD, LD
--- NOTE | 2018-12-14 17:04 | Progress Note ---
DATE: 12/14/2018 CONSULTING PHYSICIAN: Wale Hameed MD, GI. CHIEF COMPLAINT: Abdominal pain. SUBJECTIVE: The patient complaining of lower abdomen cramping and diarrhea, most likely due to NJ tube feeding; rate decreased to 20 mL/h. Reports right upper quadrant pain has improved, at 5/10. He denies any nausea, vomiting, chest pain, shortness of breath, fever, or chills. He reports using less pain medication overnight; and is eager to have the NG tube feeding stopped. OBJECTIVE: VITAL SIGNS: Temperature is 97.4, pulse is 62, respirations 20, blood pressure 151/95, and pulse ox is 98% on room air. GENERAL: No acute distress. No respiratory distress. HEENT: Atraumatic and normocephalic. PERRLA. NECK: Supple and midline. LUNGS: Clear to auscultation. CARDIOVASCULAR: Heart rate and rhythm normal. EXTREMITIES: Active ROM. No edema. ABDOMEN: Soft with active bowel sounds, complaining of lower abdomen cramping. NEUROLOGIC: Alert, awake, and oriented x3. SKIN: Dry and intact. LABORATORY: Reviewed. ASSESSMENT AND PLAN: 1. Abdominal pain due to pancreatitis. NG tube feeding decreased to 20 mL/h. We will continue with IV fluid hydration and pain management as needed. Anticipate NJ feeding stop tomorrow and try clear liquids per GI. 2. Hypokalemia, has replaced. 3. Acute kidney injury, has resolved with IV fluids. 4. Diabetes type 2. Continue sliding scale insulin as needed. 5. Hypertension. Continue home medication and p.r.n. medications. 6. Hypothyroidism. Continue levothyroxine. 7. Chronic pain. Continue Dilaudid as needed. 8. History of lymphoma in remission. 9. Morbid obesity. Lifestyle modification discussed. 10. Deep vein thrombosis prophylaxis. He is on Lovenox. PLAN: Plan is to continue IV fluid hydration. Decrease NG feeding to 20 mL/h. Pain management with Dilaudid as needed. Further recommendation per GI. Dictated by CHANEL Strickland Shaniceching Alexandre Montero MD MY/MODL /[id number] BEN
[2018-12-14] MEDS: ENOXAPARIN SOD INJ 40 MG/0.4 ML SYR SC SCH (17:10)
--- NOTE | 2018-12-14 18:55 | NUR ---
rounded with hourly shift manager nurse, patient aware of change and in no distress. call amaya within reach and bed in lowest position.
[2018-12-14] MEDS: BACLOFEN 10 MG TAB PO SCH (21:47)
[2018-12-14] MEDS: GABAPENTIN 300 MG CAP PO SCH (21:48)
[2018-12-15] VITALS: BP 133/74
[2018-12-15] MEDS: ONDANSETRON HCL INJ 2MG/ML 2ML 2 MG/ML VIAL IV PRN ×3 (02:11→12:15)
[2018-12-15] MEDS: HYDROMORPHONE 1MG/1ML INJ IV PRN ×2 (02:11→06:36)
[2018-12-15 04:00] VITALS: BP 145/83
[2018-12-15 05:21] LABS: BASOPHILS % 0.5 % (0.0-1.0); EOSINOPHILS # (AUTO) 0.1 (0.0-0.4); EOSINOPHILS % 2.4 % (0.0-6.0); HEMATOCRIT 46.1 % (38.2-49.6); HEMOGLOBIN 15.8 g/dL (14.0-18.0); LYMPHOCYTES # (AUTO) 1.2 (1.0-3.2); LYMPHOCYTES % 28.6 % (18.0-39.1); MEAN CORPUSCULAR HEMOGLOBIN 30.5 pg (28-32); MEAN CORPUSCULAR HGB CONC 34.3 g/dL (31-35); MONOCYTES # (AUTO) 0.5 (0.2-0.8); MONOCYTES % 10.6 % (4.4-11.3); NEUTROPHILS # (AUTO) 2.4 (2.1-6.9); NEUTROPHILS % 57.2 % (38.7-80.0); PLATELET COUNT 105 x10e3/uL (140-360); RED BLOOD COUNT 5.18 x10e6/uL (4.3-5.7); RED CELL DISTRIBUTION WIDTH 13.2 % (11.7-14.4)
[2018-12-15 05:38] LABS: ALANINE AMINOTRANSFERASE 33 IU/L (0-55); ALBUMIN 3.1 g/dL (3.5-5.0); ALKALINE PHOSPHATASE 71 IU/L (40-150); ANION GAP 11.2 mmol/L (8-16); BILIRUBIN,DIRECT 0.4 mg/dL (0.0-0.5); BLOOD UREA NITROGEN 10 mg/dL (7-26); BUN/CREATININE RATIO 11 (6-25); CALCIUM 9.3 mg/dL (8.4-10.2); CARBON DIOXIDE 27 mmol/L (22-29); CHLORIDE 99 mmol/L (98-107); CHOL/HDL RATIO 12.1 (3.9-4.7); CHOLESTEROL 241 MD/DL (0-199); CREATININE, SERUM 0.95 mg/dL (0.72-1.25); EST GLOMERULAR FILTRATION RATE > 60 ML/MIN (60-); GLUCOSE 189 mg/dL (74-118); HDL CHOLESTEROL 20 MG/DL (40-60); LIPASE 14 U/L (8-78); POTASSIUM 3.2 mmol/L (3.5-5.1); SODIUM 134 mmol/L (136-145); TRIGLYCERIDES 605 MG/DL (0-149)
[2018-12-15] MEDS: LEVOTHYROXINE SODIUM 100 MCG TAB PO SCH (05:53)
[2018-12-15 06:56] LABS: PLATELET ESTIMATE MODERATELY DECREASED
[2018-12-15 06:57] LABS: PLATELET MORPHOLOGY COMMENT FEW LARGE; RBC MORPHOLOGY COMMENT NORMAL
[2018-12-15] MEDS: INSULIN LISPRO 100 UNIT/1 ML 3ML VIAL SQ SCH ×3 (07:30→16:30)
[2018-12-15 08:48] VITALS: BP 183/103
[2018-12-15] MEDS: LACTATED RINGER'S 1,000 ML IV SCH ×2 (10:12→12:03)
[2018-12-15] MEDS: PANTOPRAZOLE SOD 40 MG TABEC PO SCH (10:13)
[2018-12-15] MEDS: AMLODIPINE BESYLATE 10 MG TAB PO SCH (10:13)
[2018-12-15] MEDS: METOCLOPRAMIDE HCL 10 MG TAB PO SCH ×3 (10:13→16:41)
[2018-12-15] MEDS: CARVEDILOL 12.5 MG TAB PO SCH (10:13)
[2018-12-15] MEDS: CLOPIDOGREL BISULFATE 75 MG TAB PO SCH (10:13)
[2018-12-15] MEDS: PANCRELIPASE 6000 ER CAPSULE PO SCH ×3 (10:13→16:41)
[2018-12-15] MEDS: SERTRALINE HCL 50 MG TAB PO SCH (10:13)
[2018-12-15] MEDS: LISINOPRIL 20 MG TAB PO SCH (10:13)
--- NOTE | 2018-12-15 10:30 | NUR ---
Spoke to Dr. Montero regarding discharge plan. He states that pt was just started on CLD. will advance if pt tolerates and hoping pt will be able to discharge soon.
[2018-12-15 12:00] VITALS: BP 168/120
[2018-12-15] MEDS: POTASSIUM CHLORIDE 20 MEQ TAB CR PO SCH ×2 (12:02→14:00)
[2018-12-15] MEDS: CLONIDINE HCL 0.1 MG TAB PO PRN (12:27)
[2018-12-15] MEDS ORDERED: HYDROMORPHONE 1MG/1ML INJ IV ONE (12:30)
[2018-12-15] MEDS ORDERED: HYDROMORPHONE HCL 2 MG TAB PO PRN (15:45)
[2018-12-15 16:11] VITALS: BP 128/80
[2018-12-15] MEDS: ENOXAPARIN SOD INJ 40 MG/0.4 ML SYR SC SCH (16:41)
[2018-12-15 17:07] VITALS: BP 128/80
== END 2018-12-15 20:00 | disposition home or self-care (01) | DRG 439 ==
LOC: ER 00:12 → ERHOLD 03:48 → IMCU 04:49 → OBSVTOIN 12-09 13:12 → MED/SURG2 12-09 21:37
PROVIDERS: ADMIT Internal Medicine; ATTEND Internal Medicine
PROC: 0DB78ZX Excision of Stomach, Pylorus, Via Natural or Artificial Opening Endoscopic, Diagnostic (ICD-10-PCS; 2018-12-08)
PROC: 0DB38ZX Excision of Lower Esophagus, Via Natural or Artificial Opening Endoscopic, Diagnostic (ICD-10-PCS; principal; 2018-12-08 14:30)
PROC: 0DHA7UZ Insertion of Feeding Device into Jejunum, Via Natural or Artificial Opening (ICD-10-PCS; 2018-12-12)
DX: K85.90 Acute pancreatitis without necrosis or infection, unspecified (principal); N17.9 Acute kidney failure, unspecified; Z68.42 Body mass index [BMI] 45.0-49.9, adult; E87.6 Hypokalemia; E11.9 Type 2 diabetes mellitus without complications
CPT/HCPCS: 36415; 43239; 49441; 74177; 74470; 80048; 80053; 80061; 80076; 81001; 82948; 83690; 85025; 88305; 88312; 94660; 96372; 99284; G0378; J1170; J1650; J1817; J2250; J2270; J2405; J3480; J7030; J7042; J7121; Q9967

== ENCOUNTER 2019-01-04 18:56 | Inpatient (IN) | payer BC ==
[~2019-01-04] VITALS: Ht 195.6 cm; Wt 162.5 kg
[2019-01-04] MEDS ORDERED: ONDANSETRON HCL INJ 2MG/ML 2ML 2 MG/ML VIAL IV NR (19:30)
[2019-01-04] MEDS ORDERED: SODIUM CHLORIDE 0.9% 1000ML 1,000 ML IV SCH (19:30)
[2019-01-04] MEDS ORDERED: PANTOPRAZOLE 40 MG 10ML VIAL IV NR (19:30)
[2019-01-04 19:54] LABS: CLARITY,URINE SL CLOUDY (CLEAR); COLOR,URINE YELLOW (YELLOW); LEUKOCYTE ESTERASE ,URINE NEGATIVE (NEGATIVE); NITRITE,URINE NEGATIVE (NEGATIVE); PROTEIN,URINE DIPSTICK 2+ (NEGATIVE); URINE UROBILINOGEN 0.2 mg/dL (0.2 - 1)
[2019-01-04 19:55] LABS: BILIRUBIN,URINE MODERATE (NEGATIVE); KETONES,URINE 3+ (NEGATIVE)
[2019-01-04 20:00] LABS: AMYLASE 68 U/L (25-125); LIPASE 60 U/L (8-78)
[2019-01-04 20:03] LABS: ALBUMIN 3.7 g/dL (3.5-5.0); ALBUMIN/GLOBULIN RATIO 0.5 (0.8-2.0); ALKALINE PHOSPHATASE 72 IU/L (40-150); BLOOD UREA NITROGEN 16 mg/dL (7-26); BUN/CREATININE RATIO 16 (6-25); CALCIUM 10.9 mg/dL (8.4-10.2); CHLORIDE 91 mmol/L (98-107); EST GLOMERULAR FILTRATION RATE > 60 ML/MIN (60-); GLUCOSE 175 mg/dL (74-118); POTASSIUM 3.4 mmol/L (3.5-5.1); SODIUM 131 mmol/L (136-145)
[2019-01-04 20:16] LABS: BACTERIA,URINE RARE /HPF; RBC,URINE 0-5 /HPF (0-5)
[2019-01-04 20:32] LABS: CREATINE KINASE 74 IU/L (30-200)
[2019-01-04 20:34] LABS: BASOPHILS % 0.3 % (0.0-1.0); EOSINOPHILS # (AUTO) 0.1 (0.0-0.4); EOSINOPHILS % 0.9 % (0.0-6.0); HEMATOCRIT 47.4 % (38.2-49.6); HEMOGLOBIN 19.1 g/dL (14.0-18.0); LYMPHOCYTES # (AUTO) 1.1 (1.0-3.2); LYMPHOCYTES % 11.7 % (18.0-39.1); MEAN CORPUSCULAR HEMOGLOBIN 35.6 pg (28-32); MEAN CORPUSCULAR HGB CONC 40.3 g/dL (31-35); MEAN CORPUSCULAR VOLUME 88.4 fL (81-99); MONOCYTES # (AUTO) 0.4 (0.2-0.8); MONOCYTES % 3.8 % (4.4-11.3); NEUTROPHILS # (AUTO) 7.6 (2.1-6.9); NEUTROPHILS % 82.9 % (38.7-80.0); PLATELET COUNT 193 x10e3/uL (140-360); RED BLOOD COUNT 5.36 x10e6/uL (4.3-5.7); RED CELL DISTRIBUTION WIDTH 13.1 % (11.7-14.4)
[2019-01-04 20:44] LABS: ALANINE AMINOTRANSFERASE < 30 IU/L (0-55)
--- NOTE | 2019-01-04 21:33 | Diagnostic Imaging Report ---
EXAM: CT Abdomen and Pelvis WITH contrast INDICATION: ^ABD PAIN ^[id number] ^2009 COMPARISON: CT dated 12/07/2018 TECHNIQUE: Abdomen and pelvis were scanned utilizing a multidetector helical scanner from the lung base to the pubic symphysis after administration of IV contrast. Coronal and sagittal reformations were obtained. Dose modulation, iterative reconstruction, and/or weight based adjustment of the mA/kV was utilized to reduce the radiation dose to as low as reasonably achievable. Routine protocol was performed. Scan was performed when during portal venous phase. IV CONTRAST: 100 mL of Isovue-370 ORAL CONTRAST: Water COMPLICATIONS: None RADIATION DOSE: Total DLP: 1330.39 mGy*cm Estimated effective dose: (DLP x 0.015 x size factor) mSv CTDIvol has been reviewed. It is below the limits set by the Radiation Protocol Committee (RPC). FINDINGS: LINES and TUBES: None. LOWER THORAX: Unremarkable HEPATOBILIARY: No focal hepatic lesions. No biliary ductal dilation. GALLBLADDER: No radio-opaque stones or sludge. No wall thickening. SPLEEN: No splenomegaly. Unchanged exophytic splenic cyst. PANCREAS: No focal masses or ductal dilatation. Mild peripancreatic fat stranding. There is also trace air visualized in an chronic neck. ADRENALS: No adrenal nodules KIDNEYS/URETERS: Kidneys enhance symmetrically. No hydronephrosis. No cystic or solid mass lesions. No stones. GI TRACT: No abnormal distention, wall thickening, or evidence of bowel obstruction. Appendix is normal. PELVIC ORGANS/BLADDER: Unremarkable. LYMPH NODES: No lymphadenopathy. 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 PERITONEUM / RETROPERITONEUM: No free air or fluid. BONES: Degenerative changes of spine. Unchanged mild anterior wedging of T11 and T12 vertebral bodies. SOFT TISSUES: Unremarkable. IMPRESSION: 1. Peripancreatic mild fat stranding, representing acute pancreatitis. Trace air in the area of pancreatic neck, raising the possibility of necrotizing pancreatitis. Signed by: Dr. Dinh Henderson MD on 01/04/2019 9:30 PM
[2019-01-04 21:34] LABS: ANION GAP 19.4 mmol/L (8-16); CARBON DIOXIDE 24 mmol/L (22-32)
[2019-01-04] MEDS ORDERED: HYDROMORPHONE 1MG/1ML INJ IV STA (21:59)
[2019-01-04] MEDS ORDERED: LEVOFLOXACIN 750MG/D5W 150ML 150 ML IV SCH (22:00)
[2019-01-04] MEDS ORDERED: DEXTROSE 50% SYRINGE 50 ML IV PRN (22:30)
[2019-01-04] MEDS ORDERED: IOPAMIDOL 370 MG/ML 200 ML INFUS..BTL INJ ONE (22:34)
[2019-01-04] MEDS ORDERED: SODIUM CHLORIDE 0.9% 50ML 50 ML ONE (22:34)
[2019-01-04] MEDS: SODIUM CHLORIDE 0.9% 1000ML 1,000 ML IV SCH (22:56)
[2019-01-05] VITALS (14 sets, daily range): BP systolic 124–158; BP diastolic 76–99
[2019-01-05] MEDS ORDERED: HYDRALAZINE HCL 20 MG/ML VIAL IV PRN
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
[2019-01-05] MEDS: METRONIDAZOLE 500MG/NS 100ML 100 ML IV SCH ×2 (01:47→05:58)
--- NOTE | 2019-01-05 02:25 | NUR ---
PT IS TRANSFERRED FROM ER .PT IS AOX3 RESPIRATIONS ARE EVEN AND UNLABORED SKIN WARM AND DRY TO TOUCH.DX PANCREATITIS AND ABDOMINAL PAIN PT C/O ABD PAIN AND NAUSEA PHYSICAL ASSESSMENT DONE PT IS NPO .CALL LIGHT WITH IN REACH .CONTINUE TO MONITOR
[2019-01-05] MEDS: ONDANSETRON HCL INJ 2MG/ML 2ML 2 MG/ML VIAL IV PRN ×5 (02:39→18:21)
[2019-01-05] MEDS: HYDROMORPHONE 1MG/1ML INJ IV PRN ×3 (02:39→10:51)
[2019-01-05] MEDS ORDERED: HYDROMORPHONE HC2 MG PO (02:51)
[2019-01-05] MEDS ORDERED: SPIRONOLACTONE25 MG PO (02:51)
[2019-01-05] MEDS ORDERED: VALSARTAN-HCTZ1 EAC3 PO (02:51)
[2019-01-05] MEDS ORDERED: JARDIANCE25 MG PO (02:59)
[2019-01-05] MEDS: SODIUM CHLORIDE 0.9% 1000ML 1,000 ML IV SCH ×5 (05:58→22:44)
--- NOTE | 2019-01-05 07:00 | NUR ---
PATIENT IS AWAKE AND IN STABLE CONDITION WITH NO S/S OF RESPIRATORY DISTRESS. PATIENT C/O RUQ PAIN- PAIN MEDICATION RECENTLY GIVEN TO THE PATIENT. CALL LIGHT IS WITHIN REACH, PATIENT INSTRUCTED TO CALL FOR ASSISTANCE NEEDED.
--- NOTE | 2019-01-05 07:16 | NUR ---
BEDSIDE REPORT GIVEN TO THE ONCOMING NURSE.
[2019-01-05] MEDS ORDERED: INSULIN REGULAR, HUMAN 100 UNIT/1 ML 3ML VIAL SQ SCH (07:30)
[2019-01-05 08:02] LABS: BASOPHILS % 0.3 % (0.0-1.0); EOSINOPHILS # (AUTO) 0.1 (0.0-0.4); EOSINOPHILS % 1.2 % (0.0-6.0); HEMATOCRIT 43.3 % (38.2-49.6); HEMOGLOBIN 15.8 g/dL (14.0-18.0); LYMPHOCYTES # (AUTO) 1.4 (1.0-3.2); LYMPHOCYTES % 18.9 % (18.0-39.1); MEAN CORPUSCULAR HEMOGLOBIN 32.4 pg (28-32); MEAN CORPUSCULAR HGB CONC 36.5 g/dL (31-35); MEAN CORPUSCULAR VOLUME 88.7 fL (81-99); MONOCYTES # (AUTO) 0.4 (0.2-0.8); MONOCYTES % 5.5 % (4.4-11.3); NEUTROPHILS # (AUTO) 5.4 (2.1-6.9); NEUTROPHILS % 73.7 % (38.7-80.0); PLATELET COUNT 116 x10e3/uL (140-360); RED BLOOD COUNT 4.88 x10e6/uL (4.3-5.7); RED CELL DISTRIBUTION WIDTH 13.4 % (11.7-14.4)
[2019-01-05 08:27] LABS: ALANINE AMINOTRANSFERASE 13 IU/L (0-55); ALBUMIN 3.1 g/dL (3.5-5.0); ALBUMIN/GLOBULIN RATIO 0.7 (0.8-2.0); ALKALINE PHOSPHATASE 56 IU/L (40-150); AMYLASE 107 U/L (25-125); ANION GAP 34.8 mmol/L (8-16); BLOOD UREA NITROGEN 15 mg/dL (7-26); BUN/CREATININE RATIO 12 (6-25); CALCIUM 9.6 mg/dL (8.4-10.2); CHLORIDE 99 mmol/L (98-107); CREATININE, SERUM 1.26 mg/dL (0.72-1.25); EST GLOMERULAR FILTRATION RATE > 60 ML/MIN (60-); GLUCOSE 174 mg/dL (74-118); LIPASE 83 U/L (8-78); POTASSIUM 3.8 mmol/L (3.5-5.1); SODIUM 137 mmol/L (136-145)
[2019-01-05 08:42] LABS: CARBON DIOXIDE 7 mmol/L (22-29)
[2019-01-05] MEDS ORDERED: LACTATED RINGER'S 1,000 ML IV ONE (09:00)
[2019-01-05] MEDS ORDERED: LACTATED RINGER'S 1,000 ML IV SCH (09:00)
--- NOTE | 2019-01-05 09:02 | NUR ---
CALLED AND SPOKE WITH DR. MCGOWAN AT 0850 REGARDING CRITICAL LAB OF CO2 RESULT 7- NEW ORDERS RECEIVED AND TO CALL DR. MCGOWAN BACK WITH LIPID PANEL RESULTS. AWAITING LIPID PANEL RESULTS. PLACED PATIENT ON O2 AT 2L NC.
[2019-01-05] MEDS: MEROPENEM 500MG/ NS 50ML 50 ML IV SCH ×3 (09:04→19:57)
[2019-01-05 09:34] LABS: CHOL/HDL RATIO 37.1 (3.9-4.7); CHOLESTEROL 445 MD/DL (0-199); HDL CHOLESTEROL 12 MG/DL (40-60)
--- NOTE | 2019-01-05 09:48 | Diagnostic Imaging Report ---
EXAM: US ABDOMEN COMPLETE DATE: 01/05/2019 12:00 AM INDICATION: Pancreatitis COMPARISON: CT abdomen and pelvis of 01/04/2019 TECHNIQUE: Transverse and longitudinal blanc scale and color doppler sonographic images of the upper abdomen were obtained. FINDINGS: There is no evidence of fluid or masses seen in the area of clinical concern in the right lower quadrant. LIVER 18.9 cm in the right midclavicular line. Increased echogenicity of the liver with normal contour, no masses. SPLEEN 13.5 cm in maximum diameter. Normal echogenicity, no masses. GALLBLADDER No gallbladder wall thickening, distension, stone, or pericholecystic fluid. NEgative reported sonographic Hurt's sign. Gallbladder wall measures 3 mm BILE DUCTS No intra nor extra-hepatic biliary dilation. Common bile duct measures 3mm PANCREAS: Not visualized due to overlying bowel gas. RIGHT KIDNEY: 12.5 cm Echogenicity: Normal Collecting System: No hydronephrosis Stones: None Cyst/Mass: None LEFT KIDNEY: 11.5 cm Echogenicity: Normal Collecting System: No hydronephrosis Stones: None Cyst/Mass: None VESSELS: Aorta: Not visualized due to overlying bowel gas. Inferior Vena Cava: Normal. Main Portal Vein: Not visualized due to overlying bowel gas. FREE FLUID: None IMPRESSION: Hepatomegaly and hepatic steatosis. No sonographic evidence of cholelithiasis or cholecystitis. Pancreas not visualized due to overlying bowel gas. Signed by: Cristian Mckenna MD on 01/05/2019 9:44 AM
[2019-01-05 10:33] LABS: TRIGLYCERIDES 2166 MG/DL (0-149)
[2019-01-05] MEDS ORDERED: POTASSIUM CHLORIDE 20MEQ/100ML 200 ML IV PRN (10:45)
[2019-01-05] MEDS ORDERED: MAGNESIUM SULF 1GRAM/DEXTROSE 100 ML IV PRN (10:45)
[2019-01-05] MEDS ORDERED: HYDROMORPHONE 1MG/1ML INJ IV PRN (11:45)
[2019-01-05] MEDS: ENOXAPARIN SOD INJ 40 MG/0.4 ML SYR SC SCH ×2 (12:14→20:05)
--- NOTE | 2019-01-05 12:26 | NUR ---
TRANSFER REPORT GIVEN TO THE ICU NURSE AT 1224- PATIENT TO TRANSFER TO ROOM 190.
--- NOTE | 2019-01-05 12:44 | NUR ---
PATIENT TRANSFERRING TO ICU ROOM 190. PATIENT OFF THE UNIT PER WHEELCHAIR AT 1239 IN STABLE CONDITION WITH NO S/S OF RESPIRATOR DISTRESS. O2 APPLIED AT 2L NC. IV SALINE LOCKED AND LR FLUIDS DC PER DR. MCGOWAN'S ORDERS. ALL PERSONAL ITEMS TAKEN WITH THE PATIENT UPON TRANSFER TO ICU. COURTESY CALL PLACED OUT TO THE PATIENT'S - THE PATIENT'S IS AWARE PATIENT IS NOW IN ROOM 190 IN ICU.
[2019-01-05] MEDS: DEXTROSE 5%/0.45% SOD CHL 1,000 ML IV SCH ×2 (13:45→22:13)
[2019-01-05] MEDS: HYDROMORPHONE 2MG/ML 2 MG/ML ML IV PRN ×3 (13:51→22:13)
[2019-01-05 14:36] LABS: ANION GAP 30.7 mmol/L (8-16); BLOOD UREA NITROGEN 13 mg/dL (7-26); BUN/CREATININE RATIO 11 (6-25); CALCIUM 9.5 mg/dL (8.4-10.2); CARBON DIOXIDE 11 mmol/L (22-29); CHLORIDE 101 mmol/L (98-107); CREATININE, SERUM 1.16 mg/dL (0.72-1.25); EST GLOMERULAR FILTRATION RATE > 60 ML/MIN (60-); GLUCOSE 163 mg/dL (74-118); POTASSIUM 3.7 mmol/L (3.5-5.1); SODIUM 139 mmol/L (136-145)
[2019-01-05] MEDS: PANTOPRAZOLE 40 MG 10ML VIAL IV SCH (16:31)
[2019-01-05 18:56] LABS: ANION GAP 21.8 mmol/L (8-16); CALCIUM 9.6 mg/dL (8.4-10.2); CREATININE, SERUM 1.34 mg/dL (0.72-1.25); POTASSIUM 3.8 mmol/L (3.5-5.1)
--- NOTE | 2019-01-05 22:22 | Consultation ---
DATE OF CONSULTATION: 01/05/2019 HISTORY OF PRESENT ILLNESS: This is a 48-year-old, who presented to the hospital because of abdominal pain. He was found to have acute pancreatitis, this is his 2nd attack. His triglyceride is 2100. He is in ICU. PAST MEDICAL PROBLEMS: Significant for diabetes. ALLERGIES: NONE. MEDICATIONS: On admission are supposed to be on amlodipine, albuterol, , Plavix, Jardiance, fenofibrate, lisinopril, levothyroxine, also on pantoprazole, metoclopramide, sertraline, ursodiol, and spironolactone as well as hydrochlorothiazide and insulin. SOCIAL HISTORY: No alcohol use. FAMILY HISTORY: Noncontributory. REVIEW OF SYSTEMS: Denies any chest pain or shortness of breath. Denies any dysphagia or odynophagia. Denies any dysuria, hematuria, or any kind of syncopal episodes. PHYSICAL EXAMINATION: GENERAL: Awake, alert, appears to be stable, in no acute distress at this point. VITAL SIGNS: Afebrile currently stable vital signs. HEAD, EYES, EARS, NOSE, AND THROAT: Normocephalic, atraumatic. Sclerae are anicteric. NECK: Supple. HEART: Regular. LUNGS: Clear. ABDOMEN: Soft. There is no distention at this point. EXTREMITIES: No cyanosis. No clubbing. LAB VALUES: CBC appears to be okay and the bicarb is 11, BUN 13, creatinine of 1.16.. CAT scan shows acute pancreatitis with possibly early necrotizing pancreatitis. 1. Acute pancreatitis, probably secondary to hypertriglyceridemia. 2. History of diabetes. RECOMMENDATIONS: Keep n.p.o., IV fluids, as well as pain control; and follow labs and clinically. Wale Hameed MD DHD/MODL /[id number] cc: MD Dr. Fili Nunez
[2019-01-05 22:46] LABS: ANION GAP 16.3 mmol/L (8-16); BLOOD UREA NITROGEN 13 mg/dL (7-26); BUN/CREATININE RATIO 11 (6-25); CALCIUM 9.5 mg/dL (8.4-10.2); CARBON DIOXIDE 23 mmol/L (22-29); CHLORIDE 104 mmol/L (98-107); EST GLOMERULAR FILTRATION RATE > 60 ML/MIN (60-); GLUCOSE 88 mg/dL (74-118); POTASSIUM 3.3 mmol/L (3.5-5.1); SODIUM 140 mmol/L (136-145)
[2019-01-06] VITALS (25 sets, daily range): BP systolic 104–177; BP diastolic 45–113
[2019-01-06] MEDS: HYDROMORPHONE 2MG/ML 2 MG/ML ML IV PRN ×7 (01:23→21:24)
[2019-01-06] MEDS: MEROPENEM 500MG/ NS 50ML 50 ML IV SCH ×4 (02:38→20:08)
[2019-01-06] MEDS: SODIUM CHLORIDE 0.9% 1000ML 1,000 ML IV SCH ×6 (02:44→22:01)
[2019-01-06 02:58] LABS: ANION GAP 14.2 mmol/L (8-16); BLOOD UREA NITROGEN 13 mg/dL (7-26); BUN/CREATININE RATIO 10 (6-25); CALCIUM 9.4 mg/dL (8.4-10.2); CARBON DIOXIDE 25 mmol/L (22-29); CHLORIDE 107 mmol/L (98-107); CREATININE, SERUM 1.24 mg/dL (0.72-1.25); EST GLOMERULAR FILTRATION RATE > 60 ML/MIN (60-); GLUCOSE 99 mg/dL (74-118); POTASSIUM 3.2 mmol/L (3.5-5.1); SODIUM 143 mmol/L (136-145)
[2019-01-06] MEDS: DEXTROSE 5%/0.45% SOD CHL 1,000 ML IV SCH ×6 (03:24→22:02)
[2019-01-06 05:57] LABS: BASOPHILS % 0.3 % (0.0-1.0); EOSINOPHILS % 1.1 % (0.0-6.0); HEMATOCRIT 40.2 % (38.2-49.6); HEMOGLOBIN 13.5 g/dL (14.0-18.0); LYMPHOCYTES % 27.2 % (18.0-39.1); MEAN CORPUSCULAR HEMOGLOBIN 30.5 pg (28-32); MEAN CORPUSCULAR HGB CONC 33.6 g/dL (31-35); MEAN CORPUSCULAR VOLUME 90.7 fL (81-99); MONOCYTES # (AUTO) 0.2 (0.2-0.8); NEUTROPHILS # (AUTO) 2.3 (2.1-6.9); NEUTROPHILS % 65.1 % (38.7-80.0); PLATELET COUNT 76 x10e3/uL (140-360); RED BLOOD COUNT 4.43 x10e6/uL (4.3-5.7); RED CELL DISTRIBUTION WIDTH 13.7 % (11.7-14.4)
[2019-01-06 06:13] LABS: INR 1.13
[2019-01-06 06:14] LABS: PARTIAL THROMBOPLASTIN TIME 34.6 seconds (23.8-35.5)
[2019-01-06 06:38] LABS: ALANINE AMINOTRANSFERASE 7 IU/L (0-55); ALBUMIN 2.7 g/dL (3.5-5.0); ALKALINE PHOSPHATASE 50 IU/L (40-150); ANION GAP 12.4 mmol/L (8-16); BILIRUBIN,DIRECT 0.1 mg/dL (0.0-0.5); BLOOD UREA NITROGEN 12 mg/dL (7-26); BUN/CREATININE RATIO 10 (6-25); CALCIUM 9.3 mg/dL (8.4-10.2); CARBON DIOXIDE 28 mmol/L (22-29); CHLORIDE 106 mmol/L (98-107); CHOL/HDL RATIO 17.8 (3.9-4.7); CHOLESTEROL 338 MD/DL (0-199); CREATININE, SERUM 1.18 mg/dL (0.72-1.25); EST GLOMERULAR FILTRATION RATE > 60 ML/MIN (60-); GLUCOSE 91 mg/dL (74-118); HDL CHOLESTEROL 19 MG/DL (40-60); LIPASE 35 U/L (8-78); MAGNESIUM 1.9 MG/DL (1.3-2.1); POTASSIUM 3.4 mmol/L (3.5-5.1); SODIUM 143 mmol/L (136-145); TRIGLYCERIDES 941 MG/DL (0-149)
[2019-01-06] MEDS: ENOXAPARIN SOD INJ 40 MG/0.4 ML SYR SC SCH (09:06)
[2019-01-06] MEDS: POTASSIUM CHLORIDE 20MEQ/100ML 200 ML IV PRN (09:59)
[2019-01-06 10:28] LABS: ANION GAP 13.4 mmol/L (8-16); BLOOD UREA NITROGEN 11 mg/dL (7-26); BUN/CREATININE RATIO 11 (6-25); CARBON DIOXIDE 26 mmol/L (22-29); CHLORIDE 107 mmol/L (98-107); CREATININE, SERUM 0.99 mg/dL (0.72-1.25); EST GLOMERULAR FILTRATION RATE > 60 ML/MIN (60-); GLUCOSE 111 mg/dL (74-118); POTASSIUM 3.4 mmol/L (3.5-5.1); SODIUM 143 mmol/L (136-145)
--- NOTE | 2019-01-06 12:31 | NUR ---
Nutrition Screen Note RD Recommendation for Physician: 1.Once medically appropriate, advance diet as tolerated to ADA low-fat diet Plan of Care: RD following, monitoring for tolerance and adequacy Nutrition reason for involvement: Diagnosis-pancreatitis Primary Diagnose(s):Abdominal pain, obesity and pancreatitis PMH: HTN, DM2, CHF, CKD, Obesity, lymphoma and hypothyroidism Ht: 77in Wt: 366 lbs BMI: 43.39kg/m2 IBW: 208lb +/- 10% RD Assessment: (01/06) Chart reviewed. Labs and meds reviewed. 48 y/o M, who was admitted for acute pancreatitis. Last admission for pancreatitis was on 12/09. Currently NPO, day 2. Visited pt in the room, at bedside. No acute GI complaints. TG now at 941. Pt has received prior diet education for pancreatitis. Pt reports trying to follow a low-carbohydrate and low-fat diet at home prior to current hospitalization. Reports improved glycemic control, all nutrition related questions were answered. Per pts , pt lost ~ 40 lbs x 1 month, attributed weight loss to TF during previous admission. PTC showed pt was previously on a nasojejunal feeding tube with poor tolerance. Will continue to follow and monitor as needed for additional intervention and diet advancement. Current Diet: NPO Malnutrition Evaluation (01/06) The patient does not meet criteria for a specified degree of malnutrition at this time. Will re-evaluate at follow-up as appropriate. Diet Education Needs Assessment: Diet education indicated, pt stated prior education, reinforced low-fat, low-carbohydrate diet and plate method. Nutrition Care Level: MODERATE Signed: Evelyn Li, MS, RDN, LD
[2019-01-06] MEDS: PANTOPRAZOLE 40 MG 10ML VIAL IV SCH (17:47)
[2019-01-06] MEDS: INSULIN REGULAR, HUMAN 3ML VL 100 UNIT in SODIUM CHLORIDE 0.9% 99 ML IV SCH ×2 (22:03)
[2019-01-07] VITALS (23 sets, daily range): BP systolic 125–156; BP diastolic 78–103
[2019-01-07] MEDS: HYDROMORPHONE 2MG/ML 2 MG/ML ML IV PRN ×7 (00:36→23:15)
[2019-01-07] MEDS: MEROPENEM 500MG/ NS 50ML 50 ML IV SCH ×4 (01:39→20:34)
[2019-01-07] MEDS: SODIUM CHLORIDE 0.9% 1000ML 1,000 ML IV SCH ×5 (01:40→19:00)
[2019-01-07] MEDS: DEXTROSE 5%/0.45% SOD CHL 1,000 ML IV SCH ×2 (02:38→05:10)
[2019-01-07 05:51] LABS: BASOPHILS % 0.7 % (0.0-1.0); EOSINOPHILS # (AUTO) 0.1 (0.0-0.4); EOSINOPHILS % 3.4 % (0.0-6.0); HEMATOCRIT 40.6 % (38.2-49.6); HEMOGLOBIN 13.7 g/dL (14.0-18.0); MEAN CORPUSCULAR HEMOGLOBIN 30.6 pg (28-32); MEAN CORPUSCULAR HGB CONC 33.7 g/dL (31-35); MEAN CORPUSCULAR VOLUME 90.8 fL (81-99); MONOCYTES # (AUTO) 0.2 (0.2-0.8); MONOCYTES % 6.1 % (4.4-11.3); NEUTROPHILS # (AUTO) 1.6 (2.1-6.9); NEUTROPHILS % 54.5 % (38.7-80.0); PLATELET COUNT 74 x10e3/uL (140-360); RED BLOOD COUNT 4.47 x10e6/uL (4.3-5.7); RED CELL DISTRIBUTION WIDTH 13.6 % (11.7-14.4)
[2019-01-07 06:21] LABS: ANION GAP 12.8 mmol/L (8-16); BLOOD UREA NITROGEN 5 mg/dL (7-26); BUN/CREATININE RATIO 6 (6-25); CALCIUM 8.9 mg/dL (8.4-10.2); CARBON DIOXIDE 27 mmol/L (22-29); CHLORIDE 104 mmol/L (98-107); EST GLOMERULAR FILTRATION RATE > 60 ML/MIN (60-); GLUCOSE 107 mg/dL (74-118); MAGNESIUM 1.7 MG/DL (1.3-2.1); SODIUM 141 mmol/L (136-145)
[2019-01-07] MEDS: INSULIN REGULAR, HUMAN 3ML VL 100 UNIT in SODIUM CHLORIDE 0.9% 99 ML IV SCH ×2 (06:23)
[2019-01-07 06:26] LABS: POTASSIUM 2.8 mmol/L (3.5-5.1)
[2019-01-07] MEDS ORDERED: POTASSIUM CHLORIDE 20MEQ/100ML 200 ML ONE (06:33)
[2019-01-07 06:36] LABS: CHOL/HDL RATIO 18.5 (3.9-4.7); CHOLESTEROL 352 MD/DL (0-199); HDL CHOLESTEROL 19 MG/DL (40-60); TRIGLYCERIDES 627 MG/DL (0-149)
[2019-01-07] MEDS: POTASSIUM CHLORIDE 20MEQ/100ML 200 ML IV PRN (06:41)
[2019-01-07] MEDS: ENOXAPARIN SOD INJ 40 MG/0.4 ML SYR SC SCH (09:00)
--- NOTE | 2019-01-07 14:10 | NUR ---
Visit made by the Spiritual Care Department Pastoral Visitor, Denilson Baca. PV provided pastoral presence, hospitality, and supportive listening. Pastoral Visitor informed pt/family of the scope of [employer] and availability. KADEEM POWELL Territory Supervisor Spiritual Care Department O: [phone] Pager: [phone] ([phone] number calling from)
[2019-01-07] MEDS: DEXTROSE 10% 1,000 ML IV SCH ×2 (16:41→21:30)
[2019-01-07] MEDS: PANTOPRAZOLE 40 MG 10ML VIAL IV SCH (16:45)
[2019-01-07] MEDS: HYDRALAZINE HCL 20 MG/ML VIAL IV PRN (20:53)
[2019-01-08] VITALS (24 sets, daily range): BP systolic 127–166; BP diastolic 77–117
[2019-01-08] MEDS: MEROPENEM 500MG/ NS 50ML 50 ML IV SCH ×4 (02:04→20:44)
[2019-01-08] MEDS: INSULIN REGULAR, HUMAN 3ML VL 100 UNIT in SODIUM CHLORIDE 0.9% 99 ML IV SCH ×2 (02:56)
[2019-01-08] MEDS: DEXTROSE 10% 1,000 ML IV SCH ×3 (04:23→23:39)
[2019-01-08] MEDS: HYDROMORPHONE 2MG/ML 2 MG/ML ML IV PRN ×5 (04:23→20:44)
[2019-01-08] MEDS: ONDANSETRON HCL INJ 2MG/ML 2ML 2 MG/ML VIAL IV PRN ×2 (08:32→16:21)
[2019-01-08] MEDS: ENOXAPARIN SOD INJ 40 MG/0.4 ML SYR SC SCH (10:28)
[2019-01-08] MEDS: SODIUM CHLORIDE 0.9% 1000ML 1,000 ML IV SCH ×4 (10:44→19:54)
[2019-01-08 11:09] LABS: ANION GAP 13.9 mmol/L (8-16); BLOOD UREA NITROGEN < 5 mg/dL (7-26); CALCIUM 9.5 mg/dL (8.4-10.2); CARBON DIOXIDE 25 mmol/L (22-29); CHLORIDE 103 mmol/L (98-107); EST GLOMERULAR FILTRATION RATE > 60 ML/MIN (60-); GLUCOSE 90 mg/dL (74-118); SODIUM 139 mmol/L (136-145)
[2019-01-08 11:23] LABS: BUN/CREATININE RATIO 6 (6-25)
[2019-01-08 11:24] LABS: POTASSIUM 2.9 mmol/L (3.5-5.1)
--- NOTE | 2019-01-08 12:20 | NUR ---
Per Dr Umair Montero, patient to transfer to [facility] via [facility] certified transport on insulin gtt. road supervisor of engines made aware.
[2019-01-08] MEDS ORDERED: POTASSIUM CHLORIDE 20MEQ/100ML 300 ML IV ONE (12:30)
[2019-01-08] MEDS ORDERED: INSULIN REGULAR, HUMAN 3ML VL 100 UNIT in SODIUM CHLORIDE 0.9% 99 ML IV SCH ×2 (15:15)
--- NOTE | 2019-01-08 15:24 | Consultation ---
DATE OF CONSULTATION: 01/08/2019 Pulmonary Critical Care Consultation HISTORY OF PRESENT ILLNESS: Mr. Sandoval is a 48-year-old male with multiple medical problems including recurrent pancreatitis. Apparently, this is his 2nd episode here. He presented on or about night or Tuesday morning with increasing mid epigastric right upper quadrant abdominal pain, nausea, vomiting, and inability to tolerate oral intake. He was evaluated with CT, labs, etc. CT showed possible necrotizing pancreatitis with free air. He also has significant hypertriglyceridemia with initial triglyceride level of 2166. He still has pain of 7-8/10. It was originally 1010 when he presented. PAST MEDICAL HISTORY: Diabetes, hypertension, hypertriglyceridemia, "CHF," BK for which he uses BiPAP, and alcohol use or abuse. PAST SURGICAL HISTORY: Noncontributory. SOCIAL HISTORY: He used to drink, has not drunk recently. FAMILY HISTORY: Noncontributory. ALLERGIES: BACTRIM, HYDROCODONE, AND NSAIDS. MEDICATIONS: Current medications reviewed and include an insulin drip and meropenem. PHYSICAL EXAMINATION: VITAL SIGNS: He is afebrile for the last 24 hours, heart rate is in the 70s, oxygen saturation is 98% on 2 L. Respiratory rate is 16. Blood pressure 150/91. LABORATORY DATA: Labs have been revived. Current triglycerides 627. They are decreased. Creatinine is 0.8. CT of the abdomen and pelvis showed peripancreatic stranding with trace area about the neck of the pancreas. Ultrasound showed hepatomegaly and hepatic steatosis without stones. ASSESSMENT: 1. Acute severe pancreatitis, possible necrotizing. 2. Hypertriglyceridemia, severe. 3. Diabetes mellitus. 4. Obstructive sleep apnea. 5. Thrombocytopenia. 6. Hypertension. 7. Morbid obesity. 8. Alcohol use history. RECOMMENDATIONS AND PLAN: Continue IV fluids and insulin drip. Continue antibiotics. Apparently, he is in need of nasojejunal tube which were not able to do at this facility and they are looking a transfer to high level of care. Also, we will put him on BiPAP for his sleep apnea. We will see how he does with the nasal tube, it may become an issue. MD LUIS A Price/MODL /[id number]
--- NOTE | 2019-01-08 16:57 | NUR ---
Nutrition Intervention Note RD Recommendation for Physician: -TPN rec's: 2280 ml/day at 95 ml/hr. Dextrose 30% 500 ml/L (342 gm dextrose/day and GIR of 2.9), AA10% 500 ml/L (114 gm/day), no lipids, NaCl 30 mEq/L, KCl 45 mEq/L, KPhos 12 mmol/L, Ca Gluconate 5 mEq/L, Mg Sulfate 10 mEq/L, MVI, trace, thiamine. To provide 1619 kcal/day. -Recommend significantly decreasing rate of D10 with initiation of TPN or discontinuing. Additional fluids per MD. -Check BMP with Mg and Phos daily, check LFTs weekly. -Continue to monitor and replace lytes outside of TPN as needed. -BG and insulin management per MD. Plan of Care: RD following, monitoring for tolerance and adequacy. TPN rec's. Nutrition reason for involvement: MD Consult- TPN rec's Primary Diagnose(s):Abdominal pain, obesity and pancreatitis PMH: HTN, DM2, CHF, CKD, Obesity, lymphoma and hypothyroidism RD Assessment: 01/08: Pt seen today per TPN consult, spoke with RN- MD would like to start TPN 2/2 pancreatitis- possibly necrotizing per CT results. Pt to have PICC line placed today, TPN to start tomorrow- consult received after CAPS cut off time to compound TPN order for this evening. Pt reports continued abdominal pain, no questions from pt or at time of visit. Noted TG continues to trend down. Lytes replaced today. Pt currently on IVF of D10 at 125 ml/hr, providing 300 gm dextrose/day. Recommend maintaining current dextrose infusion with initiation of TPN to maintain BG stability with insulin drip and better meet total needs. TPN rec's discussed with RN on unit, order sheet placed in chart for MD to review. (01/06) Chart reviewed. Labs and meds reviewed. 48 y/o M, who was admitted for acute pancreatitis. Last admission for pancreatitis was on 12/09. Currently NPO, day 2. Visited pt in the room, at bedside. No acute GI complaints. TG now at 941. Pt has received prior diet education for pancreatitis. Pt reports trying to follow a low-carbohydrate and low-fat diet at home prior to current hospitalization. Reports improved glycemic control, all nutrition related questions were answered. Per pts , pt lost ~ 40 lbs x 1 month, attributed weight loss to TF during previous admission. PTC showed pt was previously on a nasojejunal feeding tube with poor tolerance. Will continue to follow and monitor as needed for additional intervention and diet advancement. IVF: D10 at 125 ml/hr (300 gm dextrose per day) Insulin drip at 10 units/hr GI: No BM recorded, + abdominal pain Skin: intact Labs: 01/08: Na 139, K 2.9, Cl 103, CO2 25, BUN <5, Cr 0.8, Gluc 90, POC Gluc 90-94, Mg 1.6, no Phos, TG 627 01/05: TG 2166 Meds: abx, dilaudid, KCl IVPB (40 mEq), Mg Sulfate IVPB (1 gm) Ht: 77in Wt: 366 lbs BMI: 43.39kg/m2 IBW: 208lb +/- 10% Malnutrition Evaluation (01/06) The patient does not meet criteria for a specified degree of malnutrition at this time. Will re-evaluate at follow-up as appropriate. Nutrition Prescription (Diet Order): NPO Estimated Nutritional Needs: 9771-9993 calories/day (20-25 kcal/kg IBW) 142-189 g protein/day (1.5-2 g pro/kg IBW) Diet Adequacy: Meeting fluid needs, Not meeting calorie needs, Not meeting protein needs Diet Education Needs Assessment: 01/06: Diet education indicated, pt stated prior education, reinforced low-fat, low-carbohydrate diet and plate method. Nutrition Care Level: High- New TPN Nutrition Diagnosis: Inadequate energy and protein intake related to pancreatitis as evidenced by pt remains NPO day 2 and requiring TPN. Goal: Patient will meet 75-100% of estimated needs by follow up Progress: N/A Interventions: Composition, Rate, Route, IVF, Prescription medications, Survival information, Recommended Modifications, Collaboration with other providers Monitoring/Evaluation: Total energy intake, Total protein intake, Formula/Solution, IVF, Prescription medication Signed: Rosa Young RD, LD, [facility]
--- NOTE | 2019-01-08 17:33 | Diagnostic Imaging Report ---
EXAMINATION: CHEST XRAY LINE PLACEMENT INDICATION: Abdominal pain. Obesity. Line placement COMPARISON: 02/11/2018 FINDINGS: TUBES and LINES: Left peripherally inserted central venous catheter with distal tip over the right atrial/superior vena cava junction. LUNGS: Lungs are well inflated. Lungs are clear. There is no evidence of pneumonia or pulmonary edema. PLEURA: No pleural effusion or pneumothorax. HEART AND MEDIASTINUM: The cardiomediastinal silhouette is unremarkable. BONES AND SOFT TISSUES: No acute osseous lesion. Soft tissues are unremarkable. UPPER ABDOMEN: No free air under the diaphragm. IMPRESSION: Left peripherally inserted central venous catheter with distal tip over the right atrial/superior vena cava junction. Signed by: Dr. Alfredo Charlton M.D. on 01/08/2019 5:29 PM
[2019-01-08] MEDS: PANTOPRAZOLE 40 MG 10ML VIAL IV SCH (17:39)
--- NOTE | 2019-01-08 17:41 | NUR ---
Picc tip is at the cavoatrial junction per radiology report by Dr Charlton. Picc OK to use
[2019-01-08] MEDS: BETAMETHASONE/CLOTRIMAZOLE CR 15 GM TUBE TOP SCH (18:34)
[2019-01-09] VITALS (17 sets, daily range): BP systolic 118–174; BP diastolic 62–109
[2019-01-09] MEDS: HYDROMORPHONE 2MG/ML 2 MG/ML ML IV PRN ×7 (00:35→22:23)
[2019-01-09] MEDS: MEROPENEM 500MG/ NS 50ML 50 ML IV SCH ×4 (02:04→20:00)
[2019-01-09] MEDS: DEXTROSE 10% 1,000 ML IV SCH (04:15)
[2019-01-09 04:59] LABS: BASOPHILS % 0.3 % (0.0-1.0); EOSINOPHILS # (AUTO) 0.1 (0.0-0.4); EOSINOPHILS % 4.2 % (0.0-6.0); HEMATOCRIT 44.7 % (38.2-49.6); HEMOGLOBIN 14.9 g/dL (14.0-18.0); LYMPHOCYTES # (AUTO) 1.2 (1.0-3.2); LYMPHOCYTES % 38.1 % (18.0-39.1); MEAN CORPUSCULAR HEMOGLOBIN 30.4 pg (28-32); MEAN CORPUSCULAR HGB CONC 33.3 g/dL (31-35); MEAN CORPUSCULAR VOLUME 91.2 fL (81-99); MONOCYTES # (AUTO) 0.3 (0.2-0.8); MONOCYTES % 9.4 % (4.4-11.3); NEUTROPHILS # (AUTO) 1.5 (2.1-6.9); NEUTROPHILS % 47.7 % (38.7-80.0); PLATELET COUNT 80 x10e3/uL (140-360); RED CELL DISTRIBUTION WIDTH 13.3 % (11.7-14.4)
[2019-01-09 05:22] LABS: ALANINE AMINOTRANSFERASE 26 IU/L (0-55); ALBUMIN 2.8 g/dL (3.5-5.0); ALBUMIN/GLOBULIN RATIO 0.9 (0.8-2.0); ALKALINE PHOSPHATASE 51 IU/L (40-150); ANION GAP 13.9 mmol/L (8-16); BLOOD UREA NITROGEN < 5 mg/dL (7-26); CALCIUM 9.4 mg/dL (8.4-10.2); CARBON DIOXIDE 26 mmol/L (22-29); CHLORIDE 104 mmol/L (98-107); CREATININE, SERUM 0.78 mg/dL (0.72-1.25); EST GLOMERULAR FILTRATION RATE > 60 ML/MIN (60-); GLUCOSE 94 mg/dL (74-118); MAGNESIUM 1.5 MG/DL (1.3-2.1); PHOSPHORUS 3.2 MG/DL (2.3-4.7); SODIUM 141 mmol/L (136-145)
[2019-01-09 05:23] LABS: BUN/CREATININE RATIO 6 (6-25)
[2019-01-09 05:25] LABS: POTASSIUM 2.9 mmol/L (3.5-5.1)
[2019-01-09] MEDS: POTASSIUM CHLORIDE 20MEQ/100ML 200 ML IV PRN (05:30)
[2019-01-09] MEDS ORDERED: POTASSIUM CHLORIDE 20MEQ/100ML 200 ML ONE (05:34)
[2019-01-09 05:44] LABS: CHOL/HDL RATIO 24.9 (3.9-4.7); CHOLESTEROL 423 MD/DL (0-199); HDL CHOLESTEROL 17 MG/DL (40-60); LIPASE 6 U/L (8-78); TRIGLYCERIDES 603 MG/DL (0-149)
[2019-01-09] MEDS: BETAMETHASONE/CLOTRIMAZOLE CR 15 GM TUBE TOP SCH ×2 (08:48→16:15)
[2019-01-09] MEDS: ENOXAPARIN SOD INJ 40 MG/0.4 ML SYR SC SCH (08:48)
[2019-01-09 09:56] LABS: PLATELET ESTIMATE MARKEDLY DECREASED
[2019-01-09 09:57] LABS: RBC MORPHOLOGY COMMENT NORMAL
[2019-01-09] MEDS ORDERED: FLUCONAZOLE 400MG/200ML BAG 200 ML IV ONE (11:45)
[2019-01-09] MEDS: ONDANSETRON HCL INJ 2MG/ML 2ML 2 MG/ML VIAL IV PRN (13:49)
[2019-01-09] MEDS: LACTATED RINGER'S 1,000 ML IV SCH ×2 (13:55→20:45)
[2019-01-09] MEDS ORDERED: POTASSIUM CHLORIDE 20MEQ/100ML 100 ML IV ONE (14:15)
--- NOTE | 2019-01-09 15:30 | Progress Note ---
DATE: 01/09/2019 CONSULTING PHYSICIANS: 1. Dr. Solomon Ramirez with capacity planning manager. 2. Dr. Hameed with GI. 3. Dr. Arauz with Surgical. CHIEF COMPLAINT: Abdominal pain due to acute pancreatitis. SUBJECTIVE: Seen in the ICU with complaints of right upper quadrant pain. Rates pain 7/10. He denies any nausea, vomiting, diarrhea, or chest pain. He uses CPAP at night. MEDICATIONS: See med MAR. OBJECTIVE: VITAL SIGNS: Temperature 98.0, pulse is 62, respirations 11, blood pressure 137/80, pulse ox is 99% on 2 L of nasal cannula. GENERAL: No acute distress. NECK: Supple. LUNGS: Clear to auscultation. CARDIOVASCULAR: Regular rate and rhythm. HEENT: Normocephalic, atraumatic. ABDOMEN: Soft with right upper quadrant pain. EXTREMITIES: Moves all extremities. No edema noted. NEUROLOGIC: Alert, awake, oriented x3. SKIN: Dry and intact. LABORATORY DATA: WBC 3.10, hemoglobin is 14.9, hematocrit is 44.7, and platelet is 80. Sodium is 141, potassium is 2.9, BUN is 0.78. Estimated GFR is greater than 50. Triglycerides are 603. Cholesterol 423, HDL is 17, lipase is 6. IMPRESSION AND PLAN: 1. Acute pancreatitis per imaging. Continue to keep n.p.o. with TPN for nutrition. Pain management as needed. Was on insulin drip for elevated triglycerides. 2. Hypokalemia. Potassium is 2.9 today, replace. 3. Hypertriglyceridemia, was on insulin drip. Triglycerides are improving. 4. Diabetes mellitus type 2. Continue insulin coverage as needed. 5. Obstructive sleep apnea. CPAP at night. 6. Morbid obesity. Lifestyle modifications. Plan is we will discontinue insulin drip and transfer out of the ICU. Continue meropenem for possible necrotizing pancreatitis. Dictated by CHANEL Strickland Rose Montero MD MY/MODL /[id number] Seen and examined on 01/09/2019. Agree with the findings and plan as documented by CHANEL Mccartney. [facility]
[2019-01-09] MEDS: PANTOPRAZOLE 40 MG 10ML VIAL IV SCH (16:16)
[2019-01-09] MEDS: INSULIN LISPRO 100 UNIT/1 ML 3ML VIAL SQ SCH (18:00)
[2019-01-09] MEDS ORDERED: CENTRAL TPN FORMULA 1 BAG IV SCH (20:00)
--- NOTE | 2019-01-09 21:45 | NUR ---
pt received from icu via wheelchair. no ss of distress noted. pt co pain to right upper abd. discussed pain mngt poc. will medicate per orders. right ac 18g infiltrated. iv dc'd catheter tip intact. drsg applied to site. left picc line cdi. reinforced npo status. pt verbalized understanding. will cont to follow poc. call amaya within reach.
[2019-01-10] VITALS (9 sets, daily range): BP systolic 128–178; BP diastolic 70–109
--- NOTE | 2019-01-10 | NUR ---
bp rechecked at time 139/96. no distress noted. pt resting at time. call amaya within reach.
[2019-01-10] MEDS: MEROPENEM 500MG/ NS 50ML 50 ML IV SCH ×5 (02:19→22:47)
[2019-01-10] MEDS: LACTATED RINGER'S 1,000 ML IV SCH ×3 (02:19→21:16)
[2019-01-10] MEDS: HYDROMORPHONE 2MG/ML 2 MG/ML ML IV PRN ×5 (03:00→23:35)
--- NOTE | 2019-01-10 05:01 | NUR ---
pt resting. no ss of distress noted. call amaya within reach.
[2019-01-10] MEDS: INSULIN LISPRO 100 UNIT/1 ML 3ML VIAL SQ SCH ×4 (06:14→19:30)
[2019-01-10 06:37] LABS: ANION GAP 14.1 mmol/L (8-16); BLOOD UREA NITROGEN 8 mg/dL (7-26); BUN/CREATININE RATIO 9 (6-25); CALCIUM 9.6 mg/dL (8.4-10.2); CARBON DIOXIDE 24 mmol/L (22-29); CHLORIDE 103 mmol/L (98-107); CREATININE, SERUM 0.86 mg/dL (0.72-1.25); EST GLOMERULAR FILTRATION RATE > 60 ML/MIN (60-); GLUCOSE 175 mg/dL (74-118); POTASSIUM 4.1 mmol/L (3.5-5.1); SODIUM 137 mmol/L (136-145)
[2019-01-10] MEDS: BETAMETHASONE/CLOTRIMAZOLE CR 15 GM TUBE TOP SCH ×2 (09:00→17:39)
[2019-01-10] MEDS: ENOXAPARIN SOD INJ 40 MG/0.4 ML SYR SC SCH (09:28)
[2019-01-10] MEDS: HYDRALAZINE HCL 20 MG/ML VIAL IV PRN (09:31)
[2019-01-10] MEDS: PANTOPRAZOLE 40 MG 10ML VIAL IV SCH (17:39)
--- NOTE | 2019-01-10 18:47 | Progress Note ---
DATE: 01/10/2019 CONSULTING PHYSICIANS: 1. Dr. Solomon Ramirez with water plant pump operator. 2. Dr. Hameed with GI. 3. Dr. Arauz with surgical. CHIEF COMPLAINT: Abdominal pain, right upper quadrant. SUBJECTIVE: He reports abdominal pain is improving some. Rates the pain 08/28. He remains n.p.o. with TPN for nutrition. He denies any nausea, vomiting, fever, chills, or bowel change. OBJECTIVE: VITAL SIGNS: Temperature is 97.7, pulse is 68, respirations 20, blood pressure is 143/74, and pulse ox is 95% on 2 L of O2. GENERAL: No acute distress. NECK: Supple and midline. LUNGS: Clear to auscultation. CARDIOVASCULAR: Regular rate and rhythm. HEENT: Normocephalic, atraumatic. ABDOMEN: Soft, obese, right upper quadrant pain. EXTREMITIES: Moves all extremities. No edema noted. NEUROLOGIC: Alert, awake, and oriented x3. SKIN: Dry and intact. LABORATORY DATA: Sodium is 137, potassium is 4.1, BUN 8, creatinine is 0.86, and glucose is 175. IMPRESSION: 1. Acute pancreatitis per imaging with increased triglycerides. He remains n.p.o. with TPN for nutrition via PICC line. Pain management as needed and insulin drip discontinued. 2. Hypertriglyceridemia. Now improving. Insulin drip has been discontinued. 3. Diabetes type 2. Continue insulin coverage as needed. 4. Obstructive sleep apnea, CPAP at night. 5. Gastroesophageal reflux disease. Continue on Protonix. 6. Morbid obesity. Needs lifestyle modifications. 7. Deep venous thrombosis prophylaxis, on Lovenox. PLAN: Continue with n.p.o. status with TPN for nutrition and pain management as needed. Continue meropenem for possible necrosis. Dictated by CHANEL Strickland Rose Montero MD MY/MODL /[id number] Seen and examined on 01/10/19. Agree with the findings and plan as documented by CHANEL Mccartney. [facility]
[2019-01-10] MEDS: CENTRAL TPN FORMULA 1 BAG IV SCH (20:00)
[2019-01-11] VITALS (8 sets, daily range): BP systolic 133–168; BP diastolic 73–99
[2019-01-11] MEDS: MEROPENEM 500MG/ NS 50ML 50 ML IV SCH ×4 (02:00→20:48)
[2019-01-11] MEDS: HYDROMORPHONE 2MG/ML 2 MG/ML ML IV PRN ×3 (03:41→23:58)
--- NOTE | 2019-01-11 07:10 | NUR ---
REPORT GIVEN TO ONCOMING NURSE,WALKING ROUNDS MADE.PT RESTING IN BED WITH NO S/S OF DISTRESS.
[2019-01-11] MEDS: INSULIN LISPRO 100 UNIT/1 ML 3ML VIAL SQ SCH ×4 (07:22→18:18)
[2019-01-11] MEDS: BETAMETHASONE/CLOTRIMAZOLE CR 15 GM TUBE TOP SCH ×2 (08:07→17:27)
[2019-01-11] MEDS: ENOXAPARIN SOD INJ 40 MG/0.4 ML SYR SC SCH (08:07)
--- NOTE | 2019-01-11 11:31 | NUR ---
Pt asleep in bed at this time. Respirations even and regular. Pt appears in no apparent distress. Will continue to monitor.
--- NOTE | 2019-01-11 13:49 | NUR ---
Nutrition Intervention Note RD Recommendation for Physician: -ADAT to goal of Low fat, GI Soft. -Recommend Ensure Clear TID for adequacy. -Continue to monitor and replace lytes as needed. -BG and insulin management per MD. Plan of Care: RD following, monitoring for tolerance and adequacy. Diet and ONS rec's. Nutrition reason for involvement: follow up Primary Diagnose(s):Abdominal pain, obesity and pancreatitis PMH: HTN, DM2, CHF, CKD, Obesity, lymphoma and hypothyroidism RD Assessment: 01/11: Follow up. TPN at 42 ml/hr stopped today with plan to advance to CL diet per discussion with MD during am rounds. TPN order changed to starter TPN on 01/08 as MD D/C'd insulin drip and Dextrose infusion. TG continues to trend down and lipase low currently. Pt reports being hungry and abdominal pain improving. Will monitor and continue to follow. 01/08: Pt seen today per TPN consult, spoke with RN- MD would like to start TPN 2/2 pancreatitis- possibly necrotizing per CT results. Pt to have PICC line placed today, TPN to start tomorrow- consult received after CAPS cut off time to compound TPN order for this evening. Pt reports continued abdominal pain, no questions from pt or at time of visit. Noted TG continues to trend down. Lytes replaced today. Pt currently on IVF of D10 at 125 ml/hr, providing 300 gm dextrose/day. Recommend maintaining current dextrose infusion with initiation of TPN to maintain BG stability with insulin drip and better meet total needs. TPN rec's discussed with RN on unit, order sheet placed in chart for MD to review. (01/06) Chart reviewed. Labs and meds reviewed. 48 y/o M, who was admitted for acute pancreatitis. Last admission for pancreatitis was on 12/09. Currently NPO, day 2. Visited pt in the room, at bedside. No acute GI complaints. TG now at 941. Pt has received prior diet education for pancreatitis. Pt reports trying to follow a low-carbohydrate and low-fat diet at home prior to current hospitalization. Reports improved glycemic control, all nutrition related questions were answered. Per pts , pt lost ~ 40 lbs x 1 month, attributed weight loss to TF during previous admission. PTC showed pt was previously on a nasojejunal feeding tube with poor tolerance. Will continue to follow and monitor as needed for additional intervention and diet advancement. IVF: TPN at 42 ml/hr- stopped GI: No BM yet Skin: intact Labs: 01/10: Na 137, K 4.1, BUN 8, Cr 0.86, Gluc 175, Ca 9.6, POC Gluc 3.2, Mg 1.5, TG 603, Lipase 6 01/08: Na 139, K 2.9, Cl 103, CO2 25, BUN <5, Cr 0.8, Gluc 90, POC Gluc 90-94, Mg 1.6, no Phos, TG 627 01/05: TG 2166 Meds: abx, dilaudid, KCl IVPB, Mg Sulfate IVPB, protonix Ht: 77in Wt: 366 lbs BMI: 43.39kg/m2 IBW: 208lb +/- 10% Malnutrition Evaluation (01/06) The patient does not meet criteria for a specified degree of malnutrition at this time. Will re-evaluate at follow-up as appropriate. Nutrition Prescription (Diet Order): NPO, plan to advance to CL diet Estimated Nutritional Needs: 8928-4246 calories/day (20-25 kcal/kg IBW) 142-189 g protein/day (1.5-2 g pro/kg IBW) Diet Adequacy: Meeting fluid needs, Not meeting calorie needs, Not meeting protein needs Diet Education Needs Assessment: 01/06: Diet education indicated, pt stated prior education, reinforced low-fat, low-carbohydrate diet and plate method. Nutrition Care Level: High Nutrition Diagnosis: Inadequate energy and protein intake related to pancreatitis as evidenced by pt remains NPO day 2 and requiring TPN. Goal: Patient will meet 75-100% of estimated needs by follow up Progress: Progressing Interventions: Modified diet- fluid, fiber, fat, Prescription medications, Survival information, Recommended Modifications, Collaboration with other providers Monitoring/Evaluation: Total energy intake, Total protein intake, Formula/Solution, IVF, Prescription medication Signed: Rosa Young RD, LD, [facility]
--- NOTE | 2019-01-11 15:42 | Progress Note ---
DATE: 01/11/2019 CHIEF COMPLAINT: Right upper quadrant abdominal pain. SUBJECTIVE: He reports abdominal pain is improving. Wants to try clears. He reports the pain is 3/10 today. He denies any nausea, vomiting, fever, chills, chest pain, or diarrhea. We will start clear liquids to see how he tolerates. OBJECTIVE: VITAL SIGNS: Temperature 97.4, pulse is 60, respirations 20, blood pressure is 133/73, and pulse ox is 100% on 2 L. GENERAL: No acute distress. NECK: Supple and midline. LUNGS: Clear to auscultation. CARDIOVASCULAR: Regular rate and rhythm. HEENT: Normocephalic, atraumatic. ABDOMEN: Soft, obese with slight right upper quadrant pain. EXTREMITIES: Moves all extremities. No edema. NEUROLOGIC: Alert, awake, and oriented x3. SKIN: Dry and intact. PSYCH: Calm. LABORATORY DATA: Reviewed. ASSESSMENT AND PLAN: 1. Abdominal pain due to acute pancreatitis, per imaging. He is improving. Continue TPN and we will start clear liquids as his abdominal pain is improving. 2. Hypertriglyceridemia, now improving, was on insulin drip. 3. Diabetes type 2. Continue insulin coverage as needed. 4. Sleep apnea. CPAP at night. 5. Gastroesophageal reflux disease. Continue Protonix IV. 6. Morbid obesity. Lifestyle modification discussed. 7. Deep vein thrombosis prophylaxis, on Lovenox. PLAN: Plan is to continue TPN, we will start on clear liquids and see how he tolerates. Dictated by Staci Mccartney, CHANEL Rose Montero MD MY/MODL /[id number]
[2019-01-11] MEDS: LACTATED RINGER'S 1,000 ML IV SCH ×2 (17:27→17:34)
[2019-01-11] MEDS: PANTOPRAZOLE 40 MG 10ML VIAL IV SCH (17:27)
[2019-01-11] MEDS: CENTRAL TPN FORMULA 1 BAG IV SCH (20:00)
[2019-01-12 00:13] VITALS: BP 148/75
[2019-01-12] MEDS: MEROPENEM 500MG/ NS 50ML 50 ML IV SCH ×3 (02:15→13:28)
[2019-01-12] MEDS: LACTATED RINGER'S 1,000 ML IV SCH ×2 (03:16→13:35)
[2019-01-12] MEDS: HYDROMORPHONE 2MG/ML 2 MG/ML ML IV PRN ×2 (04:37→08:56)
[2019-01-12 05:22] VITALS: BP 149/73
[2019-01-12] MEDS: INSULIN LISPRO 100 UNIT/1 ML 3ML VIAL SQ SCH ×3 (06:00→13:29)
--- NOTE | 2019-01-12 07:00 | NUR ---
BEDSIDE ROUNDS COMPLETE NO DISTRESS NOTED, UPDATED ON POC VOICED UNDERSTANDING, DENIES PAIN AT THIS TIME, CALL LIGHT IN REACH WILL CONTINUE TO MONITOR
--- NOTE | 2019-01-12 07:15 | NUR ---
REPORT GIVEN TO ONCOMING NURSE,WALKING ROUNDS MADE.PT RESTING IN BED WITH NO S/S OF DISTRESS.
[2019-01-12 08:12] VITALS: BP 134/78
[2019-01-12 08:37] VITALS: BP 134/78
[2019-01-12] MEDS: ENOXAPARIN SOD INJ 40 MG/0.4 ML SYR SC SCH (08:43)
[2019-01-12] MEDS: BETAMETHASONE/CLOTRIMAZOLE CR 15 GM TUBE TOP SCH (08:51)
[2019-01-12 12:31] VITALS: BP 112/60
--- NOTE | 2019-01-12 12:45 | NUR ---
TPN TAPERED PER ORDERED FOR DC, PT TOLERATING ADA DIET WELL, WILL CONTINUE TO MONTIOR
[2019-01-12] MEDS ORDERED: HYDROMORPHONE 1MG/1ML INJ IV PRN (13:45)
--- NOTE | 2019-01-12 14:00 | NUR ---
DOWN TO XRAY TOLERATED WELL Addendum: 01/12/19 at 1515 by Niyah Sotelo RN entered in error
--- NOTE | 2019-01-12 14:24 | NUR ---
BACK TO [facility]ICHOL[facility] IN [place] WILL CONTINUE TO MONITOR Addendum: 01/12/19 at 1515 by Niyah Sotelo RN entered in error
--- NOTE | 2019-01-12 15:05 | NUR ---
informed dr casarez's office patient being discharged today
--- NOTE | 2019-01-12 15:13 | NUR ---
TPN decreased to 10ml/hr will continue to monitor
[2019-01-12] MEDS ORDERED: INSULIN LISPRO 100 UNIT/1 ML 3ML VIAL SQ SCH (16:30)
--- NOTE | 2019-01-12 16:30 | NUR ---
tpn dc'd as per ordered, picc line dc'd pressure to site held x 10mins covered with tegaderm dressing, r wrist 18g dc'd covered with 2x2 and tape, pt tolerated well, dc instructions given voiced understanding, pt getting dressed and instructed to call when ready
[2019-01-12] MEDS ORDERED: SPIRONOLACTONE 25 MG TAB PO SCH (17:00)
--- NOTE | 2019-01-13 05:47 | Discharge Summary ---
PRIMARY CARE PHYSICIAN: Dr. Fili Bentley. FINAL DISCHARGE DIAGNOSES: 1. Acute pancreatitis due to triglyceridemia. 2. Hypertriglyceridemia. 3. Diabetes type 2. 4. Sleep apnea. 5. Gastroesophageal reflux disease. 6. Morbid obesity. 7. Chronic pain. CONSULTANTS: Dr. Hameed with GI, Dr. Ramirez with the ticket taker. PROCEDURES: None. HISTORY: Per HPI. HOSPITAL COURSE: This is a 48-year-old male with past medical history of hypertension, hypothyroidism, diabetes, high cholesterol, pancreatitis, chronic pain, and morbid obesity, presented to the ER with increased abdominal pain. CAT scan showed significant inflammation of the pancreas. He was kept n.p.o. GI was consulted. Triglycerides were very elevated and thus, he was started on insulin drip and transferred to ICU. He was monitored closely in the ICU, triglycerides improved. He was started on TPN for nutrition. Once the abdominal pain improved, he was started on clear liquids, then advanced to ADA diet which he is now tolerating well. He rates pain 3/10 to 5/10 and wants to discharge home. Empirically he received meropenem for possible necrotizing pancreatitis on CT. Complete alcohol cessation was recommended as well. PHYSICAL EXAMINATION: VITAL SIGNS: Temperature is 96.8, pulse is 66, respirations 20, blood pressure 112/60, pulse ox is 97% on room air. GENERAL: No acute distress. LUNGS: Clear to auscultation. CARDIOVASCULAR: Regular rate and rhythm. HEENT: Normocephalic and atraumatic. ABDOMEN: Soft, obese with mild tenderness in the right upper quadrant. EXTREMITIES: Moves all extremities. No edema. NEUROLOGIC: Alert, awake, and oriented x3. SKIN: Dry and intact. CONDITION AT DISCHARGE: Improved and stable. DISCHARGE MEDICATIONS: See medication reconciliation list. FOLLOWUP: With GI in 1 to 2 weeks. Follow up with Dr. Fili Bentley in 1 to 2 weeks. Total time of discharge is 35 minutes. Dictated by CHANEL Strickland Shaniceching Alexandre Montero MD MY/MODL /[id number] cc: MD Sally Doran
[2019-01-13] MEDS ORDERED: LEVOTHYROXINE SODIUM 50 MCG TAB PO SCH (06:00)
[2019-01-13] MEDS ORDERED: SERTRALINE HCL 50 MG TAB PO SCH (09:00)
== END 2019-01-12 16:50 | disposition home or self-care (01) | DRG 439 ==
LOC: ER 18:56 → ERHOLD 22:23 → MED/SURG3 01-05 01:01 → ICU 01-05 12:59 → MED/SURG 01-09 21:45
PROVIDERS: ADMIT Internal Medicine; ATTEND Internal Medicine
PROC: 02HV33Z Insertion of Infusion Device into Superior Vena Cava, Percutaneous Approach (ICD-10-PCS; principal; 2019-01-08)
DX: K85.82 Other acute pancreatitis with infected necrosis (principal); Z68.41 Body mass index [BMI] 40.0-44.9, adult; E87.2 Acidosis; N17.9 Acute kidney failure, unspecified; K21.9 Gastro-esophageal reflux disease without esophagitis; E78.1 Pure hyperglyceridemia; E66.01 Morbid (severe) obesity due to excess calories; R06.89 Other abnormalities of breathing; E11.9 Type 2 diabetes mellitus without complications; D69.6 Thrombocytopenia, unspecified; G89.29 Other chronic pain; K86.0 Alcohol-induced chronic pancreatitis; E87.6 Hypokalemia; G47.33 Obstructive sleep apnea (adult) (pediatric); F10.10 Alcohol abuse, uncomplicated
CPT/HCPCS: 36415; 71045; 74177; 74470; 76700; 80048; 80053; 80061; 80076; 81001; 82150; 82550; 82553; 82948; 83690; 83735; 84100; 84443; 84484; 85025; 85610; 85730; 93005; 94660; 96367; 96376; 99284; J0360; J1170; J1450; J1650; J1817; J2405; J3480; J7030; J7050; J7121; Q9967

== ENCOUNTER 2019-02-18 19:01 | Inpatient (IN) | payer SELFPAY ==
[~2019-02-18] VITALS: Ht 188 cm; Wt 162.4 kg
[~2019-02-18 19:01] MED LIST changes: +HYDROMORPHONE HC2 MG PO; +JARDIANCE25 MG PO; +SPIRONOLACTONE25 MG PO; +VALSARTAN-HCTZ1 EAC3 PO
[2019-02-18] MEDS ORDERED: SODIUM CHLORIDE 0.9% 1000ML 1,000 ML IV STA (19:16)
[2019-02-18] MEDS ORDERED: ONDANSETRON HCL INJ 2MG/ML 2ML 2 MG/ML VIAL IV NR (19:30)
[2019-02-18 19:45] LABS: BASOPHILS % 0.2 % (0.0-1.0); EOSINOPHILS % 0.2 % (0.0-6.0); HEMATOCRIT 47.9 % (38.2-49.6); HEMOGLOBIN 19.3 g/dL (14.0-18.0); LYMPHOCYTES # (AUTO) 1.3 (1.0-3.2); LYMPHOCYTES % 10.5 % (18.0-39.1); MEAN CORPUSCULAR HEMOGLOBIN 35.6 pg (28-32); MEAN CORPUSCULAR HGB CONC 40.3 g/dL (31-35); MEAN CORPUSCULAR VOLUME 88.4 fL (81-99); MONOCYTES # (AUTO) 0.4 (0.2-0.8); MONOCYTES % 3.2 % (4.4-11.3); NEUTROPHILS # (AUTO) 10.5 (2.1-6.9); NEUTROPHILS % 85.3 % (38.7-80.0); PLATELET COUNT 180 x10e3/uL (140-360); RED BLOOD COUNT 5.42 x10e6/uL (4.3-5.7); RED CELL DISTRIBUTION WIDTH 13.5 % (11.7-14.4)
[2019-02-18] MEDS ORDERED: MORPHINE SULFATE INJ 4 MG/ML INJ 1ML IV NR (19:45)
[2019-02-18 20:16] LABS: ALBUMIN 4.6 g/dL (3.5-5.0); ALBUMIN/GLOBULIN RATIO 0.5 (0.8-2.0); AMYLASE 517 U/L (25-125); CHLORIDE 94 mmol/L (98-107); CREATININE, SERUM 1.21 mg/dL (0.72-1.25); EST GLOMERULAR FILTRATION RATE > 60 ML/MIN (60-); LIPASE 501 U/L (8-78); POTASSIUM 3.6 mmol/L (3.5-5.1); SODIUM 136 mmol/L (136-145)
[2019-02-18 20:42] LABS: BILIRUBIN,URINE SMALL (NEGATIVE); CLARITY,URINE CLEAR (CLEAR); COLOR,URINE YELLOW (YELLOW); KETONES,URINE 1+ (NEGATIVE); LEUKOCYTE ESTERASE ,URINE NEGATIVE (NEGATIVE); NITRITE,URINE NEGATIVE (NEGATIVE); PROTEIN,URINE DIPSTICK 2+ (NEGATIVE); URINE UROBILINOGEN 0.2 mg/dL (0.2 - 1)
[2019-02-18 20:46] LABS: BACTERIA,URINE RARE /HPF; EPITHELIAL CELLS,URINE FEW /LPF
[2019-02-18] MEDS ORDERED: IOPAMIDOL 370 MG/ML 200 ML INFUS..BTL INJ ONE (20:56)
[2019-02-18] MEDS ORDERED: SODIUM CHLORIDE 0.9% 50ML 50 ML ONE (20:56)
[2019-02-18 20:58] LABS: ALKALINE PHOSPHATASE 83 IU/L (40-150); BLOOD UREA NITROGEN 22 mg/dL (7-26); BUN/CREATININE RATIO 18 (6-25); CALCIUM 10.9 mg/dL (8.4-10.2); GLUCOSE 195 mg/dL (74-118)
[2019-02-18] MEDS ORDERED: FENTANYL CITRATE/PF 100MCG/2 ML INJ IV ONE (21:00)
--- NOTE | 2019-02-18 22:08 | Diagnostic Imaging Report ---
EXAM: CT Abdomen and Pelvis WITH contrast INDICATION: Upper quadrant pain. COMPARISON: CT abdomen/pelvis 01/04/2019. TECHNIQUE: Abdomen and pelvis were scanned utilizing a multidetector helical scanner from the lung base to the pubic symphysis after administration of IV contrast. Coronal and sagittal reformations were obtained. Routine protocol was performed. Scan was performed when during portal venous phase. IV CONTRAST: 100 cc of Isovue-370. ORAL CONTRAST: None. COMPLICATIONS: None RADIATION DOSE: Total DLP: 1420.2 mGy*cm Estimated effective dose: (DLP x 0.015 x size factor) mSv CTDIvol has been reviewed. It is below the limits set by the Radiation Protocol Committee (RPC). FINDINGS: LINES and TUBES: None. LOWER THORAX: Unremarkable HEPATOBILIARY: Diffuse mild hepatic steatosis. Hepatomegaly. No evidence of focal lesion. No biliary ductal dilation. GALLBLADDER: No radio-opaque stones or sludge. No wall thickening. SPLEEN: No splenomegaly. Unchanged exophytic splenic cyst. PANCREAS: There is increasing. Pancreatic stranding and fullness at the pancreatic head and uncinate process, and decreasing inflammatory changes in the body. No evidence of pancreatic hypoenhancement or peripancreatic collection. Unchanged punctate focus of air in the pancreatic neck on series 2, image 32, which may be within the duct. ADRENALS: No adrenal nodules KIDNEYS/URETERS: Kidneys enhance symmetrically. No evidence of hydronephrosis, solid mass, or stone. GI TRACT: No evidence of wall thickening or distension. Appendix is normal. PELVIC ORGANS/BLADDER: Unremarkable. LYMPH NODES: No lymphadenopathy. 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 Mild atherosclerotic calcifications of the abdominal aorta and branch vessels. PERITONEUM / RETROPERITONEUM: No free air or fluid. BONES AND SOFT TISSUES: Degenerative changes of spine. Unchanged mild anterior wedging of T11 and T12 vertebral bodies. CONCLUSION: Findings of persistent pancreatitis, improved along the pancreatic body, and increased in the pancreatic head and uncinate process. Punctate focus of air within the pancreatic neck is indeterminate, and can be seen in necrotizing pancreatitis or alternatively may be within the pancreatic duct. No evidence of pancreatic hypoenhancement. Diffuse mild hepatic steatosis and hepatomegaly. Signed by: Dr. Iker Pérez MD on 02/18/2019 10:05 PM
[2019-02-18 23:00] LABS: ANION GAP 25.6 mmol/L (8-16); CARBON DIOXIDE < 20 mmol/L (22-29)
[2019-02-18] MEDS ORDERED: MEROPENEM 1GM 100 ML IV SCH (23:00)
[2019-02-18 23:07] LABS: ALANINE AMINOTRANSFERASE 28 IU/L (0-55)
[2019-02-19] VITALS (9 sets, daily range): BP systolic 111–158; BP diastolic 54–93
--- NOTE | 2019-02-19 | NUR ---
patient came from the Emergency Room via wheelchair. Alert and oriented. IV to left AC 20 G patent. Transferred to bed with no problems. Oriented to room. Complained of abdominal pain and nausea. Vital signs within normal limits. PRN medications given.
[2019-02-19] MEDS ORDERED: SODIUM CHLORIDE 0.9% 250ML 250 ML ONE (00:18)
[2019-02-19] MEDS: MORPHINE SULFATE 2 MG/ML SYR 1ML IV PRN ×6 (00:46→20:30)
[2019-02-19] MEDS: ONDANSETRON HCL INJ 2MG/ML 2ML 2 MG/ML VIAL IV PRN ×5 (00:47→16:33)
[2019-02-19] MEDS: MEROPENEM 1GM 100 ML IV SCH ×3 (01:00→16:45)
[2019-02-19] MEDS ORDERED: INFLUENZA VIRUS VAC SPLIT INJ 0.5 ML SYR IM PRN (04:15)
[2019-02-19] MEDS ORDERED: TRAZODONE HCL50 MG PO (05:15)
[2019-02-19] MEDS ORDERED: TIZANIDINE HCL4 MG PO (05:17)
--- NOTE | 2019-02-19 05:50 | NUR ---
Spoke with Bryce from ER to verify attending physician. States to Cancel Dr. Jacome cons per ER MD. Sykes made aware.
--- NOTE | 2019-02-19 07:00 | NUR ---
received am report and rounds done. pt is alert resting in bed, no s/s of distress. call light within reach and instructed pt to call RN for help. family is at the bedside.
[2019-02-19] MEDS: SODIUM CHLORIDE 0.9% 1000ML 1,000 ML IV SCH ×2 (10:54→21:38)
[2019-02-19] MEDS: FENOFIBRATE 48 MG TAB PO SCH (11:00)
[2019-02-19] MEDS ORDERED: SERTRALINE HCL 50 MG TAB PO SCH (11:00)
[2019-02-19] MEDS: CLOPIDOGREL BISULFATE 75 MG TAB PO SCH (11:00)
[2019-02-19] MEDS: PANTOPRAZOLE SOD 40 MG TABEC PO SCH (11:00)
[2019-02-19] MEDS: LEVOTHYROXINE SODIUM 100 MCG TAB PO SCH (11:30)
[2019-02-19] MEDS: INSULIN GLARGINE 100 UNITS/ML VIAL SQ SCH ×2 (12:29→20:54)
[2019-02-19] MEDS: CARVEDILOL 12.5 MG TAB PO SCH ×2 (12:39→20:53)
[2019-02-19] MEDS: LISINOPRIL 20 MG TAB PO SCH (12:40)
[2019-02-19] MEDS: AMLODIPINE BESYLATE 10 MG TAB PO SCH (12:40)
[2019-02-19] MEDS: SERTRALINE HCL 100 MG TAB PO SCH (12:40)
--- NOTE | 2019-02-19 15:48 | NUR ---
GAVE PACKET OF INFORMATION WITH COMM[employer]ITY [employer] FOR ASSISTANCE WITH LOW TO NO INCOME TO PATIENT. RESOURCES THAT PATIENT MAY BE ABLE TO FOLLOW UP UPON DISCHARGE. PT EDUCATED ON EACH RESOURCE AND UNDERSTANDING HOW TO FOLLOW UP TO SEE IF QUALIFIED FOR EACH RESOURCE.
[2019-02-19] MEDS: ENOXAPARIN SOD INJ 40 MG/0.4 ML SYR SC SCH (16:45)
--- NOTE | 2019-02-19 17:40 | History and Physical ---
HISTORY OF PRESENT ILLNESS: This is a 48-year-old male, morbidly obese, history of chronic pancreatitis, hypertriglyceridemia, type 2 diabetes, very noncompliant, has a history of alcohol abuse as well, recently just discharged due to underlying acute pancreatitis, found to be necrotizing on the imaging at that time, comes into the emergency room with complaints of epigastric abdominal pain with chronic pancreatitis pain as well. The patient reports having some pain, nausea, vomiting with no resolve. He was just recently discharged. Reports doing well initially, but they continued to progress or get worse. He does follow up with a GI specialist at [facility]. The patient was seen and evaluated at bedside on the medical floor. He is currently doing much better with no other issues at this time. During my evaluation, vital signs were stable. He was alert and oriented x4. He had very minimal pain during examination. Reports feeling much better compared to when he came in last night. Imaging studies consistent with necrotizing pancreatitis. GI has been consulted. REVIEW OF SYSTEMS: Pertinent positives: Abdominal pain, nausea, and vomiting. Pertinent negatives: Denies any chest pain, palpitation, dysuria, hematuria, frequency, urgency, lightheadedness, dizziness, cough, congestion, fever, or any other complaints. The rest of 14-point review of systems have been reviewed with the patient and are negative. ALLERGIES: NSAIDS, HYDROCODONE, AND BACTRIM. PAST MEDICAL HISTORY: He has chronic pancreatitis, hyperlipidemia, hypertriglyceridemia, hypertension, has peripheral neuropathy, hypertension, type 2 diabetes uncontrolled, history of depression. PAST SURGICAL HISTORY: Reports none. FAMILY HISTORY: Hypertension and diabetes. SOCIAL HISTORY: No drugs. No alcohol. He used to be a drinker in the past, quit two years ago. Does not smoke. PHYSICAL EXAMINATION: VITAL SIGNS: Temperature is 98.5, pulse 88, respiratory rate is 20, blood pressure is 127/71, and pulse ox 97% on room air. GENERAL: Not in acute distress. Alert and oriented x3. Cooperative on examination. HEENT: Head; normocephalic, atraumatic. Eyes; pupils are equal, round, and reactive to light bilaterally. Extraocular movements intact bilaterally. Throat; no evidence of erythema or exudates in the posterior pharynx. Has poor dentition. NECK: Supple. Good range of motion. PULMONARY: Clear to auscultation bilaterally. No wheezing, no rales, no rhonchi, no crackles appreciated. CARDIOVASCULAR: Positive S1 and S2. No murmurs, rubs, or gallops appreciated. ABDOMEN: Soft, nondistended. Tender to palpation in the epigastric region. No rebound. No guarding. Bowel sounds are present. MUSCULOSKELETAL: Strength is 5/5 throughout. No evidence of any muscle deficits on examination. No weakness appreciated. NEUROLOGIC: Cranial nerve II through XII grossly intact. No evidence of any neurological deficits on exam. SKIN: Intact. Warm to touch. Good cap refill. PSYCHIATRIC: Normal affect and mood. EXTREMITIES: No edema. Good range of motion throughout. LABORATORY FINDINGS: Show white count 12.3, hemoglobin 19.3, hematocrit is 47.9, platelets of 180. Chemistry; sodium 136, potassium 3.6, chloride 94, bicarbonate is 20, anion gap of 25.6, creatinine is 1.2, glucose 195, calcium is 10.9. LFTs within normal range. Alkaline phosphatase 83, total protein is 13.9, albumin is 4.6, and lipase is 501. Amylase is 517. Urinalysis, wbc's 6-10. MICROBIOLOGY: None. IMAGING STUDIES: CT abdomen and pelvis shows findings consistent and persistent with pancreatitis, improve along the pancreatic body and increase to the pancreatic head and uncinate process. Punctate focus of air within the pancreatic neck is indeterminate and can be seen in necrotizing. Other alternative may be within the pancreatic duct. No evidence of pancreatic hypoenhancement. Diffuse mild hepatic steatosis and hepatomegaly. IMPRESSION: 1. Hvesl-yd-szcmprt pancreatitis, concerning for necrotizing pancreatitis. 2. Abdominal pain, nausea, vomiting, and dehydration. 3. Type 2 diabetes, uncontrolled. 4. Hypertension. 5. Hypertriglyceridemia. PLAN: At this time, in relation to his pancreatitis, I did go ahead and get a GI consultation. IV Merrem, n.p.o., pain control, IV fluids. Get repeat labs in the morning. The patient looks clinically dehydrated on examination. He reports having some vomiting. Continue with IV fluid hydration at 50 mL/h for now, as there is some reports that he does have underlying heart failure, but I am not able to see that documented anywhere here. As for his diabetes, we will continue with insulin sliding scale, Accu-Cheks. Resume same antihypertensive medications. Once he is able to tolerate diet well, we will consider a clear liquid diet and advance as tolerated. Continue with IV Merrem. Await for GI recommendations for further management and care. Repeat labs including lactic acid, lipase in the morning. IV fluids. PT and OT. Encourage ambulation. Lovenox for DVT prophylaxis. Otherwise, we will continue with same plan of care and monitor very closely. I reviewed the plan of care with the patient and the nursing staff taking care of the patient. MD MONTSERRAT Jung/MODL /[id number]
--- NOTE | 2019-02-19 19:37 | NUR ---
RECEIVED PT IN BED AOX3 RESPIRATIONS ARE EVEN AND UNLABORED .DENIES PAIN F/C .CALL LIGHT WITH IN REACH TELE 19M SHOWS NSR .LAC20 G NS AT 50 CC/HR
[2019-02-19] MEDS: GABAPENTIN 300 MG CAP PO SCH (20:53)
[2019-02-19] MEDS: TRAZODONE HCL 50 MG TAB PO SCH (20:53)
[2019-02-19] MEDS: ATORVASTATIN 40 MG TAB PO SCH (20:53)
[2019-02-19] MEDS ORDERED: CARVEDILOL 3.125 MG TAB PO SCH (21:00)
[2019-02-19] MEDS ORDERED: INSULIN DETEMIR 20 UNIT SQ SCH (21:00)
[2019-02-19] MEDS ORDERED: ONDANSETRON HCL 4 MG ORAL DISINTEGRATING TAB PO PRN (21:30)
[2019-02-20] VITALS (8 sets, daily range): BP systolic 92–116; BP diastolic 53–63
--- NOTE | 2019-02-20 00:22 | Consultation ---
DATE OF CONSULTATION: 02/19/2019 GI Consult REASON FOR CONSULT: Worsening pancreatitis. HISTORY OF PRESENTING ILLNESS: A 48-year-old morbidly obese male with a history of chronic pancreatitis, hypertriglyceridemia, type 2 diabetes, very non-adherent to medical followup. He has a history of alcohol dependence; however, he claims that he has not touched alcohol for the last 2 years. He was recently admitted with acute pancreatitis. He was discharged when he was clinically improved. However, he is coming back again with the worsening of abdominal pain. Repeat CT scan is showing worsening of pancreatitis. GI is being consulted for further evaluation and recommendation. REVIEW OF SYSTEMS: Twelve-point system reviewed. Symptomatology is limited to GI system. PAST MEDICAL HISTORY: Morbid obesity, medical nonadherence, chronic pancreatitis, hypertriglyceridemia, type 2 diabetes, history of alcohol dependence in the past. PAST SURGICAL HISTORY: None. SOCIAL HISTORY: Ex-alcohol dependence, no smoking. No use of any illicit drugs. ALLERGIES: NSAIDS AND SULFA DRUGS. INPATIENT MEDICATIONS: Reviewed as per MAR. He is also getting intravenous meropenem along with IV fluids, other medications reviewed as per MAR. PHYSICAL EXAMINATION: VITAL SIGNS: Temperature 97.5, pulse 70, respiration 20, blood pressure 144/83 to 162/72, oxygen saturation 98% on room air. GENERAL: Not in any acute distress. Obese and large body habitus. HEENT: Oral mucosa is moist. Anicteric sclerae. CVS: S1 and S2 regular. LUNGS: Bilaterally grossly clear. ABDOMEN: Obese, soft. Mild palpable epigastric tenderness on deep palpation without rebound, rigidity, or guarding. Positive bowel sounds. EXTREMITIES: Warm. No leg edema. LABORATORY DATA: WBC 12.33, hemoglobin 19.3, hematocrit 47.9, platelet count 180. Sodium 136, potassium 3.6, chloride 94, bicarb 20, BUN 22, creatinine 1.21. Liver enzymes showed a total bilirubin 0.9, AST 27, ALT 28, alkaline phosphatase 83, albumin 4.6, lipase 501 (normal is 28-78). CT of the abdomen and pelvis with IV contrast showed a finding of persistent pancreatitis, improved along the pancreatic body and increase in pancreatic head and uncinate process. Punctate focus of air within the pancreatic neck is indeterminate, can be seen in necrotizing pancreatitis or alternatively may be within the pancreatic duct. No evidence of pancreatic hypoenhancement. Diffuse and hepatic steatosis, hepatomegaly, normal gallbladder, no gallstones. IMPRESSION: 1. Worsening acute recurrent pancreatitis, likely due to hypertriglyceridemia. 2. Hemoconcentration with elevated hemoglobin. This indicates that the patient needs aggressive fluid resuscitation. PLAN: N.p.o., increase IV normal saline to at least 150 mL an hour, pain management. Monitor him clinically. Repeat labs tomorrow. I thank Dr. Salmeron for allowing me to participate in the care of this patient. Alen Esqueda MD SA/MODL /[id number]
[2019-02-20] MEDS: HYDROMORPHONE 1MG/1ML INJ IV PRN ×6 (00:50→21:30)
[2019-02-20] MEDS: MEROPENEM 1GM 100 ML IV SCH ×3 (01:00→17:35)
[2019-02-20] MEDS: SODIUM CHLORIDE 0.9% 1000ML 1,000 ML IV SCH ×4 (05:22→22:27)
[2019-02-20 05:47] LABS: BASOPHILS % 0.4 % (0.0-1.0); EOSINOPHILS % 0.2 % (0.0-6.0); HEMATOCRIT 48.9 % (38.2-49.6); HEMOGLOBIN 15.7 g/dL (14.0-18.0); LYMPHOCYTES # (AUTO) 1.1 (1.0-3.2); LYMPHOCYTES % 10.2 % (18.0-39.1); MEAN CORPUSCULAR HEMOGLOBIN 31.4 pg (28-32); MEAN CORPUSCULAR HGB CONC 32.1 g/dL (31-35); MEAN CORPUSCULAR VOLUME 97.8 fL (81-99); MONOCYTES # (AUTO) 0.7 (0.2-0.8); MONOCYTES % 6.4 % (4.4-11.3); NEUTROPHILS # (AUTO) 8.6 (2.1-6.9); NEUTROPHILS % 82.5 % (38.7-80.0); PLATELET COUNT 114 x10e3/uL (140-360)
--- NOTE | 2019-02-20 06:16 | NUR ---
PT C/O PAIN AND GIVEN ORDERED PAIN MEDICATION .DR CHAVARRIA INCREASED THE FLUID TO 200CC/HR .CANGED PAIN MEDIATION TO DILAUDID.CALL LIGHT WITH IN REACH .CONTINUE TO MONITOR
--- NOTE | 2019-02-20 06:33 | NUR ---
PT C/O PAIN AND GIVEN ORDERED PAIN MEDICATION .CALL LIGHT WITH IN REACH CONTINUE TO MONITOR
[2019-02-20] MEDS: LEVOTHYROXINE SODIUM 100 MCG TAB PO SCH (06:55)
--- NOTE | 2019-02-20 07:00 | NUR ---
received am report and rounds done. pt is sleeping in bed, no s/s of distress. call light within reach and bed safety implemented.
[2019-02-20 07:10] LABS: ALBUMIN 3.1 g/dL (3.5-5.0); ALBUMIN/GLOBULIN RATIO 0.9 (0.8-2.0); ANION GAP 20.4 mmol/L (8-16); CALCIUM 8.6 mg/dL (8.4-10.2); CREATININE, SERUM 1.49 mg/dL (0.72-1.25); POTASSIUM 3.4 mmol/L (3.5-5.1)
--- NOTE | 2019-02-20 07:17 | NUR ---
BEDSIDE REPORT GIVEN TO THE ONCOMING NURSE
[2019-02-20] MEDS: AMLODIPINE BESYLATE 10 MG TAB PO SCH (08:44)
[2019-02-20] MEDS: CARVEDILOL 12.5 MG TAB PO SCH ×2 (08:44→20:18)
[2019-02-20] MEDS: CLOPIDOGREL BISULFATE 75 MG TAB PO SCH (08:44)
[2019-02-20] MEDS: PANTOPRAZOLE SOD 40 MG TABEC PO SCH (08:44)
[2019-02-20] MEDS: LISINOPRIL 20 MG TAB PO SCH (08:44)
[2019-02-20] MEDS: FENOFIBRATE 48 MG TAB PO SCH (08:44)
[2019-02-20] MEDS: SERTRALINE HCL 100 MG TAB PO SCH (08:45)
[2019-02-20] MEDS: INSULIN GLARGINE 100 UNITS/ML VIAL SQ SCH ×2 (09:00→20:19)
[2019-02-20] MEDS ORDERED: LEVOTHYROXINE SODIUM 50 MCG TAB PO SCH (09:00)
[2019-02-20] MEDS ORDERED: LISINOPRIL 10 MG TAB PO SCH (09:00)
[2019-02-20] MEDS ORDERED: NON-FORMULARY MEDICATION (Atorvastatin Calcium 40 MG) PO SCH (09:00)
[2019-02-20] MEDS ORDERED: FENOFIBRATE 48 MG PO SCH (09:00)
[2019-02-20] MEDS ORDERED: POTASSIUM CHLORIDE 20 MEQ TAB CR PO ONE (10:20)
--- NOTE | 2019-02-20 11:09 | Progress Note ---
DATE: 02/20/2019 Medicine Progress Note SUBJECTIVE: The patient states doing much better today. He is on high doses of IV fluids because he was severely dehydrated. He is doing much better now. Pain is well controlled now. We will go ahead and initiate a clear liquid diet, as he is ready to have some sort of p.o. intake. PHYSICAL EXAMINATION: VITAL SIGNS: Temperature is 97.8, pulse 72, respiratory rate is 20, blood pressure 109/53, and pulse ox 93% on room air. GENERAL: Not in acute distress. Alert and oriented x3. Cooperative on examination. HEENT: Head; normocephalic, atraumatic. Eyes; pupils are equal, round, and reactive to light bilaterally. Extraocular movements intact bilaterally. Throat; no evidence of erythema or exudates in the posterior pharynx. Has poor dentition. NECK: Supple. Good range of motion. PULMONARY: Clear to auscultation bilaterally. No wheezing, no rales, no rhonchi, no crackles appreciated. CARDIOVASCULAR: Positive S1 and S2. No murmurs, rubs, or gallops appreciated. ABDOMEN: Soft, nondistended, and nontender to palpation. Bowel sounds present. MUSCULOSKELETAL: Strength is 5/5 throughout. No evidence of any muscle deficits on examination. No weakness appreciated. NEUROLOGIC: Cranial nerves II through XII grossly intact. No evidence of any neurological deficits on exam. SKIN: Intact. Warm to touch. Good cap refill. PSYCHIATRIC: Normal affect and mood. EXTREMITIES: No edema. Good range of motion throughout. LABORATORY FINDINGS: Show white count is 10.3, hemoglobin 15.7, hematocrit is 48, and platelets of 114. Chemistry; sodium 143, potassium 3.4, chloride 105, bicarb 21, anion gap of 20, BUN is 27, creatinine is 1.49, glucose 175, and calcium is 8.6. LFTs within normal range. Lipase is 95. MICROBIOLOGY: None new. IMAGING STUDIES: None new. IMPRESSION: 1. Kmifb-yt-hzgaekq pancreatitis, concerning for underlying necrotizing pancreatitis. 2. Abdominal pain, nausea, vomiting, and dehydration. 3. Type 2 diabetes, uncontrolled. 4. Hypertension. 5. Hypertriglyceridemia. PLAN: At this time, continue with IV fluids at 200 mL/h NS. He is feeling much better. Labs have improved and he wants to start on diet. I will go ahead and start him on clear liquid diet and I told him to initiate a very slow to see if he tolerates it well. He is on pain control. IV Merrem for IV antibiotic therapy. We will get repeat labs in the morning. GI is following very closely as well. Encourage ambulation. Lovenox for DVT prophylaxis. We will get repeat labs in the morning. MD MONTSERRAT Jung/SHALOM /[id number]
[2019-02-20] MEDS: ENOXAPARIN SOD INJ 40 MG/0.4 ML SYR SC SCH (17:35)
--- NOTE | 2019-02-20 19:12 | NUR ---
RECEIVED PT IN BED AOX3 .DENIES PAIN NS AT 200 CC/HR IS RUNNING .FAMILY AT THE BEDSIDE CALL LIGHT WITH IN REACH .CONTINUE TO MONITOR
[2019-02-20] MEDS: TRAZODONE HCL 50 MG TAB PO SCH (20:18)
[2019-02-20] MEDS: GABAPENTIN 300 MG CAP PO SCH (20:18)
[2019-02-20] MEDS: ATORVASTATIN 40 MG TAB PO SCH (20:18)
[2019-02-21] VITALS (8 sets, daily range): BP systolic 95–145; BP diastolic 52–77
[2019-02-21] MEDS: SODIUM CHLORIDE 0.9% 1000ML 1,000 ML IV SCH ×5 (00:07→23:24)
[2019-02-21] MEDS: MEROPENEM 1GM 100 ML IV SCH ×3 (01:00→17:31)
[2019-02-21] MEDS: HYDROMORPHONE 1MG/1ML INJ IV PRN ×6 (01:30→22:02)
[2019-02-21] MEDS: LEVOTHYROXINE SODIUM 100 MCG TAB PO SCH (06:02)
[2019-02-21 06:09] LABS: BASOPHILS % 0.3 % (0.0-1.0); EOSINOPHILS # (AUTO) 0.1 (0.0-0.4); EOSINOPHILS % 1.5 % (0.0-6.0); HEMATOCRIT 40.4 % (38.2-49.6); HEMOGLOBIN 13.3 g/dL (14.0-18.0); LYMPHOCYTES # (AUTO) 0.9 (1.0-3.2); LYMPHOCYTES % 12.9 % (18.0-39.1); MEAN CORPUSCULAR HEMOGLOBIN 30.9 pg (28-32); MEAN CORPUSCULAR HGB CONC 32.9 g/dL (31-35); MEAN CORPUSCULAR VOLUME 93.7 fL (81-99); MONOCYTES # (AUTO) 0.5 (0.2-0.8); MONOCYTES % 7.3 % (4.4-11.3); NEUTROPHILS # (AUTO) 5.7 (2.1-6.9); NEUTROPHILS % 77.7 % (38.7-80.0); PLATELET COUNT 89 x10e3/uL (140-360); RED BLOOD COUNT 4.31 x10e6/uL (4.3-5.7); RED CELL DISTRIBUTION WIDTH 14.4 % (11.7-14.4)
--- NOTE | 2019-02-21 06:29 | NUR ---
PT C/O PAIN Q3HRS AND GIVEN ORDERED PAIN MEDICATION .CONTINUE TO MONITOR
[2019-02-21 06:34] LABS: ANION GAP 13.2 mmol/L (8-16); BLOOD UREA NITROGEN 17 mg/dL (7-26); BUN/CREATININE RATIO 17 (6-25); CALCIUM 8.4 mg/dL (8.4-10.2); CARBON DIOXIDE 24 mmol/L (22-29); CHLORIDE 103 mmol/L (98-107); CREATININE, SERUM 1.02 mg/dL (0.72-1.25); EST GLOMERULAR FILTRATION RATE > 60 ML/MIN (60-); GLUCOSE 136 mg/dL (74-118); POTASSIUM 3.2 mmol/L (3.5-5.1); SODIUM 137 mmol/L (136-145)
--- NOTE | 2019-02-21 07:04 | NUR ---
REPORT GIVEN TO THE ONCOMING NURSE
[2019-02-21] MEDS: PANTOPRAZOLE SOD 40 MG TABEC PO SCH (08:30)
[2019-02-21] MEDS: CARVEDILOL 12.5 MG TAB PO SCH ×2 (08:31→20:43)
[2019-02-21] MEDS: AMLODIPINE BESYLATE 10 MG TAB PO SCH (08:31)
[2019-02-21] MEDS: CLOPIDOGREL BISULFATE 75 MG TAB PO SCH (08:31)
[2019-02-21] MEDS: FENOFIBRATE 48 MG TAB PO SCH (08:31)
[2019-02-21] MEDS: SERTRALINE HCL 100 MG TAB PO SCH (08:32)
[2019-02-21] MEDS: INSULIN GLARGINE 100 UNITS/ML VIAL SQ SCH ×2 (09:41→22:34)
[2019-02-21 09:51] LABS: AMYLASE 61 U/L (25-125); LIPASE 46 U/L (8-78)
[2019-02-21] MEDS ORDERED: POTASSIUM CHLORIDE 20 MEQ TAB CR PO STA (11:28)
[2019-02-21] MEDS: LISINOPRIL 20 MG TAB PO SCH (11:46)
--- NOTE | 2019-02-21 16:50 | Progress Note ---
DATE: 02/21/2019 Medicine Progress Note SUBJECTIVE: The patient is stating feeling much better today with very minimal pain. We are going to advance his diet to see if he tolerates. He is otherwise doing well with no other issues. OBJECTIVE: VITAL SIGNS: Temperature 97.8, pulse 79, respiratory rate 16, blood pressure 122/64, and pulse ox 94% on room air. GENERAL: Not in acute distress. Alert and oriented x3. Cooperative on examination. HEENT: Head, normocephalic and atraumatic. Eyes, pupils are equal, round, and reactive to light bilaterally. Extraocular movements intact bilaterally. Throat, no evidence of erythema or exudates in the posterior pharynx. Has poor dentition. NECK: Supple. Good range of motion. PULMONARY: Clear to auscultation bilaterally. No wheezing, rales, or rhonchi. No crackles appreciated. CARDIOVASCULAR: Positive S1 and S2. No murmurs, rubs, or gallops appreciated. ABDOMEN: Soft, nondistended, and nontender to palpation. Bowel sounds present. MUSCULOSKELETAL: Strength is 5/5 throughout. No evidence of any muscle deficits on examination. No weakness appreciated. NEUROLOGIC: Cranial nerve II through XII grossly intact. No evidence of any neurological deficits on exam. SKIN: Intact. Warm to touch. Good cap refill. PSYCHIATRIC: Normal affect and mood. EXTREMITIES: No edema. Good range of motion throughout. LABORATORY FINDINGS: Show white count 7.3, hemoglobin 13, hematocrit 40, and platelets of 89. Chemistry; sodium 137, potassium 3.2, chloride 103, bicarb 24, anion gap of 13, BUN 17, creatinine is 1, glucose is 136, and calcium is 8.4. Microbiology, none. IMAGING STUDIES: None. IMPRESSION: 1. Acute on chronic pancreatitis with concerns for underlying necrotizing pancreatitis. 2. Abdominal pain, nausea, vomiting, and dehydration, resolved. 3. Type 2 diabetes, uncontrolled. 4. Hypertension. 5. Hypertriglyceridemia. PLAN: At this time, decrease IV fluids at 100 mL per hour of NS. He is currently doing very well actually. We are going to advance his diet to regular and see if he tolerates it well. Continue with pain control. IV Merrem for IV antibiotic therapy. We will get labs in the morning. Lovenox for DVT prophylaxis. Consult GI. If the patient is doing much better tomorrow and cleared by GI, plan is to discharge home. MD MONTSERRAT Jung/SHALOM /[id number]
[2019-02-21] MEDS: ENOXAPARIN SOD INJ 40 MG/0.4 ML SYR SC SCH (17:31)
--- NOTE | 2019-02-21 18:15 | NUR ---
Nutrition Screen Note RD Recommendation for Physician: -Advance to low fat/diabetic diet when medically appropriate Plan of Care: RD following, monitoring for tolerance and adequacy Nutrition reason for involvement: diagnosis - chronic pancreatitis Primary Diagnose(s): pancreatitis PMH: chronic pancreatitis, HLD, hypertriglyceridemia, HTN, peripheral neuropathy, type 2 diabetes, and depression Ht: 74 in Wt:358 lb BMI: 46.0 kg/m2 IBW:[address] Assessment: (02/21/19) Chart reviewed. Labs and meds reviewed. Pt is a 48 year old male admitted with pancreatitis. Pt mentioned he had been tolerating his liquids and consumption of 75-100% of liquids is documented in chart. Prior to admission, pt declared he usually was eating >50% of his meals. Pt also stated he has lost weight and used to weigh 404 lbs a month and a half ago. However, in December 2018, pt had weights ranging from 358-366 lbs in chart. Pt currently has a wt of 358 lbs in chart. No N/V, but pt reports some diarrhea. Will continue to monitor. Current Diet: Full Liquids Malnutrition Evaluation (02/21/19) The patient does not meet criteria for a specified degree of malnutrition at this time. Will re-evaluate at follow-up as appropriate. Diet Education Needs Assessment: Pt was interested in diet education materials for diabetes and pancreatitis. Pt was not interested in verbal education at time of visit and stated he will read provided materials at a later time. Encouraged pt to contact RD if he has questions. Nutrition Care Level: low Signed: Sita Rosenbaum, NATHEN, STEPHANIE
[2019-02-21] MEDS: TRAZODONE HCL 50 MG TAB PO SCH (20:43)
[2019-02-21] MEDS: ATORVASTATIN 40 MG TAB PO SCH (20:43)
[2019-02-21] MEDS: GABAPENTIN 300 MG CAP PO SCH (20:43)
[2019-02-22] VITALS (9 sets, daily range): BP systolic 110–144; BP diastolic 54–86
[2019-02-22] MEDS: MEROPENEM 1GM 100 ML IV SCH ×3 (01:01→17:00)
[2019-02-22] MEDS: SODIUM CHLORIDE 0.9% 1000ML 1,000 ML IV SCH ×4 (01:07→22:52)
[2019-02-22] MEDS: HYDROMORPHONE 1MG/1ML INJ IV PRN ×6 (02:06→22:51)
[2019-02-22] MEDS: LEVOTHYROXINE SODIUM 100 MCG TAB PO SCH (06:04)
[2019-02-22 06:06] LABS: BASOPHILS % 0.2 % (0.0-1.0); EOSINOPHILS # (AUTO) 0.1 (0.0-0.4); EOSINOPHILS % 1.8 % (0.0-6.0); HEMATOCRIT 41.9 % (38.2-49.6); HEMOGLOBIN 13.9 g/dL (14.0-18.0); MEAN CORPUSCULAR HEMOGLOBIN 30.7 pg (28-32); MEAN CORPUSCULAR HGB CONC 33.2 g/dL (31-35); MEAN CORPUSCULAR VOLUME 92.5 fL (81-99); MONOCYTES # (AUTO) 0.4 (0.2-0.8); MONOCYTES % 6.7 % (4.4-11.3); NEUTROPHILS # (AUTO) 4.5 (2.1-6.9); NEUTROPHILS % 74.8 % (38.7-80.0); PLATELET COUNT 90 x10e3/uL (140-360); RED BLOOD COUNT 4.53 x10e6/uL (4.3-5.7)
[2019-02-22 06:26] LABS: BLOOD UREA NITROGEN 9 mg/dL (7-26); BUN/CREATININE RATIO 13 (6-25); CALCIUM 8.5 mg/dL (8.4-10.2); CARBON DIOXIDE 25 mmol/L (22-29); CHLORIDE 106 mmol/L (98-107); CREATININE, SERUM 0.69 mg/dL (0.72-1.25); EST GLOMERULAR FILTRATION RATE > 60 ML/MIN (60-); GLUCOSE 116 mg/dL (74-118); SODIUM 141 mmol/L (136-145)
--- NOTE | 2019-02-22 06:54 | NUR ---
BEDSIDE SHIFT REPORT RECEIVED FROM OFF GOING NURSE. PATIENT IS RESTING IN BED. NO ACUTE DISTRESS NOTED. CALL LIGHT WITHIN REACH. BED IN THE LOWEST POSITION.
[2019-02-22] MEDS ORDERED: POTASSIUM CHLORIDE 20 MEQ TAB CR PO SCH ×2 (08:30→11:45)
[2019-02-22] MEDS: PANTOPRAZOLE SOD 40 MG TABEC PO SCH (09:33)
[2019-02-22] MEDS: POTASSIUM CHLORIDE 20 MEQ TAB CR PO SCH ×2 (09:33→11:51)
[2019-02-22] MEDS: FENOFIBRATE 48 MG TAB PO SCH (09:35)
[2019-02-22] MEDS: CARVEDILOL 12.5 MG TAB PO SCH ×2 (09:35→21:18)
[2019-02-22] MEDS: CLOPIDOGREL BISULFATE 75 MG TAB PO SCH (09:35)
[2019-02-22] MEDS: LISINOPRIL 20 MG TAB PO SCH (09:35)
[2019-02-22] MEDS: AMLODIPINE BESYLATE 10 MG TAB PO SCH (09:35)
[2019-02-22] MEDS: SERTRALINE HCL 100 MG TAB PO SCH (09:35)
[2019-02-22] MEDS: INSULIN GLARGINE 100 UNITS/ML VIAL SQ SCH ×2 (09:36→21:27)
--- NOTE | 2019-02-22 16:14 | Progress Note ---
DATE: 02/22/2019 Medicine Progress Note SUBJECTIVE: The patient reports doing a little bit better. Still has some abdominal pain. He is tolerating regular diet well with no issues. PHYSICAL EXAMINATION: VITAL SIGNS: Temperature 97.9, pulse 84, respiratory rate is 20, blood pressure 132/89, pulse ox 94% on room air. GENERAL: Not in acute distress. Alert and oriented x3. Cooperative on examination. HEENT: Head, normocephalic and atraumatic. Eyes, pupils are equal, round, and reactive to light bilaterally. Extraocular movements intact bilaterally. Throat, no evidence of erythema or exudates in the posterior pharynx. Has poor dentition. NECK: Supple. Good range of motion. PULMONARY: Clear to auscultation bilaterally. No wheezing, rales, or rhonchi. No crackles appreciated. CARDIOVASCULAR: Positive S1 and S2. No murmurs, rubs, or gallops appreciated. ABDOMEN: Soft, nondistended, and nontender to palpation. Bowel sounds present. MUSCULOSKELETAL: Strength is 5/5 throughout. No evidence of any muscle deficits on examination. No weakness appreciated. NEUROLOGIC: Cranial nerve II through XII grossly intact. No evidence of any neurological deficits on exam. SKIN: Intact. Warm to touch. Good cap refill. PSYCHIATRIC: Normal affect and mood. EXTREMITIES: No edema. Good range of motion throughout. LABORATORY DATA: Lab findings show CBCs reviewed, stable. Chemistry, reviewed shows hypokalemia, which was replaced. IMPRESSION: 1. Yathb-rg-caoqwdm pancreatitis with history of necrotizing pancreatitis, now improving. 2. Abdominal pain, nausea, vomiting, dehydration, resolved. 3. Type 2 diabetes, uncontrolled. 4. Hypertriglyceridemia. 5. Hypertension. PLAN: At this time, just continue with fluids. Advance diet to diabetic diet. He is tolerating diet very well. Continue with IV antibiotics and pain control. He otherwise is doing well. He will likely be discharged tomorrow. He already has pain medications at home. I discussed plan of care with the patient and nursing staff and they verbalized understanding. MD MONTSERRAT Jung/MODShekhar /[id number]
[2019-02-22] MEDS: ENOXAPARIN SOD INJ 40 MG/0.4 ML SYR SC SCH (17:00)
--- NOTE | 2019-02-22 18:50 | NUR ---
BEDSIDE SHIFT REPORT GIVEN TO ONCOMING NURSE. PATIENT IS IN STABLE CONDITION. MEDICATED PATIENT WITH PRN DILAUDID ORDERED. CALL LIGHT WITHIN REACH. BED IN THE LOWEST POSITION.
[2019-02-22] MEDS: ATORVASTATIN 40 MG TAB PO SCH (21:17)
[2019-02-22] MEDS: TRAZODONE HCL 50 MG TAB PO SCH (21:17)
[2019-02-22] MEDS: GABAPENTIN 300 MG CAP PO SCH (21:17)
[2019-02-23] MEDS: MEROPENEM 1GM 100 ML IV SCH ×2 (01:09→08:30)
[2019-02-23] MEDS: HYDROMORPHONE 1MG/1ML INJ IV PRN ×3 (04:13→12:22)
[2019-02-23 05:01] VITALS: BP 140/84
[2019-02-23] MEDS: LEVOTHYROXINE SODIUM 100 MCG TAB PO SCH (05:19)
[2019-02-23 06:59] LABS: BASOPHILS % 0.2 % (0.0-1.0); EOSINOPHILS # (AUTO) 0.1 (0.0-0.4); EOSINOPHILS % 1.6 % (0.0-6.0); HEMATOCRIT 40.8 % (38.2-49.6); HEMOGLOBIN 13.5 g/dL (14.0-18.0); LYMPHOCYTES # (AUTO) 1.1 (1.0-3.2); LYMPHOCYTES % 18.3 % (18.0-39.1); MEAN CORPUSCULAR HEMOGLOBIN 30.5 pg (28-32); MEAN CORPUSCULAR HGB CONC 33.1 g/dL (31-35); MEAN CORPUSCULAR VOLUME 92.1 fL (81-99); MONOCYTES # (AUTO) 0.5 (0.2-0.8); NEUTROPHILS # (AUTO) 4.1 (2.1-6.9); NEUTROPHILS % 70.6 % (38.7-80.0); PLATELET COUNT 100 x10e3/uL (140-360); RED BLOOD COUNT 4.43 x10e6/uL (4.3-5.7); RED CELL DISTRIBUTION WIDTH 13.4 % (11.7-14.4)
[2019-02-23 07:33] LABS: ALANINE AMINOTRANSFERASE 11 IU/L (0-55); ALBUMIN 2.6 g/dL (3.5-5.0); ALBUMIN/GLOBULIN RATIO 0.8 (0.8-2.0); ALKALINE PHOSPHATASE 57 IU/L (40-150); ANION GAP 12.4 mmol/L (8-16); BLOOD UREA NITROGEN 9 mg/dL (7-26); BUN/CREATININE RATIO 12 (6-25); CALCIUM 8.9 mg/dL (8.4-10.2); CARBON DIOXIDE 28 mmol/L (22-29); CHLORIDE 102 mmol/L (98-107); CREATININE, SERUM 0.78 mg/dL (0.72-1.25); EST GLOMERULAR FILTRATION RATE > 60 ML/MIN (60-); GLUCOSE 180 mg/dL (74-118); LIPASE 25 U/L (8-78); POTASSIUM 3.4 mmol/L (3.5-5.1); SODIUM 139 mmol/L (136-145)
[2019-02-23 08:00] VITALS: BP 125/71
--- NOTE | 2019-02-23 08:00 | NUR ---
GLOBAL COMPENSATION ANALYST PT IN BED AWAKE C/O PAIN LEVEL 6 ABD MEDICATED.
[2019-02-23] MEDS: FENOFIBRATE 48 MG TAB PO SCH (08:31)
[2019-02-23] MEDS: CARVEDILOL 12.5 MG TAB PO SCH (08:31)
[2019-02-23] MEDS: CLOPIDOGREL BISULFATE 75 MG TAB PO SCH (08:31)
[2019-02-23] MEDS: AMLODIPINE BESYLATE 10 MG TAB PO SCH (08:31)
[2019-02-23] MEDS: LISINOPRIL 20 MG TAB PO SCH (08:31)
[2019-02-23] MEDS: SERTRALINE HCL 100 MG TAB PO SCH (08:31)
[2019-02-23] MEDS: PANTOPRAZOLE SOD 40 MG TABEC PO SCH (08:32)
[2019-02-23 08:49] VITALS: BP 125/71
[2019-02-23] MEDS: INSULIN GLARGINE 100 UNITS/ML VIAL SQ SCH (09:00)
--- NOTE | 2019-02-23 11:28 | NUR ---
DR RIVERA HERE DCD PT HOME
[2019-02-23] MEDS ORDERED: POTASSIUM CHLORIDE 20 MEQ TAB CR PO ONE (11:45)
[2019-02-23 12:00] VITALS: BP 125/85
--- NOTE | 2019-02-23 14:10 | NUR ---
PT DISCHARGED HOME ,IV DCD WITHOUT REDNESSOR SWELLING,TRANSPORTED TO [facility] VIA W/C
--- NOTE | 2019-02-24 10:55 | Discharge Summary ---
FINAL DISCHARGE DIAGNOSES: 1. Acute on chronic pancreatitis with history of necrotizing pancreatitis, now improved. 2. Abdominal pain, nausea, vomiting, and dehydration, resolved. 3. Type 2 diabetes, uncontrolled. 4. Hypertriglyceridemia. 5. Hypertension. 6. Morbidly obese. CONSULTANTS: GI. PHYSICAL EXAMINATION: VITAL SIGNS: Temperature 97.8, pulse 69, respiratory rate is 18, blood pressure 125/71, pulse ox 95% on room air. LABORATORY FINDINGS: Show white count 5.7, hemoglobin 13.5, hematocrit is 40, platelets of 100. Chemistry; sodium 139, potassium 3.4, chloride 102, bicarb 28, anion gap of 12, BUN is 9, creatinine 0.78, glucose is 180. LFTs within normal range. Albumin is 2.6, lipase is 25, amylase was found to be 61, on admission it was 517, lipase on admission was 501, now 25 on discharge. Urinalysis was negative. MICROBIOLOGY: None. IMAGING STUDIES: CT abdomen and pelvis, which shows finding of persistent pancreatitis improved along the pancreatic body and increase in the pancreatic head and uncinate process. The patient has a history of necrotizing pancreatitis, but has improved tremendously while here in the hospital stay. The patient has hepatic steatosis and hepatomegaly. HOSPITAL COURSE: This is a 48-year-old male, who has a history of chronic pancreatitis, also history of necrotizing pancreatitis in the past, just recently discharged several weeks ago here in our facility, comes back with similar findings of abdominal pain, nausea, vomiting. CT of the abdomen and pelvis consistent with acute on chronic pancreatitis. While here, the patient initially was n.p.o., pain control, IV fluids, and GI was consulted. The patient was started on IV antibiotics, Merrem just for concerns for necrotizing pancreatitis. The patient improved throughout the hospital course in which his diet was advanced back to clear liquids, full liquids and then regular diet. He was tolerating his diet well with no complaints. He had no more abdominal pain, nausea, or vomiting. The patient has had similar admissions with similar findings and has improved tremendously throughout several days in the hospital. He is now back to normal baseline with no complaints. He already has pain medications at home. He will continue with same home medication regimens. There will be no changes in his home regimen. He was advised to follow up with GI very close as an outpatient. Our GI specialist cleared the patient for discharge to home. On the day of discharge, vital signs were stable, labs reviewed and stable. The patient is seen and evaluated, examined thoroughly on the day of discharge. No other complaints. The patient verbalized understanding and agrees to plan of care to follow up accordingly as an outpatient with primary physician in 1 week and GI specialist in 2 weeks' time. MEDICATIONS: See med reconciliation form. DISPOSITION: Home. CONDITION: Stable. DIET: Heart healthy. In the event of any worsening symptoms, the patient was advised to come back to the ED for further evaluation. Discharge summary took greater than 35 minutes. MD MONTSERRAT Jung/SHALOM /[id number]
== END 2019-02-23 14:10 | disposition home or self-care (01) | DRG 439 ==
LOC: ER 19:01 → ERHOLD 22:56 → MED/SURG3 02-19
PROVIDERS: ADMIT Internal Medicine; ATTEND Internal Medicine
DX: K85.91 Acute pancreatitis with uninfected necrosis, unspecified (principal); Z68.42 Body mass index [BMI] 45.0-49.9, adult; E11.22 Type 2 diabetes mellitus with diabetic chronic kidney disease; I12.9 Hypertensive chronic kidney disease with stage 1 through stage 4 chronic kidney disease, or unspecified chronic kidney disease; N18.9 Chronic kidney disease, unspecified; E78.5 Hyperlipidemia, unspecified; Z88.8 Allergy status to other drugs, medicaments and biological substances; Z83.3 Family history of diabetes mellitus; Z82.49 Family history of ischemic heart disease and other diseases of the circulatory system; Z88.5 Allergy status to narcotic agent; Z88.2 Allergy status to sulfonamides; E66.01 Morbid (severe) obesity due to excess calories; F10.21 Alcohol dependence, in remission; E78.1 Pure hyperglyceridemia; E86.0 Dehydration; K76.0 Fatty (change of) liver, not elsewhere classified; Z79.4 Long term (current) use of insulin
CPT/HCPCS: 36415; 74177; 80048; 80053; 81001; 82150; 82948; 83690; 85025; 96361; 96374; 99284; J1170; J1650; J1815; J2270; J2405; J3010; J7030; J7050; Q9967

== ENCOUNTER 2019-08-06 21:00 | Observation (INO) | payer OTHER ==
[~2019-08-06] VITALS: Ht 188 cm; Wt 163.3 kg
[~2019-08-06 21:00] MED LIST changes: +TIZANIDINE HCL4 MG PO; +TRAZODONE HCL50 MG PO
--- OUTSIDE RECORDS SUMMARY | 2019-08-06 21:03 | XMS REPORT | Clinical Summary ---
Author Author [facility] Address Unknown Phone Unavailable Care Team Providers Care Clinical Services Consultant Name Role Phone Chuck Barker 31 Unavailable Fili Bentley MD PCP Unavailable Allergies Comments Active Allergy Reactions Severity Noted Date Sulfamethoxazole-Trimetho Itching High 09/19 prim Hydrocodone-Acetaminophen 02/19/2018 Medications End Date Status [...] Active testosterone cypionate Inject 1 mL 0 01 (DEPOTESTOTERONE intramuscular 8 CYPIONATE) 200 mg/mL ly once every injection 2 weeks. Active carvedilol (COREG) 25 MG Take 25 mg by 0 tablet mouth 2 (two) times daily with breakfast and dinner. 10/04/2019 Active pantoprazole (PROTONIX) Take 1 tablet 20 tablet 0 20 MG tablet (20 mg total) 9 by mouth daily. 02/24/2019 albuterol HFA (VENTOLIN Inhale 2 0 HFA) 90 mcg/actuation puffs by 8 inhaler mouth via inhaler every 6 (six) hours as needed for Wheezing or Shortness of Breath. 02/24/2019 amLODIPine (NORVASC) 10 Take 1 tablet 3 MG tablet (10 mg total) 8 by mouth daily. 02/24/2019 clopidogrel (PLAVIX) 75 Take 1 tablet 3 mg tablet (75 mg total) 8 by mouth daily. 02/24/2019 fenofibrate Take 1 tablet 0 (TRIGLIDE,LOFIBRA) 160 MG (160 mg 8 tablet total) by mouth daily. 02/24/2019 JARDIANCE 25 mg tablet Take 1 tablet 0 01 (25 mg total) 8 by mouth daily. 02/24/2019 levothyroxine (SYNTHROID, Take 1 tablet 0 LEVOTHROID) 100 MCG (100 mcg 8 tablet total) by mouth Every morning on an empty stomach TAKE 1 TABLET BY MOUTH DAILY. 02/24/2019 LIPITOR 40 mg tablet Take 1 tablet 0 (40 mg total) 8 by mouth daily. 02/24/2019 pantoprazole (PROTONIX) Take 1 tablet 0 40 MG tablet (40 mg total) 8 by mouth daily. 02/24/2019 spironolactone Take 1 tablet 0 (ALDACTONE) 25 MG tablet (25 mg total) 8 by mouth daily. 02/24/2019 sertraline (ZOLOFT) 100 Take 1 tablet 0 MG tablet (100 mg 8 total) by mouth daily. 02/24/2019 valsartan-hydrochlorothia Take 1 tablet 0 zide (DIOVAN-HCT) 320-25 by mouth 8 mg per tablet daily. Active Problems Problem Noted Date Leg pain, anterior, left 06/02/2018 Traumatic leg injury, left, initial encounter 2018 CKD stage 2 due to type 2 diabetes mellitus 02/25/20 18 Colitis 02/23/2018 Mild dehydration 02/22/2018 Type 2 diabetes mellitus with hyperlipidemia 018 Hypertensive urgency 02/22/2018 Hypothyroid 02/22/2018 Intractable cyclical [...] CAD (coronary artery disease)- CAD -- non-occlusive b y heart cath - 2006 - 12/03/2014 SLE - Dr. 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 Hypertriglyceridemia 12/15/2012 HTN (hypertension) 10/18/2012 Diabetes mellitus 10/18/2012 Encounters Care Team Description Date Type Specialty Dameon Gautam MD Acute superficial gastritis without hemo rrhage (Primary Dx) 10/04/2018 Emergency Emergency Medicine 10/03/2018 Orders Only General Internal Ar Finn Fontana MD Atypical chest pain (Primary Dx); Right-sided chest wall pain 08/30/2018 Emergency Emergency Medicine 08/30/2018 Orders Only General Internal Me tomás 08/30/2018 Travel after 08/05/2018 Immunizations Name Dates Previously Given Next Due [...] 10/04/2018 5:00 AM CDT Oxygen Saturation 98% - Inhaled Oxygen - Concentration 10/04/2018 12:02 AM CDT Weight 176.4 kg (389 lb) 10/04/2018 12:02 AM CDT Height 195.6 cm (6' 5") 10/04/2018 12:02 AM CDT Body Mass Index 46.13 Plan of Treatment Health Maintenance Due Date Last Done Comments HEMOGLOBIN A1C 09/29/2017 06/30/2017, 017, 04/14/2016, Additional history exists INFLUENZA VACCINE (#1) 2018 02/23/2018, 02/2017, 01/12/2016, Additional history exists Implants Device Identifier Shelf Expiration Date Model / Serial / L ot Implanted Type Area Manufactur er 12/18/2016 3752 / / [id number] Stent Panc Advanix [id number] Str 3752 Stents-Per N/A: Pancr eas [place] - [id number] ipheral SCI:ENDO Implanted: Qty: 1 on 06/22/2016 by Madison Barnard MD Procedures Comments Procedure Name Priority Date/Time Associated Diag nosis REPORT OF PROCEDURE - 10/09/2018 ENDOSCOPY SCAN [...] ms QTC Calculatio n(Bazett) 467 ms P [place] 44 degrees R [place] -33 degrees T [place] 49 degrees Normal sinus rhythm Possible Left atrial enlargemen t Left axis deviation Incomplete right bundle branch block Inferior infarct (cited on or before 8) Cannot rule out Anterior infarct , age undetermin ed Abnormal ECG When compared with ECG of 9 15:26, No significan t change was found ECG 12-LEAD STAT 08/30/2018 2:51 PM CDT after 08/05/2018 Results * EKG-SCANNED (10/09/2018 11:40 AM CDT) Only the most recent of 2 results within the time period is included. Narrative Performed At This result has an attachment that is n ot available. * ECG/EKG Interpretation (10/04/2018 4:47 AM CDT) Narrative Performed [place] [address]:48 AM ECG/EKG Interpretation Date/Time: 10/04/2018 4:47 AM Performed by: Dameon Gautam MD Authorized by: Dameon Gautam M D The ECG was interpreted by ED physician . This ECG was not compared with previous ECG(s).The ECG is interpreted as sinus rhythm. Rate is normal rate. [place] is normal. Clinical Impression: non-specific ECGEC G reviewed and does not meet STEMI criteria. Patient tolerance: Patient to lerated the procedure well with no immediate complications * CBC with platelet count + automated diff (10/04/2018 3:03 AM CDT) Only the most recent of 2 results within the time period is included. WBC 3.8 3.5 - 10.5 K/L [facility] RBC 5.26 4.63 - 6.08 M/L [facility] Hemoglobin 16.2 13.7 - 17.5 GM/DL [facility] Hematocrit 48.0 40.1 - 51.0 % [facility] MCV 91.3 79.0 - 92.2 fL [facility] MCH 30.8 25.7 - 32.2 pg [facility] MCHC 33.8 32.3 - 36.5 GM/DL [facility] RDW 13.7 11.6 - 14.4 % [facility] Platelets 95 (L) 150 - 450 K/CU MM [facility] MPV 11.0 9.4 - 12.4 fL [facility] nRBC 0 0 - 0 /100 WBC [facility] % Neutros 49 % [facility] % Lymphs 36 % [facility] % Monos 11 % [facility] % Eos 3 % [facility] % Baso 0 % [facility] # Neutros 1.87 1.78 - 5.38 K/L [facility] # Lymphs 1.39 1.32 - 3.57 K/L [facility] # Monos 0.41 0.30 - 0.82 K/L [facility] # Eos 0.13 0.04 - 0.54 K/L [facility] # Baso 0.01 0.01 - 0.08 K/L [facility] Immature 1 0 - 1 % [facility] Granulocytes-Relative [facility] Specimen Blood Performing Organization Address [facility] Ph one Number [address] [phone] [place] [address] * Lipase (10/04/2018 3:03 AM CDT) Only the most recent of 2 results within the time period is included. Lipase 38 8 - 78 U/L [facility] Specimen Blood Performing Organization Address City/[facility] Ph one Number [address] [facility] * Amylase (10/04/2018 3:03 AM CDT) Amylase 71 25 - 125 U/L [facility] Specimen Blood Performing Organization Address [facility] Ph one Number [place] [address] [facility] * Hepatic function panel (10/04/2018 3:03 AM CDT) Protein, Total 6.8 6.0 - 8.3 gm/dL [facility] Albumin 3.7 3.5 - 5.0 g/dL [facility] Total Bilirubin 0.4 0.2 - 1.2 mg/dL [facility] Bilirubin, Direct 0.2 0.1 - 0.5 mg/dL [facility] Alkaline Phosphatase 78 40 - 150 U/L [facility] AST 14 5 - 34 U/L [facility] ALT 21 6 - 55 U/L [facility] Specimen Blood Performing Organization Address [facility] one Number [place] [phone] [facility] * Basic Metabolic Panel (10/04/2018 3:03 AM CDT) Sodium 135 (L) 136 - 145 meq/L [facility] Potassium 3.7 3.5 - 5.1 meq/L [facility] Chloride 106 98 - 107 meq/L [facility] CO2 19 (L) 22 - 29 meq/L [facility] BUN 21 7 - 21 mg/dL [facility] Creatinine 1.21 0.57 - 1.25 mg/dL [facility] Glucose 249 (H) 70 - 105 mg/dL [facility] Calcium 8.9 8.4 - 10.2 mg/dL [facility] EGFR 64Comment: ESTIMATED GFR IS mL/min/1.73 sq m [facility] NOT ACCURATE CREATININE [facility] CLEARANCE IN PREDICTING GLOMERULAR FILTRATION RATE. ESTIMATED GFR IS NOT APPLICABLE FOR DIALYSIS PATIENTS. Specimen Blood Performing Organization Address City/[facility] Ph one Number [address] [address] 0 [phone] [address] * ECG 12 lead (10/03/2018 11:55 PM CDT) Only the most recent of 2 results within the time period is included. Specimen Narrative Performed At Ventricular Rate 87 BPM GE MUSE Atrial Rate 87 BPM P-R Interval 202 ms QRS Duration 112 ms Q-T Interval 380 ms QTC Calculation(Bazett) 457 ms P [place] 17 degrees R [place] -23 degrees T [place] 21 degrees Normal sinus rhythm Possible Left atrial enlargement Left ventricular hypertrophy Cannot rule out Inferior infarct (cited on or before 06-DEC-2017) Abnormal ECG When compared with ECG of 30-AUG-2018 1 4:51, No significant change was found Confirmed by MD Jacoby, Hema ([id number]) o n 10/04/2018 4:31:25 PM Procedure Note Interface, External Ris In - 10/04/2018 4:31 PM CDT Ventricular Rate 87 BPM Atrial Rate 87 BPM P-R Interval 202 ms QRS Duration 112 ms Q-T Interval 380 ms QTC Calculation(Bazett) 457 ms P [place] 17 degrees R [place] -23 degrees T [place] 21 degrees Normal sinus rhythm Possible Left atrial enlargement Left ventricular hypertrophy Cannot rule out Inferior infarct (cited on or before 06-DEC-2017) Abnormal ECG When compared with ECG of 30-AUG-2018 14:51, No significant change was found Confirmed by MD Dozier Mahboob ([id number]) on 10/04/2018 4:31:25 PM Performing Organization Address [facility] Ph one Number GE MUSE * PT/aPTT (08/30/2018 3:52 PM CDT) Protime 14.5 (H) 11.9 - 14.2 seconds [facility] INR 1.2 <=5.9 [facility] PTT 26.2 22.5 - 36.0 seconds [facility] Specimen Blood Narrative Performed At Effective 08/16/2018: PT Reference Range Change [facility] New: 11.9-14.2Previous: 11.7-14.7 [facility] MEDICAL CE NTER RECOMMENDED COUMADIN/WARFARIN INR THERA PY RANGES STANDARD DOSE: 2.0-3.0Includes: PRO PHYLAXIS for venous thrombosis, systemic embolization; TREATMENT for venous thro mbosis and/or pulmonary embolus. HIGH RISK: Target INR is 2.5-3.5 for pa tients wiht mechanical heart valves. Performing Organization Address [facility] one Number [place] [phone] [place] [address] * Troponin I (08/30/2018 3:52 PM CDT) Troponin I 0.03 0.00 - 0.03 ng/mL [facility] Specimen Blood Narrative Performed At Troponin I (TnI) levels must be interpreted in the co ntext of the presenting [facility] symptoms and the clinical findings. Elevated TnI leve ls indicate myocardial [facility] damage, but are not specific for ischem ic heart disease. Elevated TnI levels are seen in patients with other cardiac con ditions (including myocarditis and congestive heart failure), and slight T nI elevations occur in patients with other conditions, including sepsis, brad al failure, acidosis, acute neurological disease, and persistent tachyarrhythmia . Performing Organization Address [facility] one Number [place] [phone] [address] [phone] [place] [address] * Magnesium (08/30/2018 3:52 PM CDT) Magnesium 2.2Comment: Specimen slightly 1.6 - 2.6 mg/dL [facility] Specimen Blood Performing Organization Address [facility] one Number [place] [address] [facility] * Comprehensive metabolic panel (08/30/2018 3:52 PM CDT) Protein, Total 7.6Comment: Specimen slightly 6.0 - 8.3 gm/dL [facility] Albumin 4.0Comment: Specimen slightly 3.5 - 5.0 g/dL [facility] Alkaline Phosphatase 76 40 - 150 U/L [facility] Total Bilirubin 0.6Comment: Specimen slightly 0.2 - 1.2 mg/dL [facility] Sodium 139 136 - 145 meq/L [facility] Potassium 3.5Comment: Specimen slightly 3.5 - 5.1 meq/L [facility] Chloride 105 98 - 107 meq/L [facility] CO2 24 22 - 29 meq/L [facility] BUN 26 (H) 7 - 21 mg/dL [facility] Creatinine 1.57 (H)Comment: Specimen 0.57 - 1.25 mg/dL [facility] slightly hemolyzed [facility] Glucose 167 (H) 70 - 105 mg/dL [facility] Calcium 9.7 8.4 - 10.2 mg/dL [facility] AST 27Comment: Specimen slightly 5 - 34 U/L [facility] ALT 32Comment: Specimen slightly 6 - 55 U/L [facility] EGFR 47Comment: ESTIMATED GFR IS mL/min/1.73 sq m [facility] NOT ACCURATE CREATININE [facility] CLEARANCE IN PREDICTING GLOMERULAR FILTRATION RATE. ESTIMATED GFR IS NOT APPLICABLE FOR DIALYSIS PATIENTS. Specimen Blood Narrative Performed At Specimen slightly lipemic [facility] Performing Organization Address City/State/Zipcode Ph one Number [address] [address] [facility] * XR chest 1 view portable / bedside (08/30/2018 3:45 PM CDT) Specimen Narrative Performed At FINAL REPORT [facility] Chest, AP view, two images. History: Chest pain. Comparison: 02/21/2018. Discussion:The cardiomediastinal si lhouette and pulmonary vasculature are within normal limits. T he lungs are clear without evidence of consolidation or effusion. There are no acute osseous abnormalities. The soft tissues are unr emarkable. IMPRESSION: No acute cardiopulmonary abnormality. Signed: Maryann Lawton MD Report Verified Date/Time: 16:00:00 Reading Location: [facility] Reading R oom Procedure Note Interface, External Ris In - 08/30/2018 4:02 PM CDT FINAL REPORT Chest, AP view, two images. History: Chest pain. Comparison: 02/21/2018. Discussion: The cardiomediastinal silhouette and pulmonary vasculature are within normal limits. The lungs are clear without evidence of consolidation or effusion. There are no acute osseous abnormalities. The soft tissues are unremarkable. IMPRESSION: No acute cardiopulmonary abnormality. Signed: Maryann Lawton MD Report Verified Date/Time: 08/30/2018 16:00:00 Reading Location: [facility] Mammo Reading Room Performing Organization Address City/State/Zipcode Ph one Number GE RIS after 08/05/2018 Insurance Payer Benefit Subscriber ID Type Phone Address Plan / Group BLUE CROSS/BLUE SHIELD BCBS HMO xxxxxxxxxxxx HMO/POS [phone] [id number] [address] [place] [address] TIALS OTHER-COMMERCIAL GENERIC xxxxxxxxxxxxx COMMERCIAL [id number] Advance Directives For more information, please contact: [facility] [address] [place] [address] Date Inactivated Comments Code Status Date [...]
--- OUTSIDE RECORDS SUMMARY | 2019-08-06 21:04 | XMS REPORT ---
Author Author [facility] t Organization [facility] Address [address] [facility] [address] [place] [address] Phone Unavailable Support Name Relationship Address Phone EDER RESENDEZ, Lg PADILLA Caregiver [address] [place] [address] Unavailable NONSTAFF Caregiver Unknown Unavailable CHRIS RESENDEZ, KANIKA Caregiver Unknown Unavailable MORA FITZGERALD Next Of Kin [address] [place] [address] ESPERANZA RESENDEZ, Neda DUQUE Caregiver [address] [place] [address] Unavailable NICO RESENDEZ, Dereck HENNESSY Caregiver [address] [facility] [address] [place] [address] GIO RESENDEZ, Katina HONEYCUTT Caregiver [address] [place] [address] Unavailable Shekhar VENCES MD Caregiver [address] [facility] [address] [place] [address] Unavailable FLAVIA RESENDEZ, Anais YEE Caregiver Unknown Unavailable JUAN M RESENDEZ, Katina YICHING Caregiver [address] [address] [place], [place] [address] NICOLE BARNAHRT Next Of Kin [address] [place] [address] RONI CAZARES DO Caregiver [address] [place] [address] Unavailable VALE KENDRICK Caregiver [address] [place] [address] Unavailable NO, FAMILY Caregiver Unknown Unavailable Dereck RIVERA MD Caregiver [address] [facility] [address] [place], [place] [id number] Buddy GARCIAS MD Caregiver [address] [facility] [address] [place] [address] Care Team Providers Care Operations Supervisor Chemical Cleaning Name Role Phone NONSTAFF PCP Unavailable KATERINE, Buddy GUZMAN Attphys Unavailable JUAN M, Katina JONES Attphys Unavailable PARMINDER PEDRO Attphys Unavailable WHITNEY ALCANTARA Attphys Unavailable WHITNEY PINZON Attphys Unavailable TORRES BETTS Attphys Unavailable LUZMARIA ROOT Attphys Unavailable KULDIP WISDOM Attphys Unavailable VANDNAA GUTHRIE Attphys Unavailable GUZMANWON Attphys Unavailable Shekhar VENCES Attphys Unavailable GIO, Katina HONEYCUTT Attphys Unavailable Dereck WALSH Attphys Unavailable EDER, Lg PADILLA Attphys Unavailable HUSCALIXTO, Buddy TAY Attphys Unavailable GUZMAN, Aubree KENNY Attphys Unavailable SABINE, GABE Attphys Unavailable SKEFRUTH JUDGE Attphys Unavailable Katina MCGOWAN Admphys Unavailable OCTAVIO, GIANA Admphys Unavailable ROSA MARIA RUSHING Admphys Unavailable Dereck WALSH ABRAHAM Admphys Unavailable VU CHOI Admphys Unavailable WELLYESSICA, MATTHEW REEDERA Admphys Unavailable JOZEF, DARWIN SABINE Admphys Unavailable Payers Payer Name Policy Type Policy Number Effective Date Expiration Date S gallo [facility] [id number] 2016 00:00:00 [facility] [id number] 2016 00:00:00 [facility] [id number] 2016 00:00:00 [facility] [id number] 2016 00:00:00 [facility] [id number] 2016 00:00:00 [facility] [id number] 2016 00:00:00 [facility] [id number] 2016 00:00:00 [facility] [id number] 2016 00:00:00 [facility] Problems Condition Name Condition Details Condition Category Status Onset Date Resolution Date Last Treatment Date Treating Clinician Comments Source Abdominal pain Abdominal pain Problem Active [facility] Chest pain Chest pain Problem Active [facility] Diabetes mellitus Diabetes Problem Active [facility] Hyperglycemia Hyperglycemia Problem Active [facility] Hypertension Hypertension Problem Active [facility] Obesity Obesity Problem Active [facility] Poorly controlled diabetes mellitus Poorly controlled diabetes m ellitus Problem Active [facility] Urinary tract infection UTI (urinary tract infection) Problem Active [facility] Unstable angina pectoris Unstable angina Problem Active [facility] Vomiting and diarrhea Vomiting and diarrhea Problem Active [facility] Thrombocytopenia Thrombocytopenia Problem Active [facility] Pancreatitis Pancreatitis Problem Active [facility] Allergies, Adverse Reactions, Alerts Allergy Name Allergy Type Status Severity Reaction(s) Onset Date Inacti ve Date Treating Clinician Comments Source NSAIDS (Non-Steroidal Anti-Inflamma Allergy to Substance Active U nknown 2018-12-07 00:00:00 [facility] Hydrocodone Propensity to adverse reactions Active Unknown PALPITATIONS, TACHYCARDIA 2017-10-30 00:00:00 [facility] Sulfamethoxazole Allergy to Substance Active Unknown 2016-01-07 00:00:00 [facility] Trimethoprim Allergy to Substance Active Unknown 2016-01-07 00:00: 00 [facility] Medications Ordered Medication Name Filled Medication Name Start Date Stop Da te Current Medication? Ordering Clinician Indication Dosage Frequency Signature (SIG) Comments Components Source Carvedilol (Coreg) 3.125 Mg Tab Carvedilol (Coreg) 3.125 Mg Tab 2016-10-03 00:00:00 Yes Jayjay Arauz Linotype Worker 12.5 Every 12 Hours [facility] Hydroxyzine Hcl 25 Mg Tablet Hydroxyzine Hcl 25 Mg Tablet 2016-09-18 6 00:00:00 Yes Jayjay Arauz Linotype Worker 50 Every 8 Hours as needed for It marina [facility] Insulin Detemir 100 Unit/Ml Pen Insulin Detemir 100 Unit/Ml Pen 2016-10-03 00:00:00 Yes Jayjay Arauz Linotype Worker 20 Every 12 Hours [facility] Metoclopramide Hcl 10 Mg Tablet Metoclopramide Hcl 10 Mg Tab let 2016-10-03 00:00:00 Yes Jayjay Arauz Np 10 Before Meals And A t Bedtime [facility] Acetaminophen With Codeine (Tylenol With Codeine #3 Tablet) 1 Each Tablet, 300 Mg Oral Acetaminophen With Codeine (Tylenol With Codeine #3 Tablet) 1 Each Tablet, 300 Mg Oral 2016-01-31 00:00:00 2016-10-01 00:00:00 No Yariel Leonard Md 300 Every 4 Hours as needed for Pain [facility] Acetaminophen With Codeine (Tylenol With Codeine #3 Tablet) 1 Each Tablet, 300 Mg Oral Acetaminophen With Codeine (Tylenol With Codeine #3 Tablet) 1 Each Tablet, 300 Mg Oral 2016-01-31 00:00:00 2016-01-31 00:00:00 No Yariel Leonard Md 300 Every 4 Hours as needed for Pain [facility] Sulfamethoxazole/Trimethoprim (Bactrim Ds Tablet) 1 Ea ch Tablet, 1 Each Oral Sulfamethoxazole/Trimethoprim (Bactrim Ds Tablet) 1 Each Tablet, 1 Each Oral 2015-11-11 00:00:00 2016-01-07 00:00:00 No Maribell Dior 1 Twice A Day [facility] Albuterol Sulfate (Proair Hfa Inhaler*) 8.5 Gm Inh Alb uterol Sulfate (Proair Hfa Inhaler*) 8.5 Gm Inh Yes as needed for Nissa rtness Of Breath [facility] Amlodipine Besylate 10 Mg Tablet Amlodipine Besylate 10 Mg Tablet Yes 10 Daily [facility] Atorvastatin Calcium 40 Mg Tablet Atorvastatin Calcium 40 Mg Tablet Yes 40 Daily [facility] Cetirizine Hcl/Pseudoephedrine (Cvs Allergy Relief-D T ablet) 1 Each Tab.er.12h Cetirizine Hcl/Pseudoephedrine (Cvs Allergy Relief-D Tablet) 1 Each Tab.er.12h Yes 150 As Needed [facility] Clopidogrel Bisulfate (Clopidogrel) 75 Mg Tablet Clopi dogrel Bisulfate (Clopidogrel) 75 Mg Tablet Yes 75 Daily [facility] Clotrimazole 15 Gm Cream..g. Clotrimazole 15 Gm Cream..g. Y es 1 for Rash [facility] Empagliflozin (Jardiance) 25 Mg Tablet Empagliflozin (Jardiance) 25 Mg Tablet Yes 25 Daily [facility] Fenofibrate 160 Mg Tablet Fenofibrate 160 Mg Tablet Yes 48 Daily [facility] Gabapentin 300 Mg Capsule Gabapentin 300 Mg Capsule Yes 600 Bedtime [facility] Hydromorphone Hcl 2 Mg Tablet Hydromorphone Hcl 2 Mg Tablet Yes 4 Every 8 Hours as needed for Severe Pain [facility] Levothyroxine Sodium 50 Mcg Tablet Levothyroxine Sodium 50 Mcg Tablet Yes 100 Daily [facility] Lisinopril 10 Mg Tablet Lisinopril 10 Mg Tablet Yes 40 Daily [facility] Pantoprazole Sodium (Protonix) 40 Mg Tablet. Pantopr azole Sodium (Protonix) 40 Mg Tablet. Yes 40 Daily [facility] Sertraline Hcl (Zoloft) 50 Mg Tablet Sertraline Hcl (Zoloft) 50 Mg Tablet Yes 100 Daily [facility] Spironolactone 25 Mg Tablet Spironolactone 25 Mg Tablet Yes 25 Twice A Day [facility] Tizanidine Hcl 4 Mg Tablet Tizanidine Hcl 4 Mg Tablet Yes 4 Every 8 Hours [facility] Trazodone Hcl 50 Mg Tablet Trazodone Hcl 50 Mg Tablet Yes 50 Bedtime [facility] Ursodiol (Parker) 250 Mg Tablet Ursodiol (Parker) 250 Mg Tablet Yes 250 Every Morning [facility] Valsartan/Hydrochlorothiazide (Valsartan-Hctz 320-25 M g Tab) 1 Each Tablet Valsartan/Hydrochlorothiazide (Valsartan-Hctz 320-25 Mg Tab) 1 Each Tablet Yes Daily as needed for Blood Pressure [facility] Baclofen 10 Mg Tablet, 10 Mg Oral Baclofen 10 Mg Tablet, 10 Mg O ral 2019-02-19 00:00:00 No 10 Bedtime [facility] Acetaminophen/Codeine Phosphate (Tylenol # 3*) 1 Ea Ta b, 300 Mg Oral Acetaminophen/Codeine Phosphate (Tylenol # 3*) 1 Ea Tab, 300 Mg Oral 2019-01-05 00:00:00 No 300 Every 6 Hours as nee ded for Pain [facility] Hydrocodone Bit/Acetaminophen (Madeline 10-325 Tablet) 1 Each Tablet, Hydrocodone Bit/Acetaminophen (Madeline 10-325 Tablet) 1 Each Tablet, 2018-01-20 00:00:00 No Every 6 Hours as needed for Pain [facility] Carvedilol 25 Mg Tablet, 6.25 Mg Oral Carvedilol 25 Mg Tablet, 6 .25 Mg Oral 2016-10-03 00:00:00 No 6.25 Every Morning [facility] Insulin Lispro (Humalog) 100 Unit/1 Ml Insuln.pen, 80 Units Sub-Q Insulin Lispro (Humalog) 100 Unit/1 Ml Insuln.pen, 80 Units Sub-Q 2016-10-03 00:00:0 0 No 80 Before Meals [facility] Acetaminophen With Codeine (Tylenol With Codeine #3 Tablet) 1 Each Tablet, 1 Tab Oral Acetaminophen With Codeine (Tylenol With Codeine #3 Tablet) 1 Each Tablet, 1 Tab Oral 2016-10-01 00:00:00 No 1 Every 4 Hours [facility] Albuterol Sulfate (Albuterol Sulfate Hfa) 8.5 Gm Hfa.a er.ad, 2 Dose Inhalation Albuterol Sulfate (Albuterol Sulfate Hfa) 8.5 Gm Hfa.aer.ad, 2 Dose Inhalation 2016-10-01 00:00:00 No 2 Every 6 Hour s as needed for Shortness Of Breath [facility] Amlodipine Besylate/Benazepril (Amlodipi ne-Benazepril 10-40 Mg) 1 Each Capsule, 1 Tab Oral Amlodipine Besylate/Benazepril (Amlodipi ne-Benazepril 10-40 Mg) 1 Each Capsule, 1 Tab Oral 2016-10-01 00:00:00 No 1 Daily [facility] Aspirin (Aspir 81) 81 Mg Tablet., 81 Mg Oral Aspirin (Aspir 81) 81 Mg Tablet., 81 Mg Oral 2016-10-01 00:00:00 No 81 Da warren [facility] Butalbital/Aspirin/Caffeine (Fiorinal 50 -325-40 Mg Capsule) 1 Each Capsule, 1 Cap Oral Butalbital/Aspirin/Caffeine (Fiorinal 50 -325-40 Mg Capsule) 1 Each Capsule, 1 Cap Oral 2016-10-01 00:00:00 No 1 Every 4 Hours as needed for Ain [facility] Cyclobenzaprine Hcl 10 Mg Tablet, 10 Mg Oral Cyclobenz aprine Hcl 10 Mg Tablet, 10 Mg Oral 2016-10-01 00:00:00 No 10 T hree Times A Day as needed for Pain [facility] Famotidine (Pepcid) 20 Mg Tablet, 20 Mg Oral Famotidin e (Pepcid) 20 Mg Tablet, 20 Mg Oral 2016-10-01 00:00:00 No 20 Twice A Day [facility] Hydralazine Hcl 50 Mg Tablet, 10 Mg Oral Hydralazine H cl 50 Mg Tablet, 10 Mg Oral 2016-10-01 00:00:00 No 10 Three Times A Day [facility] Hydroxyzine Hcl 25 Mg Tablet, 25 Mg Oral Hydroxyzine H cl 25 Mg Tablet, 25 Mg Oral 2016-10-01 00:00:00 No 25 Twice A Day [facility] Insulin Aspart (Novolog Mix 70-30 Vial) 100 Units/Ml M l, 60 Units Sub-Q Insulin Aspart (Novolog Mix 70-30 Vial) 100 Units/Ml Ml, 60 Units Sub-Q 2016-10-01 00:00:00 No 60 Three Times A Day [facility] Isosorbide Mononitrate (Isosorbide Mononitrate Er) 30 Mg Tab.er.24h, 30 Mg Oral Isosorbide Mononitrate (Isosorbide Mononitrate Er) 30 Mg Tab.er.24h, 30 Mg Oral 2016-10-01 00:00:00 No 30 Daily [facility] Meloxicam 7.5 Mg Tablet, 15 Mg Oral Meloxicam 7.5 Mg Tablet, 15 Mg Oral 2016-10-01 00:00:00 No 15 Daily [facility] Metformin Hcl 500 Mg Tablet, 500 Mg Oral Metformin Hcl 500 Mg Tablet, 500 Mg Oral 2016-10-01 00:00:00 No 500 Twice A Day [facility] Ondansetron (Zofran Odt) 4 Mg Tab.rapdis, 4 Mg Ondanse frieda (Zofran Odt) 4 Mg Tab.rapdis, 4 Mg 2016-10-01 00:00:00 No 4 Every 6 Hours as needed for Nausea And Vomiting [facility] Tramadol Hcl (Ultram 50MG*) 50 Mg Tab, 50 Mg Oral Tram adol Hcl (Ultram 50MG*) 50 Mg Tab, 50 Mg Oral 2016-10-01 00:00:00 No 50 Every 6 Hours as needed for Pain [facility] Ibuprofen 400 Mg Tablet, 800 Mg Oral Ibuprofen 400 Mg Tablet, 80 0 Mg Oral 2016-01-14 00:00:00 No 800 Every 4 Hours [facility] Dicyclomine Hcl 20 Mg Tablet, 20 Mg Oral Dicyclomine H cl 20 Mg Tablet, 20 Mg Oral 2016-01-07 00:00:00 No 20 Every 6 Hours [facility] Doxycycline Hyclate 100 Mg Capsule, 100 Mg Oral Doxycy cerrato Hyclate 100 Mg Capsule, 100 Mg Oral 2016-01-07 00:00:00 No 100 Mary ly [facility] Hydrocodone/Chlorphen Polis (Tussionex P ennkinetic Susp) 480 Ml Julia.er.12h, 5 Ml Oral Hydrocodone/Chlorphen Polis (Tussionex P ennkinetic Susp) 480 Ml Julia.er.12h, 5 Ml Oral 2016-01-07 00:00:00 No 5 Q12hrs [facility] Levofloxacin 500 Mg Tablet, 500 Mg Oral Levofloxacin 500 Mg Tablet, 500 Mg Oral 2016-01-07 00:00:00 No 500 Daily [facility] Tramadol Hcl (Ultram 50MG*) 50 Mg Tab, 50 Mg Oral Tram adol Hcl (Ultram 50MG*) 50 Mg Tab, 50 Mg Oral 2016-01-07 00:00:00 No 50 Q4-6H RS [facility] Nitroglycerin (Nitrostat) 0.4 Mg Tab.subl, 0.4 Mg Subl ingual Nitroglycerin (Nitrostat) 0.4 Mg Tab.subl, 0.4 Mg Sublingual 2015-11-07 00:00:00 No .4 As Needed [facility] Procedures Procedure Date / Time Performed Performing Clinician [facility] e Computed tomography of abdomen and pelvis with contrast 2018 00:00:00 ADELINE ROSS [facility] INSERTION OF INFUSION DEV INTO SUP VENA CAVA, PERC APPROACH 2019-01-08 00:00:00 HOLLIS CHARLTON [facility] US abdomen complete 2019-01-05 00:00:00 DC VENCES [facility] Computed tomography of abdomen and pelvis with contrast 2018 00:00:00 VALE KENDRICK [facility] INSERTION OF FEEDING DEVICE INTO JEJUNUM, VIA OPENING 12-12 00:00:00 NAKUL LANDAVERDE [facility] EXCISION OF LOWER ESOPHAGUS, ENDO, DIAGN 2018-12-08 00:00:00 [facility] EXCISION OF STOMACH, PYLORUS, ENDO, DIAGN 2018-12-08 00:00:00 MONIKA PLASCENCIA [facility] Computed tomography of abdomen and pelvis with contrast 2018 00:00:00 RONI CAZARES [facility] Encounters Start Date/Time End Date/Time Encounter Type [facility] Department Encounter ID Source 2019-02-18 22:56:00 2019-02-23 14:10:00 Discharged Inpatient [address] [facility] [id number] [facility] 2019-01-04 22:23:00 2019-01-12 16:50:00 Discharged Inpatient [address] [facility] [id number] [facility] 2018-12-09 13:12:00 2018-12-15 20:00:00 Discharged Inpatient [address] [facility] [id number] [facility] 2018-02-10 15:44:00 2018-02-11 19:30:00 Admitted Inpatient (obs) [address] [facility] [id number] [facility] 2017-11-03 03:44:00 2017-11-03 04:45:00 Departed Emergency Room [address] [facility] [id number] [facility] 2017-10-30 19:55:00 2017-10-30 23:14:00 Departed Emergency Room [address] [facility] [id number] [facility] 2017-08-22 18:34:00 2017-08-24 19:45:00 Discharged Inpatient (obs) [address] [facility] [id number] [facility] 2017-06-20 11:38:00 2017-06-20 16:31:00 Departed Emergency Room ER VALERIE GAINES [facility] [id number] [facility] 2017-03-06 11:10:00 2017-03-06 12:28:[address] [facility] [id number] [facility] 2017-03-04 19:57:00 2017-03-04 23:29:00 Departed Emergency Room ER JASVIR BUENO [facility] [id number] [facility] 2016-12-02 10:59:00 2016-12-02 13:15:00 Departed Emergency Room ER EFRAÍN GUZMAN [facility] [id number] [facility] 2016-11-23 00:04:00 2016-11-23 01:45:[address] [facility] [id number] [facility] 2016-10-01 05:16:00 2016-10-04 12:25:[address] [facility] [id number] [facility] Results Test Description Test Time Test Comments Results Result Comments Source Bedside Glucose 2019-02-23 11:43:00 Test Item Bedside Glucose (test code = 25469-2) 204 70-120 Meter ID: [id number] Level 2019-02-23 07:34:00* Test Item Value Reference Range Interpretation Comments Sodium Level (test code = 2951-2) 139 136-145 [facility]Potassium [id number] 07:34:00* Test Item Value Reference Range Interpretation Comments Potassium Level (test code = 2823-3) 3.4 3.5-5.1 [facility] CenterChloride [id number] 07:34:00* Test Item Value Reference Range Interpretation Comments Chloride Level (test code = 2075-0) 102 98-107 [facility] CenterCarbon Dioxide [id number] 07:34:00* Test Item Value Reference Range Interpretation Comments Carbon Dioxide Level (test code = 2028-9) 28 22-29 [facility] CenterAnion [id number] 07:34:00* Test Item Value Reference Range Interpretation Comments Anion Gap (test code = 31952-1) 12.4 8-16 [facility] CenterBlood Urea [id number] 07:34:00* Test Item Value Reference Range Interpretation Comments Blood Urea Nitrogen (test code = 3094-0) 9 7-26 [facility] CenterCreatinine2019-12-06 07:34:00* Test Item Value Reference Range Interpretation Comments Creatinine (test code = 2160-0) 0.78 0.72-1.25 [facility] CenterBUN/Creatinine [id number] 07:34:00* Test Item Value Reference Range Interpretation Comments BUN/Creatinine Ratio (test code = 3097-3) 12 6- [facility] CenterEstimat Glomerular Filtration Rate 2019-02-23 07:34:00* Test Item Value Reference Range Interpretation Comments Estimat Glomerular Filtration Rate (test code = 143696277) > 60 >60 Ranges were taken from the National Kidney Disease Education Program and the [facility] literature.Reference ranges:60 or greater: Fvfkyv65-56 ( for 3 consecutive months): Chronic kidney disease 15 or less: Kidney failureCHI [facility] Herm[facility] Cyp[facility] HospitalGlucose [id number] 07:34:00* Test Item Value Reference Range Interpretation Comments Glucose Level (test code = VQG2044) 180 74-118 [facility] CenterCalcium [id number] 07:34:00* Test Item Value Reference Range Interpretation Comments Calcium Level (test code = 92304-1) 8.9 8.4-10.2 [facility] CenterTotal [id number] 07:34:00* Test Item Value Reference Range Interpretation Comments Total Bilirubin (test code = 1975-2) 0.6 0.2-1.2 [facility] CenterAspartate Amino Transf (AST/SGOT) 2019-02-23 07:34:00* Test Item Value Reference Range Interpretation Comments Aspartate Amino Transf (AST/SGOT) (test code = Aspartate Amino Transf (AST/SGOT)) 12 5-34 [facility] CenterAlanine Aminotransferase (ALT/SGPT) 2019-02-23 07:34:00* Test Item Value Reference Range Interpretation Comments Alanine Aminotransferase (ALT/SGPT) (test code = 1742-6) 11 0-55 [facility] CenterTotal [id number] 07:34:00* Test Item Value Reference Range Interpretation Comments Total Protein (test code = 2885-2) 5.9 6.5-8.1 [facility] CenterAlbumin2019-12-06 07:34:00* Test Item Value Reference Range Interpretation Comments Albumin (test code = 1751-7) 2.6 3.5-5.0 [facility] CenterGlobulin2019-12-06 07:34:00* Test Item Value Reference Range Interpretation Comments Globulin (test code = 74299-1) 3.3 2.3-3.5 [facility] CenterAlbumin/Globulin [id number] 07:34:00 * Test Item Value Reference Range Interpretation Comments Albumin/Globulin Ratio (test code = 1759-0) 0.8 0.8-2.0 [facility] CenterAlkaline Lkyeoibmwdm3210-81-49 07:34:00* Test Item Value Reference Range Interpretation Comments Alkaline Phosphatase (test code = 6768-6) 57 40-150 [facility] CenterLipase2019-12-06 07:34:00* Test Item Value Reference Range Interpretation Comments Lipase (test code = 3040-3) 25 8-78 [facility] CenterWhite Blood [id number] 07:07:00* Test Item Value Reference Range Interpretation Comments White Blood Count (test code = 6690-2) 5.75 4.8-10.8 [facility] CenterRed Blood [id number] 07:07:00* Test Item Value Reference Range Interpretation Comments Red Blood Count (test code = 789-8) 4.43 4.3-5.7 [facility] CenterHemoglobin2019-12-06 07:07:00* Test Item Value Reference Range Interpretation Comments Hemoglobin (test code = 82080-5) 13.5 14.0-18.0 [facility] CenterHematocrit2019-12-06 07:07:00* Test Item Value Reference Range Interpretation Comments Hematocrit (test code = 4544-3) 40.8 38.2-49.6 [facility] CenterMean Corpuscular [id number] 07:07:00* Test Item Value Reference Range Interpretation Comments Mean Corpuscular Volume (test code = 787-2) 92.1 81-99 [facility] CenterMean Corpuscular Eyqyupanac9745-87-12 07:07:00* Test Item Value Reference Range Interpretation Comments Mean Corpuscular Hemoglobin (test code = 785-6) 30.5 28-32 [facility] CenterMean Corpuscular Hemoglobin Concent 2019-02-23 07:07:00* Test Item Value Reference Range Interpretation Comments Mean Corpuscular Hemoglobin Concent (test code = 786-4) 33.1 31-35 [facility] CenterRed Cell Distribution [id number] 07:07:00* Test Item Value Reference Range Interpretation Comments Red Cell Distribution Width (test code = 00388-8) 13.4 11.7 -14.4 [facility] CenterPlatelet [id number] 07:07:00* Test Item Value Reference Range Interpretation Comments Platelet Count (test code = 777-3) 100 140-360 [facility] CenterNeutrophils (%) (Auto)2019-02-23 07:07:00 * Test Item Value Reference Range Interpretation Comments Neutrophils (%) (Auto) (test code = 25508-9) 70.6 38.7-80.0 [facility] CenterLymphocytes (%) (Auto)2019-02-23 07:07:00 * Test Item Value Reference Range Interpretation Comments Lymphocytes (%) (Auto) (test code = 736-9) 18.3 18.0-39.1 [facility] CenterMonocytes (%) (Auto)2019-02-23 07:07:00* Test Item Value Reference Range Interpretation Comments Monocytes (%) (Auto) (test code = 5905-5) 9.0 4.4-11.3 [facility] CenterEosinophils (%) (Auto)2019-02-23 07:07:00 * Test Item Value Reference Range Interpretation Comments Eosinophils (%) (Auto) (test code = 713-8) 1.6 0.0-6.0 [facility] CenterBasophils (%) (Auto)2019-02-23 07:07:00* Test Item Value Reference Range Interpretation Comments Basophils (%) (Auto) (test code = 706-2) 0.2 0.0-1.0 [facility] CenterIM GRANULOCYTES %2019-02-23 07:07:00* Test Item Value Reference Range Interpretation Comments IM GRANULOCYTES % (test code = IM GRANULOCYTES %) 0.3 0.0- 1.0 [facility] CenterNeutrophils # (Auto)2019-02-23 07:07:00* Test Item Value Reference Range Interpretation Comments Neutrophils # (Auto) (test code = 751-8) 4.1 2.1-6.9 [facility] CenterLymphocytes # (Auto)2019-02-23 07:07:00* Test Item Value Reference Range Interpretation Comments Lymphocytes # (Auto) (test code = 01943-8) 1.1 1.0-3.2 [facility] CenterMonocytes # (Auto)2019-02-23 07:07:00* Test Item Value Reference Range Interpretation Comments Monocytes # (Auto) (test code = 742-7) 0.5 0.2-0.8 [facility] CenterEosinophils # (Auto)2019-02-23 07:07:00* Test Item Value Reference Range Interpretation Comments Eosinophils # (Auto) (test code = 711-2) 0.1 0.0-0.4 [facility] CenterBasophils # (Auto)2019-02-23 07:07:00* Test Item Value Reference Range Interpretation Comments Basophils # (Auto) (test code = 704-7) 0.0 0.0-0.1 [facility] Center[facility] Immature Granulocyte (auto 2019-02-23 07:07:00* Test Item Value Reference Range Interpretation Comments Absolute Immature Granulocyte (auto (edmundo t code = Absolute Immature Granulocyte (auto) 0.02 0-0.1 [facility] CenterAmylase Ozucu1947-86-48 09:57:00* Test Item Value Reference Range Interpretation Comments Amylase Level (test code = 1798-8) 61 25-125 [facility] CenterCT [facility]/PELVIS [id number] 21:57:00 [facility] [address] [place] [address] Patient Name: DC BARNHART MR #: [id number] : Age/Sex: 48/M Req #: [id number] [facility] Physician: Ordered by: ADELINE ROSS NP Report #: [id number] Location: ER Room/Bed: Procedure: [id number] 0020 CT/CT ABDOMEN/PELVIS W Exam Date: 02/18/19 Exam Time: 2114 REPORT STATUS: Signed EXAM: CT Abdomen and Pelvis WITH contrast INDICATION: Upper quadrant pa in. COMPARISON: CT abdomen/pelvis 01/04/2019. TECHNIQUE: Abdomen and p amisha were scanned utilizing a multidetector helical scanner from the lung bas e to the pubic symphysis after administration of IV contrast. Coronal and sagi ttal reformations were obtained. Routine protocol was performed. Scan was perf ormed when during portal venous phase. IV CONTRAST: 100 cc of Isovue- 370. ORAL CONTRAST: None. COMPLICATIONS: None RADIA TION DOSE: Total DLP: 1420.2 mGy*cm Estimated effective dose: (DL P x 0.015 x size factor) mSv CTDIvol has been reviewed. It is below the l imits set by the Radiation Protocol Committee (RPC). FINDINGS: LINES an d TUBES: None. LOWER THORAX: Unremarkable HEPATOBILIARY: Diffuse mild hepatic steatosis. Hepatomegaly. No evidence of focal lesion. No biliary duct al dilation. GALLBLADDER: No radio-opaque stones or sludge. No wall thick ening. SPLEEN: No splenomegaly. Unchanged exophytic splenic cyst. PANC REAS: There is increasing. Pancreatic stranding and fullness at the pancreatic head and uncinate process, and decreasing inflammatory changes in the body. No evidence of pancreatic hypoenhancement or peripancreatic collection. Unchanged punctate focus of air in the pancreatic neck on series 2, image 32, which may be within the duct. ADRENALS: No adrenal nodules KIDNEYS/URETERS: Kidneys enhance symmetrically. No evidence of hydronephrosis, solid mass, or s tone. GI TRACT: No evidence of wall thickening or distension. Appendix is normal. PELVIC ORGANS/BLADDER: Unremarkable. LYMPH NODES: No lymphade nopathy. 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 Mild atherosclerotic calcifications of the abdominal aorta and branch vessels. PERITONEUM / RETROPERITONEUM: No free air or fluid. BONES AND SOFT TISSUES: Degenerative changes of spine. Unchanged mild anterior wedging of T11 and T12 vertebral bodies. CONCLUSION: Findings of persist ent pancreatitis, improved along the pancreatic body, and increased in the simpson creatic head and uncinate process. Punctate focus of air within the pancreatic neck is indeterminate, and can be seen in necrotizing pancreatitis or alterna tively may be within the pancreatic duct. No evidence of pancreatic hypoenhanc ement. Diffuse mild hepatic steatosis and hepatomegaly. Signed by: Dr Rigoberto Villa MD on 02/18/2019 10:05 PM Dictated By: MENDY VILLA MD Electr onically Signed By: MENDY VILLA MD on 02/18/192204 Transcribed By: SOSA on 04/21/182204 COPY TO: ADELINE ROSS MODELING ANALYST Urine [id number] 20:46:00* Test Item Value Reference Range Interpretation Comments Urine WBC (test code = 5821-4) 6-10 0-5 [facility] Center[facility] WWG4326-25-67 20:46:00* Test Item Value Reference Range Interpretation Comments Urine RBC (test code = 05229-3) 6-10 0-5 [facility] Center[facility] Xfmqjzls7546-58-44 20:46:00* Test Item Value Reference Range Interpretation Comments Urine Bacteria (test code = 78150-3) RARE NONE [facility] CenterU[facility] Epithelial Deqnc8594-65-12 20:46:00 * Test Item Value Reference Range Interpretation Comments Urine Epithelial Cells (test code = 50804-7) FEW NONE [facility] CenterU[facility] Dfyby8934-26-83 20:43:00* Test Item Value Reference Range Interpretation Comments Urine Color (test code = 5778-6) YELLOW YELLOW [facility] CenterU[facility] Arnuthp0805-42-94 20:43:00* Test Item Value Reference Range Interpretation Comments Urine Clarity (test code = 43533-4) CLEAR CLEAR [facility] CenterU[facility] Specific Nvftvho1133-53-93 20:43:00 * Test Item Value Reference Range Interpretation Comments Urine Specific Malo (test code = 5811-5) 1.015 1.010-1.02 5 [facility] CenterU[facility] tP2733-66-28 20:43:00* Test Item Value Reference Range Interpretation Comments Urine pH (test code = 51411-0) 6 5-7 [facility] Center[facility] Leukocyte Dpsibwbs3775-49-46 20:43:00* Test Item Value Reference Range Interpretation Comments Urine Leukocyte Esterase (test code = 22409-5) NEGATIVE NEGATIV E [facility] Oaobmen3214-27-94 20:43:00* Test Item Value Reference Range Interpretation Comments Urine Nitrite (test code = 30592-9) NEGATIVE NEGATIVE [facility] Zhoheul6105-19-57 20:43:00* Test Item Value Reference Range Interpretation Comments Urine Protein (test code = 47221-5) 2+ NEGATIVE [facility] Glucose (UA)2019-02-18 20:43:00* Test Item Value Reference Range Interpretation Comments Urine Glucose (UA) (test code = 26368-6) 3+ NEGATIVE [facility] Center[facility] Iboixpx5033-58-07 20:43:00* Test Item Value Reference Range Interpretation Comments Urine Ketones (test code = 43944-4) 1+ NEGATIVE [facility] Syjzaplxqpai1992-20-03 20:43:00* Test Item Value Reference Range Interpretation Comments Urine Urobilinogen (test code = 99329-6) 0.2 0.2-1 [facility] Center[facility] Qoqihqedj9057-32-75 20:43:00* Test Item Value Reference Range Interpretation Comments Urine Bilirubin (test code = 1977-8) SMALL NEGATIVE [facility] CenterU[facility] Tmtjn4928-63-55 20:43:00* Test Item Value Reference Range Interpretation Comments Urine Blood (test code = 06745-4) TRACE NEGATIVE [facility] CenterPlatelet Hrjfchao8589-31-18 09:57:00* Test Item Value Reference Range Interpretation Comments Platelet Estimate (test code = 86928-1) MARKEDLY DECREASED [facility] CenterPlatelet Morphology Wouhrse2675-01-88 09:57:00* Test Item Value Reference Range Interpretation Comments Platelet Morphology Comment (test code = 12733-0) NO EDTA PLT CLUMP S SEEN [facility] CenterRed Cell Morphology Xfaxxrs0995-64-13 09:57:00* Test Item Value Reference Range Interpretation Comments Red Cell Morphology Comment (test code = 6742-1) NORMAL [facility] CenterTriglycerides Fkwpb6434-61-91 05:47:00* Test Item Value Reference Range Interpretation Comments Triglycerides Level (test code = 2571-8) 603 0-149 [facility] CenterCholesterol Aegzj4270-15-55 05:47:00* Test Item Value Reference Range Interpretation Comments Cholesterol Level (test code = 2093-3) 423 0-199 Less than 200 mg/dL Low Dyit432 - 239 mg/dL Borderline Pwvy420 m g/dl and greater High Risk [facility] CenterHDL Gxqxgrcujjf7304-53-38 05:47:00* Test Item Value Reference Range Interpretation Comments HDL Cholesterol (test code = 2085-9) 17 40-60 [facility] CenterCholesterol/HDL Mecrl1108-20-31 05:47:00 * Test Item Value Reference Range Interpretation Comments Cholesterol/HDL Ratio (test code = 9830-1) 24.9 3.9-4.7 [facility] CenterPhosphorus Vetqz2081-21-46 05:25:00* Test Item Value Reference Range Interpretation Comments Phosphorus Level (test code = KBY1045) 3.2 2.3-4.7 [facility] CenterMagnesium Lgypu0099-13-10 05:25:00* Test Item Value Reference Range Interpretation Comments Magnesium Level (test code = 16199-9) 1.5 1.3-2.1 [facility] CenterCHEST XRAY LINE KLNVVRLCL7718-17-46 17:28:00 [place] [address] Patient Name: DC BARNHART MR #: [id number] : 1970 Age/Sex: 48/M Req #: [id number] [facility] Physician: KAREN MCGOWAN MD Ordered by: KAREN MCGOWAN MD Report #: [id number] Location: ICU Room/Bed: ICU [facility] Procedure: [id number] DX /CHEST XRAY LINE PLACEMENT Exam Date: 01/08/19 Exam Time: 1640 REPORT STATUS: Signed EXAMINATION: CHEST XRAY LINE PLACEMENT INDICATION: Abdominal cynthia n. Obesity. Line placement COMPARISON: 02/11/2018 FINDINGS : TUBES and LINES: Left peripherally inserted central venous catheter with distal tip over the right atrial/superior vena cava junction. LUNGS: Lungs are well inflated. Lungs are clear. There is no evidence of pneumonia or p ulmonary edema. PLEURA: No pleural effusion or pneumothorax. HEART AN D MEDIASTINUM: The cardiomediastinal silhouette is unremarkable. BONES AND SOFT TISSUES: No acute osseous lesion. Soft tissues are unremarkable. UPPER ABDOMEN: No free air under the diaphragm. IMPRESSION: Left peripherally inserted central venous catheter with distal tip over the right atrial/superior vena cava junction. Signed by: Dr. Hollis Charlton M.D. on 01/08/2019 5:29 PM Dictated By: HOLLIS CHARLTON MD, MD Electronically Myah d By: HOLLIS CHARLTON MD, MD on 01/08/191728 Transcribed By: SOSA on 01/08/191728 COPY TO: KAREN MCGOWAN MD Direct Kubalmvgs7896-54-77 06:43:00* Test Item Value Reference Range Interpretation Comments Direct Bilirubin (test code = 23639-8) 0.1 0.0-0.5 [facility] CenterThyroid Stimulating Hormone (TSH) 2019-01-06 06:43:00* Test Item Value Reference Range Interpretation Comments Thyroid Stimulating Hormone (TSH) (test code = 87409-9) 2.324 0.350-4.940 [facility] CenterProthrombin Rwwe8569-95-65 06:17:00* Test Item Value Reference Range Interpretation Comments Prothrombin Time (test code = 5902-2) 15.0 11.9-14.5 [facility] CenterProthromb Time International Ratio 2019-01-06 06:17:00* Test Item Value Reference Range Interpretation Comments Prothromb Time International Ratio (test code = 6301-6) 1.13 Oral Anticoagulant Therapy INR Values:1. Low Intensity Therapy 1.5 - 2.02 . Moderate Intensity Therapy 2.0 - 3.03. High Intensity Therapy(1) 2.5 - 3. 54. High Intensity Therapy(2) 3.0 - 4.05. Panic Value INR > 5.0 [facility] CenterActivated Partial Thromboplast Time 2019-01-06 06:17:00* Test Item Value Reference Range Interpretation Comments Activated Partial Thromboplast Time (test code = 50698-1) 34.6 23.8-35.5 [facility] CenterUS ABDOMEN DSISXTQC6195-45-22 09:41:00 [facility] [address] [place] [address] Patient Name: DC BARNHART MR #: [id number] : 1970 Age/Sex: 48/M Req #: [id number] Adm Physician: KAREN MCGOWAN MD Ordered by: DC VENCES MD Report #: [id number] Location: MED/SURG3 Room/Bed: [facility] Procedure: 1018- 0003 US/US ABDOMEN COMPLETE Exam Date: 01/05/19 Exam Time: 0838 REPORT STATUS: Signed EXAM: US ABDOMEN COMPLETE DATE: 01/05/2019 12:00 AM INDICATION: Pancre atitis COMPARISON: CT abdomen and pelvis of 01/04/2019 TECHNIQUE: Transvers e and longitudinal blanc scale and color doppler sonographic images of the uppe r abdomen were obtained. FINDINGS: There is no evidence of fluid or mas ses seen in the area of clinical concern in the right lower quadrant. LIVER 18.9 cm in the right midclavicular line. Increased echogenicity of t he liver with normal contour, no masses. SPLEEN 13.5 cm in maximum diamet er. Normal echogenicity, no masses. GALLBLADDER No gallbladder wall thi ckening, distension, stone, or pericholecystic fluid. NEgative reported sonogr aphic Hurt's sign. Gallbladder wall measures 3 mm BILE DUCTS No intra n or extra-hepatic biliary dilation. Common bile duct measures 3mm PANCREAS : Not visualized due to overlying bowel gas. RIGHT KIDNEY: 12.5 cm Echoge nicity: Normal Collecting System: No hydronephrosis Stones: None Cyst/Ma ss: None LEFT KIDNEY: 11.5 cm Echogenicity: Normal Collecting System: No hydronephrosis Stones: None Cyst/Mass: None VESSELS: Aorta: Not v isualized due to overlying bowel gas. Inferior Vena Cava: Normal. Main Filipe l Vein: Not visualized due to overlying bowel gas. FREE FLUID: None IM PRESSION: Hepatomegaly and hepatic steatosis. No sonographic evidence of cholelithiasis or cholecystitis. Pancreas not visualized due to overlying b owel gas. Signed by: Nakul Landaverde MD on 01/05/2019 9:44 AM Dictated B y: NAKUL LANDAVERDE MD Cazares scribed By: SOSA on 01/05/1944 COPY TO: DC VENCES MD CT ABDOMEN/PELVIS [id number] 21:21:00 [place] [address] Patient Name: DC BARNHART MR #: [id number] : 1970 Age/Sex: 48/M Req #: [id number] [facility] Physician: Ordered by: VALE KENDRICK MD, MD Report #: [id number] Location: ER Room/Bed: Procedure: [id number] CT/CT ABDOMEN/PELVIS W Exam Date: 01/04/19 Exam Thierno e: 2009 REPORT STATUS: Signed EX AM: CT Abdomen and Pelvis WITH contrast INDICATION: ABD PAIN 201 90355 2009 COMPARISON: CT dated 12/07/2018 TECHNIQUE: Abdomen and pelvis were scanned utilizing a multidetector helical scanner from the lung base to t he pubic symphysis after administration of IV contrast. Coronal and sagittal r eformations were obtained. Dose modulation, iterative reconstruction, and/or w eight based adjustment of the mA/kV was utilized to reduce the radiation dose to as low as reasonably achievable. Routine protocol was performed. Scan was p erformed when during portal venous phase. IV CONTRAST: 100 mL of Is ovue-370 ORAL CONTRAST: Water COMPLICATIONS: None R ADIATION DOSE: Total DLP: 1330.39 mGy*cm Estimated effective dose: (DLP x 0.015 x size factor) mSv CTDIvol has been reviewed. It is below t he limits set by the Radiation Protocol Committee (RPC). FINDINGS: L DEBI and TUBES: None. LOWER THORAX: Unremarkable HEPATOBILIARY: No focal hepatic lesions. No biliary ductal dilation. GALLBLADDER: No radi o-opaque stones or sludge. No wall thickening. SPLEEN: No splenomegaly. Un changed exophytic splenic cyst. PANCREAS: No focal masses or ductal dilatat ion. Mild peripancreatic fat stranding. There is also trace air visualized in an chronic neck. ADRENALS: No adrenal nodules KIDNEYS/URETERS: Ki dneys enhance symmetrically. No hydronephrosis. No cystic or solid mass lesio ns. No stones. GI TRACT: No abnormal distention, wall thickening, or evide nce of bowel obstruction. Appendix is normal. PELVIC ORGANS/BLADDER : Unremarkable. LYMPH NODES: No lymphadenopathy. 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 PERITONEUM / RETROPERITONEUM: No free air or fluid. BONES: Degenerative changes of spine . Unchanged mild anterior wedging of T11 and T12 vertebral bodies. SOFT T ISSUES: Unremarkable. IMPRESSION: 1. Peripancreatic mild fa t stranding, representing acute pancreatitis. Trace air in the area of pancrea tic neck, raising the possibility of necrotizing pancreatitis. Signed by: Dr. Rehan Henderson MD on 01/04/2019 9:30 PM Dictated By: REHAN HENDERSON MD 29 Transcribed By: SOSA on 01/04/192129 COPY TO: VALE KENDRICK Creatine Kinase 2019-01-04 20:33:00* Test Item Value Reference Range Interpretation Comments Creatine Kinase (test code = 2157-6) 74 30-200 [facility] CenterCreatine Kinase YR1941-97-10 20:12:00* Test Item Value Reference Range Interpretation Comments Creatine Kinase MB (test code = 49077-9) 1.50 0-5.0 [facility] CenterTroponin T2733-65-03 20:12:00* Test Item Value Reference Range Interpretation Comments Troponin I (test code = LDF8060) 0.003 0-0.300 [facility] CenterIR MASLGDO9340-11-53 09:18:00 [facility] [address] [place] [address] Patient Name: DC BARNHART MR #: [id number] : 1970 Age/Sex: 48/M Req #: [id number] Adm Physician: KAREN MCGOWAN MD Ordered by: MONIKA BUTLER MD Report #: [id number] Location: MED/SURG2 Room/Bed: [facility] Procedure: 1797-0846 D X/IR CONSULT Exam Date: Exam Time: REPORT STATUS: Signed PROCEDURE: Enteric (nasoj ejunal) feeding tube placement Procedural Personnel Attending physician(s ): Nakul Landaverde MD Fellow physician(s): None Resident physician(s): None [facility] None Pre-procedure diagnosis: Hyponatremia, ab dominal pain Post-procedure diagnosis: Same Indication: Nutritional support Additional clinical history: None Complications: No immediate complicatio ns. IMPRESSION: Image guided placement of 12Fr nasojejunal feeding tub e. Plan: Tube position is beyond the ligament of Treitz. Tube is ready for immediate use. PROCEDURE SUMMARY: - Enteric (nasojejunal) feeding tube place ment under fluoroscopic guidance - Additional procedure(s): None PROCEDUR E DETAILS: Pre-procedure Consent: Informed consent for the procedure incl uding risks, benefits and alternatives was obtained and time-out was performed prior to the procedure. Preparation: The site was prepared and draped using m aximal sterile barrier technique including cutaneous antisepsis. Anesthes ia/sedation Level of anesthesia/sedation: No sedation Enteric tube placem ent Under fluoroscopic guidance, a 5Fr catheter and 0.035 inch wire were passe d through the nose, into the stomach, and then into the jejunum. The catheter was removed over the wire and a 12Fr feeding tube advanced over the wire to th e jejunum. Contrast injection confirms intraluminal position of the tip in the jejunum. The tube was secured and capped. Contrast Contrast agent: Gas trografin Contrast volume (mL): 5 Radiation Dose Fluoroscopy time (jessy edmundo): 6.1 Reference air kerma (mGy): 210 Additional Details Addition al description of procedure: None Equipment details: None Specimens removed: None Estimated blood loss (mL): Less than 10 Attestation Signer name: Nakul Landaverde MD I attest that I was present for the entire procedure. I reviewe d the stored images and agree with the report as written. Signed by: Dina Landaverde MD on 12/12/2018 9:23 AM Dictated By: NAKUL LANDAVERDE MD Electronicall y Signed By: NAKUL LANDAVERDE MD on 12/12/18922 Transcribed By: SOSA on 12/12/18922 COPY TO: MONIKA BUTLER MD INSERTION DUODEN/JEJUNOS TUBE 2018-12-12 09:18:00 [place] [address] Patient Name: DC BARNHART MR #: [id number] : 1970 Age/Sex: 48/M Req #: [id number] Adm Physician: KAREN MCGOWAN MD Ordered by: MONIKA BUTLER MD Report #: [id number] Location: MED/SURG2 Room/Bed: [facility] Procedure: I R/INSERTION DUODEN/JEJUNOS TUBE Exam Date: 12/11/18 Exam Time: 1720 REPORT STATUS: Sign ed PROCEDURE: Enteric (nasojejunal) feeding tube placement Procedural Pe rsonnel Attending physician(s): Nakul Landaverde MD Fellow physician(s): None R esident physician(s): None Advanced practice provider(s): None Pre-proced ure diagnosis: Hyponatremia, abdominal pain Post-procedure diagnosis: Same I ndication: Nutritional support Additional clinical history: None Complica tions: No immediate complications. IMPRESSION: Image guided placement of 12Fr nasojejunal feeding tube. Plan: Tube position is beyond the ligament of Treitz. Tube is ready for immediate use. PROCEDURE SUMMARY: - Enteric ( nasojejunal) feeding tube placement under fluoroscopic guidance - Additional p rocedure(s): None PROCEDURE DETAILS: Pre-procedure Consent: Informed consent for the procedure including risks, benefits and alternatives was obta ined and time-out was performed prior to the procedure. Preparation: The site was prepared and draped using maximal sterile barrier technique including cuta neous antisepsis. Anesthesia/sedation Level of anesthesia/sedation: No se dation Enteric tube placement Under fluoroscopic guidance, a 5Fr catheter and 0.035 inch wire were passed through the nose, into the stomach, and then into the jejunum. The catheter was removed over the wire and a 12Fr feeding tu be advanced over the wire to the jejunum. Contrast injection confirms intralum inal position of the tip in the jejunum. The tube was secured and capped. Contrast Contrast agent: Gastrografin Contrast volume (mL): 5 Radiation Dose Fluoroscopy time (minutes): 6.1 Reference air kerma (mGy): 210 Additional Details Additional description of procedure: None Equipment det ails: None Specimens removed: None Estimated blood loss (mL): Less than 10 Attestation Signer name: Nakul Landaverde MD I attest that I was present for the entire procedure. I reviewed the stored images and agree with the report a s written. Signed by: Nakul Landaverde MD on 12/12/2018 9:23 AM Dictated B y: NAKUL LANDAVERDE MD 2 Cazares scribed By: SOSA on 12/12/18922 COPY TO: MONIKA BUTLER MD Clumped Rdqangmkw7419-61-78 07:08:00* Test Item Value Reference Range Interpretation Comments Clumped Platelets (test code = 7796-6) NONE NONE [facility] CenterDifferential Total Cells Counted 2018-12-07 18:47:00* Test Item Value Reference Range Interpretation Comments Differential Total Cells Counted (test code = Differguero tial Total Cells Counted) 100 [facility] CenterNeutrophils % (Manual)2018-12-07 18:47:00 * Test Item Value Reference Range Interpretation Comments Neutrophils % (Manual) (test code = 71286-0) 56 40-74 [facility] CenterLymphocytes % (Manual)2018-12-07 18:47:00 * Test Item Value Reference Range Interpretation Comments Lymphocytes % (Manual) (test code = 737-7) 23 19-48 [facility] CenterMonocytes % (Manual)2018-12-07 18:47:00* Test Item Value Reference Range Interpretation Comments Monocytes % (Manual) (test code = 744-3) 5 3.4-9.0 [facility] CenterEosinophils % (Manual)2018-12-07 18:47:00 * Test Item Value Reference Range Interpretation Comments Eosinophils % (Manual) (test code = 714-6) 2 0-7 [facility] CenterReactive Jtridlwstpr0396-05-07 18:47:00* Test Item Value Reference Range Interpretation Comments Reactive Lymphocytes (test code = 92812-1) 14 [facility] CenterCT ABD[facility]EN/PELVIS Q5349-76-79 03:24:00 [facility] [address] [place] [address] Patient Name: DC BARNHART MR #: [id number] : 1970 Age/Sex: 48/M Req #: [id number] Adm Physician: Ordered by: RONI CAZARES DO Report #: [id number] Location: ER Room/Bed: Procedure: CT/C T ABDOMEN/PELVIS W Exam Date: Exam Time: REPORT STATUS: Signed EXAMINATION: CT of the abdomen and pelvis with contrast. TECHNIQUE: Spiral CT images of the abdomen and pelvis were performed from the lung bases to the lesser trochante rs after the intravenous administration of 100 cc of Isovue 370 and the oral a dministration of water. Coronal and sagittal reformatted images were obtained . COMPARISON: None. CLINICAL HISTORY:High blood pressure, vomiting an d abdominal pain, elevated blood sugar DISCUSSION: ABDOMEN/PELV IS: LOWER THORAX:Unremarkable. HEPATOBILIARY: No focal hepatic lesions . No intra or extrahepatic biliary ductal dilation. GALLBLADDER: No radi o-opaque stones or sludge. No wall thickening. SPLEEN: No splenomegaly. St able partially exophytic 2.1 x 1.7 cm fluid density lesion in the posterior as pect of the spleen (series 2, image 20), likely representing a cyst or lymphan gioma PANCREAS: No focal masses or ductal dilatation. ADRENALS: No ad renal nodules. KIDNEYS/URETERS: No hydronephrosis, stones, or solid mass le sions. PELVIC ORGANS/BLADDER: Bladder is grossly unremarkable. Prostate is unremarkable. PERITONEUM/RETROPERITONEUM: No free air or fluid. LYMPH NODES: No intra-abdominal, retroperitoneal, pelvic or inguinal lymphadenopat hy. VESSELS: The celiac trunk,superior and inferior mesenteric and bilatera l renal arteries are patent The portal, superior mesenteric and splenic vein s are patent. GI TRACT: No bowel dilation or evidence of obstruction. No pericolonic inflammatory changes. Appendix is identified and normal in caliber . BONES AND SOFT TISSUE: No aggressive lytic lesions. Degenerative disc dago nges in the thoracic and lumbosacral spine, predominantly at L5-S1. No soft t issue abnormalities. IMPRESSION: 1. No acute abdominopelvic ab normalities. Signed by: Dr. Omero Woodall M.D. on 12/07/2018 3:33 AM Dictated By: OMERO WOODALL MD 2 Transcribed By: SOSA on 12/07/18332 COPY TO: RONI NORWOOD DO CLLWVZ9982-19-86 04:09:00* Test Item Value Reference Range Interpretation Comments LIPASE (BEAKER) (test code = 749) 38 U/L 8-78 BNSTQOE4194-99-11 04:09:00* Test Item Value Reference Range Interpretation Comments AMYLASE (BEAKER) (test code = 349) 71 U/L 25-125 BASIC METABOLIC [id number] 04:09:00* Test Item Value Reference Range Interpretation Comments SODIUM (BEAKER) (test code = 381) 135 meq/L 136-145 L POTASSIUM (BEAKER) (test code = 379) 3.7 meq/L 3.5-5.1 CHLORIDE (BEAKER) (test code = 382) 106 meq/L 98-107 CO2 (BEAKER) (test code = 355) 19 meq/L 22-29 L BLOOD UREA NITROGEN (BEAKER) (test code = 354) 21 mg/dL 7-21 CREATININE (BEAKER) (test code = 358) 1.21 mg/dL 0.57-1.25 GLUCOSE RANDOM (BEAKER) (test code = 652) 249 mg/dL 70-105 H CALCIUM (BEAKER) (test code = 697) 8.9 mg/dL 8.4-10.2 EGFR (BEAKER) (test code = 1092) 64 mL/min/1.73 sq m ESTIMATED GFR IS NOT ACCURATE CREATININE CLEARANCE IN PREDICTING GLOMERULAR FILTRATION RATE. ESTIMATED GFR IS NOT APPLICABLE FOR DIALYSIS PATIENTS. HEPATIC FUNCTION [id number] 04:09:00* Test Item Value Reference Range Interpretation Comments TOTAL PROTEIN (BEAKER) (test code = 770) 6.8 gm/dL 6.0-8.3 ALBUMIN (BEAKER) (test code = 1145) 3.7 g/dL 3.5-5.0 BILIRUBIN TOTAL (BEAKER) (test code = 377) 0.4 mg/dL 0.2-1.2 BILIRUBIN DIRECT (BEAKER) (test code = 706) 0.2 mg/dL 0.1-0.5 ALKALINE PHOSPHATASE (BEAKER) (test code = 346) 78 U/L 40-150 AST (SGOT) (BEAKER) (test code = 353) 14 U/L 5-34 ALT (SGPT) (BEAKER) (test code = 347) 21 U/L 6-55 CBC W/PLT COUNT & AUTO [id number] 03:13:00* Test Item Value Reference Range Interpretation Comments WHITE BLOOD CELL COUNT (BEAKER) (test code = 775) 3.8 K/ L 3.5- 10.5 RED BLOOD CELL COUNT (BEAKER) (test code = 761) 5.26 M/ L 4.63-6 .08 HEMOGLOBIN (BEAKER) (test code = 410) 16.2 GM/DL 13.7-17.5 HEMATOCRIT (BEAKER) (test code = 411) 48.0 % 40.1-51.0 MEAN CORPUSCULAR VOLUME (BEAKER) (test code = 753) 91.3 fL 79. 0-92.2 MEAN CORPUSCULAR HEMOGLOBIN (BEAKER) (test code = 751) 30.8 pg 25.7-32.2 MEAN CORPUSCULAR HEMOGLOBIN CONC (BEAKER) (test code = 752) 33.8 GM/DL 32.3-36.5 RED CELL DISTRIBUTION WIDTH (BEAKER) (test code = 412) 13.7 % 11.6-14.4 PLATELET COUNT (BEAKER) (test code = 756) 95 K/CU MM 150-450 L MEAN PLATELET VOLUME (BEAKER) (test code = 754) 11.0 fL 9.4-12 .4 NUCLEATED RED BLOOD CELLS (BEAKER) (test code = 413) 0 /100 WBC 0 -0 NEUTROPHILS RELATIVE PERCENT (BEAKER) (test code = 429) 49 % LYMPHOCYTES RELATIVE PERCENT (BEAKER) (test code = 430) 36 % MONOCYTES RELATIVE PERCENT (BEAKER) (test code = 431) 11 % EOSINOPHILS RELATIVE PERCENT (BEAKER) (test code = 432) 3 % BASOPHILS RELATIVE PERCENT (BEAKER) (test code = 437) 0 % NEUTROPHILS ABSOLUTE COUNT (BEAKER) (test code = 670) 1.87 K/ L 1.78-5.38 LYMPHOCYTES ABSOLUTE COUNT (BEAKER) (test code = 414) 1.39 K/ L 1.32-3.57 MONOCYTES ABSOLUTE COUNT (BEAKER) (test code = 415) 0.41 K/ L 0. 30-0.82 EOSINOPHILS ABSOLUTE COUNT (BEAKER) (test code = 416) 0.13 K/ L 0.04-0.54 BASOPHILS ABSOLUTE COUNT (BEAKER) (test code = 417) 0.01 K/ L 0. 01-0.08 IMMATURE GRANULOCYTES-RELATIVE PERCENT (BEAKER) (test code = 2801) 1 % 0-1 [id number] 17:09:00* Test Item Value Reference Range Interpretation Comments LIPASE (BEAKER) (test code = 749) 25 U/L 8-78 TROPONIN [id number] 16:30:00* Test Item Value Reference Range Interpretation Comments TROPONIN I (BEAKER) (test code = 397) 0.03 ng/mL 0.00-0.03 Troponin I (TnI) levels [...] acidosis, acute neurological disease, and per sistent tachyarrhythmia.[id number] 16:23:00* Test Item Value Reference Range Interpretation Comments MAGNESIUM (BEAKER) (test code = 627) 2.2 mg/dL 1.6-2.6 Specimen slightly hemolyzed COMPREHENSIVE METABOLIC [id number] 16:23:00* Test Item Value Reference Range Interpretation Comments TOTAL PROTEIN (BEAKER) (test code = 770) 7.6 gm/dL 6.0-8.3 Specimen slightly hemolyzed ALBUMIN (BEAKER) (test code = 1145) 4.0 g/dL 3.5-5.0 Specimen slightly hemolyzed ALKALINE PHOSPHATASE (BEAKER) (test code = 346) 76 U/L 40-150 BILIRUBIN TOTAL (BEAKER) (test code = 377) 0.6 mg/dL 0.2-1.2 Specimen slightly hemolyzed SODIUM (BEAKER) (test code = 381) 139 meq/L 136-145 POTASSIUM (BEAKER) (test code = 379) 3.5 meq/L 3.5-5.1 Specimen slightly hemolyzed CHLORIDE (BEAKER) (test code = 382) 105 meq/L 98-107 CO2 (BEAKER) (test code = 355) 24 meq/L 22-29 BLOOD UREA NITROGEN (BEAKER) (test code = 354) 26 mg/dL 7-21 H CREATININE (BEAKER) (test code = 358) 1.57 mg/dL 0.57-1.25 H Specimen slightly hemolyzed GLUCOSE RANDOM (BEAKER) (test code = 652) 167 mg/dL 70-105 H CALCIUM (BEAKER) (test code = 697) 9.7 mg/dL 8.4-10.2 AST (SGOT) (BEAKER) (test code = 353) 27 U/L 5-34 Specimen slightly hemolyzed ALT (SGPT) (BEAKER) (test code = 347) 32 U/L 6-55 Specimen slightly hemolyzed EGFR (BEAKER) (test code = 1092) 47 mL/min/1.73 sq m ESTIMATED GFR IS NOT ACCURATE CREATININE CLEARANCE IN PREDICTING GLOMERULAR FILTRATION RATE. ESTIMATED GFR IS NOT APPLICABLE FOR DIALYSIS PATIENTS. Specimen slightly lipemicPT/[id number] 16:12:00* Test Item Value Reference Range Interpretation Comments PROTIME (BEAKER) (test code = 759) 14.5 seconds 11.9-14.2 H INR (BEAKER) (test code = 370) 1.2 <=5.9 PARTIAL THROMBOPLASTIN TIME (BEAKER) (test code = 760) 26.2 seconds 22.5-36.0 Effective 08/16/2018: PT Reference Range ChangeNew: 11.9-14.2 Previous: 11.7-14. 7RECOMMENDED COUMADIN/WARFARIN INR THERAPY RANGESSTANDARD DOSE: 2.0-3.0 Include s: PROPHYLAXIS for venous thrombosis, systemic embolization; TREATMENT for venou s thrombosis and/or pulmonary embolus.HIGH RISK: Target INR is 2.5-3.5 for patie nts wiht mechanical heart valves.CBC W/PLT COUNT & AUTO [id number] 16:04:00* Test Item Value Reference Range Interpretation Comments WHITE BLOOD CELL COUNT (BEAKER) (test code = 775) 5.7 K/ L 3.5- 10.5 RED BLOOD CELL COUNT (BEAKER) (test code = 761) 5.53 M/ L 4.63-6 .08 HEMOGLOBIN (BEAKER) (test code = 410) 16.8 GM/DL 13.7-17.5 HEMATOCRIT (BEAKER) (test code = 411) 48.7 % 40.1-51.0 MEAN CORPUSCULAR VOLUME (BEAKER) (test code = 753) 88.1 fL 79. 0-92.2 MEAN CORPUSCULAR HEMOGLOBIN (BEAKER) (test code = 751) 30.4 pg 25.7-32.2 MEAN CORPUSCULAR HEMOGLOBIN CONC (BEAKER) (test code = 752) 34.5 GM/DL 32.3-36.5 RED CELL DISTRIBUTION WIDTH (BEAKER) (test code = 412) 14.2 % 11.6-14.4 PLATELET COUNT (BEAKER) (test code = 756) 124 K/CU MM 150-450 L MEAN PLATELET VOLUME (BEAKER) (test code = 754) 11.8 fL 9.4-12 .4 NUCLEATED RED BLOOD CELLS (BEAKER) (test code = 413) 0 /100 WBC 0 -0 NEUTROPHILS RELATIVE PERCENT (BEAKER) (test code = 429) 65 % LYMPHOCYTES RELATIVE PERCENT (BEAKER) (test code = 430) 23 % MONOCYTES RELATIVE PERCENT (BEAKER) (test code = 431) 10 % EOSINOPHILS RELATIVE PERCENT (BEAKER) (test code = 432) 2 % BASOPHILS RELATIVE PERCENT (BEAKER) (test code = 437) 1 % NEUTROPHILS ABSOLUTE COUNT (BEAKER) (test code = 670) 3.71 K/ L 1.78-5.38 LYMPHOCYTES ABSOLUTE COUNT (BEAKER) (test code = 414) 1.29 K/ L 1.32-3.57 L MONOCYTES ABSOLUTE COUNT (BEAKER) (test code = 415) 0.55 K/ L 0. 30-0.82 EOSINOPHILS ABSOLUTE COUNT (BEAKER) (test code = 416) 0.10 K/ L 0.04-0.54 BASOPHILS ABSOLUTE COUNT (BEAKER) (test code = 417) 0.03 K/ L 0. 01-0.08 IMMATURE GRANULOCYTES-RELATIVE PERCENT (BEAKER) (test code = 2801) 1 % 0-1 RAD, CHEST, 1 VIEW, NON [id number] 16:00:00Reason for exam:->chest painShould this be performed at the bedside?->YesFINAL REPORT Chest, AP view, two images. History: Chest pain. Comparison: 02/21/2018. Discussion: The cardiomediastinal silhouette and pulmonary vasculature are within normal limits. The lungs are clear without evidence of consolidation or effusion. There are no acute osseous abnormalities. The soft tissues are unremarkable. IMPRESSION: No acute cardiopulmonary abnormality. Signed: Maryann Lawton MDReport Verified Date/Time: 08/30/2018 16:00:00 Re ading Location: [facility] Reading Room D [id number] 12:01:00* Test Item Value Reference Range Interpretation Comments CULTURE (BEAKER) (test code = 1095) No growth in 5 days BLOOD [id number] 12:01:00* Test Item Value Reference Range Interpretation Comments CULTURE (BEAKER) (test code = 1095) No growth in 5 days HEPARIN [id number] 13:27:00* Test Item Value Reference Range Interpretation Comments HEPARIN ANTIBODY (BEAKER) (test code = 646) Negative Negative HEPARIN ANTIBODY OD (BEAKER) (test code = 2659) 0.078 <0.400 4T TOTAL SCORE (BEAKER) (test code = 2661) 2 Probability of HIT based on scoring system: 6-8 = High probability; 4-5 = inter mediate probability; 0-3 = low probabilityCBC W/PLT COUNT & AUTO DIFFERENTIAL 2018-06-04 13:49:00* Test Item Value Reference Range Interpretation Comments WHITE BLOOD CELL COUNT (BEAKER) (test code = 775) 3.7 K/ L 3.5- 10.5 RED BLOOD CELL COUNT (BEAKER) (test code = 761) 4.76 M/ L 4.63-6 .08 HEMOGLOBIN (BEAKER) (test code = 410) 14.2 GM/DL 13.7-17.5 HEMATOCRIT (BEAKER) (test code = 411) 43.4 % 40.1-51.0 MEAN CORPUSCULAR VOLUME (BEAKER) (test code = 753) 91.2 fL 79. 0-92.2 MEAN CORPUSCULAR HEMOGLOBIN (BEAKER) (test code = 751) 29.8 pg 25.7-32.2 MEAN CORPUSCULAR HEMOGLOBIN CONC (BEAKER) (test code = 752) 32.7 GM/DL 32.3-36.5 RED CELL DISTRIBUTION WIDTH (BEAKER) (test code = 412) 15.3 % 11.6-14.4 H PLATELET COUNT (BEAKER) (test code = 756) 93 K/CU MM 150-450 L MEAN PLATELET VOLUME (BEAKER) (test code = 754) 11.5 fL 9.4-12 .4 NUCLEATED RED BLOOD CELLS (BEAKER) (test code = 413) 0 /100 WBC 0 -0 NEUTROPHILS RELATIVE PERCENT (BEAKER) (test code = 429) 51 % LYMPHOCYTES RELATIVE PERCENT (BEAKER) (test code = 430) 30 % MONOCYTES RELATIVE PERCENT (BEAKER) (test code = 431) 15 % EOSINOPHILS RELATIVE PERCENT (BEAKER) (test code = 432) 4 % BASOPHILS RELATIVE PERCENT (BEAKER) (test code = 437) 1 % NEUTROPHILS ABSOLUTE COUNT (BEAKER) (test code = 670) 1.88 K/ L 1.78-5.38 LYMPHOCYTES ABSOLUTE COUNT (BEAKER) (test code = 414) 1.11 K/ L 1.32-3.57 L MONOCYTES ABSOLUTE COUNT (BEAKER) (test code = 415) 0.54 K/ L 0. 30-0.82 EOSINOPHILS ABSOLUTE COUNT (BEAKER) (test code = 416) 0.14 K/ L 0.04-0.54 BASOPHILS ABSOLUTE COUNT (BEAKER) (test code = 417) 0.02 K/ L 0. 01-0.08 IMMATURE GRANULOCYTES-RELATIVE PERCENT (BEAKER) (test code = 2801) 1 % 0-1 POCT-GLUCOSE [id number] 12:45:00* Test Item Value Reference Range Interpretation Comments POC-GLUCOSE METER (BEAKER) (test code = 1538) 101 mg/dL 70-110 TESTED AT [facility] [address] [facility] [address] POCT-GLUCOSE [id number] 09:16:00* Test Item Value Reference Range Interpretation Comments POC-GLUCOSE METER (BEAKER) (test code = 1538) 106 mg/dL 70-110 TESTED AT [facility] [address] [facility] [address] BASIC METABOLIC [id number] 06:49:00* Test Item Value Reference Range Interpretation Comments SODIUM (BEAKER) (test code = 381) 137 meq/L 136-145 POTASSIUM (BEAKER) (test code = 379) 3.7 meq/L 3.5-5.1 CHLORIDE (BEAKER) (test code = 382) 103 meq/L 98-107 CO2 (BEAKER) (test code = 355) 25 meq/L 22-29 BLOOD UREA NITROGEN (BEAKER) (test code = 354) 16 mg/dL 7-21 CREATININE (BEAKER) (test code = 358) 1.16 mg/dL 0.57-1.25 GLUCOSE RANDOM (BEAKER) (test code = 652) 134 mg/dL 70-105 H CALCIUM (BEAKER) (test code = 697) 8.7 mg/dL 8.4-10.2 EGFR (BEAKER) (test code = 1092) 67 mL/min/1.73 sq m ESTIMATED GFR IS NOT ACCURATE CREATININE CLEARANCE IN PREDICTING GLOMERULAR FILTRATION RATE. ESTIMATED GFR IS NOT APPLICABLE FOR DIALYSIS PATIENTS. POCT-GLUCOSE [id number] 21:07:00* Test Item Value Reference Range Interpretation Comments POC-GLUCOSE METER (EDGAR) (test code = 1538) 174 mg/dL 70-110 H TESTED AT [address] [address] POCT-GLUCOSE [id number] 18:18:00* Test Item Value Reference Range Interpretation Comments POC-GLUCOSE METER (EDGAR) (test code = 1538) 167 mg/dL 70-110 H TESTED AT [address] [address] POCT-GLUCOSE [id number] 12:34:00* Test Item Value Reference Range Interpretation Comments POC-GLUCOSE METER (EDGAR) (test code = 1538) 129 mg/dL 70-110 H TESTED AT [address] [address] MR, EXTREMITY, LOWER, WITHOUT CONTRAST, [id number] 08:29:00Reason for exam:- >traumatic injuryFINAL REPORT Indication: [...] No fluid collection or hematoma. Signed: Chuckie Hernadez MDReport Verified Date/Time: 06/03/2018 08:29:15 Reading Location: [facility] C013X [facility] Reading Room C METABOLIC [id number] 07:51:00* Test Item Value Reference Range Interpretation Comments SODIUM (BEAKER) (test code = 381) 138 meq/L 136-145 POTASSIUM (BEAKER) (test code = 379) 4.5 meq/L 3.5-5.1 Specimen slightly hemolyzed CHLORIDE (BEAKER) (test code = 382) 104 meq/L 98-107 CO2 (BEAKER) (test code = 355) 26 meq/L 22-29 BLOOD UREA NITROGEN (BEAKER) (test code = 354) 20 mg/dL 7-21 CREATININE (BEAKER) (test code = 358) 1.39 mg/dL 0.57-1.25 H Specimen slightly hemolyzed GLUCOSE RANDOM (BEAKER) (test code = 652) 124 mg/dL 70-105 H CALCIUM (BEAKER) (test code = 697) 9.3 mg/dL 8.4-10.2 EGFR (BEAKER) (test code = 1092) 55 mL/min/1.73 sq m ESTIMATED GFR IS NOT ACCURATE CREATININE CLEARANCE IN PREDICTING GLOMERULAR FILTRATION RATE. ESTIMATED GFR IS NOT APPLICABLE FOR DIALYSIS PATIENTS. POCT-GLUCOSE [id number] 21:19:00* Test Item Value Reference Range Interpretation Comments POC-GLUCOSE METER (BEAKER) (test code = 1538) 120 mg/dL 70-110 H TESTED AT [facility] [address] [facility] [address] POCT-GLUCOSE [id number] 18:25:00* Test Item Value Reference Range Interpretation Comments POC-GLUCOSE METER (BEAKER) (test code = 1538) 180 mg/dL 70-110 H TESTED AT [place] [id number] [facility] [address] URINALYSIS W/ REFLEX URINE [id number] 15:52:00* Test Item Value Reference Range Interpretation Comments COLOR (BEAKER) (test code = 470) Light Yellow CLARITY (BEAKER) (test code = 469) Clear SPECIFIC GRAVITY UA (BEAKER) (test code = 468) 1.019 1.001-1 .035 PH UA (BEAKER) (test code = 467) 5.5 5.0-8.0 PROTEIN UA (BEAKER) (test code = 464) 50 mg/dL Negative A GLUCOSE UA (BEAKER) (test code = 365) >1000 mg/dL Negative A KETONES UA (BEAKER) (test code = 371) Negative Negative BILIRUBIN UA (BEAKER) (test code = 462) Negative Negative BLOOD UA (BEAKER) (test code = 461) Negative Negative NITRITE UA (BEAKER) (test code = 465) Negative Negative LEUKOCYTE ESTERASE UA (BEAKER) (test code = 466) Negative Negat adán UROBILINOGEN UA (BEAKER) (test code = 463) 0.2 mg/dL 0.2-1.0 RBC UA (BEAKER) (test code = 519) 0 /HPF WBC UA (BEAKER) (test code = 520) 1 /HPF SOURCE(BEAKER) (test code = 2795) POCT-GLUCOSE [id number] 13:09:00* Test Item Value Reference Range Interpretation Comments POC-GLUCOSE METER (BEAKER) (test code = 1538) 131 mg/dL 70-110 H TESTED AT [facility] [address] [facility] [address] BASIC METABOLIC [id number] 04:53:00* Test Item Value Reference Range Interpretation Comments SODIUM (BEAKER) (test code = 381) 139 meq/L 136-145 POTASSIUM (BEAKER) (test code = 379) 3.4 meq/L 3.5-5.1 L Specimen slightly hemolyzed CHLORIDE (BEAKER) (test code = 382) 103 meq/L 98-107 CO2 (BEAKER) (test code = 355) 22 meq/L 22-29 BLOOD UREA NITROGEN (BEAKER) (test code = 354) 31 mg/dL 7-21 H CREATININE (BEAKER) (test code = 358) 1.49 mg/dL 0.57-1.25 H Specimen slightly hemolyzed GLUCOSE RANDOM (BEAKER) (test code = 652) 111 mg/dL 70-105 H CALCIUM (BEAKER) (test code = 697) 9.6 mg/dL 8.4-10.2 EGFR (BEAKER) (test code = 1092) 51 mL/min/1.73 sq m ESTIMATED GFR IS NOT ACCURATE CREATININE CLEARANCE IN PREDICTING GLOMERULAR FILTRATION RATE. ESTIMATED GFR IS NOT APPLICABLE FOR DIALYSIS PATIENTS. CREATINE KINASE (CK)2018-06-02 04:53:00* Test Item Value Reference Range Interpretation Comments CREATINE KINASE TOTAL (BEAKER) (test code = 380) 302 U/L 29-20 0 H CBC W/PLT COUNT & AUTO [id number] 04:31:00* Test Item Value Reference Range Interpretation Comments WHITE BLOOD CELL COUNT (BEAKER) (test code = 775) 6.2 K/ L 3.5- 10.5 RED BLOOD CELL COUNT (BEAKER) (test code = 761) 5.36 M/ L 4.63-6 .08 HEMOGLOBIN (BEAKER) (test code = 410) 16.0 GM/DL 13.7-17.5 HEMATOCRIT (BEAKER) (test code = 411) 48.4 % 40.1-51.0 MEAN CORPUSCULAR VOLUME (BEAKER) (test code = 753) 90.3 fL 79. 0-92.2 MEAN CORPUSCULAR HEMOGLOBIN (BEAKER) (test code = 751) 29.9 pg 25.7-32.2 MEAN CORPUSCULAR HEMOGLOBIN CONC (BEAKER) (test code = 752) 33.1 GM/DL 32.3-36.5 RED CELL DISTRIBUTION WIDTH (BEAKER) (test code = 412) 15.1 % 11.6-14.4 H PLATELET COUNT (BEAKER) (test code = 756) 125 K/CU MM 150-450 L MEAN PLATELET VOLUME (BEAKER) (test code = 754) 11.4 fL 9.4-12 .4 NUCLEATED RED BLOOD CELLS (BEAKER) (test code = 413) 0 /100 WBC 0 -0 NEUTROPHILS RELATIVE PERCENT (BEAKER) (test code = 429) 59 % LYMPHOCYTES RELATIVE PERCENT (BEAKER) (test code = 430) 27 % MONOCYTES RELATIVE PERCENT (BEAKER) (test code = 431) 11 % EOSINOPHILS RELATIVE PERCENT (BEAKER) (test code = 432) 3 % BASOPHILS RELATIVE PERCENT (BEAKER) (test code = 437) 1 % NEUTROPHILS ABSOLUTE COUNT (BEAKER) (test code = 670) 3.64 K/ L 1.78-5.38 LYMPHOCYTES ABSOLUTE COUNT (BEAKER) (test code = 414) 1.64 K/ L 1.32-3.57 MONOCYTES ABSOLUTE COUNT (BEAKER) (test code = 415) 0.67 K/ L 0. 30-0.82 EOSINOPHILS ABSOLUTE COUNT (BEAKER) (test code = 416) 0.17 K/ L 0.04-0.54 BASOPHILS ABSOLUTE COUNT (BEAKER) (test code = 417) 0.03 K/ L 0. 01-0.08 IMMATURE GRANULOCYTES-RELATIVE PERCENT (BEAKER) (test code = 2801) 1 % 0-1 RAD, LEG, [id number] 01:32:00Reason for exam:->LEG PAINReason for exam:-> FALLFINAL [...] radiopaque foreign body. Signed: Rosa Maria Chavira Verified Date/Time: 06/02/2018 01:32:15 Reading Location: [address] Transitional Reading Room , [id number] 17:05:00FINAL REPORT TECHNIQUE: CT of the abdomen [...] MDReport Verified Date/Time: 03/22/2018 17:05:44 Reading Location: [facility] C013Y CT Body Reading Room ONIN [id number] 15:53:00* Test Item Value Reference Range Interpretation Comments TROPONIN I (BEAKER) (test code = 397) 0.01 ng/mL 0.00-0.03 Troponin I (TnI) levels [...] acidosis, acute neurological disease, and per sistent tachyarrhythmia.[id number] 15:47:00* Test Item Value Reference Range Interpretation Comments LIPASE (BEAKER) (test code = 749) 20 U/L 8-78 BASIC METABOLIC [id number] 15:47:00* Test Item Value Reference Range Interpretation Comments SODIUM (BEAKER) (test code = 381) 137 meq/L 136-145 POTASSIUM (BEAKER) (test code = 379) 3.4 meq/L 3.5-5.1 L CHLORIDE (BEAKER) (test code = 382) 107 meq/L 98-107 CO2 (BEAKER) (test code = 355) 22 meq/L 22-29 BLOOD UREA NITROGEN (BEAKER) (test code = 354) 14 mg/dL 7-21 CREATININE (BEAKER) (test code = 358) 0.97 mg/dL 0.57-1.25 GLUCOSE RANDOM (BEAKER) (test code = 652) 86 mg/dL 70-105 CALCIUM (BEAKER) (test code = 697) 9.0 mg/dL 8.4-10.2 EGFR (BEAKER) (test code = 1092) 83 mL/min/1.73 sq m ESTIMATED GFR IS NOT ACCURATE CREATININE CLEARANCE IN PREDICTING GLOMERULAR FILTRATION RATE. ESTIMATED GFR IS NOT APPLICABLE FOR DIALYSIS PATIENTS. HEPATIC FUNCTION [id number] 15:47:00* Test Item Value Reference Range Interpretation Comments TOTAL PROTEIN (BEAKER) (test code = 770) 7.0 gm/dL 6.0-8.3 ALBUMIN (BEAKER) (test code = 1145) 3.8 g/dL 3.5-5.0 BILIRUBIN TOTAL (BEAKER) (test code = 377) 0.6 mg/dL 0.2-1.2 BILIRUBIN DIRECT (BEAKER) (test code = 706) 0.2 mg/dL 0.1-0.5 ALKALINE PHOSPHATASE (BEAKER) (test code = 346) 57 U/L 40-150 AST (SGOT) (BEAKER) (test code = 353) 21 U/L 5-34 ALT (SGPT) (BEAKER) (test code = 347) 26 U/L 6-55 CBC W/PLT COUNT & AUTO [id number] 15:30:00* Test Item Value Reference Range Interpretation Comments WHITE BLOOD CELL COUNT (BEAKER) (test code = 775) 5.9 K/ L 3.5- 10.5 RED BLOOD CELL COUNT (BEAKER) (test code = 761) 5.63 M/ L 4.63-6 .08 HEMOGLOBIN (BEAKER) (test code = 410) 16.9 GM/DL 13.7-17.5 HEMATOCRIT (BEAKER) (test code = 411) 49.8 % 40.1-51.0 MEAN CORPUSCULAR VOLUME (BEAKER) (test code = 753) 88.5 fL 79. 0-92.2 MEAN CORPUSCULAR HEMOGLOBIN (BEAKER) (test code = 751) 30.0 pg 25.7-32.2 MEAN CORPUSCULAR HEMOGLOBIN CONC (BEAKER) (test code = 752) 33.9 GM/DL 32.3-36.5 RED CELL DISTRIBUTION WIDTH (BEAKER) (test code = 412) 13.3 % 11.6-14.4 PLATELET COUNT (BEAKER) (test code = 756) 123 K/CU MM 150-450 L MEAN PLATELET VOLUME (BEAKER) (test code = 754) 11.5 fL 9.4-12 .4 NUCLEATED RED BLOOD CELLS (BEAKER) (test code = 413) 0 /100 WBC 0 -0 NEUTROPHILS RELATIVE PERCENT (BEAKER) (test code = 429) 67 % LYMPHOCYTES RELATIVE PERCENT (BEAKER) (test code = 430) 22 % MONOCYTES RELATIVE PERCENT (BEAKER) (test code = 431) 8 % EOSINOPHILS RELATIVE PERCENT (BEAKER) (test code = 432) 2 % BASOPHILS RELATIVE PERCENT (BEAKER) (test code = 437) 0 % NEUTROPHILS ABSOLUTE COUNT (BEAKER) (test code = 670) 3.96 K/ L 1.78-5.38 LYMPHOCYTES ABSOLUTE COUNT (BEAKER) (test code = 414) 1.31 K/ L 1.32-3.57 L MONOCYTES ABSOLUTE COUNT (BEAKER) (test code = 415) 0.45 K/ L 0. 30-0.82 EOSINOPHILS ABSOLUTE COUNT (BEAKER) (test code = 416) 0.12 K/ L 0.04-0.54 BASOPHILS ABSOLUTE COUNT (BEAKER) (test code = 417) 0.02 K/ L 0. 01-0.08 IMMATURE GRANULOCYTES-RELATIVE PERCENT (BEAKER) (test code = 2801) 0 % 0-1 OVA AND PARASITE [id number] 07:53:00* Test Item Value Reference Range Interpretation Comments CONCENTRATE SMEAR - O\\T\\P (BEAKER) (test code = 247) No ova or parasites seen No ova or parasites seen TRICHROME SMEAR - O\\T\\P (BEAKER) (test code = 248) No ova or parasites seen No ova or parasites seen BLOOD [id number] 10:00:00* Test Item Value Reference Range Interpretation Comments CULTURE (BEAKER) (test code = 1095) No growth in 5 days BLOOD [id number] 05:01:00* Test Item Value Reference Range Interpretation Comments CULTURE (BEAKER) (test code = 1095) No growth in 5 days BLOOD [id number] 23:01:00* Test Item Value Reference Range Interpretation Comments CULTURE (BEAKER) (test code = 1095) No growth in 5 days STOOL CULTURE + SHIGA [id number] 17:27:00* Test Item Value Reference Range Interpretation Comments CULTURE (BEAKER) (test code = 1095) No Salmonella, Swati gella or Campylobacter isolated Unable to test for Shiga Toxin 1 due to insufficient growth of specimen.Unable t o test for Shiga Toxin 2 due to insufficient growth of specimen.[facility].Insufficient growth in GN broth02/25/20183:01 Sabiha linton LawsSTOOL PATH [id number] 19:19:00* Test Item Value Reference Range Interpretation Comments PATHOGEN EXAM CHARGED (EDGAR) (test code = 2381) Done POCT-GLUCOSE [id number] 09:53:00* Test Item Value Reference Range Interpretation Comments POC-GLUCOSE METER ([facility]Get[facility]) (test code = 1538) 138 mg/dL 70-110 H TESTED AT [address] [address] POCT-GLUCOSE [id number] 21:06:00* Test Item Value Reference Range Interpretation Comments POC-GLUCOSE METER ([facility]) (test code = 1538) 155 mg/dL 70-110 H TESTED AT [address] [address] POCT-GLUCOSE [id number] 18:03:00* Test Item Value Reference Range Interpretation Comments POC-GLUCOSE METER (BEAKER) (test code = 1538) 158 mg/dL 70-110 H TESTED AT [address] [address] C. DIFFICILE GDH [id number] 16:26:00* Test Item Value Reference Range Interpretation Comments CDT TOXIN (test code = 9017215581) Negative Negative CDT GDH ANTIGEN (test code = 2284634437) Negative Negative No indication of Clostridium difficile infection and no colonization. Discontinue enteric isolation and therapy. Testing performed by [employer] Rapid Cassette Assay. For GDH, published sensitivity of the assay is 98.7% compared to cytotoxicity testing. For Toxin AB, published sensitivity is 87.8% and specificity 99.4% compared to cytotoxicity testing.Ve rification of kit performance was done by the [facility] Microbiology Lab prior to cl inical use.POCT-GLUCOSE [id number] 13:00:00* Test Item Value Reference Range Interpretation Comments POC-GLUCOSE METER (BEAKER) (test code = 1538) 197 mg/dL 70-110 H TESTED AT [address] [address] POCT-GLUCOSE [id number] 09:45:00* Test Item Value Reference Range Interpretation Comments POC-GLUCOSE METER (BEAKER) (test code = 1538) 298 mg/dL 70-110 H TESTED AT [place] [id number] [facility] [address] POCT-GLUCOSE [id number] 19:26:00* Test Item Value Reference Range Interpretation Comments POC-GLUCOSE METER (BEAKER) (test code = 1538) 176 mg/dL 70-110 H TESTED AT [address] [address] POCT-GLUCOSE [id number] 12:06:00* Test Item Value Reference Range Interpretation Comments POC-GLUCOSE METER (BEAKER) (test code = 1538) 183 mg/dL 70-110 H TESTED AT [address] [address] POCT-GLUCOSE [id number] 08:02:00* Test Item Value Reference Range Interpretation Comments POC-GLUCOSE METER (BEAKER) (test code = 1538) 202 mg/dL 70-110 H TESTED AT [address] [address] T4, [id number] 07:51:00* Test Item Value Reference Range Interpretation Comments FREE T4 (BEAKER) (test code = 655) 0.78 ng/dL 0.70-1.48 TSH/FREE T4 IF [id number] 07:02:00* Test Item Value Reference Range Interpretation Comments THYROID STIMULATING HORMONE (BEAKER) (test code = 772) 6.66 uIU/mL 0.35-4.94 H [id number] 06:59:00* Test Item Value Reference Range Interpretation Comments MAGNESIUM (BEAKER) (test code = 627) 2.1 mg/dL 1.6-2.6 BASIC METABOLIC [id number] 06:59:00* Test Item Value Reference Range Interpretation Comments SODIUM (BEAKER) (test code = 381) 136 meq/L 136-145 POTASSIUM (BEAKER) (test code = 379) 4.0 meq/L 3.5-5.1 CHLORIDE (BEAKER) (test code = 382) 106 meq/L 98-107 CO2 (BEAKER) (test code = 355) 24 meq/L 22-29 BLOOD UREA NITROGEN (BEAKER) (test code = 354) 13 mg/dL 7-21 CREATININE (BEAKER) (test code = 358) 0.96 mg/dL 0.57-1.25 GLUCOSE RANDOM (BEAKER) (test code = 652) 202 mg/dL 70-105 H CALCIUM (BEAKER) (test code = 697) 8.6 mg/dL 8.4-10.2 EGFR (BEAKER) (test code = 1092) 84 mL/min/1.73 sq m ESTIMATED GFR IS NOT ACCURATE CREATININE CLEARANCE IN PREDICTING GLOMERULAR FILTRATION RATE. ESTIMATED GFR IS NOT APPLICABLE FOR DIALYSIS PATIENTS. POCT-GLUCOSE [id number] 23:38:00* Test Item Value Reference Range Interpretation Comments POC-GLUCOSE METER (BEAKER) (test code = 1538) 205 mg/dL 70-110 H TESTED AT [place] [id number] POCT-GLUCOSE [id number] 17:57:00* Test Item Value Reference Range Interpretation Comments POC-GLUCOSE METER (BEAKER) (test code = 1538) 185 mg/dL 70-110 H TESTED AT [address] [address] C-REACTIVE [id number] 16:30:00* Test Item Value Reference Range Interpretation Comments C-REACTIVE PROTEIN (BEAKER) (test code = 676) 0.47 mg/dL 0.00-0.5 0 POCT-GLUCOSE [id number] 12:23:00* Test Item Value Reference Range Interpretation Comments POC-GLUCOSE METER (BEAKER) (test code = 1538) 167 mg/dL 70-110 H TESTED AT [address] [address] HEPATOBILIARY [id number] 11:28:00FINAL REPORT PROCEDURE: HEPATOBILIARY SCAN CPT CODE: 05287 INDICATION: Right upper quadrant pain cholecystitis suspected, [...] small bowel. IMPRESSION: Normal hepatobiliary scan. Signed: Colunga, Archie MDReport Verified Date/Thierno e: 02/22/2018 11:28:21 Reading Location: [address] [address] Reading [place] m ALYSIS W/ [id number] 10:47:00* Test Item Value Reference Range Interpretation Comments COLOR (BEAKER) (test code = 470) Yellow CLARITY (BEAKER) (test code = 469) Clear SPECIFIC GRAVITY UA (BEAKER) (test code = 468) 1.020 1.001-1 .035 PH UA (BEAKER) (test code = 467) 6.0 5.0-8.0 PROTEIN UA (BEAKER) (test code = 464) 300 mg/dL Negative A GLUCOSE UA (BEAKER) (test code = 365) 1000 mg/dL Negative A KETONES UA (BEAKER) (test code = 371) Negative Negative BILIRUBIN UA (BEAKER) (test code = 462) Negative Negative BLOOD UA (BEAKER) (test code = 461) Negative Negative NITRITE UA (BEAKER) (test code = 465) Negative Negative LEUKOCYTE ESTERASE UA (BEAKER) (test code = 466) Negative Negat adán UROBILINOGEN UA (BEAKER) (test code = 463) 0.2 mg/dL 0.2-1.0 RBC UA (BEAKER) (test code = 519) 2 /HPF WBC UA (BEAKER) (test code = 520) 1 /HPF BACTERIA (BEAKER) (test code = 517) Few MUCUS (BEAKER) (test code = 1574) Occasional SOURCE(BEAKER) (test code = 2795) Urine, Voided [id number] 06:25:00* Test Item Value Reference Range Interpretation Comments MAGNESIUM (BEAKER) (test code = 627) 1.8 mg/dL 1.6-2.6 Specimen slightly hemolyzed BASIC METABOLIC [id number] 06:25:00* Test Item Value Reference Range Interpretation Comments SODIUM (BEAKER) (test code = 381) 137 meq/L 136-145 POTASSIUM (BEAKER) (test code = 379) 3.4 meq/L 3.5-5.1 L Specimen slightly hemolyzed CHLORIDE (BEAKER) (test code = 382) 107 meq/L 98-107 CO2 (BEAKER) (test code = 355) 21 meq/L 22-29 L BLOOD UREA NITROGEN (BEAKER) (test code = 354) 15 mg/dL 7-21 CREATININE (BEAKER) (test code = 358) 0.86 mg/dL 0.57-1.25 Specimen slightly hemolyzed GLUCOSE RANDOM (BEAKER) (test code = 652) 177 mg/dL 70-105 H CALCIUM (BEAKER) (test code = 697) 8.6 mg/dL 8.4-10.2 EGFR (BEAKER) (test code = 1092) 95 mL/min/1.73 sq m ESTIMATED GFR IS NOT ACCURATE CREATININE CLEARANCE IN PREDICTING GLOMERULAR FILTRATION RATE. ESTIMATED GFR IS NOT APPLICABLE FOR DIALYSIS PATIENTS. HEPATIC FUNCTION [id number] 06:25:00* Test Item Value Reference Range Interpretation Comments TOTAL PROTEIN (BEAKER) (test code = 770) 6.5 gm/dL 6.0-8.3 Specimen slightly hemolyzed ALBUMIN (BEAKER) (test code = 1145) 3.5 g/dL 3.5-5.0 Specimen slightly hemolyzed BILIRUBIN TOTAL (BEAKER) (test code = 377) 0.6 mg/dL 0.2-1.2 Specimen slightly hemolyzed BILIRUBIN DIRECT (BEAKER) (test code = 706) 0.2 mg/dL 0.1-0.5 Specimen slightly hemolyzed ALKALINE PHOSPHATASE (BEAKER) (test code = 346) 61 U/L 40-150 AST (SGOT) (BEAKER) (test code = 353) 22 U/L 5-34 Specimen slightly hemolyzed ALT (SGPT) (BEAKER) (test code = 347) 28 U/L 6-55 Specimen slightly hemolyzed [id number] 06:25:00* Test Item Value Reference Range Interpretation Comments AMYLASE (BEAKER) (test code = 349) 64 U/L 25-125 Specimen slightly hemolyzed [id number] 06:25:00* Test Item Value Reference Range Interpretation Comments LIPASE (BEAKER) (test code = 749) 10 U/L 8-78 CBC W/PLT COUNT & AUTO [id number] 05:29:00* Test Item Value Reference Range Interpretation Comments WHITE BLOOD CELL COUNT (BEAKER) (test code = 775) 4.7 K/ L 3.5- 10.5 RED BLOOD CELL COUNT (BEAKER) (test code = 761) 5.31 M/ L 4.63-6 .08 HEMOGLOBIN (BEAKER) (test code = 410) 15.9 GM/DL 13.7-17.5 HEMATOCRIT (BEAKER) (test code = 411) 47.9 % 40.1-51.0 MEAN CORPUSCULAR VOLUME (BEAKER) (test code = 753) 90.2 fL 79. 0-92.2 MEAN CORPUSCULAR HEMOGLOBIN (BEAKER) (test code = 751) 29.9 pg 25.7-32.2 MEAN CORPUSCULAR HEMOGLOBIN CONC (BEAKER) (test code = 752) 33.2 GM/DL 32.3-36.5 RED CELL DISTRIBUTION WIDTH (BEAKER) (test code = 412) 14.2 % 11.6-14.4 PLATELET COUNT (BEAKER) (test code = 756) 129 K/CU MM 150-450 L MEAN PLATELET VOLUME (BEAKER) (test code = 754) 11.3 fL 9.4-12 .4 NUCLEATED RED BLOOD CELLS (BEAKER) (test code = 413) 0 /100 WBC 0 -0 NEUTROPHILS RELATIVE PERCENT (BEAKER) (test code = 429) 60 % LYMPHOCYTES RELATIVE PERCENT (BEAKER) (test code = 430) 27 % MONOCYTES RELATIVE PERCENT (BEAKER) (test code = 431) 9 % EOSINOPHILS RELATIVE PERCENT (BEAKER) (test code = 432) 3 % BASOPHILS RELATIVE PERCENT (BEAKER) (test code = 437) 1 % NEUTROPHILS ABSOLUTE COUNT (BEAKER) (test code = 670) 2.82 K/ L 1.78-5.38 LYMPHOCYTES ABSOLUTE COUNT (BEAKER) (test code = 414) 1.28 K/ L 1.32-3.57 L MONOCYTES ABSOLUTE COUNT (BEAKER) (test code = 415) 0.44 K/ L 0. 30-0.82 EOSINOPHILS ABSOLUTE COUNT (BEAKER) (test code = 416) 0.14 K/ L 0.04-0.54 BASOPHILS ABSOLUTE COUNT (BEAKER) (test code = 417) 0.03 K/ L 0. 01-0.08 IMMATURE GRANULOCYTES-RELATIVE PERCENT (BEAKER) (test code = 2801) 1 % 0-1 POCT-GLUCOSE [id number] 01:35:00* Test Item Value Reference Range Interpretation Comments POC-GLUCOSE METER (BEAKER) (test code = 1538) 154 mg/dL 70-110 H TESTED AT [facility] [address] [facility] [address] GAMMA GLUTAMYL TRANSFERASE (GGT)2018-02-22 00:59:00* Test Item Value Reference Range Interpretation Comments GAMMA GLUTAMYL TRANSFERASE (BEAKER) (test code = 364) 23 U/L 9-64 KETONE, [id number] 00:42:00* Test Item Value Reference Range Interpretation Comments KETONES, BLOOD (BEAKER) (test code = 1103) 0.1 mmol/L <0.4 U/S, ABDOMINAL, [id number] 21:23:00Abdomen limited area? Add comment if clarification is needed.->Right upper quadrantReason for exam:->ABDOMINAL PAIN FINAL REPORT Right Upper Quadrant Ultrasound Clinical Di agnosis: Abdominal pain Comparison: Multiple prior exams Technique: Multiple tra nsaxial and longitudinal images were obtained through the [facility]. Five mHz transducer [...] MDReport Verified Date/Time: 02/21/2018 21:23:48 Reading Location: [address] Consult Reading Room C METABOLIC [id number] 20:12:00* Test Item Value Reference Range Interpretation Comments SODIUM (BEAKER) (test code = 381) 138 meq/L 136-145 POTASSIUM (BEAKER) (test code = 379) 3.7 meq/L 3.5-5.1 Specimen slightly hemolyzed CHLORIDE (BEAKER) (test code = 382) 107 meq/L 98-107 CO2 (BEAKER) (test code = 355) 22 meq/L 22-29 BLOOD UREA NITROGEN (BEAKER) (test code = 354) 18 mg/dL 7-21 CREATININE (BEAKER) (test code = 358) 1.11 mg/dL 0.57-1.25 Specimen slightly hemolyzed GLUCOSE RANDOM (BEAKER) (test code = 652) 189 mg/dL 70-105 H CALCIUM (BEAKER) (test code = 697) 9.3 mg/dL 8.4-10.2 EGFR (BEAKER) (test code = 1092) 71 mL/min/1.73 sq m ESTIMATED GFR IS NOT ACCURATE CREATININE CLEARANCE IN PREDICTING GLOMERULAR FILTRATION RATE. ESTIMATED GFR IS NOT APPLICABLE FOR DIALYSIS PATIENTS. ALKALINE [id number] 18:52:00* Test Item Value Reference Range Interpretation Comments ALKALINE PHOSPHATASE (BEAKER) (test code = 346) 79 U/L 40-150 [id number] 18:52:00* Test Item Value Reference Range Interpretation Comments LIPASE (BEAKER) (test code = 749) 18 U/L 8-78 ALT (SGPT)2018-02-21 18:52:00* Test Item Value Reference Range Interpretation Comments ALT (SGPT) (BEAKER) (test code = 347) 34 U/L 6-55 Specimen slightly hemolyzed AST (SGOT)2018-02-21 18:52:00* Test Item Value Reference Range Interpretation Comments AST (SGOT) (BEAKER) (test code = 353) 24 U/L 5-34 Specimen slightly hemolyzed BILIRUBIN, ADULT [id number] 18:52:00* Test Item Value Reference Range Interpretation Comments BILIRUBIN TOTAL (BEAKER) (test code = 377) 0.5 mg/dL 0.2-1.2 Specimen slightly hemolyzed RAD, CHEST, 1 VIEW, NON [id number] 18:48:00Reason for exam:->CHEST PAINShould this be performed [...] and no interval change Signed: Liana Jauregui MDReport Verified Date/Time: 02/21/2018 18:48:31 Reading Location: [address] Consult Reading Room W/PLT COUNT & AUTO DIFFERENTIAL 2018-02-21 18:39:00* Test Item Value Reference Range Interpretation Comments WHITE BLOOD CELL COUNT (BEAKER) (test code = 775) 5.4 K/ L 3.5- 10.5 RED BLOOD CELL COUNT (BEAKER) (test code = 761) 5.44 M/ L 4.63-6 .08 HEMOGLOBIN (BEAKER) (test code = 410) 16.3 GM/DL 13.7-17.5 HEMATOCRIT (BEAKER) (test code = 411) 49.2 % 40.1-51.0 MEAN CORPUSCULAR VOLUME (BEAKER) (test code = 753) 90.4 fL 79. 0-92.2 MEAN CORPUSCULAR HEMOGLOBIN (BEAKER) (test code = 751) 30.0 pg 25.7-32.2 MEAN CORPUSCULAR HEMOGLOBIN CONC (BEAKER) (test code = 752) 33.1 GM/DL 32.3-36.5 RED CELL DISTRIBUTION WIDTH (BEAKER) (test code = 412) 14.0 % 11.6-14.4 PLATELET COUNT (BEAKER) (test code = 756) 139 K/CU MM 150-450 L MEAN PLATELET VOLUME (BEAKER) (test code = 754) 11.2 fL 9.4-12 .4 NUCLEATED RED BLOOD CELLS (BEAKER) (test code = 413) 0 /100 WBC 0 -0 NEUTROPHILS RELATIVE PERCENT (BEAKER) (test code = 429) 61 % LYMPHOCYTES RELATIVE PERCENT (BEAKER) (test code = 430) 27 % MONOCYTES RELATIVE PERCENT (BEAKER) (test code = 431) 8 % EOSINOPHILS RELATIVE PERCENT (BEAKER) (test code = 432) 3 % BASOPHILS RELATIVE PERCENT (BEAKER) (test code = 437) 1 % NEUTROPHILS ABSOLUTE COUNT (BEAKER) (test code = 670) 3.26 K/ L 1.78-5.38 LYMPHOCYTES ABSOLUTE COUNT (BEAKER) (test code = 414) 1.44 K/ L 1.32-3.57 MONOCYTES ABSOLUTE COUNT (BEAKER) (test code = 415) 0.45 K/ L 0. 30-0.82 EOSINOPHILS ABSOLUTE COUNT (BEAKER) (test code = 416) 0.14 K/ L 0.04-0.54 BASOPHILS ABSOLUTE COUNT (BEAKER) (test code = 417) 0.04 K/ L 0. 01-0.08 IMMATURE GRANULOCYTES-RELATIVE PERCENT (BEAKER) (test code = 2801) 1 % 0-1 POCT-LACTIC ACID, [id number] 18:34:00* Test Item Value Reference Range Interpretation Comments POC-LACTIC ACID, VENOUS (BEAKER) (test code = 2805) 1.4 mmol/L 0. 9-1.7 TESTED AT [facility] [address] [facility] [address] POCT-GLUCOSE [id number] 04:18:00* Test Item Value Reference Range Interpretation Comments POC-GLUCOSE METER (BEAKER) (test code = 1538) 254 mg/dL 70-110 H TESTED AT [address] [address] [place], [id number] 01:04:00Reason for exam:->abdominal painFINAL REPORT EXAMINATION: CT [...] Results discussed with Dr. Lewis. Signed: Titus Burris MDReport Verified Date/Time: 04/23/2017 01:04:07 Reading Location: [address] Reading Room E lectronically signed by: TITUS BURRIS M.D. on 02/20/2018 01:04 AM HEPATIC FUNCTION [id number] 23:01:00* Test Item Value Reference Range Interpretation Comments TOTAL PROTEIN (BEAKER) (test code = 770) 8.3 gm/dL 6.0-8.3 Specimen moderately hemolyzed ALBUMIN (BEAKER) (test code = 1145) 4.0 g/dL 3.5-5.0 Specimen moderately hemolyzed BILIRUBIN TOTAL (BEAKER) (test code = 377) 0.4 mg/dL 0.2-1.2 Specimen moderately hemolyzed BILIRUBIN DIRECT (BEAKER) (test code = 706) < mg/dL 0.1-0.5 L Specimen moderately hemolyzed ALKALINE PHOSPHATASE (BEAKER) (test code = 346) 94 U/L 40-150 AST (SGOT) (BEAKER) (test code = 353) 28 U/L 5-34 Specimen moderately hemolyzed ALT (SGPT) (BEAKER) (test code = 347) 29 U/L 6-55 Specimen moderately hemolyzed Specimen markedly [id number] 22:58:00* Test Item Value Reference Range Interpretation Comments LIPASE (BEAKER) (test code = 749) 38 U/L 8-78 BASIC METABOLIC [id number] 22:58:00* Test Item Value Reference Range Interpretation Comments SODIUM (BEAKER) (test code = 381) 133 meq/L 136-145 L POTASSIUM (BEAKER) (test code = 379) 3.8 meq/L 3.5-5.1 Specimen moderately hemolyzed CHLORIDE (BEAKER) (test code = 382) 103 meq/L 98-107 CO2 (BEAKER) (test code = 355) 15 meq/L 22-29 L BLOOD UREA NITROGEN (BEAKER) (test code = 354) 21 mg/dL 7-21 CREATININE (BEAKER) (test code = 358) 1.19 mg/dL 0.57-1.25 Specimen moderately hemolyzed GLUCOSE RANDOM (BEAKER) (test code = 652) 336 mg/dL 70-105 H CALCIUM (BEAKER) (test code = 697) 9.5 mg/dL 8.4-10.2 EGFR (BEAKER) (test code = 1092) 66 mL/min/1.73 sq m ESTIMATED GFR IS NOT ACCURATE CREATININE CLEARANCE IN PREDICTING GLOMERULAR FILTRATION RATE. ESTIMATED GFR IS NOT APPLICABLE FOR DIALYSIS PATIENTS. CBC W/PLT COUNT & AUTO [id number] 22:57:00* Test Item Value Reference Range Interpretation Comments WHITE BLOOD CELL COUNT (BEAKER) (test code = 775) 5.0 K/ L 3.5- 10.5 RED BLOOD CELL COUNT (BEAKER) (test code = 761) 5.07 M/ L 4.63-6 .08 HEMOGLOBIN (BEAKER) (test code = 410) 15.4 GM/DL 13.7-17.5 HEMATOCRIT (BEAKER) (test code = 411) 46.2 % 40.1-51.0 MEAN CORPUSCULAR VOLUME (BEAKER) (test code = 753) 91.1 fL 79. 0-92.2 MEAN CORPUSCULAR HEMOGLOBIN (BEAKER) (test code = 751) 30.4 pg 25.7-32.2 MEAN CORPUSCULAR HEMOGLOBIN CONC (BEAKER) (test code = 752) 33.3 GM/DL 32.3-36.5 RED CELL DISTRIBUTION WIDTH (BEAKER) (test code = 412) 14.0 % 11.6-14.4 PLATELET COUNT (BEAKER) (test code = 756) 131 K/CU MM 150-450 L MEAN PLATELET VOLUME (BEAKER) (test code = 754) 11.7 fL 9.4-12 .4 NUCLEATED RED BLOOD CELLS (BEAKER) (test code = 413) 0 /100 WBC 0 -0 NEUTROPHILS RELATIVE PERCENT (BEAKER) (test code = 429) 57 % LYMPHOCYTES RELATIVE PERCENT (BEAKER) (test code = 430) 29 % MONOCYTES RELATIVE PERCENT (BEAKER) (test code = 431) 10 % EOSINOPHILS RELATIVE PERCENT (BEAKER) (test code = 432) 2 % BASOPHILS RELATIVE PERCENT (BEAKER) (test code = 437) 1 % NEUTROPHILS ABSOLUTE COUNT (BEAKER) (test code = 670) 2.85 K/ L 1.78-5.38 LYMPHOCYTES ABSOLUTE COUNT (BEAKER) (test code = 414) 1.44 K/ L 1.32-3.57 MONOCYTES ABSOLUTE COUNT (BEAKER) (test code = 415) 0.50 K/ L 0. 30-0.82 EOSINOPHILS ABSOLUTE COUNT (BEAKER) (test code = 416) 0.11 K/ L 0.04-0.54 BASOPHILS ABSOLUTE COUNT (BEAKER) (test code = 417) 0.03 K/ L 0. 01-0.08 IMMATURE GRANULOCYTES-RELATIVE PERCENT (BEAKER) (test code = 2801) 1 % 0-1 KETONE, [id number] 22:14:00* Test Item Value Reference Range Interpretation Comments KETONES, BLOOD (BEAKER) (test code = 1103) 0.1 mmol/L <0.4 CTA [id number] 17:31:00 [place] [address] Patient Name: DC BARNHART MR #: [id number] : 1970 Age/Sex: 47/M Req #: [id number] [facility] Physician: KAREN MCGOWAN MD Ordered by: KAREN MCGOWAN MD Report #: [id number] Location: [facility] Room/Bed: [place] [address] Procedure: [id number] CT /CTA CHEST Exam Date: 02/11/18 Exam [...] 02/11/181738 COPY TO: KAREN MCGOWAN MD CTA [id number] 17:31:00 [place] [address] Patient Name: DC BARNHART MR #: [id number] : 1970 Age/Sex: 47/M Req #: [id number] [facility] Physician: KAREN MCGOWAN MD Ordered by: KAREN MCGOWAN MD Report #: [id number] Location: [facility] Room/Bed: [place] [address] Procedure: [id number] CT /CTA CHEST Exam Date: 02/11/18 Exam [...] KAREN MCGOWAN MD CXR 2 VIEW - [id number] 15:33:00 [place] [address] Patient Name: DC BARNHART MR #: [id number] : 1970 Age/Sex: 47/M Req #: [id number] Adm Physician: Ordered by: NAKIA LAEJANDRO MD Report #: [id number] Location: [facility] Room/Bed: Procedure: [id number] PD/CXR 2 VIEW - HOPD Exam Date: [...] 3:36 PM Dictated By: ADRIENNE HUSTON DO 35 COPY TO: DALY ALEJANDRO MD HEPATIC FUNCTION [id number] 15:12:00* Test Item Value Reference Range Interpretation Comments TOTAL PROTEIN (BEAKER) (test code = 770) 9.0 gm/dL 6.0-8.3 H Specimen markedly hemolyzed ALBUMIN (BEAKER) (test code = 1145) 4.0 g/dL 3.5-5.0 Specimen markedly hemolyzed BILIRUBIN TOTAL (BEAKER) (test code = 377) 0.5 mg/dL 0.2-1.2 Specimen markedly hemolyzed BILIRUBIN DIRECT (BEAKER) (test code = 706) < mg/dL 0.1-0.5 L Specimen markedly hemolyzed ALKALINE PHOSPHATASE (BEAKER) (test code = 346) 96 U/L 40-150 AST (SGOT) (BEAKER) (test code = 353) 38 U/L 5-34 H Specimen markedly hemolyzed ALT (SGPT) (BEAKER) (test code = 347) 25 U/L 6-55 Specimen markedly hemolyzed Specimen markedly [id number] 15:07:00* Test Item Value Reference Range Interpretation Comments LIPASE (BEAKER) (test code = 749) 46 U/L 8-78 TROPONIN [id number] 13:43:00* Test Item Value Reference Range Interpretation Comments TROPONIN I (BEAKER) (test code = 397) < ng/mL 0.00-0.03 [id number] 13:38:00* Test Item Value Reference Range Interpretation Comments MAGNESIUM (BEAKER) (test code = 627) 3.5 mg/dL 1.6-2.6 H Specimen markedly hemolyzed [id number] 13:38:00* Test Item Value Reference Range Interpretation Comments PHOSPHORUS (BEAKER) (test code = 604) 2.3 mg/dL 2.3-4.7 Specimen markedly hemolyzed BASIC METABOLIC [id number] 13:38:00* Test Item Value Reference Range Interpretation Comments SODIUM (BEAKER) (test code = 381) 131 meq/L 136-145 L POTASSIUM (BEAKER) (test code = 379) 4.0 meq/L 3.5-5.1 Specimen markedly hemolyzed CHLORIDE (BEAKER) (test code = 382) 101 meq/L 98-107 CO2 (BEAKER) (test code = 355) 14 meq/L 22-29 L BLOOD UREA NITROGEN (BEAKER) (test code = 354) 19 mg/dL 7-21 CREATININE (BEAKER) (test code = 358) 1.21 mg/dL 0.57-1.25 Specimen markedly hemolyzed GLUCOSE RANDOM (BEAKER) (test code = 652) 299 mg/dL 70-105 H CALCIUM (BEAKER) (test code = 697) 9.7 mg/dL 8.4-10.2 EGFR (BEAKER) (test code = 1092) 64 mL/min/1.73 sq m ESTIMATED GFR IS NOT ACCURATE CREATININE CLEARANCE IN PREDICTING GLOMERULAR FILTRATION RATE. ESTIMATED GFR IS NOT APPLICABLE FOR DIALYSIS PATIENTS. CBC W/PLT COUNT & AUTO [id number] 13:23:00* Test Item Value Reference Range Interpretation Comments WHITE BLOOD CELL COUNT (BEAKER) (test code = 775) 5.4 K/ L 3.5- 10.5 RED BLOOD CELL COUNT (BEAKER) (test code = 761) 5.07 M/ L 4.63-6 .08 HEMOGLOBIN (BEAKER) (test code = 410) 16.4 GM/DL 13.7-17.5 HEMATOCRIT (BEAKER) (test code = 411) 45.3 % 40.1-51.0 MEAN CORPUSCULAR VOLUME (BEAKER) (test code = 753) 89.3 fL 79. 0-92.2 MEAN CORPUSCULAR HEMOGLOBIN (BEAKER) (test code = 751) 32.3 pg 25.7-32.2 H MEAN CORPUSCULAR HEMOGLOBIN CONC (BEAKER) (test code = 752) 36.2 GM/DL 32.3-36.5 RED CELL DISTRIBUTION WIDTH (BEAKER) (test code = 412) 13.5 % 11.6-14.4 PLATELET COUNT (BEAKER) (test code = 756) 153 K/CU MM 150-450 MEAN PLATELET VOLUME (BEAKER) (test code = 754) 12.0 fL 9.4-12 .4 NUCLEATED RED BLOOD CELLS (BEAKER) (test code = 413) 0 /100 WBC 0 -0 NEUTROPHILS RELATIVE PERCENT (BEAKER) (test code = 429) 60 % LYMPHOCYTES RELATIVE PERCENT (BEAKER) (test code = 430) 30 % MONOCYTES RELATIVE PERCENT (BEAKER) (test code = 431) 7 % EOSINOPHILS RELATIVE PERCENT (BEAKER) (test code = 432) 2 % BASOPHILS RELATIVE PERCENT (BEAKER) (test code = 437) 1 % NEUTROPHILS ABSOLUTE COUNT (BEAKER) (test code = 670) 3.25 K/ L 1.78-5.38 LYMPHOCYTES ABSOLUTE COUNT (BEAKER) (test code = 414) 1.60 K/ L 1.32-3.57 MONOCYTES ABSOLUTE COUNT (BEAKER) (test code = 415) 0.38 K/ L 0. 30-0.82 EOSINOPHILS ABSOLUTE COUNT (BEAKER) (test code = 416) 0.11 K/ L 0.04-0.54 BASOPHILS ABSOLUTE COUNT (BEAKER) (test code = 417) 0.03 K/ L 0. 01-0.08 IMMATURE GRANULOCYTES-RELATIVE PERCENT (BEAKER) (test code = 2801) 1 % 0-1 KETONE, [id number] 13:22:00* Test Item Value Reference Range Interpretation Comments KETONES, BLOOD (BEAKER) (test code = 1103) 0.2 mmol/L <0.4 POCT-GLUCOSE [id number] 12:22:00* Test Item Value Reference Range Interpretation Comments POC-GLUCOSE METER (BEAKER) (test code = 1538) 287 mg/dL 70-110 H TESTED AT [facility] [address] [facility] [id number] BASIC METABOLIC [id number] 15:14:00* Test Item Value Reference Range Interpretation Comments SODIUM (BEAKER) (test code = 381) 130 meq/L 136-145 L POTASSIUM (BEAKER) (test code = 379) 3.8 meq/L 3.5-5.1 Specimen moderately hemolyzed CHLORIDE (BEAKER) (test code = 382) 98 meq/L 98-107 CO2 (BEAKER) (test code = 355) 16 meq/L 22-29 L BLOOD UREA NITROGEN (BEAKER) (test code = 354) 24 mg/dL 7-21 H CREATININE (BEAKER) (test code = 358) 1.26 mg/dL 0.57-1.25 H Specimen moderately hemolyzed GLUCOSE RANDOM (BEAKER) (test code = 652) 247 mg/dL 70-105 H CALCIUM (BEAKER) (test code = 697) 9.0 mg/dL 8.4-10.2 EGFR (BEAKER) (test code = 1092) 61 mL/min/1.73 sq m ESTIMATED GFR IS NOT ACCURATE CREATININE CLEARANCE IN PREDICTING GLOMERULAR FILTRATION RATE. ESTIMATED GFR IS NOT APPLICABLE FOR DIALYSIS PATIENTS. URINALYSIS W/ [id number] 13:35:00* Test Item Value Reference Range Interpretation Comments COLOR (BEAKER) (test code = 470) Light Yellow CLARITY (BEAKER) (test code = 469) Clear SPECIFIC GRAVITY UA (BEAKER) (test code = 468) 1.015 1.001-1 .035 PH UA (BEAKER) (test code = 467) 5.5 5.0-8.0 PROTEIN UA (BEAKER) (test code = 464) 20 mg/dL Negative A GLUCOSE UA (BEAKER) (test code = 365) >1000 mg/dL Negative A KETONES UA (BEAKER) (test code = 371) Negative Negative BILIRUBIN UA (BEAKER) (test code = 462) Negative Negative BLOOD UA (BEAKER) (test code = 461) Negative Negative NITRITE UA (BEAKER) (test code = 465) Negative Negative LEUKOCYTE ESTERASE UA (BEAKER) (test code = 466) Negative Negat adán UROBILINOGEN UA (BEAKER) (test code = 463) 0.2 mg/dL 0.2-1.0 RBC UA (BEAKER) (test code = 519) < /HPF WBC UA (BEAKER) (test code = 520) < /HPF MUCUS (BEAKER) (test code = 1574) Rare SQUAMOUS EPITHELIAL (BEAKER) (test code = 516) < /HPF SOURCE(BEAKER) (test code = 9955) Urine, Voided CREATINE KINASE (CK), TOTAL AND [id number] 13:18:00* Test Item Value Reference Range Interpretation Comments CREATINE KINASE TOTAL (BEAKER) (test code = 380) 188 U/L 29-20 0 CREATINE KINASE-MB (BEAKER) (test code = 750) 3.1 ng/mL 0.0-6.6 CREATINE KINASE-MB INDEX (BEAKER) (test code = 395) 1.6 % CK-MB Reference Range:<6.7 Normal6.7-10.0 Borderline>10.0 Abnormal TROPONIN [id number] 13:18:00* Test Item Value Reference Range Interpretation Comments TROPONIN I (BEAKER) (test code = 397) < ng/mL 0.00-0.03 Troponin I (TnI) levels [...] acute neurological disease, and per sistent tachyarrhythmia.KETONE, [id number] 13:15:00* Test Item Value Reference Range Interpretation Comments KETONES, BLOOD (BEAKER) (test code = 1103) 0.2 mmol/L <0.4 BASIC METABOLIC [id number] 13:11:00* Test Item Value Reference Range Interpretation Comments SODIUM (BEAKER) (test code = 381) 127 meq/L 136-145 L POTASSIUM (BEAKER) (test code = 379) 3.8 meq/L 3.5-5.1 Specimen moderately hemolyzed CHLORIDE (BEAKER) (test code = 382) 94 meq/L 98-107 L CO2 (BEAKER) (test code = 355) 16 meq/L 22-29 L BLOOD UREA NITROGEN (BEAKER) (test code = 354) 25 mg/dL 7-21 H CREATININE (BEAKER) (test code = 358) 1.40 mg/dL 0.57-1.25 H Specimen moderately hemolyzed GLUCOSE RANDOM (BEAKER) (test code = 652) 320 mg/dL 70-105 H CALCIUM (BEAKER) (test code = 697) 9.3 mg/dL 8.4-10.2 EGFR (BEAKER) (test code = 1092) 54 mL/min/1.73 sq m ESTIMATED GFR IS NOT ACCURATE CREATININE CLEARANCE IN PREDICTING GLOMERULAR FILTRATION RATE. ESTIMATED GFR IS NOT APPLICABLE FOR DIALYSIS PATIENTS. BLOOD GAS, [id number] 12:57:00* Test Item Value Reference Range Interpretation Comments PH VENOUS (BEAKER) (test code = 701) 7.41 7.32-7.42 PCO2 VENOUS (BEAKER) (test code = 755) 44 mmHg 41-51 PO2 VENOUS (BEAKER) (test code = 702) 33 mmHg 25-40 O2 SATURATION VENOUS (BEAKER) (test code = 703) 67.3 % 40.0-7 0.0 HCO3 VENOUS (BEAKER) (test code = 705) 27 mmol/L 21-29 BASE EXCESS VENOUS (BEAKER) (test code = 704) 1.6 mmol/L -2.0-3.0 PATIENT TEMPERATURE (BEAKER) (test code = 1818) 36.0 C FIO2 (BEAKER) (test code = 1819) 21.0 % CBC W/PLT COUNT & AUTO [id number] 12:49:00* Test Item Value Reference Range Interpretation Comments WHITE BLOOD CELL COUNT (BEAKER) (test code = 775) 5.6 K/ L 3.5- 10.5 RED BLOOD CELL COUNT (BEAKER) (test code = 761) 4.99 M/ L 4.63-6 .08 HEMOGLOBIN (BEAKER) (test code = 410) 15.6 GM/DL 13.7-17.5 HEMATOCRIT (BEAKER) (test code = 411) 44.4 % 40.1-51.0 MEAN CORPUSCULAR VOLUME (BEAKER) (test code = 753) 89.0 fL 79. 0-92.2 MEAN CORPUSCULAR HEMOGLOBIN (BEAKER) (test code = 751) 31.3 pg 25.7-32.2 MEAN CORPUSCULAR HEMOGLOBIN CONC (BEAKER) (test code = 752) 35.1 GM/DL 32.3-36.5 RED CELL DISTRIBUTION WIDTH (BEAKER) (test code = 412) 13.7 % 11.6-14.4 PLATELET COUNT (BEAKER) (test code = 756) 113 K/CU MM 150-450 L MEAN PLATELET VOLUME (BEAKER) (test code = 754) 12.2 fL 9.4-12 .4 NUCLEATED RED BLOOD CELLS (BEAKER) (test code = 413) 0 /100 WBC 0 -0 NEUTROPHILS RELATIVE PERCENT (BEAKER) (test code = 429) 58 % LYMPHOCYTES RELATIVE PERCENT (BEAKER) (test code = 430) 32 % MONOCYTES RELATIVE PERCENT (BEAKER) (test code = 431) 7 % EOSINOPHILS RELATIVE PERCENT (BEAKER) (test code = 432) 2 % BASOPHILS RELATIVE PERCENT (BEAKER) (test code = 437) 1 % NEUTROPHILS ABSOLUTE COUNT (BEAKER) (test code = 670) 3.25 K/ L 1.78-5.38 LYMPHOCYTES ABSOLUTE COUNT (BEAKER) (test code = 414) 1.81 K/ L 1.32-3.57 MONOCYTES ABSOLUTE COUNT (BEAKER) (test code = 415) 0.40 K/ L 0. 30-0.82 EOSINOPHILS ABSOLUTE COUNT (BEAKER) (test code = 416) 0.11 K/ L 0.04-0.54 BASOPHILS ABSOLUTE COUNT (BEAKER) (test code = 417) 0.03 K/ L 0. 01-0.08 IMMATURE GRANULOCYTES-RELATIVE PERCENT (BEAKER) (test code = 2801) 1 % 0-1 CT, CHEST, WITHOUT [id number] 14:32:00Reason for exam:->CHEST PAINWhat is the patient's [...] Sahniort Verified Date/Time: 11/04/2017 14:32:02 Reading Location: [facility] Radiology Reading Room Electronically signed by: MIGUEL SAHNI M.D. on 02:32 PM RAD, CHEST, 1 VIEW, NON [id number] 14:18:00Reason for exam:->CHEST PAINShould this be performed at the bedside?->YesFINAL REPORT TECHNIQUE: Frontal chest radiographs dated 11/04/2017. CLINICAL HISTORY: Chest pain COMPARISON STUDY: Chest radiograph dated 10/13/2017 IMPRESSION: Lungs are clear. No pleural effusion or pneumothorax. Car diomediastinal silhouette is normal in size. No pulmonary edema. No fracture. De generative changes are seen in the spine. Signed: Rex Fontenot Date/Time: 11/04/2017 14:18:53 Reading Location: [facility] Radiology Reading Room P M TROPONIN [id number] 13:35:00* Test Item Value Reference Range Interpretation Comments TROPONIN I (BEAKER) (test code = 397) 0.01 ng/mL 0.00-0.03 Troponin I (TnI) levels [...] acidosis, acute neurological disease, and per sistent tachyarrhythmia.[id number] 13:29:00* Test Item Value Reference Range Interpretation Comments AMYLASE (BEAKER) (test code = 349) 41 U/L 25-125 BASIC METABOLIC [id number] 13:29:00* Test Item Value Reference Range Interpretation Comments SODIUM (BEAKER) (test code = 381) 134 meq/L 136-145 L POTASSIUM (BEAKER) (test code = 379) 3.7 meq/L 3.5-5.1 CHLORIDE (BEAKER) (test code = 382) 102 meq/L 98-107 CO2 (BEAKER) (test code = 355) 24 meq/L 22-29 BLOOD UREA NITROGEN (BEAKER) (test code = 354) 25 mg/dL 7-21 H CREATININE (BEAKER) (test code = 358) 1.68 mg/dL 0.57-1.25 H GLUCOSE RANDOM (BEAKER) (test code = 652) 298 mg/dL 70-105 H CALCIUM (BEAKER) (test code = 697) 9.1 mg/dL 8.4-10.2 EGFR (BEAKER) (test code = 1092) 44 mL/min/1.73 sq m ESTIMATED GFR IS NOT ACCURATE CREATININE CLEARANCE IN PREDICTING GLOMERULAR FILTRATION RATE. ESTIMATED GFR IS NOT APPLICABLE FOR DIALYSIS PATIENTS. [id number] 13:29:00* Test Item Value Reference Range Interpretation Comments MAGNESIUM (BEAKER) (test code = 627) 2.0 mg/dL 1.6-2.6 [id number] 13:29:00* Test Item Value Reference Range Interpretation Comments LIPASE (BEAKER) (test code = 749) 14 U/L 8-78 [id number] 13:24:00* Test Item Value Reference Range Interpretation Comments PROTIME (BEAKER) (test code = 759) 15.9 seconds 11.7-14.7 H INR (BEAKER) (test code = 370) 1.3 <=5.9 PARTIAL THROMBOPLASTIN TIME (BEAKER) (test code = 760) 28.7 seconds 22.5-36.0 RECOMMENDED COUMADIN/WARFARIN INR THERAPY RANGESSTANDARD DOSE: 2.0 - 3.0 Inclu josé: PROPHYLAXIS for venous thrombosis, systemic embolization; TREATMENT for angelika ous thrombosis and/or pulmonary embolus.HIGH RISK: Target INR is 2.5-3.5 for pat ients with mechanical heart valves.CBC W/PLT COUNT & AUTO [id number] 13:07:00* Test Item Value Reference Range Interpretation Comments WHITE BLOOD CELL COUNT (BEAKER) (test code = 775) 6.0 K/ L 3.5- 10.5 RED BLOOD CELL COUNT (BEAKER) (test code = 761) 4.65 M/ L 4.63-6 .08 HEMOGLOBIN (BEAKER) (test code = 410) 14.2 GM/DL 13.7-17.5 HEMATOCRIT (BEAKER) (test code = 411) 42.6 % 40.1-51.0 MEAN CORPUSCULAR VOLUME (BEAKER) (test code = 753) 91.6 fL 79. 0-92.2 MEAN CORPUSCULAR HEMOGLOBIN (BEAKER) (test code = 751) 30.5 pg 25.7-32.2 MEAN CORPUSCULAR HEMOGLOBIN CONC (BEAKER) (test code = 752) 33.3 GM/DL 32.3-36.5 RED CELL DISTRIBUTION WIDTH (BEAKER) (test code = 412) 13.8 % 11.6-14.4 PLATELET COUNT (BEAKER) (test code = 756) 115 K/CU MM 150-450 L MEAN PLATELET VOLUME (BEAKER) (test code = 754) 12.0 fL 9.4-12 .4 NUCLEATED RED BLOOD CELLS (BEAKER) (test code = 413) 0 /100 WBC 0 -0 NEUTROPHILS RELATIVE PERCENT (BEAKER) (test code = 429) 68 % LYMPHOCYTES RELATIVE PERCENT (BEAKER) (test code = 430) 19 % MONOCYTES RELATIVE PERCENT (BEAKER) (test code = 431) 10 % EOSINOPHILS RELATIVE PERCENT (BEAKER) (test code = 432) 2 % BASOPHILS RELATIVE PERCENT (BEAKER) (test code = 437) 0 % NEUTROPHILS ABSOLUTE COUNT (BEAKER) (test code = 670) 4.04 K/ L 1.78-5.38 LYMPHOCYTES ABSOLUTE COUNT (BEAKER) (test code = 414) 1.10 K/ L 1.32-3.57 L MONOCYTES ABSOLUTE COUNT (BEAKER) (test code = 415) 0.62 K/ L 0. 30-0.82 EOSINOPHILS ABSOLUTE COUNT (BEAKER) (test code = 416) 0.14 K/ L 0.04-0.54 BASOPHILS ABSOLUTE COUNT (BEAKER) (test code = 417) 0.01 K/ L 0. 01-0.08 IMMATURE GRANULOCYTES-RELATIVE PERCENT (BEAKER) (test code = 2801) 1 % 0-1 ABDOMEN ACUTE SERIES David/SHREE [id number] 04:30:00 [facility] [address] [place] [address] Patient Name: DC BARNHART MR #: [id number] : 1970 Age/Sex: 47/M Req #: [id number] Adm Physician: Ordered by: DC VENCES MD Report #: [id number] Location: ER Room/Bed: Procedure: [id number] DX/ABDOMEN ACUTE SERIES W/PA CXR Exam Date: [...] MD 1 Transcribed By: SOSA on 11/03/17431 [employer] SCIENCE IN NURSING Y TO: DC VENCES MD [facility] [id number] 21:59:00 [place] [address] Patient Name: DC BARNHART MR #: [id number] : 1970 Age/Sex: 47/M Req #: [id number] Adm Physician: Ordered by: YINKA POWERS MD Report #: [id number] Location: ER Room/Bed: Procedure: [id number] DX/RIBS UNILAT W/CXR Exam Charanjit e: 10/30/17 [...] jose angel By: VU DONAHUE MD on 10/30/17 220 Transcribed By: SOSA on 10/30/17 204 COPY TO: YINKA POWERS MD URINALYSIS W/ [id number] 14:51:00* Test Item Value Reference Range Interpretation Comments COLOR (BEAKER) (test code = 470) Yellow CLARITY (BEAKER) (test code = 469) Clear SPECIFIC GRAVITY UA (BEAKER) (test code = 468) 1.029 1.001-1 .035 PH UA (BEAKER) (test code = 467) 5.5 5.0-8.0 PROTEIN UA (BEAKER) (test code = 464) 100 mg/dL Negative A GLUCOSE UA (BEAKER) (test code = 365) >1000 mg/dL Negative A KETONES UA (BEAKER) (test code = 371) Negative Negative BILIRUBIN UA (BEAKER) (test code = 462) Negative Negative BLOOD UA (BEAKER) (test code = 461) Negative Negative NITRITE UA (BEAKER) (test code = 465) Negative Negative LEUKOCYTE ESTERASE UA (BEAKER) (test code = 466) Negative Negat adán UROBILINOGEN UA (BEAKER) (test code = 463) 0.2 mg/dL 0.2-1.0 RBC UA (BEAKER) (test code = 519) < /HPF WBC UA (BEAKER) (test code = 520) 3 /HPF MUCUS (BEAKER) (test code = 1574) Rare SQUAMOUS EPITHELIAL (BEAKER) (test code = 516) 1 /HPF SOURCE(BEAKER) (test code = 2795) Urine, Clean Catch TROPONIN [id number] 14:01:00* Test Item Value Reference Range Interpretation Comments TROPONIN I (BEAKER) (test code = 397) < ng/mL 0.00-0.03 Troponin I (TnI) levels [...] (BNP)2017-10-13 14:01:00* Test Item Value Reference Range Interpretation Comments B-TYPE NATRIURETIC PEPTIDE (BEAKER) (test code = 700) 27 pg/mL 0-100 [id number] 13:55:00* Test Item Value Reference Range Interpretation Comments MAGNESIUM (BEAKER) (test code = 627) 2.4 mg/dL 1.6-2.6 Specimen slightly hemolyzed BASIC METABOLIC [id number] 13:55:00* Test Item Value Reference Range Interpretation Comments SODIUM (BEAKER) (test code = 381) 137 meq/L 136-145 POTASSIUM (BEAKER) (test code = 379) 3.9 meq/L 3.5-5.1 Specimen slightly hemolyzed CHLORIDE (BEAKER) (test code = 382) 101 meq/L 98-107 CO2 (BEAKER) (test code = 355) 23 meq/L 22-29 BLOOD UREA NITROGEN (BEAKER) (test code = 354) 24 mg/dL 7-21 H CREATININE (BEAKER) (test code = 358) 1.61 mg/dL 0.57-1.25 H Specimen slightly hemolyzed GLUCOSE RANDOM (BEAKER) (test code = 652) 223 mg/dL 70-105 H CALCIUM (BEAKER) (test code = 697) 10.1 mg/dL 8.4-10.2 EGFR (BEAKER) (test code = 1092) 46 mL/min/1.73 sq m ESTIMATED GFR IS NOT ACCURATE CREATININE CLEARANCE IN PREDICTING GLOMERULAR FILTRATION RATE. ESTIMATED GFR IS NOT APPLICABLE FOR DIALYSIS PATIENTS. CREATINE KINASE (CK)2017-10-13 13:55:00* Test Item Value Reference Range Interpretation Comments CREATINE KINASE TOTAL (BEAKER) (test code = 380) 148 U/L 29-20 0 RAD, CHEST, 1 VIEW, NON [id number] 13:38:00Reason for exam:->chest painFINAL REPORT TECHNIQUE: Frontal [...] Verified Date/Time: 10/13/2017 13:38:47 Reading L ocation: [facility] Radiology Reading Room W/PLT COUNT & AUTO [id number] 13:37:00* Test Item Value Reference Range Interpretation Comments WHITE BLOOD CELL COUNT (BEAKER) (test code = 775) 5.1 K/ L 3.5- 10.5 RED BLOOD CELL COUNT (BEAKER) (test code = 761) 5.38 M/ L 4.63-6 .08 HEMOGLOBIN (BEAKER) (test code = 410) 16.6 GM/DL 13.7-17.5 HEMATOCRIT (BEAKER) (test code = 411) 48.1 % 40.1-51.0 MEAN CORPUSCULAR VOLUME (BEAKER) (test code = 753) 89.4 fL 79. 0-92.2 MEAN CORPUSCULAR HEMOGLOBIN (BEAKER) (test code = 751) 30.9 pg 25.7-32.2 MEAN CORPUSCULAR HEMOGLOBIN CONC (BEAKER) (test code = 752) 34.5 GM/DL 32.3-36.5 RED CELL DISTRIBUTION WIDTH (BEAKER) (test code = 412) 12.8 % 11.6-14.4 PLATELET COUNT (BEAKER) (test code = 756) 132 K/CU MM 150-450 L MEAN PLATELET VOLUME (BEAKER) (test code = 754) 12.0 fL 9.4-12 .4 NUCLEATED RED BLOOD CELLS (BEAKER) (test code = 413) 0 /100 WBC 0 -0 NEUTROPHILS RELATIVE PERCENT (BEAKER) (test code = 429) 63 % LYMPHOCYTES RELATIVE PERCENT (BEAKER) (test code = 430) 25 % MONOCYTES RELATIVE PERCENT (BEAKER) (test code = 431) 9 % EOSINOPHILS RELATIVE PERCENT (BEAKER) (test code = 432) 2 % BASOPHILS RELATIVE PERCENT (BEAKER) (test code = 437) 0 % NEUTROPHILS ABSOLUTE COUNT (BEAKER) (test code = 670) 3.25 K/ L 1.78-5.38 LYMPHOCYTES ABSOLUTE COUNT (BEAKER) (test code = 414) 1.27 K/ L 1.32-3.57 L MONOCYTES ABSOLUTE COUNT (BEAKER) (test code = 415) 0.46 K/ L 0. 30-0.82 EOSINOPHILS ABSOLUTE COUNT (BEAKER) (test code = 416) 0.09 K/ L 0.04-0.54 BASOPHILS ABSOLUTE COUNT (BEAKER) (test code = 417) 0.02 K/ L 0. 01-0.08 IMMATURE GRANULOCYTES-RELATIVE PERCENT (BEAKER) (test code = 2801) 1 % 0-1 RAD, CHEST, 1 VIEW, NON [id number] 15:21:00Reason for exam:->sobShould this be performed at the bedside?->NoFINAL REPORT Two frontal chest images compared to June 29, 2017 Discussion: Heart, lungs, bones, soft tissues unremarkable. No effusion or pneumothorax. Signed: Nico Bernard Verified Date/Time: 08/17/2017 15:21:35 Reading Location: [facility] C0[facility] Consult Reading Room TINE KINASE (CK), TOTAL AND [id number] 13:38:00* Test Item Value Reference Range Interpretation Comments CREATINE KINASE TOTAL (BEAKER) (test code = 380) 223 U/L 29-20 0 H CREATINE KINASE-MB (BEAKER) (test code = 750) 3.0 ng/mL 0.0-6.6 CREATINE KINASE-MB INDEX (BEAKER) (test code = 395) 1.3 % CK-MB Reference Range:<6.7 Normal6.7-10.0 Borderline>10.0 Abnormal TROPONIN [id number] 13:38:00* Test Item Value Reference Range Interpretation Comments TROPONIN I (BEAKER) (test code = 397) 0.01 ng/mL 0.00-0.03 Troponin I (TnI) levels [...] (BNP)2017-08-17 13:34:00* Test Item Value Reference Range Interpretation Comments B-TYPE NATRIURETIC PEPTIDE (BEAKER) (test code = 700) 12 pg/mL 0-100 BASIC METABOLIC [id number] 13:31:00* Test Item Value Reference Range Interpretation Comments SODIUM (BEAKER) (test code = 381) 139 meq/L 136-145 POTASSIUM (BEAKER) (test code = 379) 4.0 meq/L 3.5-5.1 Specimen slightly hemolyzed CHLORIDE (BEAKER) (test code = 382) 105 meq/L 98-107 CO2 (BEAKER) (test code = 355) 22 meq/L 22-29 BLOOD UREA NITROGEN (BEAKER) (test code = 354) 22 mg/dL 7-21 H CREATININE (BEAKER) (test code = 358) 1.48 mg/dL 0.57-1.25 H Specimen slightly hemolyzed GLUCOSE RANDOM (BEAKER) (test code = 652) 188 mg/dL 70-105 H CALCIUM (BEAKER) (test code = 697) 9.8 mg/dL 8.4-10.2 EGFR (BEAKER) (test code = 1092) 51 mL/min/1.73 sq m ESTIMATED GFR IS NOT ACCURATE CREATININE CLEARANCE IN PREDICTING GLOMERULAR FILTRATION RATE. ESTIMATED GFR IS NOT APPLICABLE FOR DIALYSIS PATIENTS. CBC W/PLT COUNT & AUTO [id number] 13:10:00* Test Item Value Reference Range Interpretation Comments WHITE BLOOD CELL COUNT (BEAKER) (test code = 775) 5.6 K/ L 3.5- 10.5 RED BLOOD CELL COUNT (BEAKER) (test code = 761) 4.76 M/ L 4.63-6 .08 HEMOGLOBIN (BEAKER) (test code = 410) 15.5 GM/DL 13.7-17.5 HEMATOCRIT (BEAKER) (test code = 411) 44.2 % 40.1-51.0 MEAN CORPUSCULAR VOLUME (BEAKER) (test code = 753) 92.9 fL 79. 0-92.2 H MEAN CORPUSCULAR HEMOGLOBIN (BEAKER) (test code = 751) 32.6 pg 25.7-32.2 H MEAN CORPUSCULAR HEMOGLOBIN CONC (BEAKER) (test code = 752) 35.1 GM/DL 32.3-36.5 RED CELL DISTRIBUTION WIDTH (BEAKER) (test code = 412) 13.4 % 11.6-14.4 PLATELET COUNT (BEAKER) (test code = 756) 160 K/CU MM 150-450 MEAN PLATELET VOLUME (BEAKER) (test code = 754) 11.6 fL 9.4-12 .4 NUCLEATED RED BLOOD CELLS (BEAKER) (test code = 413) 0 /100 WBC 0 -0 NEUTROPHILS RELATIVE PERCENT (BEAKER) (test code = 429) 55 % LYMPHOCYTES RELATIVE PERCENT (BEAKER) (test code = 430) 32 % MONOCYTES RELATIVE PERCENT (BEAKER) (test code = 431) 10 % EOSINOPHILS RELATIVE PERCENT (BEAKER) (test code = 432) 2 % BASOPHILS RELATIVE PERCENT (BEAKER) (test code = 437) 1 % NEUTROPHILS ABSOLUTE COUNT (BEAKER) (test code = 670) 3.07 K/ L 1.78-5.38 LYMPHOCYTES ABSOLUTE COUNT (BEAKER) (test code = 414) 1.78 K/ L 1.32-3.57 MONOCYTES ABSOLUTE COUNT (BEAKER) (test code = 415) 0.53 K/ L 0. 30-0.82 EOSINOPHILS ABSOLUTE COUNT (BEAKER) (test code = 416) 0.13 K/ L 0.04-0.54 BASOPHILS ABSOLUTE COUNT (BEAKER) (test code = 417) 0.03 K/ L 0. 01-0.08 IMMATURE GRANULOCYTES-RELATIVE PERCENT (BEAKER) (test code = 2801) 1 % 0-1 BLOOD [id number] 00:00:00* Test Item Value Reference Range Interpretation Comments CULTURE (BEAKER) (test code = 1095) No growth in 5 days BLOOD [id number] 00:00:00* Test Item Value Reference Range Interpretation Comments CULTURE (BEAKER) (test code = 1095) No growth in 5 days STOOL CULTURE + SHIGA [id number] 09:52:00* Test Item Value Reference Range Interpretation Comments CULTURE (BEAKER) (test code = 1095) No Salmonella, Swati gella or Campylobacter isolated POCT-GLUCOSE [id number] 13:41:00* Test Item Value Reference Range Interpretation Comments POC-GLUCOSE METER (BEAKER) (test code = 1538) 214 mg/dL 70-110 H TESTED AT [facility] [address] [facility] [address] [id number] 10:17:00* Test Item Value Reference Range Interpretation Comments MAGNESIUM (BEAKER) (test code = 627) 2.4 mg/dL 1.6-2.6 Specimen slightly hemolyzed BASIC METABOLIC [id number] 10:17:00* Test Item Value Reference Range Interpretation Comments SODIUM (BEAKER) (test code = 381) 128 meq/L 136-145 L POTASSIUM (BEAKER) (test code = 379) 3.8 meq/L 3.5-5.1 Specimen slightly hemolyzed CHLORIDE (BEAKER) (test code = 382) 95 meq/L 98-107 L CO2 (BEAKER) (test code = 355) 17 meq/L 22-29 L BLOOD UREA NITROGEN (BEAKER) (test code = 354) 13 mg/dL 7-21 CREATININE (BEAKER) (test code = 358) 0.99 mg/dL 0.57-1.25 Specimen slightly hemolyzed GLUCOSE RANDOM (BEAKER) (test code = 652) 327 mg/dL 70-105 H CALCIUM (BEAKER) (test code = 697) 8.9 mg/dL 8.4-10.2 EGFR (BEAKER) (test code = 1092) 81 mL/min/1.73 sq m ESTIMATED GFR IS NOT ACCURATE CREATININE CLEARANCE IN PREDICTING GLOMERULAR FILTRATION RATE. ESTIMATED GFR IS NOT APPLICABLE FOR DIALYSIS PATIENTS. Specimen slightly ictericSTOOL PATH [id number] 09:35:00* Test Item Value Reference Range Interpretation Comments PATHOGEN EXAM CHARGED (BEAKER) (test code = 2381) Done POCT-GLUCOSE [id number] 08:53:00* Test Item Value Reference Range Interpretation Comments POC-GLUCOSE METER (BEAKER) (test code = 1538) 210 mg/dL 70-110 H TESTED AT [facility] [address] [facility] [address] BLOOD GAS, [id number] 06:11:00* Test Item Value Reference Range Interpretation Comments PH ARTERIAL (BEAKER) (test code = 383) 7.39 7.35-7.45 PCO2 ARTERIAL (BEAKER) (test code = 384) 44 mmHg 35-45 PO2 ARTERIAL (BEAKER) (test code = 385) 66 mmHg 80-90 L O2 SATURATION ARTERIAL (BEAKER) (test code = 386) 93.3 % 96.0 -97.0 L HCO3 ARTERIAL (BEAKER) (test code = 388) 26 mmol/L 21-29 BASE EXCESS ARTERIAL (BEAKER) (test code = 387) 0.8 mmol/L -2.0-3 .0 PATIENT TEMPERATURE (BEAKER) (test code = 1818) 36.7 C FIO2 (BEAKER) (test code = 1819) 21.0 % CBC W/PLT COUNT & AUTO [id number] 06:07:00* Test Item Value Reference Range Interpretation Comments WHITE BLOOD CELL COUNT (BEAKER) (test code = 775) 3.6 K/ L 3.5- 10.5 RED BLOOD CELL COUNT (BEAKER) (test code = 761) 4.47 M/ L 4.63-6 .08 L HEMOGLOBIN (BEAKER) (test code = 410) 15.1 GM/DL 13.7-17.5 HEMATOCRIT (BEAKER) (test code = 411) 39.4 % 40.1-51.0 L MEAN CORPUSCULAR VOLUME (BEAKER) (test code = 753) 88.1 fL 79. 0-92.2 MEAN CORPUSCULAR HEMOGLOBIN (BEAKER) (test code = 751) 33.8 pg 25.7-32.2 H MEAN CORPUSCULAR HEMOGLOBIN CONC (BEAKER) (test code = 752) 38.3 GM/DL 32.3-36.5 H RED CELL DISTRIBUTION WIDTH (BEAKER) (test code = 412) 14.1 % 11.6-14.4 PLATELET COUNT (BEAKER) (test code = 756) 195 K/CU MM 150-450 MEAN PLATELET VOLUME (BEAKER) (test code = 754) 13.7 fL 9.4-12 .4 H NUCLEATED RED BLOOD CELLS (BEAKER) (test code = 413) 0 /100 WBC 0 -0 NEUTROPHILS RELATIVE PERCENT (BEAKER) (test code = 429) 50 % LYMPHOCYTES RELATIVE PERCENT (BEAKER) (test code = 430) 37 % MONOCYTES RELATIVE PERCENT (BEAKER) (test code = 431) 9 % EOSINOPHILS RELATIVE PERCENT (BEAKER) (test code = 432) 4 % BASOPHILS RELATIVE PERCENT (BEAKER) (test code = 437) 1 % NEUTROPHILS ABSOLUTE COUNT (BEAKER) (test code = 670) 1.80 K/ L 1.78-5.38 LYMPHOCYTES ABSOLUTE COUNT (BEAKER) (test code = 414) 1.34 K/ L 1.32-3.57 MONOCYTES ABSOLUTE COUNT (BEAKER) (test code = 415) 0.31 K/ L 0. 30-0.82 EOSINOPHILS ABSOLUTE COUNT (BEAKER) (test code = 416) 0.13 K/ L 0.04-0.54 BASOPHILS ABSOLUTE COUNT (BEAKER) (test code = 417) 0.02 K/ L 0. 01-0.08 IMMATURE GRANULOCYTES-RELATIVE PERCENT (BEAKER) (test code = 2801) 1 % 0-1 POCT-GLUCOSE [id number] 22:14:00* Test Item Value Reference Range Interpretation Comments POC-GLUCOSE METER (BEAKER) (test code = 1538) 243 mg/dL 70-110 H TESTED AT [facility] [address] [address] LACTIC ACID, VENOUS, WHOLE [id number] 18:54:00* Test Item Value Reference Range Interpretation Comments LACTATE BLOOD VENOUS (2) (BEAKER) (test code = 2872) 2.2 mmol/L 0 .5-2.2 Specimen markedly hemolyzed Effective 07/23/2015: Units/Reference Range ChangeNew: 0.5-2.2 mmol/L Previous: 5 -20 mg/dLSpecimen markedly lipemicBLOOD GAS, [id number] 18:51:00* Test Item Value Reference Range Interpretation Comments PH VENOUS (BEAKER) (test code = 701) 7.37 7.32-7.42 PCO2 VENOUS (BEAKER) (test code = 755) 51 mmHg 41-51 PO2 VENOUS (BEAKER) (test code = 702) 17 mmHg 25-40 L O2 SATURATION VENOUS (BEAKER) (test code = 703) 22.3 % 40.0-7 0.0 L HCO3 VENOUS (BEAKER) (test code = 705) 29 mmol/L 21-29 BASE EXCESS VENOUS (BEAKER) (test code = 704) 2.7 mmol/L -2.0-3.0 PATIENT TEMPERATURE (BEAKER) (test code = 1818) 37.0 C KETONE, [id number] 18:42:00* Test Item Value Reference Range Interpretation Comments KETONES, BLOOD (BEAKER) (test code = 1103) 0.3 mmol/L <0.4 BASIC METABOLIC [id number] 17:31:00* Test Item Value Reference Range Interpretation Comments SODIUM (BEAKER) (test code = 381) 129 meq/L 136-145 L POTASSIUM (BEAKER) (test code = 379) 4.6 meq/L 3.5-5.1 Specimen markedly hemolyzed CHLORIDE (BEAKER) (test code = 382) 98 meq/L 98-107 CO2 (BEAKER) (test code = 355) 9 meq/L 22-29 LL BLOOD UREA NITROGEN (BEAKER) (test code = 354) 11 mg/dL 7-21 CREATININE (BEAKER) (test code = 358) 0.96 mg/dL 0.57-1.25 Specimen markedly hemolyzed GLUCOSE RANDOM (BEAKER) (test code = 652) 250 mg/dL 70-105 H CALCIUM (BEAKER) (test code = 697) 8.9 mg/dL 8.4-10.2 EGFR (BEAKER) (test code = 1092) 84 mL/min/1.73 sq m ESTIMATED GFR IS NOT ACCURATE CREATININE CLEARANCE IN PREDICTING GLOMERULAR FILTRATION RATE. ESTIMATED GFR IS NOT APPLICABLE FOR DIALYSIS PATIENTS. 5th sample drawn for this patient today.[id number] 17:20:00* Test Item Value Reference Range Interpretation Comments MAGNESIUM (BEAKER) (test code = 627) 2.8 mg/dL 1.6-2.6 H Specimen markedly hemolyzed HEPATIC FUNCTION [id number] 17:20:00* Test Item Value Reference Range Interpretation Comments TOTAL PROTEIN (BEAKER) (test code = 770) 7.6 gm/dL 6.0-8.3 Specimen markedly hemolyzed ALBUMIN (BEAKER) (test code = 1145) 3.7 g/dL 3.5-5.0 Specimen markedly hemolyzed BILIRUBIN TOTAL (BEAKER) (test code = 377) 0.6 mg/dL 0.2-1.2 Specimen markedly hemolyzed BILIRUBIN DIRECT (BEAKER) (test code = 706) 0.1 mg/dL 0.1-0.5 Specimen markedly hemolyzed ALKALINE PHOSPHATASE (BEAKER) (test code = 346) 55 U/L 40-150 AST (SGOT) (BEAKER) (test code = 353) 47 U/L 5-34 H Specimen markedly hemolyzed ALT (SGPT) (BEAKER) (test code = 347) 32 U/L 6-55 Specimen markedly hemolyzed Specimen moderately [id number] 17:20:00* Test Item Value Reference Range Interpretation Comments LIPASE (BEAKER) (test code = 749) 35 U/L 8-78 POCT-GLUCOSE [id number] 17:14:00* Test Item Value Reference Range Interpretation Comments POC-GLUCOSE METER (BEAKER) (test code = 1538) 224 mg/dL 70-110 H TESTED AT [facility] [address] [address] POCT-GLUCOSE [id number] 14:03:00* Test Item Value Reference Range Interpretation Comments POC-GLUCOSE METER (BEAKER) (test code = 1538) 227 mg/dL 70-110 H TESTED AT [facility] [address] [address] URINE [id number] 11:05:00* Test Item Value Reference Range Interpretation Comments CULTURE (BEAKER) (test code = 1095) >100,000 col/mL skin omar CBC W/PLT COUNT & AUTO [id number] 10:22:00* Test Item Value Reference Range Interpretation Comments WHITE BLOOD CELL COUNT (BEAKER) (test code = 775) 3.5 K/ L 3.5- 10.5 RED BLOOD CELL COUNT (BEAKER) (test code = 761) 4.27 M/ L 4.63-6 .08 L HEMOGLOBIN (BEAKER) (test code = 410) 15.0 GM/DL 13.7-17.5 HEMATOCRIT (BEAKER) (test code = 411) 38.3 % 40.1-51.0 L MEAN CORPUSCULAR VOLUME (BEAKER) (test code = 753) 89.7 fL 79. 0-92.2 MEAN CORPUSCULAR HEMOGLOBIN (BEAKER) (test code = 751) 35.1 pg 25.7-32.2 H MEAN CORPUSCULAR HEMOGLOBIN CONC (BEAKER) (test code = 752) 39.2 GM/DL 32.3-36.5 H RED CELL DISTRIBUTION WIDTH (BEAKER) (test code = 412) 13.3 % 11.6-14.4 PLATELET COUNT (BEAKER) (test code = 756) 124 K/CU MM 150-450 L MEAN PLATELET VOLUME (BEAKER) (test code = 754) 12.4 fL 9.4-12 .4 NUCLEATED RED BLOOD CELLS (BEAKER) (test code = 413) 0 /100 WBC 0 -0 NEUTROPHILS RELATIVE PERCENT (BEAKER) (test code = 429) 51 % LYMPHOCYTES RELATIVE PERCENT (BEAKER) (test code = 430) 37 % MONOCYTES RELATIVE PERCENT (BEAKER) (test code = 431) 8 % EOSINOPHILS RELATIVE PERCENT (BEAKER) (test code = 432) 4 % BASOPHILS RELATIVE PERCENT (BEAKER) (test code = 437) 1 % NEUTROPHILS ABSOLUTE COUNT (BEAKER) (test code = 670) 1.76 K/ L 1.78-5.38 L LYMPHOCYTES ABSOLUTE COUNT (BEAKER) (test code = 414) 1.29 K/ L 1.32-3.57 L MONOCYTES ABSOLUTE COUNT (BEAKER) (test code = 415) 0.26 K/ L 0. 30-0.82 L EOSINOPHILS ABSOLUTE COUNT (BEAKER) (test code = 416) 0.14 K/ L 0.04-0.54 BASOPHILS ABSOLUTE COUNT (BEAKER) (test code = 417) 0.02 K/ L 0. 01-0.08 IMMATURE GRANULOCYTES-RELATIVE PERCENT (BEAKER) (test code = 2801) 0 % 0-1 (MANUAL DIFFERENTIAL)2017-07-01 10:22:00* Test Item Value Reference Range Interpretation Comments TOTAL COUNTED (BEAKER) (test code = 1351) WBC MORPHOLOGY (BEAKER) (test code = 487) Normal PLT MORPHOLOGY (BEAKER) (test code = 486) Normal RBC MORPHOLOGY (BEAKER) (test code = 762) Normal POCT-GLUCOSE [id number] 08:09:00* Test Item Value Reference Range Interpretation Comments POC-GLUCOSE METER (BEAKER) (test code = 1538) 249 mg/dL 70-110 H TESTED AT [facility] [address] [facility] [address] LACTIC ACID, VENOUS, WHOLE [id number] 06:03:00* Test Item Value Reference Range Interpretation Comments LACTATE BLOOD VENOUS (2) (BEAKER) (test code = 2872) 1.5 mmol/L 0 .5-2.2 Specimen moderately hemolyzed Effective 07/23/2015: Units/Reference Range ChangeNew: 0.5-2.2 mmol/L Previous: 5 -20 mg/dLSpecimen slightly ictericSpecimen markedly lipemicC. DIFFICILE GDH [id number] 00:40:00* Test Item Value Reference Range Interpretation Comments CDT TOXIN (test code = 1254767354) Negative Negative CDT GDH ANTIGEN (test code = 3340478555) Negative Negative No indication of Clostridium difficile infection and no colonization. Discontinue enteric isolation and therapy. Testing performed by Ale[employer] Rapid Cassette Assay. For GDH, published sensitivity of the assay is 98.7% compared to cytotoxicity testing. For Toxin AB, published sensitivity is 87.8% and specificity 99.4% compared to cytotoxicity testing.Ve rification of kit performance was done by the [facility] Microbiology Lab prior to cl inical use.Testing performed by Ale[employer] Rapid Cassette Assay. For GDH, published sensitivity of the assay is 98.7% compared to cytotoxicity testing. For Toxin A B, published sensitivity is 87.8% and specificity 99.4% compared to cytotoxicity testing.Verification of kit performance was done by the [facility] Microbiology Lab prior to clinical use.POCT-GLUCOSE [id number] 22:02:00* Test Item Value Reference Range Interpretation Comments POC-GLUCOSE METER (BEAKER) (test code = 1538) 298 mg/dL 70-110 H TESTED AT [place] [id number] [facility] [address] HEMOGLOBIN [id number] 17:59:00* Test Item Value Reference Range Interpretation Comments HEMOGLOBIN A1C (BEAKER) (test code = 368) 13.7 % 4.3-6.1 H POCT-GLUCOSE [id number] 17:37:00* Test Item Value Reference Range Interpretation Comments POC-GLUCOSE METER (BEAKER) (test code = 1538) 258 mg/dL 70-110 H TESTED AT [address] [address] POCT-GLUCOSE [id number] 13:39:00* Test Item Value Reference Range Interpretation Comments POC-GLUCOSE METER (BEAKER) (test code = 1538) 247 mg/dL 70-110 H TESTED AT [address] [address] LIPID [id number] 13:27:00* Test Item Value Reference Range Interpretation Comments TRIGLYCERIDES (BEAKER) (test code = 540) 5383 mg/dL Specimen markedly hemolyzed CHOLESTEROL (BEAKER) (test code = 631) 451 mg/dL Specimen markedly hemolyzed HDL CHOLESTEROL (BEAKER) (test code = 976) 12 mg/dL Calculated LDL not valid if triglyceride >400 mg/dLTriglyceride Reference Range: Low Risk <150 Borderline 150-199 High Risk 200-499 Very High Risk >=500Cholesterol Reference Range: Low Risk <200 Borderline 200-239 High Risk >240HDL Cholesterol Reference Range: Low Risk >=60 High Risk <40LDL Cholesterol Reference Range: Optimal <100 Near Optimal 100-129 Borderline 130-159 High 160-189 Very High >=190 Specimen markedly lipemicPOCT-GLUCOSE [id number] 12:26:00* Test Item Value Reference Range Interpretation Comments POC-GLUCOSE METER (BEAKER) (test code = 1538) 266 mg/dL 70-110 H TESTED AT [address] [address] POCT-GLUCOSE [id number] 09:26:00* Test Item Value Reference Range Interpretation Comments POC-GLUCOSE METER (BEAKER) (test code = 1538) 290 mg/dL 70-110 H TESTED AT [facility] [address] [facility] [address] POCT-GLUCOSE [id number] 08:13:00* Test Item Value Reference Range Interpretation Comments POC-GLUCOSE METER (BEAKER) (test code = 1538) 285 mg/dL 70-110 H TESTED AT [facility] [address] [facility] [address] BASIC METABOLIC [id number] 03:41:00* Test Item Value Reference Range Interpretation Comments SODIUM (BEAKER) (test code = 381) 128 meq/L 136-145 L POTASSIUM (BEAKER) (test code = 379) 4.2 meq/L 3.5-5.1 Specimen markedly hemolyzed CHLORIDE (BEAKER) (test code = 382) 98 meq/L 98-107 CO2 (BEAKER) (test code = 355) < meq/L 22-29 BLOOD UREA NITROGEN (BEAKER) (test code = 354) 20 mg/dL 7-21 CREATININE (BEAKER) (test code = 358) 1.08 mg/dL 0.57-1.25 Specimen markedly hemolyzed GLUCOSE RANDOM (BEAKER) (test code = 652) 295 mg/dL 70-105 H CALCIUM (BEAKER) (test code = 697) 8.7 mg/dL 8.4-10.2 EGFR (BEAKER) (test code = 1092) 74 mL/min/1.73 sq m ESTIMATED GFR IS NOT ACCURATE CREATININE CLEARANCE IN PREDICTING GLOMERULAR FILTRATION RATE. ESTIMATED GFR IS NOT APPLICABLE FOR DIALYSIS PATIENTS. HEPATIC FUNCTION [id number] 03:38:00* Test Item Value Reference Range Interpretation Comments TOTAL PROTEIN (BEAKER) (test code = 770) 11.6 gm/dL 6.0-8.3 H Specimen markedly hemolyzed ALBUMIN (BEAKER) (test code = 1145) 3.7 g/dL 3.5-5.0 Specimen markedly hemolyzed BILIRUBIN TOTAL (BEAKER) (test code = 377) 0.4 mg/dL 0.2-1.2 Specimen markedly hemolyzed BILIRUBIN DIRECT (BEAKER) (test code = 706) < mg/dL 0.1-0.5 L Specimen markedly hemolyzed ALKALINE PHOSPHATASE (BEAKER) (test code = 346) 70 U/L 40-150 AST (SGOT) (BEAKER) (test code = 353) 37 U/L 5-34 H Specimen markedly hemolyzed ALT (SGPT) (BEAKER) (test code = 347) 20 U/L 6-55 Specimen markedly hemolyzed Specimen markedly lipemicLACTIC ACID, VENOUS, WHOLE [id number] 02:33:00* Test Item Value Reference Range Interpretation Comments LACTATE BLOOD VENOUS (2) (BEAKER) (test code = 2872) 1.2 mmol/L 0 .5-2.2 Specimen slightly hemolyzed Effective 07/23/2015: Units/Reference Range ChangeNew: 0.5-2.2 mmol/L Previous: 5 -20 mg/dLSpecimen markedly [id number] 01:37:00* Test Item Value Reference Range Interpretation Comments MAGNESIUM (BEAKER) (test code = 627) 4.4 mg/dL 1.6-2.6 H Specimen markedly hemolyzed [id number] 01:37:00* Test Item Value Reference Range Interpretation Comments PHOSPHORUS (BEAKER) (test code = 604) 2.2 mg/dL 2.3-4.7 L Specimen markedly hemolyzed [id number] 01:37:00* Test Item Value Reference Range Interpretation Comments LIPASE (BEAKER) (test code = 749) 73 U/L 8-78 POCT-GLUCOSE [id number] 23:27:00* Test Item Value Reference Range Interpretation Comments POC-GLUCOSE METER (BEAKER) (test code = 1538) 329 mg/dL 70-110 H Notified JENNY RESENDEZ/TESTED AT [address] [address] LACTIC ACID, VENOUS, WHOLE [id number] 22:03:00* Test Item Value Reference Range Interpretation Comments LACTATE BLOOD VENOUS (2) (BEAKER) (test code = 2872) 1.5 mmol/L 0 .5-2.2 Specimen slightly hemolyzed Effective 07/23/2015: Units/Reference Range ChangeNew: 0.5-2.2 mmol/L Previous: 5 -20 mg/dLSpecimen markedly lipemicCT, [id number] 21:51:00FINAL REPORT CT, ABDOMEN \\T\\ PELVIS, WITH [...] the abdomen or pel vis. Signed: Sharona Interiano Verified Date/Time: 06/29/2017 21:51:53 R eading Location: [address] Transitional Reading Room Electronically sign ed [...] Juarez Verified Date/Time: 06/29/2017 19:36:58 Reading Location: [facility] Radiology Reading Room [id number] 19:35:00* Test Item Value Reference Range Interpretation Comments MAGNESIUM (BEAKER) (test code = 627) 5.7 mg/dL 1.6-2.6 HH Specimen markedly hemolyzed BASIC METABOLIC [id number] 19:34:00* Test Item Value Reference Range Interpretation Comments SODIUM (BEAKER) (test code = 381) 129 meq/L 136-145 L POTASSIUM (BEAKER) (test code = 379) 4.3 meq/L 3.5-5.1 Specimen markedly hemolyzed CHLORIDE (BEAKER) (test code = 382) 95 meq/L 98-107 L CO2 (BEAKER) (test code = 355) < meq/L 22-29 BLOOD UREA NITROGEN (BEAKER) (test code = 354) 21 mg/dL 7-21 CREATININE (BEAKER) (test code = 358) 1.12 mg/dL 0.57-1.25 Specimen markedly hemolyzed GLUCOSE RANDOM (BEAKER) (test code = 652) 381 mg/dL 70-105 H CALCIUM (BEAKER) (test code = 697) 9.6 mg/dL 8.4-10.2 EGFR (BEAKER) (test code = 1092) 71 mL/min/1.73 sq m ESTIMATED GFR IS NOT ACCURATE CREATININE CLEARANCE IN PREDICTING GLOMERULAR FILTRATION RATE. ESTIMATED GFR IS NOT APPLICABLE FOR DIALYSIS PATIENTS. [id number] 19:33:00* Test Item Value Reference Range Interpretation Comments PHOSPHORUS (BEAKER) (test code = 604) < mg/dL 2.3-4.7 Specimen markedly hemolyzed LACTIC ACID, VENOUS, WHOLE [id number] 19:30:00* Test Item Value Reference Range Interpretation Comments LACTATE BLOOD VENOUS (2) (BEAKER) (test code = 2872) 2.6 mmol/L 0 .5-2.2 H Specimen slightly hemolyzed Effective 07/23/2015: Units/Reference Range ChangeNew: 0.5-2.2 mmol/L Previous: 5 -20 mg/dLSpecimen markedly lipemicPOCT-GLUCOSE [id number] 18:10:00* Test Item Value Reference Range Interpretation Comments POC-GLUCOSE METER (BEAKER) (test code = 1538) 439 mg/dL 70-110 HH TESTED AT [facility] [address] [facility] [address] [address] [id number] 18:03:00* Test Item Value Reference Range Interpretation Comments LIPASE (BEAKER) (test code = 749) > U/L 8-78 H CREATINE KINASE (CK), TOTAL AND [id number] 17:42:00* Test Item Value Reference Range Interpretation Comments CREATINE KINASE TOTAL (BEAKER) (test code = 380) 140 U/L 29-20 0 CREATINE KINASE-MB (BEAKER) (test code = 750) 2.2 ng/mL 0.0-6.6 CREATINE KINASE-MB INDEX (BEAKER) (test code = 395) 1.6 % CK-MB Reference Range:<6.7 Normal6.7-10.0 Borderline>10.0 Abnormal TROPONIN [id number] 17:36:00* Test Item Value Reference Range Interpretation Comments TROPONIN I (BEAKER) (test code = 397) 0.02 ng/mL 0.00-0.03 Troponin I (TnI) levels [...] acute neurological disease, and per sistent tachyarrhythmia.POCT-GLUCOSE [id number] 16:55:00* Test Item Value Reference Range Interpretation Comments POC-GLUCOSE METER (BEAKER) (test code = 1538) > mg/dL 70-110 HH OUTSIDE MEASURING RANGETESTED AT [facility] [address] [facility] [address] CBC W/PLT COUNT & AUTO [id number] 16:52:00* Test Item Value Reference Range Interpretation Comments WHITE BLOOD CELL COUNT (BEAKER) (test code = 775) 4.8 K/ L 3.5- 10.5 RED BLOOD CELL COUNT (BEAKER) (test code = 761) 4.29 M/ L 4.63-6 .08 L HEMOGLOBIN (BEAKER) (test code = 410) 13.8 GM/DL 13.7-17.5 HEMATOCRIT (BEAKER) (test code = 411) 40.5 % 40.1-51.0 MEAN CORPUSCULAR VOLUME (BEAKER) (test code = 753) 94.4 fL 79. 0-92.2 H MEAN CORPUSCULAR HEMOGLOBIN (BEAKER) (test code = 751) 32.2 pg 25.7-32.2 MEAN CORPUSCULAR HEMOGLOBIN CONC (BEAKER) (test code = 752) 34.1 GM/DL 32.3-36.5 RED CELL DISTRIBUTION WIDTH (BEAKER) (test code = 412) 13.6 % 11.6-14.4 PLATELET COUNT (BEAKER) (test code = 756) 146 K/CU MM 150-450 L MEAN PLATELET VOLUME (BEAKER) (test code = 754) 12.1 fL 9.4-12 .4 NUCLEATED RED BLOOD CELLS (BEAKER) (test code = 413) 1 /100 WBC 0 -0 H IMMATURE GRANULOCYTES-RELATIVE PERCENT (BEAKER) (test code = 2801) 1 % 0-1 Washed RBC was done due to lipemia (High MCHC).(MANUAL DIFFERENTIAL)2017-06-29 16:52:00* Test Item Value Reference Range Interpretation Comments NEUTROPHILS - REL (DIFF) (BEAKER) (test code = 1359) 56 % LYMPHOCYTES - REL (DIFF) (BEAKER) (test code = 1360) 31 % MONOCYTES - REL (DIFF) (BEAKER) (test code = 1361) 6 % EOSINOPHILS - REL (DIFF) (BEAKER) (test code = 1362) 2 % BASOPHILS - REL (DIFF) (BEAKER) (test code = 1363) 3 % PROMYELOCYTES-REL (DIFF) (BEAKER) (test code = 259) 1 % 0- 0 H ATYPICAL LYMPHOCYTE - REL (DIFF) (BEAKER) (test code = 260) 1 % 0-0 H NEUTROPHILS - ABS (DIFF) (BEAKER) (test code = 1365) 2.69 K/ L 1 .80-8.00 LYMPHOCYTES - ABS (DIFF) (BEAKER) (test code = 1366) 1.49 K/ L 1 .48-4.50 MONOCYTES - ABS (DIFF) (BEAKER) (test code = 1367) 0.29 K/ L 0.0 0-1.30 EOSINOPHILS - ABS (DIFF) (BEAKER) (test code = 1368) 0.10 K/ L 0 .00-0.50 BASOPHILS - ABS (DIFF) (BEAKER) (test code = 1369) 0.14 K/ L 0.0 0-0.20 PROMYELOCYTES - ABS (DIFF) (BEAKER) (test code = 262) 0.05 K/ L 0.00-0.00 H ATYPICAL LYMPHOCYTES - ABS (DIFF) (BEAKER) (test code = 263) 0.05 K/ L 0.00-0.00 H TOTAL COUNTED (BEAKER) (test code = 1351) 100 WBC MORPHOLOGY (BEAKER) (test code = 487) Normal PLT MORPHOLOGY (BEAKER) (test code = 486) Normal SPHEROCYTES (BEAKER) (test code = 768) 1+ few COMPREHENSIVE METABOLIC [id number] 16:41:00* Test Item Value Reference Range Interpretation Comments TOTAL PROTEIN (BEAKER) (test code = 770) 12.8 gm/dL 6.0-8.3 H Specimen markedly hemolyzed ALBUMIN (BEAKER) (test code = 1145) 4.0 g/dL 3.5-5.0 Specimen markedly hemolyzed ALKALINE PHOSPHATASE (BEAKER) (test code = 346) 102 U/L 40-150 BILIRUBIN TOTAL (BEAKER) (test code = 377) 0.3 mg/dL 0.2-1.2 Specimen markedly hemolyzed SODIUM (BEAKER) (test code = 381) 121 meq/L 136-145 L POTASSIUM (BEAKER) (test code = 379) 5.5 meq/L 3.5-5.1 H Specimen markedly hemolyzed CHLORIDE (BEAKER) (test code = 382) 93 meq/L 98-107 L CO2 (BEAKER) (test code = 355) 19 meq/L 22-29 L BLOOD UREA NITROGEN (BEAKER) (test code = 354) 24 mg/dL 7-21 H CREATININE (BEAKER) (test code = 358) 1.56 mg/dL 0.57-1.25 H Specimen markedly hemolyzed GLUCOSE RANDOM (BEAKER) (test code = 652) 728 mg/dL 70-105 HH CALCIUM (BEAKER) (test code = 697) 9.3 mg/dL 8.4-10.2 AST (SGOT) (BEAKER) (test code = 353) 47 U/L 5-34 H Specimen markedly hemolyzed ALT (SGPT) (BEAKER) (test code = 347) 28 U/L 6-55 Specimen markedly hemolyzed EGFR (BEAKER) (test code = 1092) 48 mL/min/1.73 sq m ESTIMATED GFR IS NOT ACCURATE CREATININE CLEARANCE IN PREDICTING GLOMERULAR FILTRATION RATE. ESTIMATED GFR IS NOT APPLICABLE FOR DIALYSIS PATIENTS. Specimen markedly lipemicRAD, CHEST, 1 VIEW, NON [id number] 16:35:00Reason for exam:->FEVERReason for exam:->EMESISReason for exam:->DIARRHEAShould this be performed at the bedside?->YesFINAL REPORT Comparison: 04/21/2017 TECHNIQUE: Single view of the chest FINDINGS: Lung volumes are low, grossly clear. Cardiac silhouette is within normal limits. Aortic calcifications are seen. No acute skeletal abnormality. Signed: Miguel Sahni MDReport Verified Date/Time: 06/29/2017 16:35:46 Reading Location: [facility] Reading Room B-TYPE NATRIURETIC FACTOR (BNP)2017-06-29 16:32:00* Test Item Value Reference Range Interpretation Comments B-TYPE NATRIURETIC PEPTIDE (BEAKER) (test code = 700) < pg/mL 0-100 POCT-LACTIC ACID, [id number] 15:48:00* Test Item Value Reference Range Interpretation Comments POC-LACTIC ACID, VENOUS (BEAKER) (test code = 2805) 2.4 mmol/L 0. 9-1.7 H TESTED AT [facility] [address] [facility] [address] [address] BLOOD GAS, [id number] 15:43:00* Test Item Value Reference Range Interpretation Comments PH VENOUS (BEAKER) (test code = 701) 7.38 7.32-7.42 PCO2 VENOUS (BEAKER) (test code = 755) 46 mmHg 41-51 PO2 VENOUS (BEAKER) (test code = 702) 34 mmHg 25-40 O2 SATURATION VENOUS (BEAKER) (test code = 703) 63.2 % 40.0-7 0.0 HCO3 VENOUS (BEAKER) (test code = 705) 26 mmol/L 21-29 BASE EXCESS VENOUS (BEAKER) (test code = 704) 0.8 mmol/L -2.0-3.0 PATIENT TEMPERATURE (BEAKER) (test code = 1818) 37.0 C FIO2 (BEAKER) (test code = 1819) 21.0 % URINALYSIS W/ REFLEX URINE [id number] 15:28:00* Test Item Value Reference Range Interpretation Comments COLOR (BEAKER) (test code = 470) Light Yellow CLARITY (BEAKER) (test code = 469) Clear SPECIFIC GRAVITY UA (BEAKER) (test code = 468) 1.019 1.001-1 .035 PH UA (BEAKER) (test code = 467) 6.0 5.0-8.0 PROTEIN UA (BEAKER) (test code = 464) 10 mg/dL Negative A GLUCOSE UA (BEAKER) (test code = 365) >1000 mg/dL Negative A KETONES UA (BEAKER) (test code = 371) Negative Negative BILIRUBIN UA (BEAKER) (test code = 462) Negative Negative BLOOD UA (BEAKER) (test code = 461) Negative Negative NITRITE UA (BEAKER) (test code = 465) Negative Negative LEUKOCYTE ESTERASE UA (BEAKER) (test code = 466) Negative Negat adán UROBILINOGEN UA (BEAKER) (test code = 463) 0.2 mg/dL 0.2-1.0 RBC UA (BEAKER) (test code = 519) 0 /HPF WBC UA (BEAKER) (test code = 520) < /HPF SQUAMOUS EPITHELIAL (BEAKER) (test code = 516) < /HPF SOURCE(BEAKER) (test code = 2795) KETONE, [id number] 15:16:00* Test Item Value Reference Range Interpretation Comments KETONES, BLOOD (BEAKER) (test code = 1103) 0.1 mmol/L <0.4 POCT-GLUCOSE [id number] 14:56:00* Test Item Value Reference Range Interpretation Comments POC-GLUCOSE METER (BEAKER) (test code = 1538) > mg/dL 70-110 HH OUTSIDE MEASURING RANGETESTED AT [facility] [address] [address] [address] RAD, CHEST, 1 VIEW, NON [id number] 14:57:00Reason for exam:->CHEST PAINFINAL REPORT TECHNIQUE: Frontal chest radiograph dated . CLINICAL HISTORY: Chest pain COMPARISON STUDY: Chest radiograph dated IMPRESSION:Lungs are clear. No pleural effusion or pneumothorax. Cardiom ediastinal silhouette is normal in size. No pulmonary edema. No fracture. Degene rative changes are seen in the spine. Signed: Rex Fontenot Yareli Sneed ed Date/Time: 04/21/2017 14:57:39 Reading Location: [facility] Radiology Reading Room TINE KINASE (CK), TOTAL AND [id number] 11:57:00* Test Item Value Reference Range Interpretation Comments CREATINE KINASE TOTAL (BEAKER) (test code = 380) 398 U/L 29-20 0 H CREATINE KINASE-MB (BEAKER) (test code = 750) 3.9 ng/mL 0.0-6.6 CREATINE KINASE-MB INDEX (BEAKER) (test code = 395) 1.0 % CK-MB Reference Range:<6.7 Normal6.7-10.0 Borderline>10.0 Abnormal TROPONIN [id number] 11:57:00* Test Item Value Reference Range Interpretation Comments TROPONIN I (BEAKER) (test code = 397) 0.02 ng/mL 0.00-0.03 Troponin I (TnI) levels [...] (BNP)2017-04-21 11:52:00* Test Item Value Reference Range Interpretation Comments B-TYPE NATRIURETIC PEPTIDE (BEAKER) (test code = 700) 13 pg/mL 0-100 [id number] 11:49:00* Test Item Value Reference Range Interpretation Comments MAGNESIUM (BEAKER) (test code = 627) 1.5 mg/dL 1.6-2.6 L BASIC METABOLIC [id number] 11:49:00* Test Item Value Reference Range Interpretation Comments SODIUM (BEAKER) (test code = 381) 139 meq/L 136-145 POTASSIUM (BEAKER) (test code = 379) 3.1 meq/L 3.5-5.1 L CHLORIDE (BEAKER) (test code = 382) 102 meq/L 98-107 CO2 (BEAKER) (test code = 355) 26 meq/L 22-29 BLOOD UREA NITROGEN (BEAKER) (test code = 354) 22 mg/dL 7-21 H CREATININE (BEAKER) (test code = 358) 1.15 mg/dL 0.57-1.25 GLUCOSE RANDOM (BEAKER) (test code = 652) 255 mg/dL 70-105 H CALCIUM (BEAKER) (test code = 697) 9.2 mg/dL 8.4-10.2 EGFR (BEAKER) (test code = 1092) 68 mL/min/1.73 sq m ESTIMATED GFR IS NOT ACCURATE CREATININE CLEARANCE IN PREDICTING GLOMERULAR FILTRATION RATE. ESTIMATED GFR IS NOT APPLICABLE FOR DIALYSIS PATIENTS. PT/[id number] 11:43:00* Test Item Value Reference Range Interpretation Comments PROTIME (BEAKER) (test code = 759) 14.5 seconds 11.7-14.7 INR (BEAKER) (test code = 370) 1.1 <=5.9 PARTIAL THROMBOPLASTIN TIME (BEAKER) (test code = 760) 24.5 seconds 22.5-36.0 RECOMMENDED COUMADIN/WARFARIN INR THERAPY RANGESSTANDARD DOSE: 2.0 - 3.0 Inclu josé: PROPHYLAXIS for venous thrombosis, systemic embolization; TREATMENT for angelika ous thrombosis and/or pulmonary embolus.HIGH RISK: Target INR is 2.5-3.5 for pat ients with mechanical heart valves.CBC W/PLT COUNT & AUTO [id number] 11:34:00* Test Item Value Reference Range Interpretation Comments WHITE BLOOD CELL COUNT (BEAKER) (test code = 775) 6.5 K/ L 3.5- 10.5 RED BLOOD CELL COUNT (BEAKER) (test code = 761) 5.01 M/ L 4.63-6 .08 HEMOGLOBIN (BEAKER) (test code = 410) 15.5 GM/DL 13.7-17.5 HEMATOCRIT (BEAKER) (test code = 411) 43.7 % 40.1-51.0 MEAN CORPUSCULAR VOLUME (BEAKER) (test code = 753) 87.2 fL 79. 0-92.2 MEAN CORPUSCULAR HEMOGLOBIN (BEAKER) (test code = 751) 30.9 pg 25.7-32.2 MEAN CORPUSCULAR HEMOGLOBIN CONC (BEAKER) (test code = 752) 35.5 GM/DL 32.3-36.5 RED CELL DISTRIBUTION WIDTH (BEAKER) (test code = 412) 12.9 % 11.6-14.4 PLATELET COUNT (BEAKER) (test code = 756) 157 K/CU MM 150-450 MEAN PLATELET VOLUME (BEAKER) (test code = 754) 11.9 fL 9.4-12 .4 NUCLEATED RED BLOOD CELLS (BEAKER) (test code = 413) 0 /100 WBC 0 -0 NEUTROPHILS RELATIVE PERCENT (BEAKER) (test code = 429) 65 % LYMPHOCYTES RELATIVE PERCENT (BEAKER) (test code = 430) 24 % MONOCYTES RELATIVE PERCENT (BEAKER) (test code = 431) 9 % EOSINOPHILS RELATIVE PERCENT (BEAKER) (test code = 432) 1 % BASOPHILS RELATIVE PERCENT (BEAKER) (test code = 437) 0 % NEUTROPHILS ABSOLUTE COUNT (BEAKER) (test code = 670) 4.24 K/ L 1.78-5.38 LYMPHOCYTES ABSOLUTE COUNT (BEAKER) (test code = 414) 1.56 K/ L 1.32-3.57 MONOCYTES ABSOLUTE COUNT (BEAKER) (test code = 415) 0.57 K/ L 0. 30-0.82 EOSINOPHILS ABSOLUTE COUNT (BEAKER) (test code = 416) 0.06 K/ L 0.04-0.54 BASOPHILS ABSOLUTE COUNT (BEAKER) (test code = 417) 0.02 K/ L 0. 01-0.08 IMMATURE GRANULOCYTES-RELATIVE PERCENT (BEAKER) (test code = 2801) 1 % 0-1 PANCREATIC ELASTASE, [id number] 13:46:00* Test Item Value Reference Range Interpretation Comments SCAN RESULT (test code = 8710585) POCT-GLUCOSE [id number] 09:25:00* Test Item Value Reference Range Interpretation Comments POC-GLUCOSE METER (BEAKER) (test code = 1538) 146 mg/dL 70-110 H TESTED AT [facility] [address] [facility] [address] [id number] 05:58:00* Test Item Value Reference Range Interpretation Comments MAGNESIUM (BEAKER) (test code = 627) 1.4 mg/dL 1.6-2.6 L BASIC METABOLIC [id number] 05:58:00* Test Item Value Reference Range Interpretation Comments SODIUM (BEAKER) (test code = 381) 143 meq/L 136-145 POTASSIUM (BEAKER) (test code = 379) 3.3 meq/L 3.5-5.1 L CHLORIDE (BEAKER) (test code = 382) 112 meq/L 98-107 H CO2 (BEAKER) (test code = 355) 21 meq/L 22-29 L BLOOD UREA NITROGEN (BEAKER) (test code = 354) 6 mg/dL 7-21 L CREATININE (BEAKER) (test code = 358) 0.82 mg/dL 0.57-1.25 GLUCOSE RANDOM (BEAKER) (test code = 652) 135 mg/dL 70-105 H CALCIUM (BEAKER) (test code = 697) 8.5 mg/dL 8.4-10.2 EGFR (BEAKER) (test code = 1092) 102 mL/min/1.73 sq m ESTIMATED GFR IS NOT ACCURATE CREATININE CLEARANCE IN PREDICTING GLOMERULAR FILTRATION RATE. ESTIMATED GFR IS NOT APPLICABLE FOR DIALYSIS PATIENTS. POCT-GLUCOSE [id number] 21:22:00* Test Item Value Reference Range Interpretation Comments POC-GLUCOSE METER (BEAKER) (test code = 1538) 219 mg/dL 70-110 H TESTED AT [place] [id number] [place] [id number] POCT-GLUCOSE [id number] 16:32:00* Test Item Value Reference Range Interpretation Comments POC-GLUCOSE METER (BEAKER) (test code = 1538) 184 mg/dL 70-110 H TESTED AT [place] [id number] [facility] [address] POCT-GLUCOSE [id number] 14:08:00* Test Item Value Reference Range Interpretation Comments POC-GLUCOSE METER (BEAKER) (test code = 1538) 168 mg/dL 70-110 H TESTED AT [place] [id number] [facility] [address] BASIC METABOLIC [id number] 08:54:00* Test Item Value Reference Range Interpretation Comments SODIUM (BEAKER) (test code = 381) 142 meq/L 136-145 POTASSIUM (BEAKER) (test code = 379) 3.2 meq/L 3.5-5.1 L CHLORIDE (BEAKER) (test code = 382) 110 meq/L 98-107 H CO2 (BEAKER) (test code = 355) 24 meq/L 22-29 BLOOD UREA NITROGEN (BEAKER) (test code = 354) 4 mg/dL 7-21 L CREATININE (BEAKER) (test code = 358) 0.79 mg/dL 0.57-1.25 GLUCOSE RANDOM (BEAKER) (test code = 652) 146 mg/dL 70-105 H CALCIUM (BEAKER) (test code = 697) 9.0 mg/dL 8.4-10.2 EGFR (BEAKER) (test code = 1092) 106 mL/min/1.73 sq m ESTIMATED GFR IS NOT ACCURATE CREATININE CLEARANCE IN PREDICTING GLOMERULAR FILTRATION RATE. ESTIMATED GFR IS NOT APPLICABLE FOR DIALYSIS PATIENTS. POCT-GLUCOSE [id number] 08:29:00* Test Item Value Reference Range Interpretation Comments POC-GLUCOSE METER (BEAKER) (test code = 1538) 142 mg/dL 70-110 H TESTED AT [address] [address] POCT-GLUCOSE [id number] 21:33:00* Test Item Value Reference Range Interpretation Comments POC-GLUCOSE METER (BEAKER) (test code = 1538) 126 mg/dL 70-110 H TESTED AT [address] [address] POCT-GLUCOSE [id number] 17:15:00* Test Item Value Reference Range Interpretation Comments POC-GLUCOSE METER (BEAKER) (test code = 1538) 147 mg/dL 70-110 H TESTED AT [address] [address] OCCULT BLOOD, [id number] 13:29:00* Test Item Value Reference Range Interpretation Comments FECAL OCCULT BLOOD (BEAKER) (test code = 618) Negative Negative POCT-GLUCOSE [id number] 12:38:00* Test Item Value Reference Range Interpretation Comments POC-GLUCOSE METER (BEAKER) (test code = 1538) 173 mg/dL 70-110 H TESTED AT [address] [address] BASIC METABOLIC [id number] 11:11:00* Test Item Value Reference Range Interpretation Comments SODIUM (BEAKER) (test code = 381) 140 meq/L 136-145 POTASSIUM (BEAKER) (test code = 379) 3.7 meq/L 3.5-5.1 CHLORIDE (BEAKER) (test code = 382) 106 meq/L 98-107 CO2 (BEAKER) (test code = 355) 24 meq/L 22-29 BLOOD UREA NITROGEN (BEAKER) (test code = 354) 4 mg/dL 7-21 L CREATININE (BEAKER) (test code = 358) 0.78 mg/dL 0.57-1.25 GLUCOSE RANDOM (BEAKER) (test code = 652) 178 mg/dL 70-105 H CALCIUM (BEAKER) (test code = 697) 9.0 mg/dL 8.4-10.2 EGFR (BEAKER) (test code = 1092) 108 mL/min/1.73 sq m ESTIMATED GFR IS NOT ACCURATE CREATININE CLEARANCE IN PREDICTING GLOMERULAR FILTRATION RATE. ESTIMATED GFR IS NOT APPLICABLE FOR DIALYSIS PATIENTS. CBC W/PLT COUNT & AUTO [id number] 11:03:00* Test Item Value Reference Range Interpretation Comments WHITE BLOOD CELL COUNT (BEAKER) (test code = 775) 4.5 K/ L 4.0- 10.0 RED BLOOD CELL COUNT (BEAKER) (test code = 761) 3.95 M/ L 4.20-5 .80 L HEMOGLOBIN (BEAKER) (test code = 410) 13.7 GM/DL 13.0-16.8 HEMATOCRIT (BEAKER) (test code = 411) 36.4 % 40.0-50.0 L MEAN CORPUSCULAR VOLUME (BEAKER) (test code = 753) 92.0 fL 82. 0-98.0 MEAN CORPUSCULAR HEMOGLOBIN (BEAKER) (test code = 751) 34.7 pg 27.0-33.0 H MEAN CORPUSCULAR HEMOGLOBIN CONC (BEAKER) (test code = 752) 37.8 GM/DL 32.0-36.0 H RED CELL DISTRIBUTION WIDTH (BEAKER) (test code = 412) 12.2 % 10.3-14.2 PLATELET COUNT (BEAKER) (test code = 756) 102 K/CU MM 150-430 L MEAN PLATELET VOLUME (BEAKER) (test code = 754) 8.8 fL 6.5-10 .5 NUCLEATED RED BLOOD CELLS (BEAKER) (test code = 413) 0 /100 WBC 0 -0 NEUTROPHILS RELATIVE PERCENT (BEAKER) (test code = 429) 66 % LYMPHOCYTES RELATIVE PERCENT (BEAKER) (test code = 430) 25 % MONOCYTES RELATIVE PERCENT (BEAKER) (test code = 431) 7 % EOSINOPHILS RELATIVE PERCENT (BEAKER) (test code = 432) 2 % BASOPHILS RELATIVE PERCENT (BEAKER) (test code = 437) 0 % NEUTROPHILS ABSOLUTE COUNT (BEAKER) (test code = 670) 2.98 K/ L 1.80-8.00 LYMPHOCYTES ABSOLUTE COUNT (BEAKER) (test code = 414) 1.12 K/ L 1.48-4.50 L MONOCYTES ABSOLUTE COUNT (BEAKER) (test code = 415) 0.31 K/ L 0. 00-1.30 EOSINOPHILS ABSOLUTE COUNT (BEAKER) (test code = 416) 0.11 K/ L 0.00-0.50 BASOPHILS ABSOLUTE COUNT (BEAKER) (test code = 417) 0.01 K/ L 0. 00-0.20 0.00POCT-GLUCOSE [id number] 09:07:00* Test Item Value Reference Range Interpretation Comments POC-GLUCOSE METER (BEAKER) (test code = 1538) 149 mg/dL 70-110 H TESTED AT [address] [address] POCT-GLUCOSE [id number] 22:09:00* Test Item Value Reference Range Interpretation Comments POC-GLUCOSE METER (BEAKER) (test code = 1538) 145 mg/dL 70-110 H TESTED AT [address] [address] POCT-GLUCOSE [id number] 17:19:00* Test Item Value Reference Range Interpretation Comments POC-GLUCOSE METER (BEAKER) (test code = 1538) 104 mg/dL 70-110 TESTED AT [address] [address] POCT-GLUCOSE [id number] 12:34:00* Test Item Value Reference Range Interpretation Comments POC-GLUCOSE METER (BEAKER) (test code = 1538) 222 mg/dL 70-110 H TESTED AT [address] [address] POCT-GLUCOSE [id number] 09:53:00* Test Item Value Reference Range Interpretation Comments POC-GLUCOSE METER (BEAKER) (test code = 1538) 130 mg/dL 70-110 H TESTED AT [facility] [address] [facility] [address] POCT-GLUCOSE [id number] 20:51:00* Test Item Value Reference Range Interpretation Comments POC-GLUCOSE METER (BEAKER) (test code = 1538) 157 mg/dL 70-110 H TESTED AT [facility] [address] [facility] [address] POCT-GLUCOSE [id number] 18:45:00* Test Item Value Reference Range Interpretation Comments POC-GLUCOSE METER (BEAKER) (test code = 1538) 136 mg/dL 70-110 H TESTED AT [facility] [address] [facility] [address] CLOSTRIDIUM DIFFICILE TOXIN [id number] 16:25:00* Test Item Value Reference Range Interpretation Comments CLOSTRIDIUM DIFFICILE TOXIN, PCR (BEAKER) (test code = 1525) Not Detected Not Detected This qualitative real-time [...] testing of a positive result is not recommended.[id number] 12:46:00* Test Item Value Reference Range Interpretation Comments LIPASE (BEAKER) (test code = 749) 33 U/L 8-78 [id number] 12:46:00* Test Item Value Reference Range Interpretation Comments AMYLASE (BEAKER) (test code = 349) 62 U/L 25-125 HEPATIC FUNCTION [id number] 12:46:00* Test Item Value Reference Range Interpretation Comments TOTAL PROTEIN (BEAKER) (test code = 770) 6.2 gm/dL 6.0-8.3 ALBUMIN (BEAKER) (test code = 1145) 3.3 g/dL 3.5-5.0 L BILIRUBIN TOTAL (BEAKER) (test code = 377) 0.6 mg/dL 0.2-1.2 BILIRUBIN DIRECT (BEAKER) (test code = 706) 0.3 mg/dL 0.1-0.5 ALKALINE PHOSPHATASE (BEAKER) (test code = 346) 63 U/L 40-150 AST (SGOT) (BEAKER) (test code = 353) 12 U/L 5-34 ALT (SGPT) (BEAKER) (test code = 347) 19 U/L 6-55 POCT-GLUCOSE [id number] 11:54:00* Test Item Value Reference Range Interpretation Comments POC-GLUCOSE METER (BEAKER) (test code = 1538) 167 mg/dL 70-110 H TESTED AT [facility] [address] [facility] [address] CBC W/PLT COUNT & AUTO [id number] 06:09:00* Test Item Value Reference Range Interpretation Comments WHITE BLOOD CELL COUNT (BEAKER) (test code = 775) 4.1 K/ L 4.0- 10.0 RED BLOOD CELL COUNT (BEAKER) (test code = 761) 4.22 M/ L 4.20-5 .80 HEMOGLOBIN (BEAKER) (test code = 410) 13.9 GM/DL 13.0-16.8 HEMATOCRIT (BEAKER) (test code = 411) 39.5 % 40.0-50.0 L MEAN CORPUSCULAR VOLUME (BEAKER) (test code = 753) 93.6 fL 82. 0-98.0 MEAN CORPUSCULAR HEMOGLOBIN (BEAKER) (test code = 751) 32.9 pg 27.0-33.0 MEAN CORPUSCULAR HEMOGLOBIN CONC (BEAKER) (test code = 752) 35.2 GM/DL 32.0-36.0 RED CELL DISTRIBUTION WIDTH (BEAKER) (test code = 412) 12.5 % 10.3-14.2 PLATELET COUNT (BEAKER) (test code = 756) 95 K/CU MM 150-430 L MEAN PLATELET VOLUME (BEAKER) (test code = 754) 8.9 fL 6.5-10 .5 NUCLEATED RED BLOOD CELLS (BEAKER) (test code = 413) 0 /100 WBC 0 -0 NEUTROPHILS RELATIVE PERCENT (BEAKER) (test code = 429) 53 % LYMPHOCYTES RELATIVE PERCENT (BEAKER) (test code = 430) 32 % MONOCYTES RELATIVE PERCENT (BEAKER) (test code = 431) 10 % EOSINOPHILS RELATIVE PERCENT (BEAKER) (test code = 432) 4 % BASOPHILS RELATIVE PERCENT (BEAKER) (test code = 437) 0 % NEUTROPHILS ABSOLUTE COUNT (BEAKER) (test code = 670) 2.19 K/ L 1.80-8.00 LYMPHOCYTES ABSOLUTE COUNT (BEAKER) (test code = 414) 1.33 K/ L 1.48-4.50 L MONOCYTES ABSOLUTE COUNT (BEAKER) (test code = 415) 0.41 K/ L 0. 00-1.30 EOSINOPHILS ABSOLUTE COUNT (BEAKER) (test code = 416) 0.17 K/ L 0.00-0.50 BASOPHILS ABSOLUTE COUNT (BEAKER) (test code = 417) 0.00 K/ L 0. 00-0.20 0.00BASIC METABOLIC [id number] 05:43:00* Test Item Value Reference Range Interpretation Comments SODIUM (BEAKER) (test code = 381) 140 meq/L 136-145 POTASSIUM (BEAKER) (test code = 379) 3.3 meq/L 3.5-5.1 L CHLORIDE (BEAKER) (test code = 382) 108 meq/L 98-107 H CO2 (BEAKER) (test code = 355) 23 meq/L 22-29 BLOOD UREA NITROGEN (BEAKER) (test code = 354) 6 mg/dL 7-21 L CREATININE (BEAKER) (test code = 358) 0.74 mg/dL 0.57-1.25 GLUCOSE RANDOM (BEAKER) (test code = 652) 119 mg/dL 70-105 H CALCIUM (BEAKER) (test code = 697) 8.7 mg/dL 8.4-10.2 EGFR (BEAKER) (test code = 1092) 114 mL/min/1.73 sq m ESTIMATED GFR IS NOT ACCURATE CREATININE CLEARANCE IN PREDICTING GLOMERULAR FILTRATION RATE. ESTIMATED GFR IS NOT APPLICABLE FOR DIALYSIS PATIENTS. POCT-GLUCOSE [id number] 21:25:00* Test Item Value Reference Range Interpretation Comments POC-GLUCOSE METER (BEAKER) (test code = 1538) 147 mg/dL 70-110 H TESTED AT [facility] [address] [facility] [address] POCT-GLUCOSE [id number] 18:26:00* Test Item Value Reference Range Interpretation Comments POC-GLUCOSE METER (BEAKER) (test code = 1538) 193 mg/dL 70-110 H TESTED AT [facility] [address] [facility] [address] [id number] 07:43:00* Test Item Value Reference Range Interpretation Comments PHOSPHORUS (BEAKER) (test code = 604) 3.4 mg/dL 2.3-4.7 [id number] 07:43:00* Test Item Value Reference Range Interpretation Comments MAGNESIUM (BEAKER) (test code = 627) 1.7 mg/dL 1.6-2.6 BASIC METABOLIC [id number] 07:43:00* Test Item Value Reference Range Interpretation Comments SODIUM (BEAKER) (test code = 381) 139 meq/L 136-145 POTASSIUM (BEAKER) (test code = 379) 3.6 meq/L 3.5-5.1 CHLORIDE (BEAKER) (test code = 382) 108 meq/L 98-107 H CO2 (BEAKER) (test code = 355) 23 meq/L 22-29 BLOOD UREA NITROGEN (BEAKER) (test code = 354) 9 mg/dL 7-21 CREATININE (BEAKER) (test code = 358) 0.76 mg/dL 0.57-1.25 GLUCOSE RANDOM (BEAKER) (test code = 652) 123 mg/dL 70-105 H CALCIUM (BEAKER) (test code = 697) 8.4 mg/dL 8.4-10.2 EGFR (BEAKER) (test code = 1092) 111 mL/min/1.73 sq m ESTIMATED GFR IS NOT ACCURATE CREATININE CLEARANCE IN PREDICTING GLOMERULAR FILTRATION RATE. ESTIMATED GFR IS NOT APPLICABLE FOR DIALYSIS PATIENTS. [id number] 07:43:00* Test Item Value Reference Range Interpretation Comments LIPASE (BEAKER) (test code = 749) 56 U/L 8-78 POCT-GLUCOSE [id number] 07:06:00* Test Item Value Reference Range Interpretation Comments POC-GLUCOSE METER (BEAKER) (test code = 1538) 127 mg/dL 70-110 H TESTED AT [address] [address] POCT-GLUCOSE [id number] 21:31:00* Test Item Value Reference Range Interpretation Comments POC-GLUCOSE METER (BEAKER) (test code = 1538) 140 mg/dL 70-110 H TESTED AT [address] [address] POCT-GLUCOSE [id number] 18:57:00* Test Item Value Reference Range Interpretation Comments POC-GLUCOSE METER (BEAKER) (test code = 1538) 139 mg/dL 70-110 H TESTED AT [address] [address] POCT-GLUCOSE [id number] 12:25:00* Test Item Value Reference Range Interpretation Comments POC-GLUCOSE METER (BEAKER) (test code = 1538) 138 mg/dL 70-110 H TESTED AT [address] [address] POCT-GLUCOSE [id number] 08:48:00* Test Item Value Reference Range Interpretation Comments POC-GLUCOSE METER (BEAKER) (test code = 1538) 129 mg/dL 70-110 H TESTED AT [address] [address] [id number] 05:24:00* Test Item Value Reference Range Interpretation Comments MAGNESIUM (BEAKER) (test code = 627) 1.6 mg/dL 1.6-2.6 BASIC METABOLIC [id number] 05:24:00* Test Item Value Reference Range Interpretation Comments SODIUM (BEAKER) (test code = 381) 140 meq/L 136-145 POTASSIUM (BEAKER) (test code = 379) 3.6 meq/L 3.5-5.1 CHLORIDE (BEAKER) (test code = 382) 109 meq/L 98-107 H CO2 (BEAKER) (test code = 355) 24 meq/L 22-29 BLOOD UREA NITROGEN (BEAKER) (test code = 354) 16 mg/dL 7-21 CREATININE (BEAKER) (test code = 358) 0.95 mg/dL 0.57-1.25 GLUCOSE RANDOM (BEAKER) (test code = 652) 134 mg/dL 70-105 H CALCIUM (BEAKER) (test code = 697) 8.4 mg/dL 8.4-10.2 EGFR (BEAKER) (test code = 1092) 86 mL/min/1.73 sq m ESTIMATED GFR IS NOT ACCURATE CREATININE CLEARANCE IN PREDICTING GLOMERULAR FILTRATION RATE. ESTIMATED GFR IS NOT APPLICABLE FOR DIALYSIS PATIENTS. HEPATIC FUNCTION [id number] 05:24:00* Test Item Value Reference Range Interpretation Comments TOTAL PROTEIN (BEAKER) (test code = 770) 5.6 gm/dL 6.0-8.3 L ALBUMIN (BEAKER) (test code = 1145) 3.1 g/dL 3.5-5.0 L BILIRUBIN TOTAL (BEAKER) (test code = 377) 0.7 mg/dL 0.2-1.2 BILIRUBIN DIRECT (BEAKER) (test code = 706) 0.3 mg/dL 0.1-0.5 ALKALINE PHOSPHATASE (BEAKER) (test code = 346) 53 U/L 40-150 AST (SGOT) (BEAKER) (test code = 353) 15 U/L 5-34 ALT (SGPT) (BEAKER) (test code = 347) 32 U/L 6-55 [id number] 05:24:00* Test Item Value Reference Range Interpretation Comments LIPASE (BEAKER) (test code = 749) 480 U/L 8-78 H POCT-GLUCOSE [id number] 22:11:00* Test Item Value Reference Range Interpretation Comments POC-GLUCOSE METER (BEAKER) (test code = 1538) 153 mg/dL 70-110 H TESTED AT [facility] [address] [facility] [address] POCT-GLUCOSE [id number] 17:42:00* Test Item Value Reference Range Interpretation Comments POC-GLUCOSE METER (BEAKER) (test code = 1538) 154 mg/dL 70-110 H TESTED AT [facility] [address] [facility] [address] POCT-GLUCOSE [id number] 12:09:00* Test Item Value Reference Range Interpretation Comments POC-GLUCOSE METER (BEAKER) (test code = 1538) 175 mg/dL 70-110 H TESTED AT [place] [id number] [facility] [address] CBC W/PLT COUNT & AUTO [id number] 10:11:00* Test Item Value Reference Range Interpretation Comments WHITE BLOOD CELL COUNT (BEAKER) (test code = 775) 10.7 K/ L 4.0- 10.0 H RED BLOOD CELL COUNT (BEAKER) (test code = 761) 5.16 M/ L 4.20-5 .80 HEMOGLOBIN (BEAKER) (test code = 410) 15.9 GM/DL 13.0-16.8 HEMATOCRIT (BEAKER) (test code = 411) 47.7 % 40.0-50.0 MEAN CORPUSCULAR VOLUME (BEAKER) (test code = 753) 92.5 fL 82. 0-98.0 MEAN CORPUSCULAR HEMOGLOBIN (BEAKER) (test code = 751) 30.9 pg 27.0-33.0 MEAN CORPUSCULAR HEMOGLOBIN CONC (BEAKER) (test code = 752) 33.4 GM/DL 32.0-36.0 RED CELL DISTRIBUTION WIDTH (BEAKER) (test code = 412) 12.7 % 10.3-14.2 PLATELET COUNT (BEAKER) (test code = 756) 129 K/CU MM 150-430 L MEAN PLATELET VOLUME (BEAKER) (test code = 754) 8.6 fL 6.5-10 .5 NUCLEATED RED BLOOD CELLS (BEAKER) (test code = 413) 0 /100 WBC 0 -0 NEUTROPHILS RELATIVE PERCENT (BEAKER) (test code = 429) 84 % LYMPHOCYTES RELATIVE PERCENT (BEAKER) (test code = 430) 11 % MONOCYTES RELATIVE PERCENT (BEAKER) (test code = 431) 5 % EOSINOPHILS RELATIVE PERCENT (BEAKER) (test code = 432) 0 % BASOPHILS RELATIVE PERCENT (BEAKER) (test code = 437) 0 % NEUTROPHILS ABSOLUTE COUNT (BEAKER) (test code = 670) 8.93 K/ L 1.80-8.00 H LYMPHOCYTES ABSOLUTE COUNT (BEAKER) (test code = 414) 1.12 K/ L 1.48-4.50 L MONOCYTES ABSOLUTE COUNT (BEAKER) (test code = 415) 0.58 K/ L 0. 00-1.30 EOSINOPHILS ABSOLUTE COUNT (BEAKER) (test code = 416) 0.04 K/ L 0.00-0.50 BASOPHILS ABSOLUTE COUNT (BEAKER) (test code = 417) 0.02 K/ L 0. 00-0.20 0.00POCT-GLUCOSE [id number] 08:17:00* Test Item Value Reference Range Interpretation Comments POC-GLUCOSE METER (BEAKER) (test code = 1538) 203 mg/dL 70-110 H TESTED AT [facility] [address] [place] [address] [id number] 07:11:00* Test Item Value Reference Range Interpretation Comments LIPASE (BEAKER) (test code = 749) > U/L 8-78 H [id number] 07:02:00* Test Item Value Reference Range Interpretation Comments MAGNESIUM (BEAKER) (test code = 627) 1.9 mg/dL 1.6-2.6 BASIC METABOLIC [id number] 07:02:00* Test Item Value Reference Range Interpretation Comments SODIUM (BEAKER) (test code = 381) 138 meq/L 136-145 POTASSIUM (BEAKER) (test code = 379) 4.3 meq/L 3.5-5.1 CHLORIDE (BEAKER) (test code = 382) 107 meq/L 98-107 CO2 (BEAKER) (test code = 355) 20 meq/L 22-29 L BLOOD UREA NITROGEN (BEAKER) (test code = 354) 12 mg/dL 7-21 CREATININE (BEAKER) (test code = 358) 1.01 mg/dL 0.57-1.25 GLUCOSE RANDOM (BEAKER) (test code = 652) 207 mg/dL 70-105 H CALCIUM (BEAKER) (test code = 697) 9.3 mg/dL 8.4-10.2 EGFR (BEAKER) (test code = 1092) 80 mL/min/1.73 sq m ESTIMATED GFR IS NOT ACCURATE CREATININE CLEARANCE IN PREDICTING GLOMERULAR FILTRATION RATE. ESTIMATED GFR IS NOT APPLICABLE FOR DIALYSIS PATIENTS. HEPATIC FUNCTION [id number] 07:02:00* Test Item Value Reference Range Interpretation Comments TOTAL PROTEIN (BEAKER) (test code = 770) 7.2 gm/dL 6.0-8.3 ALBUMIN (BEAKER) (test code = 1145) 4.0 g/dL 3.5-5.0 BILIRUBIN TOTAL (BEAKER) (test code = 377) 1.3 mg/dL 0.2-1.2 H BILIRUBIN DIRECT (BEAKER) (test code = 706) 0.5 mg/dL 0.1-0.5 ALKALINE PHOSPHATASE (BEAKER) (test code = 346) 83 U/L 40-150 AST (SGOT) (BEAKER) (test code = 353) 43 U/L 5-34 H ALT (SGPT) (BEAKER) (test code = 347) 63 U/L 6-55 H POCT-GLUCOSE [id number] 22:05:00* Test Item Value Reference Range Interpretation Comments POC-GLUCOSE METER (BEAKER) (test code = 1538) 156 mg/dL 70-110 H TESTED AT [facility] [address] [facility] [address] POCT-GLUCOSE [id number] 22:05:00* Test Item Value Reference Range Interpretation Comments POC-GLUCOSE METER (BEAKER) (test code = 1538) 150 mg/dL 70-110 H TESTED AT [place] [id number] [facility] [address] TISSUE [id number] 17:38:00Surgical Pathology Report Case: [id number] Authorizing Provider: Madison Guzman MD Ordering Provider: Madison Guzman MD Ordering Location: [address] Collected: 06/21/2016 1803 Service Pathologist: Odilia Head, Received: 06/22/2016 [id number] Specimen: Bio psy, Gastric STOMACH, ENDOSCOPIC BIOPSY: - 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 CG/ewPERFORMEDThe following special studies were perfor med on this case and the interpretation is incorporated in the diagnostic report above:[id number] 17:05:00* Test Item Value Reference Range Interpretation Comments POC-GLUCOSE METER (BEAKER) (test code = 1538) 218 mg/dL 70-110 H TESTED AT [facility] [address] [facility] [address] POCT-GLUCOSE [id number] 12:56:00* Test Item Value Reference Range Interpretation Comments POC-GLUCOSE METER (BEAKER) (test code = 1538) 149 mg/dL 70-110 H TESTED AT [facility] [address] [facility] [address] CBC W/PLT COUNT & AUTO [id number] 09:05:00* Test Item Value Reference Range Interpretation Comments WHITE BLOOD CELL COUNT (BEAKER) (test code = 775) 3.6 K/ L 4.0- 10.0 L RED BLOOD CELL COUNT (BEAKER) (test code = 761) 4.29 M/ L 4.20-5 .80 HEMOGLOBIN (BEAKER) (test code = 410) 13.8 GM/DL 13.0-16.8 HEMATOCRIT (BEAKER) (test code = 411) 39.6 % 40.0-50.0 L MEAN CORPUSCULAR VOLUME (BEAKER) (test code = 753) 92.4 fL 82. 0-98.0 MEAN CORPUSCULAR HEMOGLOBIN (BEAKER) (test code = 751) 32.3 pg 27.0-33.0 MEAN CORPUSCULAR HEMOGLOBIN CONC (BEAKER) (test code = 752) 35.0 GM/DL 32.0-36.0 RED CELL DISTRIBUTION WIDTH (BEAKER) (test code = 412) 13.8 % 10.3-14.2 PLATELET COUNT (BEAKER) (test code = 756) 119 K/CU MM 150-430 L MEAN PLATELET VOLUME (BEAKER) (test code = 754) 8.6 fL 6.5-10 .5 NUCLEATED RED BLOOD CELLS (BEAKER) (test code = 413) 0 /100 WBC 0 -0 NEUTROPHILS RELATIVE PERCENT (BEAKER) (test code = 429) 48 % LYMPHOCYTES RELATIVE PERCENT (BEAKER) (test code = 430) 40 % MONOCYTES RELATIVE PERCENT (BEAKER) (test code = 431) 8 % EOSINOPHILS RELATIVE PERCENT (BEAKER) (test code = 432) 3 % BASOPHILS RELATIVE PERCENT (BEAKER) (test code = 437) 1 % NEUTROPHILS ABSOLUTE COUNT (BEAKER) (test code = 670) 1.71 K/ L 1.80-8.00 L LYMPHOCYTES ABSOLUTE COUNT (BEAKER) (test code = 414) 1.45 K/ L 1.48-4.50 L MONOCYTES ABSOLUTE COUNT (BEAKER) (test code = 415) 0.30 K/ L 0. 00-1.30 EOSINOPHILS ABSOLUTE COUNT (BEAKER) (test code = 416) 0.10 K/ L 0.00-0.50 BASOPHILS ABSOLUTE COUNT (BEAKER) (test code = 417) 0.04 K/ L 0. 00-0.20 0.00POCT-GLUCOSE [id number] 07:54:00* Test Item Value Reference Range Interpretation Comments POC-GLUCOSE METER (BEAKER) (test code = 1538) 139 mg/dL 70-110 H TESTED AT [facility] [address] [facility] [address] [id number] 06:50:00* Test Item Value Reference Range Interpretation Comments MAGNESIUM (BEAKER) (test code = 627) 2.0 mg/dL 1.6-2.6 BASIC METABOLIC [id number] 06:50:00* Test Item Value Reference Range Interpretation Comments SODIUM (BEAKER) (test code = 381) 139 meq/L 136-145 POTASSIUM (BEAKER) (test code = 379) 3.6 meq/L 3.5-5.1 CHLORIDE (BEAKER) (test code = 382) 106 meq/L 98-107 CO2 (BEAKER) (test code = 355) 21 meq/L 22-29 L BLOOD UREA NITROGEN (BEAKER) (test code = 354) 7 mg/dL 7-21 CREATININE (BEAKER) (test code = 358) 0.81 mg/dL 0.57-1.25 GLUCOSE RANDOM (BEAKER) (test code = 652) 146 mg/dL 70-105 H CALCIUM (BEAKER) (test code = 697) 9.0 mg/dL 8.4-10.2 EGFR (BEAKER) (test code = 1092) 103 mL/min/1.73 sq m ESTIMATED GFR IS NOT ACCURATE CREATININE CLEARANCE IN PREDICTING GLOMERULAR FILTRATION RATE. ESTIMATED GFR IS NOT APPLICABLE FOR DIALYSIS PATIENTS. POCT-GLUCOSE [id number] 21:24:00* Test Item Value Reference Range Interpretation Comments POC-GLUCOSE METER (BEAKER) (test code = 1538) 164 mg/dL 70-110 H TESTED AT [address] [address] POCT-GLUCOSE [id number] 18:31:00* Test Item Value Reference Range Interpretation Comments POC-GLUCOSE METER (BEAKER) (test code = 1538) 158 mg/dL 70-110 H TESTED AT [address] [address] POCT-GLUCOSE [id number] 13:16:00* Test Item Value Reference Range Interpretation Comments POC-GLUCOSE METER (BEAKER) (test code = 1538) 160 mg/dL 70-110 H TESTED AT [address] [address] POCT-GLUCOSE [id number] 09:06:00* Test Item Value Reference Range Interpretation Comments POC-GLUCOSE METER (BEAKER) (test code = 1538) 150 mg/dL 70-110 H TESTED AT [address] [address] CBC W/PLT COUNT & AUTO [id number] 06:13:00* Test Item Value Reference Range Interpretation Comments WHITE BLOOD CELL COUNT (BEAKER) (test code = 775) 3.8 K/ L 4.0- 10.0 L RED BLOOD CELL COUNT (BEAKER) (test code = 761) 4.21 M/ L 4.20-5 .80 HEMOGLOBIN (BEAKER) (test code = 410) 13.7 GM/DL 13.0-16.8 HEMATOCRIT (BEAKER) (test code = 411) 38.9 % 40.0-50.0 L MEAN CORPUSCULAR VOLUME (BEAKER) (test code = 753) 92.4 fL 82. 0-98.0 MEAN CORPUSCULAR HEMOGLOBIN (BEAKER) (test code = 751) 32.6 pg 27.0-33.0 MEAN CORPUSCULAR HEMOGLOBIN CONC (BEAKER) (test code = 752) 35.3 GM/DL 32.0-36.0 RED CELL DISTRIBUTION WIDTH (BEAKER) (test code = 412) 12.7 % 10.3-14.2 PLATELET COUNT (BEAKER) (test code = 756) 122 K/CU MM 150-430 L MEAN PLATELET VOLUME (BEAKER) (test code = 754) 8.6 fL 6.5-10 .5 NUCLEATED RED BLOOD CELLS (BEAKER) (test code = 413) 0 /100 WBC 0 -0 NEUTROPHILS RELATIVE PERCENT (BEAKER) (test code = 429) 47 % LYMPHOCYTES RELATIVE PERCENT (BEAKER) (test code = 430) 41 % MONOCYTES RELATIVE PERCENT (BEAKER) (test code = 431) 8 % EOSINOPHILS RELATIVE PERCENT (BEAKER) (test code = 432) 4 % BASOPHILS RELATIVE PERCENT (BEAKER) (test code = 437) 0 % NEUTROPHILS ABSOLUTE COUNT (BEAKER) (test code = 670) 1.78 K/ L 1.80-8.00 L LYMPHOCYTES ABSOLUTE COUNT (BEAKER) (test code = 414) 1.56 K/ L 1.48-4.50 MONOCYTES ABSOLUTE COUNT (BEAKER) (test code = 415) 0.30 K/ L 0. 00-1.30 EOSINOPHILS ABSOLUTE COUNT (BEAKER) (test code = 416) 0.14 K/ L 0.00-0.50 BASOPHILS ABSOLUTE COUNT (BEAKER) (test code = 417) 0.01 K/ L 0. 00-0.20 0.00BASIC METABOLIC [id number] 06:12:00* Test Item Value Reference Range Interpretation Comments SODIUM (BEAKER) (test code = 381) 140 meq/L 136-145 POTASSIUM (BEAKER) (test code = 379) 3.6 meq/L 3.5-5.1 CHLORIDE (BEAKER) (test code = 382) 107 meq/L 98-107 CO2 (BEAKER) (test code = 355) 23 meq/L 22-29 BLOOD UREA NITROGEN (BEAKER) (test code = 354) 5 mg/dL 7-21 L CREATININE (BEAKER) (test code = 358) 0.84 mg/dL 0.57-1.25 GLUCOSE RANDOM (BEAKER) (test code = 652) 144 mg/dL 70-105 H CALCIUM (BEAKER) (test code = 697) 8.7 mg/dL 8.4-10.2 EGFR (BEAKER) (test code = 1092) 99 mL/min/1.73 sq m ESTIMATED GFR IS NOT ACCURATE CREATININE CLEARANCE IN PREDICTING GLOMERULAR FILTRATION RATE. ESTIMATED GFR IS NOT APPLICABLE FOR DIALYSIS PATIENTS. PROTHROMBIN [id number] 05:50:00* Test Item Value Reference Range Interpretation Comments PROTIME (BEAKER) (test code = 759) 14.4 seconds 11.7-14.7 INR (BEAKER) (test code = 370) 1.1 <=5.9 RECOMMENDED COUMADIN/WARFARIN INR THERAPY RANGESSTANDARD DOSE: 2.0 - 3.0 Inclu josé: PROPHYLAXIS for venous thrombosis, systemic embolization; TREATMENT for nag[place] ous thrombosis and/or pulmonary embolus.HIGH RISK: Target INR is 2.5-3.5 for pat ients with mechanical heart valves.POCT-GLUCOSE [id number] 22:08:00* Test Item Value Reference Range Interpretation Comments POC-GLUCOSE METER (BEAKER) (test code = 1538) 164 mg/dL 70-110 H TESTED AT [facility] [address] [facility] [address] POCT-GLUCOSE [id number] 17:46:00* Test Item Value Reference Range Interpretation Comments POC-GLUCOSE METER (BEAKER) (test code = 1538) 158 mg/dL 70-110 H TESTED AT [facility] [address] [facility] [address] POCT-GLUCOSE [id number] 12:03:00* Test Item Value Reference Range Interpretation Comments POC-GLUCOSE METER (BEAKER) (test code = 1538) 231 mg/dL 70-110 H TESTED AT [place] [id number] [facility] [address] POCT-GLUCOSE [id number] 09:50:00* Test Item Value Reference Range Interpretation Comments POC-GLUCOSE METER (BEAKER) (test code = 1538) 169 mg/dL 70-110 H TESTED AT [place] [id number] [facility] [address] [id number] 07:16:00* Test Item Value Reference Range Interpretation Comments TRIGLYCERIDES (BEAKER) (test code = 540) 351 mg/dL TRIGLYCERIDE REFERENCE RANGELow Risk <150Borderline Risk 150-199High Risk 200- 499Very High Risk >=500BASIC METABOLIC [id number] 07:16:00* Test Item Value Reference Range Interpretation Comments SODIUM (BEAKER) (test code = 381) 140 meq/L 136-145 POTASSIUM (BEAKER) (test code = 379) 3.6 meq/L 3.5-5.1 CHLORIDE (BEAKER) (test code = 382) 107 meq/L 98-107 CO2 (BEAKER) (test code = 355) 24 meq/L 22-29 BLOOD UREA NITROGEN (BEAKER) (test code = 354) 5 mg/dL 7-21 L CREATININE (BEAKER) (test code = 358) 0.78 mg/dL 0.57-1.25 GLUCOSE RANDOM (BEAKER) (test code = 652) 135 mg/dL 70-105 H CALCIUM (BEAKER) (test code = 697) 8.7 mg/dL 8.4-10.2 EGFR (BEAKER) (test code = 1092) 108 mL/min/1.73 sq m ESTIMATED GFR IS NOT ACCURATE CREATININE CLEARANCE IN PREDICTING GLOMERULAR FILTRATION RATE. ESTIMATED GFR IS NOT APPLICABLE FOR DIALYSIS PATIENTS. POCT-GLUCOSE [id number] 21:42:00* Test Item Value Reference Range Interpretation Comments POC-GLUCOSE METER (BEAKER) (test code = 1538) 189 mg/dL 70-110 H TESTED AT [address] [address] POCT-GLUCOSE [id number] 18:31:00* Test Item Value Reference Range Interpretation Comments POC-GLUCOSE METER (BEAKER) (test code = 1538) 171 mg/dL 70-110 H TESTED AT [address] [address] POCT-GLUCOSE [id number] 12:38:00* Test Item Value Reference Range Interpretation Comments POC-GLUCOSE METER (BEAKER) (test code = 1538) 229 mg/dL 70-110 H TESTED AT [address] [address] POCT-GLUCOSE [id number] 07:47:00* Test Item Value Reference Range Interpretation Comments POC-GLUCOSE METER (BEAKER) (test code = 1538) 153 mg/dL 70-110 H TESTED AT [address] [address] B-TYPE NATRIURETIC FACTOR (BNP)2016-06-19 06:42:00* Test Item Value Reference Range Interpretation Comments B-TYPE NATRIURETIC PEPTIDE (BEAKER) (test code = 700) 48 pg/mL 0-100 [id number] 06:37:00* Test Item Value Reference Range Interpretation Comments MAGNESIUM (BEAKER) (test code = 627) 1.7 mg/dL 1.6-2.6 BASIC METABOLIC [id number] 06:37:00* Test Item Value Reference Range Interpretation Comments SODIUM (BEAKER) (test code = 381) 140 meq/L 136-145 POTASSIUM (BEAKER) (test code = 379) 3.4 meq/L 3.5-5.1 L CHLORIDE (BEAKER) (test code = 382) 107 meq/L 98-107 CO2 (BEAKER) (test code = 355) 24 meq/L 22-29 BLOOD UREA NITROGEN (BEAKER) (test code = 354) 6 mg/dL 7-21 L CREATININE (BEAKER) (test code = 358) 0.77 mg/dL 0.57-1.25 GLUCOSE RANDOM (BEAKER) (test code = 652) 138 mg/dL 70-105 H CALCIUM (BEAKER) (test code = 697) 8.6 mg/dL 8.4-10.2 EGFR (BEAKER) (test code = 1092) 109 mL/min/1.73 sq m ESTIMATED GFR IS NOT ACCURATE CREATININE CLEARANCE IN PREDICTING GLOMERULAR FILTRATION RATE. ESTIMATED GFR IS NOT APPLICABLE FOR DIALYSIS PATIENTS. POCT-GLUCOSE [id number] 21:18:00* Test Item Value Reference Range Interpretation Comments POC-GLUCOSE METER (BEAKER) (test code = 1538) 191 mg/dL 70-110 H TESTED AT [address] [address] POCT-GLUCOSE [id number] 17:13:00* Test Item Value Reference Range Interpretation Comments POC-GLUCOSE METER (BEAKER) (test code = 1538) 141 mg/dL 70-110 H TESTED AT [address] [address] POCT-GLUCOSE [id number] 12:20:00* Test Item Value Reference Range Interpretation Comments POC-GLUCOSE METER (BEAKER) (test code = 1538) 290 mg/dL 70-110 H TESTED AT [address] [address] SEDIMENTATION [id number] 08:28:00* Test Item Value Reference Range Interpretation Comments SEDIMENTATION RATE, ERYTHROCYTE (BEAKER) (test code = 766) 14 mm/HR 0-15 POCT-GLUCOSE [id number] 08:04:00* Test Item Value Reference Range Interpretation Comments POC-GLUCOSE METER (BEAKER) (test code = 1538) 165 mg/dL 70-110 H TESTED AT [address] [address] BASIC METABOLIC [id number] 04:53:00* Test Item Value Reference Range Interpretation Comments SODIUM (BEAKER) (test code = 381) 138 meq/L 136-145 POTASSIUM (BEAKER) (test code = 379) 3.5 meq/L 3.5-5.1 CHLORIDE (BEAKER) (test code = 382) 105 meq/L 98-107 CO2 (BEAKER) (test code = 355) 25 meq/L 22-29 BLOOD UREA NITROGEN (BEAKER) (test code = 354) 9 mg/dL 7-21 CREATININE (BEAKER) (test code = 358) 0.92 mg/dL 0.57-1.25 GLUCOSE RANDOM (BEAKER) (test code = 652) 134 mg/dL 70-105 H CALCIUM (BEAKER) (test code = 697) 8.5 mg/dL 8.4-10.2 EGFR (BEAKER) (test code = 1092) 89 mL/min/1.73 sq m ESTIMATED GFR IS NOT ACCURATE CREATININE CLEARANCE IN PREDICTING GLOMERULAR FILTRATION RATE. ESTIMATED GFR IS NOT APPLICABLE FOR DIALYSIS PATIENTS. POCT-GLUCOSE [id number] 22:43:00* Test Item Value Reference Range Interpretation Comments POC-GLUCOSE METER (BEAKER) (test code = 1538) 160 mg/dL 70-110 H TESTED AT [address] [address] POCT-GLUCOSE [id number] 17:55:00* Test Item Value Reference Range Interpretation Comments POC-GLUCOSE METER (BEAKER) (test code = 1538) 216 mg/dL 70-110 H TESTED AT [address] [address] POCT-GLUCOSE [id number] 13:42:00* Test Item Value Reference Range Interpretation Comments POC-GLUCOSE METER (BEAKER) (test code = 1538) 148 mg/dL 70-110 H TESTED AT [address] [address] POCT-GLUCOSE [id number] 08:01:00* Test Item Value Reference Range Interpretation Comments POC-GLUCOSE METER (BEAKER) (test code = 1538) 160 mg/dL 70-110 H TESTED AT [facility] [address] [facility] [address] POCT-GLUCOSE [id number] 07:06:00* Test Item Value Reference Range Interpretation Comments POC-GLUCOSE METER (BEAKER) (test code = 1538) 160 mg/dL 70-110 H TESTED AT [facility] [address] [facility] [address] CREATINE KINASE (CK)2016-06-17 05:13:00* Test Item Value Reference Range Interpretation Comments CREATINE KINASE TOTAL (BEAKER) (test code = 380) 90 U/L 29-20 0 BASIC METABOLIC [id number] 05:12:00* Test Item Value Reference Range Interpretation Comments SODIUM (BEAKER) (test code = 381) 140 meq/L 136-145 POTASSIUM (BEAKER) (test code = 379) 3.4 meq/L 3.5-5.1 L CHLORIDE (BEAKER) (test code = 382) 105 meq/L 98-107 CO2 (BEAKER) (test code = 355) 26 meq/L 22-29 BLOOD UREA NITROGEN (BEAKER) (test code = 354) 9 mg/dL 7-21 CREATININE (BEAKER) (test code = 358) 0.86 mg/dL 0.57-1.25 GLUCOSE RANDOM (BEAKER) (test code = 652) 127 mg/dL 70-105 H CALCIUM (BEAKER) (test code = 697) 8.8 mg/dL 8.4-10.2 EGFR (BEAKER) (test code = 1092) 96 mL/min/1.73 sq m ESTIMATED GFR IS NOT ACCURATE CREATININE CLEARANCE IN PREDICTING GLOMERULAR FILTRATION RATE. ESTIMATED GFR IS NOT APPLICABLE FOR DIALYSIS PATIENTS. CBC W/PLT COUNT & AUTO [id number] 05:07:00* Test Item Value Reference Range Interpretation Comments WHITE BLOOD CELL COUNT (BEAKER) (test code = 775) 3.6 K/ L 4.0- 10.0 L RED BLOOD CELL COUNT (BEAKER) (test code = 761) 4.44 M/ L 4.20-5 .80 HEMOGLOBIN (BEAKER) (test code = 410) 13.9 GM/DL 13.0-16.8 HEMATOCRIT (BEAKER) (test code = 411) 41.5 % 40.0-50.0 MEAN CORPUSCULAR VOLUME (BEAKER) (test code = 753) 93.3 fL 82. 0-98.0 MEAN CORPUSCULAR HEMOGLOBIN (BEAKER) (test code = 751) 31.2 pg 27.0-33.0 MEAN CORPUSCULAR HEMOGLOBIN CONC (BEAKER) (test code = 752) 33.4 GM/DL 32.0-36.0 RED CELL DISTRIBUTION WIDTH (BEAKER) (test code = 412) 12.7 % 10.3-14.2 PLATELET COUNT (BEAKER) (test code = 756) 114 K/CU MM 150-430 L MEAN PLATELET VOLUME (BEAKER) (test code = 754) 8.9 fL 6.5-10 .5 NUCLEATED RED BLOOD CELLS (BEAKER) (test code = 413) 0 /100 WBC 0 -0 NEUTROPHILS RELATIVE PERCENT (BEAKER) (test code = 429) 48 % LYMPHOCYTES RELATIVE PERCENT (BEAKER) (test code = 430) 34 % MONOCYTES RELATIVE PERCENT (BEAKER) (test code = 431) 13 % EOSINOPHILS RELATIVE PERCENT (BEAKER) (test code = 432) 5 % BASOPHILS RELATIVE PERCENT (BEAKER) (test code = 437) 1 % NEUTROPHILS ABSOLUTE COUNT (BEAKER) (test code = 670) 1.74 K/ L 1.80-8.00 L LYMPHOCYTES ABSOLUTE COUNT (BEAKER) (test code = 414) 1.22 K/ L 1.48-4.50 L MONOCYTES ABSOLUTE COUNT (BEAKER) (test code = 415) 0.45 K/ L 0. 00-1.30 EOSINOPHILS ABSOLUTE COUNT (BEAKER) (test code = 416) 0.17 K/ L 0.00-0.50 BASOPHILS ABSOLUTE COUNT (BEAKER) (test code = 417) 0.02 K/ L 0. 00-0.20 0.00POCT-GLUCOSE [id number] 00:20:00* Test Item Value Reference Range Interpretation Comments POC-GLUCOSE METER (BEAKER) (test code = 1538) 154 mg/dL 70-110 H TESTED AT [place] [id number] [facility] [address] POCT-GLUCOSE [id number] 20:49:00* Test Item Value Reference Range Interpretation Comments POC-GLUCOSE METER (BEAKER) (test code = 1538) 243 mg/dL 70-110 H TESTED AT [place] [id number] [facility] [address] POCT-GLUCOSE [id number] 16:38:00* Test Item Value Reference Range Interpretation Comments POC-GLUCOSE METER (BEAKER) (test code = 1538) 151 mg/dL 70-110 H TESTED AT [facility] [address] [facility] [address] ANTI-NUCLEAR ANTIBODY (MARIAELENA)2016-06-16 13:39:00* Test Item Value Reference Range Interpretation Comments ANTI-NUCLEAR ANTIBODY (MARIAELENA) (BEAKER) (test code = 418) Negative Negative POCT-GLUCOSE [id number] 12:00:00* Test Item Value Reference Range Interpretation Comments POC-GLUCOSE METER (BEAKER) (test code = 1538) 163 mg/dL 70-110 H TESTED AT [address] [address] HEMOGLOBIN [id number] 11:16:00* Test Item Value Reference Range Interpretation Comments HEMOGLOBIN A1C (BEAKER) (test code = 368) 9.5 % 4.3-6.1 H POCT-GLUCOSE [id number] 06:06:00* Test Item Value Reference Range Interpretation Comments POC-GLUCOSE METER (BEAKER) (test code = 1538) 151 mg/dL 70-110 H TESTED AT [address] [address] CBC W/PLT COUNT & AUTO [id number] 06:06:00* Test Item Value Reference Range Interpretation Comments WHITE BLOOD CELL COUNT (BEAKER) (test code = 775) 3.1 K/ L 4.0- 10.0 L RED BLOOD CELL COUNT (BEAKER) (test code = 761) 4.12 M/ L 4.20-5 .80 L HEMOGLOBIN (BEAKER) (test code = 410) 13.3 GM/DL 13.0-16.8 HEMATOCRIT (BEAKER) (test code = 411) 39.2 % 40.0-50.0 L MEAN CORPUSCULAR VOLUME (BEAKER) (test code = 753) 95.2 fL 82. 0-98.0 MEAN CORPUSCULAR HEMOGLOBIN (BEAKER) (test code = 751) 32.2 pg 27.0-33.0 MEAN CORPUSCULAR HEMOGLOBIN CONC (BEAKER) (test code = 752) 33.8 GM/DL 32.0-36.0 RED CELL DISTRIBUTION WIDTH (BEAKER) (test code = 412) 12.8 % 10.3-14.2 PLATELET COUNT (BEAKER) (test code = 756) 106 K/CU MM 150-430 L MEAN PLATELET VOLUME (BEAKER) (test code = 754) 9.1 fL 6.5-10 .5 NUCLEATED RED BLOOD CELLS (BEAKER) (test code = 413) 0 /100 WBC 0 -0 NEUTROPHILS RELATIVE PERCENT (BEAKER) (test code = 429) 43 % LYMPHOCYTES RELATIVE PERCENT (BEAKER) (test code = 430) 39 % MONOCYTES RELATIVE PERCENT (BEAKER) (test code = 431) 14 % EOSINOPHILS RELATIVE PERCENT (BEAKER) (test code = 432) 4 % BASOPHILS RELATIVE PERCENT (BEAKER) (test code = 437) 1 % NEUTROPHILS ABSOLUTE COUNT (BEAKER) (test code = 670) 1.31 K/ L 1.80-8.00 L LYMPHOCYTES ABSOLUTE COUNT (BEAKER) (test code = 414) 1.19 K/ L 1.48-4.50 L MONOCYTES ABSOLUTE COUNT (BEAKER) (test code = 415) 0.41 K/ L 0. 00-1.30 EOSINOPHILS ABSOLUTE COUNT (BEAKER) (test code = 416) 0.12 K/ L 0.00-0.50 BASOPHILS ABSOLUTE COUNT (BEAKER) (test code = 417) 0.02 K/ L 0. 00-0.20 0.00CARCINOEMBRYONIC ANTIGEN (CEA)2016-06-16 05:40:00* Test Item Value Reference Range Interpretation Comments CARCINOEMBRYONIC ANTIGEN (BEAKER) (test code = 685) 1.5 ng/mL 0. 0-5.0 [id number] 05:27:00* Test Item Value Reference Range Interpretation Comments MAGNESIUM (BEAKER) (test code = 627) 1.9 mg/dL 1.6-2.6 BASIC METABOLIC [id number] 05:27:00* Test Item Value Reference Range Interpretation Comments SODIUM (BEAKER) (test code = 381) 140 meq/L 136-145 POTASSIUM (BEAKER) (test code = 379) 4.6 meq/L 3.5-5.1 CHLORIDE (BEAKER) (test code = 382) 106 meq/L 98-107 CO2 (BEAKER) (test code = 355) 26 meq/L 22-29 BLOOD UREA NITROGEN (BEAKER) (test code = 354) 16 mg/dL 7-21 CREATININE (BEAKER) (test code = 358) 1.01 mg/dL 0.57-1.25 GLUCOSE RANDOM (BEAKER) (test code = 652) 148 mg/dL 70-105 H CALCIUM (BEAKER) (test code = 697) 8.6 mg/dL 8.4-10.2 EGFR (BEAKER) (test code = 1092) 80 mL/min/1.73 sq m ESTIMATED GFR IS NOT ACCURATE CREATININE CLEARANCE IN PREDICTING GLOMERULAR FILTRATION RATE. ESTIMATED GFR IS NOT APPLICABLE FOR DIALYSIS PATIENTS. LIPID [id number] 05:27:00* Test Item Value Reference Range Interpretation Comments TRIGLYCERIDES (BEAKER) (test code = 540) 372 mg/dL CHOLESTEROL (BEAKER) (test code = 631) 138 mg/dL HDL CHOLESTEROL (BEAKER) (test code = 976) 25 mg/dL LDL CHOLESTEROL CALCULATED (BEAKER) (test code = 633) 39 mg/dL Triglyceride Reference Range: Low Risk <150 Borderline 150-199 High Risk 200-499 Very High Risk >=500Cholesterol Reference Range: Low Risk <200 Borderline 200-239 High Risk >240HDL Cholesterol Reference Range: Low Risk >=60 High Risk <40LDL Cholesterol Reference Range: Optimal <100 Near Optimal 100-129 Borderline 130-159 High 160-189 Very High >=190 HEPATIC FUNCTION [id number] 05:27:00* Test Item Value Reference Range Interpretation Comments TOTAL PROTEIN (BEAKER) (test code = 770) 6.4 gm/dL 6.0-8.3 ALBUMIN (BEAKER) (test code = 1145) 3.6 g/dL 3.5-5.0 BILIRUBIN TOTAL (BEAKER) (test code = 377) 0.6 mg/dL 0.2-1.2 BILIRUBIN DIRECT (BEAKER) (test code = 706) 0.3 mg/dL 0.1-0.5 ALKALINE PHOSPHATASE (BEAKER) (test code = 346) 56 U/L 40-150 AST (SGOT) (BEAKER) (test code = 353) 24 U/L 5-34 ALT (SGPT) (BEAKER) (test code = 347) 28 U/L 6-55 [id number] 05:27:00* Test Item Value Reference Range Interpretation Comments AMYLASE (BEAKER) (test code = 349) 46 U/L 25-125 [id number] 05:27:00* Test Item Value Reference Range Interpretation Comments LIPASE (BEAKER) (test code = 749) 14 U/L 8-78 KETONE, [id number] 05:10:00* Test Item Value Reference Range Interpretation Comments KETONES, BLOOD (BEAKER) (test code = 1103) 0.3 mmol/L <0.4 POCT-GLUCOSE [id number] 23:58:00* Test Item Value Reference Range Interpretation Comments POC-GLUCOSE METER (BEAKER) (test code = 1538) 153 mg/dL 70-110 H TESTED AT [facility] [address] [facility] [address] POCT-GLUCOSE [id number] 19:53:00* Test Item Value Reference Range Interpretation Comments POC-GLUCOSE METER (BEAKER) (test code = 1538) 167 mg/dL 70-110 H TESTED AT [address] [address] URINALYSIS W/ [id number] 15:33:00* Test Item Value Reference Range Interpretation Comments COLOR (BEAKER) (test code = 470) Yellow CLARITY (BEAKER) (test code = 469) Hazy SPECIFIC GRAVITY UA (BEAKER) (test code = 468) 1.026 1.001-1 .035 PH UA (BEAKER) (test code = 467) 5.5 5.0-8.0 PROTEIN UA (BEAKER) (test code = 464) 200 mg/dL Negative A GLUCOSE UA (BEAKER) (test code = 365) 200 mg/dL Negative A KETONES UA (BEAKER) (test code = 371) Negative Negative BILIRUBIN UA (BEAKER) (test code = 462) Positive Negative A BLOOD UA (BEAKER) (test code = 461) Negative Negative NITRITE UA (BEAKER) (test code = 465) Negative Negative LEUKOCYTE ESTERASE UA (BEAKER) (test code = 466) Negative Negat adán UROBILINOGEN UA (BEAKER) (test code = 463) 2.0 mg/dL 0.2-1.0 H RBC UA (BEAKER) (test code = 519) 1 /HPF WBC UA (BEAKER) (test code = 520) 5 /HPF MUCUS (BEAKER) (test code = 1574) Moderate SQUAMOUS EPITHELIAL (BEAKER) (test code = 516) 1 /HPF HYALINE CASTS (BEAKER) (test code = 514) 15 /LPF SOURCE(BEAKER) (test code = 2795) Urine, Voided POCT-GLUCOSE [id number] 13:08:00* Test Item Value Reference Range Interpretation Comments POC-GLUCOSE METER (BEAKER) (test code = 1538) 156 mg/dL 70-110 H TESTED AT [facility] [address] [facility] [address] CBC W/PLT COUNT & AUTO [id number] 06:43:00* Test Item Value Reference Range Interpretation Comments WHITE BLOOD CELL COUNT (BEAKER) (test code = 775) 6.4 K/ L 4.0- 10.0 RED BLOOD CELL COUNT (BEAKER) (test code = 761) 4.33 M/ L 4.20-5 .80 HEMOGLOBIN (BEAKER) (test code = 410) 14.7 GM/DL 13.0-16.8 HEMATOCRIT (BEAKER) (test code = 411) 40.8 % 40.0-50.0 MEAN CORPUSCULAR VOLUME (BEAKER) (test code = 753) 94.4 fL 82. 0-98.0 MEAN CORPUSCULAR HEMOGLOBIN (BEAKER) (test code = 751) 34.0 pg 27.0-33.0 H MEAN CORPUSCULAR HEMOGLOBIN CONC (BEAKER) (test code = 752) 36.0 GM/DL 32.0-36.0 RED CELL DISTRIBUTION WIDTH (BEAKER) (test code = 412) 13.0 % 10.3-14.2 PLATELET COUNT (BEAKER) (test code = 756) 113 K/CU MM 150-430 L MEAN PLATELET VOLUME (BEAKER) (test code = 754) 9.8 fL 6.5-10 .5 NUCLEATED RED BLOOD CELLS (BEAKER) (test code = 413) 0 /100 WBC 0 -0 NEUTROPHILS RELATIVE PERCENT (BEAKER) (test code = 429) 78 % LYMPHOCYTES RELATIVE PERCENT (BEAKER) (test code = 430) 13 % MONOCYTES RELATIVE PERCENT (BEAKER) (test code = 431) 7 % EOSINOPHILS RELATIVE PERCENT (BEAKER) (test code = 432) 2 % BASOPHILS RELATIVE PERCENT (BEAKER) (test code = 437) 0 % NEUTROPHILS ABSOLUTE COUNT (BEAKER) (test code = 670) 5.00 K/ L 1.80-8.00 LYMPHOCYTES ABSOLUTE COUNT (BEAKER) (test code = 414) 0.82 K/ L 1.48-4.50 L MONOCYTES ABSOLUTE COUNT (BEAKER) (test code = 415) 0.46 K/ L 0. 00-1.30 EOSINOPHILS ABSOLUTE COUNT (BEAKER) (test code = 416) 0.12 K/ L 0.00-0.50 BASOPHILS ABSOLUTE COUNT (BEAKER) (test code = 417) 0.02 K/ L 0. 00-0.20 [id number] 06:40:00* Test Item Value Reference Range Interpretation Comments LIPASE (BEAKER) (test code = 749) 11 U/L 8-78 BASIC METABOLIC [id number] 06:40:00* Test Item Value Reference Range Interpretation Comments SODIUM (BEAKER) (test code = 381) 139 meq/L 136-145 POTASSIUM (BEAKER) (test code = 379) 3.5 meq/L 3.5-5.1 Specimen slightly hemolyzed CHLORIDE (BEAKER) (test code = 382) 104 meq/L 98-107 CO2 (BEAKER) (test code = 355) 21 meq/L 22-29 L BLOOD UREA NITROGEN (BEAKER) (test code = 354) 19 mg/dL 7-21 CREATININE (BEAKER) (test code = 358) 1.21 mg/dL 0.57-1.25 Specimen slightly hemolyzed GLUCOSE RANDOM (BEAKER) (test code = 652) 174 mg/dL 70-105 H CALCIUM (BEAKER) (test code = 697) 8.7 mg/dL 8.4-10.2 EGFR (BEAKER) (test code = 1092) 65 mL/min/1.73 sq m ESTIMATED GFR IS NOT ACCURATE CREATININE CLEARANCE IN PREDICTING GLOMERULAR FILTRATION RATE. ESTIMATED GFR IS NOT APPLICABLE FOR DIALYSIS PATIENTS. HEPATIC FUNCTION [id number] 06:40:00* Test Item Value Reference Range Interpretation Comments TOTAL PROTEIN (BEAKER) (test code = 770) 6.6 gm/dL 6.0-8.3 Specimen slightly hemolyzed ALBUMIN (BEAKER) (test code = 1145) 3.7 g/dL 3.5-5.0 Specimen slightly hemolyzed BILIRUBIN TOTAL (BEAKER) (test code = 377) 0.7 mg/dL 0.2-1.2 Specimen slightly hemolyzed BILIRUBIN DIRECT (BEAKER) (test code = 706) 0.2 mg/dL 0.1-0.5 Specimen slightly hemolyzed ALKALINE PHOSPHATASE (BEAKER) (test code = 346) 61 U/L 40-150 AST (SGOT) (BEAKER) (test code = 353) 17 U/L 5-34 Specimen slightly hemolyzed ALT (SGPT) (BEAKER) (test code = 347) 23 U/L 6-55 Specimen slightly hemolyzed POCT-GLUCOSE [id number] 06:03:00* Test Item Value Reference Range Interpretation Comments POC-GLUCOSE METER (BEAKER) (test code = 1538) 186 mg/dL 70-110 H TESTED AT [facility] [address] [facility] [address] TROPONIN [id number] 23:26:00* Test Item Value Reference Range Interpretation Comments TROPONIN I (BEAKER) (test code = 397) 0.02 ng/mL 0.00-0.03 Effective 02/05/2014: Reference Range [...] acidosis, acute neurological disease, and pers istent tachyarrhythmia.[id number] 18:34:00* Test Item Value Reference Range Interpretation Comments LIPASE (BEAKER) (test code = 749) 10 U/L 8-78 [id number] 18:34:00* Test Item Value Reference Range Interpretation Comments AMYLASE (BEAKER) (test code = 349) 61 U/L 25-125 BASIC METABOLIC [id number] 18:34:00* Test Item Value Reference Range Interpretation Comments SODIUM (BEAKER) (test code = 381) 141 meq/L 136-145 POTASSIUM (BEAKER) (test code = 379) 3.7 meq/L 3.5-5.1 CHLORIDE (BEAKER) (test code = 382) 103 meq/L 98-107 CO2 (BEAKER) (test code = 355) 25 meq/L 22-29 BLOOD UREA NITROGEN (BEAKER) (test code = 354) 15 mg/dL 7-21 CREATININE (BEAKER) (test code = 358) 1.20 mg/dL 0.57-1.25 GLUCOSE RANDOM (BEAKER) (test code = 652) 138 mg/dL 70-105 H CALCIUM (BEAKER) (test code = 697) 9.6 mg/dL 8.4-10.2 EGFR (BEAKER) (test code = 1092) 65 mL/min/1.73 sq m ESTIMATED GFR IS NOT ACCURATE CREATININE CLEARANCE IN PREDICTING GLOMERULAR FILTRATION RATE. ESTIMATED GFR IS NOT APPLICABLE FOR DIALYSIS PATIENTS. HEPATIC FUNCTION [id number] 18:34:00* Test Item Value Reference Range Interpretation Comments TOTAL PROTEIN (BEAKER) (test code = 770) 7.4 gm/dL 6.0-8.3 ALBUMIN (BEAKER) (test code = 1145) 4.2 g/dL 3.5-5.0 BILIRUBIN TOTAL (BEAKER) (test code = 377) 0.7 mg/dL 0.2-1.2 BILIRUBIN DIRECT (BEAKER) (test code = 706) 0.3 mg/dL 0.1-0.5 ALKALINE PHOSPHATASE (BEAKER) (test code = 346) 75 U/L 40-150 AST (SGOT) (BEAKER) (test code = 353) 19 U/L 5-34 ALT (SGPT) (BEAKER) (test code = 347) 27 U/L 6-55 CBC W/PLT COUNT & AUTO [id number] 18:22:00* Test Item Value Reference Range Interpretation Comments WHITE BLOOD CELL COUNT (BEAKER) (test code = 775) 10.5 K/ L 4.0- 10.0 H RED BLOOD CELL COUNT (BEAKER) (test code = 761) 4.92 M/ L 4.20-5 .80 HEMOGLOBIN (BEAKER) (test code = 410) 16.0 GM/DL 13.0-16.8 HEMATOCRIT (BEAKER) (test code = 411) 45.7 % 40.0-50.0 MEAN CORPUSCULAR VOLUME (BEAKER) (test code = 753) 93.0 fL 82. 0-98.0 MEAN CORPUSCULAR HEMOGLOBIN (BEAKER) (test code = 751) 32.5 pg 27.0-33.0 MEAN CORPUSCULAR HEMOGLOBIN CONC (BEAKER) (test code = 752) 35.0 GM/DL 32.0-36.0 RED CELL DISTRIBUTION WIDTH (BEAKER) (test code = 412) 12.9 % 10.3-14.2 PLATELET COUNT (BEAKER) (test code = 756) 143 K/CU MM 150-430 L MEAN PLATELET VOLUME (BEAKER) (test code = 754) 9.3 fL 6.5-10 .5 NUCLEATED RED BLOOD CELLS (BEAKER) (test code = 413) 0 /100 WBC 0 -0 NEUTROPHILS RELATIVE PERCENT (BEAKER) (test code = 429) 84 % LYMPHOCYTES RELATIVE PERCENT (BEAKER) (test code = 430) 9 % MONOCYTES RELATIVE PERCENT (BEAKER) (test code = 431) 5 % EOSINOPHILS RELATIVE PERCENT (BEAKER) (test code = 432) 1 % BASOPHILS RELATIVE PERCENT (BEAKER) (test code = 437) 0 % NEUTROPHILS ABSOLUTE COUNT (BEAKER) (test code = 670) 8.86 K/ L 1.80-8.00 H LYMPHOCYTES ABSOLUTE COUNT (BEAKER) (test code = 414) 0.97 K/ L 1.48-4.50 L MONOCYTES ABSOLUTE COUNT (BEAKER) (test code = 415) 0.55 K/ L 0. 00-1.30 EOSINOPHILS ABSOLUTE COUNT (BEAKER) (test code = 416) 0.15 K/ L 0.00-0.50 BASOPHILS ABSOLUTE COUNT (BEAKER) (test code = 417) 0.00 K/ L 0. 00-0.20 0.00POCT-GLUCOSE [id number] 13:39:00* Test Item Value Reference Range Interpretation Comments POC-GLUCOSE METER (BEAKER) (test code = 1538) 143 mg/dL 70-110 H TESTED AT [facility] [address] [facility] [address] POCT-GLUCOSE [id number] 08:01:00* Test Item Value Reference Range Interpretation Comments POC-GLUCOSE METER (BEAKER) (test code = 1538) 168 mg/dL 70-110 H TESTED AT [address] [address] BASIC METABOLIC [id number] 05:05:00* Test Item Value Reference Range Interpretation Comments SODIUM (BEAKER) (test code = 381) 138 meq/L 136-145 POTASSIUM (BEAKER) (test code = 379) 3.9 meq/L 3.5-5.1 CHLORIDE (BEAKER) (test code = 382) 102 meq/L 98-107 CO2 (BEAKER) (test code = 355) 26 meq/L 22-29 BLOOD UREA NITROGEN (BEAKER) (test code = 354) 11 mg/dL 7-21 CREATININE (BEAKER) (test code = 358) 0.91 mg/dL 0.57-1.25 GLUCOSE RANDOM (BEAKER) (test code = 652) 142 mg/dL 70-105 H CALCIUM (BEAKER) (test code = 697) 8.6 mg/dL 8.4-10.2 EGFR (BEAKER) (test code = 1092) 90 mL/min/1.73 sq m ESTIMATED GFR IS NOT ACCURATE CREATININE CLEARANCE IN PREDICTING GLOMERULAR FILTRATION RATE. ESTIMATED GFR IS NOT APPLICABLE FOR DIALYSIS PATIENTS. POCT-GLUCOSE [id number] 22:35:00* Test Item Value Reference Range Interpretation Comments POC-GLUCOSE METER (BEAKER) (test code = 1538) 132 mg/dL 70-110 H TESTED AT [address] [address] POCT-GLUCOSE [id number] 15:02:00* Test Item Value Reference Range Interpretation Comments POC-GLUCOSE METER (BEAKER) (test code = 1538) 188 mg/dL 70-110 H TESTED AT [address] [address] POCT-GLUCOSE [id number] 11:16:00* Test Item Value Reference Range Interpretation Comments POC-GLUCOSE METER (BEAKER) (test code = 1538) 233 mg/dL 70-110 H TESTED AT [address] [address] (MANUAL DIFFERENTIAL)2016-06-03 09:01:00* Test Item Value Reference Range Interpretation Comments NEUTROPHILS - REL (DIFF) (BEAKER) (test code = 1359) 60 % LYMPHOCYTES - REL (DIFF) (BEAKER) (test code = 1360) 30 % MONOCYTES - REL (DIFF) (BEAKER) (test code = 1361) 7 % EOSINOPHILS - REL (DIFF) (BEAKER) (test code = 1362) 3 % NEUTROPHILS - ABS (DIFF) (BEAKER) (test code = 1365) 3.00 K/ L 1 .80-8.00 LYMPHOCYTES - ABS (DIFF) (BEAKER) (test code = 1366) 1.50 K/ L 1 .48-4.50 MONOCYTES - ABS (DIFF) (BEAKER) (test code = 1367) 0.35 K/ L 0.0 0-1.30 EOSINOPHILS - ABS (DIFF) (BEAKER) (test code = 1368) 0.15 K/ L 0 .00-0.50 TOTAL COUNTED (BEAKER) (test code = 1351) 100 PLT MORPHOLOGY (BEAKER) (test code = 486) Normal RBC MORPHOLOGY (BEAKER) (test code = 762) Normal ATYPICAL LYMPHS(BEAKER) (test code = 1678) Present POCT-GLUCOSE [id number] 08:40:00* Test Item Value Reference Range Interpretation Comments POC-GLUCOSE METER (BEAKER) (test code = 1538) 228 mg/dL 70-110 H TESTED AT [facility] [address] [address] [id number] 05:48:00* Test Item Value Reference Range Interpretation Comments LIPASE (BEAKER) (test code = 749) 19 U/L 8-78 [id number] 05:48:00* Test Item Value Reference Range Interpretation Comments AMYLASE (BEAKER) (test code = 349) 52 U/L 25-125 COMPREHENSIVE METABOLIC [id number] 05:48:00* Test Item Value Reference Range Interpretation Comments TOTAL PROTEIN (BEAKER) (test code = 770) 6.4 gm/dL 6.0-8.3 ALBUMIN (BEAKER) (test code = 1145) 3.6 g/dL 3.5-5.0 ALKALINE PHOSPHATASE (BEAKER) (test code = 346) 86 U/L 40-150 BILIRUBIN TOTAL (BEAKER) (test code = 377) 0.5 mg/dL 0.2-1.2 SODIUM (BEAKER) (test code = 381) 140 meq/L 136-145 POTASSIUM (BEAKER) (test code = 379) 3.4 meq/L 3.5-5.1 L CHLORIDE (BEAKER) (test code = 382) 104 meq/L 98-107 CO2 (BEAKER) (test code = 355) 24 meq/L 22-29 BLOOD UREA NITROGEN (BEAKER) (test code = 354) 16 mg/dL 7-21 CREATININE (BEAKER) (test code = 358) 0.94 mg/dL 0.57-1.25 GLUCOSE RANDOM (BEAKER) (test code = 652) 231 mg/dL 70-105 H CALCIUM (BEAKER) (test code = 697) 8.4 mg/dL 8.4-10.2 AST (SGOT) (BEAKER) (test code = 353) 14 U/L 5-34 ALT (SGPT) (BEAKER) (test code = 347) 18 U/L 6-55 EGFR (BEAKER) (test code = 1092) 87 mL/min/1.73 sq m ESTIMATED GFR IS NOT ACCURATE CREATININE CLEARANCE IN PREDICTING GLOMERULAR FILTRATION RATE. ESTIMATED GFR IS NOT APPLICABLE FOR DIALYSIS PATIENTS. CBC W/PLT COUNT & AUTO [id number] 05:46:00* Test Item Value Reference Range Interpretation Comments WHITE BLOOD CELL COUNT (BEAKER) (test code = 775) 5.0 K/ L 4.0- 10.0 RED BLOOD CELL COUNT (BEAKER) (test code = 761) 4.39 M/ L 4.20-5 .80 HEMOGLOBIN (BEAKER) (test code = 410) 13.0 GM/DL 13.0-16.8 HEMATOCRIT (BEAKER) (test code = 411) 40.0 % 40.0-50.0 MEAN CORPUSCULAR VOLUME (BEAKER) (test code = 753) 91.2 fL 82. 0-98.0 MEAN CORPUSCULAR HEMOGLOBIN (BEAKER) (test code = 751) 29.6 pg 27.0-33.0 MEAN CORPUSCULAR HEMOGLOBIN CONC (BEAKER) (test code = 752) 32.4 GM/DL 32.0-36.0 RED CELL DISTRIBUTION WIDTH (BEAKER) (test code = 412) 12.8 % 10.3-14.2 PLATELET COUNT (BEAKER) (test code = 756) 128 K/CU MM 150-430 L MEAN PLATELET VOLUME (BEAKER) (test code = 754) 9.6 fL 6.5-10 .5 NUCLEATED RED BLOOD CELLS (BEAKER) (test code = 413) 0 /100 WBC 0 -0 0.00POCT-GLUCOSE [id number] 00:09:00* Test Item Value Reference Range Interpretation Comments POC-GLUCOSE METER (BEAKER) (test code = 1538) 266 mg/dL 70-110 H TESTED AT [facility] [address] [address] URINALYSIS W/ [id number] 20:24:00* Test Item Value Reference Range Interpretation Comments COLOR (BEAKER) (test code = 470) Light Yellow CLARITY (BEAKER) (test code = 469) Clear SPECIFIC GRAVITY UA (BEAKER) (test code = 468) 1.027 1.001-1 .035 PH UA (BEAKER) (test code = 467) 6.0 5.0-8.0 PROTEIN UA (BEAKER) (test code = 464) 20 mg/dL Negative A GLUCOSE UA (BEAKER) (test code = 365) >1000 mg/dL Negative A KETONES UA (BEAKER) (test code = 371) Negative Negative BILIRUBIN UA (BEAKER) (test code = 462) Negative Negative BLOOD UA (BEAKER) (test code = 461) Negative Negative NITRITE UA (BEAKER) (test code = 465) Negative Negative LEUKOCYTE ESTERASE UA (BEAKER) (test code = 466) Negative Negat adán UROBILINOGEN UA (BEAKER) (test code = 463) 0.2 mg/dL 0.2-1.0 RBC UA (BEAKER) (test code = 519) < /HPF WBC UA (BEAKER) (test code = 520) 1 /HPF SQUAMOUS EPITHELIAL (BEAKER) (test code = 516) < /HPF SOURCE(BEAKER) (test code = 2795) Urine, Clean Catch BASIC METABOLIC [id number] 18:51:00* Test Item Value Reference Range Interpretation Comments SODIUM (BEAKER) (test code = 381) 134 meq/L 136-145 L POTASSIUM (BEAKER) (test code = 379) 3.4 meq/L 3.5-5.1 L Specimen slightly hemolyzed CHLORIDE (BEAKER) (test code = 382) 98 meq/L 98-107 CO2 (BEAKER) (test code = 355) 21 meq/L 22-29 L BLOOD UREA NITROGEN (BEAKER) (test code = 354) 20 mg/dL 7-21 CREATININE (BEAKER) (test code = 358) 1.25 mg/dL 0.57-1.25 Specimen slightly hemolyzed GLUCOSE RANDOM (BEAKER) (test code = 652) 501 mg/dL 70-105 HH CALCIUM (BEAKER) (test code = 697) 9.3 mg/dL 8.4-10.2 EGFR (BEAKER) (test code = 1092) 62 mL/min/1.73 sq m ESTIMATED GFR IS NOT ACCURATE CREATININE CLEARANCE IN PREDICTING GLOMERULAR FILTRATION RATE. ESTIMATED GFR IS NOT APPLICABLE FOR DIALYSIS PATIENTS. HEPATIC FUNCTION [id number] 18:49:00* Test Item Value Reference Range Interpretation Comments TOTAL PROTEIN (BEAKER) (test code = 770) 7.4 gm/dL 6.0-8.3 Specimen slightly hemolyzed ALBUMIN (BEAKER) (test code = 1145) 3.9 g/dL 3.5-5.0 Specimen slightly hemolyzed BILIRUBIN TOTAL (BEAKER) (test code = 377) 0.3 mg/dL 0.2-1.2 Specimen slightly hemolyzed BILIRUBIN DIRECT (BEAKER) (test code = 706) < mg/dL 0.1-0.5 L Specimen slightly hemolyzed ALKALINE PHOSPHATASE (BEAKER) (test code = 346) 140 U/L 40-150 AST (SGOT) (BEAKER) (test code = 353) 14 U/L 5-34 Specimen slightly hemolyzed ALT (SGPT) (BEAKER) (test code = 347) 19 U/L 6-55 Specimen slightly hemolyzed Specimen markedly [id number] 18:39:00* Test Item Value Reference Range Interpretation Comments LIPASE (BEAKER) (test code = 749) 38 U/L 8-78 [id number] 18:39:00* Test Item Value Reference Range Interpretation Comments AMYLASE (BEAKER) (test code = 349) 57 U/L 25-125 Specimen slightly hemolyzed CBC W/PLT COUNT & AUTO [id number] 18:20:00* Test Item Value Reference Range Interpretation Comments WHITE BLOOD CELL COUNT (BEAKER) (test code = 775) 4.8 K/ L 4.0- 10.0 RED BLOOD CELL COUNT (BEAKER) (test code = 761) 4.19 M/ L 4.20-5 .80 L HEMOGLOBIN (BEAKER) (test code = 410) 14.0 GM/DL 13.0-16.8 HEMATOCRIT (BEAKER) (test code = 411) 37.8 % 40.0-50.0 L MEAN CORPUSCULAR VOLUME (BEAKER) (test code = 753) 90.2 fL 82. 0-98.0 MEAN CORPUSCULAR HEMOGLOBIN (BEAKER) (test code = 751) 33.3 pg 27.0-33.0 H MEAN CORPUSCULAR HEMOGLOBIN CONC (BEAKER) (test code = 752) 36.9 GM/DL 32.0-36.0 H RED CELL DISTRIBUTION WIDTH (BEAKER) (test code = 412) 12.7 % 10.3-14.2 PLATELET COUNT (BEAKER) (test code = 756) 131 K/CU MM 150-430 L MEAN PLATELET VOLUME (BEAKER) (test code = 754) 9.7 fL 6.5-10 .5 NUCLEATED RED BLOOD CELLS (BEAKER) (test code = 413) 0 /100 WBC 0 -0 NEUTROPHILS RELATIVE PERCENT (BEAKER) (test code = 429) 55 % LYMPHOCYTES RELATIVE PERCENT (BEAKER) (test code = 430) 36 % MONOCYTES RELATIVE PERCENT (BEAKER) (test code = 431) 7 % EOSINOPHILS RELATIVE PERCENT (BEAKER) (test code = 432) 2 % BASOPHILS RELATIVE PERCENT (BEAKER) (test code = 437) 1 % NEUTROPHILS ABSOLUTE COUNT (BEAKER) (test code = 670) 2.65 K/ L 1.80-8.00 LYMPHOCYTES ABSOLUTE COUNT (BEAKER) (test code = 414) 1.73 K/ L 1.48-4.50 MONOCYTES ABSOLUTE COUNT (BEAKER) (test code = 415) 0.33 K/ L 0. 00-1.30 EOSINOPHILS ABSOLUTE COUNT (BEAKER) (test code = 416) 0.11 K/ L 0.00-0.50 BASOPHILS ABSOLUTE COUNT (BEAKER) (test code = 417) 0.03 K/ L 0. 00-0.20 0.00POCT-GLUCOSE [id number] 18:02:00* Test Item Value Reference Range Interpretation Comments POC-GLUCOSE METER (BEAKER) (test code = 1538) 442 mg/dL 70-110 HH Notified JENNY RESENDEZ/TESTED AT [facility] [address] [address] HEPATIC FUNCTION [id number] 17:17:00* Test Item Value Reference Range Interpretation Comments TOTAL PROTEIN (BEAKER) (test code = 770) 7.8 gm/dL 6.0-8.3 Specimen moderately hemolyzed ALBUMIN (BEAKER) (test code = 1145) 4.0 g/dL 3.5-5.0 Specimen moderately hemolyzed BILIRUBIN TOTAL (BEAKER) (test code = 377) 0.4 mg/dL 0.2-1.2 Specimen moderately hemolyzed BILIRUBIN DIRECT (BEAKER) (test code = 706) < mg/dL 0.1-0.5 L Specimen moderately hemolyzed ALKALINE PHOSPHATASE (BEAKER) (test code = 346) 84 U/L 40-150 AST (SGOT) (BEAKER) (test code = 353) 25 U/L 5-34 Specimen moderately hemolyzed ALT (SGPT) (BEAKER) (test code = 347) 35 U/L 6-55 Specimen moderately hemolyzed Specimen markedly [id number] 17:12:00* Test Item Value Reference Range Interpretation Comments LIPASE (BEAKER) (test code = 749) 38 U/L 8-78 [id number] 17:12:00* Test Item Value Reference Range Interpretation Comments AMYLASE (BEAKER) (test code = 349) 59 U/L 25-125 Specimen moderately hemolyzed BASIC METABOLIC [id number] 17:12:00* Test Item Value Reference Range Interpretation Comments SODIUM (BEAKER) (test code = 381) 134 meq/L 136-145 L POTASSIUM (BEAKER) (test code = 379) 3.6 meq/L 3.5-5.1 Specimen moderately hemolyzed CHLORIDE (BEAKER) (test code = 382) 100 meq/L 98-107 CO2 (BEAKER) (test code = 355) 16 meq/L 22-29 L BLOOD UREA NITROGEN (BEAKER) (test code = 354) 17 mg/dL 7-21 CREATININE (BEAKER) (test code = 358) 1.37 mg/dL 0.57-1.25 H Specimen moderately hemolyzed GLUCOSE RANDOM (BEAKER) (test code = 652) 358 mg/dL 70-105 H CALCIUM (BEAKER) (test code = 697) 9.4 mg/dL 8.4-10.2 EGFR (BEAKER) (test code = 1092) 56 mL/min/1.73 sq m ESTIMATED GFR IS NOT ACCURATE CREATININE CLEARANCE IN PREDICTING GLOMERULAR FILTRATION RATE. ESTIMATED GFR IS NOT APPLICABLE FOR DIALYSIS PATIENTS. CBC W/PLT COUNT & AUTO [id number] 16:47:00* Test Item Value Reference Range Interpretation Comments WHITE BLOOD CELL COUNT (BEAKER) (test code = 775) 5.9 K/ L 4.0- 10.0 RED BLOOD CELL COUNT (BEAKER) (test code = 761) 4.46 M/ L 4.20-5 .80 HEMOGLOBIN (BEAKER) (test code = 410) 15.0 GM/DL 13.0-16.8 HEMATOCRIT (BEAKER) (test code = 411) 39.6 % 40.0-50.0 L MEAN CORPUSCULAR VOLUME (BEAKER) (test code = 753) 88.7 fL 82. 0-98.0 MEAN CORPUSCULAR HEMOGLOBIN (BEAKER) (test code = 751) 33.7 pg 27.0-33.0 H MEAN CORPUSCULAR HEMOGLOBIN CONC (BEAKER) (test code = 752) 38.0 GM/DL 32.0-36.0 H RED CELL DISTRIBUTION WIDTH (BEAKER) (test code = 412) 12.4 % 10.3-14.2 PLATELET COUNT (BEAKER) (test code = 756) 158 K/CU MM 150-430 MEAN PLATELET VOLUME (BEAKER) (test code = 754) 9.3 fL 6.5-10 .5 NUCLEATED RED BLOOD CELLS (BEAKER) (test code = 413) 0 /100 WBC 0 -0 NEUTROPHILS RELATIVE PERCENT (BEAKER) (test code = 429) 59 % LYMPHOCYTES RELATIVE PERCENT (BEAKER) (test code = 430) 30 % MONOCYTES RELATIVE PERCENT (BEAKER) (test code = 431) 8 % EOSINOPHILS RELATIVE PERCENT (BEAKER) (test code = 432) 3 % BASOPHILS RELATIVE PERCENT (BEAKER) (test code = 437) 1 % NEUTROPHILS ABSOLUTE COUNT (BEAKER) (test code = 670) 3.45 K/ L 1.80-8.00 LYMPHOCYTES ABSOLUTE COUNT (BEAKER) (test code = 414) 1.74 K/ L 1.48-4.50 MONOCYTES ABSOLUTE COUNT (BEAKER) (test code = 415) 0.46 K/ L 0. 00-1.30 EOSINOPHILS ABSOLUTE COUNT (BEAKER) (test code = 416) 0.19 K/ L 0.00-0.50 BASOPHILS ABSOLUTE COUNT (BEAKER) (test code = 417) 0.03 K/ L 0. 00-0.20 0.00CHEST SINGLE (PORTABLE) [place] [address] Patient Name: DC BARNHART MR #: [id number] : 1970 Age/Sex: 47/M Req #: [id number] Adm Physician: MINOO WALSH MD Ordered by: TITUS MATA MD Report #: [id number] Location: [facility] Room/Bed: [place] [address] Procedure: 97 DX/CHEST SINGLE (PORTABLE) Exam Date: [...] TO: TITUS MATA MD CHEST SINGLE (PORTABLE) [place] [address] Patient Name: DC BARNHART MR #: [id number] : 1970 Age/Sex: 46/M Req #: [id number] Adm Physician: Ordered by: RONI MALONE MODELING ANALYST Report #: [id number] Location: ER Room/Bed: Procedure: [id number] DX/CHEST SINGLE (PORTABLE) Exam Date: 06/20/17 Exam Time: 1215 REPORT STAT US: Signed PROCEDURE: A single AP view of the chest. COMPARISON: [facility], DX, CHEST SINGLE (PORTABLE), 12/02/2016, 11:55. IND [...] 1. Borderline cardiomegaly. No acute decompensation. Analia Veronica M.D. Dictated by: Analia Veronica M.D. on 06/20/2017 at 12:44 Electronically approved by: Analia Veronica M.D. on 06/20/2017 at 12:44 Dictated By: EVELYN VERONICA MD, MD 1244 Transcribed By: NICOLE on 06/20/17 1 288 COPY TO: RONI MALONE NP TESTICULAR [place] [address] Patient Name: DC BARNHART MR #: [id number] : 1970 Age/Sex: 46/M Req #: [id number] Adm Physician: Ordered by: JASVIR BUENO MD Report #: [id number] Location: ER Room/Bed: Procedure: [id number] US/US TESTICULAR Exam Date: 03/04/17 Exam Time: [...] JASVIR BUENO MD US TESTICULAR [employer] [place] [address] Patient Name: DC BARNHART MR #: [id number] : 1970 Age/Sex: 46/M Req #: [id number] Adm Physician: Ordered by: JASVIR BUENO MD Report #: [id number] Location: ER Room/Bed: Procedure: [id number] US/US TESTICULAR DOPPLER LTD Exam Date: 03/04/17 [...] TO: JASVIR BUENO MD CHEST SINGLE (PORTABLE) [place] [address] Patient Name: DC BARNHART MR #: [id number] : 1970 Age/Sex: 46/M Req #: [id number] Adm Physician: Ordered by: RONI MALONE NP Report #: [id number] Location: ER Room/Bed: Procedure: [id number] DX/CHEST SINGLE (PORTABLE) Exam Date: 12/02/16 Exam [...]
[2019-08-06] MEDS ORDERED: ASPIRIN 81 MG CHEW TAB PO ONE ×3 (21:15→22:45)
--- NOTE | 2019-08-06 21:25 | NUR ---
Per MD pollock to administer 324 ASA.
[2019-08-06] MEDS ORDERED: METOPROLOL TARTRATE INJ 1 MG/ML VIAL IV PRN (21:30)
[2019-08-06] MEDS ORDERED: NITROGLYCERIN 0.4 MG SUBL SL ONE (21:30)
--- NOTE | 2019-08-06 21:37 | Emergency Department Note ---
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 Historian: Patient Arrival Mode: Car Onset (how long ago): hour(s) Location: substernal Quality: pressure/ "crushing" Radiation: non-radiation Severity: severe Onset quality: sudden Duration (how long): hour(s) Timing of current episode: constant Progression: waxing and waning Chronicity: new Relieving factors: none Exacerbating factors: none Associated symptoms: diaphoresis Past Medical/Family History Physician Review I have reviewed the patient's past medical and family history. Any updates have been documented here. Past Medical History Recent Fever: No Clinical Suspicion of Infectio: No New/Unexplained Change in Ment: No Past Medical History: Hypertension, Diabetes, CHF, Hypothyroidism, Cancer, Hyperlipedemia, Chronic Kidney Disease, Chronic Back Pain Other Medical History: ECZEMA OBSTRUCTIVE SLEEP APNEA NON-HODGINS LYMPHOMA(REMISSION 2010) OBESITY PANCREATITIS HERNIATED DISC FILUCULAR LYMPHOMA RENAL FAILURE X2 CHRONIC NECK PAIN DKA Past Surgical History: Knee Replacement Other Surgery: RIGHT ELBOW SX, LEFT LEG SURGERY, LAPAROTOMY Social History Smoking Cessation: Former smoker Alcohol Use: Social Any Illegal Drug Use: No TB Exposure/Symptoms: No Family History Family history of heart diseas: Yes Other Last Tetanus: UTD Any Pre-Existing Lines (PICC,: No Is patient up to date on immun: Yes Review of Systems Review of Systems Constitutional: as per HPI, diaphoresis EENTM: no symptoms Cardiovascular: chest pain Respiratory: as per HPI, dyspnea on exertion Gastrointestinal: no symptoms Genitourinary: no symptoms Musculoskeletal: no symptoms Neurological: no symptoms Psychological: no symptoms Endocrine: no symptoms Hematological/Lymphatic: no symptoms Review of other systems All other systems reviewed and negative. Physical Exam Related Data Allergies: Coded Allergies: NSAIDS (Non-Steroidal Anti-Inflamma (Verified Allergy, Unknown, 12/07/18) sulfamethoxazole (Verified Allergy, Unknown, 01/07/16) trimethoprim (Verified Allergy, Unknown, 01/07/16) hydrocodone (Verified Adverse Reaction, Unknown, PALPITATIONS, TACHYCARDIA, 10/30/17) Triage Vital Signs Vital Signs Date Time Temp Pulse Resp B/P (MAP) Pulse Ox O2 Delivery O2 Flow Rate FiO2 5/18/20 21:13 88 20 217/131 98 Vital signs reviewed: Yes Physical Exam CONSTITUTIONAL Constitutional: well-developed, morbidly obese, diaphoretic, distressed HENT HENT: normocephalic, atraumatic, oropharynx clear/moist, nose normal HENT L/R: left ext ear normal, right ext ear normal EYES Eyes: PERRL, conjunctivae normal NECK Neck: ROM normal PULMONARY Pulmonary: effort normal, breath sounds normal CARDIOVASCULAR Cardiovascular: regular rhythm, heart sounds normal, capillary refill normal, normal rate GASTROINTESTINAL Abdominal: soft, nontender, bowel sounds normal GENITOURINARY Genitourinary: exam deferred SKIN Skin: warm MUSCULOSKELETAL Musculoskeletal: ROM normal NEUROLOGICAL Neurological: alert, oriented x 3, no gross motor or sensory deficits PSYCHOLOGICAL Psychological: mood/affect normal, judgement normal Results Laboratory Lab results reviewed: Yes Laboratory comments Laboratory Tests Test 08/06/19 23:37 08/06/19 21:23 White Blood Count 5.54 x10e3/uL (4.8-10.8) Red Blood Count 5.37 x10e6/uL (4.3-5.7) Hemoglobin 17.0 g/dL (14.0-18.0) Hematocrit 47.4 % (38.2-49.6) Mean Corpuscular Volume 88.3 fL (81-99) Mean Corpuscular Hemoglobin 31.7 pg (28-32) Mean Corpuscular Hemoglobin Concent 35.9 g/dL (31-35) Red Cell Distribution Width 13.4 % (11.7-14.4) Platelet Count 125 x10e3/uL (140-360) Neutrophils (%) (Auto) 63.9 % (38.7-80.0) Lymphocytes (%) (Auto) 27.6 % (18.0-39.1) Monocytes (%) (Auto) 6.1 % (4.4-11.3) Eosinophils (%) (Auto) 1.3 % (0.0-6.0) Basophils (%) (Auto) 0.4 % (0.0-1.0) Neutrophils # (Auto) 3.5 (2.1-6.9) Lymphocytes # (Auto) 1.5 (1.0-3.2) Monocytes # (Auto) 0.3 (0.2-0.8) Eosinophils # (Auto) 0.1 (0.0-0.4) Basophils # (Auto) 0.0 (0.0-0.1) Absolute Immature Granulocyte (auto 0.04 x10e3/uL (0-0.1) D-Dimer Quantitative (PE/DVT) 0.54 ug/mLFEU (0.00-0.45) Sodium Level 140 mmol/L (136-145) Potassium Level 4.1 mmol/L (3.5-5.1) Chloride Level 103 mmol/L (98-107) Carbon Dioxide Level 19 mmol/L (22-29) Anion Gap 22.1 mmol/L (8-16) Blood Urea Nitrogen 17 mg/dL (7-26) Creatinine 1.00 mg/dL (0.72-1.25) Estimat Glomerular Filtration Rate > 60 ML/MIN (60-) BUN/Creatinine Ratio 17 (6-25) Glucose Level 265 mg/dL (74-118) Calcium Level 9.3 mg/dL (8.4-10.2) Total Bilirubin 0.4 mg/dL (0.2-1.2) Aspartate Amino Transf (AST/SGOT) 20 IU/L (5-34) Alanine Aminotransferase (ALT/SGPT) 23 IU/L (0-55) Alkaline Phosphatase 90 IU/L (40-150) Creatine Kinase 125 IU/L (30-200) Creatine Kinase MB 2.80 ng/mL (0-5.0) Troponin I 0.007 ng/mL (0-0.300) B-Type Natriuretic Peptide 60.9 pg/mL (0-100) Total Protein 7.9 g/dL (6.5-8.1) Albumin 3.5 g/dL (3.5-5.0) Globulin 4.4 g/dL (2.3-3.5) Albumin/Globulin Ratio 0.8 (0.8-2.0) Imaging Imaging results reviewed: Yes Impressions IMPRESSION: Low lung lungs with central vascular congestion. Mild patchy bibasilar opacities, likely atelectasis Procedures 12 Lead ECG Interpretation Credit Collections Analyst: Interpreted by ED physician Prior MOLECULAR PATHOLOGIST tracings: reviewed Rhythm: sinus rhythm Rate: normal QRS axis: normal ST segments normal: Yes T waves normal: Yes Clinical Impression: normal ECG Critical Care Time Total Critical Care Time (min): 35 Time ED Physician saw patient: 22:20 Critical care time exclusive o: separately billable procedures Subsequent provider I assumed direction of critical care for this patient from another provider of my specialty. Comments Pt arrived to the ED with complaints of chest pain, diaphoretic in the ED, significant co-morbidities with highly suspicious chest pain Two large bore IVs put by me, pt given ASA and nitro (after viewing EKG) Cardiology consulted immediately given concerns of unstable angina Pt in HTN emergency- IV Nitro and lopressor given Clinical Decision Tools HEART Score HEART Scort: HEART Scort Response (Comments) Value History Highly suspicious [address]-depression 2 Age 45 - 65 1 Risk factors > or = 3 risk factors 2 Troponin < or = to normal limit Total 7 Assessment & Plan Assessment & Plan Problems: (1) Unstable angina (2) Hypertensive emergency (3) Chest pain Assessment & Plan cbc, cmp, cardiac markers EKG, CXR admissions Depart Disposition: ADMITTED Last Vital Signs Date Time Temp Pulse Resp B/P (MAP) Pulse Ox O2 Delivery O2 Flow Rate FiO2 08/06/19 21:13 88 20 217/131 98 Home Meds Active Scripts Hydroxyzine Hcl (HYDROXYZINE HCL) 25 Mg Tablet, 50 MG PO Q8HR PRN for ITCHING for 14 Days Prov:SLIM HOPKINS NP 10/03/16 Metoclopramide Hcl (METOCLOPRAMIDE HCL) 10 Mg Tablet, 10 MG PO ACHS for 30 Days Prov:SLIM HOPKINS NP 10/03/16 [Insulin Detemir] 100 UNIT/ML PEN No Conflict Check, 20 UNIT SQ Q12HR for 30 Days Prov:SLIM HOPKINS NP 10/03/16 Carvedilol (COREG) 3.125 Mg Tab, 12.5 MG PO Q12HR for 30 Days, TAB Prov:SLIM HOPKINS NP 10/03/16 Reported Medications Tizanidine Hcl (TIZANIDINE HCL) 4 Mg Tablet, 4 MG PO Q8HR, TAB 02/19/19 Trazodone Hcl (TRAZODONE HCL) 50 Mg Tablet, 50 MG PO HS, #30 TAB 02/19/19 Empagliflozin (Jardiance) 25 Mg Tablet, 25 PO DAILY 01/05/19 Spironolactone (SPIRONOLACTONE) 25 Mg Tablet, 25 MG PO BID, #60 TAB 01/05/19 Valsartan/Hydrochlorothiazide (Valsartan-Hctz 320-25 mg Tab) 1 Each Tablet, PO DAILY PRN for BLOOD PRESSURE 01/05/19 Hydromorphone Hcl (HYDROMORPHONE HCL) 2 Mg Tablet, 4 MG PO Q8H PRN for severe pain, TAB 01/05/19 Clotrimazole (CLOTRIMAZOLE) 15 Gm Cream..g., 1 % TOP for RASH, EACH 10/01/16 Lisinopril (LISINOPRIL) 10 Mg Tablet, 40 MG PO DAILY, #30 TAB 10/01/16 Amlodipine Besylate (AMLODIPINE BESYLATE) 10 Mg Tablet, 10 MG PO DAILY, #30 TAB 10/01/16 Gabapentin (GABAPENTIN) 300 Mg Capsule, 600 MG PO HS, #60 CAP 10/01/16 Albuterol Sulf* (PROAIR HFA INHALER*) 8.5 Gm Inh, PRN for SHORTNESS OF BREATH 10/01/16 Cetirizine Hcl/Pseudoephedrine ([employer] ALLERGY RELIEF-D TABLET) 1 Each Tab.er.12h, 150 MG PO PRN 10/01/16 Sertraline Hcl (ZOLOFT) 50 Mg Tablet, 100 MG PO DAILY, #30 TAB 01/29/16 Clopidogrel Bisulfate (CLOPIDOGREL) 75 Mg Tablet, 75 MG PO DAILY, #30 TAB 11/07/15 Pantoprazole Sodium* (PROTONIX) 40 Mg Tablet.dr, 40 MG PO DAILY, TAB 11/07/15 Levothyroxine Sodium (LEVOTHYROXINE SODIUM) 50 Mcg Tablet, 100 MCG PO DAILY, #30 TAB 11/07/15 Ursodiol (SUDHAKAR) 250 Mg Tablet, 250 MG PO QAM 09/10/13 Fenofibrate (FENOFIBRATE) 160 Mg Tablet, 48 MG PO DAILY 09/10/13 Atorvastatin Calcium (ATORVASTATIN CALCIUM) 40 Mg Tablet, 40 MG PO DAILY 09/10/13 Medications in the ED Aspirin 81 mg PRN ONCE PO ; Start 08/06/19 at 21:15; Stop 08/06/19 at 21:16 OMEGA LLANOS DO August 06, 2019 21:37
[2019-08-06] MEDS: NITROGLYCERIN 0.4 MG SUBL SL PRN (21:39)
[2019-08-06 21:44] LABS: BASOPHILS % 0.4 % (0.0-1.0); EOSINOPHILS # (AUTO) 0.1 (0.0-0.4); EOSINOPHILS % 1.3 % (0.0-6.0); HEMATOCRIT 47.4 % (38.2-49.6); LYMPHOCYTES # (AUTO) 1.5 (1.0-3.2); LYMPHOCYTES % 27.6 % (18.0-39.1); MEAN CORPUSCULAR HEMOGLOBIN 31.7 pg (28-32); MEAN CORPUSCULAR HGB CONC 35.9 g/dL (31-35); MEAN CORPUSCULAR VOLUME 88.3 fL (81-99); MONOCYTES # (AUTO) 0.3 (0.2-0.8); MONOCYTES % 6.1 % (4.4-11.3); NEUTROPHILS # (AUTO) 3.5 (2.1-6.9); NEUTROPHILS % 63.9 % (38.7-80.0); PLATELET COUNT 125 x10e3/uL (140-360); RED BLOOD COUNT 5.37 x10e6/uL (4.3-5.7); RED CELL DISTRIBUTION WIDTH 13.4 % (11.7-14.4)
[2019-08-06 21:59] LABS: ALANINE AMINOTRANSFERASE 23 IU/L (0-55); ALBUMIN 3.5 g/dL (3.5-5.0); ALBUMIN/GLOBULIN RATIO 0.8 (0.8-2.0); ALKALINE PHOSPHATASE 90 IU/L (40-150); ANION GAP 22.1 mmol/L (8-16); BLOOD UREA NITROGEN 17 mg/dL (7-26); BUN/CREATININE RATIO 17 (6-25); CALCIUM 9.3 mg/dL (8.4-10.2); CARBON DIOXIDE 19 mmol/L (22-29); CHLORIDE 103 mmol/L (98-107); CREATINE KINASE 125 IU/L (30-200); EST GLOMERULAR FILTRATION RATE > 60 ML/MIN (60-); GLUCOSE 265 mg/dL (74-118); POTASSIUM 4.1 mmol/L (3.5-5.1); SODIUM 140 mmol/L (136-145)
--- NOTE | 2019-08-06 22:06 | Diagnostic Imaging Report ---
EXAMINATION: CHEST SINGLE (PORTABLE) INDICATION: Chest pain. COMPARISON: Chest radiograph 01/08/2019. CT abdomen/pelvis 02/18/2019. FINDINGS: TUBES and LINES: None. LUNGS: Low lung volumes with central vascular congestion. Mild patchy bibasilar opacities. No evidence of lobar consolidation. PLEURA: No pleural effusion or pneumothorax. HEART AND MEDIASTINUM: The cardiomediastinal silhouette is unremarkable. BONES AND SOFT TISSUES: No acute osseous lesion. Soft tissues are unremarkable. UPPER ABDOMEN: No free air under the diaphragm. IMPRESSION: Low lung lungs with central vascular congestion. Mild patchy bibasilar opacities, likely atelectasis Signed by: Dr. Iker Pérez MD on 08/06/2019 10:02 PM
[2019-08-06] MEDS ORDERED: MORPHINE SULFATE 2 MG/ML SYR 1ML IV STA (22:20)
[2019-08-06] MEDS ORDERED: ONDANSETRON HCL INJ 2MG/ML 2ML 2 MG/ML VIAL IV STA (22:20)
--- NOTE | 2019-08-06 23:21 | NUR ---
Patient resting with no distress noted at this time. Will continue to monitor patient.
--- NOTE | 2019-08-06 23:46 | NUR ---
Patient states he does not have to urinate at this time. Will collect sample when patient is able to void.
[2019-08-07] MEDS ORDERED: CARVEDILOL12.5 MG PO (00:20)
[2019-08-07] MEDS ORDERED: [UNRECOGNIZED DRUG - OTHER] SC (00:21)
[2019-08-07] MEDS ORDERED: METOPROLOL TARTRATE 25 MG TAB PO ONE ×2 (01:00→01:15)
--- NOTE | 2019-08-07 01:05 | NUR ---
Dr. Rao at bedside assessing patient.
[2019-08-07] MEDS ORDERED: HYDRALAZINE HCL 20 MG/ML VIAL IV PRN (01:30)
--- NOTE | 2019-08-07 01:40 | NUR ---
Patient stated he wanted to leave against medical advice because his chest pain was not controlled and he had pain medication at home. Patient advised and informed benefits of admission considering blood pressure at the time was elevated at 196/117. Patient also notified there was still CT scan ordered by Dr. Rao. Patient agreed to stay and have CT scan. Patient was medicated for elevated blood pressure. Will continue to monitor patient.
[2019-08-07] MEDS ORDERED: IOPAMIDOL 370 MG/ML 200 ML INFUS..BTL INJ ONE (01:44)
[2019-08-07] MEDS ORDERED: SODIUM CHLORIDE 0.9% 50ML 50 ML ONE (01:44)
[2019-08-07] MEDS: NITROGLYCERIN 0.4 MG SUBL SL PRN ×3 (02:09→02:28)
--- NOTE | 2019-08-07 02:40 | NUR ---
Patient c/o chest pain. Repeat EKG done and give to ER MD for evaluation. Dr. Rao paged at this time and awaiting call back.
[2019-08-07 03:04] LABS: AMPHETAMINES SCREEN,URINE NEGATIVE (NEGATIVE); BENZODIAZEPINES SCREEN,URINE NEGATIVE (NEGATIVE); BILIRUBIN,URINE NEGATIVE (NEGATIVE); CLARITY,URINE CLEAR (CLEAR); COLOR,URINE YELLOW (YELLOW); KETONES,URINE NEGATIVE (NEGATIVE); LEUKOCYTE ESTERASE ,URINE NEGATIVE (NEGATIVE); NITRITE,URINE NEGATIVE (NEGATIVE); PHENCYCLIDINE SCREEN,URINE NEGATIVE (NEGATIVE); PROTEIN,URINE DIPSTICK >=300 (NEGATIVE); URINE UROBILINOGEN 0.2 mg/dL (0.2 - 1)
[2019-08-07 03:10] LABS: BACTERIA,URINE RARE /HPF; EPITHELIAL CELLS,URINE FEW /LPF; HYALINE CASTS 0-1 (0-1); RBC,URINE 0-5 /HPF (0-5); WBC,URINE (MAN) 0-5 /HPF (0-5)
[2019-08-07 03:11] LABS: CALCIUM OXALATE CRYSTALS,UR FEW (FEW)
--- NOTE | 2019-08-07 03:51 | NUR ---
Spoke to Dr. Rao regarding patient continuos complaints of chest pain without relief and elevated blood pressure. New orders obtained at this time.
--- NOTE | 2019-08-07 03:57 | Diagnostic Imaging Report ---
EXAMINATION: CT of the chest with contrast, PE protocol. TECHNIQUE: Spiral CT images of the chest were performed from the lung apices through the level of the adrenal glands after the IV administration of 150 cc of Isovue 370. Thin section reconstructions were obtained with special concentration on the pulmonary arteries. Coronal and sagittal reformatted images were performed. COMPARISON: CT chest PE protocol 02/11/2018. CT abdomen/pelvis 02/18/2019. CLINICAL HISTORY:Left-sided chest pain. DISCUSSION: Pulmonary Arteries: The main pulmonary artery measures 3.4 cm. Lungs: Unchanged linear opacity in the left upper lobe, likely scarring. Scattered minimal dependent subsegmental atelectasis. No evidence of pneumonia or pulmonary edema. The central airways are patent. Pleura: There is no evidence of pleural effusion or pneumothorax. Heart and mediastinum: Visualized thyroid is unremarkable. Mild cardiomegaly. No pericardial effusion. Extensive multivessel atherosclerotic calcification of the coronary arteries. No mediastinal, hilar or axillary adenopathy. Subcentimeter paratracheal lymph nodes, likely reactive. Abdomen: Diffuse hepatic steatosis. Mild splenomegaly, measuring up to 14.3 cm. 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 Unchanged 2.4 cm partially exophytic hypodense lesion in the posterior spleen, which may represent a cyst or less likely a hemangioma. Bones and soft tissues: No aggressive lytic lesions. Degenerative disc changes in the thoracic spine. Unchanged mild loss of vertebral body height at T11 and minimal loss of vertebral body height anteriorly at T12. IMPRESSION: No evidence of pulmonary embolism to the level of the segmental pulmonary arteries. Enlarged main pulmonary artery, suggestive of pulmonary arterial hypertension. Extensive multivessel coronary atherosclerosis. Diffuse hepatic steatosis. Splenomegaly with unchanged perisplenic and perigastric varices. 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 Signed by: Dr. Iker Pérez MD on 08/07/2019 3:54 AM
[2019-08-07] MEDS ORDERED: LIDOCAINE 4% PATCH TP SCH (04:00)
[2019-08-07] MEDS ORDERED: AMLODIPINE BESYLATE 5 MG TAB PO SCH (04:00)
[2019-08-07 05:44] LABS: CREATINE KINASE MB 2.8 ng/mL (0-5.0)
--- NOTE | 2019-08-07 06:42 | NUR ---
Report to JENNY Aggarwal
--- NOTE | 2019-08-07 07:58 | NUR ---
spoke to pt who states he wants to go home; states he cannot wait for attending to see him to get more pain meds and would rather go home to take his own pain meds and go to another hosp that has rooms readily available; pt advised that attending would be paged and notified before pt could leave [facility] and pt states he is ok with that
--- NOTE | 2019-08-07 08:10 | NUR ---
spoke with dr lyman who states pt can leave [facility] if he wants just explain to pt risk/benefits of leaving/staying
--- NOTE | 2019-08-07 08:13 | NUR ---
rn spoke with pt regarding [facility] explaining risk/benefits of leaving/staying up to and including pt acknowledges the risks and states he wants to go through with [facility] and signs [facility] form
[2019-08-07 08:17] VITALS: BP 156/93
[2019-08-07] MEDS ORDERED: AMLODIPINE BESYLATE 5 MG TAB PO ONE (09:00)
[2019-08-07] MEDS ORDERED: METOPROLOL TARTRATE 50 MG TAB PO SCH (09:00)
[2019-08-07] MEDS ORDERED: ASPIRIN 81 MG CHEW TAB PO SCH (09:00)
--- NOTE | 2019-08-07 16:15 | Progress Note ---
DATE: 08/07/2019 Cardiology Progress Note REASON FOR CONSULTATION: Chest pain and uncontrolled hypertension. HISTORY OF PRESENT ILLNESS: A 48-year-old man with history of follicular lymphoma on remission, cardiomyopathy, cervical radiculopathy and chronic pain on opiate, obstructive sleep apnea, chronic kidney disease, hypertension, presents with complaints of chest discomfort, radiating to left upper extremity and shoulder, worse with movements, in the setting of systolic blood pressure on admission of 217/131. He states he has not been following up with primary care provider recently after he has switched insurances. He reports chronic opioid use. He denies any exertional complaints. Symptom onset was 08/06/2019, around 7 p.m., has persisted with partial improvement with morphine and nitroglycerin. The patient continues to request opioid. REVIEW OF SYSTEMS: A 12 system review negative except for as noted above. ALLERGIES: NSAIDS, , HYDROCODONE, SULFAMETHOXAZOLE, AND TRIMETHOPRIM. SOCIAL HISTORY: Former smoker. Social alcohol use. Denies drug use. FAMILY HISTORY: Noncontributory. PHYSICAL EXAMINATION: VITAL SIGNS: Temperature 98.6, heart rate 80, respiratory rate 16, blood pressure 196/117, O2 saturation 98% on room air. GENERAL: No acute distress, alert. NECK: No JVD. CHEST: Clear to auscultation. CARDIOVASCULAR: Regular rate and rhythm. Normal S1, S2. No S3. No S4. No murmurs. No rubs. ABDOMEN: Soft, nontender. Bowel sounds positive. EXTREMITIES: Trace edema. CARDIOVASCULAR MEDICATIONS: Reviewed. 1. Metoprolol tartrate 25 mg p.o. x1. 2. Nitroglycerin p.r.n. 0.4 mg. 3. Aspirin 325 mg x1. 4. Morphine 6 mg IV x1. STUDIES: White blood cells 5.5, hemoglobin 17, platelets are 125. D-dimer 0.54. Sodium 140, potassium 4.1, chloride 103, bicarbonate 19, BUN 17, creatinine 1, calcium 9.3, glucose 265, AST 23, ALT 20, alkaline phosphatase 90. Troponin I 0.007, CK-MB 125. BNP 60. Total protein 7.9, albumin 3.5. ASSESSMENT: A 48-year-old man, presents with: 1. Hypertensive urgency. 2. Atypical chest pain. 3. Drug-seeking behavior in the setting of chronic reported back pain and cervical radiculopathy. 4. History of follicular lymphoma. 5. Reported history of cardiomyopathy. 6. Morbid obesity. RECOMMEND: 1. Metoprolol 50 mg every 8 hours with holding parameters. 2. Continue nitroglycerin. 3. Continue to trend cardiac enzymes. 4. Obtain echocardiogram. 5. Keep on telemetry. 6. Aspirin. 7. Elevated D-dimer. Schedule for CT. PE protocol. Eddie Hitchcock MD [facility]/MODL /[id number]
--- NOTE | 2019-08-07 16:30 | Discharge Summary ---
The patient came in last night with complaints of chest pain and hypertensive urgency. He was admitted overnight by the ER physician. Cardiology was consulted. Early this morning, the patient stated that he wanted to leave against medical advice. Nursing staff notified me and the patient signed appropriate documentation, left against medical advice. The patient was never seen or evaluated by me. The patient wanted increased pain medications. Despite that, the patient was educated about the risks and benefits of staying here for further evaluation and management, but the patient still was insistent on leaving and signed against medical advice. MD MONTSERRAT Jung/MODL /[id number]
--- NOTE | 2019-08-07 16:30 | Discharge Summary ---
The patient came in last night with complaints of chest pain, was admitted overnight. The patient was also found to have elevated blood pressure readings and was being treated for hypertension urgency. Early this morning, the patient wanted to leave and left against medical advice and signed appropriate documentation. I did not see or evaluate the patient when he came in overnight nor this morning. Nursing staff called me with the concerns of the patient, but he left against medical advice and signed appropriate documentation. MD MONTSERRAT Jung/MODL /[id number]
[2019-08-08] MEDS ORDERED: LIDOCAINE 4% PATCH TP SCH (04:00)
== END 2019-08-07 08:31 | disposition left against medical advice (07) ==
LOC: ER 21:00 → ERHOLD 23:03
PROVIDERS: ADMIT Internal Medicine; ATTEND Internal Medicine
DX: I16.1 Hypertensive emergency (principal); R07.89 Other chest pain; I20.0 Unstable angina; I50.9 Heart failure, unspecified; E03.9 Hypothyroidism, unspecified; G47.33 Obstructive sleep apnea (adult) (pediatric); Z85.72 Personal history of non-Hodgkin lymphomas; I13.0 Hypertensive heart and chronic kidney disease with heart failure and stage 1 through stage 4 chronic kidney disease, or unspecified chronic kidney disease; E11.22 Type 2 diabetes mellitus with diabetic chronic kidney disease; N18.9 Chronic kidney disease, unspecified; Z88.5 Allergy status to narcotic agent; Z88.2 Allergy status to sulfonamides; Z88.8 Allergy status to other drugs, medicaments and biological substances; Z76.5 Malingerer [conscious simulation]; E66.01 Morbid (severe) obesity due to excess calories; Z68.42 Body mass index [BMI] 45.0-49.9, adult; M54.12 Radiculopathy, cervical region; Z79.4 Long term (current) use of insulin
CPT/HCPCS: 36415 ×2; 71045; 71260; 80053; 80307; 81001; 82550 ×2; 82553 ×2; 83880; 84484 ×2; 85025; 85379; 87635; 93005; 99284; G0378 ×2; J0360; J2270; J2405; Q9967

== ENCOUNTER 2020-03-04 12:00 | Inpatient (IN) | payer OTHER ==
[~2020-03-04] VITALS: Ht 195.6 cm; Wt 154.2 kg
[~2020-03-04 12:00] MED LIST changes: +CARVEDILOL12.5 MG PO; +[UNRECOGNIZED DRUG - OTHER] SC
[2020-03-04] MEDS ORDERED: MORPHINE SULFATE 2 MG/ML SYR 1ML IV NR (12:30)
[2020-03-04] MEDS ORDERED: ONDANSETRON HCL INJ 2MG/ML 2ML 2 MG/ML VIAL IV NR (12:30)
[2020-03-04] MEDS ORDERED: LACTATED RINGER'S 1,000 ML INJ ONE (12:30)
[2020-03-04 12:57] LABS: BASOPHILS % 0.2 % (0.0-1.0); EOSINOPHILS # (AUTO) 0.1 (0.0-0.4); EOSINOPHILS % 1.4 % (0.0-6.0); HEMATOCRIT 44.4 % (38.2-49.6); HEMOGLOBIN 15.8 g/dL (14.0-18.0); LYMPHOCYTES # (AUTO) 1.2 (1.0-3.2); LYMPHOCYTES % 23.6 % (18.0-39.1); MEAN CORPUSCULAR HEMOGLOBIN 30.7 pg (28-32); MEAN CORPUSCULAR HGB CONC 35.6 g/dL (31-35); MEAN CORPUSCULAR VOLUME 86.2 fL (81-99); MONOCYTES # (AUTO) 0.3 (0.2-0.8); MONOCYTES % 6.4 % (4.4-11.3); NEUTROPHILS # (AUTO) 3.4 (2.1-6.9); NEUTROPHILS % 67.6 % (38.7-80.0); PLATELET COUNT 106 x10e3/uL (140-360); RED BLOOD COUNT 5.15 x10e6/uL (4.3-5.7); RED CELL DISTRIBUTION WIDTH 12.5 % (11.7-14.4)
[2020-03-04 13:16] LABS: ALANINE AMINOTRANSFERASE 22 IU/L (0-55); ALBUMIN 3.4 g/dL (3.5-5.0); ALKALINE PHOSPHATASE 74 IU/L (40-150); ANION GAP 24.3 mmol/L (8-16); BLOOD UREA NITROGEN 21 mg/dL (7-26); BUN/CREATININE RATIO 19 (6-25); CALCIUM 9.2 mg/dL (8.4-10.2); CARBON DIOXIDE 17 mmol/L (22-29); CHLORIDE 96 mmol/L (98-107); CREATININE, SERUM 1.12 mg/dL (0.72-1.25); EST GLOMERULAR FILTRATION RATE > 60 ML/MIN (60-); GLUCOSE 288 mg/dL (74-118); POTASSIUM 3.3 mmol/L (3.5-5.1); SODIUM 134 mmol/L (136-145)
[2020-03-04 13:26] LABS: AMYLASE 70 U/L (25-125); LIPASE 26 U/L (8-78)
[2020-03-04] MEDS: MORPHINE SULFATE INJ 4 MG/ML INJ 1ML IV PRN ×2 (15:11→22:23)
[2020-03-04] MEDS ORDERED: DEXTROSE 5%/0.9% SOD CHL 1,000 ML IV ONE (16:00)
[2020-03-04] MEDS ORDERED: INSULIN REGULAR, HUMAN 3ML VL 100 UNIT in SODIUM CHLORIDE 0.9% 100 ML 99 ML IV SCH ×2 (16:00)
[2020-03-04 16:58] LABS: CLARITY,URINE SL CLOUDY (CLEAR); COLOR,URINE YELLOW (YELLOW); KETONES,URINE NEGATIVE (NEGATIVE); LEUKOCYTE ESTERASE ,URINE NEGATIVE (NEGATIVE); NITRITE,URINE NEGATIVE (NEGATIVE); PROTEIN,URINE DIPSTICK >=300 (NEGATIVE)
[2020-03-04 16:59] LABS: URINE UROBILINOGEN 0.2 mg/dL (0.2 - 1)
[2020-03-04] MEDS ORDERED: [UNRECOGNIZED DRUG - OTHER] SC SCH (17:00)
[2020-03-04 17:10] LABS: BACTERIA,URINE RARE /HPF; RBC,URINE 0-5 /HPF (0-5); WBC,URINE (MAN) 0-5 /HPF (0-5)
[2020-03-04] MEDS: DEXTROSE 5%/LACTATED RINGERS 1,000 ML IV SCH (17:40)
[2020-03-04] MEDS: CARVEDILOL 12.5 MG TAB PO SCH (18:18)
[2020-03-04] MEDS: HYDROMORPHONE HCL 2 MG TAB PO PRN (18:18)
[2020-03-04] MEDS ORDERED: DEXTROSE 10% 1,000 ML IV ONE ×2 (18:30→18:36)
[2020-03-04] MEDS: POTASSIUM CHLORIDE 20 MEQ TAB CR PO PRN (18:50)
[2020-03-04] MEDS ORDERED: DEXTROSE 50% SYRINGE 50 ML IV STA (19:38)
[2020-03-04] MEDS ORDERED: DEXTROSE 50% SYRINGE 50 ML IV ONE (19:43)
[2020-03-04] MEDS ORDERED: NALOXONE HCL INJ 0.4 MG/ML AMP IV PRN (21:15)
[2020-03-05 00:37] VITALS: BP 189/104
[2020-03-05] MEDS: DEXTROSE 5%/LACTATED RINGERS 1,000 ML IV SCH ×3 (03:35→20:54)
[2020-03-05] MEDS: HYDROMORPHONE 1MG/1ML INJ IV PRN ×5 (03:35→22:55)
[2020-03-05 04:37] LABS: BASOPHILS % 0.3 % (0.0-1.0); EOSINOPHILS % 0.3 % (0.0-6.0); HEMATOCRIT 40.7 % (38.2-49.6); HEMOGLOBIN 14.6 g/dL (14.0-18.0); LYMPHOCYTES # (AUTO) 1.1 (1.0-3.2); LYMPHOCYTES % 14.2 % (18.0-39.1); MEAN CORPUSCULAR HEMOGLOBIN 30.7 pg (28-32); MEAN CORPUSCULAR HGB CONC 35.9 g/dL (31-35); MEAN CORPUSCULAR VOLUME 85.7 fL (81-99); MONOCYTES # (AUTO) 0.6 (0.2-0.8); NEUTROPHILS # (AUTO) 6.1 (2.1-6.9); NEUTROPHILS % 77.8 % (38.7-80.0); PLATELET COUNT 104 x10e3/uL (140-360); RED BLOOD COUNT 4.75 x10e6/uL (4.3-5.7); RED CELL DISTRIBUTION WIDTH 12.5 % (11.7-14.4)
[2020-03-05 04:59] LABS: ANION GAP 15.4 mmol/L (8-16); BLOOD UREA NITROGEN 17 mg/dL (7-26); BUN/CREATININE RATIO 23 (6-25); CALCIUM 8.3 mg/dL (8.4-10.2); CARBON DIOXIDE 23 mmol/L (22-29); CHLORIDE 101 mmol/L (98-107); CREATININE, SERUM 0.75 mg/dL (0.72-1.25); EST GLOMERULAR FILTRATION RATE > 60 ML/MIN (60-); GLUCOSE 149 mg/dL (74-118); POTASSIUM 3.4 mmol/L (3.5-5.1); SODIUM 136 mmol/L (136-145)
[2020-03-05] MEDS: LEVOTHYROXINE SODIUM 100 MCG TAB PO SCH (05:06)
[2020-03-05] MEDS ORDERED: INSULIN LISPRO 100 UNIT/1 ML 3ML VIAL SQ SCH ×2 (08:00)
[2020-03-05 08:30] VITALS: BP 189/104
[2020-03-05] MEDS ORDERED: ATORVASTATIN 40 MG TAB PO SCH (09:00)
[2020-03-05] MEDS ORDERED: PANTOPRAZOLE SOD 40 MG TABEC PO SCH (09:00)
[2020-03-05] MEDS ORDERED: DOCUSATE SODIUM 100 MG CAP PO SCH (09:00)
[2020-03-05] MEDS ORDERED: FENOFIBRATE 145 MG TAB PO SCH (09:00)
[2020-03-05] MEDS ORDERED: LEVOTHYROXINE SODIUM 50 MCG TAB PO SCH (09:00)
[2020-03-05] MEDS ORDERED: NON-FORMULARY MEDICATION (Atorvastatin Calcium 40 MG) PO SCH (09:00)
[2020-03-05] MEDS ORDERED: NON-FORMULARY MEDICATION (Fenofibrate 160 MG) PO SCH (09:00)
[2020-03-05] MEDS: SERTRALINE HCL 50 MG TAB PO SCH (09:42)
[2020-03-05] MEDS: POTASSIUM CHLORIDE 20 MEQ TAB CR PO SCH (09:42)
[2020-03-05] MEDS: CARVEDILOL 12.5 MG TAB PO SCH ×2 (09:42→17:15)
[2020-03-05] MEDS: POTASSIUM CHLORIDE 20 MEQ TAB CR PO PRN (09:42)
[2020-03-05] MEDS: PANTOPRAZOLE 40 MG 10ML VIAL IV SCH (09:42)
[2020-03-05 09:43] VITALS: BP 180/91
[2020-03-05] MEDS: AMLODIPINE BESYLATE 10 MG TAB PO SCH (09:43)
[2020-03-05] MEDS ORDERED: IOPAMIDOL 370 MG/ML 200 ML INFUS..BTL INJ ONE (10:00)
[2020-03-05] MEDS ORDERED: SODIUM CHLORIDE 0.9% 50ML 50 ML ONE (10:00)
[2020-03-05] MEDS ORDERED: DEXTROSE 50% SYRINGE 50 ML IV PRN (15:45)
[2020-03-05 16:37] VITALS: BP 159/93
[2020-03-05] MEDS: INSULIN REGULAR, HUMAN 100 UNIT/1 ML 3ML VIAL SQ SCH ×2 (17:05→20:49)
[2020-03-05] MEDS: HYDROMORPHONE HCL 2 MG TAB PO PRN (17:16)
[2020-03-05 20:00] VITALS: BP 151/92
[2020-03-05] MEDS ORDERED: FENOFIBRATE 145 MG TAB PO STA (22:57)
[2020-03-05] MEDS ORDERED: POTASSIUM CHLORIDE 20 MEQ TAB CR PO STA (23:36)
[2020-03-06] VITALS (7 sets, daily range): BP systolic 150–177; BP diastolic 84–108
[2020-03-06] MEDS: HYDROMORPHONE 1MG/1ML INJ IV PRN ×4 (03:11→16:57)
[2020-03-06] MEDS: LEVOTHYROXINE SODIUM 100 MCG TAB PO SCH (05:08)
[2020-03-06] MEDS: DEXTROSE 5%/LACTATED RINGERS 1,000 ML IV SCH ×2 (05:08→17:07)
[2020-03-06 05:13] LABS: BASOPHILS % 0.2 % (0.0-1.0); EOSINOPHILS # (AUTO) 0.1 (0.0-0.4); EOSINOPHILS % 2.9 % (0.0-6.0); HEMOGLOBIN 14.1 g/dL (14.0-18.0); LYMPHOCYTES # (AUTO) 1.6 (1.0-3.2); LYMPHOCYTES % 34.2 % (18.0-39.1); MEAN CORPUSCULAR HEMOGLOBIN 30.3 pg (28-32); MEAN CORPUSCULAR HGB CONC 34.4 g/dL (31-35); MEAN CORPUSCULAR VOLUME 88.2 fL (81-99); MONOCYTES # (AUTO) 0.4 (0.2-0.8); MONOCYTES % 8.6 % (4.4-11.3); NEUTROPHILS # (AUTO) 2.5 (2.1-6.9); NEUTROPHILS % 53.7 % (38.7-80.0); PLATELET COUNT 102 x10e3/uL (140-360); RED BLOOD COUNT 4.65 x10e6/uL (4.3-5.7); RED CELL DISTRIBUTION WIDTH 13.2 % (11.7-14.4)
[2020-03-06 05:29] LABS: ALANINE AMINOTRANSFERASE 24 IU/L (0-55); ALBUMIN 2.9 g/dL (3.5-5.0); ALBUMIN/GLOBULIN RATIO 1.1 (0.8-2.0); ALKALINE PHOSPHATASE 54 IU/L (40-150); AMYLASE 59 U/L (25-125); ANION GAP 10.8 mmol/L (8-16); BLOOD UREA NITROGEN 13 mg/dL (7-26); BUN/CREATININE RATIO 17 (6-25); CALCIUM 8.2 mg/dL (8.4-10.2); CARBON DIOXIDE 27 mmol/L (22-29); CHLORIDE 104 mmol/L (98-107); CREATININE, SERUM 0.78 mg/dL (0.72-1.25); EST GLOMERULAR FILTRATION RATE > 60 ML/MIN (60-); GLUCOSE 149 mg/dL (74-118); LIPASE 9 U/L (8-78); POTASSIUM 3.8 mmol/L (3.5-5.1); SODIUM 138 mmol/L (136-145)
[2020-03-06] MEDS: INSULIN REGULAR, HUMAN 100 UNIT/1 ML 3ML VIAL SQ SCH ×3 (07:30→16:30)
[2020-03-06] MEDS: PANTOPRAZOLE 40 MG 10ML VIAL IV SCH (07:56)
[2020-03-06] MEDS: SERTRALINE HCL 50 MG TAB PO SCH (08:00)
[2020-03-06] MEDS: AMLODIPINE BESYLATE 10 MG TAB PO SCH (08:00)
[2020-03-06] MEDS: POTASSIUM CHLORIDE 20 MEQ TAB CR PO SCH (08:00)
[2020-03-06] MEDS: CARVEDILOL 12.5 MG TAB PO SCH ×2 (08:04→17:53)
[2020-03-06] MEDS ORDERED: TRICOR145 MG PO (16:05)
[2020-03-06] MEDS ORDERED: FENOFIBRATE 145 MG TAB PO SCH (21:00)
== END 2020-03-06 19:00 | disposition home or self-care (01) | DRG 391 ==
LOC: ER 12:49 → ERHOLD 16:25 → IMCU 21:20 → MED/SURG 03-05 20:06
PROVIDERS: ADMIT Internal Medicine; ATTEND Internal Medicine
DX: R10.9 Unspecified abdominal pain (principal); E11.11 Type 2 diabetes mellitus with ketoacidosis with coma; Z68.41 Body mass index [BMI] 40.0-44.9, adult; E78.1 Pure hyperglyceridemia; I10 Essential (primary) hypertension; E78.5 Hyperlipidemia, unspecified; E03.9 Hypothyroidism, unspecified; G47.33 Obstructive sleep apnea (adult) (pediatric); Z91.14 Patient's other noncompliance with medication regimen; E66.9 Obesity, unspecified; Z87.891 Personal history of nicotine dependence
CPT/HCPCS: 36415; 71045; 74018; 74160; 76700; 80048; 80053; 81001; 82150; 82948; 83690; 84478; 85025; 94660; 99284; J1170; J1817; J2270; J2405; J7042; J7121; J7799; Q9967; U0002

== ENCOUNTER 2022-05-26 16:35 | Inpatient (IN) | payer OTHER ==
[~2022-05-26] VITALS: Ht 195.6 cm; Wt 154.2 kg
[~2022-05-26 16:35] MED LIST changes: +TRICOR145 MG PO
[2022-05-26] MEDS ORDERED: Morphine 4mg INJECTION 4 MG/ML INJ IV STA (17:29)
[2022-05-26] MEDS ORDERED: ONDANSETRON HCL INJ 2MG/ML 2ML 2 MG/ML VIAL IV STA (17:29)
[2022-05-26 17:30] LABS: BASOPHILS % 0.4 % (0.0-1.0); EOSINOPHILS # (AUTO) 0.1 (0.0-0.4); EOSINOPHILS % 1.1 % (0.0-6.0); HEMATOCRIT 42.8 % (38.2-49.6); HEMOGLOBIN 15.1 g/dL (14.0-18.0); LYMPHOCYTES # (AUTO) 1.3 (1.0-3.2); LYMPHOCYTES % 29.7 % (18.0-39.1); MEAN CORPUSCULAR HEMOGLOBIN 31.3 pg (28-32); MEAN CORPUSCULAR HGB CONC 35.3 g/dL (31-35); MEAN CORPUSCULAR VOLUME 88.6 fL (81-99); MONOCYTES # (AUTO) 0.4 (0.2-0.8); MONOCYTES % 7.8 % (4.4-11.3); NEUTROPHILS # (AUTO) 2.7 (2.1-6.9); NEUTROPHILS % 60.6 % (38.7-80.0); PLATELET COUNT 116 x10e3/uL (140-360); RED BLOOD COUNT 4.83 x10e6/uL (4.3-5.7); RED CELL DISTRIBUTION WIDTH 12.5 % (11.7-14.4)
[2022-05-26 17:46] LABS: ALANINE AMINOTRANSFERASE 27 IU/L (0-55); ALBUMIN 3.3 g/dL (3.5-5.0); ALBUMIN/GLOBULIN RATIO 0.9 (0.8-2.0); ALKALINE PHOSPHATASE 115 IU/L (40-150); ANION GAP 16.9 mmol/L (8-16); BLOOD UREA NITROGEN 26 mg/dL (7-26); BUN/CREATININE RATIO 16 (6-25); CALCIUM 8.9 mg/dL (8.4-10.2); CARBON DIOXIDE 22 mmol/L (22-29); CHLORIDE 95 mmol/L (98-107); CREATINE KINASE 83 IU/L (30-200); CREATININE, SERUM 1.59 mg/dL (0.72-1.25); POTASSIUM 3.9 mmol/L (3.5-5.1); SODIUM 130 mmol/L (136-145)
[2022-05-26 17:55] LABS: GLUCOSE 526 mg/dL (74-118)
[2022-05-26] MEDS ORDERED: INSULIN REGULAR, HUMAN 100 UNIT/1 ML IV ONE (18:00)
[2022-05-26] MEDS ORDERED: SODIUM CHLORIDE 0.9% 1000ML 1,000 ML IV STA (18:05)
[2022-05-26] MEDS ORDERED: HYDRALAZINE HCL 20 MG/ML VIAL IV STA ×2 (18:23→20:16)
[2022-05-26] MEDS ORDERED: NITROGLYCERIN 2% OINT 1 GM PKT TOP ONE (19:15)
[2022-05-26] MEDS ORDERED: SODIUM CHLORIDE 0.9% 1000ML 1,000 ML IV SCH (19:30)
[2022-05-26] MEDS ORDERED: Morphine 4mg INJECTION 4 MG/ML INJ IV PRN ×2 (19:30→23:30)
[2022-05-26] MEDS ORDERED: ONDANSETRON HCL INJ 2MG/ML 2ML 2 MG/ML VIAL IV PRN ×2 (19:30→23:30)
[2022-05-26] MEDS ORDERED: DEXTROSE 50% SYRINGE 50 ML IV PRN ×2 (19:30→23:30)
[2022-05-26] MEDS ORDERED: HYDRALAZINE HCL 20 MG/ML VIAL IV PRN ×2 (19:45→23:30)
[2022-05-26] MEDS ORDERED: FUROSEMIDE INJ 10 MG/ML 4 ML VIAL IV ONE (19:50)
[2022-05-26] MEDS ORDERED: LABETALOL HCL 5 MG/ML 20ML VIAL IV STA (21:19)
[2022-05-26] MEDS: INSULIN LISPRO 100 UNIT/1 ML 3ML VIAL SQ SCH (21:40)
[2022-05-26 23:18] VITALS: BP 150/91
[2022-05-26 23:27] VITALS: BP 150/91
[2022-05-26] MEDS ORDERED: MELATONIN 5 MG TABLET PO PRN (23:30)
[2022-05-26] MEDS ORDERED: POTASSIUM CHLORIDE 20 MEQ TAB CR PO PRN (23:30)
[2022-05-26] MEDS ORDERED: INSULIN GLARGINE 100 UNITS/ML VIAL SQ SCH (23:30)
[2022-05-26] MEDS ORDERED: BENZONATATE 100 MG CAP PO PRN (23:30)
[2022-05-26] MEDS ORDERED: DIPHENHYDRAMINE HCL 25 MG CAP PO PRN (23:30)
[2022-05-26] MEDS ORDERED: ACETAMINOPHEN 325 MG TAB PO PRN (23:30)
[2022-05-26] MEDS ORDERED: LIDOCAINE 4% PATCH TP PRN (23:30)
[2022-05-26] MEDS ORDERED: ALBUTEROL/IPRATROPIUM 3 ML NEB NEB PRN (23:30)
[2022-05-26] MEDS ORDERED: DOCUSATE SODIUM 100 MG CAP PO PRN (23:30)
[2022-05-26] MEDS ORDERED: SIMETHICONE 80 MG CHEW PO PRN (23:30)
[2022-05-26] MEDS: SODIUM CHLORIDE 0.9% 1000ML 1,000 ML IV SCH (23:44)
[2022-05-27 01:45] LABS: CREATINE KINASE MB 2.1 ng/mL (0-5.0)
[2022-05-27 05:14] VITALS: BP 156/81
[2022-05-27 05:26] LABS: BASOPHILS % 0.4 % (0.0-1.0); EOSINOPHILS # (AUTO) 0.1 (0.0-0.4); HEMATOCRIT 41.8 % (38.2-49.6); HEMOGLOBIN 14.4 g/dL (14.0-18.0); LYMPHOCYTES # (AUTO) 1.3 (1.0-3.2); LYMPHOCYTES % 26.3 % (18.0-39.1); MEAN CORPUSCULAR HEMOGLOBIN 30.9 pg (28-32); MEAN CORPUSCULAR HGB CONC 34.4 g/dL (31-35); MEAN CORPUSCULAR VOLUME 89.7 fL (81-99); MONOCYTES # (AUTO) 0.5 (0.2-0.8); MONOCYTES % 9.6 % (4.4-11.3); NEUTROPHILS # (AUTO) 3.1 (2.1-6.9); NEUTROPHILS % 62.1 % (38.7-80.0); PLATELET COUNT 110 x10e3/uL (140-360); RED BLOOD COUNT 4.66 x10e6/uL (4.3-5.7); RED CELL DISTRIBUTION WIDTH 12.5 % (11.7-14.4)
[2022-05-27 05:59] LABS: ALBUMIN 2.9 g/dL (3.5-5.0); ANION GAP 14.6 mmol/L (8-16); CALCIUM 8.5 mg/dL (8.4-10.2); CREATININE, SERUM 1.28 mg/dL (0.72-1.25); POTASSIUM 3.6 mmol/L (3.5-5.1)
[2022-05-27 06:14] LABS: CHOL/HDL RATIO 9.1 (3.9-4.7); CHOLESTEROL 255 MD/DL (0-199); HDL CHOLESTEROL 28 MG/DL (40-60); MAGNESIUM 1.9 MG/DL (1.3-2.1); TRIGLYCERIDES 784 MG/DL (0-149)
[2022-05-27 08:00] VITALS: BP 164/108
[2022-05-27 08:15] VITALS: BP 164/108
[2022-05-27 08:35] LABS: CREATINE KINASE MB 1.8 ng/mL (0-5.0)
[2022-05-27] MEDS ORDERED: ATORVASTATIN 40 MG TAB PO SCH (09:00)
[2022-05-27] MEDS: FENOFIBRATE 145 MG TAB PO SCH (09:11)
[2022-05-27] MEDS: LEVOTHYROXINE SODIUM 50 MCG TAB PO SCH (09:11)
[2022-05-27] MEDS: CLOPIDOGREL BISULFATE 75 MG TAB PO SCH (09:11)
[2022-05-27] MEDS: PANTOPRAZOLE SOD 40 MG TABEC PO SCH (09:11)
[2022-05-27] MEDS: SERTRALINE HCL 50 MG TAB PO SCH (09:12)
[2022-05-27] MEDS: Morphine 2mg Syringe 2 MG/ML SYR IV PRN ×4 (09:13→23:05)
[2022-05-27] MEDS: AMLODIPINE BESYLATE 10 MG TAB PO SCH (09:13)
[2022-05-27] MEDS: CARVEDILOL 12.5 MG TAB PO SCH ×2 (09:13→16:38)
[2022-05-27] MEDS: INSULIN LISPRO 100 UNIT/1 ML 3ML VIAL SQ SCH ×5 (09:15→20:47)
[2022-05-27] MEDS: SODIUM CHLORIDE 0.9% 1000ML 1,000 ML IV SCH (09:23)
[2022-05-27 11:35] VITALS: BP 141/89
[2022-05-27] MEDS ORDERED: FENOFIBRATE 145 MG TAB PO SCH (12:00)
[2022-05-27] MEDS: VALSARTAN 160 MG TAB PO SCH (12:41)
[2022-05-27] MEDS: ENOXAPARIN SOD INJ 40 MG/0.4 ML SYR SC SCH (16:38)
[2022-05-27 17:08] VITALS: BP 159/87
[2022-05-27 20:26] VITALS: BP 160/78
[2022-05-27] MEDS ORDERED: INSULIN GLARGINE 100 UNITS/ML VIAL SQ SCH (21:00)
[2022-05-28] MEDS: SODIUM CHLORIDE 0.9% 1000ML 1,000 ML IV SCH ×2 (02:35→05:30)
[2022-05-28 02:36] VITALS: BP 160/78
[2022-05-28] MEDS: Morphine 2mg Syringe 2 MG/ML SYR IV PRN ×4 (04:26→16:31)
[2022-05-28 06:10] LABS: BASOPHILS % 0.5 % (0.0-1.0); EOSINOPHILS # (AUTO) 0.1 (0.0-0.4); HEMOGLOBIN 13.8 g/dL (14.0-18.0); LYMPHOCYTES # (AUTO) 1.2 (1.0-3.2); LYMPHOCYTES % 31.5 % (18.0-39.1); MEAN CORPUSCULAR HEMOGLOBIN 31.5 pg (28-32); MEAN CORPUSCULAR HGB CONC 34.5 g/dL (31-35); MEAN CORPUSCULAR VOLUME 91.3 fL (81-99); MONOCYTES # (AUTO) 0.4 (0.2-0.8); MONOCYTES % 9.7 % (4.4-11.3); NEUTROPHILS % 54.2 % (38.7-80.0); PLATELET COUNT 111 x10e3/uL (140-360); RED BLOOD COUNT 4.38 x10e6/uL (4.3-5.7); RED CELL DISTRIBUTION WIDTH 12.6 % (11.7-14.4)
[2022-05-28 06:36] LABS: ANION GAP 11.7 mmol/L (8-16); CALCIUM 8.5 mg/dL (8.4-10.2); CREATININE, SERUM 1.29 mg/dL (0.72-1.25); POTASSIUM 3.7 mmol/L (3.5-5.1)
[2022-05-28 08:00] VITALS: BP 173/91
[2022-05-28 08:14] VITALS: BP 173/91
[2022-05-28] MEDS: PANTOPRAZOLE SOD 40 MG TABEC PO SCH (08:20)
[2022-05-28] MEDS: VALSARTAN 160 MG TAB PO SCH (08:21)
[2022-05-28] MEDS: LEVOTHYROXINE SODIUM 50 MCG TAB PO SCH (08:21)
[2022-05-28] MEDS: FENOFIBRATE 145 MG TAB PO SCH (08:21)
[2022-05-28] MEDS: CLOPIDOGREL BISULFATE 75 MG TAB PO SCH (08:21)
[2022-05-28] MEDS: SERTRALINE HCL 50 MG TAB PO SCH (08:22)
[2022-05-28] MEDS: AMLODIPINE BESYLATE 10 MG TAB PO SCH (08:22)
[2022-05-28] MEDS: CARVEDILOL 12.5 MG TAB PO SCH ×2 (08:23→16:29)
[2022-05-28] MEDS: INSULIN LISPRO 100 UNIT/1 ML 3ML VIAL SQ SCH ×5 (08:25→16:30)
[2022-05-28] MEDS ORDERED: ONDANSETRON HCL 4 MG ORAL DISINTEGRATING TAB SL PRN (11:00)
[2022-05-28 12:00] VITALS: BP 151/90
[2022-05-28] MEDS ORDERED: NIFEDIPINE ER30 M1 PO (13:43)
[2022-05-28] MEDS ORDERED: LANTUS 3ML100 UNITS/ SQ (14:59)
[2022-05-28] MEDS ORDERED: HUMALOG100 UNIT/3 SQ (14:59)
[2022-05-28] MEDS: ENOXAPARIN SOD INJ 40 MG/0.4 ML SYR SC SCH (16:29)
[2022-05-28] MEDS ORDERED: INSULIN LISPRO 100 UNIT/1 ML 3ML VIAL SQ SCH (16:30)
[2022-05-28] MEDS ORDERED: ATORVASTATIN 40 MG TAB PO SCH (21:00)
[2022-05-28] MEDS ORDERED: INSULIN GLARGINE 100 UNITS/ML VIAL SQ SCH (21:00)
== END 2022-05-28 17:35 | disposition home or self-care (01) | DRG 305 ==
LOC: ER 17:04 → ERHOLD 19:25 → MED/SURG3 22:30
PROVIDERS: ADMIT Internal Medicine; ATTEND Internal Medicine
DX: I16.0 Hypertensive urgency (principal); Z68.41 Body mass index [BMI] 40.0-44.9, adult; E11.22 Type 2 diabetes mellitus with diabetic chronic kidney disease; Z20.822 Contact with and (suspected) exposure to COVID-19; E78.5 Hyperlipidemia, unspecified; E78.1 Pure hyperglyceridemia; E03.9 Hypothyroidism, unspecified; E66.01 Morbid (severe) obesity due to excess calories; I12.9 Hypertensive chronic kidney disease with stage 1 through stage 4 chronic kidney disease, or unspecified chronic kidney disease; N18.9 Chronic kidney disease, unspecified; G47.33 Obstructive sleep apnea (adult) (pediatric); I45.10 Unspecified right bundle-branch block; E11.65 Type 2 diabetes mellitus with hyperglycemia; F32.A Depression, unspecified; Z91.199 Patient's noncompliance with other medical treatment and regimen due to unspecified reason; Z79.4 Long term (current) use of insulin; Z79.02 Long term (current) use of antithrombotics/antiplatelets; Z96.659 Presence of unspecified artificial knee joint
CPT/HCPCS: 0223U; 36415; 71045; 71046; 80048; 80053; 80061; 82550; 82553; 82948; 83036; 83735; 83880; 84439; 84443; 84484; 85025; 93005; 94660; 94799; 99284; J1650; J1817; J1940; J2270; J2405; J7030

== ENCOUNTER 2022-06-23 16:10 | Emergency (ER) | payer OTHER ==
[~2022-06-23] VITALS: Ht 193 cm; Wt 149.7 kg
[~2022-06-23 16:10] MED LIST changes: +LANTUS 3ML100 UNITS/ SQ; +NIFEDIPINE ER30 M1 PO
[2022-06-23 17:03] LABS: BASOPHILS % 0.4 % (0.0-1.0); EOSINOPHILS # (AUTO) 0.1 (0.0-0.4); HEMATOCRIT 42.6 % (38.2-49.6); HEMOGLOBIN 15.4 g/dL (14.0-18.0); LYMPHOCYTES # (AUTO) 1.2 (1.0-3.2); LYMPHOCYTES % 23.8 % (18.0-39.1); MEAN CORPUSCULAR HEMOGLOBIN 31.6 pg (28-32); MEAN CORPUSCULAR HGB CONC 36.2 g/dL (31-35); MEAN CORPUSCULAR VOLUME 87.3 fL (81-99); MONOCYTES # (AUTO) 0.4 (0.2-0.8); NEUTROPHILS # (AUTO) 3.5 (2.1-6.9); NEUTROPHILS % 67.6 % (38.7-80.0); PLATELET COUNT 130 x10e3/uL (140-360); RED BLOOD COUNT 4.88 x10e6/uL (4.3-5.7); RED CELL DISTRIBUTION WIDTH 12.2 % (11.7-14.4)
[2022-06-23] MEDS ORDERED: ACETAMINOPHEN 325 MG TAB PO ONE (17:15)
[2022-06-23 17:18] LABS: ALBUMIN 3.4 g/dL (3.5-5.0); ANION GAP 16.3 mmol/L (8-16); CALCIUM 9.2 mg/dL (8.4-10.2); CREATININE, SERUM 1.38 mg/dL (0.72-1.25); POTASSIUM 3.3 mmol/L (3.5-5.1)
[2022-06-23 17:24] LABS: CREATINE KINASE MB 1.9 ng/mL (0-5.0)
[2022-06-23] MEDS ORDERED: HYDRALAZINE HCL 20 MG/ML VIAL IV STA (18:36)
[2022-06-23 19:04] VITALS: BP 154/95
== END 2022-06-23 19:06 | disposition home or self-care (01) ==
LOC: ER 16:17
DX: R51.9 Headache, unspecified (principal); I10 Essential (primary) hypertension; R94.31 Abnormal electrocardiogram [ECG] [EKG]
CPT/HCPCS: 36415; 71046; 80053; 82550; 82553; 84484; 85025; 93005; 99284; J0360

== ENCOUNTER 2022-07-21 19:45 | Emergency (ER) | payer OTHER ==
[~2022-07-21] VITALS: Ht 193 cm; Wt 149.7 kg
[2022-07-21] MEDS ORDERED: CLEOCIN HCL300 MG PO (20:42)
[2022-07-21] MEDS ORDERED: MUPIROCIN22 GM TOP (20:44)
== END 2022-07-21 21:24 | disposition home or self-care (01) ==
LOC: ER 19:55
DX: L03.032 Cellulitis of left toe (principal); I10 Essential (primary) hypertension; E11.9 Type 2 diabetes mellitus without complications; G47.33 Obstructive sleep apnea (adult) (pediatric); K21.9 Gastro-esophageal reflux disease without esophagitis; F41.9 Anxiety disorder, unspecified; E66.9 Obesity, unspecified; L30.9 Dermatitis, unspecified; Z85.72 Personal history of non-Hodgkin lymphomas
CPT/HCPCS: 99282